=== PATIENT | male | born 1960 | race Caucasian/White ===

== ENCOUNTER → 2018-09-06 | Outpatient (REF) ==
--- NOTE | 2018-09-07 02:00 | REP ---
Clinical: Pain and disability. Technique: Internal rotation, external rotation, and Y view of the left shoulder. Findings: Acromioclavicular joint demonstrates cortical irregularity with spurring and subtle widening. The ossified glenoid rim demonstrates subtle sclerosis and blunting. No obvious periarticular calcifications or loose bodies noted. The subacromial space is normal. Impression: Moderate general degenerative changes Electronically Signed by Jose Qureshi MD 09/07/2018 01:52 A
== END ==
LOC: M SMT 11:57
PROVIDERS: ATTEND Internal Medicine
DX: Z00.00 Encounter for general adult medical examination without abnormal findings (principal)

== ENCOUNTER → 2018-12-30 | Outpatient (CLI) | payer SELFPAY | LOC: M OUTALCOH 10:19 | PROVIDERS: ATTEND Psychiatry & Neurology Psychiatry | DX: F10.10 Alcohol abuse, uncomplicated (principal) ==

== ENCOUNTER 2019-01-19 10:00 | Outpatient (RCR) | payer SELFPAY | END 2019-01-20 | LOC: M OUTALCOH 10:00 | PROVIDERS: ATTEND Psychiatry & Neurology Psychiatry | DX: F10.10 Alcohol abuse, uncomplicated (principal) ==

== ENCOUNTER 2019-02-17 08:00 | Outpatient (RCR) | payer SELFPAY | END 2019-02-19 | LOC: M OUTALCOH 08:00 | PROVIDERS: ATTEND Psychiatry & Neurology Psychiatry | DX: F10.10 Alcohol abuse, uncomplicated (principal) ==

== ENCOUNTER 2019-03-16 09:30 | Outpatient (RCR) | payer SELFPAY | END 2019-03-22 | LOC: M OUTALCOH 09:30 | PROVIDERS: ATTEND Psychiatry & Neurology Psychiatry | DX: F10.10 Alcohol abuse, uncomplicated (principal) ==

== ENCOUNTER 2019-04-10 08:00 | Outpatient (RCR) | payer SELFPAY | END 2019-04-22 | LOC: M OUTALCOH 08:00 | PROVIDERS: ATTEND Psychiatry & Neurology Psychiatry | DX: F10.10 Alcohol abuse, uncomplicated (principal) ==

== ENCOUNTER 2019-04-26 08:57 | Outpatient (RCR) | payer SELFPAY | END 2019-05-22 | LOC: M OUTALCOH 08:57 | PROVIDERS: ATTEND Psychiatry & Neurology Psychiatry | DX: F10.10 Alcohol abuse, uncomplicated (principal) ==

== ENCOUNTER 2019-05-03 13:49 | Outpatient (RCR) | payer SELFPAY | END 2019-05-22 | LOC: M OUTALCOH 13:49 | PROVIDERS: ATTEND Psychiatry & Neurology Psychiatry | DX: F10.10 Alcohol abuse, uncomplicated (principal) ==

== ENCOUNTER 2020-02-05 18:54 | Emergency (ER) | payer MEDICARE, OTHER, SELFPAY ==
[~2020-02-05] VITALS: Ht 177.8 cm; Wt 133.7 kg
[2020-02-05] MEDS ORDERED: OMEP-221 PO (19:06)
[2020-02-05] MEDS ORDERED: LOSA100T50 PO (19:06)
[2020-02-05] MEDS ORDERED: HYDR12CA PO (19:06)
[2020-02-05] MEDS ORDERED: TAMS1CAP17 PO (19:06)
[2020-02-05 19:53] LABS: BASO % 0.8 % (0.0-1.0); EOS # 0.1 10^3/uL (0.0-0.5); EOS % 2.5 % (0.0-3.0); HEMATOCRIT 39.1 % (42.0-52.0); HEMOGLOBIN 13.3 g/dl (13.5-17.5); LYMPH # 0.7 10^3/uL (1.5-5.0); LYMPH % 13.5 % (24.0-44.0); MEAN CORPUSCULAR HEMOGLOBIN 34.1 pg (27.0-33.0); MEAN CORPUSCULAR VOLUME 100.3 fl (80.0-96.0); MONO # 0.7 10^3/uL (0.0-0.8); MONO % 13.5 % (0.0-5.0); NEUTROPHILS # 3.5 10^3/uL (1.5-8.5); NEUTROPHILS % 69.5 % (36.0-66.0); WHITE BLOOD COUNT 5.1 10^3/uL (4.0-10.0)
[2020-02-05 20:04] LABS: INR 1.53; PROTHROMBIN TIME 18.1 SECONDS (11.8-14.0)
[2020-02-05 20:05] LABS: PARTIAL THROMBOPLASTIN TIME 31.7 SECONDS (25.0-38.4)
[2020-02-05] MEDS ORDERED: ISOVUE-370 76% 100ML VIAL As Ordered ONE (20:10)
[2020-02-05 20:15] LABS: PLATELET COUNT, AUTOMATED 96 10^3/uL (150-450)
[2020-02-05 20:17] LABS: ALBUMIN 2.4 GM/DL (3.2-5.2); ALT/SGPT 40 U/L (12-78); BILIRUBIN,DIRECT 2.1 MG/DL (0.0-0.2); BILIRUBIN,TOTAL 5.3 MG/DL (0.2-1.0); C REACTIVE PROTEIN QUANTITATIV 2.36 MG/DL (0.00-0.30); CK-MB VALUE MASS 3.1 NG/ML (<3.6); CPK CREATINE PHOSPHOKINASE 169 U/L (39-308); LIPASE 162 U/L (73-393); MB/CK RELATIVE INDEX 1.83 (< OR =4); NT-PRO BNP 229 PG/ML (<125); TOTAL PROTEIN 6.7 GM/DL (6.4-8.2); TROPONIN I < 0.02 NG/ML (< 0.10)
--- NOTE | 2020-02-05 20:44 | REPVR ---
PROCEDURE INFORMATION: Exam: CT Abdomen And Pelvis With Contrast Exam date and time: 02/05/2020 8:22 PM Age: 60 years old Clinical indication: Abdominal pain; Additional info: Abd swelling TECHNIQUE: Imaging protocol: Computed tomography of the abdomen and pelvis with intravenous contrast. Radiation optimization: All CT scans at this facility use at least one of these dose optimization techniques: automated exposure control; mA and/or kV adjustment per patient size (includes targeted exams where dose is matched to clinical indication); or iterative reconstruction. Contrast material: ISOVUE 370; Contrast volume: 100 ml; Contrast route: IV; COMPARISON: No relevant prior studies available. FINDINGS: Liver: The liver is small in size and slightly irregular in contour. There is hepatic steatosis. There is no focal lesion. Gallbladder and bile ducts: The gallbladder is normal.No calcified calculi. Normal bile ducts. Pancreas: The pancreas is normal. Spleen: There is splenomegaly, 18 cm.. No focal lesion. Adrenals: The adrenals are normal. Kidneys and ureters: The kidneys are normal.No hydronephrosis. Stomach and bowel: There are colonic diverticula. No associated wall thickening or inflammation. Appendix: No evidence of appendicitis. Intraperitoneal space: Moderate to severe ascites in the abdomen and pelvis. No focal fluid collection. No free air. Vasculature: Unremarkable. No abdominal aortic aneurysm. Lymph nodes: Unremarkable. No enlarged lymph nodes. Bladder: The bladder is normal with no evidence of calculi. Reproductive: Unremarkable as visualized. Bones/joints: There are advanced degenerative changes of the lumbar spine. There is moderate compression of the L1 vertebra which appears chronic. No acute fracture is identified. Soft tissues: Unremarkable. IMPRESSION: 1. The liver is irregular in contour without a focal lesion. This is suspicious for cirrhosis. There is also splenomegaly suggestive of portal venous hypertension. 2. There is moderate to severe ascites in the abdomen and pelvis. 3. Minimal colonic diverticula. No evidence of acute diverticulitis. Electronically signed by: Matt Medina On 02/05/2020 20:43:52 PM
[2020-02-05] MEDS ORDERED: LACTULOSE 20 GM/30 ML SYRUP UD PO ONE (21:15)
[2020-02-05] MEDS ORDERED: FUROSEMIDE 40MG/4ML VIAL (J1940) IV ONE (21:15)
[2020-02-05] MEDS ORDERED: LASI20TA3 PO (21:17)
[2020-02-05] MEDS ORDERED: LACT20EL PO (21:17)
[2020-02-05 21:26] VITALS: BP 142/87
[2020-05-22] MEDS ORDERED: METO1TAB32 PO (13:55)
[2020-05-22] MEDS ORDERED: MONT10TA4 PO (13:55)
== END 2020-02-05 21:34 | disposition home or self-care (01) ==
LOC: M ED 18:54
DX: K70.31 Alcoholic cirrhosis of liver with ascites (principal); E72.20 Disorder of urea cycle metabolism, unspecified; I10 Essential (primary) hypertension; J45.909 Unspecified asthma, uncomplicated; Z79.899 Other long term (current) drug therapy
CPT/HCPCS: 74177; 80047; 80076; 82140; 82550; 82553; 83690; 83880; 84484; 85025; 85049; 85055; 85610; 85730; 86140; 93041; 96374; 99284; J1940; Q9967

== ENCOUNTER 2020-03-09 08:20 | Inpatient (IN) | payer MEDICARE, OTHER ==
[~2020-03-09] VITALS: Ht 177.8 cm; Wt 126.8 kg
[~2020-03-09 08:20] MED LIST: HYDR12CA PO; LACT20EL PO; LASI20TA3 PO; LOSA100T50 PO; OMEP-221 PO; TAMS1CAP17 PO
[2020-03-09 09:32] LABS: BASO % 0.8 % (0.0-1.0); EOS # 0.2 10^3/uL (0.0-0.5); EOS % 3.2 % (0.0-3.0); HEMATOCRIT 33.8 % (42.0-52.0); HEMOGLOBIN 11.1 g/dl (13.5-17.5); LYMPH # 0.6 10^3/uL (1.5-5.0); LYMPH % 11.8 % (24.0-44.0); MEAN CORPUSCULAR HEMOGLOBIN 32.9 pg (27.0-33.0); MEAN CORPUSCULAR HGB CONC 32.8 g/dl (32.0-36.5); MEAN CORPUSCULAR VOLUME 100.3 fl (80.0-96.0); MONO # 0.8 10^3/uL (0.0-0.8); NEUTROPHILS # 3.5 10^3/uL (1.5-8.5); RED BLOOD COUNT 3.37 10^6/uL (4.30-6.10); WHITE BLOOD COUNT 5.1 10^3/uL (4.0-10.0)
[2020-03-09 09:33] LABS: PLATELET COUNT, AUTOMATED 96 10^3/uL (150-450)
[2020-03-09 09:42] LABS: INR 1.44; PROTHROMBIN TIME 17.3 SECONDS (11.8-14.0)
[2020-03-09 10:00] LABS: D-DIMER QUANT > 4000.0 ng/ml (<500)
[2020-03-09 10:09] LABS: PARTIAL THROMBOPLASTIN TIME 32.4 SECONDS (25.0-38.4)
--- NOTE | 2020-03-09 10:56 | REP ---
CHEST PORTABLE: REASON: Cough and dyspnea. PRIORS: None. FINDINGS: The technique utilized in obtaining the radiograph has magnified the cardiac silhouette and accentuated the interstitial markings. The superior mediastinal structures are midline. The cardiac silhouette is unremarkable in size, shape, and position. The diaphragmatic surfaces of the lungs are regular, and the costophrenic angles are clear. The pulmonary sr are clear. The imaged osseous structures are intact. IMPRESSION: There is no acute cardiopulmonary disease. Electronically Signed by Aris Hassan DO 03/09/2020 11:00 A
[2020-03-09 11:52] LABS: ALBUMIN 2.2 GM/DL (3.2-5.2); ALT/SGPT 30 U/L (12-78); AMYLASE 36 U/L (25-115); BILIRUBIN,DIRECT 1.2 MG/DL (0.0-0.2); BILIRUBIN,TOTAL 2.5 MG/DL (0.2-1.0); BLOOD UREA NITROGEN 10 MG/DL (7-18); CARBON DIOXIDE LEVEL 30 MEQ/L (21-32); CHLORIDE LEVEL 105 MEQ/L (98-107); CK-MB VALUE MASS 2.5 NG/ML (<3.6); CPK CREATINE PHOSPHOKINASE 152 U/L (39-308); CREATININE FOR GFR 0.82 MG/DL (0.70-1.30); GLOMERULAR FILTRATION RATE > 60.0 (>49); GLUCOSE, FASTING 116 MG/DL (70-100); MB/CK RELATIVE INDEX 1.64 (< OR =4); POTASSIUM SERUM 4.2 MEQ/L (3.5-5.1); SODIUM LEVEL 138 MEQ/L (136-145); THYROXINE (T4) 9.1 UG/DL (4.5-12.0); TOTAL PROTEIN 6.2 GM/DL (6.4-8.2); TROPONIN I < 0.02 NG/ML (< 0.10)
[2020-03-09] MEDS ORDERED: FUROSEMIDE 40MG/4ML VIAL (J1940) IV ONE (13:15)
[2020-03-09] MEDS ORDERED: LACTULOSE 20 GM/30 ML SYRUP UD PO ONE ×2 (13:15→15:00)
[2020-03-09] MEDS ORDERED: CONS10SO3 PO (13:30)
[2020-03-09] MEDS ORDERED: FURO20TA2 PO (13:30)
[2020-03-09] MEDS ORDERED: FLUT44IN INH (13:30)
[2020-03-09] MEDS ORDERED: ISOVUE-370 76% 100ML VIAL As Ordered ONE (13:58)
--- NOTE | 2020-03-09 13:59 | HPEPDOC ---
General Date of Admission 03/09/20 Date of Service: Mar 09, 2020 Chief Complaint The patient is a 60-year-old male admitted with a reason for visit of General Medical. Source: Patient Exam Limitations: No limitations Timing/Duration: Week(s) Severity: Mild, Moderate Associated Symptoms: Shortness of breath History of Present Illness Patient is 60 years old male with past history of EtOH abuse, recently diagnosed cirrhosis, hypertension, arthritis presented hospital with increased abdominal girth and dyspnea. Patient stated that few months ago his been diagnosed with cirrhosis, he was prescribed lactulose and Lasix. However he ran out of medications and for past few days he has been having increased shortness of breath with increased abdominal distention. Patient is poor historian. Patient stated that he continues to drink but less than before, he drinks around 12 beer bottles in a week. In emergency room patient was found to have elevated ammonia level of 63, total bili 2.5, d-dimer 4000. Chest x-ray negative for acute pulmonary infiltrate Home Medications Scheduled Fluticasone Propionate (Flovent Hfa) 44 Mcg/Act Aer.w.adap, 1 PUFF INH BID, (Reported) Furosemide (Furosemide) 20 Mg Tablet, 20 MG PO DAILY, (Reported) Hydrochlorothiazide (Hydrochlorothiazide) 12.5 Mg Capsule, 12.5 MG PO DAILY, (Reported) Losartan Potassium (Losartan Potassium) 100 Mg Tablet, 100 MG PO DAILY, (Reported) Omeprazole (Omeprazole) 40 Mg Capsule.dr, 40 MG PO DAILY, (Reported) Tamsulosin Hcl (Tamsulosin HCl) 0.4 Mg Capsule, 0.4 MG PO DAILY, (Reported) Scheduled PRN Lactulose (Constulose) 10 Gm/15 Ml Solution, 30 ML PO QAM PRN for CONSTIPATION, (Reported) Allergies Coded Allergies: No Known Allergies (Unverified , 02/05/20) Past Medical History Medical History Arthritis, cirrhosis, EtOH abuse, hypertension Family History Mother had diabetes Social History * Smoker: former Smoker Alcohol: heavy Drugs: marijuana A-FIB/CHADSVASC A-FIB History Current/History of A-Fib/PAF?: No Current PO Anticoag Therapy: No Review of Systems Constitutional: Reports: Weakness; Denies: Chills, Fever Eyes: Denies: Pain ENT: Denies: Head Aches Skin: Denies: Rash, Lesions Pulmonary: Reports: Dyspnea Cardiovascular: Denies: Chest Pain, Palpitations Gastrointestinal: Reports: Other Symptoms (abdominal distention); Denies: Nausea, Vomiting Genitourinary: Denies: Dysuria Hematologic: Denies: Bruising Endocrine: Denies: Polydipsia, Polyphagia Musculoskeletal: Denies: Neck Pain, Back Pain Neurological: Denies: Weakness Psych: Reports: Mood Normal Physical Examination General Exam: Positive: Alert, Cooperative Eye Exam: Positive: PERRLA ENT Exam: Positive: Atraumatic Neck Exam: Positive: Supple; Negative: JVD Chest Exam: Positive: Diminished Heart Exam: Positive: Rate Normal Telemetry: Positive: No significant arrhythmia Abdomen Exam: Positive: BS Hypoactive, Other (significant abdominal distention) Extremity Exam: Negative: Clubbing, Cyanosis Skin Exam: Positive: Nl turgor and temperature Neuro Exam: Positive: Strength at 5/5 X4 ext, Cranial Nerves 3-12 NL Psych Exam: Positive: Mental status NL Vital Signs Vital Signs Date Time Temp Pulse Resp B/P (MAP) Pulse Ox O2 Delivery O2 Flow Rate FiO2 03/09/20 11:45 87 20 108/63 (78) 92 Room Air 03/09/20 08:21 99.1 Laboratory Data Labs 24H Laboratory Tests 2 03/09/20 09:17: Immature Granulocyte % (Auto) 0.2, Neutrophils (%) (Auto) 68.0H, Lymphocytes (%) (Auto) 11.8L, Monocytes (%) (Auto) 16.0H, Eosinophils (%) (Auto) 3.2H, Basophils (%) (Auto) 0.8, Neutrophils # (Auto) 3.5, Lymphocytes # (Auto) 0.6L, Monocytes # (Auto) 0.8, Eosinophils # (Auto) 0.2, Basophils # (Auto) 0.0, Nucleated Red Blood Cells % (auto) 0.0, Immature Platelet Fraction 3.4, Prothrombin Time 17.3H, Prothromb Time International Ratio 1.44, Activated Partial Thromboplast Time 32.4, D-Dimer, Quantitative > 4000.0H, Anion Gap 3L, Glomerular Filtration Rate > 60.0, Calcium Level 8.0L, Total Bilirubin 2.5H, Direct Bilirubin 1.2H, Aspartate Amino Transf (AST/SGOT) 65H, Alanine Aminotransferase (ALT/SGPT) 30, Alkaline Phosphatase 192H, Ammonia 63H, Total Creatine Kinase 152, Creatine Kinase MB 2.5, Creatine Kinase MB Relative Index 1.64, Troponin I < 0.02, Total Protein 6.2L, Albumin 2.2L, Albumin/Globulin Ratio 0.6, Amylase Level 36, Thyroid Stimulating Hormone (TSH) 1.740, Thyroxine (T4) 9.1 03/09/20 11:21: Urine Color ALEJANDRO, Urine Appearance CLEAR, Urine pH 6.0, Urine Specific [place] 1.014, Urine Protein NEGATIVE, Urine Glucose (UA) NEGATIVE, Urine Ketones NEGATIVE, Urine Blood 1+H, Urine Nitrite POSITIVEH, Urine Bilirubin NEGATIVE, U rine Urobilinogen 4.0H, Urine Leukocyte Esterase 3+H, Urine WBC (Auto) 42H, Urine RBC (Auto) 8H, Urine Hyaline Casts (Auto) 0, Urine Bacteria (Auto) 2+H, Urine Squamous Epithelial Cells 0, Urine Calcium Oxalate Cryst (Auto) SMALL, Urine Mucus (Auto) SMALL, Urine Sperm (Auto) CBC/BMP Laboratory Tests 03/09/20 09:17 Microbiology Microbiology 03/09/20 Urine Culture, Received Pending 03/09/20 Respiratory Virus Panel (PCR) ([facility]) - Final, Complete Assessment/Plan Patient is 60 years old male with past history of EtOH abuse, recently diagnosed cirrhosis, hypertension, arthritis presented hospital with increased abdominal g irth and dyspnea. Patient stated that few months ago his been diagnosed with cirrhosis, he was prescribed lactulose and Lasix. However he ran out of medications and for past few days he has been having increased shortness of breath with increased abdominal distention. Patient is poor historian. Patient stated that he continues to drink but less than before, he drinks around 12 beer bottles in a week. In emergency room patient was found to have elevated ammonia level of 63, total bili 2.5, d-dimer 4000. Chest x-ray negative for acute pulmonary infiltrate Problems (1) Hyperammonemia Status: Acute Problem Text: Most likely secondary to alcoholic cirrhosis Continue lactulose (2) Cirrhosis Status: Chronic Problem Text: Patient been recently diagnosed with cirrhosis, he was running out of Lasix and lactulose We'll do CT abdomen and pelvis. There is concern for ascites given significant abdominal distention Continue lactulose, Lasix and spironolactone (3) Dyspnea Status: Acute Problem Text: Most likely secondary to ascites However d-dimer was significantly elevated Procedures chest CTA Plan / VTE VTE Prophylaxis Ordered?: Yes MILTON GUARDADO DO Mar 09, 2020 13:59
[2020-03-09 15:50] VITALS: BP 128/91
[2020-03-09] MEDS: SPIRONOLACTONE 25 MG TAB PO SCH (17:21)
[2020-03-09] MEDS: FLUTICASONE HFA 44 MCG 10.6GM INHALER (FLOVENT) INH SCH (20:10)
[2020-03-09] MEDS: HEPARIN SOD (PORCINE) 5000UNITS/ML 1ML VIAL/SYRINGE SC SCH (20:33)
[2020-03-09] MEDS: FUROSEMIDE 40MG/4ML VIAL (J1940) IV SCH (20:33)
[2020-03-09] MEDS: THIAMINE 100 MG TAB PO SCH (20:37)
[2020-03-09] MEDS ORDERED: LORazepam 2 MG TAB PO PRN (20:45)
[2020-03-09] MEDS ORDERED: FLUTICASONE HFA 44 MCG 10.6GM INHALER (FLOVENT) INH SCH (21:00)
[2020-03-09 22:00] VITALS: BP 119/84
[2020-03-10] MEDS: ACETAMINOPHEN TAB 650MG DOSE (2X325MG) PO PRN ×3 (00:48→20:25)
[2020-03-10 06:00] VITALS: BP 120/80
[2020-03-10 06:53] LABS: HEMOGLOBIN 10.8 g/dl (13.5-17.5); MEAN CORPUSCULAR HGB CONC 32.7 g/dl (32.0-36.5); MEAN CORPUSCULAR VOLUME 100.9 fl (80.0-96.0); RED BLOOD COUNT 3.27 10^6/uL (4.30-6.10); WHITE BLOOD COUNT 4.4 10^3/uL (4.0-10.0)
[2020-03-10 07:06] LABS: PLATELET COUNT, AUTOMATED 88 10^3/uL (150-450)
[2020-03-10 07:13] LABS: ALBUMIN 1.9 GM/DL (3.2-5.2); ALT/SGPT 26 U/L (12-78); BLOOD UREA NITROGEN 10 MG/DL (7-18); CALCIUM LEVEL 8.4 MG/DL (8.8-10.2); CARBON DIOXIDE LEVEL 31 MEQ/L (21-32); CHLORIDE LEVEL 103 MEQ/L (98-107); CREATININE FOR GFR 0.96 MG/DL (0.70-1.30); GLOMERULAR FILTRATION RATE > 60.0 (>49); GLUCOSE, FASTING 84 MG/DL (70-100); MAGNESIUM LEVEL 1.9 MG/DL (1.8-2.4); POTASSIUM SERUM 3.6 MEQ/L (3.5-5.1); SODIUM LEVEL 140 MEQ/L (136-145); TOTAL PROTEIN 5.9 GM/DL (6.4-8.2)
--- NOTE | 2020-03-10 07:46 | REP ---
REASON: Chest pain. CONTRAST: 100 mL Isovue-370. PRIORS: None. There is suboptimal visualization of the pulmonary arterial vasculature. Tiny emboli cannot be ruled out. No large emboli are present. The thoracic aorta is within normal limits. There is no mediastinal or hilar adenopathy. There are no pleural or pericardial effusions. The imaged osseous structures are within normal limits. The imaged lung sr are within normal limits, showing no abnormal nodules, masses, or opacities. IMPRESSION: Suboptimal examination; however, no significant emboli are identified. Tiny emboli cannot be ruled out. Electronically Signed by Aris Hassan DO 03/10/2020 08:00 A
--- NOTE | 2020-03-10 07:52 | REP ---
REASON: History of cirrhosis. COMPARISON: 02/05/2020 CONTRAST: 100 mL Isovue-370. There is ascites, status quo. The liver, spleen, pancreas, adrenal glands, and kidneys are unchanged. There are cirrhotic features to the liver, status quo. There is no free air. There is no significant change in the bowel loops or their mesenteries. There is no change in the abdominal aorta and para-aortic regions. No acute masses or adenopathy have developed since the last exam. IMPRESSION: No significant change from 02/05/2020. There is evidence of cirrhosis and ascites, status quo. There is mild splenomegaly, status quo. Electronically Signed by Aris Hassan DO 03/10/2020 08:00 A
[2020-03-10] MEDS ORDERED: hydroCHLOROthiazide 12.5 MG CAPSULE PO SCH (09:00)
[2020-03-10] MEDS: HEPARIN SOD (PORCINE) 5000UNITS/ML 1ML VIAL/SYRINGE SC SCH ×2 (09:00→20:24)
[2020-03-10] MEDS: LOSARTAN 50MG TABLET PO SCH (09:00)
[2020-03-10] MEDS: FOLIC ACID 1 MG TAB PO SCH (09:14)
[2020-03-10] MEDS: THIAMINE 100 MG TAB PO SCH ×2 (09:14→20:25)
[2020-03-10] MEDS: SPIRONOLACTONE 25 MG TAB PO SCH ×2 (09:14→17:24)
[2020-03-10] MEDS: MULTIVITAMINS/MINERALS THERAP 1 TAB PO SCH (09:14)
[2020-03-10] MEDS: TAMSULOSIN 0.4 MG CAP PO SCH (09:14)
[2020-03-10] MEDS: LACTULOSE 20 GM/30 ML SYRUP UD PO SCH (09:14)
[2020-03-10] MEDS: FUROSEMIDE 40MG/4ML VIAL (J1940) IV SCH ×2 (09:15→20:25)
[2020-03-10] MEDS: FLUTICASONE HFA 44 MCG 10.6GM INHALER (FLOVENT) INH SCH ×2 (12:15→18:14)
--- NOTE | 2020-03-10 13:57 | IPNPDOC ---
Text Note Date of Service The patient was seen on 03/10/20. NOTE Objective: Patient continues to complain of abdominal distention. Patient stated that he feels better today, he developed a good urine output. Subjective: VITAL SIGNS: Please see below. GENERAL: awake, alert, NAD, morbidly obese HEENT: NCAT, anicteric sclera, GEOFFREY NECK: supple, no JVD CARDIOVASCULAR EXAMINATION: NS1S2, regular rate/rhythm RESPIRATORY EXAMINATION: CTA b/l, no wheezes/rales/rhonchi ABDOMINAL EXAMINATION: positive bowel sounds x 4, NT, severely distended, obese EXTREMITIES: +2 edema bilaterally SKIN: warm, no rashes. NEUROLOGICAL EXAMINATION: AAO x 3, no motor/sensory deficits PSYCHIATRIC EXAMINATION: calm, normal affect Assessment and plan Patient is 60 years old male with past history of EtOH abuse, recently diagnosed cirrhosis, hypertension, arthritis presented hospital with increased abdominal girth and dyspnea. Patient stated that few months ago his been diagnosed with cirrhosis, he was prescribed lactulose and Lasix. However he ran out of medications and for past few days he has been having increased shortness of breath with increased abdominal distention. Patient is poor historian. Patient stated that he continues to drink but less than before, he drinks around 12 beer bottles in a week. In emergency room patient was found to have elevated ammonia level of 63, total bili 2.5, d-dimer 4000. Chest x-ray negative for acute pulmonary infiltrate (1) Hyperammonemia Most likely secondary to alcoholic cirrhosis Continue lactulose (2) Cirrhosis Patient been recently diagnosed with cirrhosis, he was running out of Lasix and lactulose CT abdomen and pelvis showed: There is evidence of cirrhosis and ascites, status quo. There is mild splenomegaly, status quo. Will proceed with diagnostic and therapeutic paracentesis Continue lactulose, Lasix and spironolactone (3) Dyspnea Improved Most likely secondary to ascites CTA was done, negative for PE Macrocytic anemia Most likely secondary to EtOH abuse We'll check B12 and folate EtOH abuse CIWA VS,Fishbone, I+O VS, Fishbone, I+O Laboratory Tests 03/10/20 06:27 Vital Signs Date Time Temp Pulse Resp B/P (MAP) Pulse Ox O2 Delivery O2 Flow Rate FiO2 03/10/20 09:00 112/71 03/10/20 06:00 90 03/10/20 06:00 97.9 20 94 Room Air I&O- Last 24 Hours up to 6 AM 03/10/20 06:00 Intake Total 730 ml Output Total 5575 ml Balance -4845 ml MILTON GUARDADO DO Mar 10, 2020 13:57
[2020-03-10 14:00] VITALS: BP 111/72
--- NOTE | 2020-03-10 19:09 | ECGEPIP ---
[facility] - ED Test Date: 2020-03-09 Pat Name: JORGE VALERIO Department: Room: [place] [id number] Gender: Male Orthopedic Specialist: donovan : 1960 Requested By: JOLIE Riojas Order Number: [id number] Reading MD: Maximino Cabrera Measurements Intervals [place] Rate: 93 P: AL: 0 QRS: -13 QRSD: 81 T: 22 QT: 319 QTc: 398 Interpretive Statements SUPRAVENTRICULAR RHYTHM LOW QRS VOLTAGE IN PRECORDIAL LEADS POOR R WAVE PROGRESSION NONSPECIFIC ST & T-WAVE ABNORMALITY NO PRIORS FOR COMPARISON Electronically Signed on 03-10-2020 19:09:27 EDT by Maximino Cabrera
[2020-03-10 22:00] VITALS: BP 108/71
[2020-03-11 06:00] VITALS: BP 111/69
[2020-03-11] MEDS: FLUTICASONE HFA 44 MCG 10.6GM INHALER (FLOVENT) INH SCH ×2 (07:59→20:15)
[2020-03-11 08:00] VITALS: BP 111/69
[2020-03-11] MEDS: HEPARIN SOD (PORCINE) 5000UNITS/ML 1ML VIAL/SYRINGE SC SCH ×2 (08:12→19:56)
[2020-03-11] MEDS: FUROSEMIDE 40MG/4ML VIAL (J1940) IV SCH ×2 (08:34→19:57)
[2020-03-11] MEDS: LACTULOSE 20 GM/30 ML SYRUP UD PO SCH (08:35)
[2020-03-11] MEDS: TAMSULOSIN 0.4 MG CAP PO SCH (08:36)
[2020-03-11] MEDS: THIAMINE 100 MG TAB PO SCH ×2 (08:36→19:56)
[2020-03-11] MEDS: MULTIVITAMINS/MINERALS THERAP 1 TAB PO SCH (08:36)
[2020-03-11] MEDS: SPIRONOLACTONE 25 MG TAB PO SCH ×2 (08:36→16:45)
[2020-03-11] MEDS: FOLIC ACID 1 MG TAB PO SCH (08:36)
[2020-03-11] MEDS: ACETAMINOPHEN TAB 650MG DOSE (2X325MG) PO PRN ×2 (08:41→19:59)
[2020-03-11 08:59] LABS: HEMATOCRIT 31.9 % (42.0-52.0); HEMOGLOBIN 10.6 g/dl (13.5-17.5); MEAN CORPUSCULAR HEMOGLOBIN 33.7 pg (27.0-33.0); MEAN CORPUSCULAR HGB CONC 33.2 g/dl (32.0-36.5); MEAN CORPUSCULAR VOLUME 101.3 fl (80.0-96.0); RED BLOOD COUNT 3.15 10^6/uL (4.30-6.10); WHITE BLOOD COUNT 3.5 10^3/uL (4.0-10.0)
[2020-03-11] MEDS: LOSARTAN 50MG TABLET PO SCH (09:00)
[2020-03-11 09:01] LABS: PLATELET COUNT, AUTOMATED 81 10^3/uL (150-450)
[2020-03-11 09:15] LABS: INR 1.53; PROTHROMBIN TIME 18.1 SECONDS (11.8-14.0)
[2020-03-11 09:25] LABS: ALT/SGPT 27 U/L (12-78); BILIRUBIN,TOTAL 2.1 MG/DL (0.2-1.0); BLOOD UREA NITROGEN 10 MG/DL (7-18); CALCIUM LEVEL 8.1 MG/DL (8.8-10.2); CARBON DIOXIDE LEVEL 32 MEQ/L (21-32); CHLORIDE LEVEL 101 MEQ/L (98-107); CREATININE FOR GFR 0.97 MG/DL (0.70-1.30); GLOMERULAR FILTRATION RATE > 60.0 (>49); GLUCOSE, FASTING 154 MG/DL (70-100); MAGNESIUM LEVEL 1.9 MG/DL (1.8-2.4); POTASSIUM SERUM 3.5 MEQ/L (3.5-5.1); SODIUM LEVEL 139 MEQ/L (136-145); TOTAL PROTEIN 5.7 GM/DL (6.4-8.2)
[2020-03-11 10:39] LABS: FOLATE > 24.0 NG/ML; VITAMIN B12 LEVEL 1267 PG/ML
[2020-03-11 13:08] LABS: HEPATITIS A ANTIBODY IGM NEGATIVE (NEGATIVE); HEPATITIS B CORE ANTIBODY IGM NEGATIVE (NEGATIVE); HEPATITIS B SURFACE ANTIGEN NEGATIVE (NEGATIVE); HEPATITIS C VIRUS ABY INDEX 0.2 INDEX (<0.8)
[2020-03-11] MEDS ORDERED: SODIUM BICARBONATE 8.4% INJ 50MEQ 50 ML VIAL As Ordered ONE (14:08)
--- NOTE | 2020-03-11 14:49 | IPNPDOC ---
Text Note Date of Service The patient was seen on 03/11/20. NOTE Mr. Okeefe was seen at bedside today and reported no overnight changes to his condition. He has been urinating frequently since being put on the lasix and has experienced no dysuria. He has not yet had a bowel movement but states the he feels he will be going soon. He denies any overnight headaches, SOB, chest pains. Physical Exam: Vitals: See below General: Obese male laying in bed in no apparent distress HEENT: Normocephalic and atraumatic Respiratory: Scattered expiratory wheezing in both lung sr. normal respiratory rate and remainder of sounds unremarkable CV: RRR. +S1,S2. No murmurs, rubs, gallops Abdomen: Obese abdomen. Soft and nontender. No organomegaly noted. No rashes Extremities: 2+ pitting edema to mid thigh Assessment and Plan: This is a 70 year old male with a pmhx significant for recently diagnosed cirrhosis, EtOH abuse (cut back to <2 drinks a day a few months ago) who presented to the hospital with dyspnea and increased abdominal girth 2/2 running out of his home lasix and lactulose medications. In the ER he was found to have a ammonia level of 63, total bilirubin of 2.5, D-dimer of 4000 and a negative CXR. #Hyperammonemia: -Secondary to alcoholic cirrhosis vs DOLL -Continue lactulose - ammonia 45 today, was 63 yesterday #Cirrhosis with ascites: -recent diagnosis -Diagnostic and Therapeutic paracentesis being performed today- Will assess ascitic fluid for WBC > 250 and give abx if appropriate -Continue Furosemide 40 mg BID IV #Macrocyotic anemia: -Mild and likely 2/2 to chronic EtOH abuse but have not ruled out MDS -Vit B12 and folate are normal -Should follow up with PCP outpatient if needed #Hx of EtOH Abuse -Patient states his drinking is much improved as of three months ago - down to 0-2 drinks a day now -CIWA -Hepatitis panel negative -Thiamine HCl 100mg BID PO -Folic Acid 1 mg PO QD -Multivitamin PO QD #DVT Prophylaxis: -Heparin 5000U SC Q12H VS,Fishbone, I+O VS, Fishbone, I+O Laboratory Tests 03/11/20 08:41 Vital Signs Date Time Temp Pulse Resp B/P (MAP) Pulse Ox O2 Delivery O2 Flow Rate FiO2 03/11/20 14:05 98.4 85 16 99 Room Air 03/11/20 09:00 111/69 I&O- Last 24 Hours up to 6 AM 03/11/20 05:59 Intake Total 1300 ml Output Total 1200 ml Balance 100 ml ROBIN BRODERICK OMS-3 Mar 11, 2020 14:49
[2020-03-11 15:19] LABS: APPEARANCE, BODY FLUID HAZY (CLEAR); ASCITES FL COLOR YELLOW (COLORLESS); SOURCE, BODY FLUID ASCITES
[2020-03-11 15:44] LABS: SOURCE, BODY FLUID ALBUMIN ASCITES; SOURCE, BODY FLUID GLUCOSE ASCITES; SOURCE, BODY FLUID TOT PROTEIN ASCITES
[2020-03-11] MEDS: CIPROFLOXACIN 500MG TABLET PO SCH (16:45)
--- NOTE | 2020-03-11 18:43 | REP ---
Ultrasound-guided paracentesis The procedure was performed by ANJANA Gupta, under the direct supervision of Dr. Stoner. The risks and benefits of the procedure were explained to the patient and informed consent was obtained both verbally and written. Directly prior to the start of the procedure, a formal timeout was completed in the procedure room. Under ultrasound guidance, the largest pocket of fluid in the right flank was localized and skin was marked. The skin was then prepped and draped in a sterile fashion. 10 ml of 1% lidocaine 10 mg/ml was used as a local anesthetic. Using ultrasound guidance, an 8-[place] multi side-hole catheter was inserted using trocar technique. 8,450 mL of yellow colored fluid was withdrawn, 200 ml's were sent to the lab for further analysis, and the rest was discarded. The patient tolerated the procedure well and there were no immediate complications. After the appropriate monitored convalescence the patient was discharged from the department. Reviewed by ANJANA Ford 03/11/2020 05:10 P Electronically Signed by Ziggy Stoner MD 03/11/2020 06:34 P
[2020-03-11 20:00] VITALS: BP 111/67
[2020-03-11 22:00] VITALS: BP 111/67
[2020-03-12] VITALS (10 sets, daily range): BP systolic 110–134; BP diastolic 52–84
[2020-03-12] MEDS: CIPROFLOXACIN 500MG TABLET PO SCH (05:38)
[2020-03-12] MEDS: FLUTICASONE HFA 44 MCG 10.6GM INHALER (FLOVENT) INH SCH ×2 (08:00→18:11)
[2020-03-12 08:10] LABS: HEMATOCRIT 35.5 % (42.0-52.0); MEAN CORPUSCULAR HGB CONC 33.8 g/dl (32.0-36.5); MEAN CORPUSCULAR VOLUME 100.6 fl (80.0-96.0); RED BLOOD COUNT 3.53 10^6/uL (4.30-6.10)
[2020-03-12 08:13] LABS: PLATELET COUNT, AUTOMATED 88 10^3/uL (150-450)
[2020-03-12 08:28] LABS: ALT/SGPT 28 U/L (12-78); BILIRUBIN,TOTAL 2.1 MG/DL (0.2-1.0); BLOOD UREA NITROGEN 10 MG/DL (7-18); CALCIUM LEVEL 8.2 MG/DL (8.8-10.2); CARBON DIOXIDE LEVEL 33 MEQ/L (21-32); CHLORIDE LEVEL 101 MEQ/L (98-107); CREATININE FOR GFR 0.88 MG/DL (0.70-1.30); GLOMERULAR FILTRATION RATE > 60.0 (>49); GLUCOSE, FASTING 100 MG/DL (70-100); POTASSIUM SERUM 3.5 MEQ/L (3.5-5.1); SODIUM LEVEL 140 MEQ/L (136-145)
[2020-03-12] MEDS: HEPARIN SOD (PORCINE) 5000UNITS/ML 1ML VIAL/SYRINGE SC SCH ×2 (09:00→20:10)
[2020-03-12] MEDS: LACTULOSE 20 GM/30 ML SYRUP UD PO SCH (09:33)
[2020-03-12] MEDS: FUROSEMIDE 40MG/4ML VIAL (J1940) IV SCH ×2 (09:34→20:10)
[2020-03-12] MEDS: SPIRONOLACTONE 25 MG TAB PO SCH ×2 (09:35→16:32)
[2020-03-12] MEDS: LOSARTAN 50MG TABLET PO SCH (09:36)
[2020-03-12] MEDS: MULTIVITAMINS/MINERALS THERAP 1 TAB PO SCH (09:36)
[2020-03-12] MEDS: TAMSULOSIN 0.4 MG CAP PO SCH (09:36)
[2020-03-12] MEDS: THIAMINE 100 MG TAB PO SCH (09:36)
[2020-03-12] MEDS: FOLIC ACID 1 MG TAB PO SCH (09:36)
--- NOTE | 2020-03-12 12:54 | IPNPDOC ---
Text Note Date of Service The patient was seen on 03/11/20. NOTE Mr. Okeefe was seen at bedside today and reported no overnight changes to his condition. He has been urinating frequently since being put on the lasix and has experienced no dysuria. He has not yet had a bowel movement but states the he feels he will be going soon. He denies any overnight headaches, SOB, chest pains. Physical Exam: Vitals: See below General: Obese male laying in bed in no apparent distress HEENT: Normocephalic and atraumatic Respiratory: Scattered expiratory wheezing in both lung sr. normal respiratory rate and remainder of sounds unremarkable CV: RRR. +S1,S2. No murmurs, rubs, gallops Abdomen: Obese abdomen. Soft and nontender. No organomegaly noted. No rashes Extremities: 2+ pitting edema to mid thigh Assessment and Plan: This is a 70 year old male with a pmhx significant for recently diagnosed cirrhosis, EtOH abuse (cut back to <2 drinks a day a few months ago) who presented to the hospital with dyspnea and increased abdominal girth 2/2 running out of his home lasix and lactulose medications. In the ER he was found to have a ammonia level of 63, total bilirubin of 2.5, D-dimer of 4000 and a negative CXR. #Hyperammonemia: -Secondary to alcoholic cirrhosis vs DOLL -Continue lactulose - ammonia 45 today, was 63 yesterday #Cirrhosis with ascites: -recent diagnosis -Diagnostic and Therapeutic paracentesis being performed today- Will assess ascitic fluid for WBC > 250 and give abx if appropriate -Continue Furosemide 40 mg BID IV #Macrocyotic anemia: -Mild and likely 2/2 to chronic EtOH abuse but have not ruled out MDS -Vit B12 and folate are normal -Should follow up with PCP outpatient if needed #Hx of EtOH Abuse -Patient states his drinking is much improved as of three months ago - down to 0-2 drinks a day now -CIWA -Hepatitis panel negative -Thiamine HCl 100mg BID PO -Folic Acid 1 mg PO QD -Multivitamin PO QD #DVT Prophylaxis: -Heparin 5000U SC Q12H VS,Fishbone, I+O VS, Fishbone, I+O Laboratory Tests 03/12/20 07:44 Vital Signs Date Time Temp Pulse Resp B/P (MAP) Pulse Ox O2 Delivery O2 Flow Rate FiO2 03/12/20 09:36 124/72 03/12/20 05:37 98.0 78 18 93 Room Air I&O- Last 24 Hours up to 6 AM 03/12/20 06:00 Intake Total 980 ml Output Total 40792 ml Balance -9945 ml ROBIN BRODERICK OMS-3 Mar 12, 2020 12:54 MILTON GUARDADO DO Mar 12, 2020 16:35
[2020-03-12] MEDS ORDERED: ALDA25TA2 PO ×3 (15:01→16:34)
--- NOTE | 2020-03-12 16:14 | DS.PDOC ---
Discharge Summary General Date of Admission Mar 09, 2020 at 13:42 Date of Discharge 03/12/2020 Discharge Summary PROCEDURES PERFORMED DURING STAY: [None]. ADMITTING DIAGNOSES: 1. Hyperammonemia 2. Cirrhosis 3. Dyspnea DISCHARGE DIAGNOSES: 1. Cirrhosis with ascites - resolving 2. Macrocytic anemia 3. Hx of EtOH abuse 4. Hx of Asthma COMPLICATIONS/CHIEF COMPLAINT: Ascites Due To Alcoholic Cirrhosis. HISTORY OF PRESENT ILLNESS: Patient is 60 years old male with past history of EtOH abuse, recently diagnosed cirrhosis, hypertension, arthritis presented hospital with increased abdominal girth and dyspnea. Patient stated that few months prior to discharge his been diagnosed with cirrhosis, he was prescribed lactulose and Lasix. However he ran out of medications and for past few days he has been having increased shortness of breath with increased abdominal distention. Patient is poor historian. Patient stated that he continues to drink but less than before, he drinks around 12 beer bottles in a week. In emergency room patient was found to have elevated ammonia level of 63, total bili 2.5, d-dimer 4000. Chest x-ray negative for acute pulmonary infiltrate HOSPITAL COURSE: Following admission Mr Okeefe received Lasix IV as well as lactulose for his hyperammonemia. He responded well to these treatments with reduced ammonia levels and frequent urination. He also received diagnostic and therapeutic abdominocentesis, where approximately 8.5 L of ascitic fluid was removed and found to be below indications of SBP prophylaxis. He was also noted to have a fairly pronounced bacteriuria with mild suprapubic tenderness so he received ciprofloxacin during his stay to treat for UTI. Due to his high paracentesis volume he was given albumin prior to his discharge. He also was found to have a slight macrocytic anemia and was found to not be vitamin B12 or folate deficient. He had a hepatitis panel which was negative. DISCHARGE MEDICATIONS: Please see below. ALLERGIES: Please see below. PHYSICAL EXAMINATION ON DISCHARGE: VITAL SIGNS: Please see below. General: Obese male laying in bed in no apparent distress. HEENT: Normocephalic and atraumatic Respiratory: Scattered expiratory wheezing in both lung sr. normal respiratory rate and remainder of sounds unremarkable. CV: RRR. +S1,S2. No murmurs, rubs, gallops Abdomen: Obese abdomen. Soft and nontender. No organomegaly noted. No rashes Extremities: 2+ pitting edema to mid thigh. no JVD or crackles LABORATORY DATA: Please see below. IMAGING: CXR 03/09/20: There is no acute cardiopulmonary disease. Aniography CT 03/09/20: Suboptimal examination; however, no significant emboli are identified. Tiny emboli cannot be ruled out. Abdomen/Pelvis CT 03/09/20: No significant change from 02/05/2020. There is evidence of cirrhosis and ascites, status quo. There is mild splenomegaly, status quo. Paracentesis US 03/11/20: 8,450 mL of yellow colored fluid was withdrawn, 200 ml's were sent to the lab for further analysis, and the rest was discarded. PROGNOSIS: fair ACTIVITY: [As tolerated]. DIET: as tolerated DISCHARGE PLAN: DISCHARGE INSTRUCTIONS: 1. 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 Please follow up with outpatient gastroenterology 3. Please follow up with primary care next week DISCHARGE CONDITION: [Stable]. TIME SPENT ON DISCHARGE: Greater than 40 minutes. I, Steffen Guardado, have independently examined this patient and performed my own physical exam, as well as reviewed the documentation. I have discussed in detail with the resident / student the findings and plan of treatment as documented by the resident / student. I agree with their findings and treatment plan. I will continue to follow the patient during this hospital stay. Vital Signs/I&Os Vital Signs Date Time Temp Pulse Resp B/P (MAP) Pulse Ox O2 Delivery O2 Flow Rate FiO2 03/12/20 15:36 98.2 80 18 125/52 96 Room Air I&O- Last 24 Hours up to 6 AM 03/12/20 06:00 Intake Total 980 ml Output Total 34789 ml Balance -9945 ml Laboratory Data Labs 24H Laboratory Tests 2 03/12/20 07:44: Nucleated Red Blood Cells % (auto) 0.0, Anion Gap 6L, Glomerular Filtration Rate > 60.0, Calcium Level 8.2L, Total Bilirubin 2.1H, Aspartate Amino Transf (AST/SGOT) 56H, Alanine Aminotransferase (ALT/SGPT) 28, Alkaline Phosphatase 190H, Total Protein 6.0L, Albumin 2.0L, Albumin/Globulin Ratio 0.5 CBC/BMP Laboratory Tests 03/12/20 07:44 Microbiology Microbiology 03/11/20 Blood Culture, Received Pending 03/11/20 Acid Fast Stain, Received Pending 03/11/20 Mycobacterial Culture, Received Pending 03/11/20 Fungal Smear, Received Pending 03/11/20 Fungal Culture, Received Pending 03/11/20 Gram Stain - Final, Resulted 03/11/20 Body Fluid Culture, Resulted Pending 03/09/20 Urine Culture - Final, Complete Escherichia Coli 03/09/20 Respiratory Virus Panel (PCR) ([facility]) - Final, Complete Discharge Medications Scheduled Fluticasone Propionate (Flovent Hfa) 44 Mcg/Act Aer.w.adap, 1 PUFF INH BID, (Reported) Lactulose (Lactulose) 10 Gm/15 Ml Solution, 30 ML PO QAM Losartan Potassium (Losartan Potassium) 100 Mg Tablet, 100 MG PO DAILY, (Reported) Omeprazole (Omeprazole) 40 Mg Capsule.dr, 40 MG PO DAILY, (Reported) Spironolactone (Aldactone) 25 Mg Tablet, 25 MG PO BID Tamsulosin Hcl (Tamsulosin HCl) 0.4 Mg Capsule, 0.4 MG PO DAILY, (Reported) Scheduled PRN Furosemide (Lasix) 40 Mg Tablet, 40 MG PO DAILY PRN for daily Allergies Coded Allergies: No Known Allergies (Unverified , 02/05/20) ROBIN BRODERICK-3 Mar 12, 2020 16:14 STEFFEN GUARDADO DO Mar 12, 2020 16:31
[2020-03-12] MEDS ORDERED: LASI40TA9 PO (16:25)
[2020-03-12] MEDS ORDERED: LACT20EL PO (16:26)
--- NOTE | 2020-03-14 09:14 | ECHO ---
DATE OF STUDY: 03/12/2020 REFERRING PHYSICIAN: Dr. Steffen Durham INDICATION: Dyspnea. HEIGHT: 178 cm. WEIGHT: 143 kg. 2-D MEASUREMENTS: Aortic root: 3.7 cm Left atrium: 3.2 cm Ventricular septum: 1.15 cm Posterior wall: 1.10 cm Left ventricle diastole: 5.3 cm Aortic annulus: 2.4 cm DOPPLER MEASUREMENTS: Trace aortic regurgitation No aortic stenosis Aortic valve velocity: 197 cm/sec LVOT velocity: 113 cm/sec LVOT VTI: 21.2 cm No mitral regurgitation No mitral stenosis Mitral E velocity: 66.9 cm/sec Mitral A velocity: 85.4 cm/sec Mitral deceleration time: 264 ms Trace tricuspid regurgitation No pulmonic regurgitation Pulmonary artery acceleration time: 95 ms MITRAL ANNULAR TISSUE DOPPLER: E prime septal: 6.7 cm/sec E prime lateral: 17.4 cm/sec DESCRIPTION: The rhythm was sinus, infrequent PVCs. Image quality was fair, however, subcostal windows were technically difficult. No pericardial effusion. This was 2-D, M-mode, color flow Doppler and pulse wave Doppler examination and included mitral annular tissue Doppler. CONCLUSIONS: 1. Normal left ventricle internal dimensions and wall thickness. Normal regional LV wall motion and wall thickening. Normal LV systolic function. LVEF 65% by visual estimate. Grade 1 LV diastolic dysfunction (impaired relaxation filling pattern). Normal left atrial size. 2. Moderate aortic valve sclerosis of a 3-cuspid aortic valve. Trace aortic regurgitation. No aortic stenosis. 3. Abbreviated pulmonary acceleration time suggestive of mild elevation of pulmonary artery systolic pressure. 4. Otherwise normal appearing echocardiogram Doppler findings. ADDITIONAL COMMENTS AND RECOMMENDATIONS: Suggest a followup echocardiogram Doppler in 3 years to follow progression of aortic valve disease.
[2020-05-22] MEDS ORDERED: MONT10TA4 PO (13:55)
[2020-05-22] MEDS ORDERED: METO1TAB32 PO (13:55)
== END 2020-03-12 20:35 | disposition home or self-care (01) | DRG 433 ==
LOC: M ED 08:20 → M ED INP 13:42 → M MS5PR 15:50
PROVIDERS: ADMIT Internal Medicine; ATTEND Internal Medicine
PROC: 0W9F3ZZ Drainage of Abdominal Wall, Percutaneous Approach (ICD-10-PCS; principal; 2020-03-11 15:00)
DX: K70.31 Alcoholic cirrhosis of liver with ascites (principal); E72.20 Disorder of urea cycle metabolism, unspecified; J45.909 Unspecified asthma, uncomplicated; D53.9 Nutritional anemia, unspecified; I10 Essential (primary) hypertension; M19.90 Unspecified osteoarthritis, unspecified site; Z79.899 Other long term (current) drug therapy

== ENCOUNTER → 2020-05-17 | Outpatient (CLI) | payer MEDICARE ==
[~2020-05-17] MED LIST changes: +ALDA25TA2 PO; +CONS10SO3 PO; +FLUT44IN INH; +FURO20TA2 PO; +LASI40TA9 PO; +METO1TAB32 PO; +MONT10TA4 PO
[2020-05-17 14:11] LABS: HEMATOCRIT 34.9 % (42.0-52.0); HEMOGLOBIN 11.8 g/dl (13.5-17.5); MEAN CORPUSCULAR HEMOGLOBIN 33.3 pg (27.0-33.0); MEAN CORPUSCULAR HGB CONC 33.8 g/dl (32.0-36.5); MEAN CORPUSCULAR VOLUME 98.6 fl (80.0-96.0); RED BLOOD COUNT 3.54 10^6/uL (4.30-6.10); WHITE BLOOD COUNT 3.8 10^3/uL (4.0-10.0)
[2020-05-17 14:18] LABS: PLATELET COUNT, AUTOMATED 83 10^3/uL (150-450)
[2020-05-17 14:20] LABS: INR 1.34; PROTHROMBIN TIME 16.9 SECONDS (12.5-14.3)
[2020-05-17 14:39] LABS: ALBUMIN 2.2 GM/DL (3.2-5.2); ALT/SGPT 36 U/L (12-78); BILIRUBIN,TOTAL 2.2 MG/DL (0.2-1.0); BLOOD UREA NITROGEN 15 MG/DL (7-18); CALCIUM LEVEL 8.1 MG/DL (8.8-10.2); CARBON DIOXIDE LEVEL 27 MEQ/L (21-32); CHLORIDE LEVEL 109 MEQ/L (98-107); CREATININE FOR GFR 1.03 MG/DL (0.70-1.30); GLOMERULAR FILTRATION RATE > 60.0 (>49); GLUCOSE, FASTING 115 MG/DL (70-100); SODIUM LEVEL 140 MEQ/L (136-145); TOTAL PROTEIN 6.8 GM/DL (6.4-8.2)
[2020-05-17 14:46] LABS: ERYTHROCYTE SEDIMENTATION RATE 18 mm/hr (0-20)
--- NOTE | 2020-05-18 09:41 | ECGEPIP ---
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
--- NOTE | 2020-05-22 13:27 | REP ---
CHEST X-RAY: 2-VIEWS HISTORY: Osteoarthritis left knee. COMPARISON: Chest x-ray 03/09/2020. FINDINGS: The lungs are well-inflated and clear. The pleural angles are sharp. Heart size is normal. There are mild degenerative changes in the thoracic spine. There is minimal tortuosity in the thoracic aorta. Pulmonary vasculature is not increased. IMPRESSION: No active disease. MTDD
== END ==
LOC: M LAB 13:07
PROVIDERS: ATTEND Orthopaedic Surgery
DX: Z01.818 Encounter for other preprocedural examination (principal); M17.12 Unilateral primary osteoarthritis, left knee

== ENCOUNTER 2020-07-14 08:25 | Inpatient (IN) | payer MEDICAID, MEDICARE, OTHER, SELFPAY ==
[~2020-07-14] VITALS: Ht 180.3 cm; Wt 130.8 kg
[2020-07-14 09:21] LABS: BASO % 0.6 % (0.0-1.0); EOS # 0.1 10^3/uL (0.0-0.5); EOS % 2.9 % (0.0-3.0); HEMATOCRIT 32.9 % (42.0-52.0); LYMPH # 0.8 10^3/uL (1.5-5.0); LYMPH % 15.9 % (24.0-44.0); MEAN CORPUSCULAR HGB CONC 33.4 g/dl (32.0-36.5); MEAN CORPUSCULAR VOLUME 98.8 fl (80.0-96.0); MONO # 0.6 10^3/uL (0.0-0.8); MONO % 12.2 % (0.0-5.0); NEUTROPHILS # 3.3 10^3/uL (1.5-8.5); NEUTROPHILS % 68.2 % (36.0-66.0); RED BLOOD COUNT 3.33 10^6/uL (4.30-6.10); WHITE BLOOD COUNT 4.8 10^3/uL (4.0-10.0)
[2020-07-14 09:23] LABS: PLATELET COUNT, AUTOMATED 91 10^3/uL (150-450)
[2020-07-14 09:27] LABS: INR 1.41; PROTHROMBIN TIME 17.6 SECONDS (12.5-14.3)
[2020-07-14] MEDS ORDERED: dexameTHASONE 20MG/5ML VIAL (J1100 PER 1MG) IV ONE (09:30)
[2020-07-14] MEDS ORDERED: IPRATROPIUM 0.5MG/ALBUTEROL 2.5MG INH SOL UD 3ML (DUONEB) NEB PRN (09:30)
--- NOTE | 2020-07-14 09:42 | REP ---
INDICATION: abdominal pain COMPARISON: 05/17/2020 TECHNIQUE: Portable AP view of the chest FINDINGS: The mediastinum and cardiac silhouette are stable and within normal limits for portable technique. The lung sr are clear without acute consolidation, effusion, or pneumothorax. Skeletal structures are intact. IMPRESSION: No acute cardiopulmonary process appreciated. <Electronically signed by Jose Qureshi > 07/14/20 [id number]
[2020-07-14 09:46] LABS: ALBUMIN 2.2 GM/DL (3.2-5.2); ALT/SGPT 35 U/L (12-78); AMYLASE 43 U/L (25-115); BILIRUBIN,DIRECT 1.9 MG/DL (0.0-0.2); CPK CREATINE PHOSPHOKINASE 462 U/L (39-308); LIPASE 159 U/L (73-393); MB/CK RELATIVE INDEX 0.43 (< OR =4); TOTAL PROTEIN 6.7 GM/DL (6.4-8.2); TROPONIN I < 0.02 NG/ML (< 0.10)
[2020-07-14] MEDS ORDERED: ISOVUE-370 76% 100ML VIAL As Ordered ONE (09:46)
[2020-07-14] MEDS ORDERED: NS 500 ML IV ONE (10:00)
--- NOTE | 2020-07-14 10:37 | REP ---
INDICATION: abd pain and distention, cirrhosis with hx ascites. COMPARISON: 03/09/2020 TECHNIQUE: Axial contrast-enhanced images from the lung bases to the pubic symphysis using 100 cc Isovue 370 intravenous contrast material. Coronal and sagittal reformations obtained. This CT examination was performed using the following dose reduction techniques: Automated exposure control, adjustment of mA and/or kv according to the patient's size, and the use of iterative reconstruction technique. FINDINGS: Marked severe ascites is again noted throughout the abdomen and pelvis relatively similar to prior examination. The liver is shrunken and cirrhotic in appearance without focal hepatic lesion identified. Recanalized patent umbilical vein and portosystemic shunting is again noted. Spleen, pancreas, gallbladder, bilateral adrenal glands and kidneys are essentially normal/stable. The enteric system demonstrates colonic diverticulosis without obstruction or obvious acute inflammatory process. Pelvis demonstrates normal bladder and age-appropriate prostate/seminal vesicles. No obvious adenopathy. Abdominal aorta without aneurysm or dissection. Musculoskeletal structures demonstrate age-related degenerative changes. Lung bases demonstrate emphysematous changes and trace right pleural effusion. IMPRESSION: 1. Marked severe ascites similar to prior examination with evidence for chronic cirrhosis as described above. 2. Diverticulosis without acute diverticulitis. 3. No further obvious acute abdominopelvic pathology appreciated. <Electronically signed by Jose Qureshi > 07/14/20 [id number]
[2020-07-14] MEDS ORDERED: SPIR-10 PO (11:47)
[2020-07-14] MEDS ORDERED: ALBUTEROL SULFATE 2.5 MG/0.5 ML INH NEB SOLN NEB PRN (12:30)
[2020-07-14] MEDS ORDERED: ACETAMINOPHEN TAB 650MG DOSE (2X325MG) PO PRN (12:30)
[2020-07-14] MEDS ORDERED: CONS10SO3 PO (12:44)
[2020-07-14] MEDS ORDERED: VENTAER INH (12:45)
[2020-07-14] MEDS: cefTRIAXone SOD 1 GM in D5W MINI-BAG PLUS 50 ML IV SCH (12:57)
[2020-07-14 13:25] VITALS: BP 131/92
[2020-07-14] MEDS: SPIRONOLACTONE 50 MG TAB PO SCH (15:55)
[2020-07-14] MEDS: TAMSULOSIN 0.4 MG CAP PO SCH (15:55)
[2020-07-14] MEDS: DICLOFENAC EPOLAMINE 1.3 % PATCH TOP SCH ×2 (15:55→22:27)
[2020-07-14] MEDS: FUROSEMIDE 40MG/4ML VIAL (J1940) IV SCH ×2 (15:57→22:27)
--- NOTE | 2020-07-14 16:25 | HPEPDOC ---
General Date of Admission Jul 14, 2020 at 11:33 Date of Service: Jul 14, 2020 Chief Complaint The patient is a 60-year-old male admitted with a reason for visit of Decompensation Of Cirrhosis Of Liver. Source: Patient History of Present Illness 60 year old male with PMH of decompensated alcoholic cirrhosis presented to the ED with increasing distention of the abdomen over the past 3 weeks worst during the last week with increasing pain described as a tense pressure causing some difficulty in breathing. He describes it about 3/10 in intensity. He also reported increased swelling of both of his legs. He complained of pain in his right knee, dull aching in nature and rated it at about 6/10 in intensity with no radiation. He also reported some blood in his stool . He does have loose stools 2 or 3 times a day. Rectal exam in the ED showed brown stool and was heme positive. He was found to have massive ascites. He was admitted for decompensated cirrhosis of liver. Home Medications Scheduled Fluticasone Propionate (Flovent Hfa) 44 Mcg/Act Aer.w.adap, 1 PUFF INH BID, (Reported) Lactulose (Constulose) 10 Gm/15 Ml Solution, 30 ML PO DAILY, (Reported) Losartan Potassium (Losartan Potassium) 100 Mg Tablet, 100 MG PO DAILY, (Reported) Metoprolol Succinate (Metoprolol Succinate) 25 Mg Tab.er.24h, 25 MG PO DAILY, (Reported) Montelukast Sodium (Montelukast Sodium) 10 Mg Tablet, 10 MG PO DAILY, (Reported) Omeprazole (Omeprazole) 40 Mg Capsule.dr, 40 MG PO DAILY, (Reported) Spironolactone (Spironolactone) 25 Mg Tablet, 25 MG PO DAILY, (Reported) Tamsulosin Hcl (Tamsulosin HCl) 0.4 Mg Capsule, 0.4 MG PO DAILY, (Reported) Scheduled PRN Albuterol Sulfate (Ventolin Hfa) 18 Gm Hfa.aer.ad, 2 PUFFS INH QID PRN for SOB/WHEEZING, (Reported) Allergies Coded Allergies: POLLEN (Verified Allergy, Unknown, 05/22/20) Past Medical History Medical History Alcoholic cirrhosis with ascites and thrombocytopenia Morbid obesity Asthma Hypertension Arthritis. Surgical History bilateral inguinal hernia surgery right knee arthroscopy Family History Significant Family History: Asthma (brother and sister), Heart disease (father) Social History * Smoker: former Smoker Alcohol: sober (says last drink was before february) Drugs: marijuana A-FIB/CHADSVASC A-FIB History Current/History of A-Fib/PAF?: No Review of Systems Constitutional: Denies: Chills, Fever, Night Sweats Eyes: Denies: Pain, Vision change ENT: Denies: Head Aches, Ear Pain, Dysphagia Skin: Denies: Rash, Lesions, Breakdown Pulmonary: Reports: Dyspnea; Denies: Cough, Pleuritic Chest Pain Cardiovascular: Reports: Edema; Denies: Chest Pain, Palpitations, Orthopnea, Paroxysmal Noc. Dyspnea, Lt Headedness Gastrointestinal: Reports: Abdominal Pain, Other Symptoms (distension); Denies: Nausea, Vomiting Genitourinary: Denies: Dysuria, Frequency, Incontinence, Retention Hematologic: Denies: Bruising, Bleeding Excessively Musculoskeletal: Reports: Joint Pain (right knee pain) Neurological: Denies: Weakness, Numbness, Change in speech, Confusion Physical Examination General Exam: Positive: Alert, Cooperative, No Acute Distress Eye Exam: Positive: PERRLA, Conjunctiva & lids normal, EOMI; Negative: Sclera icteric ENT Exam: Positive: Atraumatic, Mucous membr. moist/pink, Pharynx Normal Neck Exam: Positive: Supple; Negative: JVD, thyromegaly Chest Exam: Positive: Normal air movement, Wheezing (few wheezes on deep expiration) Heart Exam: Positive: Rate Normal, Regular Rhythm, Normal S1, Normal S2; Negative: Murmurs, Rubs Telemetry: Positive: No significant arrhythmia Abdomen Exam: Positive: Normal bowel sounds, Soft, Other (distended, ascites); Negative: Tenderness Extremity Exam: Positive: Edema; Negative: Clubbing, Cyanosis Skin Exam: Positive: Nl turgor and temperature; Negative: Breakdown, Lesion Neuro Exam: Positive: Normal Gait, Normal Speech, Strength at 5/5 X4 ext, Normal Tone, Other (No flap) Vital Signs Vital Signs Date Time Temp Pulse Resp B/P (MAP) Pulse Ox O2 Delivery O2 Flow Rate FiO2 07/14/20 13:25 98.6 102 20 131/92 (105) 97 Room Air Laboratory Data Labs 24H Laboratory Tests 2 07/14/20 09:01: Immature Granulocyte % (Auto) 0.2, Neutrophils (%) (Auto) 68.2H, Lymphocytes (%) (Auto) 15.9L, Monocytes (%) (Auto) 12.2H, Eosinophils (%) (Auto) 2.9, Basophils (%) (Auto) 0.6, Neutrophils # (Auto) 3.3, Lymphocytes # (Auto) 0.8L, Monocytes # (Auto) 0.6, Eosinophils # (Auto) 0.1, Basophils # (Auto) 0.0, Nucleated Red Blood Cells % (auto) 0.0, Immature Platelet Fraction 2.7, Prothrombin Time 17.6H, Prothromb Time International Ratio 1.41, Lactic Acid Level 2.4*H, Total Bilirubin 4.0H, Direct Bilirubin 1.9H, Aspartate Amino Transf (AST/SGOT) 81H, Alanine Aminotransferase (ALT/SGPT) 35, Alkaline Phosphatase 230H, Ammonia 64H, Total Creatine Kinase 462H, Creatine Kinase MB 2.0, Creatine Kinase MB Relative Index 0.43, Troponin I < 0.02, Total Protein 6.7, Albumin 2.2L, Albumin/Globulin Ratio 0.5, Amylase Level 43, Lipase 159 07/14/20 10:51: Urine Color ALEJANDRO, Urine Appearance HAZY, Urine pH 6.0, Urine Specific [place] 1.033, Urine Protein NEGATIVE, Urine Glucose (UA) NEGATIVE, Urine Ketones NEGATIVE, Urine Blood 1+H, Urine Nitrite POSITIVEH, Urine Bilirubin NEGATIVE, Urine Urobilinogen 2.0H, Urine Leukocyte Esterase 1+H, Urine WBC (Auto) 60H, [place] RBC (Auto) 1, Urine Hyaline Casts (Auto) 0, Urine Bacteria (Auto) 1+H, Urine Squamous Epithelial Cells 0, Urine Mucus (Auto) SMALL, Urine Sperm (Auto) 07/14/20 11:56: Coronavirus (COVID-19)(PCR) NEGATIVE 07/14/20 13:32: Lactic Acid Followup at 4 Hours 1.9 CBC/BMP Laboratory Tests 07/14/20 09:01 Microbiology Microbiology 07/14/20 Urine Culture, Received Pending 07/14/20 Blood Culture, Received Pending Assessment/Plan 60 year old male with PMH of decompensated alcoholic cirrhosis presented to the ED with increasing distention of the abdomen over the past 3 weeks worst during the last week with increasing pain described as a tense pressure causing some difficulty in breathing. He describes it about 3/10 in intensity. He also reported increased swelling of both of his legs. He complained of pain in his right knee, dull aching in nature and rated it at about 6/10 in intensity with no radiation. He also reported some blood in his stool . He does have loose stools 2 or 3 times a day. Rectal exam in the ED showed brown stool and was heme positive. He was found to have massive ascites. He was admitted for decompensated cirrhosis of liver. Decompensated cirrhosis of liver with ascites and thrombocytopenia Patient admits to not watching how much he drinks and also says he does not weigh himself. ? GIB as Heme was positive in the ED. HB stable. IV lasix, spironolactone, ceftriaxone I/O, daily weight. Continue lactulose Paracentesis tomorrow. Asthma fluticasone albuterol prn BPH flomax Arthritis of knee tylenol and diclofenac patch. Plan / VTE VTE Prophylaxis Ordered?: Yes RUBINA MARTIN MD Jul 14, 2020 16:25
[2020-07-14] MEDS: FLUTICASONE HFA 220 MCG 12 GM INHALER (FLOVENT) INH SCH (18:10)
--- NOTE | 2020-07-14 19:01 | ECGEPIP ---
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
[2020-07-14 19:55] VITALS: BP 139/96
[2020-07-14 21:56] LABS: FERRITIN 210 NG/ML (26-388); IRON (FE) 131 UG/DL (65-175); PERCENT SATURATION 74.9 % (19.7-50.0); TOTAL IRON BINDING CAPACITY 175 UG/DL (250-450)
[2020-07-14 22:00] VITALS: BP 139/94
[2020-07-15] MEDS: FUROSEMIDE 40MG/4ML VIAL (J1940) IV SCH ×2 (05:25→17:48)
[2020-07-15 06:00] VITALS: BP 140/93
[2020-07-15 06:32] LABS: HEMATOCRIT 32.1 % (42.0-52.0); HEMOGLOBIN 10.6 g/dl (13.5-17.5); LYMPH # 0.5 10^3/uL (1.5-5.0); MONO # 0.4 10^3/uL (0.0-0.8); MONO % 6.3 % (0.0-5.0); NEUTROPHILS # 5.6 10^3/uL (1.5-8.5); NEUTROPHILS % 85.9 % (36.0-66.0); RED BLOOD COUNT 3.31 10^6/uL (4.30-6.10); WHITE BLOOD COUNT 6.5 10^3/uL (4.0-10.0)
[2020-07-15 06:34] LABS: PLATELET COUNT, AUTOMATED 83 10^3/uL (150-450)
[2020-07-15 06:53] LABS: ALBUMIN 2.2 GM/DL (3.2-5.2); ALT/SGPT 40 U/L (12-78); BLOOD UREA NITROGEN 13 MG/DL (7-18); CALCIUM LEVEL 8.6 MG/DL (8.8-10.2); CARBON DIOXIDE LEVEL 28 MEQ/L (21-32); CHLORIDE LEVEL 99 MEQ/L (98-107); CREATININE FOR GFR 1.29 MG/DL (0.70-1.30); GLOMERULAR FILTRATION RATE > 60.0 (>49); GLUCOSE, FASTING 122 MG/DL (70-100); POTASSIUM SERUM 3.7 MEQ/L (3.5-5.1); SODIUM LEVEL 134 MEQ/L (136-145); TOTAL PROTEIN 7.2 GM/DL (6.4-8.2)
[2020-07-15] MEDS: FLUTICASONE HFA 220 MCG 12 GM INHALER (FLOVENT) INH SCH ×2 (07:23→21:00)
[2020-07-15] MEDS: DICLOFENAC EPOLAMINE 1.3 % PATCH TOP SCH ×2 (09:00→20:51)
[2020-07-15] MEDS: SPIRONOLACTONE 50 MG TAB PO SCH (10:06)
[2020-07-15] MEDS: TAMSULOSIN 0.4 MG CAP PO SCH (10:06)
[2020-07-15 10:31] LABS: FOLATE 10.5 NG/ML (>5.4); VITAMIN B12 LEVEL > 2000 PG/ML (247-911)
--- NOTE | 2020-07-15 12:02 | IPNPDOC ---
Subjective Date Seen The patient was seen on 07/15/20. Subjective Chief Complaint/HPI Reports that his legs are less swollen today. He had 2 episodes of bright red blood per rectum overnight. No abdominal pain just feels tight. Planned for paracentesis today Objective Physical Examination General Exam: Positive: Alert, Cooperative, No Acute Distress Eye Exam: Positive: PERRLA, Conjunctiva & lids normal, EOMI; Negative: Sclera icteric ENT Exam: Positive: Atraumatic, Mucous membr. moist/pink, Pharynx Normal Neck Exam: Positive: Supple; Negative: JVD, thyromegaly Chest Exam: Positive: Normal air movement, Wheezing (few wheezes on deep expiration) Heart Exam: Positive: Rate Normal, Regular Rhythm, Normal S1, Normal S2; Negative: Murmurs, Rubs Telemetry: Positive: No significant arrhythmia Abdomen Exam: Positive: Normal bowel sounds, Soft, Other (distended, ascites); Negative: Tenderness Extremity Exam: Positive: Edema; Negative: Clubbing, Cyanosis Skin Exam: Positive: Nl turgor and temperature; Negative: Breakdown, Lesion Neuro Exam: Positive: Normal Gait, Normal Speech, Strength at 5/5 X4 ext, Normal Tone, Other (No flap) Assessment /Plan Assessment 60 year old male with PMH of decompensated alcoholic cirrhosis presented to the ED with increasing distention of the abdomen over the past 3 weeks worst during the last week with increasing pain described as a tense pressure causing some difficulty in breathing. He describes it about 3/10 in intensity. He also reported increased swelling of both of his legs. He complained of pain in his right knee, dull aching in nature and rated it at about 6/10 in intensity with no radiation. He also reported some blood in his stool . He does have loose stools 2 or 3 times a day. Rectal exam in the ED showed brown stool and was heme positive. He was found to have massive ascites. He was admitted for decompensated cirrhosis of liver. Decompensated cirrhosis of liver with ascites and thrombocytopenia Patient admits to not watching how much he drinks and also says he does not weigh himself. IV lasix, spironolactone, ceftriaxone I/O, daily weight. Continue lactulose Paracentesis GI consulted GIB bleeding per rectum bright red Hemorrhoids/ rectal varices GI eval. Asthma fluticasone albuterol prn BPH flomax Arthritis of knee tylenol and diclofenac patch. Plan/VTE VTE Prophylaxis Ordered?: Yes VS, I&O, 24H, Fishbone Vital Signs/I&O Vital Signs Date Time Temp Pulse Resp B/P (MAP) Pulse Ox O2 Delivery O2 Flow Rate FiO2 07/15/20 06:00 97.6 105 20 140/93 (109) 96 07/14/20 13:25 Room Air I&O- Last 24 Hours up to 6 AM0 07/15/20 07:00 Intake Total 2360 ml Output Total 4090 ml Balance -1730 ml Laboratory Data 24H LABS Laboratory Tests 2 07/14/20 11:56: Coronavirus (COVID-19)(PCR) NEGATIVE 07/14/20 13:32: Lactic Acid Followup at 4 Hours 1.9 07/14/20 21:15: Iron Level 131, Total Iron Binding Capacity 175L, Transferrin % Saturation 74.9H, Ferritin 210, Vitamin B12 Level > 2000H, Folate 10.5 07/15/20 06:11: Immature Granulocyte % (Auto) 0.8, Neutrophils (%) (Auto) 85.9H, Lymphocytes (%) (Auto) 7.0L, Monocytes (%) (Auto) 6.3H, Eosinophils (%) (Auto) 0.0, Basophils (%) (Auto) 0.0, Neutrophils # (Auto) 5.6, Lymphocytes # (Auto) 0.5L, Monocytes # (Auto) 0.4, Eosinophils # (Auto) 0.0, Basophils # (Auto) 0.0, Nucleated Red Blood Cells % (auto) 0.0, Anion Gap 7L, Glomerular Filtration Rate > 60.0, Calcium Level 8.6L, Total Bilirubin 3.0H, Aspartate Amino Transf (AST/SGOT) 85H, Alanine Aminotransferase (ALT/SGPT) 40, Alkaline Phosphatase 197H, Total Protein 7.2, Albumin 2.2L, Albumin/Globulin Ratio 0.4 CBC/BMP Laboratory Tests 07/14/20 21:15 07/15/20 01:39 07/15/20 06:11 Microbiology Microbiology 07/14/20 Urine Culture, Received Pending 07/14/20 Blood Culture - Preliminary, Resulted No growth after 24 hours . All specim... RUBINA MARTIN MD Jul 15, 2020 12:01
[2020-07-15] MEDS: cefTRIAXone SOD 1 GM in D5W MINI-BAG PLUS 50 ML IV SCH (12:22)
[2020-07-15 14:00] VITALS: BP 141/72
[2020-07-15] MEDS ORDERED: POLYETHYLENE GLYCOL (MIRALAX) 238GM BOTTLE PO ONE (17:00)
[2020-07-15] MEDS ORDERED: MOM 30ML SUSPENSION UDC PO ONE (17:00)
[2020-07-15] MEDS: LACTULOSE 20 GM/30 ML SYRUP UD PO SCH (20:49)
[2020-07-15] MEDS: RAMELTEON 8 MG TAB (ROZEREM) PO SCH (20:51)
[2020-07-15 22:00] VITALS: BP_SYST 118; BP_DIAS 79; BP_DIAS 9
[2020-07-16] MEDS ORDERED: POLYETHYLENE GLYCOL (MIRALAX) 238GM BOTTLE PO ONE (05:00)
[2020-07-16 06:00] VITALS: BP 119/73
[2020-07-16 06:18] LABS: EOS % 0.1 % (0.0-3.0); HEMATOCRIT 30.7 % (42.0-52.0); HEMOGLOBIN 10.1 g/dl (13.5-17.5); LYMPH # 0.7 10^3/uL (1.5-5.0); LYMPH % 10.7 % (24.0-44.0); MEAN CORPUSCULAR HEMOGLOBIN 32.6 pg (27.0-33.0); MEAN CORPUSCULAR HGB CONC 32.9 g/dl (32.0-36.5); MONO # 0.7 10^3/uL (0.0-0.8); MONO % 10.3 % (0.0-5.0); NEUTROPHILS # 5.4 10^3/uL (1.5-8.5); NEUTROPHILS % 78.3 % (36.0-66.0); WHITE BLOOD COUNT 6.9 10^3/uL (4.0-10.0)
[2020-07-16 06:21] LABS: PLATELET COUNT, AUTOMATED 77 10^3/uL (150-450)
[2020-07-16 06:40] LABS: ALT/SGPT 40 U/L (12-78); BILIRUBIN,TOTAL 2.4 MG/DL (0.2-1.0); BLOOD UREA NITROGEN 15 MG/DL (7-18); CALCIUM LEVEL 8.3 MG/DL (8.8-10.2); CARBON DIOXIDE LEVEL 32 MEQ/L (21-32); CHLORIDE LEVEL 100 MEQ/L (98-107); CREATININE FOR GFR 1.18 MG/DL (0.70-1.30); GLOMERULAR FILTRATION RATE > 60.0 (>49); GLUCOSE, FASTING 96 MG/DL (70-100); POTASSIUM SERUM 3.4 MEQ/L (3.5-5.1); SODIUM LEVEL 136 MEQ/L (136-145); TOTAL PROTEIN 6.6 GM/DL (6.4-8.2)
[2020-07-16] MEDS: FLUTICASONE HFA 220 MCG 12 GM INHALER (FLOVENT) INH SCH ×2 (08:16→19:46)
[2020-07-16] MEDS: TAMSULOSIN 0.4 MG CAP PO SCH (09:47)
[2020-07-16] MEDS: LACTULOSE 20 GM/30 ML SYRUP UD PO SCH ×2 (09:47→21:15)
[2020-07-16] MEDS: SPIRONOLACTONE 50 MG TAB PO SCH (09:47)
[2020-07-16] MEDS: DICLOFENAC EPOLAMINE 1.3 % PATCH TOP SCH ×2 (09:48→21:15)
[2020-07-16] MEDS: FUROSEMIDE 40MG/4ML VIAL (J1940) IV SCH ×2 (09:48→17:12)
[2020-07-16] MEDS ORDERED: SODIUM BICARBONATE 8.4% INJ 50MEQ 50 ML VIAL As Ordered ONE (10:56)
[2020-07-16] MEDS: cefTRIAXone SOD 1 GM in D5W MINI-BAG PLUS 50 ML IV SCH (12:51)
[2020-07-16] MEDS ORDERED: fentaNYL 100 MCG/2 ML INJECTION (J3010) As Ordered ONE (14:32)
[2020-07-16] MEDS ORDERED: LIDOCAINE 2% 100MG/5ML SDV (FOR ANES.) As Ordered ONE (14:32)
[2020-07-16] MEDS ORDERED: propofoL 200 MG/20 ML VIAL As Ordered ONE (14:32)
--- NOTE | 2020-07-16 14:53 | ROOR ---
Patient Name: Rory Okeefe Procedure Date: 07/16/2020 1:23 PM Date of : 1960 Age: 60 Gender: Male Note Status: Finalized Procedure: Upper GI endoscopy Indications: Alcohol Cirrhosis rule out esophageal varices Providers: Osmani HANCOCK MD Referring MD: 2. Inpatient 2. Inpatient Requesting Provider: Medicines: Monitored Anesthesia Care Complications: No immediate complications. Procedure: Pre-Anesthesia Assessment: - The heart rate, respiratory rate, oxygen saturations, blood pressure, adequacy of pulmonary ventilation, and response to care were monitored throughout the procedure. The Endoscope was introduced through the mouth, and advanced to the second part of duodenum. The upper GI endoscopy was accomplished without difficulty. The patient tolerated the procedure well. Findings: Grade I varices were found in the distal esophagus. They were small in size. (Varices are small today, primary prevention/eradication not indicated today) The exam of the esophagus was otherwise normal. Mild portal hypertensive gastropathy was found in the gastric fundus and in the gastric body. The exam of the stomach was otherwise normal. The examined duodenum was normal. Impression: - Small non-bleeding (Grade I) esophageal varices, otherwise normal esophagus.(Varices are small today, primary prevention/eradication not indicated today) - Mild portal hypertensive gastropathy otherwise normal stomach. No gastric varices - Normal examined duodenum. - No specimens collected. Recommendation: - Observe patient's clinical course. Procedure Code(s): --- Professional --- 43637, Esophagogastroduodenoscopy, flexible, transoral; diagnostic, including collection of specimen(s) by brushing or washing, when performed (separate procedure) Diagnosis Code(s): --- Professional --- K74.60, Unspecified cirrhosis of liver K31.89, Other diseases of stomach and duodenum K76.6, Portal hypertension I85.10, Secondary esophageal varices without bleeding CPT copyright 2019 [employer]. All rights reserved. The codes documented in this report are preliminary and upon enamel machine operator review may be revised to meet current compliance requirements. Osmani Hancock MD Osmani HANCOCK MD 07/16/2020 2:52:34 PM Electronically signed by Osmani HANCOCK MD Number of Addenda: 0 Note Initiated On: 07/16/2020 1:23 PM Estimated Blood Loss: Estimated blood loss: none.
--- NOTE | 2020-07-16 14:59 | ROOR ---
Patient Name: Rory Okeefe Procedure Date: 07/16/2020 1:24 PM Date of : 1960 Age: 60 Gender: Male Note Status: Finalized Procedure: Colonoscopy Indications: Hematochezia Providers: Osmani HANCOCK MD Referring MD: 2. Inpatient 2. Inpatient Requesting Provider: Medicines: Monitored Anesthesia Care Complications: No immediate complications. Procedure: Pre-Anesthesia Assessment: - The heart rate, respiratory rate, oxygen saturations, blood pressure, adequacy of pulmonary ventilation, and response to care were monitored throughout the procedure. The Colonoscope was introduced through the anus and advanced to 10 cm into the ileum. The colonoscopy was performed without difficulty. The patient tolerated the procedure well. The quality of the bowel preparation was adequate. Findings: The perianal and digital rectal examinations were normal. Internal hemorrhoids were found during retroflexion. The hemorrhoids were moderate. The entire examined colon appeared normal on direct and retroflexion views. The terminal ileum appeared normal. Impression: - Moderate internal hemorrhoids. - The entire examined colon is otherwise normal on direct and retroflexion views. - The examined portion of the ileum was normal. - No specimens collected. Recommendation: - Return to my office in 1 month. - Return to primary care physician as previously scheduled. Procedure Code(s): --- Professional --- 49835, Colonoscopy, flexible; diagnostic, including collection of specimen(s) by brushing or washing, when performed (separate procedure) Diagnosis Code(s): --- Professional --- K92.1, Melena (includes Hematochezia) K64.8, Other hemorrhoids CPT copyright 2019 [employer]. All rights reserved. The codes documented in this report are preliminary and upon professional fee coder review may be revised to meet current compliance requirements. Osmani Hancock MD Osmani HANCOCK MD 07/16/2020 2:59:14 PM Electronically signed by Osmani HANCOCK MD Number of Addenda: 0 Note Initiated On: 07/16/2020 1:24 PM Estimated Blood Loss: Estimated blood loss: none.
[2020-07-16] MEDS ORDERED: ONDANSETRON 4MG/2ML VIAL IV PRN (16:00)
[2020-07-16] MEDS ORDERED: LR 1,000 ML IV SCH (16:00)
--- NOTE | 2020-07-16 16:40 | IPNPDOC ---
Text Note Date of Service The patient was seen on 07/16/20. NOTE Subjective: No any acute events overnight. He denies fever, chills, nausea, chest pain, palpitations, diarrhea or dysuria Objective: GENERAL APPEARANCE: NAD HEENT: no scleral icterus, no JVD, EOMI CARDIOVASCULAR: S1S2 LUNGS: CTA ABDOMEN: Moderately distended, bowel sounds present MUSCULOSKELETAL: no cyanosis, no swelling INTEGUMENT: no generalized palor NEUROLOGICAL: cranial nerve function from 2-12 intact intact, follows commands, speech not dysarthric Assessment and plan 60 year old male with PMH of decompensated alcoholic cirrhosis presented to the ED with increasing distention of the abdomen over the past 3 weeks worst during the last week with increasing pain described as a tense pressure causing some difficulty in breathing. He also reported increased swelling of both of his legs. Rectal exam in the ED showed brown stool and was heme positive. He was found to have massive ascites. He was admitted for decompensated cirrhosis of liver. Decompensated cirrhosis of liver with ascites and thrombocytopenia Patient noncompliant to treatment. Patient continues drinking beer. Not candidate for liver transplant IV lasix, spironolactone. Therapy with ceftriaxone started empirically due to high risk of SBP, also patient was found to have pyuria with Escherichia coli I/O, daily weight. Continue lactulose Paracentesis was done today, await peritoneal fluid report GIB bleeding per rectum bright red CT showed diverticulosis Dr. Padilla did colonoscopy. Await report Asthma fluticasone albuterol prn BPH flomax Arthritis of knee tylenol and diclofenac patch. VS,Fishbone, I+O VS, Fishbone, I+O Laboratory Tests 07/16/20 05:52 Vital Signs Date Time Temp Pulse Resp B/P (MAP) Pulse Ox O2 Delivery O2 Flow Rate FiO2 07/16/20 15:05 80 18 138/80 (99) 94 Room Air 07/16/20 14:46 97.2 I&O- Last 24 Hours up to 6 AM 07/16/20 06:00 Intake Total 900 ml Output Total 3100 ml Balance -2200 ml MILTON GUARDADO DO Jul 16, 2020 16:40
[2020-07-16 18:00] VITALS: BP 137/70
--- NOTE | 2020-07-16 18:28 | REP ---
INDICATION: therapeutic The patient has a history of severe ascites and a CT scan dated 07/14/2020. COMPARISON: None. TECHNIQUE: The procedure was performed by Betzaida Starkey RUST, under the direct supervision of Dr. Chung The risks and benefits of the procedure were explained to the patient and an informed consent was obtained both verbally and written. Directly prior to the start of the procedure a formal time-out was completed in the procedure room. The largest pocket of fluid was localized in the right flank using ultrasound guidance. The skin was prepped and draped in a sterile fashion. Eleven ML of buffered lidocaine was used as a local anesthetic. An 8-Wolof multi side-hole catheter was inserted using trocar technique. FINDINGS: 6400 mL of yellow ascites was removed and discarded. The patient tolerated the procedure well and there were no immediate complications. After the appropriate amount of monitored convalescence, the patient was discharged from the department. IMPRESSION: Ultrasound-guided paracentesis with removal of 6400 mL of yellow ascites. <Electronically signed by Betzaida Starkey > 07/16/20 1632 <Electronically signed by Eliezer Chung > 07/16/20 1115
[2020-07-16] MEDS: RAMELTEON 8 MG TAB (ROZEREM) PO SCH (21:15)
[2020-07-16 22:00] VITALS: BP 99/61
[2020-07-17 06:00] VITALS: BP 106/67
[2020-07-17 06:39] LABS: EOS # 0.1 10^3/uL (0.0-0.5); EOS % 1.4 % (0.0-3.0); HEMATOCRIT 30.1 % (42.0-52.0); LYMPH # 0.7 10^3/uL (1.5-5.0); LYMPH % 15.8 % (24.0-44.0); MEAN CORPUSCULAR HEMOGLOBIN 32.7 pg (27.0-33.0); MEAN CORPUSCULAR HGB CONC 33.2 g/dl (32.0-36.5); MEAN CORPUSCULAR VOLUME 98.4 fl (80.0-96.0); MONO # 0.6 10^3/uL (0.0-0.8); MONO % 13.9 % (0.0-5.0); NEUTROPHILS # 2.9 10^3/uL (1.5-8.5); NEUTROPHILS % 68.2 % (36.0-66.0); RED BLOOD COUNT 3.06 10^6/uL (4.30-6.10); WHITE BLOOD COUNT 4.2 10^3/uL (4.0-10.0)
[2020-07-17 06:41] LABS: PLATELET COUNT, AUTOMATED 72 10^3/uL (150-450)
[2020-07-17 07:06] LABS: ALBUMIN 1.9 GM/DL (3.2-5.2); ALT/SGPT 44 U/L (12-78); BILIRUBIN,TOTAL 2.2 MG/DL (0.2-1.0); BLOOD UREA NITROGEN 15 MG/DL (7-18); CALCIUM LEVEL 7.9 MG/DL (8.8-10.2); CARBON DIOXIDE LEVEL 36 MEQ/L (21-32); CHLORIDE LEVEL 95 MEQ/L (98-107); CREATININE FOR GFR 1.04 MG/DL (0.70-1.30); GLOMERULAR FILTRATION RATE > 60.0 (>49); GLUCOSE, FASTING 88 MG/DL (70-100); POTASSIUM SERUM 3.1 MEQ/L (3.5-5.1); SODIUM LEVEL 137 MEQ/L (136-145); TOTAL PROTEIN 6.1 GM/DL (6.4-8.2)
[2020-07-17] MEDS: FLUTICASONE HFA 220 MCG 12 GM INHALER (FLOVENT) INH SCH (07:28)
[2020-07-17] MEDS ORDERED: POTASSIUM CHLORIDE 10 MEQ SR TABLET PO ONE (08:45)
[2020-07-17] MEDS: SPIRONOLACTONE 50 MG TAB PO SCH (09:31)
[2020-07-17] MEDS: TAMSULOSIN 0.4 MG CAP PO SCH (09:31)
[2020-07-17] MEDS: LACTULOSE 20 GM/30 ML SYRUP UD PO SCH (09:31)
[2020-07-17] MEDS: FUROSEMIDE 40MG/4ML VIAL (J1940) IV SCH (09:32)
[2020-07-17] MEDS: DICLOFENAC EPOLAMINE 1.3 % PATCH TOP SCH (09:32)
[2020-07-17] MEDS ORDERED: FUROSEMIDE 40 MG TAB PO SCH (10:30)
[2020-07-17] MEDS ORDERED: ALDA50TA2 PO (10:53)
[2020-07-17] MEDS ORDERED: FURO40TA2 PO (10:53)
[2020-07-17] MEDS ORDERED: LOSA25TA14 PO (10:53)
[2020-07-17 12:14] VITALS: BP 110/58
[2020-07-17 14:00] VITALS: BP 123/63
[2020-07-17 14:27] VITALS: BP 118/70
--- NOTE | 2020-07-17 16:48 | DS.PDOC ---
Discharge Summary General Date of Admission Jul 14, 2020 at 11:33 Date of Discharge 07/17/20 Discharge Summary PROCEDURES PERFORMED DURING STAY: [None]. ADMITTING DIAGNOSES: GIB Decompensated cirrhosis of liver Asthma BPH Arthritis of knee DISCHARGE DIAGNOSES: GIB Decompensated cirrhosis of liver Asthma BPH Arthritis of knee COMPLICATIONS/CHIEF COMPLAINT: Decompensation Of Cirrhosis Of Liver. HISTORY OF PRESENT ILLNESS: 60 year old male with PMH of decompensated alcoholic cirrhosis presented to the ED with increasing distention of the abdomen over the past 3 weeks worst during the last week with increasing pain described as a tense pressure causing some difficulty in breathing. He also reported increased swelling of both of his legs. Rectal exam in the ED showed brown stool and was heme positive. He was found to have massive ascites. He was admitted for decompensated cirrhosis of liver. HOSPITAL COURSE: During hospital stay following issues addressed Decompensated cirrhosis of liver with ascites and thrombocytopenia Patient noncompliant to treatment. Patient continues drinking beer. Not candidate for liver transplant IV lasix, spironolactone. Therapy with ceftriaxone started empirically due to high risk of SBP, also patient was found to have pyuria with Escherichia coli I/O, daily weight. Continue lactulose Paracentesis was done today, await peritoneal fluid report GIB bleeding per rectum bright red CT showed diverticulosis Dr. Padilla did colonoscopy. See below Asthma fluticasone albuterol prn BPH flomax Arthritis of knee tylenol and diclofenac patch. DISCHARGE MEDICATIONS: Please see below. ALLERGIES: Please see below. PHYSICAL EXAMINATION ON DISCHARGE: VITAL SIGNS: Please see below. GENERAL APPEARANCE: NAD HEENT: no scleral icterus, no JVD, EOMI CARDIOVASCULAR: S1S2 LUNGS: CTA ABDOMEN: Moderately distended, bowel sounds present MUSCULOSKELETAL: no cyanosis, no swelling INTEGUMENT: no generalized palor NEUROLOGICAL: cranial nerve function from 2-12 intact intact, follows commands, speech not dysarthric LABORATORY DATA: Please see below. IMAGING: Procedure: Upper GI endoscopy Indications: Alcohol Cirrhosis rule out esophageal varices Providers: Jolie AHNCOCK MD Referring MD: 2. Inpatient 2. Inpatient Requesting Provider: Medicines: Monitored Anesthesia Care Complications: No immediate complications. Procedure: Pre-Anesthesia Assessment: - The heart rate, respiratory rate, oxygen saturations, blood pressure, adequacy of pulmonary ventilation, and response to care were monitored throughout the procedure. The Endoscope was introduced through the mouth, and advanced to the second part of duodenum. The upper GI endoscopy was accomplished without difficulty. The patient tolerated the procedure well. Findings: Grade I varices were found in the distal esophagus. They were small in size. (Varices are small today, primary prevention/eradication not indicated today) The exam of the esophagus was otherwise normal. Mild portal hypertensive gastropathy was found in the gastric fundus and in the gastric body. The exam of the stomach was otherwise normal. The examined duodenum was normal. Impression: - Small non-bleeding (Grade I) esophageal varices, otherwise normal esophagus.(Varices are small today, primary prevention/eradication not indicated today) - Mild portal hypertensive gastropathy otherwise normal stomach. No gastric varices - Normal examined duodenum. - No specimens collected. Recommendation: - Observe patient's clinical course. Procedure Code(s): --- Professional --- 24193, Esophagogastroduodenoscopy, flexible, transoral; diagnostic, including collection of specimen(s) by brushing or washing, when performed (separate procedure) Diagnosis Code(s): --- Professional --- K74.60, Unspecified cirrhosis of liver K31.89, Other diseases of stomach and duodenum K76.6, Portal hypertension I85.10, Secondary esophageal varices without bleeding CPT copyright 2019 [employer]. All rights reserved. The codes documented in this report are preliminary and upon head loader review may be revised to meet current compliance requirements. Jolie Hancock MD Jolie HANCOCK MD 07/16/2020 2:52:34 PM Electronically signed by Jolie HANCOCK MD Number of Addenda: 0 Note Initiated On: 07/16/2020 1:23 PM Estimated Blood Loss: Estimated blood loss: none. DD: JOLIE HANCOCK MD 07/16/20 1323 DT: PU 07/16/20 1323 DS: ANA 07/16/20 1452 07/16/20 1452 DS2: Patient Name: Rory Okeefe Procedure Date: 07/16/2020 1:24 PM Date of : 1960 Age: 60 Gender: Male Note Status: Finalized Procedure: Colonoscopy Indications: Hematochezia Providers: Jolie HANCOCK MD Referring MD: 2. Inpatient 2. Inpatient Requesting Provider: Medicines: Monitored Anesthesia Care Complications: No immediate complications. Procedure: Pre-Anesthesia Assessment: - The heart rate, respiratory rate, oxygen saturations, blood pressure, adequacy of pulmonary ventilation, and response to care were monitored throughout the procedure. The Colonoscope was introduced through the anus and advanced to 10 cm into the ileum. The colonoscopy was performed without difficulty. The patient tolerated the procedure well. The quality of the bowel preparation was adequate. Findings: The perianal and digital rectal examinations were normal. Internal hemorrhoids were found during retroflexion. The hemorrhoids were moderate. The entire examined colon appeared normal on direct and retroflexion views. The terminal ileum appeared normal. Impression: - Moderate internal hemorrhoids. - The entire examined colon is otherwise normal on direct and retroflexion views. - The examined portion of the ileum was normal. - No specimens collected. Recommendation: - Return to my office in 1 month. - Return to primary care physician as previously scheduled. Procedure Code(s): --- Professional --- 72007, Colonoscopy, flexible; diagnostic, including collection of specimen(s) by brushing or washing, when performed (separate procedure) Diagnosis Code(s): --- Professional --- K92.1, Melena (includes Hematochezia) K64.8, Other hemorrhoids CPT copyright 2019 [employer]. All rights reserved. The codes documented in this report are preliminary and upon head loader review may be revised to meet current compliance requirements. Jolie Hancock MD Jolie HANCOCK MD 07/16/2020 2:59:14 PM Electronically signed by Jolie HANCOCK MD Number of Addenda: 0 Note Initiated On: 07/16/2020 1:24 PM Estimated Blood Loss: Estimated blood loss: none. DD: JOLIE HANCOCK MD 07/16/20 1324 DT: PU 07/16/20 1324 DS: REIDA 07/16/20 1459 07/16/20 1459 DS2: PROGNOSIS: fair ACTIVITY: [As tolerated]. DIET: regular DISPOSITION: 01 Home, Self-Care. DISCHARGE INSTRUCTIONS: Follow-up with foam machine operator in 2 weeks, follow-up with PCP in 1 weeks Stopped drinking alcohol Fluid restriction to 2 DISCHARGE CONDITION: [Stable]. TIME SPENT ON DISCHARGE: Greater than 40 minutes. Vital Signs/I&Os Vital Signs Date Time Temp Pulse Resp B/P (MAP) Pulse Ox O2 Delivery O2 Flow Rate FiO2 07/17/20 14:27 98.4 82 19 118/70 95 Room Air I&O- Last 24 Hours up to 6 AM 07/17/20 06:00 Intake Total 1440 ml Output Total 2460 ml Balance -1020 ml Laboratory Data Labs 24H Laboratory Tests 2 07/17/20 05:57: Immature Granulocyte % (Auto) 0.7, Neutrophils (%) (Auto) 68.2H, Lymphocytes (%) (Auto) 15.8L, Monocytes (%) (Auto) 13.9H, Eosinophils (%) (Auto) 1.4, Basophils (%) (Auto) 0.0, Neutrophils # (Auto) 2.9, Lymphocytes # (Auto) 0.7L, Monocytes # (Auto) 0.6, Eosinophils # (Auto) 0.1, Basophils # (Auto) 0.0, Nucleated Red Blood Cells % (auto) 0.0, Immature Platelet Fraction 4.0, Anion Gap 6L, Glomerular Filtration Rate > 60.0, Calcium Level 7.9L, Total Bilirubin 2.2H, Aspartate Amino Transf (AST/SGOT) 87H, Alanine Aminotransferase (ALT/SGPT) 44, Alkaline Phosphatase 178H, Total Protein 6.1L, Albumin 1.9L, Albumin/Globulin Ratio 0.5 CBC/BMP Laboratory Tests 07/17/20 05:57 Microbiology Microbiology 07/14/20 Urine Culture - Final, Complete Escherichia Coli 07/14/20 Blood Culture - Preliminary, Resulted No Growth after 72 hours. All specime... Discharge Medications Scheduled Fluticasone Propionate (Flovent Hfa) 44 Mcg/Act Aer.w.adap, 1 PUFF INH BID, (Reported) Furosemide (Furosemide) 40 Mg Tablet, 20 MG PO BID@09, Lactulose (Constulose) 10 Gm/15 Ml Solution, 30 ML PO DAILY, (Reported) Metoprolol Succinate (Metoprolol Succinate) 25 Mg Tab.er.24h, 25 MG PO DAILY, (Reported) Montelukast Sodium (Montelukast Sodium) 10 Mg Tablet, 10 MG PO DAILY, (Reported) Omeprazole (Omeprazole) 40 Mg Capsule.dr, 40 MG PO DAILY, (Reported) Spironolactone (Aldactone) 50 Mg Tablet, 100 MG PO DAILY Tamsulosin Hcl (Tamsulosin HCl) 0.4 Mg Capsule, 0.4 MG PO DAILY, (Reported) Scheduled PRN Albuterol Sulfate (Ventolin Hfa) 18 Gm Hfa.aer.ad, 2 PUFFS INH QID PRN for SOB/ WHEEZING, (Reported) Allergies Coded Allergies: POLLEN (Verified Allergy, Unknown, 05/22/20) MILTON GUARDADO DO Jul 17, 2020 16:48
== END 2020-07-17 15:42 | disposition home or self-care (01) | DRG 433 ==
LOC: M ED 08:25 → M ED INP 11:33 → ENRESERV 12:15 → M MSPAV 13:26
PROVIDERS: ADMIT Internal Medicine Nephrology; ATTEND Internal Medicine
PROC: 0DJD8ZZ Inspection of Lower Intestinal Tract, Via Natural or Artificial Opening Endoscopic (ICD-10-PCS; 2020-07-16)
PROC: 0W9G3ZZ Drainage of Peritoneal Cavity, Percutaneous Approach (ICD-10-PCS; 2020-07-16)
PROC: 0DJ08ZZ Inspection of Upper Intestinal Tract, Via Natural or Artificial Opening Endoscopic (ICD-10-PCS; principal; 2020-07-16 11:30)
DX: K70.31 Alcoholic cirrhosis of liver with ascites (principal); Z68.41 Body mass index [BMI] 40.0-44.9, adult; K92.2 Gastrointestinal hemorrhage, unspecified; K76.6 Portal hypertension; I85.10 Secondary esophageal varices without bleeding; K92.1 Melena; E66.01 Morbid (severe) obesity due to excess calories; I10 Essential (primary) hypertension; D69.59 Other secondary thrombocytopenia; N40.0 Benign prostatic hyperplasia without lower urinary tract symptoms; J45.909 Unspecified asthma, uncomplicated; K31.89 Other diseases of stomach and duodenum; K64.8 Other hemorrhoids; Z79.899 Other long term (current) drug therapy

== ENCOUNTER 2020-07-24 13:23 | Inpatient (IN) | payer MEDICARE, OTHER ==
[~2020-07-24] VITALS: Ht 180.3 cm; Wt 119.4 kg
[~2020-07-24 13:23] MED LIST changes: +ALDA50TA2 PO; +FURO40TA2 PO; +LOSA25TA14 PO; -MONT10TA4 PO; +MONT5TAB2 PO; +SPIR-10 PO; +VENTAER INH
[2020-07-24 14:15] LABS: BASO % 0.5 % (0.0-1.0); EOS # 0.1 10^3/uL (0.0-0.5); HEMATOCRIT 32.9 % (42.0-52.0); HEMOGLOBIN 10.6 g/dl (13.5-17.5); LYMPH # 0.6 10^3/uL (1.5-5.0); LYMPH % 16.1 % (24.0-44.0); MEAN CORPUSCULAR HEMOGLOBIN 32.6 pg (27.0-33.0); MEAN CORPUSCULAR HGB CONC 32.2 g/dl (32.0-36.5); MEAN CORPUSCULAR VOLUME 101.2 fl (80.0-96.0); MONO # 0.5 10^3/uL (0.0-0.8); MONO % 13.3 % (0.0-5.0); NEUTROPHILS # 2.7 10^3/uL (1.5-8.5); NEUTROPHILS % 67.8 % (36.0-66.0); RED BLOOD COUNT 3.25 10^6/uL (4.30-6.10); WHITE BLOOD COUNT 3.9 10^3/uL (4.0-10.0)
[2020-07-24 14:19] LABS: PLATELET COUNT, AUTOMATED 72 10^3/uL (150-450)
--- NOTE | 2020-07-24 14:19 | REP ---
INDICATION: DYSPNEA/COUGH COMPARISON: 07/14/2020 TECHNIQUE: PA and lateral. FINDINGS: Moderate right pleural effusion and right passive atelectasis. Left hemithorax is clear. No pneumothorax. Visualized portions of the cardiac silhouette are normal. Skeletal structures are intact. IMPRESSION: Moderate right pleural effusion and right passive atelectasis. <Electronically signed by Jose Qureshi > 07/24/20 [id number]
[2020-07-24 14:51] LABS: ALBUMIN 2.1 GM/DL (3.2-5.2); ALT/SGPT 40 U/L (12-78); BILIRUBIN,DIRECT 1.5 MG/DL (0.0-0.2); BILIRUBIN,TOTAL 3.5 MG/DL (0.2-1.0); BLOOD UREA NITROGEN 13 MG/DL (7-18); CALCIUM LEVEL 7.9 MG/DL (8.8-10.2); CARBON DIOXIDE LEVEL 32 MEQ/L (21-32); CHLORIDE LEVEL 98 MEQ/L (98-107); CK-MB VALUE MASS 1.9 NG/ML (<3.6); CPK CREATINE PHOSPHOKINASE 124 U/L (39-308); CREATININE FOR GFR 1.14 MG/DL (0.70-1.30); GLOMERULAR FILTRATION RATE > 60.0 (>49); GLUCOSE, FASTING 142 MG/DL (70-100); MB/CK RELATIVE INDEX 1.53 (< OR =4); SODIUM LEVEL 135 MEQ/L (136-145); TOTAL PROTEIN 6.4 GM/DL (6.4-8.2); TROPONIN I 0.03 NG/ML (< 0.10)
[2020-07-24] MEDS ORDERED: LOSA25TA14 PO (14:57)
[2020-07-24] MEDS ORDERED: MULT-40 PO (14:57)
[2020-07-24] MEDS ORDERED: FURO20TA2 PO (14:57)
[2020-07-24] MEDS ORDERED: SPIR100T3 PO (14:57)
[2020-07-24] MEDS ORDERED: ALBUTEROL 90 MCG/ACT 8GM HFA INHALER INH PRN (16:15)
[2020-07-24] MEDS: FUROSEMIDE 20 MG TAB PO SCH (17:00)
--- NOTE | 2020-07-24 17:10 | REP ---
INDICATION: hx ascites, edema abdomen. COMPARISON: None. TECHNIQUE: The procedure was performed under the direct supervision of . The risks and benefits of the procedure were explained to the patient and informed consent was obtained. The largest pocket of fluid was localized in the RIGHT FLANK using ultrasound guidance. The skin was prepped and draped in a sterile fashion. 1% lidocaine was used as a local anesthetic. An 8-Urdu multi side-hole catheter was inserted using trocar technique. 5500 CC OF YELLOW FLUID WAS WITHDRAWN AND DISCARDED. The patient tolerated the procedure well and there were no immediate complications. After the appropriate amount of monitored convalescence, the patient was discharged from the department. FINDINGS: NONE IMPRESSION: ULTRASOUND-GUIDED PARACENTESIS YIELDING 5500 CC OF YELLOW FLUID. <Electronically signed by Papito Daniels > 07/24/20 1700 <Electronically signed by Sunny Stoner > 07/24/20 8735
--- NOTE | 2020-07-24 18:03 | HPEPDOC ---
General Date of Admission Jul 24, 2020 Date of Service: Jul 24, 2020 Chief Complaint The patient is a 60-year-old male admitted with a reason for visit of SOB. Source: Patient History of Present Illness Mr. Okeefe is a 60-year-old male with history of alcoholic cirrhosis with ascites who is here for shortness of breath secondary to enlarging ascites and right pleural effusion. He was recently admitted on July 14 and discharged on July 17 for decompensated cirrhosis. He was started on diuretics, and since it was the day prior to , he was not able to pecan picker his new medications. He did pick it up the following day. He tells me that he takes his diuretics daily. Since it was the holidays, he ate more canned soup. The past few days has been having progressive dyspnea. Otherwise, today he was at his PCPs office for hospital follow-up. His PCP told to come to the ED. While in the ED, he was grossly fluid overloaded. He is pitting edema in his abdomen. Imaging of his chest demonstrated right pleural effusion. His chest x-ray on July 14 did not have any pleural effusion at all. While in the ED, they ordered paracentesis and requested admission. Home Medications Scheduled Fluticasone Propionate (Flovent Hfa) 44 Mcg/Act Aer.w.adap, 1 PUFF INH BID, (Reported) Furosemide (Furosemide) 20 Mg Tablet, 20 MG PO BID, (Reported) Lactulose (Constulose) 10 Gm/15 Ml Solution, 30 ML PO DAILY, (Reported) Losartan Potassium (Losartan Potassium) 25 Mg Tablet, 25 MG PO DAILY, (Reported) Metoprolol Succinate (Metoprolol Succinate) 25 Mg Tab.er.24h, 25 MG PO DAILY, (Reported) Montelukast Sodium (Montelukast Sodium) 10 Mg Tablet, 10 MG PO DAILY, (Reported) Multivitamin (Multivitamins) 1 Each Tablet, 1 TAB PO DAILY, (Reported) Omeprazole (Omeprazole) 40 Mg Capsule.dr, 40 MG PO DAILY, (Reported) Spironolactone (Spironolactone) 100 Mg Tablet, 100 MG PO DAILY, (Reported) Tamsulosin Hcl (Tamsulosin HCl) 0.4 Mg Capsule, 0.4 MG PO DAILY, (Reported) Scheduled PRN Albuterol Sulfate (Ventolin Hfa) 18 Gm Hfa.aer.ad, 2 PUFFS INH QID PRN for SOB/WHEEZING, (Reported) Allergies Coded Allergies: POLLEN (Verified Allergy, Unknown, 05/22/20) Past Medical History Medical History 1. Alcoholic cirrhosis with ascites and thrombocytopenia 2. Morbid obesity 3. Asthma 4. Hypertension 5. Arthritis. Surgical History 1. bilateral inguinal hernia surgery 2. right knee arthroscopy Family History Father: History of heart disease Brother and sister: Asthma Social History * Smoker: former Smoker Alcohol: Denies (does not remember last drink. On chart, since last drink was before February) Drugs: denies (patient denies, but on chart reports marijuana use) A-FIB/CHADSVASC A-FIB History Current/History of A-Fib/PAF?: No Review of Systems Constitutional: Denies: Chills, Fever Eyes: Denies: Vision change ENT: Denies: Dysphagia, Sore Throat Skin: Denies: Rash Pulmonary: Reports: Dyspnea; Denies: Cough Cardiovascular: Denies: Chest Pain Gastrointestinal: Denies: Nausea, Abdominal Pain Genitourinary: Denies: Dysuria Hematologic: Denies: Bruising Musculoskeletal: Reports: Other Symptoms (increased abdominal swelling) Physical Examination General Exam: Positive: Alert, Cooperative Eye Exam: Positive: EOMI, Sclera icteric ENT Exam: Positive: Atraumatic Neck Exam: Positive: Supple Chest Exam: Positive: Other (did not hear breath sounds in the right lower lobe) Heart Exam: Positive: Rate Normal, Regular Rhythm Abdomen Exam: Positive: Normal bowel sounds, Soft, Other (distended); Negative: Tenderness Extremity Exam: Positive: Edema Neuro Exam: Positive: Cranial Nerves 3-12 NL Psych Exam: Positive: Mental status NL, Mood NL Vital Signs Vital Signs Date Time Temp Pulse Resp B/P (MAP) Pulse Ox O2 Delivery O2 Flow Rate FiO2 07/24/20 16:44 88 20 97 Room Air 07/24/20 16:00 98.1 07/24/20 14:30 115/66 (82) 2.0 Laboratory Data Labs 24H Laboratory Tests 2 07/24/20 14:01: Immature Granulocyte % (Auto) 0.3, Neutrophils (%) (Auto) 67.8H, Lymphocytes (%) (Auto) 16.1L, Monocytes (%) (Auto) 13.3H, Eosinophils (%) (Auto) 2.0, Basophils (%) (Auto) 0.5, Neutrophils # (Auto) 2.7, Lymphocytes # (Auto) 0.6L, Monocytes # (Auto) 0.5, Eosinophils # (Auto) 0.1, Basophils # (Auto) 0.0, Nucleated Red Blood Cells % (auto) 0.0, Immature Platelet Fraction 3.2, Blood Gas Bicarbonate Standard 31.6, Venous Blood pH 7.450H, Venous Blood Partial Pressure CO2 48.9, Venous Blood Partial Pressure O2 50.8H, Venous Blood Total Carbon Dioxide 34.7H, Venous Blood HCO3 33.2H, Venous Blood Oxygen Saturation 85.0H, Venous Blood Base Excess 8.0H, Anion Gap 5L, Glomerular Filtration Rate > 60.0, Calcium Level 7.9L, Total Bilirubin 3.5H, Direct Bilirubin 1.5H, Aspartate Amino Transf (AST/SGOT) 67H, Alanine Aminotransferase (ALT/SGPT) 40, Alkaline Phosphatase 194H, Total Creatine Kinase 124, Creatine Kinase MB 1.9, Creatine Kinase MB Relative Index 1.53, Troponin I 0.03, Total Protein 6.4, Albumin 2.1L, Albumin/Globulin Ratio 0.5 07/24/20 14:40: Ammonia 62H 07/24/20 15:04: Coronavirus (COVID-19)(PCR) NEGATIVE CBC/BMP Laboratory Tests 07/24/20 14:01 Assessment/Plan Mr. Okeefe is a 60-year-old male with history of alcoholic cirrhosis with ascites who is here for shortness of breath secondary to enlarging ascites and right pleural effusion. He reports being compliant with his diuretics. He is noncompliant with his diet. He likes canned soups, and due to Thanksgiving he's had a lot of canned soup. We will start with paracentesis of his abdomen. We'll see if we can pursue a thoracentesis tomorrow. We will restart him on his diuretics. Plan / VTE VTE Prophylaxis Ordered?: Yes Plan Plan 1. Decompensated cirrhosis We will do a therapeutic paracentesis today 2 g sodium diet with 1500 mL fluid restriction Restart his diuretics Continue lactulose 2. Right pleural effusion We will do a diagnostic thoracentesis We will discuss with IR tomorrow Continue with diuretics 3. Asthma Stable Continue fluticasone, montelukast, and as needed albuterol 4. BPH Continue Flomax 5. DVT prophylaxis SCDs and teds ANIRUDH GAY DO Jul 24, 2020 18:03
[2020-07-24 21:25] VITALS: BP 142/77
[2020-07-24] MEDS ORDERED: POTASSIUM CHLORIDE 10 MEQ SR TABLET PO ONE (22:00)
[2020-07-24] MEDS: LACTULOSE 20 GM/30 ML SYRUP UD PO SCH (23:11)
[2020-07-24] MEDS: LIDOCAINE 5% (LIDODERM) PATCH TD SCH (23:12)
[2020-07-24] MEDS: FLUTICASONE HFA 44 MCG 10.6GM INHALER (FLOVENT) INH SCH (23:43)
[2020-07-25] MEDS ORDERED: POTASSIUM CHLORIDE 10 MEQ SR TABLET PO ONE (01:00)
[2020-07-25 06:00] VITALS: BP 112/71
[2020-07-25 06:28] LABS: HEMATOCRIT 30.8 % (42.0-52.0); MEAN CORPUSCULAR HEMOGLOBIN 32.5 pg (27.0-33.0); MEAN CORPUSCULAR HGB CONC 32.5 g/dl (32.0-36.5); RED BLOOD COUNT 3.08 10^6/uL (4.30-6.10); WHITE BLOOD COUNT 3.4 10^3/uL (4.0-10.0)
[2020-07-25 06:31] LABS: PLATELET COUNT, AUTOMATED 66 10^3/uL (150-450)
[2020-07-25 06:49] LABS: ALBUMIN 1.9 GM/DL (3.2-5.2); ALT/SGPT 37 U/L (12-78); BILIRUBIN,TOTAL 3.4 MG/DL (0.2-1.0); BLOOD UREA NITROGEN 12 MG/DL (7-18); CALCIUM LEVEL 7.9 MG/DL (8.8-10.2); CARBON DIOXIDE LEVEL 31 MEQ/L (21-32); CHLORIDE LEVEL 101 MEQ/L (98-107); CREATININE FOR GFR 0.96 MG/DL (0.70-1.30); GLOMERULAR FILTRATION RATE > 60.0 (>49); GLUCOSE, FASTING 76 MG/DL (70-100); POTASSIUM SERUM 3.6 MEQ/L (3.5-5.1); SODIUM LEVEL 137 MEQ/L (136-145); TOTAL PROTEIN 5.7 GM/DL (6.4-8.2)
[2020-07-25] MEDS: FLUTICASONE HFA 44 MCG 10.6GM INHALER (FLOVENT) INH SCH ×2 (07:28→19:36)
[2020-07-25] MEDS ORDERED: LIDOCAINE 5% (LIDODERM) PATCH TD SCH (09:00)
[2020-07-25] MEDS ORDERED: LACTULOSE 20 GM/30 ML SYRUP UD PO SCH (09:00)
[2020-07-25] MEDS: LACTULOSE 20 GM/30 ML SYRUP UD PO SCH (09:03)
[2020-07-25] MEDS: OMEPRAZOLE 20 MG CAP PO SCH (09:04)
[2020-07-25] MEDS: SPIRONOLACTONE 50 MG TAB PO SCH (09:04)
[2020-07-25] MEDS: MULTIVITAMINS/MINERALS THERAP 1 TAB PO SCH (09:04)
[2020-07-25] MEDS: MONTELUKAST 10 MG TAB PO SCH (09:04)
[2020-07-25] MEDS: FUROSEMIDE 20 MG TAB PO SCH ×2 (09:04→17:49)
[2020-07-25] MEDS: TAMSULOSIN 0.4 MG CAP PO SCH (09:04)
[2020-07-25] MEDS: LOSARTAN 25 MG TAB PO SCH (09:05)
[2020-07-25] MEDS: METOPROLOL SUCC *XL* 25MG TAB (TopROL *XL*) PO SCH (09:05)
[2020-07-25] MEDS: **NOTE PATIENT COMMENT** MISC XX SCH (09:05)
--- NOTE | 2020-07-25 12:04 | REP ---
INDICATION: POST RIGHT THORA, 2 VIEW. COMPARISON: Comparison chest x-ray July 24, 2020.. TECHNIQUE: PA and lateral views. FINDINGS: There is been interval decrease in the size of the right pleural effusion post Thora centesis. There is still some blunting of the right lateral and posterior pleural angles and some fissural fluid is seen. There is no evidence of pneumothorax or other complication. Left lung is clear. IMPRESSION: Decreased amount of right pleural fluid post thoracentesis. No complication identified. <Electronically signed by Sunny Stoner > 07/25/20 1200
[2020-07-25 12:31] LABS: PLEURAL FL COLOR YELLOW (COLORLESS); SOURCE, BODY FLUID PLEURAL
[2020-07-25 12:32] LABS: APPEARANCE, BODY FLUID CLOUDY (CLEAR)
[2020-07-25 12:51] LABS: LDH, BODY FLUID 83 U/L (NOT ESTABLISHED); SOURCE, BODY FLUID ALBUMIN PLEURAL; SOURCE, BODY FLUID LDH PLEURAL; SOURCE, BODY FLUID TOT PROTEIN PLEURAL; TOTAL PROTEIN, BODY FLUID 0.9 G/DL (NOT ESTABLISHED)
[2020-07-25 13:39] VITALS: BP 96/54
--- NOTE | 2020-07-25 16:16 | REP ---
INDICATION: Right pleural effusion. COMPARISON: None. TECHNIQUE: The procedure was performed under the direct supervision of Dr. Stoner. The risks and benefits of the procedure were explained to the patient and informed consent was obtained. The right pleural effusion was localized using ultrasound guidance. The skin was prepped and draped in a sterile fashion. 1% lidocaine was used as local anesthetic. An 8 Cypriot multi side hole catheter was inserted using trocar technique. 1100 cc of yellow fluid was withdrawn and sent to the lab for analysis. The patient tolerated the procedure well and there were no immediate complications. FINDINGS: None IMPRESSION: Ultrasound-guided right thoracentesis yielding 1100 cc of yellow fluid. <Electronically signed by Papito Daniels > 07/25/20 1446 <Electronically signed by Sunny Stoner > 07/25/20 1610
[2020-07-25] MEDS ORDERED: **NOTE PATIENT COMMENT** MISC XX SCH (21:00)
--- NOTE | 2020-07-25 21:20 | IPNPDOC ---
Subjective Date Seen The patient was seen on 07/25/20. Subjective Chief Complaint/HPI Mr. Okeefe is a 60-year-old male with history of alcoholic cirrhosis with ascites who is here for shortness of breath secondary to enlarging ascites and right pleural effusion. Yesterday, he went for a therapeutic paracentesis which he tolerated well. Denies any fever, chest pain, abdominal pain, or dysuria. Shortness of breath has improved, but still present. Today, requests that he have a diagnostic thoracentesis of the right lung. Objective Physical Examination General Exam: Positive: Alert, Cooperative Eye Exam: Positive: EOMI, Sclera icteric ENT Exam: Positive: Atraumatic Neck Exam: Positive: Supple Chest Exam: Positive: Other (did not hear breath sounds in the right lower lobe) Heart Exam: Positive: Rate Normal, Regular Rhythm Abdomen Exam: Positive: Normal bowel sounds, Soft, Other (distended); Negative: Tenderness Extremity Exam: Positive: Edema Neuro Exam: Positive: Cranial Nerves 3-12 NL Psych Exam: Positive: Mental status NL, Mood NL Assessment /Plan Assessment Mr. Okeefe is a 60-year-old male with history of alcoholic cirrhosis with ascites who is here for shortness of breath secondary to enlarging ascites and right pleural effusion. He reports being compliant with his diuretics. He is noncompliant with his diet. He likes canned soups, and due to Thanksgiving he's had a lot of canned soup. On 07/24/2020 he had a paracentesis. On 07/25/2020 he had a thoracentesis. Thoracentesis demonstrates transitive fluid which is most likely secondary to samson cirrhosis. Plan/VTE VTE Prophylaxis Ordered?: Yes Plan 1. Decompensated cirrhosis Paracentesis performed on 07/24/2020 2 g sodium diet with 1500 mL fluid restriction Continue diuretics Continue lactulose 2. Right pleural effusion Thoracentesis performed on 07/25/2020. Demonstrated transudative fluid Continue with diuretics 3. Asthma Stable Continue fluticasone, montelukast, and as needed albuterol 4. BPH Continue Flomax 5. DVT prophylaxis SCDs and teds VS, I&O, 24H, Fishbone Vital Signs/I&O Vital Signs Date Time Temp Pulse Resp B/P (MAP) Pulse Ox O2 Delivery O2 Flow Rate FiO2 07/25/20 13:39 99.0 71 18 96/54 (68) 91 Room Air 07/24/20 21:55 2.0 I&O- Last 24 Hours up to 6 AM 07/25/20 06:00 Intake Total 1105 ml Output Total 200 ml Balance 905 ml Laboratory Data 24H LABS Laboratory Tests 2 07/25/20 05:34: Nucleated Red Blood Cells % (auto) 0.0, Anion Gap 5L, Glomerular Filtration Rate > 60.0, Calcium Level 7.9L, Total Bilirubin 3.4H, Aspartate Amino Transf (AST/SGOT) 62H, Alanine Aminotransferase (ALT/SGPT) 37, Alkaline Phosphatase 180H, Total Protein 5.7L, Albumin 1.9L, Albumin/Globulin Ratio 0.5 07/25/20 11:35: Body Fluid WBC (Auto) 242H, Body Fluid RBC (Auto) < 2, Body Fluid Mononuclear Cells % Auto 83.5H, Fluid Polymorphonuclear Cell % Auto 16.5H, Body Fluid Protein Source PLEURAL, Body Fluid Total Protein 0.9, Body Fluid Albumin Source PLEURAL, Body Fluid Albumin 0.4, Body Fluid LDH Source PLEURAL, Body Fluid Lactate Dehydrogenase 83, Pleural Fluid Source PLEURAL, Pleural Fluid Color YELLOW, Pleural Fluid Appearance CLOUDY CBC/BMP Laboratory Tests 07/25/20 05:34 Microbiology Microbiology 07/25/20 Gram Stain - Final, Resulted 07/25/20 Anaerobic Culture, Resulted Pending 07/25/20 Body Fluid Culture, Received Pending ANIRUDH GAY DO Jul 25, 2020 21:20
[2020-07-25 22:00] VITALS: BP 97/52
[2020-07-25] MEDS: LIDOCAINE 5% (LIDODERM) PATCH TD SCH (22:23)
[2020-07-26 06:00] VITALS: BP 100/50
[2020-07-26 06:52] LABS: HEMATOCRIT 30.6 % (42.0-52.0); HEMOGLOBIN 10.3 g/dl (13.5-17.5); MEAN CORPUSCULAR HEMOGLOBIN 33.8 pg (27.0-33.0); MEAN CORPUSCULAR HGB CONC 33.7 g/dl (32.0-36.5); MEAN CORPUSCULAR VOLUME 100.3 fl (80.0-96.0); RED BLOOD COUNT 3.05 10^6/uL (4.30-6.10); WHITE BLOOD COUNT 4.2 10^3/uL (4.0-10.0)
[2020-07-26 06:54] LABS: PLATELET COUNT, AUTOMATED 67 10^3/uL (150-450)
[2020-07-26 07:21] LABS: ALBUMIN 1.8 GM/DL (3.2-5.2); ALT/SGPT 33 U/L (12-78); BILIRUBIN,TOTAL 2.3 MG/DL (0.2-1.0); BLOOD UREA NITROGEN 17 MG/DL (7-18); CALCIUM LEVEL 7.8 MG/DL (8.8-10.2); CARBON DIOXIDE LEVEL 31 MEQ/L (21-32); CHLORIDE LEVEL 101 MEQ/L (98-107); CREATININE FOR GFR 1.25 MG/DL (0.70-1.30); GLOMERULAR FILTRATION RATE > 60.0 (>49); GLUCOSE, FASTING 80 MG/DL (70-100); POTASSIUM SERUM 3.6 MEQ/L (3.5-5.1); SODIUM LEVEL 136 MEQ/L (136-145); TOTAL PROTEIN 5.5 GM/DL (6.4-8.2)
[2020-07-26] MEDS: FLUTICASONE HFA 44 MCG 10.6GM INHALER (FLOVENT) INH SCH (07:29)
--- NOTE | 2020-07-26 07:55 | ECGEPIP ---
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
[2020-07-26] MEDS: LACTULOSE 20 GM/30 ML SYRUP UD PO SCH (08:29)
[2020-07-26] MEDS: MONTELUKAST 10 MG TAB PO SCH (08:30)
[2020-07-26] MEDS: OMEPRAZOLE 20 MG CAP PO SCH (08:30)
[2020-07-26] MEDS: SPIRONOLACTONE 50 MG TAB PO SCH (08:30)
[2020-07-26] MEDS: FUROSEMIDE 20 MG TAB PO SCH (08:31)
[2020-07-26] MEDS: TAMSULOSIN 0.4 MG CAP PO SCH (08:31)
[2020-07-26] MEDS: MULTIVITAMINS/MINERALS THERAP 1 TAB PO SCH (08:31)
[2020-07-26 08:32] VITALS: BP 92/46
[2020-07-26] MEDS: METOPROLOL SUCC *XL* 25MG TAB (TopROL *XL*) PO SCH (08:32)
[2020-07-26] MEDS: LOSARTAN 25 MG TAB PO SCH (08:32)
[2020-07-26] MEDS: **NOTE PATIENT COMMENT** MISC XX SCH (09:00)
--- NOTE | 2020-07-26 20:15 | DS.PDOC ---
Discharge Summary General Date of Admission Jul 24, 2020 at 15:49 Date of Discharge Jul 26, 2020 Discharge Summary PROCEDURES PERFORMED DURING STAY: Paracentesis on 07/24/2020, right thoracentesis performed on 07/25/2020 ADMITTING DIAGNOSES: 1. Decompensated cirrhosis 2. Right pleural effusion 2. Asthma 4. BPH DISCHARGE DIAGNOSES: 1. Decompensated cirrhosis 2. Right pleural effusion 2. Asthma 4. BPH COMPLICATIONS/CHIEF COMPLAINT: Ascites/Pleural Effusion/Decompensation Of Cirrhos. HISTORY OF PRESENT ILLNESS: Mr. Okeefe is a 60-year-old male with history of alcoholic cirrhosis with ascites who is here for shortness of breath secondary to enlarging ascites and right pleural effusion. He was recently admitted on July 14 and discharged on July 17 for decompensated cirrhosis. He was started on diuretics, and since it was the day prior to , he was not able to waste picker his new medications. He did pick it up the following day. He tells me that he takes his diuretics daily. Since it was the holidays, he ate more canned soup. The past few days has been having progressive dyspnea. Otherwise, today he was at his PCPs office for hospital follow-up. His PCP told to come to the ED. While in the ED, he was grossly fluid overloaded. He is pitting edema in his abdomen. Imaging of his chest demonstrated right pleural effusion. His chest x-ray on July 14 did not have any pleural effusion at all. While in the ED, they ordered paracentesis and requested admission. HOSPITAL COURSE: Patient tolerated paracentesis well. The following day he had a right thoracentesis. Diagnostic thoracentesis demonstrated transudate of fluid. I discussed with him about avoiding foods with hidden salt such as canned soup. Today he felt well. Denied any lightheadedness or dizziness, fever or chills, chest pain, dyspnea, abdominal pain, or dysuria. He felt ready for home and was subsequently discharged. DISCHARGE MEDICATIONS: Please see below. ALLERGIES: Please see below. PHYSICAL EXAMINATION ON DISCHARGE: VITAL SIGNS: Please see below. GENERAL: Comfortable, in no apparent distress. HEENT: Head normocephalic/atraumatic, EOMI, sclera clear. NECK: Supple RESPIRATORY: Lungs clear to auscultation bilaterally, no rales, wheeze or rhonchi. CARDIOVASCULAR: Regular rate and rhythm. ABDOMEN: Soft, nontender, no guarding or rebound tenderness. Normal bowel sounds. MUSCLE SKELETAL: Muscle strength 5/5 in all extremities. NEUROLOGICAL: CN 312 grossly intact, no focal deficits noted. PSYCHOLOGICAL: Normal mood and affect LABORATORY DATA: Please see below. IMAGING: Chest x-ray Moderate right pleural effusion and right passive atelectasis. ACTIVITY: As tolerated. DIET: 2 g sodium diet and 2 L fluid restriction DISCHARGE PLAN: Home DISPOSITION: 01 Home, Self-Care. DISCHARGE INSTRUCTIONS: 1. Follow-up with your PCP within 5 days DISCHARGE CONDITION: Stable. Total time spent on discharge planning, discharge summary, medication reconciliation: 45 minutes Vital Signs/I&Os Vital Signs Date Time Temp Pulse Resp B/P (MAP) Pulse Ox O2 Delivery O2 Flow Rate FiO2 07/26/20 08:32 74 92/46 07/26/20 06:00 97.9 20 90 07/25/20 13:39 Room Air 07/24/20 21:55 2.0 I&O- Last 24 Hours up to 6 AM 07/26/20 06:00 Intake Total 1620 ml Output Total 600 ml Balance 1020 ml Laboratory Data Labs 24H Laboratory Tests 2 07/26/20 06:32: Nucleated Red Blood Cells % (auto) 0.0, Immature Platelet Fraction 3.2, Anion Gap 4L, Glomerular Filtration Rate > 60.0, Calcium Level 7.8L, Total Bilirubin 2.3H, Aspartate Amino Transf (AST/SGOT) 65H, Alanine Aminotransferase (ALT/SGPT) 33, Alkaline Phosphatase 190H, Lactate Dehydrogenase 262H, Total Protein 5.5L, Albumin 1.8L, Albumin/Globulin Ratio 0.5 CBC/BMP Laboratory Tests 07/26/20 06:32 Microbiology Microbiology 07/25/20 Gram Stain - Final, Resulted 07/25/20 Anaerobic Culture, Resulted Pending 07/25/20 Body Fluid Culture, Received Pending Discharge Medications Scheduled Fluticasone Propionate (Flovent Hfa) 44 Mcg/Act Aer.w.adap, 1 PUFF INH BID, (Reported) Furosemide (Furosemide) 20 Mg Tablet, 20 MG PO BID, (Reported) Lactulose (Constulose) 10 Gm/15 Ml Solution, 30 ML PO DAILY, (Reported) Losartan Potassium (Losartan Potassium) 25 Mg Tablet, 25 MG PO DAILY, (Reported) Metoprolol Succinate (Metoprolol Succinate) 25 Mg Tab.er.24h, 25 MG PO DAILY, (Reported) Montelukast Sodium (Montelukast Sodium) 10 Mg Tablet, 10 MG PO DAILY, (Reported) Multivitamin (Multivitamins) 1 Each Tablet, 1 TAB PO DAILY, (Reported) Omeprazole (Omeprazole) 40 Mg Capsule.dr, 40 MG PO DAILY, (Reported) Spironolactone (Spironolactone) 100 Mg Tablet, 100 MG PO DAILY, (Reported) Tamsulosin Hcl (Tamsulosin HCl) 0.4 Mg Capsule, 0.4 MG PO DAILY, (Reported) Scheduled PRN Albuterol Sulfate (Ventolin Hfa) 18 Gm Hfa.aer.ad, 2 PUFFS INH QID PRN for SOB/WHEEZING, (Reported) Allergies Coded Allergies: POLLEN (Verified Allergy, Unknown, 05/22/20) ANIRUDH GAY DO Jul 26, 2020 20:15
== END 2020-07-26 12:33 | disposition home or self-care (01) | DRG 433 ==
LOC: M ED 13:23 → M ED INP 15:49 → ENRESERV 20:10 → M MSPAV 21:23
PROVIDERS: ADMIT Internal Medicine; ATTEND Internal Medicine
PROC: 0W9G3ZZ Drainage of Peritoneal Cavity, Percutaneous Approach (ICD-10-PCS; principal; 2020-07-24 16:01)
PROC: 0W993ZX Drainage of Right Pleural Cavity, Percutaneous Approach, Diagnostic (ICD-10-PCS; 2020-07-25)
DX: K70.31 Alcoholic cirrhosis of liver with ascites (principal); J90 Pleural effusion, not elsewhere classified; J45.909 Unspecified asthma, uncomplicated; D69.59 Other secondary thrombocytopenia; N40.0 Benign prostatic hyperplasia without lower urinary tract symptoms; Z79.899 Other long term (current) drug therapy; I10 Essential (primary) hypertension; E66.01 Morbid (severe) obesity due to excess calories; M19.90 Unspecified osteoarthritis, unspecified site

== ENCOUNTER 2020-08-03 13:07 | Inpatient (IN) | payer MEDICARE ==
[2020-08-03] VITALS (7 sets, daily range): BP systolic 101–130; BP diastolic 53–77
[~2020-08-03] VITALS: Ht 180.3 cm; Wt 110.0 kg
[~2020-08-03 13:07] MED LIST changes: +MULT-40 PO; +SPIR100T3 PO
--- NOTE | 2020-08-03 14:09 | REP ---
INDICATION: DYSPNEA/COUGH. COMPARISON: 07/25/2020. TECHNIQUE: SINGLE PORTABLE AP VIEW OF THE CHEST WAS PERFORMED. FINDINGS: There to the prior study there is increased right pleural fluid and right basilar parenchymal opacity. Left lung remains clear. Heart and mediastinum are unchanged. IMPRESSION: Increased right pleural fluid and basilar parenchymal opacity compared to the prior study. <Electronically signed by Eliezer Chung > 08/03/20 0491
[2020-08-03 14:19] LABS: BASO % 0.9 % (0.0-1.0); EOS # 0.1 10^3/uL (0.0-0.5); EOS % 2.8 % (0.0-3.0); HEMOGLOBIN 11.2 g/dl (13.5-17.5); LYMPH # 0.5 10^3/uL (1.5-5.0); LYMPH % 16.4 % (24.0-44.0); MEAN CORPUSCULAR HEMOGLOBIN 33.2 pg (27.0-33.0); MEAN CORPUSCULAR VOLUME 103.9 fl (80.0-96.0); MONO # 0.4 10^3/uL (0.0-0.8); MONO % 12.3 % (0.0-5.0); NEUTROPHILS # 2.1 10^3/uL (1.5-8.5); NEUTROPHILS % 67.3 % (36.0-66.0); RED BLOOD COUNT 3.37 10^6/uL (4.30-6.10); WHITE BLOOD COUNT 3.2 10^3/uL (4.0-10.0)
[2020-08-03 14:20] LABS: PLATELET COUNT, AUTOMATED 69 10^3/uL (150-450)
[2020-08-03 14:29] LABS: INR 1.37; PROTHROMBIN TIME 17.2 SECONDS (12.5-14.3)
[2020-08-03 14:30] LABS: PARTIAL THROMBOPLASTIN TIME 33.8 SECONDS (24.2-38.5)
[2020-08-03 14:41] LABS: ALT/SGPT 41 U/L (12-78); BILIRUBIN,DIRECT 1.5 MG/DL (0.0-0.2); BILIRUBIN,TOTAL 2.9 MG/DL (0.2-1.0); BLOOD UREA NITROGEN 22 MG/DL (7-18); CALCIUM LEVEL 8.2 MG/DL (8.8-10.2); CARBON DIOXIDE LEVEL 29 MEQ/L (21-32); CHLORIDE LEVEL 104 MEQ/L (98-107); CK-MB VALUE MASS 2.4 NG/ML (<3.6); CPK CREATINE PHOSPHOKINASE 101 U/L (39-308); CREATININE FOR GFR 1.94 MG/DL (0.70-1.30); GLOMERULAR FILTRATION RATE 37.8 (>49); GLUCOSE, FASTING 131 MG/DL (70-100); MB/CK RELATIVE INDEX 2.38 (< OR =4); POTASSIUM SERUM 4.2 MEQ/L (3.5-5.1); SODIUM LEVEL 139 MEQ/L (136-145); TOTAL PROTEIN 5.9 GM/DL (6.4-8.2); TROPONIN I < 0.02 NG/ML (< 0.10)
[2020-08-03] MEDS ORDERED: NS 500 ML IV ONE (15:00)
[2020-08-03] MEDS ORDERED: NS 1,000 ML IV SCH (15:00)
--- NOTE | 2020-08-03 15:20 | REP ---
INDICATION: distention; assess ascites. COMPARISON: CT 07/14/2020. TECHNIQUE: Real-time sonographic evaluation of abdomen performed to evaluate ascites. FINDINGS: Moderate diffuse abdominal ascites is present. Fluid is greater on the right than on the left. IMPRESSION: Moderate abdominal ascites. <Electronically signed by Eliezer Chung > 08/03/20 1511
--- NOTE | 2020-08-03 16:57 | HPEPDOC ---
[facility] Medical History & Physical Date of Admission Aug 03, 2020 Date of Service: Aug 03, 2020 History and Physical CHIEF COMPLAINT: Shortness of breath, increasing abdominal distention, lower extremity edema for the past week HISTORY OF PRESENT ILLNESS: 60-year-old male with history of alcoholic liver cirrhosis with decompensated liver failure and recurrent ascites and pleural effusions requiring thoracentesis and paracentesis recently admitted and discharged twice prior to presentation again today. Patient has noted weight gain, increasing lower extremity edema, shortness of breath, increasing abdominal girth, difficulty ambulating due to dyspnea and exertion. . He denies any fever, chills, nausea, vomiting, hematemesis, bright red blood per rectum, melena, or black tarry stools last alcoholic drink was spring 2019. Patient was due to see Dr. Hancock in August 2020 for his first visit. . He admits to eating take-out food and canned prepared foods. . He follows a 2 L fluid restriction and no added salt at home. PAST MEDICAL HISTORY: LVEF65% Grade 1 LV diastolic dysfunction, Asthma, alcoholic liver cirrhosis with recurrent ascites, pleural effusions and chronic thrombocytopenia, morbid obesity, asthma, hypertension, osteoarthritis PAST SURGICAL HISTORY: Multiple thoracentesis and paracentesis due to decompensated liver cirrhosis, bilateral inguinal hernia surgery, right knee arthroscopy, left fourth finger tendon repair HOME MEDICATIONS: SEE BELOW ALLERGIES: SEE BELOW SOCIAL HISTORY: Admits to marijuana use prior cigar use. Prior alcohol abuse, last drink was spring 2019. Lives with his girlfriend at home. 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 Mother age 76. Unknown medical problems asthma in brother and sister ALLERGIES: Please see below. REVIEW OF SYSTEMS: 10 point review of systems negative aside from positive findings in HPI HOME MEDICATIONS: Please see below. PHYSICAL EXAMINATION: VITAL SIGNS: See below GENERAL APPEARANCE: Mild distress, 67 word conversational dyspnea. No pallor or icterus. Obese. Sitting at 90 HEENT: No nasal flaring or tracheal deviation. No JVD. Thick neck. Moist mucous membranes. Poor dentition distress, healthy-appearing CARDIOVASCULAR: S1, S2, regular rate rhythm. Nondisplaced point of maximal impulse LUNGS: Diminished breath sounds on the right with crackles at the base. Left is clear ABDOMEN: Obese, distended, positive fluid wave, positive bowel sounds 4 quadrants. No rebound or guarding. No CVA tenderness Dullness to percussion EXTREMITIES: 3+ pitting edema to the sacrum LABORATORY DATA: See below. IMAGING: See below MICROBIOLOGY: Please see below. ECHOCARDIOGRAM: DATE OF STUDY: 03/12/2020 REFERRING PHYSICIAN: Dr. Steffen Durham INDICATION: Dyspnea. HEIGHT: 178 cm. WEIGHT: 143 kg. 2-D MEASUREMENTS: Aortic root: 3.7 cm Left atrium: 3.2 cm Ventricular septum: 1.15 cm Posterior wall: 1.10 cm Left ventricle diastole: 5.3 cm Aortic annulus: 2.4 cm DOPPLER MEASUREMENTS: Trace aortic regurgitation No aortic stenosis Aortic valve velocity: 197 cm/sec LVOT velocity: 113 cm/sec LVOT VTI: 21.2 cm No mitral regurgitation No mitral stenosis Mitral E velocity: 66.9 cm/sec Mitral A velocity: 85.4 cm/sec Mitral deceleration time: 264 ms Trace tricuspid regurgitation No pulmonic regurgitation Pulmonary artery acceleration time: 95 ms MITRAL ANNULAR TISSUE DOPPLER: E prime septal: 6.7 cm/sec E prime lateral: 17.4 cm/sec DESCRIPTION: The rhythm was sinus, infrequent PVCs. Image quality was fair, however, subcostal windows were technically difficult. No pericardial effusion. This was 2-D, M-mode, color flow Doppler and pulse wave Doppler examination and included mitral annular tissue Doppler. CONCLUSIONS: 1. Normal left ventricle internal dimensions and wall thickness. Normal regional LV wall motion and wall thickening. Normal LV systolic function. LVEF 65% by visual estimate. Grade 1 LV diastolic dysfunction (impaired relaxation filling pattern). Normal left atrial size. 2. Moderate aortic valve sclerosis of a 3-cuspid aortic valve. Trace aortic regurgitation. No aortic stenosis. 3. Abbreviated pulmonary acceleration time suggestive of mild elevation of pulmonary artery systolic pressure. 4. Otherwise normal appearing echocardiogram Doppler findings. ASSESSMENT: 60-year-old male with history of alcoholic liver cirrhosis with decompensated liver failure and recurrent ascites and pleural effusions requiring thoracentesis and paracentesis recently admitted and discharged twice prior to presentation again today. Patient has noted weight gain, increasing lower extremity edema, shortness of breath, increasing abdominal girth, difficulty ambulating due to dyspnea and exertion. . He denies any fever, chills, nausea, vomiting, hematemesis, bright red blood per rectum, melena, or black tarry stools last alcoholic drink was spring 2019. Patient was due to see Dr. Hancock in August 2020 for his first visit. . He admits to eating take-out food and canned prepared foods. He follows a 2 L fluid restriction and no added salt at home. . Acute decompensated liver cirrhosis with recurrent ascites and pleural effusion Recurrent ascites due to portal hypertension Pleural effusion secondary to hypoalbuminemia and decompensated liver cirrhosis . Acute kidney injury secondary to decreased circulating blood volume Anasarca/ third spacing Hypoalbuminemia secondary to alcoholic liver cirrhosis . Chronic pancytopenia secondary to liver cirrhosis . Macrocytic anemia secondary to liver disease , Alcohol abuse . Tobacco abuse with cigar coagulopathy due to etoh liver disease Hyperbilirubinemia due to ETOH liver disease, decompensated PLAN: Patient is admitted as an inpatient for 2 main complaints. Due to low blood pressure. Patient received IV fluids in the emergency room, however, this will only cause worsening ascites and pleural effusion. Therefore, patient has been consented for albumin infusion. He will be transfused 2 units of albumin 25% and diuresis with Zaroxolyn and Bumex every 8 hourly, negative balance. Continue with 1.5 L fluid restriction, strict I's and O's and daily weights. Patient was counseled against salt and water intake and advised to check his weight daily. Thoracentesis and paracentesis. Apparently ordered. No signs of infection or encephalopathy to work due to antibiotics or chills. Patient's blood pressure is too low to start on propranolol. Monitor patient's creatinine while on diuretics. compression stockings. Vital Signs Vital Signs Date Time Temp Pulse Resp B/P (MAP) Pulse Ox O2 Delivery O2 Flow Rate FiO2 08/03/20 16:00 60 94 08/03/20 15:46 93/52 (66) 08/03/20 13:54 Nasal Cannula 2.0 08/03/20 13:30 25 08/03/20 13:07 97.5 Laboratory Data Labs 24H Laboratory Tests 2 08/03/20 13:22: Immature Granulocyte % (Auto) 0.3, Neutrophils (%) (Auto) 67.3H, Lymphocytes (%) (Auto) 16.4L, Monocytes (%) (Auto) 12.3H, Eosinophils (%) (Auto) 2.8, Basophils (%) (Auto) 0.9, Neutrophils # (Auto) 2.1, Lymphocytes # (Auto) 0.5L, Monocytes # (Auto) 0.4, Eosinophils # (Auto) 0.1, Basophils # (Auto) 0.0, Nucleated Red Blood Cells % (auto) 0.0, Immature Platelet Fraction 3.7, Anion Gap 6L, Gl omerular Filtration Rate 37.8L, Calcium Level 8.2L, Total Bilirubin 2.9H, Direct Bilirubin 1.5H, Aspartate Amino Transf (AST/SGOT) 62H, Alanine Aminotransferase (ALT/SGPT) 41, Alkaline Phosphatase 182H, Total Creatine Kinase 101, Creatine Kinase MB 2.4, Creatine Kinase MB Relative Index 2.38, Troponin I < 0.02, Total Protein 5.9L, Albumin 2.0L, Albumin/Globulin Ratio 0.5 08/03/20 13:28: Prothrombin Time 17.2H, Prothromb Time International Ratio 1.37, Activated Partial Thromboplast Time 33.8, XN-Jgn-D-Type Natriuretic Peptide 315H 08/03/20 15:27: Coronavirus (COVID-19)(PCR) NEGATIVE CBC/BMP Laboratory Tests 08/03/20 13:22 Home Medications Scheduled Fluticasone Propionate (Flovent Hfa) 44 Mcg/Act Aer.w.adap, 1 PUFF INH BID Furosemide (Furosemide) 20 Mg Tablet, 20 MG PO DAILY Lactulose (Constulose) 10 Gm/15 Ml Solution, 30 ML PO DAILY Losartan Potassium (Losartan Potassium) 25 Mg Tablet, 25 MG PO DAILY Metoprolol Succinate (Metoprolol Succinate) 25 Mg Tab.er.24h, 25 MG PO DAILY Montelukast Sodium (Montelukast Sodium) 10 Mg Tablet, 10 MG PO DAILY Multivitamin (Multivitamins) 1 Each Tablet, 1 TAB PO DAILY Omeprazole (Omeprazole) 40 Mg Capsule.dr, 40 MG PO DAILY Spironolactone (Spironolactone) 100 Mg Tablet, 100 MG PO DAILY Tamsulosin Hcl (Tamsulosin HCl) 0.4 Mg Capsule, 0.4 MG PO DAILY Scheduled PRN Albuterol Sulfate (Ventolin Hfa) 18 Gm Hfa.aer.ad, 2 PUFFS INH QID PRN for SOB/WHEEZING Allergies Coded Allergies: POLLEN (Verified Allergy, Unknown, 05/22/20) A-FIB/CHADSVASC A-FIB History Current/History of A-Fib/PAF?: No Current PO Anticoag Therapy: No Age/Risk Factor Scoring CHADSVASC: CHADSVASC Response (Comments) Value Age Risk Factor Age < 65 years old 0 Gender Risk Factor Male 0 Hx of CHF Yes 1 Hx of HTN Yes 1 Hx of Stroke/TIA/or VTE No 0 Hx of Diabetes No 0 Hx of Vascular Disease No 0 Total 2 Treatment Treatment ordered: NONE AJSMINA ALMODOVAR MD Aug 03, 2020 16:51
[2020-08-03] MEDS: metOLazone 2.5 MG TAB PO SCH (17:00)
[2020-08-03] MEDS ORDERED: BUMETANIDE 1 MG/4 ML INJ (S0171) IV SCH (17:30)
[2020-08-04] VITALS (17 sets, daily range): BP systolic 90–143; BP diastolic 50–84
[2020-08-04] MEDS: metOLazone 2.5 MG TAB PO SCH ×3 (00:31→16:34)
[2020-08-04] MEDS: IPRATROPIUM 0.5MG/ALBUTEROL 2.5MG INH SOL UD 3ML (DUONEB) NEB PRN ×2 (04:46→22:20)
[2020-08-04 07:59] LABS: EOS # 0.2 10^3/uL (0.0-0.5); EOS % 5.8 % (0.0-3.0); HEMATOCRIT 31.3 % (42.0-52.0); HEMOGLOBIN 10.2 g/dl (13.5-17.5); LYMPH # 0.7 10^3/uL (1.5-5.0); LYMPH % 22.3 % (24.0-44.0); MEAN CORPUSCULAR HEMOGLOBIN 33.6 pg (27.0-33.0); MEAN CORPUSCULAR HGB CONC 32.6 g/dl (32.0-36.5); MONO # 0.4 10^3/uL (0.0-0.8); MONO % 12.3 % (0.0-5.0); NEUTROPHILS # 1.8 10^3/uL (1.5-8.5); NEUTROPHILS % 58.6 % (36.0-66.0); RED BLOOD COUNT 3.04 10^6/uL (4.30-6.10); WHITE BLOOD COUNT 3.1 10^3/uL (4.0-10.0)
[2020-08-04 08:03] LABS: PLATELET COUNT, AUTOMATED 61 10^3/uL (150-450)
[2020-08-04] MEDS: MIDODRINE 5 MG TAB PO SCH ×3 (08:26→15:46)
[2020-08-04 08:29] LABS: ALBUMIN 2.2 GM/DL (3.2-5.2); CREATININE FOR GFR 2.13 MG/DL (0.70-1.30); GLOMERULAR FILTRATION RATE 33.9 (>49); POTASSIUM SERUM 3.9 MEQ/L (3.5-5.1); TOTAL PROTEIN 5.5 GM/DL (6.4-8.2)
--- NOTE | 2020-08-04 08:57 | ECGEPIP ---
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
[2020-08-04] MEDS: BUMETANIDE 1 MG/4 ML INJ (S0171) IV SCH ×2 (09:13→17:07)
--- NOTE | 2020-08-04 09:34 | IPNPDOC ---
Date Seen The patient was seen on 08/04/20. Progress Note SUBJECTIVE: Still complains of abdominal distention, shortness of breath, increased abdominal girth and lower extremity edema. No dizziness or lightheadedness. Patient's systolic pressure is been in the 90s and able to administer intravenous Bumex despite albumin infusion. Denies any chest pain, pressure, tightness, Fever or chills PHYSICAL EXAMINATION: VITAL SIGNS: See below GENERAL APPEARANCE: Lying on his right side. 7-8 word conversational dyspnea HEENT: No nasal flaring or tracheal deviation. No JVD. Thick neck. Moist mucous membranes. Poor dentition CARDIOVASCULAR: S1, S2, regular rate rhythm. LUNGS: Diminished breath sounds on the right with crackles at the base. Left is clear ABDOMEN: Obese, distended, positive fluid wave, positive bowel sounds 4 quadrants. No rebound or guarding. No CVA tenderness Dullness to percussion EXTREMITIES: 3+ pitting edema to the sacrum LABORATORY DATA: See below. IMAGING: See below MICROBIOLOGY: Please see below. ECHOCARDIOGRAM: DATE OF STUDY: 03/12/2020 REFERRING PHYSICIAN: Dr. Steffen Durham INDICATION: Dyspnea. HEIGHT: 178 cm. WEIGHT: 143 kg. 2-D MEASUREMENTS: Aortic root: 3.7 cm Left atrium: 3.2 cm Ventricular septum: 1.15 cm Posterior wall: 1.10 cm Left ventricle diastole: 5.3 cm Aortic annulus: 2.4 cm DOPPLER MEASUREMENTS: Trace aortic regurgitation No aortic stenosis Aortic valve velocity: 197 cm/sec LVOT velocity: 113 cm/sec LVOT VTI: 21.2 cm No mitral regurgitation No mitral stenosis Mitral E velocity: 66.9 cm/sec Mitral A velocity: 85.4 cm/sec Mitral deceleration time: 264 ms Trace tricuspid regurgitation No pulmonic regurgitation Pulmonary artery acceleration time: 95 ms MITRAL ANNULAR TISSUE DOPPLER: E prime septal: 6.7 cm/sec E prime lateral: 17.4 cm/sec DESCRIPTION: The rhythm was sinus, infrequent PVCs. Image quality was fair, however, subcostal windows were technically difficult. No pericardial effusion. This was 2-D, M-mode, color flow Doppler and pulse wave Doppler examination and included mitral annular tissue Doppler. CONCLUSIONS: 1. Normal left ventricle internal dimensions and wall thickness. Normal regional LV wall motion and wall thickening. Normal LV systolic function. LVEF 65% by visual estimate. Grade 1 LV diastolic dysfunction (impaired relaxation filling pattern). Normal left atrial size. 2. Moderate aortic valve sclerosis of a 3-cuspid aortic valve. Trace aortic regurgitation. No aortic stenosis. 3. Abbreviated pulmonary acceleration time suggestive of mild elevation of pulmonary artery systolic pressure. 4. Otherwise normal appearing echocardiogram Doppler findings. ASSESSMENT: 60-year-old male with history of alcoholic liver cirrhosis with decompensated liver failure and recurrent ascites and pleural effusions requiring thoracentesis and paracentesis recently admitted and discharged twice prior to presentation again today. Patient has noted weight gain, increasing lower extremity edema, shortness of breath, increasing abdominal girth, difficulty ambulating due to dyspnea and exertion. . He denies any fever, chills, nausea, vomiting, hematemesis, bright red blood per rectum, melena, or black tarry stools last alcoholic drink was spring 2019. Patient was due to see Dr. Hancock in August 2020 for his first visit. . He admits to eating take-out food and canned prepared foods. He follows a 2 L fluid restriction and no added salt at home. . Acute decompensated liver cirrhosis with recurrent ascites and pleural effusion Recurrent ascites due to portal hypertension Pleural effusion secondary to hypoalbuminemia and decompensated liver cirrhosis . Acute kidney injury secondary to decreased circulating blood volume Anasarca/ third spacing Hypoalbuminemia secondary to alcoholic liver cirrhosis . Chronic pancytopenia secondary to liver cirrhosis . Macrocytic anemia secondary to liver disease , Alcohol abuse . Tobacco abuse with cigar coagulopathy due to etoh liver disease Hyperbilirubinemia due to ETOH liver disease, decompensated Hypotension due to decreased circulating blood volume PLAN: Due to anasarca and third spacing. Patient has been unable to keep a mean arterial pressure greater than 75. we have been unable to give intravenous diuretics despite albumin infusions. Instead of using vasopressors, Will attempt to increase patient's systolic pressure by using midodrine and albumin infusions, and increase Diuresis by using Zaroxolyn and Bumex. Serial electrolyte and creatinine monito ring to adjust supplementation of potassium, magnesium and calcium as needed. Thoracentesis and paracentesis ordered for the morning. . He has no encephalopathy or fever, to warrant antibiotic use empirically. VS, I&O, 24H, Fishbone Vital Signs/I&O Vital Signs Date Time Temp Pulse Resp B/P (MAP) Pulse Ox O2 Delivery O2 Flow Rate FiO2 12//20 07:31 97.4 60 18 95/53 (67) 94 Nasal Cannula 2.0 I&O- Last 24 Hours up to 6 AM 08/04/20 06:00 Intake Total 1260.0 ml Output Total 250 ml Balance 1010.0 ml Laboratory Data 24H LABS Laboratory Tests 2 08/03/20 13:22: Immature Granulocyte % (Auto) 0.3, Neutrophils (%) (Auto) 67.3H, Lymphocytes (%) (Auto) 16.4L, Monocytes (%) (Auto) 12.3H, Eosinophils (%) (Auto) 2.8, Basophils (%) (Auto) 0.9, Neutrophils # (Auto) 2.1, Lymphocytes # (Auto) 0.5L, Monocytes # (Auto) 0.4, Eosinophils # (Auto) 0.1, Basophils # (Auto) 0.0, Nucleated Red Blood Cells % (auto) 0.0, Immature Platelet Fraction 3.7, Anion Gap 6L, Glomerular Filtration Rate 37.8L, Calcium Level 8.2L, Total Bilirubin 2.9H, Direct Bilirubin 1.5H, Aspartate Amino Transf (AST/SGOT) 62H, Alanine Aminotransferase (ALT/SGPT) 41, Alkaline Phosphatase 182H, Total Creatine Kinase 101, Creatine Kinase MB 2.4, Creatine Kinase MB Relative Index 2.38, Troponin I < 0.02, Total Protein 5.9L, Albumin 2.0L, Albumin/Globulin Ratio 0.5 08/03/20 13:28: Prothrombin Time 17.2H, Prothromb Time International Ratio 1.37, Activated Partial Thromboplast Time 33.8, IS-Brz-X-Type Natriuretic Peptide 315H 08/03/20 15:27: Coronavirus (COVID-19)(PCR) NEGATIVE 08/04/20 07:44: Immature Granulocyte % (Auto) 0.0, Neutrophils (%) (Auto) 58.6, Lymphocytes (%) (Auto) 22.3L, Monocytes (%) (Auto) 12.3H, Eosinophils (%) (Auto) 5.8H, Basophils (%) (Auto) 1.0, Neutrophils # (Auto) 1.8, Lymphocytes # (Auto) 0.7L, Monocytes # (Auto) 0.4, Eosinophils # (Auto) 0.2, Basophils # (Auto) 0.0, Nucleated Red Blood Cells % (auto) 0.0, Anion Gap 7L, Glomerular Filtration Rate 33.9L, Calcium Level 8.0L, Total Bilirubin 3.0H, Aspartate Amino Transf (AST/SGOT) 55H, Alanine Aminotransferase (ALT/SGPT) 35, Alkaline Phosphatase 163H, Total Protein 5.5L, Albumin 2.2L, Albumin/Globulin Ratio 0.7 CBC/BMP Laboratory Tests 08/03/20 13:22 08/04/20 07:44 JASMINA ALMODOVAR MD Aug 04, 2020 09:34
[2020-08-05] VITALS (12 sets, daily range): BP systolic 109–146; BP diastolic 58–88
[2020-08-05] MEDS: metOLazone 2.5 MG TAB PO SCH ×3 (01:26→17:45)
[2020-08-05] MEDS: BUMETANIDE 1 MG/4 ML INJ (S0171) IV SCH ×3 (01:30→17:45)
[2020-08-05 05:18] LABS: CALCIUM LEVEL 7.8 MG/DL (8.8-10.2); CREATININE FOR GFR 1.92 MG/DL (0.70-1.30); GLOMERULAR FILTRATION RATE 38.2 (>49); MAGNESIUM LEVEL 1.9 MG/DL (1.8-2.4); POTASSIUM SERUM 3.7 MEQ/L (3.5-5.1)
[2020-08-05] MEDS ORDERED: POTASSIUM CHLORIDE 10 MEQ SR TABLET PO ONE (08:00)
[2020-08-05] MEDS ORDERED: MAG SULF 1GM/100ML (MAG RUN) 1 GM in IV 1 EA IV ONE (08:00)
[2020-08-05] MEDS: MIDODRINE 5 MG TAB PO SCH ×3 (09:32→17:46)
--- NOTE | 2020-08-05 11:07 | IPNPDOC ---
Date Seen The patient was seen on 08/05/20. Progress Note SUBJECTIVE: some improvement in sob. no chest pain, pressure, fever, chills. cough w white sputum. PHYSICAL EXAMINATION: VITAL SIGNS: See below GENERAL APPEARANCE: Mild distress, use of respiratory muscles at 8 with conversational dyspnea HEENT: No nasal flaring or tracheal deviation. No JVD. Thick neck. Moist mucous membranes. Poor dentition CARDIOVASCULAR: S1, S2, regular rate rhythm. LUNGS: Diminished breath sounds on the right ABDOMEN: Obese, distended, positive fluid wave, positive bowel sounds 4 quadrants. No rebound or guarding. No CVA tenderness Dullness to percussion EXTREMITIES: 3+ pitting edema to the sacrum LABORATORY DATA: See below. IMAGING: See below MICROBIOLOGY: Please see below. ECHOCARDIOGRAM: DATE OF STUDY: 03/12/2020 REFERRING PHYSICIAN: Dr. Steffen Durham INDICATION: Dyspnea. HEIGHT: 178 cm. WEIGHT: 143 kg. 2-D MEASUREMENTS: Aortic root: 3.7 cm Left atrium: 3.2 cm Ventricular septum: 1.15 cm Posterior wall: 1.10 cm Left ventricle diastole: 5.3 cm Aortic annulus: 2.4 cm DOPPLER MEASUREMENTS: Trace aortic regurgitation No aortic stenosis Aortic valve velocity: 197 cm/sec LVOT velocity: 113 cm/sec LVOT VTI: 21.2 cm No mitral regurgitation No mitral stenosis Mitral E velocity: 66.9 cm/sec Mitral A velocity: 85.4 cm/sec Mitral deceleration time: 264 ms Trace tricuspid regurgitation No pulmonic regurgitation Pulmonary artery acceleration time: 95 ms MITRAL ANNULAR TISSUE DOPPLER: E prime septal: 6.7 cm/sec E prime lateral: 17.4 cm/sec DESCRIPTION: The rhythm was sinus, infrequent PVCs. Image quality was fair, however, subcostal windows were technically difficult. No pericardial effusion. This was 2-D, M-mode, color flow Doppler and pulse wave Doppler examination and included mitral annular tissue Doppler. CONCLUSIONS: 1. Normal left ventricle internal dimensions and wall thickness. Normal regional LV wall motion and wall thickening. Normal LV systolic function. LVEF 65% by visual estimate. Grade 1 LV diastolic dysfunction (impaired relaxation filling pattern). Normal left atrial size. 2. Moderate aortic valve sclerosis of a 3-cuspid aortic valve. Trace aortic regurgitation. No aortic stenosis. 3. Abbreviated pulmonary acceleration time suggestive of mild elevation of pulmonary artery systolic pressure. 4. Otherwise normal appearing echocardiogram Doppler findings. ASSESSMENT: 60-year-old male with history of alcoholic liver cirrhosis with decompensated liver failure and recurrent ascites and pleural effusions requiring thoracentesis and paracentesis recently admitted and discharged twice prior to presentation again today. Patient has noted weight gain, increasing lower ex tremity edema, shortness of breath, increasing abdominal girth, difficulty ambulating due to dyspnea and exertion. . He denies any fever, chills, nausea, vomiting, hematemesis, bright red blood per rectum, melena, or black tarry stools last alcoholic drink was spring 2019. Patient was due to see Dr. Hancock in August 2020 for his first visit. . He admits to eating take-out food and canned prepared foods. He follows a 2 L fluid restriction and no added salt at home. Acute decompensated liver cirrhosis with recurrent ascites and pleural effusion -Due to hypotension. Patient had to be given midodrine and albumin infusions in order to diurese -On fluid restriction, daily weights, IV diuretics Recurrent ascites due to portal hypertension -Paracentesis tomorrow. -Continue with diuretics, fluid restriction, albumin infusion as needed Pleural effusion secondary to hypoalbuminemia and decompensated liver cirrhosis -Thoracentesis today -TU with IV diuretics . Acute kidney injury secondary to decreased circulating blood volume -Monitoring for worsening renal function -No signs of metabolic acidosis or hyperkalemia Anasarca/ third spacing -Due to decompensated liver cirrhosis with portal hypertension complicated by recurrent ascites and pleural effusions Hypoalbuminemia secondary to alcoholic liver cirrhosis -Status post albumin transfusion due to low blood pressure Chronic pancytopenia secondary to liver cirrhosis -No signs of active bleeding. No indication for blood transfusion -Check folate and B12 Macrocytic anemia secondary to liver disease -No acute indication for blood transfusion. No signs of active GI bleeding History of Alcohol abuse, resolved History of Tobacco abuse with cigar coagulopathy due to etoh liver disease -No active bleeding Hyperbilirubinemia due to ETOH liver disease, decompensated -Continue daily comprehensive panel Hypotension due to decreased circulating blood volume -Improved on midodrine , allowing for diuresis -No fever or signs of SBP -No. Antibiotics DVT prophylaxis compression stockings due to coagulopathy CODE STATUS full code Disposition 1-2 more days. Patient has paracentesis in the morning. Continue with diuretics for now discharged in the afternoon tomorrow if euvolemic. Needs appointment with IR Dr. Waters for TIPS evaluation VS, I&O, 24H, Fishbone Vital Signs/I&O Vital Signs Date Time Temp Pulse Resp B/P (MAP) Pulse Ox O2 Delivery O2 Flow Rate FiO2 08/05/20 08:21 2.0 08/05/20 08:00 97.4 68 18 133/71 (91) 95 Nasal Cannula I&O- Last 24 Hours up to 6 AM 08/05/20 06:00 Intake Total 1495.0 ml Output Total 4400 ml Balance -2905.0 ml Laboratory Data 24H LABS Laboratory Tests 2 08/05/20 04:18: Anion Gap 8, Glomerular Filtration Rate 38.2L, Calcium Level 7.8L, Magnesium Level 1.9 CBC/BMP Laboratory Tests 08/05/20 04:18 JASMINA ALMODOVAR MD Aug 05, 2020 11:07
[2020-08-05] MEDS ORDERED: SODIUM BICARBONATE 8.4% INJ 50MEQ 50 ML VIAL As Ordered ONE ×2 (13:07→13:19)
--- NOTE | 2020-08-05 14:15 | REP ---
INDICATION: POST RIGHT THORA, 2 VIEW. COMPARISON: Comparison radiograph August 03, 2020.. TECHNIQUE: AP and lateral views. FINDINGS: The size of the right pleural effusion is improved. There is D[place] some blunting of the right lateral and posterior pleural angles. Left pleural angles are sharp. There is no evidence of pneumothorax. Heart is not enlarged. The aorta is tortuous. IMPRESSION: Improved right pleural effusion post right thoracentesis. No complication seen. <Electronically signed by Sunny Stoner > 08/05/20 [id number]
[2020-08-05] MEDS: IPRATROPIUM 0.5MG/ALBUTEROL 2.5MG INH SOL UD 3ML (DUONEB) NEB PRN (16:41)
--- NOTE | 2020-08-05 19:40 | REP ---
INDICATION: pleural effusion COMPARISON: None. TECHNIQUE: The procedure was performed by ANJANA Gupta, under the direct supervision of Dr. Stoner The risks and benefits of the procedure were explained to the patient and an informed consent was obtained both verbally and written. Directly prior to the start of the procedure a formal time-out was completed in the procedure room. Pleural fluid in right lung zone was localized using ultrasound guidance. The skin was prepped and draped in a sterile fashion. Seven ML of buffered lidocaine was used as a local anesthetic. Using ultrasound guidance an 8-[place] multi side-hole catheter was inserted using trocar technique. FINDINGS: Two thousand mL of yellow colored fluid was withdrawn. The patient tolerated the procedure well and there were no immediate complications. After the appropriate amount of monitored convalescence, the patient was discharged from the department. IMPRESSION: Ultrasound-guided thoracentesis with removal of 2000 mL of fluid. <Electronically signed by Betzaida Starkey > 08/05/20 [id number] <Electronically signed by Sunny Stoner > 08/05/20 [id number]
[2020-08-06] VITALS: BP 133/76
[2020-08-06] MEDS: metOLazone 2.5 MG TAB PO SCH ×3 (01:00→17:00)
[2020-08-06] MEDS: BUMETANIDE 1 MG/4 ML INJ (S0171) IV SCH ×3 (01:11→17:07)
[2020-08-06 04:00] VITALS: BP 111/63
[2020-08-06 08:00] VITALS: BP 110/57
[2020-08-06 08:11] LABS: HEMATOCRIT 32.4 % (42.0-52.0); HEMOGLOBIN 10.8 g/dl (13.5-17.5); MEAN CORPUSCULAR HGB CONC 33.3 g/dl (32.0-36.5); MEAN CORPUSCULAR VOLUME 99.1 fl (80.0-96.0); RED BLOOD COUNT 3.27 10^6/uL (4.30-6.10); WHITE BLOOD COUNT 4.7 10^3/uL (4.0-10.0)
[2020-08-06 08:18] LABS: PLATELET COUNT, AUTOMATED 56 10^3/uL (150-450)
[2020-08-06 08:40] LABS: ALBUMIN 2.4 GM/DL (3.2-5.2); BILIRUBIN,TOTAL 3.9 MG/DL (0.2-1.0); CALCIUM LEVEL 8.3 MG/DL (8.8-10.2); CREATININE FOR GFR 1.35 MG/DL (0.70-1.30); GLOMERULAR FILTRATION RATE 57.4 (>49); POTASSIUM SERUM 3.3 MEQ/L (3.5-5.1); TOTAL PROTEIN 5.9 GM/DL (6.4-8.2)
[2020-08-06] MEDS ORDERED: SODIUM BICARBONATE 8.4% INJ 50MEQ 50 ML VIAL As Ordered ONE (08:54)
[2020-08-06] MEDS: MIDODRINE 5 MG TAB PO SCH ×3 (09:00→17:13)
[2020-08-06] MEDS ORDERED: POTASSIUM CHLORIDE 10 MEQ SR TABLET PO ONE (09:45)
--- NOTE | 2020-08-06 10:55 | REP ---
INDICATION: ascites. COMPARISON: 08/03/2020. TECHNIQUE: Real-time sonographic evaluation of the abdomen performed. FINDINGS: No significant ascites fluid is seen in any portion of the abdomen or pelvis. IMPRESSION: No ascites fluid present. The scheduled paracentesis is canceled. <Electronically signed by Eliezer Chung > 08/06/20 105
[2020-08-06 12:00] VITALS: BP 118/70
[2020-08-06 16:00] VITALS: BP 116/64
--- NOTE | 2020-08-06 17:57 | IPNPDOC ---
Date Seen The patient was seen on 08/06/20. Progress Note SUBJECTIVE: Thoracentesis done on 08/05/20 with 2 L fluid taken off. Paracentesis cancelled today due to little/no ascites seen. Off O2, saturating at 91% on RA. Denies chest pain, pressure, fever, chills. cough w white sputum. PHYSICAL EXAMINATION: VITAL SIGNS: See below GENERAL APPEARANCE: NAD, resting in bed. AAOx3 HEENT: No nasal flaring or tracheal deviation. No JVD. Thick neck. Moist mucous membranes. Poor dentition CARDIOVASCULAR: S1, S2, regular rate rhythm. LUNGS: Decreased breath sounds b/l, no W/R/R ABDOMEN: Obese, distended,positive bowel sounds 4 quadrants. No rebound or guarding. No CVA tenderness Dullness to percussion EXTREMITIES: 3+ pitting edema to the sacrum LABORATORY DATA: See below. MICROBIOLOGY: Please see below. IMAGING: CXR 08/05/20 s/p thoracentesis: Improved right pleural effusion post right thoracentesis. No complication seen. ECHOCARDIOGRAM 03/12/2020: 1. Normal left ventricle internal dimensions and wall thickness. Normal regional LV wall motion and wall thickening. Normal LV systolic function. LVEF 65% by visual estimate. Grade 1 LV diastolic dysfunction (impaired relaxation filling pattern). Normal left atrial size. 2. Moderate aortic valve sclerosis of a 3-cuspid aortic valve. Trace aortic regurgitation. No aortic stenosis. 3. Abbreviated pulmonary acceleration time suggestive of mild elevation of pulmonary artery systolic pressure. 4. Otherwise normal appearing echocardiogram Doppler findings. ASSESSMENT: 60-year-old male with history of alcoholic liver cirrhosis with decompensated liver failure and recurrent ascites and pleural effusions requiring thoracentesis and paracentesis recently admitted and discharged twice prior to presentation again today. Patient has noted weight gain, increasing lower extr emity edema, shortness of breath, increasing abdominal girth, difficulty ambulating due to dyspnea and exertion. . He denies any fever, chills, nausea, vomiting, hematemesis, bright red blood per rectum, melena, or black tarry stools last alcoholic drink was spring 2019. Patient was due to see Dr. Hancock in August 2020 for his first visit. . He admits to eating take-out food and canned prepared foods. He follows a 2 L fluid restriction and no added salt at home. PLAN: Acute decompensated liver cirrhosis with recurrent ascites and pleural effusion -VS improved. -Remains in neg fluid balance -Patient was given midodrine and albumin infusions in order to thoracentesis -On fluid restriction, daily weights, IV diuretics, metolazone Recurrent ascites due to portal hypertension -Paracentesis not done today due to little ascites seen on abd xr -Continue with diuretics, fluid restriction Pleural effusion secondary to hypoalbuminemia and decompensated liver cirrhosis -S/p thoracentesis 08/05/20 with 2 L fluid removed -Currently off O2 saturating in low 90's -Will need walking desat study in AM to determine need for O2 with activity -Adding incentive spirometer Q2H while awake -Improved CXR above -C/w with IV diuretics Hypotension due to decreased circulating blood volume -Improved on midodrine , allowing for diuresis -No fever or signs of SBP -No Antibiotics -Monitoring closely Hypokalemia likely 2/2 to diuresis -Replace PRN -F/u labs in AM Acute kidney injury secondary to decreased circulating blood volume -Cr 1.35, much improved despite diuresis -F/u AM labs Anasarca/ third spacing 2/2 to decompensated liver cirrhosis with portal hypertension -complicated by recurrent ascites and pleural effusions -C/w treatment above Hypoalbuminemia secondary to alcoholic liver cirrhosis -Status post albumin transfusion due to low blood pressure Chronic pancytopenia secondary to liver cirrhosis -No signs of active bleeding. No indication for blood transfusion -CBC daily Macrocytic anemia secondary to liver disease -No acute indication for blood transfusion. -No signs of active GI bleeding -CBC daily History of Alcohol abuse -Resolved. History of Tobacco abuse with cigar Coagulopathy due to etoh liver disease -No active bleeding -CBC daily Hyperbilirubinemia due to ETOH liver disease, decompensated -Continue daily comprehensive panel DVT prophylaxis compression stockings due to coagulopathy Disposition: Improving slowly after thoracentesis. Will need walking study in AM to determine need for O2 with activity. If does well, consider d/c home with f/u appointment with IR Dr. Waters for TIPS evaluation VS, I&O, 24H, Fishbone Vital Signs/I&O Vital Signs Date Time Temp Pulse Resp B/P (MAP) Pulse Ox O2 Delivery O2 Flow Rate FiO2 08/06/20 16:00 99.0 75 19 116/64 (81) 91 Room Air 08/06/20 09:10 2 I&O- Last 24 Hours up to 6 AM 08/06/20 06:00 Intake Total 2900 ml Output Total 5400 ml Balance -2500 ml Laboratory Data 24H LABS Laboratory Tests 2 08/06/20 07:29: Nucleated Red Blood Cells % (auto) 0.0, Immature Platelet Fraction 4.9, Anion Gap 7L, Glomerular Filtration Rate 57.4, Calcium Level 8.3L, Total Bilirubin 3.9H, Aspartate Amino Transf (AST/SGOT) 56H, Alanine Aminotransferase (ALT/SGPT) 33, Alkaline Phosphatase 166H, Total Protein 5.9L, Albumin 2.4L, Albumin/ Globulin Ratio 0.7 CBC/BMP Laboratory Tests 08/06/20 07:29 Current Medications Current Medications Medications (Trade) Dose Ordered Sig/Dari Route PRN Reason Start Time Stop Time Status Last Admin Dose Admin Albuterol/ Ipratropium (Duoneb (Ipr 0.5mg/Alb 2.5mg)) 3 ml Q4HP PRN NEB SOB/WHEEZING 08/04/20 04:00 08/05/20 16:41 Bumetanide (Bumex) 1 mg DAILY IV 08/03/20 17:30 08/04/20 07:12 DC Bumetanide (Bumex) 2 mg Q8H IV 08/04/20 09:30 08/05/20 17:45 Home Med (Med Rec Complete!) ASDIRECTED XX 08/03/20 16:15 08/03/20 16:07 DC Metolazone (Zaroxolyn) 2.5 mg Q8H PO 08/03/20 17:00 08/04/20 07:12 DC Metolazone (Zaroxolyn) 2.5 mg Q8H PO 08/04/20 09:00 08/05/20 17:45 Midodrine (Proamatine) 10 mg 08,12,16 PO 08/04/20 08:00 08/06/20 17:13 Sodium Chloride 1,000 ml @ 125 mls/hr Q8H IV 08/03/20 15:00 08/03/20 15:35 DC 08/03/20 14:52 Allergies Coded Allergies: POLLEN (Verified Allergy, Unknown, 05/22/20) Martha Arevalo MD Aug 06, 2020 17:57
[2020-08-06 20:00] VITALS: BP 126/73
[2020-08-06] MEDS: IPRATROPIUM 0.5MG/ALBUTEROL 2.5MG INH SOL UD 3ML (DUONEB) NEB PRN (22:52)
[2020-08-07] VITALS: BP 132/76
[2020-08-07] MEDS: metOLazone 2.5 MG TAB PO SCH ×2 (01:00→08:35)
[2020-08-07] MEDS: BUMETANIDE 1 MG/4 ML INJ (S0171) IV SCH ×2 (01:30→10:17)
[2020-08-07 04:00] VITALS: BP 132/78
[2020-08-07 04:36] LABS: HEMATOCRIT 31.7 % (42.0-52.0); HEMOGLOBIN 10.5 g/dl (13.5-17.5); MEAN CORPUSCULAR HEMOGLOBIN 32.7 pg (27.0-33.0); MEAN CORPUSCULAR HGB CONC 33.1 g/dl (32.0-36.5); MEAN CORPUSCULAR VOLUME 98.8 fl (80.0-96.0); RED BLOOD COUNT 3.21 10^6/uL (4.30-6.10); WHITE BLOOD COUNT 4.4 10^3/uL (4.0-10.0)
[2020-08-07 04:39] LABS: PLATELET COUNT, AUTOMATED 57 10^3/uL (150-450)
[2020-08-07 04:51] LABS: ALBUMIN 2.1 GM/DL (3.2-5.2); ALT/SGPT 32 U/L (12-78); BILIRUBIN,TOTAL 2.5 MG/DL (0.2-1.0); BLOOD UREA NITROGEN 20 MG/DL (7-18); CARBON DIOXIDE LEVEL 36 MEQ/L (21-32); CHLORIDE LEVEL 96 MEQ/L (98-107); CREATININE FOR GFR 1.03 MG/DL (0.70-1.30); GLOMERULAR FILTRATION RATE > 60.0 (>49); GLUCOSE, FASTING 94 MG/DL (70-100); POTASSIUM SERUM 3.5 MEQ/L (3.5-5.1); SODIUM LEVEL 138 MEQ/L (136-145); TOTAL PROTEIN 5.5 GM/DL (6.4-8.2)
[2020-08-07] MEDS ORDERED: FURO20TA2 PO (07:57)
[2020-08-07 08:00] VITALS: BP 128/70
[2020-08-07] MEDS: MIDODRINE 5 MG TAB PO SCH (08:34)
--- NOTE | 2020-08-07 15:06 | DS.PDOC ---
Discharge Summary General Date of Admission Aug 03, 2020 at 15:30 Date of Discharge 08/07/20 Attending Physician: Martha Arevalo MD Discharge Summary HISTORY OF PRESENT ILLNESS: 60-year-old male with history of alcoholic liver cirrhosis with decompensated liver failure and recurrent ascites and pleural effusions requiring thoracentesis and paracentesis recently admitted and discharged twice prior to presentation again today. Patient has noted weight gain, increasing lower extre mity edema, shortness of breath, increasing abdominal girth, difficulty ambulating due to dyspnea and exertion. . He denies any fever, chills, nausea, vomiting, hematemesis, bright red blood per rectum, melena, or black tarry stools last alcoholic drink was spring 2019. Patient was due to see Dr. Hancock in August 2020 for his first visit. . He admits to eating take-out food and canned prepared foods. He follows a 2 L fluid restriction and no added salt at home. HOSPITAL COURSE: Patient was treated with albumin for lower than normal blood pressures. He under went thoracentesis done on 08/05/20 with 2 L fluid taken off. He was started on midodrine also this stay due to low BP. Paracentesis was cancelled due to little/no ascites seen. He required several liters of O2 initial on admissi on;however, after diuresing and thoracentesis for pleural effusion, patient's hypoxia improved and he was taken off O2. He remained in neg fluid balance with diuresis. Acute kidney injury and hypokalemia improved over time. He ate well and did well with PT/OT. On 08/07/20 he was discharged home to follow up with Interventional Radiology for outpatient TIPS procedure. He is to follow up with his GI provider and PCP as scheduled. At time of discharge, he denied chest pain, shortness of breath, n/v/d, fevers or chills. PAST MEDICAL HISTORY: LVEF65% Grade 1 LV diastolic dysfunction, Asthma, alcoholic liver cirrhosis with recurrent ascites, pleural effusions and chronic thrombocytopenia, morbid obesity, asthma, hypertension, osteoarthritis PAST SURGICAL HISTORY: Multiple thoracentesis and paracentesis due to decompensated liver cirrhosis, bilateral inguinal hernia surgery, right knee arthroscopy, left fourth finger tendon repair SOCIAL HISTORY: Admits to marijuana use prior cigar use. Prior alcohol abuse, last drink was spring 2019. Lives with his girlfriend at home. 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 Mother age 76. Unknown medical problems asthma in brother and sister ALLERGIES: Please see below. DISCHARGE MEDICATIONS: Please see below. PHYSICAL EXAMINATION: VITAL SIGNS: See below GENERAL APPEARANCE: NAD, resting in bed. AAOx3 HEENT: No nasal flaring or tracheal deviation. No JVD. Thick neck. Moist mucous membranes. Poor dentition CARDIOVASCULAR: S1, S2, regular rate rhythm. LUNGS: Decreased breath sounds b/l, no W/R/R ABDOMEN: Obese, distended,positive bowel sounds 4 quadrants. No rebound or guarding. No CVA tenderness Dullness to percussion EXTREMITIES: 3+ pitting edema to the sacrum LABORATORY DATA: See below. MICROBIOLOGY: Please see below. IMAGING: CXR 08/05/20 s/p thoracentesis: Improved right pleural effusion post right thoracentesis. No complication seen. ECHOCARDIOGRAM 03/12/2020: 1. Normal left ventricle internal dimensions and wall thickness. Normal regional LV wall motion and wall thickening. Normal LV systolic function. LVEF 65% by visual estimate. Grade 1 LV diastolic dysfunction (impaired relaxation filling pattern). Normal left atrial size. 2. Moderate aortic valve sclerosis of a 3-cuspid aortic valve. Trace aortic regurgitation. No aortic stenosis. 3. Abbreviated pulmonary acceleration time suggestive of mild elevation of pulmonary artery systolic pressure. 4. Otherwise normal appearing echocardiogram Doppler findings. ASSESSMENT: 60-year-old male with history of alcoholic liver cirrhosis with decompensated liver failure and recurrent ascites and pleural effusions requiring thoracentesis and paracentesis admitted for further treatment of acute decompensated liver cirrhosis with recurrent ascites and effusions. PLAN: Acute decompensated liver cirrhosis with recurrent ascites and pleural effusion -VS improved. -Remains in neg fluid balance -Patient was given midodrine and albumin infusions in order to thoracentesis but BP much improved -Also treated with fluid restriction, daily weights, IV diuretics, metolazone -To f/u with IR as o/p for TIPS procedure Recurrent ascites due to portal hypertension -Paracentesis not done this admission due to little ascites seen on abd xr -Continue with diuretics, close f/u with GI Pleural effusion secondary to hypoalbuminemia and decompensated liver cirrhosis -S/p thoracentesis 08/05/20 with 2 L fluid removed -Currently off O2 saturating well, used incentive spirometer here -Improved CXR above -C/w with oral diuretics Anasarca/ third spacing 2/2 to decompensated liver cirrhosis with portal hypertension -complicated by recurrent ascites and pleural effusions -Improved with diuresis -C/w treatment above -Follow up with IR for TIPS procedure Hypoalbuminemia secondary to alcoholic liver cirrhosis -Status post albumin transfusion History of Alcohol abuse -Resolved. Chronic pancytopenia secondary to liver cirrhosis -No signs of active bleeding. -No indication for blood transfusion -CBC daily Macrocytic anemia secondary to liver disease -No acute indication for blood transfusion. -No signs of active GI bleeding History of Tobacco abuse with cigar Coagulopathy due to etoh liver disease -No active bleeding Hyperbilirubinemia due to ETOH liver disease, decompensated -F/u with PCP, GI Resolved issues: Hypotension due to decreased circulating blood volume Acute kidney injury secondary to decreased circulating blood volume Hypokalemia likely 2/2 to diuresis Disposition: D/c home with f/u appointment with IR Dr. Waters for TIPS evaluation. F/u with PCP as scheduled. TIME SPENT ON DISCHARGE: Greater than 30 minutes. Vital Signs/I&Os Vital Signs Date Time Temp Pulse Resp B/P (MAP) Pulse Ox O2 Delivery O2 Flow Rate FiO2 08/07/20 08:00 99.5 75 19 128/70 (89) 90 Room Air 08/06/20 09:10 2 I&O- Last 24 Hours up to 6 AM 08/07/20 06:00 Intake Total 1510 ml Output Total 3925 ml Balance -2415 ml Laboratory Data Labs 24H Laboratory Tests 2 08/07/20 04:11: Nucleated Red Blood Cells % (auto) 0.0, Anion Gap 6L, Glomerular Filtration Rate > 60.0, Calcium Level 8.0L, Total Bilirubin 2.5H, Aspartate Amino Transf (AST/SGOT) 55H, Alanine Aminotransferase (ALT/SGPT) 32, Alkaline Phosphatase 171H, Total Protein 5.5L, Albumin 2.1L, Albumin/Globulin Ratio 0.6 CBC/BMP Laboratory Tests 08/07/20 04:11 Discharge Medications Scheduled Fluticasone Propionate (Flovent Hfa) 44 Mcg/Act Aer.w.adap, 1 PUFF INH BID, (Reported) Furosemide (Furosemide) 20 Mg Tablet, 60 MG PO DAILY Lactulose (Constulose) 10 Gm/15 Ml Solution, 30 ML PO DAILY, (Reported) Montelukast Sodium (Montelukast Sodium) 10 Mg Tablet, 10 MG PO DAILY, (Reported) Multivitamin (Multivitamins) 1 Each Tablet, 1 TAB PO DAILY, (Reported) Omeprazole (Omeprazole) 40 Mg Capsule.dr, 40 MG PO DAILY, (Reported) Spironolactone (Spironolactone) 100 Mg Tablet, 100 MG PO DAILY, (Reported) Tamsulosin Hcl (Tamsulosin HCl) 0.4 Mg Capsule, 0.4 MG PO DAILY, (Reported) Scheduled PRN Albuterol Sulfate (Ventolin Hfa) 18 Gm Hfa.aer.ad, 2 PUFFS INH QID PRN for SOB/WHEEZING, (Reported) Allergies Coded Allergies: POLLEN (Verified Allergy, Unknown, 05/22/20) Martha Arevalo MD Aug 07, 2020 15:06
== END 2020-08-07 11:29 | disposition home or self-care (01) | DRG 433 ==
LOC: M ED 13:07 → M PCU 15:30 → ENRESERV 16:51 → M ED 20:27
PROVIDERS: ADMIT General Practice; ATTEND General Practice
PROC: 0W993ZZ Drainage of Right Pleural Cavity, Percutaneous Approach (ICD-10-PCS; principal; 2020-08-05 12:00)
DX: K70.31 Alcoholic cirrhosis of liver with ascites (principal); N17.9 Acute kidney failure, unspecified; D61.818 Other pancytopenia; R60.1 Generalized edema; F12.90 Cannabis use, unspecified, uncomplicated; D53.9 Nutritional anemia, unspecified; Z79.899 Other long term (current) drug therapy; E66.01 Morbid (severe) obesity due to excess calories; J45.909 Unspecified asthma, uncomplicated; I10 Essential (primary) hypertension; M19.90 Unspecified osteoarthritis, unspecified site; I95.9 Hypotension, unspecified; E87.6 Hypokalemia

== ENCOUNTER 2020-08-23 10:07 | Inpatient (IN) | payer MEDICARE ==
[2020-08-23] VITALS (12 sets, daily range): BP systolic 99–127; BP diastolic 57–78
[~2020-08-23] VITALS: Ht 180.3 cm; Wt 103.1 kg
[2020-08-23] MEDS ORDERED: POTA1TAB23 PO (10:18)
[2020-08-23 11:18] LABS: BASO % 0.5 % (0.0-1.0); EOS # 0.2 10^3/uL (0.0-0.5); EOS % 4.3 % (0.0-3.0); HEMATOCRIT 33.5 % (42.0-52.0); HEMOGLOBIN 10.7 g/dl (13.5-17.5); LYMPH # 0.6 10^3/uL (1.5-5.0); LYMPH % 15.2 % (24.0-44.0); MEAN CORPUSCULAR HEMOGLOBIN 32.9 pg (27.0-33.0); MEAN CORPUSCULAR HGB CONC 31.9 g/dl (32.0-36.5); MEAN CORPUSCULAR VOLUME 103.1 fl (80.0-96.0); MONO # 0.5 10^3/uL (0.0-0.8); MONO % 14.4 % (0.0-5.0); NEUTROPHILS # 2.4 10^3/uL (1.5-8.5); NEUTROPHILS % 65.1 % (36.0-66.0); RED BLOOD COUNT 3.25 10^6/uL (4.30-6.10); WHITE BLOOD COUNT 3.7 10^3/uL (4.0-10.0)
[2020-08-23 11:30] LABS: PLATELET COUNT, AUTOMATED 58 10^3/uL (150-450)
--- NOTE | 2020-08-23 11:35 | REP ---
INDICATION: sob COMPARISON: 08/03/2020-07/14/2020 TECHNIQUE: Portable AP view of the chest FINDINGS: Moderate to large increasing right pleural effusion and underlying passive atelectasis/partial collapse has progressed since prior examinations. Aerated lung sr are relatively clear. No pneumothorax. Visualized portions of the cardiac silhouette are normal and without suggestions for cardiomegaly. IMPRESSION: Moderate to large right pleural effusion increased from prior examination with presumed underlying pulmonary pathology. <Electronically signed by Jose Qureshi > 08/23/20 [id number]
[2020-08-23 11:47] LABS: ALBUMIN 2.3 GM/DL (3.2-5.2); ALT/SGPT 44 U/L (12-78); BILIRUBIN,TOTAL 2.9 MG/DL (0.2-1.0); BLOOD UREA NITROGEN 12 MG/DL (7-18); CALCIUM LEVEL 8.4 MG/DL (8.8-10.2); CARBON DIOXIDE LEVEL 32 MEQ/L (21-32); CHLORIDE LEVEL 101 MEQ/L (98-107); CREATININE FOR GFR 1.02 MG/DL (0.70-1.30); GLOMERULAR FILTRATION RATE > 60.0 (>49); GLUCOSE, FASTING 110 MG/DL (70-100); POTASSIUM SERUM 3.7 MEQ/L (3.5-5.1); SODIUM LEVEL 137 MEQ/L (136-145)
--- NOTE | 2020-08-23 11:49 | HPEPDOC ---
[facility] Medical History & Physical Date of Admission Aug 23, 2020 Date of Service: Aug 23, 2020 Attending Physician: Martha Arevalo MD History and Physical CHIEF COMPLAINT: Increased SOB HISTORY OF PRESENT ILLNESS: 60-year-old male with history of alcoholic liver cirrhosis with decompensated liver failure and recurrent ascites, recurrent pleural effusions requiring thoracentesis and paracentesis recently admitted (08/03-) who presented to [facility] ER with chief complaint of increased SOB over the past several weeks. The patient was seen by his primary care provider at the end of last week and she doesn't x-ray showing increasing fluid on the right lung. He was told to have a repeat x-ray done on 08/21/2020 which (according to patient but not in our system) showed right pleural effusion increased from prior examination. His PCP told him to come to the ER but he waited until today to be seen. He has had associated weight gain, increasing lower extremity edema, shortness of breath, d ifficulty ambulating due to dyspnea and exertion and nonproductive cough. He denies any chest pain, fever, chills, nausea, vomiting, hematemesis, bright red blood per rectum, melena, or black tarry stools. Last alcoholic drink was early in Spring 2019. He has a scheduled new patient appointment with GI (Dr. Hancock in August 2020) and outpatient TIPS procedure with Dr. Waters 08/27/2020. He admits to not being compliant with low salt diet at home but states he takes his meds daily. In the ER, VS were stable. Repeat CXR showed moderate to large right pleural effusion increased from prior examination with presumed underlying pulmonary pathology. Patient O2 sats dropped to 80's on RA with movement and he was placed on 2 L NC, he appeared to be sitting in bed, no acute distress. Dr. Castro (CT surgery) was consulted for right pleural effusion drainage. CT chest was ordered STAT. Patient was admitted for acute respiratory failure 2/2 to mod-severe recurrent pleural effusion 2/2 to decompensated liver disease. ROS: neg except mentioned above PAST MEDICAL HISTORY: LVEF65% Grade 1 LV diastolic dysfunction, Asthma, alcoholic liver cirrhosis with recurrent ascites, pleural effusions and chronic thrombocytopenia, morbid obesity, asthma, hypertension, osteoarthritis PAST SURGICAL HISTORY: Multiple thoracentesis and paracentesis due to decompensated liver cirrhosis, bilateral inguinal hernia surgery, right knee arthroscopy, left fourth finger tendon repair SOCIAL HISTORY: Admits to marijuana use prior cigar use. Prior alcohol abuse, last drink was spring 2019. Lives with his girlfriend at home. 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 FAMILY HISTORY: Father age 78 with heart disease. Mother age 76. Unknown medical problems asthma in brother and sister ALLERGIES: Please see below. DISCHARGE MEDICATIONS: Please see below. PHYSICAL EXAMINATION: VITAL SIGNS: See below GENERAL APPEARANCE: NAD, resting in bed. AAOx3 HEENT: No nasal flaring or tracheal deviation. No JVD. Thick neck. Moist mucous membranes. Poor dentition CARDIOVASCULAR: S1, S2, regular rate rhythm. LUNGS: Decreased breath sounds right mid, lower lung, no W/R/R ABDOMEN: Obese, distended without fluid wave, positive bowel sounds 4 quadrants. No rebound or guarding. No CVA tenderness Dullness to percussion EXTREMITIES: 2-3+ pitting edema to upper thighs LABORATORY DATA: See below. MICROBIOLOGY: Please see below. IMAGING: CXR 08/23/20: moderate to large right pleural effusion increased from prior examination with presumed underlying pulmonary pathology ECHOCARDIOGRAM 03/12/2020: 1. Normal left ventricle internal dimensions and wall thickness. Normal regional LV wall motion and wall thickening. Normal LV systolic function. LVEF 65% by visual estimate. Grade 1 LV diastolic dysfunction (impaired relaxation filling pattern). Normal left atrial size. 2. Moderate aortic valve sclerosis of a 3-cuspid aortic valve. Trace aortic regurgitation. No aortic stenosis. 3. Abbreviated pulmonary acceleration time suggestive of mild elevation of pulmonary artery systolic pressure. 4. Otherwise normal appearing echocardiogram Doppler findings. ASSESSMENT: 60-year-old male with history of alcoholic liver cirrhosis with decompensated liver failure and recurrent ascites and pleural effusions, hx of thoracentesis and paracentesis admitted for recurrent right side pleural effusion 2/2 to decompensated liver cirrhosis requiring pleural drainage. PLAN: Recurrent right side pleural effusion secondary to decompensated liver cirrhosis -Currently on 2 L NC, hypoxic with exertion on RA, no resp distress currently. -S/p thoracentesis 08/05/20 with 2 L fluid removed -CXR: moderate to large right pleural effusion increased from prior examination with presumed underlying pulmonary pathology -CT surgery consulted for drainage of right pleural effusion, likely placing pigtail catheter for therapeutic tx -C/w home diuretics, monitor on tele, close monitoring of I&O, fluid restriction -If BP drops, can give albumin and midodrine- has required in the past -C/w medications below Acute decompensated liver cirrhosis with ascites and pleural effusion -No abd discomfort, slightly distended abd, no fluid wave- not requesting paracentesis -VS stable aside from O2 -Also treated with fluid restriction, daily weights, IV diuretics, metolazone -TIPS procedure scheduled for 08/27/19 -New patient appt with GI for for mid August 2020 -AST/ALT are baseline for patient -Follow daily CMP -C/w home spironolactone, lasix, lactulose Recurrent ascites due to portal hypertension -Please see above -Continue with diuretics -F/u with GI, IR for TIPS Anasarca/ third spacing 09/24 to decompensated liver cirrhosis with portal hypertension -complicated by recurrent ascites and pleural effusions -C/w treatment, f/u above above Hypoalbuminemia secondary to alcoholic liver cirrhosis -Watching BP, can give albumin transfusion if needed History of Alcohol abuse -Last drink early 2019 Chronic pancytopenia secondary to liver cirrhosis -Baseline CBC -No signs of active bleeding. -No indication for blood transfusion -CBC daily Macrocytic anemia secondary to liver disease -Baseline CBC -No acute indication for blood transfusion. -No signs of active GI bleeding History of Tobacco abuse with cigar Coagulopathy due to etoh liver disease -No active bleeding Hyperbilirubinemia due to ETOH liver disease, decompensated -F/u with PCP, GI DVT px. -SCD, teds DISPOSITION: CT surgery to see on admission. F/u PT/OT. Plan is discharge home when appropriate. Vital Signs Vital Signs Date Time Temp Pulse Resp B/P (MAP) Pulse Ox O2 Delivery O2 Flow Rate FiO2 08/23/20 11:17 08/23/20 11:15 85 92 Nasal Cannula 2.0 08/23/20 10:52 82 08/23/20 10:08 97.8 Laboratory Data Labs 24H Laboratory Tests 2 08/23/20 11:08: Immature Granulocyte % (Auto) 0.5, Neutrophils (%) (Auto) 65.1, Lymphocytes (%) (Auto) 15.2L, Monocytes (%) (Auto) 14.4H, Eosinophils (%) (Auto) 4.3H, Basophils (%) (Auto) 0.5, Neutrophils # (Auto) 2.4, Lymphocytes # (Auto) 0.6L, Monocytes # (Auto) 0.5, Eosinophils # (Auto) 0.2, Basophils # (Auto) 0.0, Nucleated Red Blood Cells % (auto) 0.0, Immature Platelet Fraction 3.9 CBC/BMP Laboratory Tests 08/23/20 11:08 Home Medications Scheduled Fluticasone Propionate (Flovent Hfa) 44 Mcg/Act Aer.w.adap, 1 PUFF INH BID Furosemide (Furosemide) 20 Mg Tablet, 60 MG PO DAILY Lactulose (Constulose) 10 Gm/15 Ml Solution, 30 ML PO DAILY Losartan Potassium (Losartan Potassium) 25 Mg Tablet, 25 MG PO DAILY Metoprolol Succinate (Metoprolol Succinate) 25 Mg Tab.er.24h, 25 MG PO DAILY Multivitamin (Multivitamins) 1 Each Tablet, 1 TAB PO DAILY Omeprazole (Omeprazole) 40 Mg Capsule.dr, 40 MG PO DAILY Potassium Chloride (Potassium Chloride) 10 Meq Tablet.er, 10 MEQ PO DAILY Spironolactone (Spironolactone) 100 Mg Tablet, 100 MG PO DAILY Tamsulosin Hcl (Tamsulosin HCl) 0.4 Mg Capsule, 0.4 MG PO DAILY Scheduled PRN Albuterol Sulfate (Ventolin Hfa) 18 Gm Hfa.aer.ad, 2 PUFFS INH QID PRN for SOB/WHEEZING Allergies Coded Allergies: POLLEN (Verified Allergy, Unknown, 05/22/20) A-FIB/CHADSVASC A-FIB History Current/History of A-Fib/PAF?: No Current PO Anticoag Therapy: No Age/Risk Factor Scoring CHADSVASC: CHADSVASC Response (Comments) Value Age Risk Factor Age < 65 years old 0 Gender Risk Factor Male 0 Hx of CHF No 0 Hx of HTN Yes 1 Hx of Stroke/TIA/or VTE No 0 Hx of Diabetes No 0 Hx of Vascular Disease No 0 Total 1 Treatment Treatment ordered: Other Other anticoagulant ordered: scd Martha Arvealo MD Aug 23, 2020 11:49
[2020-08-23 11:50] LABS: INR 1.4; PROTHROMBIN TIME 17.5 SECONDS (12.5-14.3)
[2020-08-23] MEDS ORDERED: LOSA25TA14 PO (12:37)
[2020-08-23] MEDS ORDERED: METO1TAB32 PO (12:37)
[2020-08-23] MEDS ORDERED: FURO20TA2 PO (12:37)
--- NOTE | 2020-08-23 12:55 | REP ---
INDICATION: recurrent right pleural effusion COMPARISON: 03/09/2020 TECHNIQUE: Axial noncontrast images from the thoracic inlet to the upper abdomen with coronal and sagittal reformations. This CT examination was performed using the following dose reduction techniques: Automated exposure control, adjustment of mA and/or kv according to the patient's size, and use of iterative reconstruction technique. FINDINGS: Large right pleural effusion with associated collapse of the right lower lobe, right middle lobe, and partial collapse of the right upper lobe. The aerated right upper lobe and left hemithorax are clear. No obvious adenopathy. Further evaluation of the mediastinum demonstrates atherosclerotic changes to the thoracic aorta and coronary arteries without aortic aneurysm or cardiomegaly. No pericardial effusion. Surrounding musculoskeletal structures demonstrate age-related degenerative changes. Upper abdomen demonstrates ascites and infiltrating mesenteric edema with nodular contour to the visualized liver suggesting cirrhosis. IMPRESSION: Large right pleural effusion with associated areas of collapse/partial collapse. Limited upper abdomen demonstrates ascites and findings consistent with cirrhosis. <Electronically signed by Jose Qureshi > 08/23/20 [id number]
[2020-08-23] MEDS ORDERED: ALBUTEROL 90 MCG/ACT 8GM HFA INHALER INH PRN (13:00)
[2020-08-23 13:28] LABS: RSV AMPLIFICATION NEGATIVE (NEGATIVE)
[2020-08-23] MEDS ORDERED: flumazeniL 0.5 MG/5 ML VIAL As Ordered ONE (13:32)
[2020-08-23] MEDS ORDERED: LIDOCAINE 1% MDV 20ML VIAL As Ordered ONE (13:33)
[2020-08-23] MEDS ORDERED: MIDAZOLAM INJ 2MG/2ML VIAL (J2250 PER 1MG) As Ordered ONE (13:33)
[2020-08-23] MEDS ORDERED: BISACODYL 10 MG SUPP PR PRN (14:45)
[2020-08-23] MEDS ORDERED: ONDANSETRON 4MG/2ML VIAL IV PRN (14:45)
[2020-08-23] MEDS ORDERED: PERCOCET 5MG/325MG TAB PO PRN (14:45)
[2020-08-23] MEDS ORDERED: ACETAMINOPHEN TAB 650MG DOSE (2X325MG) PO PRN (14:45)
[2020-08-23] MEDS ORDERED: LEVALBUTEROL 1.25 MG/0.5 ML CONCENTRATE NEB NEB PRN (14:45)
[2020-08-23 15:13] LABS: LDH LACTATE DEHYDROGENASE 276 U/L (87-241)
[2020-08-23 15:48] LABS: SOURCE, BODY FLUID pH PLEURAL
[2020-08-23 15:50] LABS: PH BODY FLUID > 7.800 UNITS (NOT ESTABLISHED)
[2020-08-23] MEDS: KCL 20MEQ IN D5/NS 1000ML 1,000 ML IV SCH (15:50)
[2020-08-23] MEDS: KETOROLAC 30 MG/ML 1ML VIAL IV SCH ×2 (15:50→21:21)
[2020-08-23 16:09] LABS: AMYLASE, BODY FLUID 14 U/L (NOT ESTABLISHED); CHOLESTEROL, BODY FLUID < 50 MG/DL (NOT ESTABLISHED); LDH, BODY FLUID 56 U/L (NOT ESTABLISHED); SOURCE, BODY FLUID AMYLASE PLEURAL; SOURCE, BODY FLUID CHOL PLEURAL; SOURCE, BODY FLUID GLUCOSE PLEURAL; SOURCE, BODY FLUID LDH PLEURAL; SOURCE, BODY FLUID TOT PROTEIN PLEURAL; SOURCE, BODY FLUID TRIG PLEURAL; TOTAL PROTEIN, BODY FLUID 0.9 G/DL (NOT ESTABLISHED); TRIGLYCERIDE, BODY FLUID 16 MG/DL (NOT ESTABLISHED)
[2020-08-23 16:10] LABS: SOURCE, BODY FLUID PLEURAL; SOURCE, BODY FLUID ALBUMIN PLEURAL
[2020-08-23 16:12] LABS: APPEARANCE, BODY FLUID HAZY (CLEAR); PLEURAL FL COLOR YELLOW (COLORLESS)
--- NOTE | 2020-08-23 16:36 | RO ---
OPERATIVE NOTE DATE OF OPERATION: 08/23/2020 PREPROCEDURE DIAGNOSIS: Right pleural effusion secondary to cirrhosis. POSTPROCEDURE DIAGNOSIS: Right pleural effusion secondary to cirrhosis. SURGEON: Kelvin Castro M.D. PROCEDURE: Insertion of chest tube catheter. FINDINGS: The patient has drained over a liter and is still draining at the conclusion of the procedure. Specimens were sent per the requisite are chemistries, hematology, cytologies, and bacteriologies. DESCRIPTION OF PROCEDURE: In the sitting position, the patient was prepped and draped in the usual sterile fashion. The entry site was marked after noting landmarks on the CT scan. The skin was prepped and infiltrated with 1% Lidocaine. Rib was found, incision was made, and a tunnel was created to the rib with a hemostat. The pigtail catheter was then inserted until going from the pleura just over the rib. Stylet was removed and the pigtail catheter activated. The patient drained initially 1000 mL of fluid, which was sent for the requisite for chemistries, cytologies, hematologies, and bacteriologies as noted above. Secured to the chest wall with 2-0 silk suture. The patient tolerated the procedure well and a chest x-ray is pending.
--- NOTE | 2020-08-23 16:55 | CR ---
CONSULTATION DATE: 08/23/2020 REASON FOR CONSULTATION: The patient is seen at the request of Dr. Arevalo for shortness of breath and a large pleural effusion secondary to cirrhotic liver disease. HISTORY OF PRESENT ILLNESS: The patient is a 60-year-old white male who has known cirrhotic liver disease, who has had multiple paracentesis and thoracentesis. He has had two thoracentesis in the past 30 days. He is scheduled for consider of a TIPS procedure on August 27. Over the last four to five days, he has become more progressively short of breath. He has to now sit up to go to sleep. He does not complain of pain. There has been only a slight cough with slight sputum production. There has been no fever, chills, or sweats. There is no dysphagia. He sought attention in the emergency room where he also noted bilateral extremity edema. Shortness of breath is such that he has trouble just walking around his house. Chest x-ray revealed a large pleural effusion, which was confirmed by CT scan. PAST MEDICAL HISTORY: 1. Asthma. 2. Alcoholic liver cirrhosis with recurrent ascites. 3. Thrombocytopenia secondary to his liver cirrhosis 4. Obesity. 5. Hypertension. 6. Osteoarthritis. 7. Diastolic dysfunction. PAST SURGICAL HISTORY: 1. Bilateral inguinal hernia. 2. Right knee arthroscopy. 3. Fourth finger tendon repair. 4. Multiple thoracentesis and paracentesis. ALLERGIES: None. HOME MEDICATIONS: - Flovent one puff b.i.d. - Lasix 60 mg once daily - lactulose 30 mL once daily - losartan 25 mg once daily - metoprolol 25 mg once daily - omeprazole 40 mg once daily - potassium chloride 10 mEq once daily - Spironolactone 100 mg once daily - tamsulosin 0.4 mg once daily HABITS: Used to smoke cigars. States he stopped drinking last spring, but says that he had drank a bottle a week of hard liquor prior to that. He has done occasional marijuana. TRAVEL HISTORY: He has been to the [facility] and [facility], but not to the [facility]. EXPOSURES: No exposure to tuberculosis. He has four dogs and a cat at home. No birds. FAMILY HISTORY: Father with heart disease. Mother with unknown medical problems. REVIEW OF SYSTEMS: Constitutional: See HPI. Without fever, chills, sweats, or night sweats. Eyes: Had retinal detachment as a teenager in his left eye and he is legally blind in his left eye. Without prior jaundice. Without amaurosis fugax in the right eye. Nose: Has occasional epistaxis with oxygen. Respiratory: See HPI. Cardiac: See HPI. Without prior myocardial infarctions or intermittent claudications. Does note peripheral edema. GI: Without nausea, vomiting, diarrhea, constipation, melena, hematochezia, or hematemesis. No abdominal pain. When he collects fluid in his abdomen, it becomes enlarged and tense. Does not complain of that today. : Without dysuria, hematuria, or prior renal stones. Endocrine: Without diabetes or thyroid disease. Psychiatric: Without pathological anxieties, psychosis, or depressions. Neurologic: Without paresthesias, paralysis, or prior seizures or strokes. PHYSICAL EXAMINATION: GENERAL APPEARANCE: Obese white male in moderate distress with shortness of breath. VITAL SIGNS: Temperature is 97.1, heart rate is 96 in sinus rhythm, respiratory rate is 28 with the use of neck accessory muscles. He is 93% saturated on 2 liters nasal cannula. His blood pressure is 166/66. HEENT: Eyes with pupils equal, round, and reactive to light. Extraocular movements intact. Sclerae nonicteric. Nose without deformity. Mouth shows mucous membranes to be pink and moist. Lips and gums without lesions. There is no thrush. NECK: Supple. There is no jugular venous distention. No subcutaneous emphysema. Trachea is midline. There is no thyromegaly or carotid bruits. He has 2+ carotid upstrokes. There is no lymphadenopathy. LUNGS: Show markedly decreased breath sounds with a dull percussion note on the right side. There is E:A egophony on the right side. Left side shows inspiratory crackles at the end of inspiration. Percussion note is full to the diaphragm on the left. CARDIAC: Without murmurs, clicks, gallops, or rubs. I cannot feel his PMI. S1, S2 are normal. His heart sounds are distant. He has a very large barrel chest. ABDOMEN: Soft and nontender. Bowel sounds are positive. There is no hepatomegaly that I can appreciate through his obesity. There is no CVA tenderness. EXTREMITIES: Show 1 to 2+ pretibial edema. No calf tenderness. No differential swelling of the upper extremities. SKIN: Warm, dry, and perfused without cyanosis or mottling, including that of the nail beds and knees. NEUROLOGIC: Shows II through XII intact. Normal gross motor, gross sensation intact. Gait is not tested. PSYCHIATRIC: Shows him to be awake, alert, and oriented x3 with appropriate mood and affect and conversational. INVESTIGATIONS: His white count is 3.7 with hemoglobin and hematocrit of 10.7 and 33.5. His platelet count is 58,000. Differential shows 65% neutrophils, 15% lymphocytes, and 14% monocytes. There are no immature forms and no toxic granulations. His chemistries show normal electrolytes with a BUN and creatinine of 12 and 1.02 with potassium 3.7. Calcium is 8.4 with an albumin of 2.3. AST and ALT are 70 and 44 respectively. His PT/INR is 17.5 and 1.4 respectively. His chest x-ray shows nearly complete opacification of the lower right hemithorax. This is confirmed on CT scan. There is no pericardial effusion. I see no masses underneath. He has very little, if any, ascites; but he does have a lumpy, bumpy, and knobbly liver consistent with cirrhosis. IMPRESSION: 1. Pleural effusion secondary #2. 2. Cirrhosis with ascites. 3. Thrombocytopenia secondary to cirrhosis. 4. Asthma. 5. Diastolic dysfunction. 6. Obesity. 7. Hypertension. 8. Osteoarthritis. PLAN AND DISCUSSION: His MELD score is 20 using the chemistries and INR from today. That gives him a 25% mortality in the next 90 days. His pleural effusion is no doubt secondary to his cirrhosis. As he is going to be considered for a transjugular intrahepatic portosystemic shunt (TIPS) procedure, I will drain him with a pigtail catheter rather than place a PleurX catheter at this point in time. It is my hope that the TIPS procedure will obviate the PleurX catheter and relieve his ascites and his pleural effusion. We will send the specimens off for all the requisite studies including cytologies, hematologies, chemistries, and bacteriologies.
--- NOTE | 2020-08-23 17:13 | REP ---
INDICATION: pleural effusion COMPARISON: 08/23/2020 at 11:23 a.m. TECHNIQUE: PA and lateral. FINDINGS: Patient is status post pigtail chest tube catheter at the right base and the right pleural effusion is moderately decreased. Remainder of the examination is essentially unchanged. IMPRESSION: Newly placed pigtail catheter at the right lung base with decreased pleural fluid. <Electronically signed by Jose Qureshi > 08/23/20 [id number]
[2020-08-23] MEDS ORDERED: LIDOCAINE 1% MDV 20ML VIAL IM ONE (18:30)
[2020-08-23] MEDS: FLUTICASONE HFA 44 MCG 10.6GM INHALER (FLOVENT) INH SCH (20:00)
[2020-08-23] MEDS: LEVALBUTEROL 1.25 MG/0.5 ML CONCENTRATE NEB NEB SCH (20:00)
[2020-08-23] MEDS: DOCUSATE SODIUM 100MG CAPSULE PO SCH (21:20)
[2020-08-23] MEDS: HEPARIN SOD (PORCINE) 5000UNITS/ML 1ML VIAL/SYRINGE SC SCH (21:21)
[2020-08-24] VITALS (12 sets, daily range): BP systolic 90–116; BP diastolic 52–68
[2020-08-24] MEDS: LEVALBUTEROL 1.25 MG/0.5 ML CONCENTRATE NEB NEB SCH ×4 (04:30→20:00)
[2020-08-24] MEDS: KETOROLAC 30 MG/ML 1ML VIAL IV SCH ×4 (04:34→22:56)
[2020-08-24 05:55] LABS: HEMATOCRIT 30.5 % (42.0-52.0); HEMOGLOBIN 9.6 g/dl (13.5-17.5); MEAN CORPUSCULAR HEMOGLOBIN 32.8 pg (27.0-33.0); MEAN CORPUSCULAR HGB CONC 31.5 g/dl (32.0-36.5); MEAN CORPUSCULAR VOLUME 104.1 fl (80.0-96.0); RED BLOOD COUNT 2.93 10^6/uL (4.30-6.10); WHITE BLOOD COUNT 4.5 10^3/uL (4.0-10.0)
[2020-08-24 05:58] LABS: PLATELET COUNT, AUTOMATED 44 10^3/uL (150-450)
[2020-08-24] MEDS: KCL 20MEQ IN D5/NS 1000ML 1,000 ML IV SCH (05:58)
[2020-08-24 06:33] LABS: ALBUMIN 1.9 GM/DL (3.2-5.2); ALT/SGPT 37 U/L (12-78); BILIRUBIN,TOTAL 2.7 MG/DL (0.2-1.0); BLOOD UREA NITROGEN 17 MG/DL (7-18); CALCIUM LEVEL 7.6 MG/DL (8.8-10.2); CARBON DIOXIDE LEVEL 29 MEQ/L (21-32); CHLORIDE LEVEL 104 MEQ/L (98-107); CREATININE FOR GFR 1.14 MG/DL (0.70-1.30); GLOMERULAR FILTRATION RATE > 60.0 (>49); GLUCOSE, FASTING 93 MG/DL (70-100); POTASSIUM SERUM 4.2 MEQ/L (3.5-5.1); SODIUM LEVEL 137 MEQ/L (136-145); TOTAL PROTEIN 5.3 GM/DL (6.4-8.2)
[2020-08-24] MEDS: FLUTICASONE HFA 44 MCG 10.6GM INHALER (FLOVENT) INH SCH ×2 (08:24→21:57)
--- NOTE | 2020-08-24 08:26 | REP ---
INDICATION: pleural effusion COMPARISON: 08/23/2020 and 4:13 p.m. TECHNIQUE: PA and lateral. FINDINGS: Pigtail catheter at the right base remains stable and right pleural effusion along with basilar opacity is considerably improved and near completely resolved. Left hemithorax is clear. Mediastinum and cardiac silhouette are within normal limits. IMPRESSION: 1. Improved aeration and appearance to the right hemithorax with near complete resolution of the pleural effusion and right basilar opacities. 2. No new acute process appreciated. <Electronically signed by Jose Qureshi > 08/24/20 [id number]
[2020-08-24] MEDS: METOPROLOL SUCC *XL* 25MG TAB (TopROL *XL*) PO SCH ×2 (09:00→09:13)
[2020-08-24] MEDS: LOSARTAN 25 MG TAB PO SCH ×2 (09:00→09:11)
[2020-08-24] MEDS ORDERED: FUROSEMIDE 20 MG TAB PO SCH (09:00)
[2020-08-24] MEDS: MOM 30ML SUSPENSION UDC PO SCH (09:00)
[2020-08-24] MEDS ORDERED: SPIRONOLACTONE 50 MG TAB PO SCH (09:00)
[2020-08-24] MEDS: DOCUSATE SODIUM 100MG CAPSULE PO SCH ×2 (09:10→20:26)
[2020-08-24] MEDS: LACTULOSE 20 GM/30 ML SYRUP UD PO SCH (09:10)
[2020-08-24] MEDS: OMEPRAZOLE 20 MG CAP PO SCH (09:11)
[2020-08-24] MEDS: PANTOPRAZOLE 40MG TAB (PROTONIX) PO SCH (09:12)
[2020-08-24] MEDS: TAMSULOSIN 0.4 MG CAP PO SCH (09:12)
[2020-08-24] MEDS: MULTIVITAMINS/MINERALS THERAP 1 TAB PO SCH (09:12)
[2020-08-24] MEDS: POTASSIUM CHLORIDE 10 MEQ SR TABLET PO SCH (09:12)
[2020-08-24] MEDS: HEPARIN SOD (PORCINE) 5000UNITS/ML 1ML VIAL/SYRINGE SC SCH (09:13)
--- NOTE | 2020-08-24 09:18 | ECGEPIP ---
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
[2020-08-24] MEDS: FUROSEMIDE 40MG/4ML VIAL (J1940) IV SCH ×2 (09:37→17:16)
--- NOTE | 2020-08-24 12:44 | IPN ---
PROGRESS NOTE DATE: 08/24/2020 Mr. Okeefe is breathing a whole lot better today and is sitting up comfortably in a chair. His vital signs show a maximum temperature of 98.8 with a heart rate that ranges between 78-83 in a sinus rhythm, respiratory rate that is constant at 18, who is 94%-95% saturated on 2 liters nasal cannula, and his blood pressure is ranging between 116/66 to 102/60. His intake and output for the past 24 hours has been recorded as 1315 in and 6125 out, for a negativity of 4800 mL. He put 6000 mL out his chest tube yesterday and 1455 in the last 12 hours. His weight today is 109 kg compared to 113 kg yesterday. PHYSICAL EXAMINATION: His lungs show equal breath sounds on either side. I hear some faint crackles and inspiratory rales in the right lower hemithorax. There is to E-to-A egophony. Percussion note is full to the diaphragm. Cardiac exam is without murmurs, clicks, gallops, or rubs. I cannot feel his point of maximal impulse (PMI). S1 and S2 are normal. Abdomen is soft and nontender. Bowel sounds are positive. He is tympanitic and slightly distended. I cannot appreciate hepatomegaly through his obesity, and there is no costovertebral angle (CVA) tenderness. Extremities show 1+ pretibial edema. No calf tenderness, no differential swelling of the upper extremities. Skin is warm, dry, and perfused without cyanosis or mottling, including that of the nailbeds and knees. Neck is supple. There is no jugular venous distention. No subcutaneous emphysema. Trachea is midline. Mouth shows the mucous membranes to be pink and moist. Lips and commissures without lesions. No thrush. Eyes show his pupils to be equal and reactive. Extraocular muscles intact. Sclerae anicteric. Neurologic shows II-XII intact. Normal gross motor, gross sensation intact. Gait is not tested. Psychiatric shows him to be awake, alert, and oriented times three with appropriate mood and affect and conversational. His white count today is 4.5 with a hemoglobin and hematocrit of 9.6 and 30.5, slightly down from 10.7 and 33.5 yesterday. Platelet count is 44, down from 58 yesterday. His electrolytes are normal with a BUN and creatinine of 17 and 1.4, glucose of 93, and a calcium of 7.6 with an albumin of 1.9, which is down from 2.3 yesterday. AST and ALT are 63 and 37, respectively. His fluids came back with a pH of greater than 7.8 with a glucose of 117 and an LDH of 56 with a corresponding serum LDH of 275. He has 206 white cells, 92% of which are mononuclear lymphocytes, and 7 are neutrophils. This definitely looks to be a chronic transudative effusion secondary to his liver cirrhosis. His chest x-ray shows his lung fully expanded to the chest wall. Costophrenic angles are sharp. There is a diffuse haze in the right lower hemithorax, which I suspect is secondary to post expansion pulmonary edema, but it does not look particularly infiltrative. I do not see it on the lateral film. It may be secondary to his obesity. IMPRESSION: 1. Right-sided pleural effusion secondary to #2, cirrhosis with ascites. 2. Thrombocytopenia secondary to the cirrhosis. 3. Asthma. 4. Diastolic dysfunction. 5. Obesity. 6. Hypertension. 7. Osteoarthritis. PLAN AND DISCUSSION: I have spoken with Dr. Arevalo of the hospitalist service. I do think we need to aggressively treat his cirrhosis with increased diuresis and albumin if we are to be able to remove his pigtail catheter. He is due for a consideration of a transjugular intrahepatic portosystemic shunt (TIPS) procedure on August 27, but I am not sure if the procedure is going to be done at that point in time. Certainly if his TIPS procedure is successful, it could obviate his pleural effusion. I do not particularly want to put a PleurX catheter in him at this point in time, as it will only nutritionally deplete him.
--- NOTE | 2020-08-24 13:13 | IPNPDOC ---
Date Seen The patient was seen on 08/24/20. Progress Note SUBJECTIVE: 1550 mL at bedside canister to pigtail catheter, improved SOB. Improved CXR. Started diuresis and albumin Q8H. Denies chest pain, n/v/d. OBJECTIVE: PHYSICAL EXAMINATION: VITAL SIGNS: See below GENERAL APPEARANCE: NAD, resting in bed. AAOx3 HEENT: No nasal flaring or tracheal deviation. No JVD. Thick neck. Moist mucous membranes. Poor dentition CARDIOVASCULAR: S1, S2, regular rate rhythm. BACK: right side pigtail catheter entering posterior lung LUNGS: improved breath sounds right mid, lower lung, no W/R/R ABDOMEN: Obese, distended without fluid wave, positive bowel sounds 4 quadrants. No rebound or guarding. No CVA tenderness Dullness to percussion EXTREMITIES: 2-3+ pitting edema to upper thighs LABORATORY DATA: See below. MICROBIOLOGY: Please see below. IMAGING: CXR 08/24/20: 1. Improved aeration and appearance to the right hemithorax with near complete resolution of the pleural effusion and right basilar opacities. 2. No new acute process appreciated. CXR 08/23/20: moderate to large right pleural effusion increased from prior examination with presumed underlying pulmonary pathology ECHOCARDIOGRAM 03/12/2020: 1. Normal left ventricle internal dimensions and wall thickness. Normal regional LV wall motion and wall thickening. Normal LV systolic function. LVEF 65% by visual estimate. Grade 1 LV diastolic dysfunction (impaired relaxation filling pattern). Normal left atrial size. 2. Moderate aortic valve sclerosis of a 3-cuspid aortic valve. Trace aortic regurgitation. No aortic stenosis. 3. Abbreviated pulmonary acceleration time suggestive of mild elevation of pulmonary artery systolic pressure. 4. Otherwise normal appearing echocardiogram Doppler findings. ASSESSMENT: 60-year-old male with history of alcoholic liver cirrhosis with decompensated liver failure and recurrent ascites and pleural effusions, hx of thoracentesis a nd paracentesis admitted for recurrent right side pleural effusion 2/2 to decompensated liver cirrhosis requiring pleural drainage. PLAN: Recurrent right side pleural effusion 2/2 to decompensated liver cirrhosis, s/p pigtail catheter insertion -Currently 94% on 2 L NC. -1550 mL fluid removed thus far -CXR: improved, see above -Started IV lasix BID, albumin Q8hrs -Continue to monitor on tele, close I&O, fluid restriction -If BP drops, can give midodrine- has required in the past -C/w medications below for liver cirrhosis -CT surgery following Acute decompensated liver cirrhosis with recurrent ascites, portal HTN and pleural effusion -No abd discomfort, slightly distended abd, no fluid wave- not sending for paracentesis -VS stable aside from O2 -AST/ALT are baseline for patient -C/w home spironolactone, lasix BID, lactulose, albumin Q8H, fluid restriction, daily weights -TIPS procedure scheduled for 08/27/19- will f/u with Dr. Waters on 07/26/20 to discuss his current admission and see if we can coordinate to do inpatient possibly -New patient appt with GI for for mid August 2020 -Daily CMP Anasarca/ third spacing 09/24 to decompensated liver cirrhosis with portal hypertension -complicated by recurrent ascites and pleural effusions -C/w treatment, f/u above above Hypoalbuminemia secondary to alcoholic liver cirrhosis -C/w treatment above, albumin Q8H until albumin >2 History of Alcohol abuse -Last drink early 2019 Chronic pancytopenia secondary to liver cirrhosis -Baseline CBC -No signs of active bleeding. -No indication for blood transfusion -CBC daily Macrocytic anemia secondary to liver disease -Baseline CBC -No acute indication for blood transfusion. -No signs of active GI bleeding Hypokalemia, chronic -C/w daily supplement Coagulopathy due to etoh liver disease -No active bleeding Hyperbilirubinemia due to ETOH liver disease, decompensated -F/u with PCP, GI GI px -PPI DVT px. -SCD, teds DISPOSITION: CT surgery following. F/u PT/OT. Plan is discharge home when appropriate. VS, I&O, 24H, Fishbone Vital Signs/I&O Vital Signs Date Time Temp Pulse Resp B/P (MAP) Pulse Ox O2 Delivery O2 Flow Rate FiO2 08/24/20 12:00 97.7 77 19 110/62 (78) 94 Room Air 08/24/20 08:00 2.0 08/23/20 16:00 95 I&O- Last 24 Hours up to 6 AM 08/24/20 05:59 Intake Total 2065 ml Output Total 6125 ml Balance -4060 ml Laboratory Data 24H LABS Laboratory Tests 2 08/23/20 15:10: Body Fluid pH > 7.800, Body Fluid pH Source PLEURAL, Body Fluid WBC (Auto) 206H, Body Fluid RBC (Auto) 3, Body Fluid Mononuclear Cells % Auto 92.3H, Fluid Polymorphonuclear Cell % Auto 7.7H, Body Fluid Glucose Source PLEURAL, Body Fluid Glucose 117, Body Fluid Protein Source PLEURAL, Body Fluid Total Protein 0.9, Body Fluid Albumin Source PLEURAL, Body Fluid Albumin 0.4, Body Fluid LDH Source PLEURAL, Body Fluid Lactate Dehydrogenase 56, Body Fluid Amylase Source PLEURAL, Body Fluid Amylase 14, Body Fluid Cholesterol < 50, Body Fluid Cholesterol Source PLEURAL, Body Fluid Triglyceride Source PLEURAL, Body Fluid Triglycerides 16, Pleural Fluid Source PLEURAL, Pleural Fluid Color YELLOW, Pleural Fluid Appearance HAZY 08/24/20 05:31: Nucleated Red Blood Cells % (auto) 0.0, Anion Gap 4L, Glomerular Filtration Rate > 60.0, Calcium Level 7.6L, Total Bilirubin 2.7H, Aspartate Amino Transf (AST/SGOT) 63H, Alanine Aminotransferase (ALT/SGPT) 37, Alkaline Phosphatase 166H, Total Protein 5.3L, Albumin 1.9L, Albumin/Globulin Ratio 0.6 CBC/BMP Laboratory Tests 08/24/20 05:31 Microbiology Microbiology 08/23/20 Acid Fast Stain, Received Pending 08/23/20 Mycobacterial Culture, Received Pending 08/23/20 Fungal Smear, Received Pending 08/23/20 Fungal Culture, Received Pending 08/23/20 Gram Stain - Final, Resulted 08/23/20 Anaerobic Culture, Resulted Pending 08/23/20 Body Fluid Culture, Received Pending Current Medications Current Medications Medications (Trade) Dose Ordered Sig/Dari Route PRN Reason Start Time Stop Time Status Last Admin Dose Admin Acetaminophen (Tylenol Tab) 650 mg Q6HP PRN PO T > 101.5 or GÓMEZ 08/23/20 14:45 Acetaminophen/ Hydrocodone Bitart (Ida, Anexsia 5/325) 1 tab Q3H PRN PO MILD PAIN (PS 1-4) 08/23/20 14:45 Albuterol Sulfate (Proventil, Ventolin Hfa) 2 puff RQID PRN INH SOB/WHEEZING 08/23/20 13:00 Bisacodyl (Dulcolax Suppository) 10 mg Q4HP PRN AK CONSTIPATION 08/23/20 14:45 Docusate Sodium (Colace) 100 mg BID PO 08/23/20 21:00 1/2/21 09:10 Fluticasone Propionate (Flovent Hfa 44 Mcg) 1 puff RBID INH 08/23/20 20:00 08/24/20 08:24 Furosemide (LASIX injection) 40 mg BID@09,17 IV 08/24/20 09:00 08/24/20 09:37 Furosemide (Lasix) 60 mg DAILY PO 08/24/20 09:00 08/24/20 09:12 DC Heparin Sodium (Porcine) (Heparin) 5,000 units Q12H SC 08/23/20 21:00 08/24/20 09:13 Home Med (Med Rec Complete!) ASDIRECTED XX 08/23/20 12:45 08/23/20 12:39 DC Ketorolac Tromethamine (ToRADol) 30 mg Q6H IV 08/23/20 16:00 08/28/20 15:59 08/24/20 09:14 Lactulose (Cephulac) 30 ml DAILY PO 08/24/20 09:00 08/24/20 09:10 Levalbuterol HCl (Xopenex Neb) 1.25 mg Q2HP PRN NEB WHEEZING 08/23/20 14:45 Levalbuterol HCl (Xopenex Neb) 1.25 mg RQ6H NEB 08/23/20 20:00 08/24/20 08:25 Losartan Potassium (Cozaar) 25 mg DAILY PO 08/24/20 09:00 Magnesium Hydroxide (Milk Of Magnesia) 30 ml DAILY PO 08/24/20 09:00 Metoprolol Succinate (TopROL XL) 25 mg DAILY PO 08/24/20 09:00 Multivitamins (Theragram-M) 1 tab DAILY PO 08/24/20 09:00 08/24/20 09:12 Omeprazole (PriLOSEC) 40 mg DAILY PO 08/24/20 09:00 08/24/20 09:11 Ondansetron HCl (ZOFRAN INJection) 4 mg Q4HP PRN IV NAUSEA 08/23/20 14:45 Oxycodone/ Acetaminophen (Percocet 5mg/ 325mg Tablet) 1 tab Q4H PRN PO MODERATE PAIN (PS 5-7) 08/23/20 14:45 Oxycodone/ Acetaminophen (Percocet 5mg/ 325mg Tablet) 2 tab Q4H PRN PO SEVERE PAIN (PS 8-10) 08/23/20 14:45 Pantoprazole Sodium (Protonix) 40 mg DAILY PO 08/24/20 09:00 08/24/20 09:12 Potassium Chloride/Dextrose/ Sod Cl 1,000 ml @ 75 mls/hr [id number] IV 08/23/20 14:45 08/24/20 09:18 DC 08/24/20 05:58 Potassium Chloride (Micro-K Extencaps) 10 meq DAILY PO 08/24/20 09:00 08/24/20 09:12 Spironolactone (Aldactone) 100 mg DAILY PO 08/24/20 09:00 08/24/20 09:12 Tamsulosin HCl (Flomax) 0.4 mg DAILY PO 08/24/20 09:00 08/24/20 09:12 Allergies Coded Allergies: POLLEN (Verified Allergy, Unknown, 05/22/20) Martha Arevalo MD Aug 24, 2020 13:13
[2020-08-25] VITALS (14 sets, daily range): BP systolic 95–162; BP diastolic 50–162
[2020-08-25] MEDS: LEVALBUTEROL 1.25 MG/0.5 ML CONCENTRATE NEB NEB SCH ×4 (01:54→22:15)
[2020-08-25] MEDS: KETOROLAC 30 MG/ML 1ML VIAL IV SCH ×2 (04:02→09:36)
[2020-08-25 05:52] LABS: HEMATOCRIT 29.7 % (42.0-52.0); HEMOGLOBIN 9.6 g/dl (13.5-17.5); MEAN CORPUSCULAR HEMOGLOBIN 33.3 pg (27.0-33.0); MEAN CORPUSCULAR HGB CONC 32.3 g/dl (32.0-36.5); MEAN CORPUSCULAR VOLUME 103.1 fl (80.0-96.0); PLATELET COUNT, AUTOMATED 45 10^3/uL (150-450); RED BLOOD COUNT 2.88 10^6/uL (4.30-6.10); WHITE BLOOD COUNT 2.9 10^3/uL (4.0-10.0)
[2020-08-25 06:17] LABS: BILIRUBIN,TOTAL 2.2 MG/DL (0.2-1.0); CALCIUM LEVEL 7.6 MG/DL (8.8-10.2); CREATININE FOR GFR 1.53 MG/DL (0.70-1.30); GLOMERULAR FILTRATION RATE 49.7 (>49); POTASSIUM SERUM 3.7 MEQ/L (3.5-5.1); TOTAL PROTEIN 5.3 GM/DL (6.4-8.2)
[2020-08-25] MEDS: FLUTICASONE HFA 44 MCG 10.6GM INHALER (FLOVENT) INH SCH ×2 (07:33→22:15)
--- NOTE | 2020-08-25 08:16 | REP ---
INDICATION: pleural effusion COMPARISON: 08/24/2020 TECHNIQUE: PA and lateral. FINDINGS: Pigtail catheter at the right base unchanged in position. Minimal residual basilar atelectasis and small residual pleural fluid is suggested. Remainder lung sr are well aerated and relatively clear. No new acute process identified. Mediastinum and cardiac silhouette are normal. Skeletal structures are intact. IMPRESSION: Very minimal residual basilar atelectasis and small pleural oral effusion suggested. Findings are overall significantly improved from prior examinations. <Electronically signed by Jose Qureshi > 08/25/20 [id number]
[2020-08-25] MEDS ORDERED: FUROSEMIDE 40MG/4ML VIAL (J1940) IV SCH (09:00)
[2020-08-25] MEDS: MOM 30ML SUSPENSION UDC PO SCH (09:33)
[2020-08-25] MEDS: LACTULOSE 20 GM/30 ML SYRUP UD PO SCH (09:33)
[2020-08-25] MEDS: TAMSULOSIN 0.4 MG CAP PO SCH (09:34)
[2020-08-25] MEDS: MULTIVITAMINS/MINERALS THERAP 1 TAB PO SCH (09:34)
[2020-08-25] MEDS: OMEPRAZOLE 20 MG CAP PO SCH (09:35)
[2020-08-25] MEDS: DOCUSATE SODIUM 100MG CAPSULE PO SCH ×2 (09:35→20:03)
[2020-08-25] MEDS: PANTOPRAZOLE 40MG TAB (PROTONIX) PO SCH (09:35)
[2020-08-25] MEDS: POTASSIUM CHLORIDE 10 MEQ SR TABLET PO SCH (09:36)
--- NOTE | 2020-08-25 12:48 | IPNPDOC ---
Date Seen The patient was seen on 08/25/20. Progress Note SUBJECTIVE: Since placement of right pleural catheter, patient has had >8.5 L drained out. Cr increased to 1.5 from wnl, toradol stopped. Heparin stopped 2/2 to worsening thrombocytosis, no s/s of bleeding or rash. Denies increased SOB, chest pain, n/v/d. OBJECTIVE: PHYSICAL EXAMINATION: VITAL SIGNS: See below GENERAL APPEARANCE: NAD, resting in bed. AAOx3 HEENT: No nasal flaring or tracheal deviation. No JVD. Thick neck. Moist mucous membranes. Poor dentition CARDIOVASCULAR: S1, S2, regular rate rhythm. BACK: right side pigtail catheter entering posterior lung LUNGS: improved breath sounds right mid, lower lung, no W/R/R ABDOMEN: Obese, distended without fluid wave, positive bowel sounds 4 quadrants. No rebound or guarding. No CVA tenderness Dullness to percussion EXTREMITIES: 2-3+ pitting edema to upper thighs LABORATORY DATA: See below. MICROBIOLOGY: Please see below. IMAGING: CXR 08/25/19: Very minimal residual basilar atelectasis and small pleural oral effusion mendoza ggested. Findings are overall significantly improved from prior examinations. CXR 08/24/20: 1. Improved aeration and appearance to the right hemithorax with near complete resolution of the pleural effusion and right basilar opacities. 2. No new acute process appreciated. CXR 08/23/20: moderate to large right pleural effusion increased from prior examination with presumed underlying pulmonary pathology ECHOCARDIOGRAM 03/12/2020: 1. Normal left ventricle internal dimensions and wall thickness. Normal regional LV wall motion and wall thickening. Normal LV systolic function. LVEF 65% by visual estimate. Grade 1 LV diastolic dysfunction (impaired relaxation filling pattern). Normal left atrial size. 2. Moderate aortic valve sclerosis of a 3-cuspid aortic valve. Trace aortic regurgitation. No aortic stenosis. 3. Abbreviated pulmonary acceleration time suggestive of mild elevation of pulmonary artery systolic pressure. 4. Otherwise normal appearing echocardiogram Doppler findings. ASSESSMENT: 60-year-old male with history of alcoholic liver cirrhosis with decompensated liver failure and recurrent ascites and pleural effusions, hx of thoracentesis and paracentesis admitted for recurrent right side pleural effusion 2/2 to decompensated liver cirrhosis requiring pleural drainage. PLAN: Recurrent right side pleural effusion 2/2 to decompensated liver cirrhosis, s/p pigtail catheter insertion -Currently 94% on RA -Total of 8.5 L removed from chest tube alone. -CXR: improved, see above -IV lasix BID, albumin Q6hrs -Continue to monitor on tele, close I&O, fluid restriction -If BP drops, can give midodrine- has required in the past -C/w medications below for liver cirrhosis -CT surgery following Acute decompensated liver cirrhosis with recurrent ascites, portal HTN and pleural effusion -No abd discomfort, slightly distended abd, no fluid wave- not sending for paracentesis -VS stable aside from O2 -AST/ALT are baseline for patient -Holding spironolactone while aggressively diuresing with IV lasix BID -C/w lasix BID, lactulose, albumin Q6H, fluid restriction, daily weights -TIPS procedure scheduled for 08/27/19- will f/u with Dr. Waters on 07/26/20 to discuss his current admission and see if we can coordinate to do inpatient possibly -New patient appt with GI for for mid August 2020 -Daily CMP Acute kidney injury likely 2/2 to toradol -Cr baseline is wnl, today 1.53 -C/w diuresis, stopped toradol -Nephrology consulted Anasarca/ third spacing 2/2 to decompensated liver cirrhosis with portal hypertension -complicated by recurrent ascites and pleural effusions -C/w treatment, f/u above above Hypoalbuminemia secondary to alcoholic liver cirrhosis -C/w treatment above, albumin Q6H History of Alcohol abuse -Last drink early 2019 Chronic pancytopenia /chronic thrombocytopenia / macrocytic anemia secondary to liver cirrhosis -PLTs dropped to 45, lower than baseline in 70's, H/H stable -No signs of active bleeding, No indication for blood transfusion -CBC daily -Stopped heparin product Hypokalemia, chronic -C/w daily supplement Hyperbilirubinemia due to ETOH liver disease, decompensated -F/u with GI GI px -PPI DVT px. -SCD, teds DISPOSITION: CT surgery, nephrology following. Plan is to talk to Dr. Waters in AM to discuss upcoming TIPS procedure. Plan is discharge home when appropriate. VS, I&O, 24H, Fishbone Vital Signs/I&O Vital Signs Date Time Temp Pulse Resp B/P (MAP) Pulse Ox O2 Delivery O2 Flow Rate FiO2 1/3/21 12:00 97.2 75 15 99/162 (141) 94 Room Air 08/24/20 08:00 2.0 08/23/20 16:00 95 I&O- Last 24 Hours up to 6 AM 08/25/20 06:00 Intake Total 1420.0 ml Output Total 4355 ml Balance -2935.0 ml Laboratory Data 24H LABS Laboratory Tests 2 08/25/20 05:25: Nucleated Red Blood Cells % (auto) 0.0, Immature Platelet Fraction 4.0, Anion Gap 5L, Glomerular Filtration Rate 49.7, Calcium Level 7.6L, Total Bilirubin 2.2H, Aspartate Amino Transf (AST/SGOT) 58H, Alanine Aminotransferase (ALT/SGPT) 35, Alkaline Phosphatase 182H, Total Protein 5.3L, Albumin 2.0L, Albumin/Globulin Ratio 0.6 CBC/BMP Laboratory Tests 08/25/20 05:25 Microbiology Microbiology 08/23/20 Acid Fast Stain, Received Pending 08/23/20 Mycobacterial Culture, Received Pending 08/23/20 Fungal Smear, Received Pending 08/23/20 Fungal Culture, Received Pending 08/23/20 Gram Stain - Final, Complete 08/23/20 Anaerobic Culture - Final, Complete 08/23/20 Body Fluid Culture - Final, Complete Current Medications Current Medications Medications (Trade) Dose Ordered Sig/Dari Route PRN Reason Start Time Stop Time Status Last Admin Dose Admin Acetaminophen (Tylenol Tab) 650 mg Q6HP PRN PO T > 101.5 or GÓMEZ 08/23/20 14:45 Acetaminophen/ Hydrocodone Bitart (Kake, Anexsia 5/325) 1 tab Q3H PRN PO MILD PAIN (PS 1-4) 08/23/20 14:45 Albuterol Sulfate (Proventil, Ventolin Hfa) 2 puff RQID PRN INH SOB/WHEEZING 08/23/20 13:00 Bisacodyl (Dulcolax Suppository) 10 mg Q4HP PRN [place] CONSTIPATION 08/23/20 14:45 Docusate Sodium (Colace) 100 mg BID PO 08/23/20 21:00 08/25/20 09:35 Fluticasone Propionate (Flovent Hfa 44 Mcg) 1 puff RBID INH 08/23/20 20:00 08/25/20 07:33 Furosemide (LASIX injection) 30 mg BID@09,17 IV 08/25/20 09:00 08/25/20 09:00 Furosemide (LASIX injection) 40 mg BID@,17 IV 08/24/20 09:00 08/25/20 08:01 DC 08/24/20 17:16 Furosemide (Lasix) 60 mg DAILY PO 08/24/20 09:00 08/24/20 09:12 DC Heparin Sodium (Porcine) (Heparin) 5,000 units Q12H SC 08/23/20 21:00 08/24/20 20:24 DC 08/24/20 09:13 Home Med (Med Rec Complete!) ASDIRECTED XX 08/23/20 12:45 08/23/20 12:39 DC Ketorolac Tromethamine (ToRADol) 30 mg Q6H IV 08/23/20 16:00 08/25/20 10:15 DC 08/25/20 04:02 Lactulose (Cephulac) 30 ml DAILY PO 08/24/20 09:00 08/25/20 09:33 Levalbuterol HCl (Xopenex Neb) 1.25 mg Q2HP PRN NEB WHEEZING 08/23/20 14:45 Levalbuterol HCl (Xopenex Neb) 1.25 mg RQ6H NEB 08/23/20 20:00 08/25/20 07:31 Losartan Potassium (Cozaar) 25 mg DAILY PO 08/24/20 09:00 08/25/20 10:47 DC Magnesium Hydroxide (Milk Of Magnesia) 30 ml DAILY PO 08/24/20 09:00 08/25/20 09:33 Metoprolol Succinate (TopROL XL) 25 mg DAILY PO 08/24/20 09:00 08/25/20 10:49 DC Multivitamins (Theragram-M) 1 tab DAILY PO 08/24/20 09:00 08/25/20 09:34 Omeprazole (PriLOSEC) 40 mg DAILY PO 08/24/20 09:00 08/25/20 09:35 Ondansetron HCl (ZOFRAN INJection) 4 mg Q4HP PRN IV NAUSEA 08/23/20 14:45 Oxycodone/ Acetaminophen (Percocet 5mg/ 325mg Tablet) 1 tab Q4H PRN PO MODERATE PAIN (PS 5-7) 08/23/20 14:45 Oxycodone/ Acetaminophen (Percocet 5mg/ 325mg Tablet) 2 tab Q4H PRN PO SEVERE PAIN (PS 8-10) 08/23/20 14:45 Pantoprazole Sodium (Protonix) 40 mg DAILY PO 08/24/20 09:00 08/25/20 09:35 Potassium Chloride/Dextrose/ Sod Cl 1,000 ml @ 75 mls/hr [id number] IV 08/23/20 14:45 08/24/20 09:18 DC 08/24/20 05:58 Potassium Chloride (Micro-K Extencaps) 10 meq DAILY PO 08/24/20 09:00 08/25/20 09:36 Spironolactone (Aldactone) 100 mg DAILY PO 08/24/20 09:00 08/24/20 20:05 DC 08/24/20 09:12 Tamsulosin HCl (Flomax) 0.4 mg DAILY PO 08/24/20 09:00 08/25/20 09:34 Allergies Coded Allergies: POLLEN (Verified Allergy, Unknown, 05/22/20) Martha Arevalo MD Aug 25, 2020 12:48
--- NOTE | 2020-08-25 16:47 | IPN ---
PROGRESS NOTE DATE: 08/25/2020 SUBJECTIVE: Mr. Okeefe is again sitting up comfortably and breathing well. The pain at the chest tube insertion site is being controlled with oral analgesics. His creatinine has bumped up today and I will discontinue his Toradol. OBJECTIVE: VITAL SIGNS: Show a T-max of 98.8 with a heart rate that ranges between 70 and 88 in sinus rhythm, respiratory rate 16 to 19 without the use of accessory muscle who is 93% to 97% saturated on room air, and his blood pressure is ranging between 100/50 to 129/68. INTAKE AND OUTPUT: Over the past 24 hours has been recorded as 2320 in and 3805 out for negativity of 1500 mL. He has put out 2555 mL in the chest tube and 1250 mL in urine. His weight today is 108 kg compared to 109 kg yesterday. RESPIRATORY: He has equal breath sounds on either side. He has some scattered rhonchi and rales most of which clear with coughing. Percussion notes are full to the diaphragm. CARDIAC: Without murmurs, clicks, gallops, or rubs. I cannot feel his PMI. S1 and S2 are normal. ABDOMEN: Soft, nontender, and tympanitic with positive bowel sounds. I do not appreciate hepatomegaly or CVA tenderness. EXTREMITIES: Show trace pretibial edema. No calf tenderness. No differential swelling of the upper extremities. SKIN: Warm, dry, and perfused without cyanosis or mottling, including that of the nail beds and knees. NECK: Supple. There is no jugular venous distention. No subcutaneous emphysema. Trachea is midline. MOUTH: Shows the mucous membranes to be pink and moist. Lips and gums without lesions and no thrush. EYES: Show his pupils equal and reactive. Extraocular movements are intact. Sclerae nonicteric. NEUROLOGIC: Shows II through XII intact. Normal gross motor, gross sensation intact. Gait is not tested. PSYCHIATRIC: Shows him to be awake, alert, and oriented x3 with appropriate mood and affect and conversational. LABORATORY DATA: His white count today is 2.9 with hemoglobin and hematocrit of 9.6 and 29.7 respectively; essentially unchanged from yesterday. Platelet count is 45,000. Chemistries today show normal electrolytes with a BUN and creatinine increasing to 21 and 1.53 from 17 and 1.14 yesterday. Calcium is 7.6 with a corresponding albumin of 2.0. He is now being given 50 mL of 25% albumin every eight hours and I would recommend that it be increased to every six hours. His total bilirubin is down to 2.2. I discussed his pleural fluid findings yesterday being transudative and monocytic. His chest x-ray today shows his lungs fully expand to the chest wall. There is still a bit of a diffuse haze in the right lower hemithorax, but does not look particularly infiltrative. Chest tube is in good place posteriorly and inferiorly. IMPRESSION: 1. Right-sided pleural effusion secondary to #2. 2. Cirrhosis with ascites. 3. Thrombocytopenia secondary to the cirrhosis. 4. Asthma. 5. Diastolic dysfunction. 6. Obesity. 7. Hypertension. 8. Osteoarthritis. 9. Hypoalbuminemia secondary to his cirrhosis. PLAN AND DISCUSSION: I have discussed his management with Dr. Arevalo of the hospitalist service. I will discontinue the Toradol and recommend increasing his albumin infusions to every six hours. I would also continue to diurese him vigorously even though his creatinine has bumped a bit.
[2020-08-25] MEDS: FUROSEMIDE 40MG/4ML VIAL (J1940) IV SCH (17:42)
--- NOTE | 2020-08-25 20:35 | CR ---
CONSULTATION DATE: 08/25/2020 REQUESTING PHYSICIAN: Martha Arevalo MD CONSULTING PHYSICIAN: Leisa Allen DO REASON FOR CONSULTATION: Diuretic management in this patient with decompensated cirrhosis, large right pleural effusion and acute kidney injury. HISTORY OF PRESENT ILLNESS: Rory Okeefe is previously unknown to me. He is a 60-year-old male with a past medical history of alcoholic liver cirrhosis (last alcoholic drink in spring) and decompensated liver failure with recurrent ascites and recurrent right-sided pleural effusion and other past medical history of diastolic congestive heart failure, chronic thrombocytopenia, hypertension and other comorbid conditions mentioned below. The patient has had a recurrent right pleural effusion which required thoracentesis twice during July, here at [facility]. The patient states that he was having increased shortness of breath over the past several weeks and did a chest x-ray with his primary care provider on August 21 which showed a recurrent and increased right pleural effusion and the patient subsequently came to the emergency room on August 23 for further evaluation. The patient was found to hypoxic and placed on oxygen support and subsequent CT of chest showed a large right pleural effusion with associated collapse of the right lower and right middle lobe and partial collapse of the right upper lobe. The patient subsequently had a chest tube placed on August 23 with vigorous output of more than ten liters in the past two days. The patient was receiving IV Toradol around the clock for pain relief and was also ordered for Lasix for diuresis and his creatinine increased from 1.1 to 1.5 and nephrology evaluation was called for help in the management of fluid overload in this patient with decompensated cirrhosis, recurrent effusion and DONITA. PAST MEDICAL HISTORY: 1. Diastolic congestive heart failure. 2. Alcoholic liver cirrhosis with recurrent ascites. 3. Recurrent right pleural effusion. 4. Chronic thrombocytopenia. 5. Asthma. 6. Hypertension. 7. Osteoarthritis. 8. CKD stage 2. 9. Hypoalbuminemia. 10. Leukopenia. 11. Anemia. PAST SURGICAL HISTORY: 1. Multiple thoracentesis and paracentesis for ascites and for effusion. 2. Bilateral inguinal hernia surgery. 3. Right knee arthroscopy. 4. Left fourth finger tendon repair. SOCIAL HISTORY: Admits to marijuana use and heavy alcoholism in the past (whiskey). Last drink was in spring. Currently on disability. FAMILY HISTORY: He denies a family history of renal failure. He reports heart disease for his father. ALLERGIES: POLLEN. HOME MEDICATIONS: Reviewed. 1. Flovent one puff inhaled b.i.d. 2. Lasix 60 mg p.o. daily. 3. Lactulose 30 mg p.o. daily. 4. Losartan 25 mg p.o. daily. 5. Metoprolol 25 mg p.o. daily. 6. Multivitamin one tab p.o. daily. 7. Omeprazole 40 mg p.o. daily. 8. Potassium chloride 10 mEq p.o. daily. 9. Spironolactone 100 mg p.o. daily. 10. Flomax 0.4 mg p.o. daily. 11. Albuterol p.r.n. REVIEW OF SYSTEMS: Constitutional: He denies fevers or chills. HEENT: He denies headaches, visual tearing, blurring or sore throat. Cardiac: He denies chest pain or palpitations. Respiratory: He reports recurrent right pleural effusion and shortness of breath. Gastrointestinal: He has cirrhosis and ascites. He denies nausea or vomiting. Genitourinary: He denies dysuria or hematuria. Endocrine: He denies diabetes or thyroid problem. Hematologic: He reports anemia, thrombocytopenia. He denies easy bleeding. Musculoskeletal: He denies acute myalgias or arthralgias. Neurologic: He denies seizure or syncope. Psychiatric: He denies anxiety or depression. Skin. He denies any new rashes or ulcers. Remainder of review of systems is negative as per HPI. PHYSICAL EXAMINATION: Vital signs: Temperature 98.0, pulse 84, respiratory rate 16, blood pressure 95/51, saturating 95% on room air. Input yesterday was 2320. Urine output yesterday was 1250. His chest tube put out 2500 yesterday and 6000 the day before and today's output is already more than 1000 mL. Weight in the bed scale today is 108 kg. General: The patient is seen sitting out of bed to the chair, middle-aged male in no apparent distress, awake, alert and oriented x3, interactive and conversational. Extraocular muscles are intact. The sclerae are anicteric. The tongue is moist. The neck is supple. Jugular veins were not elevated while he was sitting upright. Heart sounds are regular, S1, S2. There is leg edema present bilaterally, 1-2+. There are diminished breath sounds on the right. There is a chest tube in place on the right posterior back. Abdomen is soft, does not seem to have much ascites. There are bowel sounds. Skin is warm and dry. Neurologic: He is oriented x3, interactive and conversational at baseline mentation. LABORATORY DATA: Sodium 137, potassium 3.7, bicarbonate 28, BUN 21, creatinine 1.5, albumin 2.0, hemoglobin 9.6, platelets 45, white count 2.9. Chest x-ray done today: Pigtail catheter at the right base, small residual pleural fluid. Remainder of lung sr are clear. INPATIENT MEDICATIONS: 1. He is receiving albumin 25%, 25 gm q.8 hourly. 2. Lasix 30 mg IV b.i.d. 3. Tylenol p.r.n. 4. Dulcolax p.r.n. 5. Docusate 100 mg p.o. b.i.d. 6. Flovent puff inhaled b.i.d. 7. Toradol 30 mg IV q.6 hourly. 8. Lactulose 30 mL p.o. daily. 9. Losartan 25 mg p.o. daily. 10. Metoprolol 25 mg p.o. daily (no dose of Losartan or metoprolol has been administered.) 11. Omeprazole 40 mg p.o. daily. 12. Zofran p.r.n. 13. Percocet p.r.n. 14. Protonix 40 mg p.o. daily. 15. Potassium 10 mEq p.o. daily. 16. Spironolactone 100 mg p.o. daily. 17. Flomax 0.4 mg p.o. daily. PROBLEMS: 1. Acute kidney injury superimposed on CKD stage 2. Creatinine has increased from 1.1 to 1.5. I do not feel that it is secondary to diuresis. Rather, his acute kidney injury is because of IV NSAID. His Toradol has already been discontinued. She takes Losartan at home but we will keep him off of it while he is in the hospital. His renal function may continue to worsen the next couple of days because of lingering IV NSAID effect. 2. Recurrent right pleural effusion. The patient had thoracentesis done twice in July for the right pleural effusion. Interestingly, he seems to have minimal ascites on exam and yet his chest tube has put out more than 10 liters since it was placed. I think this is very suggestive of a pleuroperitoneal leak or connection and his right pleural effusion is highly likely to reoccur because of some sort of leak or connection. The primary team will discuss this with thoracic surgery for their input. I would continue to diurese this patient as he is hypervolemic. His albumin is low at 2.0 and are in for albumin 25% 25 gm q.6 hourly and I have increased the Lasix to 40 mg q8 hourly as well. 3. Decompensated alcoholic cirrhosis. The patient states that he has not had much trouble with ascites recently and that his pressing issue the past month has been a recurrent right pleural effusion. He is being diuresed with albumin support and IV Lasix. I have increased the diuretics. His blood pressures are thus far acceptable and he does not seem to require midodrine. I would keep him off of his home antihypertensives including Losartan and metoprolol as it will be very difficult to diurese him if his blood pressures are soft. 4. Pancytopenia. The patient has anemia, leukopenia and thrombocytopenia possibly related to his cirrhosis. He is on GI prophylaxis and his heparin subcu was stopped by primary team. Iron panel is pending. Thank you for involving me in the care of Mr. Okeefe. I will be happy to follow him along with you.
[2020-08-26] VITALS (12 sets, daily range): BP systolic 94–136; BP diastolic 50–71
[2020-08-26] MEDS: LEVALBUTEROL 1.25 MG/0.5 ML CONCENTRATE NEB NEB SCH ×4 (01:28→19:08)
[2020-08-26] MEDS: FUROSEMIDE 40MG/4ML VIAL (J1940) IV SCH ×3 (02:41→17:09)
[2020-08-26 05:29] LABS: HEMOGLOBIN 9.6 g/dl (13.5-17.5); MEAN CORPUSCULAR VOLUME 103.1 fl (80.0-96.0); RED BLOOD COUNT 2.91 10^6/uL (4.30-6.10); WHITE BLOOD COUNT 3.1 10^3/uL (4.0-10.0)
[2020-08-26 05:38] LABS: PLATELET COUNT, AUTOMATED 42 10^3/uL (150-450)
[2020-08-26 05:54] LABS: ALBUMIN 2.5 GM/DL (3.2-5.2); BILIRUBIN,TOTAL 2.6 MG/DL (0.2-1.0); CALCIUM LEVEL 8.3 MG/DL (8.8-10.2); CREATININE FOR GFR 1.48 MG/DL (0.70-1.30); GLOMERULAR FILTRATION RATE 51.6 (>49); PERCENT SATURATION 27.5 % (19.7-50.0); TOTAL PROTEIN 5.4 GM/DL (6.4-8.2)
--- NOTE | 2020-08-26 08:19 | REP ---
INDICATION: pleural effusion COMPARISON: 08/25/2020 TECHNIQUE: PA and lateral. FINDINGS: Right basilar chest tube in stable position. There is mild stable pleural thickening at the right base which may represent chronic change and or small residual pleural fluid. A miniscule residual right apical pneumothorax is suggested. Mediastinum and cardiac silhouette are normal. Left hemithorax is relatively clear. IMPRESSION: Minimal residual changes at the right base as described above. Miniscule right apical pneumothorax noted. <Electronically signed by Jose Qureshi > 08/26/20 0816
[2020-08-26] MEDS: FLUTICASONE HFA 44 MCG 10.6GM INHALER (FLOVENT) INH SCH ×2 (08:34→19:08)
[2020-08-26] MEDS ORDERED: FUROSEMIDE 20MG/2ML VIAL (J1940) IV ONE (09:15)
[2020-08-26] MEDS: MOM 30ML SUSPENSION UDC PO SCH (09:20)
[2020-08-26] MEDS: LACTULOSE 20 GM/30 ML SYRUP UD PO SCH (09:20)
[2020-08-26] MEDS: DOCUSATE SODIUM 100MG CAPSULE PO SCH ×2 (09:21→20:14)
[2020-08-26] MEDS: POTASSIUM CHLORIDE 10 MEQ SR TABLET PO SCH (09:21)
[2020-08-26] MEDS: TAMSULOSIN 0.4 MG CAP PO SCH (09:21)
[2020-08-26] MEDS: NORCO, ANEXSIA 5/325MG TABLET (HYDROcodone/ACETAMINOPHEN) PO PRN (09:21)
[2020-08-26] MEDS: PANTOPRAZOLE 40MG TAB (PROTONIX) PO SCH (09:21)
[2020-08-26] MEDS: MULTIVITAMINS/MINERALS THERAP 1 TAB PO SCH (09:22)
[2020-08-26] MEDS: OMEPRAZOLE 20 MG CAP PO SCH (09:22)
--- NOTE | 2020-08-26 15:32 | IPNPDOC ---
Date Seen The patient was seen on 08/26/20. Progress Note SUBJECTIVE: Increased output from urine vs. chest tube today. Discussed case with Dr. Waters who will telemed with patient 08/27/20. Cr. further decreased. Denies increased SOB, chest pain, n/v/d. OBJECTIVE: PHYSICAL EXAMINATION: VITAL SIGNS: See below GENERAL APPEARANCE: NAD, resting in bed. AAOx3 HEENT: No nasal flaring or tracheal deviation. No JVD. Thick neck. Moist mucous membranes. Poor dentition CARDIOVASCULAR: S1, S2, regular rate rhythm. BACK: right side pigtail catheter entering posterior lung LUNGS: improved breath sounds right mid, lower lung, no W/R/R ABDOMEN: Obese, distended without fluid wave, positive bowel sounds 4 quadrants. No rebound or guarding. No CVA tenderness Dullness to percussion EXTREMITIES: 2-3+ pitting edema to upper thighs LABORATORY DATA: See below. MICROBIOLOGY: Please see below. IMAGING: CXR 08/26/20: Minimal residual changes at the right base as described above. Miniscule right apical pneumothorax noted. CXR 08/25/20: Very minimal residual basilar atelectasis and small pleural oral effusion suggested. Findings are overall significantly improved from prior examinations. CXR 08/24/20: 1. Improved aeration and appearance to the right hemithorax with near complete resolution of the pleural effusion and right basilar opacities. 2. No new acute process appreciated. CXR 08/23/20: moderate to large right pleural effusion increased from prior examination with presumed underlying pulmonary pathology ECHOCARDIOGRAM 03/12/2020: 1. Normal left ventricle internal dimensions and wall thickness. Normal regional LV wall motion and wall thickening. Normal LV systolic function. LVEF 65% by visual estimate. Grade 1 LV diastolic dysfunction (impaired relaxation filling pattern). Normal left atrial size. 2. Moderate aortic valve sclerosis of a 3-cuspid aortic valve. Trace aortic regurgitation. No aortic stenosis. 3. Abbreviated pulmonary acceleration time suggestive of mild elevation of pulmonary artery systolic pressure. 4. Otherwise normal appearing echocardiogram Doppler findings. ASSESSMENT: 60-year-old male with history of alcoholic liver cirrhosis with decompensated liver failure and recurrent ascites and pleural effusions, hx of thoracentesis and paracentesis admitted for recurrent right side pleural effusion 2/2 to decompensated liver cirrhosis requiring pleural drainage. PLAN: Recurrent right side pleural effusion 2/2 to decompensated liver cirrhosis, s/p pigtail catheter insertion -Remains saturating well on RA -Total of 11,630 mL removed from chest tube alone this admission -CXR: above -IV lasix Q8H albumin Q6hrs -Continue to monitor on tele, close I&O, fluid restriction -If BP drops, can give midodrine- has required in the past -C/w medications below for liver cirrhosis -CT surgery following Acute decompensated liver cirrhosis with recurrent ascites, portal HTN and pleural effusion -No abd discomfort, slightly distended abd, no fluid wave- not sending for paracentesis -VS stable aside from O2 -AST/ALT are baseline for patient -Dr. Waters clarified that appointment with her on 08/27/20 is a new patient appointment only. Will do via telemed while inpatient. She will evaluate to see if patient is candidate for TIPS procedure at that time. -New patient appt with GI for for mid August 2020 -C/w lasix Q8H, lactulose, albumin Q6H, fluid restriction, daily weights -Holding spironolactone currently -Daily CMP Acute kidney injury likely 2/2 to toradol -Cr baseline is wnl, today 1.48- slowly improving -C/w diuresis, stopped toradol -Nephrology following Anasarca/ third spacing 2/2 to decompensated liver cirrhosis with portal hypertension -Complicated by recurrent ascites and pleural effusions -C/w treatment, f/u above above Hypoalbuminemia secondary to alcoholic liver cirrhosis -C/w treatment above, albumin Q6H History of Alcohol abuse -Last drink early 2019 Chronic pancytopenia /chronic thrombocytopenia / macrocytic anemia secondary to liver cirrhosis -PLTs dropped slightly further today to 42, lower than baseline in 70's, H/H stable -No signs of active bleeding, No indication for blood transfusion -CBC daily -Stopped heparin product, not suspecting HIT Hypokalemia, chronic -C/w daily supplement Hyperbilirubinemia due to ETOH liver disease, decompensated -F/u with GI GI px -PPI DVT px. -SCD, teds DISPOSITION: CT surgery, nephrology following. Dr. Waters to evaluate 08/27/19. Plan is discharge home when appropriate. VS, I&O, 24H, Fishbone Vital Signs/I&O Vital Signs Date Time Temp Pulse Resp B/P (MAP) Pulse Ox O2 Delivery O2 Flow Rate FiO2 08/26/20 12:00 98.1 71 18 111/56 (74) 97 Room Air 08/24/20 08:00 2.0 08/23/20 16:00 95 I&O- Last 24 Hours up to 6 AM 08/26/20 06:00 Intake Total 1200.0 ml Output Total 4300 ml Balance -3100.0 ml Laboratory Data 24H LABS Laboratory Tests 2 08/26/20 04:52: Nucleated Red Blood Cells % (auto) 0.0, Anion Gap 6L, Glomerular Filtration Rate 51.6, Calcium Level 8.3L, Iron Level 49L, Total Iron Binding Capacity 178L, Tr ansferrin % Saturation 27.5, Total Bilirubin 2.6H, Aspartate Amino Transf (AST/SGOT) 54H, Alanine Aminotransferase (ALT/SGPT) 33, Alkaline Phosphatase 172H, Total Protein 5.4L, Albumin 2.5#L, Albumin/Globulin Ratio 0.9 CBC/BMP Laboratory Tests 08/26/20 04:52 Microbiology Microbiology 08/23/20 Acid Fast Stain, Received Pending 08/23/20 Mycobacterial Culture, Received Pending 08/23/20 Fungal Smear, Received Pending 08/23/20 Fungal Culture, Received Pending 08/23/20 Gram Stain - Final, Complete 08/23/20 Anaerobic Culture - Final, Complete 08/23/20 Body Fluid Culture - Final, Complete Current Medications Current Medications Medications (Trade) Dose Ordered Sig/Dari Route PRN Reason Start Time Stop Time Status Last Admin Dose Admin Acetaminophen (Tylenol Tab) 650 mg Q6HP PRN PO T > 101.5 or GÓMEZ 08/23/20 14:45 Acetaminophen/ Hydrocodone Bitart (Eldred, Anexsia 5/325) 1 tab Q3H PRN PO MILD PAIN (PS 1-4) 08/23/20 14:45 08/26/20 09:21 Albuterol Sulfate (Proventil, Ventolin Hfa) 2 puff RQID PRN INH SOB/WHEEZING 08/23/20 13:00 Bisacodyl (Dulcolax Suppository) 10 mg Q4HP PRN [place] CONSTIPATION 08/23/20 14:45 Docusate Sodium (Colace) 100 mg BID PO 08/23/20 21:00 08/26/20 09:21 Fluticasone Propionate (Flovent Hfa 44 Mcg) 1 puff RBID INH 08/23/20 20:00 08/26/20 08:34 Furosemide (LASIX injection) 30 mg BID@,17 IV 08/25/20 09:00 08/25/20 12:45 DC 08/25/20 09:00 Furosemide (LASIX injection) 40 mg BID@,17 IV 08/24/20 09:00 08/25/20 08:01 DC 08/24/20 17:16 Furosemide (LASIX injection) 40 mg Q8H IV 08/25/20 17:00 08/26/20 02:41 Furosemide (Lasix) 60 mg DAILY PO 08/24/20 09:00 08/24/20 09:12 DC Heparin Sodium (Porcine) (Heparin) 5,000 units Q12H SC 08/23/20 21:00 08/24/20 20:24 DC 08/24/20 09:13 Home Med (Med Rec Complete!) ASDIRECTED XX 08/23/20 12:45 08/23/20 12:39 DC Ketorolac Tromethamine (ToRADol) 30 mg Q6H IV 08/23/20 16:00 08/25/20 10:15 DC 08/25/20 04:02 Lactulose (Cephulac) 30 ml DAILY PO 08/24/20 09:00 08/26/20 09:20 Levalbuterol HCl (Xopenex Neb) 1.25 mg Q2HP PRN NEB WHEEZING 08/23/20 14:45 Levalbuterol HCl (Xopenex Neb) 1.25 mg RQ6H NEB 08/23/20 20:00 08/26/20 13:16 Losartan Potassium (Cozaar) 25 mg DAILY PO 08/24/20 09:00 08/25/20 10:47 DC Magnesium Hydroxide (Milk Of Magnesia) 30 ml DAILY PO 08/24/20 09:00 08/26/20 09:20 Metoprolol Succinate (TopROL XL) 25 mg DAILY PO 08/24/20 09:00 08/25/20 10:49 DC Multivitamins (Theragram-M) 1 tab DAILY PO 08/24/20 09:00 08/26/20 09:22 Omeprazole (PriLOSEC) 40 mg DAILY PO 08/24/20 09:00 08/26/20 09:22 Ondansetron HCl (ZOFRAN INJection) 4 mg Q4HP PRN IV NAUSEA 08/23/20 14:45 Oxycodone/ Acetaminophen (Percocet 5mg/ 325mg Tablet) 1 tab Q4H PRN PO MODERATE PAIN (PS 5-7) 08/23/20 14:45 Oxycodone/ Acetaminophen (Percocet 5mg/ 325mg Tablet) 2 tab Q4H PRN PO SEVERE PAIN (PS 8-10) 08/23/20 14:45 Pantoprazole Sodium (Protonix) 40 mg DAILY PO 08/24/20 09:00 08/26/20 09:21 Potassium Chloride/Dextrose/ Sod Cl 1,000 ml @ 75 mls/hr [id number] IV 08/23/20 14:45 08/24/20 09:18 DC 08/24/20 05:58 Potassium Chloride (Micro-K Extencaps) 10 meq DAILY PO 08/24/20 09:00 08/26/20 09:21 Spironolactone (Aldactone) 100 mg DAILY PO 08/24/20 09:00 08/24/20 20:05 DC 08/24/20 09:12 Tamsulosin HCl (Flomax) 0.4 mg DAILY PO 08/24/20 09:00 08/26/20 09:21 Allergies Coded Allergies: POLLEN (Verified Allergy, Unknown, 05/22/20) Martha Arevalo MD Aug 26, 2020 15:32
--- NOTE | 2020-08-26 20:20 | IPN ---
PROGRESS NOTE DATE: 08/26/2020 SUBJECTIVE: Mr. Okeefe is still pouring increased amounts out his chest catheter. Other than that, he is comfortable. He is not short of breath. I see that he has a scheduled TIPS telemedicine visit tomorrow. OBJECTIVE: VITAL SIGNS: Show a T-max of 99.9 with a heart rate that ranges between 71 and 96 in a sinus rhythm. Respiratory rate of 16 to 19 without the use of accessory muscles who is 97% to 98% saturated on room air and his blood pressure is ranging between 94/56 to 117/55. INTAKE AND OUTPUT: Over the past 24 hours has been recorded as 1450 in and 2525 out for a negativity of 1000 mL. His urine output is in the 1400 mL and his chest tube output has been 1125 mL. His weight today is 106.9 kg compared to 108 kg yesterday. RESPIRATORY: His lungs show equal breath sounds on either side with normal vesicular sounds. Percussion notes are full to the diaphragm. CARDIAC: Without murmurs, clicks, gallops, or rubs. I cannot feel his PMI. S1 and S2 are normal. ABDOMEN: Soft and nontender. Bowel sounds are positive. There is no hepatomegaly appreciated through his obesity. No CVA tenderness. EXTREMITIES: Show 1+ pretibial edema. No calf tenderness. No differential swelling of the upper extremities. SKIN: Warm, dry, and perfused without cyanosis or mottling, including that of the nail beds and knees. NECK: Supple. There is no jugular venous distention. No subcutaneous emphysema. Trachea is midline. MOUTH: Shows the mucous membranes to be pink and moist. Lips and gums without lesions and no thrush. EYES: Show his pupils equal and reactive. Extraocular movements are intact. Sclerae slightly icteric. NEUROLOGIC: Shows II through XII intact. Normal gross motor, gross sensation intact. Gait is not tested. PSYCHIATRIC: Shows him to be awake, alert, and oriented x3 with appropriate mood and affect and conversational. LABORATORY DATA: His white count today is 3.1 with hemoglobin and hematocrit of 9.6 and 30.0 respectively. Platelet count is 42,000 and fairly stable. No differentials on him today. His electrolytes are normal with a BUN and creatinine of 18 and 1.48 down from 21 and 1.53 yesterday. Glucose is 108 with a calcium of 8.3 and a corresponding albumin of 2.5. He has now had a total of seven units of 25% albumin in 50 mL aliquots over the past three days. His AST and ALT are 54 and 33 respectively. PT/INR has not been checked since August 23. I have in prior notes discussed his pleural fluid, which looks transudative and monocytic. Aerobic and anaerobic cultures are negative. IMAGING: His chest x-ray today shows his lungs fully expand to the chest wall with sharp costophrenic angles. A diffuse haze in the right lower hemithorax is getting better. Cardiac silhouette is normal. I see no other infiltrates. IMPRESSION: 1. Right side pleural effusion secondary to cirrhosis. 2. Cirrhosis with ascites. 3. Thrombocytopenia secondary to cirrhosis. 4. Asthma. 5. Diastolic dysfunction. 6. Obesity. 7. Hypertension. 8. Osteoarthritis. 9. Hypoalbuminemia secondary to cirrhosis improving with albumin infusions. PLAN AND DISCUSSION: We are still between a rock and a hard place with regard to his pleural output. I was asked yesterday whether he could have a pleural peritoneal connection. The obvious answer to that is yes, but it is microscopic. Pores have been invoked occasionally in the literature within the diaphragm between the peritoneal and pleural cavities to explain pleural effusion secondary to ascites. They have never really been proven except for the occasional case report of a diaphragmatic hernia, which he does not have. Fluid is leaking through the diaphragm that may be at the esophageal or aortic hiatus. In any case, there is nothing mechanical to fix. The definitive fix is either a liver transplant or a transjugular intrahepatic portosystemic shunt (TIPS) procedure to reduce the portal hypertension.
[2020-08-26] MEDS: PERCOCET 5MG/325MG TAB PO PRN (21:52)
--- NOTE | 2020-08-26 23:54 | IPN ---
NEPHROLOGY PROGRESS NOTE DATE: 08/26/2020 SUBJECTIVE: The patient is seen and examined this morning at the bedside, sitting out of bed to the chair. He denies any overnight events or complaints. Urine output has improved with increased dose of Lasix. He continues to have significant output to the chest tube. He denies shortness of breath at rest. VITAL SIGNS: Temperature 98.1, pulse 71, respiratory rate 18, blood pressure 111/56, saturating 97% on room air. INTAKE AND OUTPUT: Intake yesterday was 1,450. Urine output yesterday was 1,400. Chest tube drainage yesterday was 1,125. So far today urine output is already three and a half liters. However chest tube drainage is also greater than 2 liters. Weight in the bed scale is 106.9 kg. PHYSICAL EXAMINATION: GENERAL APPEARANCE: The patient is seen sitting upright in bed. Head of the bed elevated. Awake, alert, oriented x3 in no apparent distress. HEENT: The extraocular muscles are intact. Tongue is moist. NECK: Supple. Jugular veins are mildly elevated. HEART: Regular, S1 and S2. There is 1+ edema in the legs. LUNGS: Breath sounds are symmetric bilaterally. There is a chest tube present on the right. ABDOMEN: Soft and nontender. His ascites appears to be minimal. SKIN: Warm and dry. NEUROLOGICAL: He is oriented x3, interactive and at baseline mentation. LABORATORY STUDIES: Sodium 139, potassium 4.0, bicarbonate 28, BUN 18, creatinine 1.4. saturation 27%, albumin 2.5, hemoglobin 9.6, platelet count 42. IMAGING: Chest x-ray this morning shows left hemithorax is relatively clear and there is a right basilar chest tube in stable position with a small residual pleural fluid. INPATIENT MEDICATIONS: The patient continues on Lasix 40 mg IV q. 8 hourly. He has received 7 runs of albumin. He is not ordered for any further albumin. His remainder of medications are unchanged as compared to yesterday. PROBLEMS: 1. Acute kidney injury superimposed on chronic kidney disease stage 2 it is secondary to IV NSAIDs. His renal function has improved. He is off of nephrotoxic agents. Please continue to hold any samson inhibitor or ARB. He is tolerating the increased IV diuretic well and his urine output is improving. 2. Recurrent right pleural effusion in this patient with decompensated alcoholic cirrhosis he previously had large volume ascites, however since July of 2020 he has had recurrent, very large volume right pleural effusions suggestive of a pleural peritoneal leak. I feel that his right sided pleural effusions are highly likely to reoccur and be large in volume. Unless he has procedure such as TIPS or possibly a talc pleurodesis. We have increased his diuretics. His urine output is improving. His albumin is up to 2.5. I will bump up the Lasix to 60 mg q. 8 hourly as I note that his chest tube drainage has increased today to more than 2 liters. 3. Decompensated alcoholic cirrhosis more recently instead of large volume ascites, the patient has developed large volume right sided pleural effusion recurrently. He is being diuresed aggressively with Lasix q. 8 hourly. I will increase to 60 mg q. 8 hourly. He has received multiple albumin infusions and his albumin is up to 2.5. If his albumin downtrends, we will continue giving him more albumin infusion. Blood pressures are acceptable. Please keep off of home antihypertensives as it will be difficult to diurese him if his blood pressures are soft. 4. Pancytopenia most likely related to cirrhosis. His iron stores are borderline low. I would hold off on giving him IV iron right now while he is already overloaded, and we are attempting to diurese.
[2020-08-27 00:22] VITALS: BP 103/65
[2020-08-27] MEDS: FUROSEMIDE 100MG/10ML VIAL (J1940) IV SCH ×3 (00:38→17:40)
[2020-08-27] MEDS: LEVALBUTEROL 1.25 MG/0.5 ML CONCENTRATE NEB NEB SCH ×4 (01:55→20:00)
[2020-08-27 04:39] VITALS: BP 99/59
[2020-08-27 05:17] LABS: HEMOGLOBIN 10.2 g/dl (13.5-17.5); MEAN CORPUSCULAR HEMOGLOBIN 33.6 pg (27.0-33.0); MEAN CORPUSCULAR HGB CONC 32.9 g/dl (32.0-36.5); RED BLOOD COUNT 3.04 10^6/uL (4.30-6.10); WHITE BLOOD COUNT 3.3 10^3/uL (4.0-10.0)
[2020-08-27 05:21] LABS: PLATELET COUNT, AUTOMATED 52 10^3/uL (150-450)
[2020-08-27 05:50] LABS: ALBUMIN 2.5 GM/DL (3.2-5.2); ALT/SGPT 31 U/L (12-78); BLOOD UREA NITROGEN 16 MG/DL (7-18); CALCIUM LEVEL 8.2 MG/DL (8.8-10.2); CARBON DIOXIDE LEVEL 30 MEQ/L (21-32); CHLORIDE LEVEL 103 MEQ/L (98-107); CREATININE FOR GFR 1.24 MG/DL (0.70-1.30); GLOMERULAR FILTRATION RATE > 60.0 (>49); GLUCOSE, FASTING 132 MG/DL (70-100); POTASSIUM SERUM 3.6 MEQ/L (3.5-5.1); SODIUM LEVEL 141 MEQ/L (136-145); TOTAL PROTEIN 5.3 GM/DL (6.4-8.2)
[2020-08-27] MEDS: FLUTICASONE HFA 44 MCG 10.6GM INHALER (FLOVENT) INH SCH ×2 (07:33→20:16)
[2020-08-27 08:00] VITALS: BP 116/56
--- NOTE | 2020-08-27 08:05 | REP ---
INDICATION: pleural effusion COMPARISON: 08/26/2020 TECHNIQUE: PA and lateral. FINDINGS: The mediastinum and cardiac silhouette are normal. Pigtail catheter at the right base is again noted and stable. No evidence for residual pneumothorax. Trace changes at the lung bases including subtle blunting to the costophrenic angles suggests small amounts of residual pleural reaction. No new acute process appreciated. IMPRESSION: Pigtail catheter in stable position. No residual pneumothorax identified. Very subtle pleuroparenchymal changes at the lung bases. <Electronically signed by Jose Qureshi > 08/27/20 0802
[2020-08-27] MEDS: LACTULOSE 20 GM/30 ML SYRUP UD PO SCH (08:51)
[2020-08-27] MEDS: MOM 30ML SUSPENSION UDC PO SCH (08:51)
[2020-08-27] MEDS: MULTIVITAMINS/MINERALS THERAP 1 TAB PO SCH (08:51)
[2020-08-27] MEDS: TAMSULOSIN 0.4 MG CAP PO SCH (08:53)
[2020-08-27] MEDS: OMEPRAZOLE 20 MG CAP PO SCH (08:53)
[2020-08-27] MEDS: PANTOPRAZOLE 40MG TAB (PROTONIX) PO SCH (08:53)
[2020-08-27] MEDS: DOCUSATE SODIUM 100MG CAPSULE PO SCH ×2 (08:53→21:41)
[2020-08-27] MEDS: POTASSIUM CHLORIDE 10 MEQ SR TABLET PO SCH (08:53)
--- NOTE | 2020-08-27 09:21 | IPN ---
PROGRESS NOTE DATE: 08/27/2020 SUBJECTIVE: Mr. Okeefe is doing well today. He is still putting out too much from the chest tube to remove it, but it is trending down. OBJECTIVE: VITAL SIGNS: Show a T-max of 98.8 with a heart rate that ranges between 66 and 81 in sinus rhythm. Respiratory rate of constant 18 who is 91% to 93% saturated on room air and whose blood pressure is ranging between 99/59 to 116/56. INTAKE AND OUTPUT: Over the past 24 hours has been recorded as 920 in and 5315 out for a negativity of 4300 mL. He has put out 3225 mL of urine, which continues to go up. He put out 2090 mL from his chest tube yesterday, but with marked decrease over the last 16 hours. RESPIRATORY: His lungs show equal breath sounds on either side. He has some scattered rhonchi, which clear with coughing. Percussion notes are full to the diaphragm. CARDIAC: Without murmurs, clicks, gallops, or rubs. I cannot feel his PMI. S1 and S2 are normal. ABDOMEN: Soft and nontender. Bowel sounds are positive. There is no hepatomegaly. No CVA tenderness. EXTREMITIES: Show trace pretibial edema. No calf tenderness. No differential swelling of the upper extremities. SKIN: Warm, dry, and perfused without cyanosis or mottling, including that of the nail beds and knees. NECK: Supple. There is no jugular venous distention. No subcutaneous emphysema. Trachea is midline. MOUTH: Shows the mucous membranes to be pink and moist. Lips and gums without lesions and no thrush. EYES: Show his pupils equal and reactive. Extraocular movements are intact. Sclerae are slightly icteric. NEUROLOGIC: Shows II through XII intact. Normal gross motor, gross sensation intact. Gait is not tested. PSYCHIATRIC: Shows him to be awake, alert, and oriented x3 with appropriate mood and affect and conversational. LABORATORY DATA: His white count today is 3.3 with a hemoglobin and hematocrit of 10.2 and 31.0 and a platelet count of 52,000. These are essentially all unchanged from yesterday. Electrolytes are normal with a BUN and creatinine now of 16 and 1.24, improved from two days ago of 21 and 1.53 and yesterday of 18 and 1.48. Calcium is 8.2 with an albumin of 2.5. He has been transfused 7 units of 25% albumin at 50 mL/unit. IMAGING: His chest x-ray shows his lungs fully expand to the chest wall. Costophrenic angles are sharp. The chest tube catheter is in good place in the right costophrenic angle. IMPRESSION: 1. End-stage liver disease and cirrhosis. 2. Right-sided pleural effusion secondary to above. 3. Thrombocytopenia secondary to cirrhosis. 4. Asthma. 5. Diastolic dysfunction. 6. Obesity. 7. Hypertension. 8. Osteoarthritis. 9. Hypoalbuminemia, improved with albumin infusions. PLAN AND DISCUSSION: He is to have a teleconference with Dr. Waters of interventional radiology today with regard to a transjugular intrahepatic portosystemic shunt (TIPS) procedure. No one has ever mentioned a liver transplant to him. 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 He has not touched alcohol since the beginning of summer. I will continue his chest tube catheter for the time being. Hopefully with the medical treatment of his cirrhosis including increased diuresis and albumin infusions, I will be able to remove that catheter soon. I am gratified that his kidney function is returning, but we should not let up on the diuresis.
--- NOTE | 2020-08-27 10:25 | IPNPDOC ---
Text Note Date of Service The patient was seen on 08/27/20. NOTE SUBJECTIVE: Patient seen and examined at bedside. No acute overnight events reported. Patient has no new medical complaints this morning. OBJECTIVE: VITAL SIGNS: See below GENERAL APPEARANCE: NAD HEENT: No nasal flaring or tracheal deviation. No JVD. Thick neck. Moist mucous membranes. Poor dentition CARDIOVASCULAR: +S1S2, regular rate rhythm. BACK: right side pigtail catheter entering posterior lung LUNGS: CTA B/L ABDOMEN: Obese, distended without fluid wave, positive bowel sounds 4 quadrants. No rebound or guarding. No CVA tenderness Dullness to percussion EXTREMITIES: 2-3+ pitting edema to upper thighs LABORATORY DATA: See below. MICROBIOLOGY: Please see below. ASSESSMENT: 60-year-old male with history of alcoholic liver cirrhosis with decompensated liver failure and recurrent ascites and pleural effusions, hx of thoracentesis and paracentesis admitted for recurrent right side pleural effusion 2/2 to decompensated liver cirrhosis requiring pleural drainage. PLAN: #Recurrent right side pleural effusion 2/2 to decompensated liver cirrhosis, s/p pigtail catheter insertion -Remains saturating well on RA -Total of 11,630 mL removed from chest tube alone this admission -CXR: above -IV lasix Q8H albumin Q6hrs -Continue to monitor on tele, close I&O, fluid restriction -If BP drops, can give midodrine- has required in the past -C/w medications below for liver cirrhosis -CT surgery following - assistance appreciated #Acute decompensated liver cirrhosis with recurrent ascites, portal HTN and pleural effusion -No abd discomfort, slightly distended abd, no fluid wave- not sending for paracentesis -VS stable aside from O2 -AST/ALT are baseline for patient -Dr. Waters clarified that appointment with her on 08/27/20 is a new patient ap pointment only. Will do via telemed while inpatient. She will evaluate to see if patient is candidate for TIPS procedure at that time. -New patient appt with GI Dr Hancock Aug -C/w lasix 60 IV Q8H, lactulose, fluid restriction, daily weights -Holding spironolactone currently -Daily CMP #Acute kidney injury likely 2/2 to toradol -C/w diuresis, stopped toradol -Nephrology following #Anasarca/ third spacing 2/2 to decompensated liver cirrhosis with portal hypertension -Complicated by recurrent ascites and pleural effusions -C/w treatment, f/u above above #Hypoalbuminemia secondary to alcoholic liver cirrhosis -C/w treatment above #History of Alcohol abuse -Last drink early 2019 #Chronic pancytopenia /chronic thrombocytopenia / macrocytic anemia secondary to liver cirrhosis -PLTs dropped slightly further today to 42, lower than baseline in 70's, H/H stable -No signs of active bleeding, No indication for blood transfusion -CBC daily -Stopped heparin product, not suspecting HIT #Hypokalemia, chronic -C/w daily supplement #Hyperbilirubinemia due to ETOH liver disease, decompensated -F/u with GI #GI px -PPI #DVT px. -SCD, teds DISPOSITION: CT surgery, nephrology following. Dr. Waters to evaluate today. VS,Fishbone, I+O VS, Fishbone, I+O Laboratory Tests 08/27/20 05:02 Vital Signs Date Time Temp Pulse Resp B/P (MAP) Pulse Ox O2 Delivery O2 Flow Rate FiO2 08/27/20 08:00 98.0 66 18 116/56 (76) 91 Room Air 08/24/20 08:00 2.0 08/23/20 16:00 95 I&O- Last 24 Hours up to 6 AM 08/27/20 06:00 Intake Total 1120.0 ml Output Total 3710 ml Balance -2590.0 ml JORGE KEITA MD Aug 27, 2020 10:25
[2020-08-27 12:00] VITALS: BP 95/58
[2020-08-27 15:53] VITALS: BP 110/66
[2020-08-27 20:00] VITALS: BP 130/77
[2020-08-27] MEDS: NORCO, ANEXSIA 5/325MG TABLET (HYDROcodone/ACETAMINOPHEN) PO PRN (21:41)
[2020-08-28] VITALS: BP 116/67
[2020-08-28] MEDS: FUROSEMIDE 100MG/10ML VIAL (J1940) IV SCH ×3 (00:05→17:00)
[2020-08-28] MEDS: LEVALBUTEROL 1.25 MG/0.5 ML CONCENTRATE NEB NEB SCH ×4 (01:18→19:34)
[2020-08-28 04:00] VITALS: BP 102/52
[2020-08-28] MEDS: PERCOCET 5MG/325MG TAB PO PRN ×2 (06:16→20:47)
[2020-08-28 08:00] VITALS: BP 97/56
[2020-08-28 08:23] LABS: BASO % 0.8 % (0.0-1.0); EOS # 0.3 10^3/uL (0.0-0.5); EOS % 7.1 % (0.0-3.0); HEMATOCRIT 32.4 % (42.0-52.0); HEMOGLOBIN 10.7 g/dl (13.5-17.5); LYMPH # 0.7 10^3/uL (1.5-5.0); LYMPH % 19.3 % (24.0-44.0); MEAN CORPUSCULAR HEMOGLOBIN 33.3 pg (27.0-33.0); MEAN CORPUSCULAR VOLUME 100.9 fl (80.0-96.0); MONO # 0.5 10^3/uL (0.0-0.8); MONO % 14.7 % (0.0-5.0); NEUTROPHILS % 57.8 % (36.0-66.0); RED BLOOD COUNT 3.21 10^6/uL (4.30-6.10); WHITE BLOOD COUNT 3.5 10^3/uL (4.0-10.0)
[2020-08-28 08:26] LABS: PLATELET COUNT, AUTOMATED 50 10^3/uL (150-450)
[2020-08-28] MEDS: FLUTICASONE HFA 44 MCG 10.6GM INHALER (FLOVENT) INH SCH ×2 (08:28→19:34)
--- NOTE | 2020-08-28 08:28 | REP ---
INDICATION: pleural effusion COMPARISON: 08/27/2020 TECHNIQUE: PA and lateral. FINDINGS: Posterior basilar pleural catheter in stable position. No obvious residual pneumothorax is appreciated and only minimal pleural reaction at the right base is suggested. The left diaphragmatic surface and costophrenic angle appear relatively sharp and normal. No new acute pleuroparenchymal process is appreciated. Mediastinum and cardiac silhouette are normal/stable. Skeletal structures are intact. IMPRESSION: No obvious residual right pneumothorax. No new acute pleuroparenchymal process appreciated. <Electronically signed by Jose Qureshi > 08/28/20 [id number]
[2020-08-28] MEDS: OMEPRAZOLE 20 MG CAP PO SCH (08:37)
[2020-08-28] MEDS: DOCUSATE SODIUM 100MG CAPSULE PO SCH ×2 (08:38→20:46)
[2020-08-28] MEDS: LACTULOSE 20 GM/30 ML SYRUP UD PO SCH (08:38)
[2020-08-28] MEDS: MOM 30ML SUSPENSION UDC PO SCH (08:38)
[2020-08-28] MEDS: PANTOPRAZOLE 40MG TAB (PROTONIX) PO SCH (08:38)
[2020-08-28] MEDS: POTASSIUM CHLORIDE 10 MEQ SR TABLET PO SCH (08:38)
[2020-08-28] MEDS: TAMSULOSIN 0.4 MG CAP PO SCH (08:38)
[2020-08-28] MEDS: MULTIVITAMINS/MINERALS THERAP 1 TAB PO SCH (08:38)
[2020-08-28 08:49] LABS: ALBUMIN 2.6 GM/DL (3.2-5.2); ALT/SGPT 34 U/L (12-78); BILIRUBIN,TOTAL 3.5 MG/DL (0.2-1.0); BLOOD UREA NITROGEN 16 MG/DL (7-18); CALCIUM LEVEL 8.4 MG/DL (8.8-10.2); CARBON DIOXIDE LEVEL 31 MEQ/L (21-32); CHLORIDE LEVEL 100 MEQ/L (98-107); CREATININE FOR GFR 1.14 MG/DL (0.70-1.30); GLOMERULAR FILTRATION RATE > 60.0 (>49); GLUCOSE, FASTING 89 MG/DL (70-100); POTASSIUM SERUM 3.5 MEQ/L (3.5-5.1); SODIUM LEVEL 138 MEQ/L (136-145); TOTAL PROTEIN 5.7 GM/DL (6.4-8.2)
--- NOTE | 2020-08-28 09:22 | IPN ---
INPATIENT PROGRESS NOTE DATE: 08/27/20 SUBJECTIVE: Rory is seen and examined this morning at the bedside. He reports he feels well. He denies any acute overnight events or complaints. His renal function has recovered nicely towards baseline. He continues to have lots of output to the chest tube, a little over 2 liters in the past 24 hours, but his urine output has also improved nicely. PHYSICAL EXAMINATION: Vital signs: Temperature 99.4, pulse 81, respiratory rate 18, blood pressure 130/77, saturating 95% on room air. Intake yesterday was 720, urine output was 3.2 liters, chest tube output was 0. Weight on the bed scale today is 104 kg. General: Patient is seen awake, alert, oriented in no apparent distress sitting in bed. HEENT: Extraocular muscles are intact. Tongue is moist. Neck: Supple. Jugular veins did not appear elevated. Heart: Sounds are regular S1 and S2. There is 1+ leg edema bilaterally. Regular rate and rhythm. Lungs: Pigtail catheter exiting the right posterior lung. Breath sounds are clear bilaterally. Abdomen: Soft and nontender. There are bowel sounds. Skin: Normal temperature and turgor. Neurologic: Oriented times 3, interactive and at baseline mentation. LABORATORY DATA: White count 3.3, hemoglobin 10.2, platelets 52. Sodium 141, potassium 3.6, bicarbonate 30, BUN 16, creatinine 1.2. Albumin 2.5. IMAGING: Chest x-ray August 27: Pigtail catheter right base, subtle blunting of costophrenic angle suggests small amounts of residual pleural reaction. INPATIENT MEDICATIONS: Reviewed by myself. Lasix was increased to 60 mg I.V. q8h. The remainder of medications is unchanged from prior. PROBLEMS/PLAN: 1. Acute kidney injury superimposed on CKD stage 2: It was secondary to I.V. NSAIDs and this has almost resolved. His urine output has increased. His renal function is improving. He is not on any nephrotoxic agents. Please continue to hold KHUSHBOO or ARB. I have increased the I.V. Lasix. 2. Recurrent right pleural effusion in this patient with decompensated alcoholic cirrhosis: Has had need for recurrent thoracentesis and drainage of his right pleural effusion since July of 2020. It is highly likely to reoccur and be large in volume unless he has a procedure such as TIPS or Talc pleurodesis. I have increased his Lasix to 60 q8h. His albumin is up to 2.5 and he is not being ordered for further albumin at this point as renal function is stable. 3. Decompensated alcoholic cirrhosis: Continue Lasix 60 mg I.V. q8h. He is not requiring midodrine at this time. We will reorder albumin if his albumin levels drop. 4. Hypokalemia: Continue potassium supplementation.
--- NOTE | 2020-08-28 10:27 | IPNPDOC ---
Text Note Date of Service The patient was seen on 08/28/20. NOTE SUBJECTIVE: Patient seen and examined at bedside. No acute overnight events reported. Patient has no new medical complaints this morning. OBJECTIVE: VITAL SIGNS: See below GENERAL APPEARANCE: NAD HEENT: NC/AT, poor dentition, EOMI CARDIOVASCULAR: +S1S2, RRR Chest: CTA B/L, pigtail catheter in place ABDOMEN: Obese, distended, +BS EXTREMITIES: 2+ pitting edema LABORATORY DATA: See below. MICROBIOLOGY: Please see below. ASSESSMENT: 60-year-old male with history of alcoholic liver cirrhosis with decompensated liver failure and recurrent ascites and pleural effusions, hx of thoracentesis and paracentesis admitted for recurrent right side pleural effusion 2/2 to decom pensated liver cirrhosis requiring pleural drainage. PLAN: #Recurrent right side pleural effusion 2/2 to decompensated liver cirrhosis, s/p pigtail catheter insertion -Remains saturating well on RA -over 10L removed from this admission -IV lasix Q8H Q6hrs -Continue to monitor on tele, I&O, fluid restriction -If BP drops, can give midodrine- has required in the past -C/w medications below for liver cirrhosis -CT surgery following - assistance appreciated - seen by IR yesterday - report pending for possible TIPS #Acute decompensated liver cirrhosis with recurrent ascites, portal HTN and pleural effusion -VS stable aside from O2 -AST/ALT are baseline for patient -New patient appt with GI Dr Hancock Aug -C/w lasix 60 IV Q8H, lactulose, fluid restriction, daily weights -Holding spironolactone currently - c/s report pending for possible TIPS procedure #DONITA/CKD - likely 2/2 to toradol -C/w diuresis, stopped toradol -Nephrology following - assistance appreciated #Anasarca/ third spacing 2/2 to decompensated liver cirrhosis with portal hypertension -Complicated by recurrent ascites and pleural effusions -C/w treatment as above #Hypoalbuminemia secondary to alcoholic liver cirrhosis -C/w treatment above - albumin slowly improving #History of Alcohol abuse -Last drink early 2019 #Chronic pancytopenia /chronic thrombocytopenia / macrocytic anemia secondary to liver cirrhosis -No signs of active bleeding, No indication for blood transfusion #Hypokalemia, chronic -C/w daily supplement #Hyperbilirubinemia due to ETOH liver disease, decompensated -F/u with GI #GI px -PPI #DVT px. -SCD, teds DISPOSITION: pending clinical improvement, CT surgery/nephrology follow up, TIPS?, PT VS,Fishbone, I+O VS, Fishbone, I+O Laboratory Tests 08/28/20 07:57 Vital Signs Date Time Temp Pulse Resp B/P (MAP) Pulse Ox O2 Delivery O2 Flow Rate FiO2 08/28/20 08:00 97.6 67 16 97/56 (70) 91 Room Air 08/24/20 08:00 2.0 08/23/20 16:00 95 I&O- Last 24 Hours up to 6 AM 08/28/20 06:00 Intake Total 1130 ml Output Total 3060 ml Balance -1930 ml JORGE KEITA MD Aug 28, 2020 10:27
[2020-08-28 12:00] VITALS: BP 105/61
--- NOTE | 2020-08-28 12:35 | IPN ---
PROGRESS NOTE DATE: 08/28/2020 SUBJECTIVE: Mr. Okeefe is again feeling fairly well and breathing well. He is starting to get more anxious to leave the hospital. He had an evaluation by interventional radiology yesterday of which I do not know the results. OBJECTIVE: VITAL SIGNS: T-max of 99.4 with a heart rate that ranges between 67 and 79 in sinus rhythm, respiratory rate of 16 to 18 without the use of accessory muscles who was 91% to 95% saturated on room air and whose blood pressure is ranging between 97/56 to 116/67. INTAKE AND OUTPUT: Over the past 24 hours has been recorded as 930 in and 3310 out for a negativity of 2380 mL. He has put out 2500 mL in urine and 810 mL from the chest tube. This is markedly down from 2000 mL the day before. His weight today is 76.5 kg down from 104 kg the day before. I think that the weight is spurious as he has been weighing around 106 to 108 kg all the other days. RESPIRATORY: His lungs show equal breath sounds on either side. Percussion notes are full to the diaphragm. CARDIAC: Without murmurs, clicks, gallops, or rubs. I cannot feel his PMI. S1 and S2 are normal. ABDOMEN: Soft and nontender. Bowel sounds are positive. There is no hepatomegaly. No CVA tenderness. EXTREMITIES: Show no pretibial edema. No calf tenderness. No differential swelling of the upper extremities. SKIN: Warm, dry, and perfused without cyanosis or mottling, including that of the nail beds and knees. NECK: Supple. There is no jugular venous distention. No subcutaneous emphysema. Trachea is midline. MOUTH: Shows his mucous membranes to be pink and moist. Lips and gums without lesions and no thrush. EYES: Show his pupils equal and reactive. Extraocular movements are intact. Sclerae nonicteric. NEUROLOGIC: Shows II through XII intact. Normal gross motor, gross sensation intact. Gait is not tested. PSYCHIATRIC: Shows him to be awake, alert, and oriented x3 with appropriate mood and affect and conversational. LABORATORY DATA: His white count today is 3.5 with hemoglobin and hematocrit of 10.7 and 33.4 slightly up from 10.2 and 31.0 yesterday; hopefully secondary to hemoconcentration. Platelet count is 50,000 and stable with a differential that shows 57% neutrophils, 19% lymphocytes, and 14% monocytes. There are no immature forms and no toxic granulations. His electrolytes are normal with a BUN and creatinine of 16 and 1.14, which continues to improve with a glucose of 89 and a calcium of 8.4 with an albumin of 2.6. IMAGING: His chest x-ray today shows his lungs fully expand to the chest wall. The diffuse haze in the right lower hemithorax is resolving. There are no other infiltrates. IMPRESSION: 1. End-stage liver disease with cirrhosis and ascites. 2. Right-sided pleural effusion secondary to cirrhosis. 3. Thrombocytopenia secondary to cirrhosis. 4. Asthma. 5. Diastolic dysfunction. 6. Obesity. 7. Hypertension. 8. Osteoarthritis. 9. Hypoalbuminemia improved with albumin infusions. PLAN AND DISCUSSION: I am pleased that his chest tube output is coming down. We will have a follow-up with Dr. Waters with regard to her recommendation to undergo a transjugular intrahepatic portosystemic shunt (TIPS) procedure. His cirrhosis now looks to becoming under medical control and his renal insufficiency is resolved, and we should continue aggressive diuresis along with albumin infusions. We will continue to follow his chest x-rays and chest tube output.
[2020-08-28 16:00] VITALS: BP 142/91
[2020-08-28 20:00] VITALS: BP 124/72
[2020-08-29] VITALS (10 sets, daily range): BP systolic 94–120; BP diastolic 50–74
[2020-08-29] MEDS: FUROSEMIDE 100MG/10ML VIAL (J1940) IV SCH ×3 (01:00→17:39)
[2020-08-29] MEDS: LEVALBUTEROL 1.25 MG/0.5 ML CONCENTRATE NEB NEB SCH ×4 (01:55→20:00)
[2020-08-29] MEDS: NORCO, ANEXSIA 5/325MG TABLET (HYDROcodone/ACETAMINOPHEN) PO PRN ×2 (02:28→08:44)
[2020-08-29 06:08] LABS: HEMATOCRIT 30.6 % (42.0-52.0); HEMOGLOBIN 10.1 g/dl (13.5-17.5); MEAN CORPUSCULAR HEMOGLOBIN 33.6 pg (27.0-33.0); MEAN CORPUSCULAR VOLUME 101.7 fl (80.0-96.0); PLATELET COUNT, AUTOMATED 48 10^3/uL (150-450); RED BLOOD COUNT 3.01 10^6/uL (4.30-6.10); WHITE BLOOD COUNT 3.5 10^3/uL (4.0-10.0)
[2020-08-29 06:33] LABS: BLOOD UREA NITROGEN 15 MG/DL (7-18); CALCIUM LEVEL 8.3 MG/DL (8.8-10.2); CARBON DIOXIDE LEVEL 32 MEQ/L (21-32); CHLORIDE LEVEL 99 MEQ/L (98-107); CREATININE FOR GFR 1.02 MG/DL (0.70-1.30); GLOMERULAR FILTRATION RATE > 60.0 (>49); GLUCOSE, FASTING 124 MG/DL (70-100); POTASSIUM SERUM 3.3 MEQ/L (3.5-5.1); SODIUM LEVEL 135 MEQ/L (136-145)
[2020-08-29] MEDS: FLUTICASONE HFA 44 MCG 10.6GM INHALER (FLOVENT) INH SCH ×2 (07:20→20:09)
[2020-08-29] MEDS: MOM 30ML SUSPENSION UDC PO SCH (08:44)
[2020-08-29] MEDS: LACTULOSE 20 GM/30 ML SYRUP UD PO SCH (08:44)
[2020-08-29] MEDS: OMEPRAZOLE 20 MG CAP PO SCH (08:45)
[2020-08-29] MEDS: DOCUSATE SODIUM 100MG CAPSULE PO SCH ×2 (08:46→21:15)
[2020-08-29] MEDS: PANTOPRAZOLE 40MG TAB (PROTONIX) PO SCH (08:46)
[2020-08-29] MEDS: TAMSULOSIN 0.4 MG CAP PO SCH (08:46)
[2020-08-29] MEDS: MULTIVITAMINS/MINERALS THERAP 1 TAB PO SCH (08:46)
[2020-08-29] MEDS: POTASSIUM CHLORIDE 10 MEQ SR TABLET PO SCH (08:46)
[2020-08-29 09:09] LABS: ALBUMIN 2.3 GM/DL (3.2-5.2); ALT/SGPT 33 U/L (12-78); BILIRUBIN,TOTAL 2.1 MG/DL (0.2-1.0); MAGNESIUM LEVEL 2.2 MG/DL (1.8-2.4); TOTAL PROTEIN 5.4 GM/DL (6.4-8.2)
--- NOTE | 2020-08-29 09:15 | REP ---
INDICATION: pleural effusion COMPARISON: 08/28/2020 TECHNIQUE: PA and lateral. FINDINGS: Bilateral lung sr are relatively well aerated and stable. Very subtle blunting to the costophrenic angles likely represents residual chronic change. No consolidation. No obvious effusion. No obvious significant pneumothorax. Mediastinum and cardiac silhouette normal. Skeletal structures intact. IMPRESSION: Very minimal chronic suggested changes at the pleural surfaces and costophrenic angles. No obvious or significant pneumothorax appreciated. No new acute process. <Electronically signed by Jose Qureshi > 08/29/20 0911
--- NOTE | 2020-08-29 10:32 | IPN ---
INPATIENT PROGRESS NOTE DATE: 08/28/20 SUBJECTIVE: Rory is seen and examined this morning at the bedside. He denies any overnight events or complaints and denies any shortness of breath, has been ambulating in the room. Chest tube output is still significant. His renal function has recovered to baseline. Apparently he was evaluated for TIPS, but patient tells me he was found not to be a suitable candidate. PHYSICAL EXAMINATION: Vital signs: Temperature 97.5, pulse 81, respiratory rate 20, blood pressure 124/72, saturating 93-95% on room air. Intake yesterday was 930, urine output was 2500, chest tube output was 800. Weight on the bed scale today was not accurately recorded. General: Patient is seen awake, alert, oriented in no apparent distress. HEENT: Extraocular muscles are intact. Tongue is moist. Neck: Supple. Jugular veins are not elevated. Heart: Sounds are regular S1 and S2. There is no leg edema. Lungs: Breath sounds are symmetric bilaterally and equal and clear. Abdomen: Soft and nontender. I do not appreciate much in the way of ascites. There is no suprapubic bladder fullness. Extremities: Show no cyanosis, clubbing or edema. Skin: Warm and dry, normal turgor. Neurologic: He is oriented times 3, interactive, conversational, at baseline mentation. Psychiatric: Appropriate mood and affect. LABORATORY DATA: Today's labs show sodium 138, potassium 3.5, bicarbonate 31, BUN 16, creatinine 1.1. Albumin has come up to 2.6. Hemoglobin 10.7, platelets 50, white count 3.5. IMAGING: Chest x-ray today shows posterior basilar pleural catheter in stable position, only minimal pleural reaction at right base is suggested. INPATIENT MEDICATIONS: Reviewed by myself. He continues on Lasix 60 mg I.V. q8h. There are no medications in the past 24 hours that have been changed. PROBLEMS/PLAN: 1. DONITA on CKD stage 3: It was secondary to I.V. NSAIDs and it has resolved. I am continuing him on I.V. Lasix for another day although I feel that his volume status is getting closer to compensated. Please continue to hold KHUSHBOO or ARB while he is being actively diuresed. 2. Recurrent right pleural effusion in this patient with decompensated alcoholic cirrhosis with need for recurrent thoracentesis and drainage of large right pleural effusion at least 3 times since July of 2020: His pleural effusion is very highly likely to recur and again be very large in volume. Patient tells me he was evaluated for TIPS via a Tele appointment, but was found not to be a suitable candidate. I feel that he most likely has a pleuroperitoneal leak and the reason why that he is not accumulating ascites anymore is because he is having these extremely large volume right pleural effusions. Primary team is going to discuss further with interventional radiology/thoracic surgery service to see if there is any definitive management that can be done such as PleurX catheter, TIPS or Talk pleurodesis. I will continue Lasix 60 mg q8h. His albumin is up to 2.6 and I do not see any need to continue albumin infusions. He has been off of them for a couple of days. His renal function is improved and he is diuresing well. 3. Decompensated alcoholic cirrhosis: As mentioned above instead of accumulating ascites the patient is developing recurrent right pleural effusions most likely due to a pleuroperitoneal connection. Continue oral fluid restriction, continue I.V. Lasix. He is not requiring midodrine at this time. 4. Hypokalemia: Continue potassium supplementation. 5. Thrombocytopenia related to cirrhosis. 6. Diastolic congestive heart failure: Patient's weights are down trending although today's weight was very inaccurate, but he is in daily net negative fluid status. His chest tube output is decreasing. His peripheral edema has resolved. I will leave him on I.V. Lasix for 1 more day, but we are getting close to transitioning to him to an oral diuretic regimen.
[2020-08-29] MEDS: SPIRONOLACTONE 25 MG TAB PO SCH (11:46)
--- NOTE | 2020-08-29 12:52 | IPNPDOC ---
Text Note Date of Service The patient was seen on 08/29/20. NOTE SUBJECTIVE: Patient seen and examined at bedside. No acute overnight events reported. Patient has no new medical complaints this morning. OBJECTIVE: VITAL SIGNS: See below GENERAL APPEARANCE: NAD HEENT: NC/AT, poor dentition, EOMI CARDIOVASCULAR: +S1S2, RRR Chest: CTA B/L, pigtail catheter in place ABDOMEN: Obese, distended, +BS EXTREMITIES: 2+ pitting edema ASSESSMENT: 60-year-old male with history of alcoholic liver cirrhosis with decompensated liver failure and recurrent ascites and pleural effusions, hx of thoracentesis and paracentesis admitted for recurrent right side pleural effusion 2/2 to decompensated liver cirrhosis requiring pleural drainage. PLAN: #Recurrent right side pleural effusion 2/2 to decompensated liver cirrhosis, s/p pigtail catheter insertion -Remains saturating well on RA -over 11L removed from this admission -IV lasix Q8H Q6hrs -Continue to monitor on tele, I&O, fluid restriction -If BP drops, can give midodrine- has required in the past -C/w medications below for liver cirrhosis -CT surgery following - assistance appreciated - seen by IR - to discuss further regarding utility of TIPS procedure #Acute decompensated liver cirrhosis with recurrent ascites, portal HTN and pleural effusion -AST/ALT are baseline for patient -had appt with GI Dr Hancock Aug - to reschedule on discharge -C/w lasix 60 IV Q8H, lactulose, fluid restriction, daily weights - spironolactone restarted #DONITA/CKD - resolved - likely 2/2 to toradol -C/w diuresis -Nephrology following - assistance appreciated #Anasarca/ third spacing 2/2 to decompensated liver cirrhosis with portal hypertension -Complicated by recurrent ascites and pleural effusions -C/w treatment as above #Hypoalbuminemia secondary to alcoholic liver cirrhosis -as above - continues to improve without further infusions #History of Alcohol abuse -Last drink early 2019 #Chronic pancytopenia /chronic thrombocytopenia / macrocytic anemia secondary to liver cirrhosis -No signs of active bleeding, No indication for blood transfusion #Hypokalemia, chronic -C/w daily supplement #Hyperbilirubinemia due to ETOH liver disease, decompensated -F/u with GI #DVT px. -SCD, teds DISPOSITION: pending clinical improvement, cleared by PT VS,Fishbone, I+O Priscila JIMENEZ I+O Laboratory Tests 08/29/20 05:27 Vital Signs Date Time Temp Pulse Resp B/P (MAP) Pulse Ox O2 Delivery O2 Flow Rate FiO2 08/29/20 12:00 98.3 74 19 114/74 (87) 92 Room Air 08/24/20 08:00 2.0 08/23/20 16:00 95 I&O- Last 24 Hours up to 6 AM 08/29/20 06:00 Intake Total 1260 ml Output Total 1500 ml Balance -240 ml JORGE KEITA MD Aug 29, 2020 12:52
--- NOTE | 2020-08-29 16:14 | IPN ---
PROGRESS NOTE DATE: 08/29/2020 Mr. Okeefe is doing fairly well today. His pain is being well controlled, and he is breathing well. His vital signs show a maximum temperature of 99.0 with a heart rate that ranges between 73-86 in a sinus rhythm, respiratory rate of 16-21 without the use of accessory muscles, who is 93%-97% saturated on room air and whose blood pressure is ranging between 104/65 to 114/74. His intake and output for the past 24 hours has been recorded as 1610 in and 1695 out, for a negative of 85 mL. He has put out 670 mL from the chest tube, down from 810 mL the day before. He has put out 1025 mL in urine output. Weight today is 104 kg compared to 104 kg 2 days ago. PHYSICAL EXAMINATION: His lung show normal vesicular sounds without wheezes, rhonchi, or rales. Percussion note is full to the diaphragm. Cardiac exam is without murmurs, clicks, gallops, or rubs. I cannot feel his point of maximal impulse (PMI). S1 and S2 are normal. Abdomen is soft and nontender. Bowel sounds are positive. There is no hepatomegaly. No costovertebral angle (CVA) tenderness. Extremities show maybe trace pretibial edema. No calf tenderness, no differential swelling of the upper extremities. Skin is warm, dry, and perfused without cyanosis or mottling, including that of the nailbeds and knees. Neck is supple. There is no jugular venous distention. No subcutaneous emphysema. Trachea is midline. Mouth shows the mucous membranes to be pink and moist. Lips and commissures without lesions. No thrush. Eyes show his pupils to be equal and reactive. Extraocular motion intact. Sclerae anicteric. Neurologic shows II-XII intact. Normal gross motor, gross sensation intact. Gait is not tested. Psychiatric shows him to be awake, alert, and oriented times three with appropriate mood and affect and conversational. His white count today is 3.5 with a hemoglobin and hematocrit of 10.1 and 30.6, essentially unchanged from yesterday, with a platelet count of 48 and stable. His electrolytes show potassium 3.3 with a BUN and creatinine of 15 and 1.02, glucose of 124, and a calcium of 8.3 with a corresponding albumin of 2.3. He has been transfused a total of 850 mL aliquots of 25% albumin. His chest x-ray today shows the lungs fully expanded to the chest wall. The diffuse haze is even less today in the right lower lobe. Costophrenic angles are sharp with flattened diaphragms. IMPRESSION: 1. End-stage liver disease with cirrhosis and ascites. 2. Right-sided pleural effusion secondary to cirrhosis. 3. Thrombocytopenia secondary to cirrhosis. 4. Asthma. 5. Diastolic dysfunction. 6. Obesity. 7. Hypertension. 8. Osteoarthritis. 9. Hyperalbuminemia, improved with albumin infusions. PLAN AND DISCUSSIONS: He is still putting way too much out of the chest tube, although it is coming down with aggressive diuresis and albumin infusions. His ascites is minimal, but his pleural effusion is quite large. I suspect that his ascites is appearing in his pleural cavity rather than collecting in his abdomen. He may have microscopic pores in the diaphragm, and with negative pressure from breathing and positive pressure in the abdomen, fluid is transudating across the diaphragm to the pleural surface. It is the same thing as his ascitic fluid, except it is just in a different place. It is my understanding that interventional radiology is reticent to undertake and transjugular intrahepatic portosystemic shunt (TIPS) procedure, because he has very little ascites. The ascites is appearing as pleura.
[2020-08-29] MEDS: PERCOCET 5MG/325MG TAB PO PRN (21:14)
[2020-08-30] VITALS (13 sets, daily range): BP systolic 94–125; BP diastolic 52–68
[2020-08-30] MEDS: LEVALBUTEROL 1.25 MG/0.5 ML CONCENTRATE NEB NEB SCH ×4 (00:05→20:30)
[2020-08-30] MEDS: FUROSEMIDE 100MG/10ML VIAL (J1940) IV SCH ×3 (01:00→17:20)
[2020-08-30] MEDS: PERCOCET 5MG/325MG TAB PO PRN ×2 (03:49→11:25)
[2020-08-30 06:26] LABS: HEMATOCRIT 31.4 % (42.0-52.0); HEMOGLOBIN 10.2 g/dl (13.5-17.5); MEAN CORPUSCULAR HEMOGLOBIN 33.1 pg (27.0-33.0); MEAN CORPUSCULAR HGB CONC 32.5 g/dl (32.0-36.5); MEAN CORPUSCULAR VOLUME 101.9 fl (80.0-96.0); RED BLOOD COUNT 3.08 10^6/uL (4.30-6.10); WHITE BLOOD COUNT 3.1 10^3/uL (4.0-10.0)
[2020-08-30 06:30] LABS: PLATELET COUNT, AUTOMATED 50 10^3/uL (150-450)
[2020-08-30 07:00] LABS: ALBUMIN 2.8 GM/DL (3.2-5.2); ALT/SGPT 35 U/L (12-78); BILIRUBIN,TOTAL 2.3 MG/DL (0.2-1.0); BLOOD UREA NITROGEN 15 MG/DL (7-18); CALCIUM LEVEL 8.3 MG/DL (8.8-10.2); CARBON DIOXIDE LEVEL 32 MEQ/L (21-32); CHLORIDE LEVEL 98 MEQ/L (98-107); CREATININE FOR GFR 1.13 MG/DL (0.70-1.30); GLOMERULAR FILTRATION RATE > 60.0 (>49); GLUCOSE, FASTING 105 MG/DL (70-100); POTASSIUM SERUM 3.4 MEQ/L (3.5-5.1); SODIUM LEVEL 136 MEQ/L (136-145); TOTAL PROTEIN 5.5 GM/DL (6.4-8.2)
[2020-08-30] MEDS ORDERED: SLF 3 ML SYR IV PRN (07:45)
[2020-08-30] MEDS: FLUTICASONE HFA 44 MCG 10.6GM INHALER (FLOVENT) INH SCH ×2 (07:54→20:30)
--- NOTE | 2020-08-30 07:57 | REP ---
INDICATION: pleural effusion COMPARISON: 08/29/2020 TECHNIQUE: PA and lateral. FINDINGS: Pleural catheter at the posterior right base. No obvious residual pleural effusion. The mediastinum and cardiac silhouette are normal. The lung sr are clear and without acute consolidation, effusion, or pneumothorax. The skeletal structures are intact and normal. IMPRESSION: No acute cardiopulmonary process. <Electronically signed by Jose Qureshi > 08/30/20 075
[2020-08-30 08:26] LABS: MAGNESIUM LEVEL 2.1 MG/DL (1.8-2.4)
[2020-08-30] MEDS: DOCUSATE SODIUM 100MG CAPSULE PO SCH ×2 (08:56→21:19)
[2020-08-30] MEDS: LACTULOSE 20 GM/30 ML SYRUP UD PO SCH (08:56)
[2020-08-30] MEDS: OMEPRAZOLE 20 MG CAP PO SCH (08:56)
[2020-08-30] MEDS: SPIRONOLACTONE 25 MG TAB PO SCH (08:56)
[2020-08-30] MEDS: PANTOPRAZOLE 40MG TAB (PROTONIX) PO SCH (08:56)
[2020-08-30] MEDS: TAMSULOSIN 0.4 MG CAP PO SCH (08:57)
[2020-08-30] MEDS: MOM 30ML SUSPENSION UDC PO SCH (08:57)
[2020-08-30] MEDS: MULTIVITAMINS/MINERALS THERAP 1 TAB PO SCH (08:57)
[2020-08-30] MEDS: POTASSIUM CHLORIDE 10 MEQ SR TABLET PO SCH (08:57)
--- NOTE | 2020-08-30 10:18 | IPN ---
INPATIENT PROGRESS NOTE DATE: 08/29/20 SUBJECTIVE: Patient seen and examined this morning at the bedside, reports he did not sleep all that well last night just felt restless. He refused the 1:00 a.m. dose of Lasix. Another one of the Lasix doses was held because of low blood pressure. His urine output was lower the past 24 hours, only 1 liter. He continues to have significant drainage from his chest tube, 670 mL. He denies shortness of breath at rest. PHYSICAL EXAMINATION: Temperature 97.7, pulse 73, respiratory rate 16, blood pressure 120/67, saturating 96% on room air. Intake yesterday was 1620, chest tube output was 670, urine output was 1 liter, equivalent fluid balance. Weight on the bed scale today is 104 kg. General: Patient is seen awake, alert, oriented, in no apparent distress. HEENT: Extraocular muscles are intact. Tongue is moist. Neck: Supple. Heart: Sounds are regular S1 and S2. There is absolutely no leg edema. Abdomen: Soft and nontender. There are bowel sounds. Lungs: Symmetric air entry bilaterally. No crackle or rale. He is seen comfortable on room air. Neurologic: He is oriented times 3, interactive and conversational. Psychiatric: Appropriate mood and affect. LABORATORY DATA: White count 3.5, hemoglobin 10.1, platelets 48. Sodium 135, potassium 3.3, bicarbonate 32, BUN 15, creatinine 1, magnesium 2.2. INPATIENT MEDICATIONS: I ordered spironolactone 25 mg by mouth daily and I also ordered 3 doses of albumin 25%. The remainder of medications remain unchanged from prior. PROBLEMS/PLAN: 1. DONITA on CKD stage 3: His DONITA has resolved. It was secondary to I.V. NSAIDs. His renal function is back to baseline. We are continuing him on I.V. Lasix for further diuresis because his chest tube output is still significant hence please continue to hold KHUSHBOO inhibitor or angiotensin receptor marin while he is being actively diuresed with I.V. Lasix. 2. Recurrent right pleural effusion in this patient with decompensated alcoholic cirrhosis with need for recurrent thoracentesis and drainage of the right pleural effusion multiple times since July of 2020: His chest tube output is 670 mL in the past 24 hours. His urine output decreased because 2 doses of I.V. Lasix were held. I see his albumin has also down trended. I have ordered 3 more doses of albumin and we will continue Lasix 60 mg q8h and I have also added spironolactone. 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 3. Decompensated alcoholic cirrhosis with recurrent right pleural effusion: Continue oral fluid restriction, continue I.V. Lasix, 3 doses of albumin 25% are ordered and spironolactone is being added as well. 4. Hypokalemia: Continue potassium supplementation. Spironolactone 25 mg daily is added as well. 5. Decompensated diastolic congestive heart failure: Overall his volume status has significantly improved over the course of this admission and his chest tube output is decreasing; however, it is still not low enough to discontinue the chest tube. We are giving albumin today and we are continuing I.V. Lasix and adding spironolactone as well. I feel he will be able to transition to an oral diuretic regimen in the coming 1-2 days.
[2020-08-30] MEDS ORDERED: POTASSIUM CHLORIDE 10 MEQ SR TABLET PO ONE (11:00)
--- NOTE | 2020-08-30 11:09 | IPNPDOC ---
Text Note Date of Service The patient was seen on 08/30/20. NOTE SUBJECTIVE: Patient seen and examined at bedside. No acute overnight events reported. Patient has no new medical complaints this morning. OBJECTIVE: VITAL SIGNS: See below GENERAL APPEARANCE: NAD HEENT: NC/AT, poor dentition, EOMI CARDIOVASCULAR: +S1S2, RRR Chest: CTA B/L, pigtail catheter in place ABDOMEN: Obese, distended, +BS EXTREMITIES: 2+ pitting edema ASSESSMENT: 60-year-old male with history of alcoholic liver cirrhosis with decompensated liver failure and recurrent ascites and pleural effusions, hx of thoracentesis and paracentesis admitted for recurrent right side pleural effusion 2/2 to decompensated liver cirrhosis requiring pleural drainage. PLAN: #Recurrent right side pleural effusion 2/2 to decompensated liver cirrhosis, s/p pigtail catheter insertion -Remains saturating well on RA -over 11L removed from this admission -IV lasix Q8H Q6hrs -Continue to monitor on tele, I&O, fluid restriction -If BP drops, can give midodrine- has required in the past -C/w medications below for liver cirrhosis -CT surgery following - assistance appreciated - discussed with IR - assistance appreciated - has been placed on liver transplant list, will re-eval in 3-4 months regarding TIPS #Acute decompensated liver cirrhosis with recurrent ascites, portal HTN and pleural effusion -AST/ALT are baseline for patient -had appt with GI Dr Hancock Aug - to reschedule on discharge -C/w lasix 60 IV Q8H, lactulose, fluid restriction, daily weights - spironolactone restarted #DONITA/CKD - resolved - likely 2/2 to toradol -C/w diuresis -Nephrology following - assistance appreciated #Anasarca/ third spacing 2/2 to decompensated liver cirrhosis with portal hypertension -Complicated by recurrent ascites and pleural effusions -C/w treatment as above #Hypoalbuminemia secondary to alcoholic liver cirrhosis -as above - continues to improve without further infusions #History of Alcohol abuse -Last drink early 2019 #Chronic pancytopenia /chronic thrombocytopenia / macrocytic anemia secondary to liver cirrhosis -No signs of active bleeding, No indication for blood transfusion #Hypokalemia, chronic -C/w daily supplement #Hyperbilirubinemia due to ETOH liver disease, decompensated -F/u with GI #DVT px. -SCD, teds DISPOSITION: pending clinical improvement, cleared by PT VS,Priscila, I+O VSPriscila, I+O Laboratory Tests 08/30/20 06:00 Vital Signs Date Time Temp Pulse Resp B/P (MAP) Pulse Ox O2 Delivery O2 Flow Rate FiO2 08/30/20 08:00 96.4 75 20 119/66 (83) 97 Room Air 08/24/20 08:00 2.0 I&O- Last 24 Hours up to 6 AM 08/30/20 06:00 Intake Total 1886.0 ml Output Total 3300 ml Balance -1414.0 ml JORGE KEITA MD Aug 30, 2020 11:09
[2020-08-30] MEDS: SLF 3 ML SYR IV SCH ×2 (13:38→21:19)
[2020-08-30] MEDS: OCTREOTIDE ACETATE 100MCG/ML VIAL (J2354 PER 25MCG) SC SCH ×2 (14:56→21:19)
--- NOTE | 2020-08-30 15:08 | IPN ---
PROGRESS NOTE DATE: 08/30/2020 SUBJECTIVE: Patient seen and examined this morning at the bedside. Nursing staff recorded that he refused the 1 a.m. dose of Lasix again, but the patient tells me that he never refused anything, rather it was held because of low blood pressure. In any case, he continues to have significant drainage from the chest tube, almost a liter in the past 24 hours, and interventional radiology has declined transjugular intrahepatic portosystemic shunt (TIPS) placement. Patient denies shortness of breath at rest. Vital signs: Temperature 96.4, pulse 75, respiratory rate 20, blood pressure 119/66, saturating 97% on room air. Intake yesterday was 1.6 liters. Urine output was 2.1 liters. Chest drainage was 930, net negative 1.3 liters. Weight in the bed scale today is 103 kg. General: Patient seen awake, alert, oriented in no apparent distress. Extraocular muscles are intact. Tongue is moist. Neck is supple. Heart sounds are regular, S1, S2. There is absolutely no leg edema. Abdomen is soft and nontender. There are bowel sounds. Lungs show symmetric air entry bilaterally. No crackle or rale. He has a chest tube that is sitting from the posterior lung. Neurologic: He is oriented times three, interactive and conversational. Psychiatric: Appropriate mood and affect. LABORATORY DATA: White count 3.1, hemoglobin 10.2, platelets 50. Sodium 136, potassium 3.4, bicarbonate 32, BUN 15, creatinine 1.1, albumin 2.8. Chest x-ray today, August 30, shows no acute cardiopulmonary process with clear lung sr and no evidence of effusion. INPATIENT MEDICATIONS: He is ordered for octreotide 100 mg subcutaneous every 8 hours times three. He was also ordered for two more runs of intravenous (IV) albumin. He is also ordered for potassium chloride 40 mEq times one. Remainder of medications is unchanged from prior. PROBLEMS: 1. Recurrent large right pleural effusion. This has been an ongoing problem for the patient since July 2020. He has not had problematic ascites; rather, he has had these very large recurrent right-sided pleural effusions. It is because of a pleural peritoneal leak. He is going to need some sort of definitive procedure. Otherwise, his effusion would occur again and again, much in the same way that a cirrhotic continually produces ascites. I feel he would need either TIPS, liver transplant, PleurX catheter. In the meanwhile, until definitive management is agreed upon, we will continue with diuresis. He is getting Lasix 60 mg every 8 hours. He is getting albumin. I have ordered for octreotide as well as (as that decreases splanchnic perfusion). 2. Decompensated cirrhosis. Patient has a pleural peritoneal leak causing ascites to translocate as a pleural effusion. He is receiving albumin, Lasix, and octreotide. There is no need for midodrine at present. He is also on spironolactone and oral fluid restriction. 3. Hypokalemia. Continue spironolactone. Potassium supplementation is ordered as well. 4. Diastolic congestive heart failure, decompensated, complicated by cirrhosis as well. Continue Lasix 60 mg IV every 8 hours. He usually has one dose held overnight, either because he declines or because his blood pressure is low. He is getting spironolactone as well, and I have ordered further albumin for today. Continue oral fluid restriction. 5. CKD, stage II. Please continue to hold KHUSHBOO inhibitor, and I would recommend that he be eventually discharged off KHUSHBOO inhibitor as well. Given that he is a cirrhotic patient, he has high risk of acute kidney injury/hepatorenal syndrome and KHUSHBOO/ARB will increase that risk.
[2020-08-31] VITALS (8 sets, daily range): BP systolic 96–115; BP diastolic 54–72
[2020-08-31] MEDS: FUROSEMIDE 100MG/10ML VIAL (J1940) IV SCH ×3 (00:31→21:00)
[2020-08-31] MEDS: LEVALBUTEROL 1.25 MG/0.5 ML CONCENTRATE NEB NEB SCH ×4 (01:12→20:35)
[2020-08-31] MEDS: PERCOCET 5MG/325MG TAB PO PRN ×2 (02:45→08:10)
[2020-08-31] MEDS: OCTREOTIDE ACETATE 100MCG/ML VIAL (J2354 PER 25MCG) SC SCH (05:16)
[2020-08-31] MEDS: SLF 3 ML SYR IV SCH ×3 (05:16→21:10)
[2020-08-31 05:37] LABS: HEMATOCRIT 32.6 % (42.0-52.0); HEMOGLOBIN 10.5 g/dl (13.5-17.5); MEAN CORPUSCULAR HGB CONC 32.2 g/dl (32.0-36.5); MEAN CORPUSCULAR VOLUME 102.5 fl (80.0-96.0); RED BLOOD COUNT 3.18 10^6/uL (4.30-6.10)
[2020-08-31 05:45] LABS: PLATELET COUNT, AUTOMATED 56 10^3/uL (150-450)
[2020-08-31 06:03] LABS: ALBUMIN 2.9 GM/DL (3.2-5.2); ALT/SGPT 38 U/L (12-78); BILIRUBIN,TOTAL 3.3 MG/DL (0.2-1.0); BLOOD UREA NITROGEN 14 MG/DL (7-18); CALCIUM LEVEL 8.6 MG/DL (8.8-10.2); CARBON DIOXIDE LEVEL 31 MEQ/L (21-32); CHLORIDE LEVEL 98 MEQ/L (98-107); CREATININE FOR GFR 1.03 MG/DL (0.70-1.30); GLOMERULAR FILTRATION RATE > 60.0 (>49); GLUCOSE, FASTING 108 MG/DL (70-100); POTASSIUM SERUM 3.8 MEQ/L (3.5-5.1); SODIUM LEVEL 136 MEQ/L (136-145); TOTAL PROTEIN 5.9 GM/DL (6.4-8.2)
[2020-08-31] MEDS: FLUTICASONE HFA 44 MCG 10.6GM INHALER (FLOVENT) INH SCH ×2 (07:41→20:36)
--- NOTE | 2020-08-31 07:59 | REP ---
INDICATION: pleural effusion COMPARISON: 08/30/2020 TECHNIQUE: PA and lateral. FINDINGS: Posterior right basilar chest tube in stable position. No obvious residual pleural effusion and no evidence for pneumothorax appreciated. Lung sr are relatively stable and without obvious significant focal consolidations. Mediastinum and cardiac silhouette normal. Skeletal structures intact.. IMPRESSION: 1. Previously noted right effusion appears resolved. 2. No new areas of consolidation or pleuroparenchymal changes appreciated. <Electronically signed by Jose Qureshi > 08/31/20 [id number]
[2020-08-31] MEDS: PANTOPRAZOLE 40MG TAB (PROTONIX) PO SCH (08:05)
[2020-08-31] MEDS: LACTULOSE 20 GM/30 ML SYRUP UD PO SCH (08:05)
[2020-08-31] MEDS: MOM 30ML SUSPENSION UDC PO SCH (08:05)
[2020-08-31] MEDS: MULTIVITAMINS/MINERALS THERAP 1 TAB PO SCH (08:05)
[2020-08-31] MEDS: OMEPRAZOLE 20 MG CAP PO SCH (08:06)
[2020-08-31] MEDS: POTASSIUM CHLORIDE 10 MEQ SR TABLET PO SCH (08:06)
[2020-08-31] MEDS: DOCUSATE SODIUM 100MG CAPSULE PO SCH ×2 (08:06→21:10)
[2020-08-31] MEDS: TAMSULOSIN 0.4 MG CAP PO SCH (08:06)
[2020-08-31] MEDS ORDERED: SPIRONOLACTONE 25 MG TAB PO SCH (09:00)
--- NOTE | 2020-08-31 10:47 | IPNPDOC ---
Text Note Date of Service The patient was seen on 08/31/20. NOTE SUBJECTIVE: Patient seen and examined at bedside. No acute overnight events reported. Patient has no new medical complaints this morning. OBJECTIVE: VITAL SIGNS: See below GENERAL APPEARANCE: NAD HEENT: NC/AT, poor dentition, EOMI CARDIOVASCULAR: +S1S2, RRR Chest: CTA B/L, pigtail catheter in place ABDOMEN: Obese, distended, +BS EXTREMITIES: 2+ pitting edema ASSESSMENT: 60-year-old male with history of alcoholic liver cirrhosis with decompensated liver failure and recurrent ascites and pleural effusions, hx of thoracentesis and paracentesis admitted for recurrent right side pleural effusion 2/2 to decompensated liver cirrhosis requiring pleural drainage. PLAN: #Recurrent right side pleural effusion 2/2 to decompensated liver cirrhosis, s/p pigtail catheter insertion -Remains saturating well on RA -over 13L removed from this admission -IV lasix Q8H Q6hrs -Continue to monitor on tele, I&O, fluid restriction -If BP drops, can give midodrine- has required in the past -C/w medications below for liver cirrhosis - discussed with CT surgery - assistance appreciated - discussed with IR - assistance appreciated - has been placed on liver transplant list, will re-eval in 3-4 months regarding TIPS - octreotide started yesterday - repeat echo pending #Acute decompensated liver cirrhosis with recurrent ascites, portal HTN and pleural effusion -AST/ALT are baseline for patient -had appt with GI Dr Hancock Aug - to reschedule on discharge -C/w lasix 60 IV Q8H, lactulose, fluid restriction, daily weights - spironolactone restarted #DONITA/CKD - resolved - likely 2/2 to toradol -C/w diuresis -Nephrology following - assistance appreciated #Anasarca/ third spacing 2/2 to decompensated liver cirrhosis with portal hypertension -Complicated by recurrent ascites and pleural effusions -C/w treatment as above #Hypoalbuminemia secondary to alcoholic liver cirrhosis -as above - continues to improve without further infusions #History of Alcohol abuse -Last drink early 2019 #Chronic pancytopenia /chronic thrombocytopenia / macrocytic anemia secondary to liver cirrhosis -No signs of active bleeding, No indication for blood transfusion #Hypokalemia, chronic -C/w daily supplement #Hyperbilirubinemia due to ETOH liver disease, decompensated -F/u with GI #DVT px. -SCD, teds DISPOSITION: pending clinical improvement, cleared by PT VS,Priscila, I+O VS, Priscila, I+O Laboratory Tests 08/31/20 05:16 Vital Signs Date Time Temp Pulse Resp B/P (MAP) Pulse Ox O2 Delivery O2 Flow Rate FiO2 08/31/20 08:40 18 Room Air 08/31/20 07:43 97.6 72 111/65 (80) 96 I&O- Last 24 Hours up to 6 AM 08/31/20 06:00 Intake Total 670.0 ml Output Total 2350 ml Balance -1680.0 ml JORGE KEITA MD Aug 31, 2020 10:47
--- NOTE | 2020-08-31 13:24 | IPN ---
PROGRESS NOTE DATE: 08/31/2020 SUBJECTIVE: Mr. Okeefe experienced some diffuse abdominal pain in his lower abdomen. He has not had any nausea or vomiting. It seemed associated with starting octreotide and that has now been discontinued. His chest tube output, however, has been markedly down. I did increase his Spironolactone yesterday to 75 mg q. day and now up to 100 mg q. day. I am not sure whether his chest tube out decrease is secondary to the octreotide or to increased diuresis. OBJECTIVE: VITAL SIGNS: Show a T-max of 98.6 with a heart rate that ranges between 72 and 88 in sinus rhythm. Respiratory rate of 16-20 without the use of accessory muscles who was 94% to 96% saturated on room air and whose blood pressure is ranging between 98/58 to 115/65. INTAKE AND OUTPUT: Over the past 24 hours has been recorded as 926 in and 2324 out for a negativity of nearly 1400 mL. He has put 1350 mL out in urine and 974 mL from the chest tube. However, in the past 12 hours he has only put out 220 mL. His weight today is 101.6 kg compared to 103 kg yesterday. RESPIRATORY: His lungs show equal breath sounds on either side with normal vesicular sounds without wheezes, rhonchi, or rales. Percussion notes are full to the diaphragm. CARDIAC: Without murmurs, clicks, gallops, or rubs. I cannot feel his PMI. S1 and S2 are normal. ABDOMEN: Soft and nontender. Bowel sounds are positive. There is no hepatomegaly. No CVA tenderness. EXTREMITIES: Show no pretibial edema. No calf tenderness. No differential swelling of the upper extremities. SKIN: Warm, dry, and perfused without cyanosis or mottling, including that of the nail beds and knees. NECK: Supple. There is no jugular venous distention. No subcutaneous emphysema. Trachea is midline. MOUTH: Shows his mucous membranes to be pink and moist. Lips and gums without lesions and no thrush. EYES: Show his pupils equal and reactive. Extraocular movements are intact. Sclerae nonicteric. NEUROLOGIC: Shows II through XII intact. Normal gross motor, gross sensation intact. Gait is not tested. PSYCHIATRIC: Shows him to be awake, alert, and oriented x3 with appropriate mood and affect and conversational. LABORATORY DATA: His white count today is 4.0 with a hemoglobin and hematocrit of 10.5 and 32.6 respectively. Platelet count is 56,000 and stable. Chemistries show normal electrolytes with potassium 3.8 with a BUN and creatinine of 14 and 1.03. Glucose is 108 with a calcium of 8.6 with a corresponding albumin of 2.9. AST and ALT are 54 and 38 respectively. IMAGING: His chest x-ray shows his lungs fully expand to the chest wall. The diffuse haze in the right lower hemithorax is resolving. Costophrenic angles are sharp, but his diaphragms are flat. ASSESSMENT: 1. End-stage liver disease with cirrhosis and ascites. 2. Right-sided pleural effusion secondary to cirrhosis. 3. Thrombocytopenia secondary to cirrhosis. 4. Asthma. 5. Diastolic dysfunction. 6. Obesity. 7. Hypertension. 8. Osteoarthritis. 9. Hypoalbuminemia improved with albumin infusions. PLAN AND DISCUSSION: See my comments in the introduction. We are going to have to discontinue his octreotide. I have increased his Spironolactone dose. His chest tube output is what is holding him up and I am somewhat encouraged that he has only put out 250 in the last 12 hours. That may be secondary to the octreotide or to the diuresis.
[2020-09-01] VITALS: BP 112/62
[2020-09-01] MEDS: LEVALBUTEROL 1.25 MG/0.5 ML CONCENTRATE NEB NEB SCH ×4 (02:00→19:38)
[2020-09-01 04:00] VITALS: BP 109/70
[2020-09-01 04:58] LABS: HEMATOCRIT 34.5 % (42.0-52.0); HEMOGLOBIN 11.5 g/dl (13.5-17.5); MEAN CORPUSCULAR HEMOGLOBIN 33.9 pg (27.0-33.0); MEAN CORPUSCULAR HGB CONC 33.3 g/dl (32.0-36.5); MEAN CORPUSCULAR VOLUME 101.8 fl (80.0-96.0); RED BLOOD COUNT 3.39 10^6/uL (4.30-6.10); WHITE BLOOD COUNT 5.2 10^3/uL (4.0-10.0)
[2020-09-01 04:59] LABS: PLATELET COUNT, AUTOMATED 65 10^3/uL (150-450)
[2020-09-01 05:32] LABS: ALT/SGPT 37 U/L (12-78); BILIRUBIN,TOTAL 3.6 MG/DL (0.2-1.0); BLOOD UREA NITROGEN 16 MG/DL (7-18); CALCIUM LEVEL 8.3 MG/DL (8.8-10.2); CARBON DIOXIDE LEVEL 32 MEQ/L (21-32); CHLORIDE LEVEL 98 MEQ/L (98-107); CREATININE FOR GFR 1.07 MG/DL (0.70-1.30); GLOMERULAR FILTRATION RATE > 60.0 (>49); GLUCOSE, FASTING 88 MG/DL (70-100); POTASSIUM SERUM 3.4 MEQ/L (3.5-5.1); SODIUM LEVEL 137 MEQ/L (136-145); TOTAL PROTEIN 6.1 GM/DL (6.4-8.2)
[2020-09-01] MEDS: KETOROLAC TROMETHAMINE 10 MG TAB PO PRN ×2 (05:39→13:00)
[2020-09-01] MEDS: SLF 3 ML SYR IV SCH ×3 (05:44→20:18)
[2020-09-01] MEDS: FLUTICASONE HFA 44 MCG 10.6GM INHALER (FLOVENT) INH SCH ×2 (08:04→19:37)
[2020-09-01 08:35] VITALS: BP 115/76
--- NOTE | 2020-09-01 09:00 | IPN ---
PROGRESS NOTE DATE: 08/31/2020 SUBJECTIVE: Patient was seen and examined at the bedside today morning. He was lying in the bed. He continues to have right-sided pigtail catheter drainage. Renal function is stable. His Spironolactone dose was increased by CT surgery. He continues to be on IV Lasix and he has a good urine output. Volume status is getting better. OBJECTIVE: VITAL SIGNS: Temperature is 97.8 degrees Fahrenheit, blood pressure 113/67, pulse 72, respiratory rate 20, saturating 94% on room air. INTAKE AND OUTPUT: Urine output recorded as 1.3 liters yesterday, 450 mL by the time I saw him. His right-sided pigtail catheter had fluid output of 974 mL yesterday and 220 mL by the time I saw him. Weight on the bed scale is 101.6 kg, which is about 2 kg below his weight yesterday. GENERAL: Patient is awake, alert, and oriented x3. Laying in bed in no apparent distress. HEAD AND NECK: Extraocular muscles intact. Pupils equally round and reactive to light. Mucous membranes are moist. NECK: Supple. There is no JVD. CARDIOVASCULAR: S1, S2. Regular rate. No edema of the bilateral lower extremities. RESPIRATORY: Mildly decreased breath sounds at the bases. He has a right-sided pigtail catheter, which is draining light yellow fluid. ABDOMEN: Soft with positive bowel sounds. No organomegaly and no ascites is noted. MUSCULOSKELETAL: No clubbing or cyanosis. Pulses are 2+. CLIENT PROFESSIONAL: No focal deficits. Power is 5/5 in all extremities. LABORATORY REVIEW: CBC showed WBC 4, hemoglobin 10.5, platelets 56,000. BMP showed sodium 136, potassium 3.8, chloride 98, bicarb 31, BUN 14, creatinine 1.03 it was 1.13 yesterday. Calcium is 8.6. Total bilirubin is 3.3, AST 54, ALT 38, alkaline phosphatase 151, albumin 2.9. CURRENT INPATIENT MEDICATIONS: Patient's medications were all reviewed by myself. He was getting Lasix 60 mg IV q. 8 hourly, but because of soft blood pressure and holding parameters for the last two days almost, he is getting the Lasix only twice a day. His Spironolactone dose was increased to [address] surgery team. ASSESSMENT AND PLAN: 1. Recurrent right-sided pleural effusion. It is secondary to patient's cirrhosis and diaphragmatic defect and drainage of his ascites into the pleural cavity. He has a pigtail catheter on the right side, which is being managed by CT surgery. Patient is being diuresed well. As mentioned above, I have decreased his Lasix dose to 60 mg twice a day. Spironolactone dose was already increased by the CT surgical team. Electrolytes are within the acceptable range. 2. Chronic kidney disease stage III. Patient is tolerating high dose of diuretics despite his cirrhosis. In my opinion, patient is getting volume depleted now and soon, I would switch his diuretics to oral loop diuretics within the next 24 hours. 3. Decompensated liver cirrhosis complicated by portal hypertension and recurrent right-sided pleural effusion. Patient continues to be lactulose with no evidence of hepatic encephalopathy. Diuretic management is as mentioned above. Patient should get a transjugular intrahepatic portosystemic shunt (TIPS) procedure for skilled nursing management of his recurrent right-sided effusion. 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
--- NOTE | 2020-09-01 09:01 | REP ---
INDICATION: pleural effusion COMPARISON: 08/31/2020 TECHNIQUE: PA and lateral. FINDINGS: The mediastinum and cardiac silhouette are normal. The lung sr remain stable and without significant focal consolidation, effusion, or pneumothorax. Skeletal structures intact. The skeletal structures are intact and normal. A pigtail catheter is again identified on lateral radiograph overlying the ribs at the base of the left thoracic cavity and its position within the pleural space versus subcutaneous tissue cannot be determined. IMPRESSION: 1. No evidence for residual pleural effusion or pneumothorax. 2. No obvious acute or new pleuroparenchymal process. 3. Position of the pigtail catheter cannot definitively be determined and may be within the overlying subcutaneous tissue rather than within the pleural cavity. <Electronically signed by Jose Qureshi > 09/01/20 0885
[2020-09-01 09:17] LABS: MAGNESIUM LEVEL 2.1 MG/DL (1.8-2.4)
[2020-09-01] MEDS: DOCUSATE SODIUM 100MG CAPSULE PO SCH ×2 (09:32→20:16)
[2020-09-01] MEDS: MOM 30ML SUSPENSION UDC PO SCH (09:32)
[2020-09-01] MEDS: TAMSULOSIN 0.4 MG CAP PO SCH (09:32)
[2020-09-01] MEDS: LACTULOSE 20 GM/30 ML SYRUP UD PO SCH (09:32)
[2020-09-01] MEDS: OMEPRAZOLE 20 MG CAP PO SCH (09:32)
[2020-09-01] MEDS: MULTIVITAMINS/MINERALS THERAP 1 TAB PO SCH (09:32)
[2020-09-01] MEDS: SPIRONOLACTONE 50 MG TAB PO SCH (09:32)
[2020-09-01] MEDS: POTASSIUM CHLORIDE 10 MEQ SR TABLET PO SCH (09:33)
[2020-09-01] MEDS: PANTOPRAZOLE 40MG TAB (PROTONIX) PO SCH (09:33)
[2020-09-01] MEDS: FUROSEMIDE 100MG/10ML VIAL (J1940) IV SCH (09:34)
[2020-09-01] MEDS ORDERED: POTASSIUM CHLORIDE 10 MEQ SR TABLET PO ONE (10:45)
--- NOTE | 2020-09-01 11:05 | IPNPDOC ---
Text Note Date of Service The patient was seen on 09/01/20. NOTE SUBJECTIVE: Patient seen and examined at bedside. No acute overnight events reported. Patient has no new medical complaints this morning. OBJECTIVE: VITAL SIGNS: See below GENERAL APPEARANCE: NAD HEENT: NC/AT, poor dentition, EOMI CARDIOVASCULAR: +S1S2, RRR Chest: CTA B/L, pigtail catheter in place ABDOMEN: Obese, distended, +BS EXTREMITIES: 2+ pitting edema ASSESSMENT: 60-year-old male with history of alcoholic liver cirrhosis with decompensated liver failure and recurrent ascites and pleural effusions, hx of thoracentesis and paracentesis admitted for recurrent right side pleural effusion 2/2 to decompensated liver cirrhosis requiring pleural drainage. PLAN: #Recurrent right side pleural effusion 2/2 to decompensated liver cirrhosis, s/p pigtail catheter insertion -Remains saturating well on RA -over 13L removed from this admission -off lasix, 100 aldactone qd, 40 demadex bid - chest output has been improving -Continue to monitor on tele, I&O, fluid restriction -If BP drops, can give midodrine- has required in the past -C/w medications below for liver cirrhosis - discussed with CT surgery - assistance appreciated - discussed with IR - assistance appreciated - has been placed on liver transplant list, will re-eval in 3-4 months regarding TIPS - s/p octreotide - repeat echo pending report for interim eval for possible TIPS #Acute decompensated liver cirrhosis with recurrent ascites, portal HTN and pleural effusion -AST/ALT are baseline for patient -still to establish care with GI - dr taylor - lactulose, fluid restriction, daily weights - spironolactone, demadex #DONITA/CKD - resolved - likely 2/2 to toradol -C/w diuresis -Nephrology following - assistance appreciated #Anasarca/ third spacing 2/2 to decompensated liver cirrhosis with portal hypertension -Complicated by recurrent ascites and pleural effusions -C/w treatment as above #Hypoalbuminemia secondary to alcoholic liver cirrhosis -as above - continues to improve without further infusions #History of Alcohol abuse -Last drink early 2019 #Chronic pancytopenia /chronic thrombocytopenia / macrocytic anemia secondary to liver cirrhosis -No signs of active bleeding, No indication for blood transfusion #Hypokalemia, chronic -C/w daily supplement #Hyperbilirubinemia due to ETOH liver disease, decompensated -F/u with GI #DVT px. -SCD, teds DISPOSITION: pending clinical improvement, cleared by PT VS,Priscila, I+O VS, Priscila, I+O Laboratory Tests 09/01/20 04:19 Vital Signs Date Time Temp Pulse Resp B/P (MAP) Pulse Ox O2 Delivery O2 Flow Rate FiO2 09/01/20 08:35 97.9 78 20 115/76 (89) 95 Room Air I&O- Last 24 Hours up to 6 AM 09/01/20 06:00 Intake Total 580 ml Output Total 1145 ml Balance -565 ml JORGE KEITA MD Sep 01, 2020 11:05
[2020-09-01 12:00] VITALS: BP 90/55
[2020-09-01 15:56] VITALS: BP 99/54
[2020-09-01] MEDS: TORSEMIDE 20 MG TAB PO SCH (17:00)
[2020-09-01 20:00] VITALS: BP 101/57
[2020-09-01] MEDS: PERCOCET 5MG/325MG TAB PO PRN (20:17)
--- NOTE | 2020-09-01 22:19 | IPN ---
NEPHROLOGY PROGRESS NOTE DATE: 09/01/2020 SUBJECTIVE: The patient was seen and examined at the bedside today morning. He still has a right sided pigtail catheter. He is responding well to the diuretics. His Lasix dose was decreased to 60 mg IV twice daily yesterday. He continues to be on Spironolactone. Renal function is stable. OBJECTIVE: VITAL SIGNS: Temperature is 97.8 degrees Fahrenheit, blood pressure 99/54, pulse is 84, respiratory rate of 20, saturating 94% on room air. INTAKE AND OUTPUT: Urine output recorded as 1.2 liters yesterday, 600 mL so far today since overnight. Weight in the bed scale is stable at 101.6 kg. PHYSICAL EXAMINATION: GENERAL APPEARANCE: The patient is awake, alert, oriented x3, laying in bed in no apparent distress. HEAD AND NECK: Extraocular muscles intact. Pupils are equally round and reactive to light. Mucous membranes are moist. Neck is supple. There is no jugular venous distention. CARDIOVASCULAR: S1, S2, regular rate. EXTREMITIES: No edema of the bilateral lower extremities. RESPIRATORY: Mildly decreased breath sounds at the right base and he has a right sided pigtail catheter. ABDOMEN: Soft, positive bowel sounds, nontender, no ascites. MUSCULOSKELETAL: No clubbing, no cyanosis. Pulses are 2+. BOX FINISHER: No focal deficits. Power is 5/5 in all extremities. LAB REVIEW: CBC showed a WBC of 5.2, hemoglobin 11.5, platelet count 65. BMP showed sodium of 137, potassium 3.4, chloride 98, bicarbonate 32, BUN 16, creatinine is 1.07. Total bilirubin is 3.6. AST 60, ALT is 37, alkaline phosphatase is 132, albumin is 3. IMAGING: A chest x-ray was done today morning which showed no evidence of residual pleural effusion or pneumothorax and a pigtail catheter might be in the subcutaneous tissue. CURRENT INPATIENT MEDICATIONS: The patient's medications were all reviewed by myself. IV Lasix has been stopped. I have started the patient on Torsemide 40 mg p.o. twice daily. He continues to be on Spironolactone 100 mg p.o. daily. He was given an additional dose of potassium chloride 40 mEq times one dose. ASSESSMENT AND PLAN: 1. Recurrent right sided pleural effusion associated with cirrhosis and portal hypertension - diuretic dose has been adjusted to oral now. Torsemide 40 twice daily with Spironolactone 100 mg daily. Volume status is optimal. Management of pigtail catheter is as per CT Currently. 2. Chronic kidney disease stage 3 the patient's renal function is stable. He is on a high dose of diuretics and he has cirrhosis. I would recommend avoiding IV NSAIDs at this time as it can cause acute renal failure. 3. Decompensated cirrhosis with portal hypertension and recurrent right sided pleural effusions. The patient was evaluated by I.R. and he was not considered to be a candidate for a TIPS procedure. He would need to be referred to the [facility] in [place]. 4. Hypokalemia - The patient was given a dose of potassium chloride 40 mEq. Continue current dose of Spironolactone and daily oral potassium.
[2020-09-02] VITALS: BP 98/54
[2020-09-02] MEDS: LEVALBUTEROL 1.25 MG/0.5 ML CONCENTRATE NEB NEB SCH ×4 (02:49→20:00)
[2020-09-02 04:00] VITALS: BP 101/62
[2020-09-02] MEDS: SLF 3 ML SYR IV SCH ×3 (05:23→21:43)
[2020-09-02] MEDS: PERCOCET 5MG/325MG TAB PO PRN ×3 (05:23→23:43)
--- NOTE | 2020-09-02 05:58 | IPN ---
PROGRESS NOTE DATE: 09/01/2020 SUBJECTIVE: Mr. Okeefe is doing fairly well today. He is not complaining of shortness of breath. Understandably, he is frustrated about remaining in the hospital. His chest tube output has come down, however. OBJECTIVE: VITAL SIGNS: Show a T-max of 99.4 with a heart rate that ranges between 76 and 78 in sinus rhythm. Respiratory rate that is constantly at 20 who was 95% to 92% saturated on room air and whose blood pressure is ranging between 115/76 to 109/70. INTAKE AND OUTPUT: Over the past 24 hours has been recorded as 670 in and 1615 out for a negativity of 945 mL. He has put out 1250 mL in urine output and 365 mL in the chest tube. He has put out 100 mL in the last 12 hours. He weighs 101.6 kg, which is the same as yesterday. RESPIRATORY: His lungs show equal breath sounds on either side. There are no wheezes, rhonchi, or rales. Percussion notes are full to the diaphragm. CARDIAC: Without murmurs, clicks, gallops, or rubs. I cannot feel his PMI. S1 and S2 are normal. ABDOMEN: Soft and nontender. Bowel sounds are positive. There is no hepatomegaly. No CVA tenderness. EXTREMITIES: Show no pretibial edema. No calf tenderness. No differential swelling of the upper extremities. SKIN: Warm, dry, and perfused without cyanosis or mottling, including that of the nail beds and knees. NECK: Supple. There is no jugular venous distention. No subcutaneous emphysema. Trachea is midline. MOUTH: Shows the mucous membranes to be pink and moist. Lips and gums without lesions and no thrush. EYES: Show his pupils equal and reactive. Extraocular movements are intact. Sclerae nonicteric. NEUROLOGIC: Shows II through XII intact. Normal gross motor, gross sensation intact. Gait is not tested. PSYCHIATRIC: Shows him to be awake, alert, and oriented x3 with appropriate mood and affect and conversational. DIAGNOSTIC STUDIES: White count is 5.2 with hemoglobin and hematocrit of 11.5 and 34.5 slightly up from yesterday of 10.5 and 32.6. Platelet count is 65,000 and stable. There is no differential. Electrolytes show a potassium of 3.4 today with a BUN and creatinine of 16 and 1.07 with the remainder of his electrolytes normal. Calcium is 8.3 with an albumin of 3.0. He has now received a total of 11 units of 25% albumin 50 mL aliquots. His total bilirubin is up to 3.6. AST and ALT are 60 and 37 respectively essentially unchanged from yesterday. IMAGING: His chest x-ray today again shows the lungs fully expand to the chest wall. Costophrenic angles are sharp. I see no infiltrates. Diaphragms are flattened. IMPRESSION: 1. End-stage liver cirrhosis with metastatic hydrothorax. 2. Right side pleural effusion secondary to cirrhosis. 3. Thrombocytopenia secondary to cirrhosis. 4. Asthma. 5. Diastolic dysfunction. 6. Obesity. 7. Hypertension. 8. Osteoarthritis. 9. Hypoalbuminemia improved with albumin infusions. PLAN AND DISCUSSION: I ordered an echo a couple of days ago, which I do not yet see in the chart. I wanted to recheck his pulmonary artery pressures. Yesterday, I also increased his Spironolactone and he is on 60 mg of Lasix b.i.d. IV. I am gratified that his chest tube output is coming down. We will see what happens over the next 24 hours.
[2020-09-02 06:49] LABS: HEMATOCRIT 31.6 % (42.0-52.0); HEMOGLOBIN 10.6 g/dl (13.5-17.5); MEAN CORPUSCULAR HEMOGLOBIN 33.9 pg (27.0-33.0); MEAN CORPUSCULAR HGB CONC 33.5 g/dl (32.0-36.5); PLATELET COUNT, AUTOMATED 60 10^3/uL (150-450); RED BLOOD COUNT 3.13 10^6/uL (4.30-6.10); WHITE BLOOD COUNT 4.2 10^3/uL (4.0-10.0)
[2020-09-02 07:15] LABS: ALBUMIN 2.5 GM/DL (3.2-5.2); BILIRUBIN,TOTAL 2.3 MG/DL (0.2-1.0); CALCIUM LEVEL 8.7 MG/DL (8.8-10.2); CREATININE FOR GFR 1.33 MG/DL (0.70-1.30); GLOMERULAR FILTRATION RATE 58.4 (>49); POTASSIUM SERUM 3.7 MEQ/L (3.5-5.1); TOTAL PROTEIN 5.7 GM/DL (6.4-8.2)
--- NOTE | 2020-09-02 07:28 | ECHO ---
DATE OF PROCEDURE: 08/30/2020 Age: 60 Gender: Male Height: 71 inches Weight: 227 pounds Body surface area: 2.22 m2 PATIENT LOCATION: Inpatient PCU, Room 3226. REFERRING PHYSICIAN: Kelvin Castro M.D. INDICATION: Heart failure. MEASUREMENTS: 2D Measurements: RV 4.3 cm LV 5.0 cm Septum 1.2 cm Posterior wall 1.2 cm Aortic Root 4.2 cm LA 4.3 cm LVEF 75% Doppler Measurements: AV 1.54 m/s LVOT 0.99 m/s LVOT diameter 2.1 cm MV-E 80, A 56, E/A ratio 1.4 Early mitral deceleration time 174 msec E prime medial 8.6, A prime medial 12, E prime lateral 13 Average E/E prime ratio 7.4/PCWP 11 mmHg PV 0.95 m/s Pulmonary artery acceleration time 121 msec RVSP 38 mmHg (using estimated mean central venous pressure of 10 mmHg) IVC Could not be visualized COMMENTS: Normal sinus rhythm without intraventricular conduction disturbance. Technically challenging study in light of the patients body habitus, but diagnostically useful information was still obtained. M-mode and two-dimensional echocardiography was performed with pulse, continuous wave, color flow, and tissue Doppler studies. Borderline left ventricular hypertrophy with hyperkinetic wall motion. Mildly dilated left atrium with currently normal Doppler assessment of left ventricular diastolic function and estimated mean left atrial pressure. Mildly dilated right heart chambers with normal right ventricular free wall motion. Doppler evidence of at least mild pulmonary hypertension. His IVC could not be visualized to more accurately estimate his central venous pressure. Mild dilated aortic root. Moderate degenerative changes of the aortic valvular structures, but no significant left ventricular outflow tract obstruction and only mild insufficiency. Normal appearing and functioning mitral valve. Normal appearing tricuspid valve with mild insufficiency. No apparent intracranial mass or pericardial effusion. MTDD
[2020-09-02 08:00] VITALS: BP 104/65
[2020-09-02] MEDS: FLUTICASONE HFA 44 MCG 10.6GM INHALER (FLOVENT) INH SCH ×2 (08:08→20:48)
[2020-09-02] MEDS: POTASSIUM CHLORIDE 10 MEQ SR TABLET PO SCH (09:46)
[2020-09-02] MEDS: MOM 30ML SUSPENSION UDC PO SCH (09:46)
[2020-09-02] MEDS: LACTULOSE 20 GM/30 ML SYRUP UD PO SCH (09:46)
[2020-09-02] MEDS: DOCUSATE SODIUM 100MG CAPSULE PO SCH ×2 (09:47→21:43)
[2020-09-02] MEDS: SPIRONOLACTONE 50 MG TAB PO SCH (09:47)
[2020-09-02] MEDS: MULTIVITAMINS/MINERALS THERAP 1 TAB PO SCH (09:47)
[2020-09-02] MEDS: PANTOPRAZOLE 40MG TAB (PROTONIX) PO SCH (09:47)
--- NOTE | 2020-09-02 09:47 | REP ---
INDICATION: pleural effusion COMPARISON: 09/01/2020 TECHNIQUE: PA and lateral. FINDINGS: Mediastinum and cardiac silhouette are normal. Lung sr are clear and without obvious residual effusion or pneumothorax. No new acute consolidation. Skeletal structures are intact. The exact position of the pleural catheter based on lateral radiograph is again indeterminate and may or may not be within the pleural space versus subcutaneous tissue. IMPRESSION: No obvious acute process and no obvious significant residual pleural effusion or pneumothorax. Questionable position to the pleural catheter. <Electronically signed by Jose Qureshi > 09/02/20 0943
[2020-09-02] MEDS: OMEPRAZOLE 20 MG CAP PO SCH (09:48)
[2020-09-02] MEDS: TORSEMIDE 20 MG TAB PO SCH (09:54)
[2020-09-02] MEDS: TAMSULOSIN 0.4 MG CAP PO SCH (09:54)
[2020-09-02 12:00] VITALS: BP 120/80
--- NOTE | 2020-09-02 12:29 | IPN ---
PROGRESS NOTE DATE: 09/02/2020 SUBJECTIVE: Mr. Okeefe has stabilized his chest tube output now at 390 from 365 yesterday. His urine output is not as good as it has been, however. His weight is also up. OBJECTIVE: VITAL SIGNS: Show a T-max of 97.9 with a heart rate that ranges between 70 and 74 in sinus rhythm. Respiratory rate of 16 to 18 without the use of accessory muscles who is 96% to 98% saturated on room air and whose blood pressure is ranging between 98/54 to 104/65. INTAKE AND OUTPUT: Over the past 24 hours has been recorded as 930 in and 1140 out for a negativity of 200 mL. There is no air leak and he weighs 103.3 kg today compared to 101.6 kg yesterday. He has put out 75 mL in the chest tube in the last 12 hours. RESPIRATORY: His lungs show equal breath sounds on either side. I hear no wheezes, rhonchi, or rales. Percussion notes are full to the diaphragm. CARDIAC: Without murmurs, clicks, gallops, or rubs. I cannot feel his PMI. S1 and S2 are normal. ABDOMEN: Soft and nontender. Bowel sounds are positive. There is no hepatomegaly that I can feel through his obesity. There is no CVA tenderness. EXTREMITIES: Show 1+ pretibial edema on either side. No calf tenderness. No differential swelling of the upper extremities. SKIN: Warm, dry, and perfused without cyanosis or mottling, including that of the nail beds and knees. NECK: Supple. There is no jugular venous distention. No subcutaneous emphysema. Trachea is midline. MOUTH: Shows his mucous membranes to be pink and moist. Lips and gums without lesions and no thrush. EYES: Show his pupils equal and reactive. Extraocular movements are intact. Sclerae nonicteric. NEUROLOGIC: Shows II through XII intact. Normal gross motor, gross sensation intact. Gait is not tested. PSYCHIATRIC: Shows him to be awake, alert, and oriented x3 with appropriate mood and affect and conversational. He is of course quite frustrated about being in the hospital, but understands. DIAGNOSTIC STUDIES: His white count is 4.2 with hemoglobin and hematocrit of 10.6 and 31.8 respectively; it was a little bit less than 11.5 and 34.5 yesterday. Platelet count is 60,000 and stable. Chemistries today show a sodium of 134 with a potassium of 3.7. BUN and creatinine are 22 and 1.33 with a glucose of 107 and 8.7 respectively. Total bilirubin is down to 2.3 from 3.6 yesterday with an AST and ALT of 66 and 39 respectively. Albumin is 2.5 with a corresponding calcium of 8.7. His chest x-ray today shows his lungs fully expand to the chest wall with sharp costophrenic angles, but flat diaphragms. I do not see any infiltrates. IMPRESSION: 1. 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 2. Right-sided pleural effusion secondary to cirrhosis. 3. Thrombocytopenia secondary to cirrhosis. 4. Asthma. 5. Diastolic dysfunction. 6. Obesity. 7. Hypertension. 8. Osteoarthritis. 9. Hypoalbuminemia improved with albumin infusions. PLAN AND DISCUSSION: I am gratified that the chest tube output is not significantly up. I would like it to go down some more before I remove the catheter. We are getting to the point where his diuresis is starting to affect his kidney function, and we are now between a rock and a hard place with regard to diuresis. His echocardiogram done 08/30/2020, shows mild pulmonary hypertension with mildly dilated right heart chambers. His central venous pressure could not be estimated because his inferior vena cava (IVC) could not be visualized. There is mild tricuspid insufficiency. I will therefore, continue his chest tube output drainage. He only has mild pulmonary hypertension, which is consistent with the pulmonary artery acceleration time of 95 msec seen in his last echo in 02/2020.
--- NOTE | 2020-09-02 12:32 | IPNPDOC ---
Text Note Date of Service The patient was seen on 09/02/20. NOTE SUBJECTIVE: Patient seen and examined at bedside. No acute overnight events reported. Patient has no new medical complaints this morning. OBJECTIVE: VITAL SIGNS: See below GENERAL APPEARANCE: NAD HEENT: NC/AT, poor dentition, EOMI CARDIOVASCULAR: +S1S2, RRR Chest: CTA B/L, pigtail catheter in place ABDOMEN: Obese, distended, +BS EXTREMITIES: trace peripheral edema ASSESSMENT: 60-year-old male with history of alcoholic liver cirrhosis with decompensated liver failure and recurrent ascites and pleural effusions, hx of thoracentesis and paracentesis admitted for recurrent right side pleural effusion 2/2 to decompensated liver cirrhosis requiring pleural drainage. #Recurrent right side pleural effusion - 2/2 to end stage liver cirrhosis with metastatic hydrothorax - s/p pigtail catheter insertion -Remains saturating well on RA -over 13L removed from this admission -off lasix, 100 aldactone qd, discontinue 40 demadex bid - chest output has been improving -Continue to monitor on tele, I&O, fluid restriction -If BP drops, can give midodrine- has required in the past -C/w medications below for liver cirrhosis - discussed with CT surgery - assistance appreciated - discussed with IR - assistance appreciated - has been placed on liver transplant list, will re-eval in 3-4 months regarding TIPS - s/p octreotide - repeat echo pending report for interim eval of pulmonary pressures for possible TIPS #Acute decompensated liver cirrhosis with recurrent ascites, portal HTN and pleural effusion -AST/ALT are baseline for patient -still to establish care with GI - dr taylor - lactulose, fluid restriction, daily weights - spironolactone #DONITA/CKD - resolved - but slight bump in creatinine today - initially likely 2/2 to toradol -C/w diuresis -Nephrology following - assistance appreciated #Anasarca/ third spacing 2/2 to decompensated liver cirrhosis with portal hypertension -Complicated by recurrent ascites and pleural effusions -C/w treatment as above #Hypoalbuminemia secondary to alcoholic liver cirrhosis -as above - continues to improve s/p albumin infusion #HFpEF #obesity #History of Alcohol abuse -Last drink early 2019 #Chronic pancytopenia /chronic thrombocytopenia / macrocytic anemia secondary to liver cirrhosis -No signs of active bleeding, No indication for blood transfusion #Hypokalemia, chronic -C/w daily supplement #Hyperbilirubinemia due to ETOH liver disease, decompensated -F/u with GI #DVT px. -SCD, teds DISPOSITION: pending clinical improvement, pending echocardiogram, removal of chest tube, possible re-eval for TIPS; cleared by PT VS,Priscila, I+O VS, Priscila, I+O Laboratory Tests 09/02/20 06:28 Vital Signs Date Time Temp Pulse Resp B/P (MAP) Pulse Ox O2 Delivery O2 Flow Rate FiO2 09/02/20 08:00 96.9 73 16 104/65 (78) 96 Room Air I&O- Last 24 Hours up to 6 AM 09/02/20 06:00 Intake Total 930 ml Output Total 1165 ml Balance -235 ml JORGE KEITA MD Sep 02, 2020 12:26
[2020-09-02 16:00] VITALS: BP 130/60
--- NOTE | 2020-09-02 18:15 | IPNPDOC ---
Subjective Date Seen The patient was seen on 09/02/[address] Dakota Ledbetter and me. Subjective Chief Complaint/HPI Pt reports no acute complaints and nursing staff denies events overnight. Pt states that he is feeling a lot better as he sits up easily in bed and converses with ease. General: Reports: Normal Appetite Constitutional: Denies: Chills, Fever, Malaise, Night Sweats, Weakness, Fatigue, Weight Loss, Lethargy, Other Objective Physical Examination General Exam: Positive: Alert, Cooperative, No Acute Distress Heart Exam: Positive: Rate Normal, Regular Rhythm, Normal S1, Normal S2; Negative: Gallops, Murmurs, Rubs Abdomen Exam: Positive: Normal bowel sounds Extremity Exam: Positive: Normal pulses; Negative: Edema Psych Exam: Positive: Mental status NL Assessment /Plan Assessment #CKD Stage 3: Pt's creatinine level increased a little so tonight's torsemide dose will be held, especially since pt is no longer in fluid overload state. Discontinue Toradol due to elevated Cr level. #Hypokalemia: Continue spironolactone administration. Continue administration of potassium chloride. #Recurrent right-sided pleural effusion a/w cirrhosis: Pt's lung exam is clear at this time. Chronic thrombocytopenia/pancytopenia present. No indication for transfusion at this time. Plan/VTE VTE Prophylaxis Ordered?: No GME ATTESTATION My faculty preceptor for this patient encounter was physically present during the encounter and was fully available. All aspects of the patient interview, examination, medical decision making process, and medical care plan development were reviewed and approved by the faculty preceptor. The faculty preceptor is aw are and concurs with the plan as stated in the body of this note and will attest to such by his/her cosignature. VS, I&O, 24H, Fishbone Vital Signs/I&O Vital Signs Date Time Temp Pulse Resp B/P (MAP) Pulse Ox O2 Delivery O2 Flow Rate FiO2 09/02/20 17:40 20 Room Air 09/02/20 16:00 97.5 88 130/60 (83) 96 I&O- Last 24 Hours up to 6 AM 09/02/20 06:00 Intake Total 930 ml Output Total 1165 ml Balance -235 ml Laboratory Data 24H LABS Laboratory Tests 2 09/02/20 06:28: Nucleated Red Blood Cells % (auto) 0.0, Immature Platelet Fraction 4.7, Anion Gap 3L, Glomerular Filtration Rate 58.4, Calcium Level 8.7L, Total Bilirubin 2.3H, Aspartate Amino Transf (AST/SGOT) 66H, Alanine Aminotransferase (ALT/SGPT) 39, Alkaline Phosphatase 167H, Total Protein 5.7L, Albumin 2.5L, Albumin/Globulin Ratio 0.8 CBC/BMP Laboratory Tests 09/02/20 06:28 Microbiology Microbiology 08/23/20 Acid Fast Stain, Received Pending 08/23/20 Mycobacterial Culture, Received Pending 08/23/20 Fungal Smear, Received Pending 08/23/20 Fungal Culture, Received Pending 08/23/20 Gram Stain - Final, Complete 08/23/20 Anaerobic Culture - Final, Complete 08/23/20 Body Fluid Culture - Final, Complete Propionibacterium Acnes Attending Note Attending Note Pt was seen with the resident Assessment: DONITA on CKD3 Etoh Cirrhosis with portal HTN and Recurrent Rt sided pleural effusion Plan: Hold loop diuretic today. cont spironolactone. Pigtail cather in Rt pleural cavity. Avoid use of Ketorolac/NSAID due to DONITA. Cirrhosis and use of high dose diuretics. Rio Ledbetter DO Sep 02, 2020 18:15 DAKOTA LEDBETTER MD Sep 02, 2020 22:07
[2020-09-02 20:00] VITALS: BP 100/62
[2020-09-03] VITALS: BP 102/56
[2020-09-03] MEDS: LEVALBUTEROL 1.25 MG/0.5 ML CONCENTRATE NEB NEB SCH ×2 (02:00→08:00)
[2020-09-03 04:00] VITALS: BP 99/58
[2020-09-03] MEDS: SLF 3 ML SYR IV SCH (05:28)
[2020-09-03 06:02] LABS: HEMOGLOBIN 10.8 g/dl (13.5-17.5); MEAN CORPUSCULAR HEMOGLOBIN 32.9 pg (27.0-33.0); MEAN CORPUSCULAR HGB CONC 32.7 g/dl (32.0-36.5); MEAN CORPUSCULAR VOLUME 100.6 fl (80.0-96.0); RED BLOOD COUNT 3.28 10^6/uL (4.30-6.10); WHITE BLOOD COUNT 5.6 10^3/uL (4.0-10.0)
[2020-09-03 06:05] LABS: PLATELET COUNT, AUTOMATED 60 10^3/uL (150-450)
[2020-09-03 06:30] LABS: ALBUMIN 2.8 GM/DL (3.2-5.2); CALCIUM LEVEL 8.3 MG/DL (8.8-10.2); CREATININE FOR GFR 1.31 MG/DL (0.70-1.30); GLOMERULAR FILTRATION RATE 59.4 (>49); POTASSIUM SERUM 3.9 MEQ/L (3.5-5.1); TOTAL PROTEIN 5.8 GM/DL (6.4-8.2)
[2020-09-03 08:00] VITALS: BP 117/72
[2020-09-03] MEDS: MOM 30ML SUSPENSION UDC PO SCH (09:00)
--- NOTE | 2020-09-03 09:05 | REP ---
INDICATION: pleural effusion, chest tube COMPARISON: 09/02/2020 TECHNIQUE: PA and lateral. FINDINGS: The mediastinum and cardiac silhouette are normal. The lung sr are essentially stable and very minimal basilar atelectasis cannot be excluded along with small right pleural reaction. No significant effusion identified. No pneumothorax appreciated. Lateral view does not demonstrate the right basilar pigtail catheter to be within the pleural space and correlation is recommended. IMPRESSION: Very minimal basilar atelectasis and possible small right pleural reaction. Position of the pigtail catheter within the right pleural space cannot be confirmed. <Electronically signed by Jose Qureshi > 09/03/20 0902
[2020-09-03] MEDS: LACTULOSE 20 GM/30 ML SYRUP UD PO SCH (10:23)
[2020-09-03] MEDS: PANTOPRAZOLE 40MG TAB (PROTONIX) PO SCH (10:23)
[2020-09-03] MEDS: DOCUSATE SODIUM 100MG CAPSULE PO SCH (10:24)
[2020-09-03] MEDS: MULTIVITAMINS/MINERALS THERAP 1 TAB PO SCH (10:24)
[2020-09-03] MEDS: SPIRONOLACTONE 50 MG TAB PO SCH (10:24)
[2020-09-03] MEDS: POTASSIUM CHLORIDE 10 MEQ SR TABLET PO SCH (10:24)
[2020-09-03] MEDS: TAMSULOSIN 0.4 MG CAP PO SCH (10:24)
[2020-09-03] MEDS: OMEPRAZOLE 20 MG CAP PO SCH (10:24)
[2020-09-03] MEDS: TORSEMIDE 20 MG TAB PO SCH (10:25)
[2020-09-03] MEDS: FLUTICASONE HFA 44 MCG 10.6GM INHALER (FLOVENT) INH SCH (11:44)
[2020-09-03 12:00] VITALS: BP 115/56
--- NOTE | 2020-09-03 14:37 | DS.PDOC ---
Discharge Summary General Date of Admission Aug 23, 2020 at 12:17 Date of Discharge 09/03/20 Attending Physician: Martha Arevalo MD Discharge Summary HISTORY OF PRESENT ILLNESS: 60-year-old male with history of alcoholic liver cirrhosis with decompensated liver failure and recurrent ascites, recurrent pleural effusions requiring thoracentesis and paracentesis recently admitted (08/03-) who presented to [facility] ER with chief complaint of increased SOB over the past several weeks. The patient was seen by his primary care provider at the end of last week and she doesn't x-ray showing increasing fluid on the right lung. He was told to have a repeat x-ray done on 08/21/2020 which (according to patient but not in our system) showed right pleural effusion increased from prior examination. His PCP told him to come to the ER but he waited until today to be seen. He has had associated weight gain, increasing lower extremity edema, shortness of breath, difficulty ambulating due to dyspnea and exertion and nonproductive cough. He denies any chest pain, fever, chills, nausea, vomiting, hematemesis, bright red blood per rectum, melena, or black tarry stools. Last alcoholic drink was early in Spring 2019. He has a scheduled new patient appointment with GI (Dr. Taylor in August 2020) and outpatient TIPS procedure with Dr. Waters 08/27/2020. He admits to not being compliant with low salt diet at home but states he takes his meds daily. In the ER, VS were stable. Repeat CXR showed moderate to large right pleural effusion increased from prior examination with presumed underlying pulmonary pathology. Patient O2 sats dropped to 80's on RA with movement and he was placed on 2 L NC, he appeared to be sitting in bed, no acute distress. Dr. Castro (CT surgery) was consulted for right pleural effusion drainage. CT chest was ordered STAT. Patient was admitted for acute respiratory failure 2/2 to mod-severe recurrent pleural effusion 2/2 to decompensated liver disease. HOSPITAL COURSE: Patient underwent right side pigtail cath placement until 09/03/20 and drainage of right side pleural effusion. He was followed closely by nephrology, CT surgery, IR. His DONITA on CKD was likely 2/2 to toradol and later to diuresis. IR evaluated and did not find him to be candidate for TIPS but referred him to [facility] for liver transplant. He was cleared by PT. Patient was later discharged home on 09/03/20 to f/u with CT surgery, nephrology, GI (new patient appt) and interventional radiology in 3 months. AT time of discharge, he denied chest pain, n/v/d, shortness of breath. PAST MEDICAL HISTORY: LVEF65% Grade 1 LV diastolic dysfunction, Asthma, alcoholic liver cirrhosis with recurrent ascites, pleural effusions and chronic thrombocytopenia, morbid obesity, asthma, hypertension, osteoarthritis PAST SURGICAL HISTORY: Multiple thoracentesis and paracentesis due to decompensated liver cirrhosis, bilateral inguinal hernia surgery, right knee arthroscopy, left fourth finger tendon repair SOCIAL HISTORY: Admits to marijuana use prior cigar use. Prior alcohol abuse, last drink was spring 2019. Lives with his girlfriend at home. 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 FAMILY HISTORY: Father age 78 with heart disease. Mother age 76. Unknown medical problems asthma in brother and sister ALLERGIES: Please see below. DISCHARGE MEDICATIONS: Please see below. PHYSICAL EXAM: VITAL SIGNS: See below GENERAL APPEARANCE: NAD HEENT: NC/AT, poor dentition, EOMI CARDIOVASCULAR: +S1S2, RRR Chest: CTA B/L, pigtail catheter in place ABDOMEN: Obese, distended, +BS, no fluid wave EXTREMITIES: trace peripheral edema ASSESSMENT: 60-year-old male with history of alcoholic liver cirrhosis with decompensated liver failure and recurrent ascites and pleural effusions, hx of thoracentesis and paracentesis admitted for recurrent right side pleural effusion 2/2 to decompensated liver cirrhosis requiring pleural drainage. 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 Waters) -Referred for liver transplant through IR to [facility]. Dr. Waters would like to see in office in 3 months. -Still to establish care with GI - dr taylor, in the next several weeks #CKD stage III -Slight incr in creatinine today -Initially likely 2/2 to toradol, decreased torsemide to daily today -Per nephro, c/w daily torsemide in addition to spironolactone -Nephrology to f/u with him within 2 weeks as o/p #Anasarca/ third spacing 2/2 to decompensated liver cirrhosis with portal hypertension -Complicated by recurrent ascites and pleural effusions -C/w treatment as above #Hypoalbuminemia secondary to alcoholic liver cirrhosis -as above - continues to improve s/p albumin infusion #HFpEF -Most recent echo 07/30/21 showed EF > 70% #Obesity -Complicating care -F/u PCP #History of Alcohol abuse -Last drink early 2019 #Chronic pancytopenia /chronic thrombocytopenia / macrocytic anemia secondary to liver cirrhosis -No signs of active bleeding, No indication for blood transfusion #Hypokalemia, chronic -C/w daily supplement #Hyperbilirubinemia due to ETOH liver disease, decompensated -F/u with GI #DVT px. -SCD, teds DISPOSITION: Discharged home today in improved condition with follow ups being arranged for CT surgery in 2 weeks, nephrology 2 weeks, IR in 3 months and confirming new patient appt with GI. TIME SPENT ON DISCHARGE: Greater than 30 minutes. Vital Signs/I&Os Vital Signs Date Time Temp Pulse Resp B/P (MAP) Pulse Ox O2 Delivery O2 Flow Rate FiO2 09/03/20 12:00 98.8 84 18 115/56 (75) 89 Room Air I&O- Last 24 Hours up to 6 AM 09/03/20 05:59 Intake Total 1140 ml Output Total 2570 ml Balance -1430 ml Laboratory Data Labs 24H Laboratory Tests 2 09/03/20 05:44: Nucleated Red Blood Cells % (auto) 0.0, Anion Gap 6L, Glomerular Filtration Rate 59.4, Calcium Level 8.3L, Total Bilirubin 3.0H, Aspartate Amino Transf (AST/SGOT) 74H, Alanine Aminotransferase (ALT/SGPT) 43, Alkaline Phosphatase 178H, Total Protein 5.8L, Albumin 2.8L, Albumin/Globulin Ratio 0.9 CBC/BMP Laboratory Tests 09/03/20 05:44 Discharge Medications Scheduled Docusate Sodium (Dok) 100 Mg Capsule, 100 MG PO BID Fluticasone Propionate (Flovent Hfa) 44 Mcg/Act Aer.w.adap, 1 PUFF INH BID, (Reported) Lactulose (Constulose) 10 Gm/15 Ml Solution, 30 ML PO DAILY, (Reported) Multivitamin (Multivitamins) 1 Each Tablet, 1 TAB PO DAILY, (Reported) Omeprazole (Omeprazole) 40 Mg Capsule.dr, 40 MG PO DAILY, (Reported) Potassium Chloride (Potassium Chloride) 10 Meq Tablet.er, 10 MEQ PO DAILY, (Reported) Spironolactone (Spironolactone) 100 Mg Tablet, 100 MG PO DAILY, (Reported) Tamsulosin Hcl (Tamsulosin HCl) 0.4 Mg Capsule, 0.4 MG PO DAILY, (Reported) Torsemide (Torsemide) 20 Mg Tablet, 40 MG PO DAILY Scheduled PRN Albuterol Sulfate (Ventolin Hfa) 18 Gm Hfa.aer.ad, 2 PUFFS INH QID PRN for SOB/WHEEZING, (Reported) Allergies Coded Allergies: POLLEN (Verified Allergy, Unknown, 05/22/20) Martha Arevalo MD Sep 03, 2020 14:37
[2020-09-03] MEDS ORDERED: TORS20TA2 PO (14:42)
[2020-09-03] MEDS ORDERED: DOK1CAP7 PO (14:42)
--- NOTE | 2020-09-03 16:08 | IPN ---
PROGRESS NOTE DATE: 09/03/2020 SUBJECTIVE: Mr. Okeefe is doing fairly well today. He has put out considerably less from the chest catheter and I am prepared to remove it today. He is breathing well and ambulating well. OBJECTIVE: VITAL SIGNS: Show a T-max of 98.8 with a heart rate that ranges between 71 and 84 in sinus rhythm. Respiratory rate that is constant 18 who is 89% to 98% saturated on room air and whose blood pressure is ranging between 99/58 to 117/72. INTAKE AND OUTPUT: Over the past 24 hours has been recorded as 1140 in and 2320 out for a negativity of 1180 mL. He has put out 2175 mL out in urine and 145 mL in the chest catheter. There is no air leak. He weighs 103.1 kg today compared to 103.3 kg yesterday. His admission weight was 111.3 kg. RESPIRATORY: He has equal breath sounds on either side. Percussion notes are full to the diaphragm. I hear no wheezes, rhonchi, or rales. CARDIAC: Without murmurs, clicks, gallops, or rubs. I cannot feel his PMI. S1 and S2 are normal. ABDOMEN: Soft and nontender. Bowel sounds are positive. There is no hepatomegaly. No CVA tenderness. EXTREMITIES: Show no pretibial edema. No calf tenderness. No differential swelling of the upper extremities. SKIN: Warm, dry, and perfused without cyanosis or mottling, including that of the nail beds and knees. NECK: Supple. There is no jugular venous distention. No subcutaneous emphysema. Trachea is midline. MOUTH: Shows his mucous membranes to be pink and moist. Lips and gums without lesions and no thrush. EYES: Show his pupils equal and reactive. Extraocular movements are intact. Sclerae are mildly icteric. NEUROLOGIC: Shows II through XII intact. Normal gross motor, gross sensation intact. Gait is not tested. PSYCHIATRIC: Shows him to be awake, alert, and oriented x3 with appropriate mood and affect and conversational. DIAGNOSTIC STUDIES: His white count today is 5.6 with a hemoglobin and hematocrit of 10.8 and 33.1 slightly up from 10.6 and 31.6 yesterday, most likely secondary to hemoconcentration. Platelet count is 60,000 and stable. There is no differential. His electrolytes show sodium 135 with a potassium of 3.9. BUN and creatinine are 20 and 1.31, essentially unchanged from yesterday and has plateaued. Calcium of 8.3 with a total bilirubin of 3.0 and an albumin of 2.8. His chest x-ray shows his lungs fully expand to the chest wall with sharp costophrenic angles; however, with flat diaphragms. I see no infiltrates. IMPRESSION: 1. End-stage liver disease with cirrhosis and ascitic. 2. Right-sided pleural effusion secondary to cirrhosis. 3. Thrombocytopenia secondary to cirrhosis. 4. Asthma. 5. Diastolic dysfunction. 6. Obesity. 7. Hypertension. 8. Osteoarthritis. 9. Hypoalbuminemia, improved with albumin infusions. PLAN AND DISCUSSION: I will remove the chest catheter today. I see no reason why he could not go home today. I will see him back in the office in two weeks with a follow-up chest x-ray. He will need to be continuously diuresed as an outpatient and followed closely by his primary care physicians.
--- NOTE | 2020-09-03 17:59 | IPNPDOC ---
Subjective Date Seen The patient was seen on 09/03/[address] Dakota Ledbetter and me. Subjective Chief Complaint/HPI Pt is seen this morning with no reports of events overnight. Pt denies any adverse events over night and states that his legs are still doing well having had only one dose of torsemide yesterday. General: Denies: ROS Unobtainable, Chills, Night Sweats, Fatigue, Malaise, Normal Appetite, Other Symptoms Constitutional: Denies: Chills, Fever, Malaise, Night Sweats, Weakness, Fatigue, Weight Loss, Lethargy, Other Cardiovascular: Denies: Chest Pain, Palpitations Gastrointestinal: Denies: Nausea, Vomiting Objective Physical Examination General Exam: Positive: Alert, Cooperative, No Acute Distress Eye Exam: Positive: Sclera icteric Heart Exam: Positive: Rate Normal, Regular Rhythm, Normal S1, Normal S2; Negative: Gallops, Murmurs, Rubs Abdomen Exam: Positive: Normal bowel sounds Extremity Exam: Positive: Normal pulses; Negative: Edema Psych Exam: Positive: Mental status NL Assessment /Plan Assessment #CKD Stage 3: Continue pt on only one dose of torsemide since pt's edema is well-controlled on this dose and decreases the adverse effect (compared to two doses per day) on the pt's Cr. #Hypokalemia: Continue spironolactone administration. Continue administration of potassium chloride. #Recurrent right-sided pleural effusion a/w cirrhosis: Pt's lung exam is clear at this time. Chronic thrombocytopenia/pancytopenia present. No indication for transfusion at this time. Plan/VTE VTE Prophylaxis Ordered?: No GME ATTESTATION My faculty preceptor for this patient encounter was physically present during the encounter and was fully available. All aspects of the patient interview, examination, medical decision making process, and medical care plan development were reviewed and approved by the faculty preceptor. The faculty preceptor is aware and concurs with the plan as stated in the body of this note and will attest to such by his/her cosignature. VS, I&O, 24H, Fishbone Vital Signs/I&O Vital Signs Date Time Temp Pulse Resp B/P (MAP) Pulse Ox O2 Delivery O2 Flow Rate FiO2 09/03/20 12:00 98.8 84 18 115/56 (75) 89 Room Air I&O- Last 24 Hours up to 6 AM 09/03/20 05:59 Intake Total 1140 ml Output Total 2570 ml Balance -1430 ml Laboratory Data 24H LABS Laboratory Tests 2 09/03/20 05:44: Nucleated Red Blood Cells % (auto) 0.0, Anion Gap 6L, Glomerular Filtration Rate 59.4, Calcium Level 8.3L, Total Bilirubin 3.0H, Aspartate Amino Transf (AST/SGOT) 74H, Alanine Aminotransferase (ALT/SGPT) 43, Alkaline Phosphatase 178H, Total Protein 5.8L, Albumin 2.8L, Albumin/Globulin Ratio 0.9 CBC/BMP Laboratory Tests 09/03/20 05:44 Attending Note Attending Note Etoh Cirrhosis, Protal HTN, Recurrent Rt sided pleural effusion. s/p Rt sided pigtail catheter.CKD3 Decrease Torsemide 40 mg once a day. Cont spironolactone. Rest of diuretic adjustment as outpatient. Rio Ledbetter DO Sep 03, 2020 17:55 DAKOTA LEDBETTER MD Sep 05, 2020 19:33
[2020-09-04] MEDS ORDERED: TORSEMIDE 20 MG TAB PO SCH (09:00)
== END 2020-09-03 15:41 | disposition home or self-care (01) | DRG 433 ==
LOC: M ED 10:07 → M ED INP 12:17 → ENRESERV 12:30 → M PCU 14:00
PROVIDERS: ADMIT Internal Medicine; ATTEND Internal Medicine
PROC: 0W9930Z Drainage of Right Pleural Cavity with Drainage Device, Percutaneous Approach (ICD-10-PCS; principal; 2020-08-23)
DX: K70.31 Alcoholic cirrhosis of liver with ascites (principal); J90 Pleural effusion, not elsewhere classified; I13.0 Hypertensive heart and chronic kidney disease with heart failure and stage 1 through stage 4 chronic kidney disease, or unspecified chronic kidney disease; I50.32 Chronic diastolic (congestive) heart failure; K76.6 Portal hypertension; D61.818 Other pancytopenia; D68.4 Acquired coagulation factor deficiency; N17.9 Acute kidney failure, unspecified; N18.30 Chronic kidney disease, stage 3 unspecified; E88.09 Other disorders of plasma-protein metabolism, not elsewhere classified; E87.6 Hypokalemia; F12.90 Cannabis use, unspecified, uncomplicated; E66.9 Obesity, unspecified; D69.6 Thrombocytopenia, unspecified; Z79.899 Other long term (current) drug therapy; J45.909 Unspecified asthma, uncomplicated; M19.90 Unspecified osteoarthritis, unspecified site; D53.9 Nutritional anemia, unspecified; K70.40 Alcoholic hepatic failure without coma

== ENCOUNTER → 2020-08-27 | Outpatient (POV) | payer MEDICARE ==
[~2020-08-27] MED LIST changes: +POTA1TAB23 PO
--- NOTE | 2020-08-28 14:57 | IRCOV ---
[facility] IR Consult Office Visit IR Consult Office Visit DATE: Aug 27, 2020 Patient agreed to this telephone consultation. I spent 30 minutes reviewing patient's records, imaging and talking to the patient. REASON FOR CONSULTATION/CHIEF COMPLAINT: End-stage liver disease. Hepatic hydrothorax and refractory ascites. Referred for TIPS evaluation. HISTORY OF PRESENT ILLNESS: 60-year-old male with alcohol-related cirrhosis presents for TIPS evaluation. Patient states his last alcohol intake was summer of last year. At his highest intake he reports drinking a bottle of liquor a week. He is not established with gastroenterology. He has never been evaluated for transplant. He states he first noticed abdominal swelling summer of last year and required paracentesis twice, once in February and once in June. More recently in the last few weeks he noted increased shortness of breath and was diagnosed with a right pleural effusion. This has since been tapped and he now has a chest drain in place. He denies hematemesis or melena. He denies prior encephalopathy or memory issues. He states he's compliant with his diuretic medication at home but he is not sure what he takes. Current diuretics Lasix 60 mg daily and spironolactone 100 mg daily. ALLERGIES: Please see below. HOME MEDICATIONS: Please see below. PAST MEDICAL HISTORY: Diastolic congestive heart failure Alcoholic liver cirrhosis Ascites Pleural effusion Asthma Hypertension Osteoarthritis CKD 2 Hypoalbuminemia Leukopenia Anemia PAST SURGICAL HISTORY: Bilateral inguinal hernia surgery Right knee arthroscopy Thoracocentesis Paracentesis FAMILY HISTORY: Noncontributory. SOCIAL HISTORY: Patient denies smoking. He states his last alcohol intake was in summer of last year. Patient denies drug use. REVIEW OF SYSTEMS: Otherwise negative. PHYSICAL EXAMINATION: No video on patient side. LABORATORY DATA: 08/28/2020 hemoglobin 10.7 hematocrit 32.4 WBC 3.5 platelets 50 sodium 138 potassium 3.5 BUN 16 creatinine 1.14 GFR greater than 60 total bilirubin 3.5 AST 55 ALT 34 ALP 166. Ammonia 62 on 07/24/2020. INR 1.4 on 08/23/2020. MELD sodium score 16 Echocardiogram 03/12/2020. Findings suggestive of elevated pulmonary artery pressures. Imaging: I personally reviewed patient's prior thora and paracentesis. Thoracocentesis right side 08/05/2020; 2 L of fluid Thoracocentesis right side 07/25/20; 1.1 L fluid Paracentesis 07/24/20 5.5 L Paracentesis 07/16/2020 6.4 L Paracentesis 03/11/20 8.4 L I personally reviewed the CT abdomen pelvis with IV contrast performed June 2020. Shrunken liver, nodular in contour with recanalized periumbilical vein and large-volume ascites in keeping with portal hypertension. Patent portal vein. ASSESSMENT/PLAN: 60-year-old male with alcohol related cirrhosis, hepatic hydrothorax, elevated bilirubin, elevated right heart pressures and heart failure. Patient is not a good candidate for TIPS. As patient already has elevated bilirubin, post TIPS the diversion of blood away from the liver can cause worsening liver failure. The additional volume back to the right heart may cause worsening heart failure. At this time, I would recommend aggressive diuretic management with optimization of spironolactone up to 200 mg per day. He may be a candidate for octreotide for hepatic hydrothorax management, decision best made in discussion with cardiothoracic surgery and pulmonology. I will refer the patient for transplant evaluation. Thank you for this referral. Cc Dr. Venegas Allergies Coded Allergies: POLLEN (Verified Allergy, Unknown, 05/22/20) Home Medications Scheduled Fluticasone Propionate (Flovent Hfa), 1 PUFF INH BID, (Reported) Furosemide (Furosemide), 60 MG PO DAILY, (Reported) Lactulose (Constulose), 30 ML PO DAILY, (Reported) Losartan Potassium (Losartan Potassium), 25 MG PO DAILY, (Reported) Metoprolol Succinate (Metoprolol Succinate), 25 MG PO DAILY, (Reported) Multivitamin (Multivitamins), 1 TAB PO DAILY, (Reported) Omeprazole (Omeprazole), 40 MG PO DAILY, (Reported) Potassium Chloride (Potassium Chloride), 10 MEQ PO DAILY, (Reported) Spironolactone (Spironolactone), 100 MG PO DAILY, (Reported) Tamsulosin Hcl (Tamsulosin HCl), 0.4 MG PO DAILY, (Reported) Scheduled PRN Albuterol Sulfate (Ventolin Hfa), 2 PUFFS INH QID PRN for SOB/WHEEZING, (Reported) Discontinued Medications Furosemide (Furosemide), 60 MG PO DAILY Discontinued Reason: Re-entering as new Montelukast Sodium (Montelukast Sodium), 10 MG PO DAILY, (Reported) Discontinued Reason: Pt states not taking ZION JIMÉNEZ MD 6, 2021 14:57
== END ==
LOC: M TMIRPOV 12:59
PROVIDERS: ATTEND Radiology Diagnostic Radiology
DX: K70.31 Alcoholic cirrhosis of liver with ascites (principal); I50.30 Unspecified diastolic (congestive) heart failure; J90 Pleural effusion, not elsewhere classified; I12.9 Hypertensive chronic kidney disease with stage 1 through stage 4 chronic kidney disease, or unspecified chronic kidney disease; J45.909 Unspecified asthma, uncomplicated; M19.90 Unspecified osteoarthritis, unspecified site; N18.2 Chronic kidney disease, stage 2 (mild); E88.09 Other disorders of plasma-protein metabolism, not elsewhere classified; D72.819 Decreased white blood cell count, unspecified

== ENCOUNTER → 2020-09-19 | Outpatient (REF) | payer MEDICARE ==
[~2020-09-19] MED LIST changes: +DOK1CAP7 PO; +MONT10TA10 PO; -MONT5TAB2 PO; +TORS20TA2 PO
[2020-09-19 18:17] LABS: INR 1.29; PROTHROMBIN TIME 16.4 SECONDS (12.5-14.3)
[2020-09-19 18:18] LABS: PARTIAL THROMBOPLASTIN TIME 37.3 SECONDS (24.2-38.5)
[2020-09-19 18:41] LABS: PLATELET COUNT, AUTOMATED 70 10^3/uL (150-450)
== END ==
LOC: M LAB REF 16:44
PROVIDERS: ATTEND Thoracic Surgery (Cardiothoracic Vascular Surgery)
DX: Z01.812 Encounter for preprocedural laboratory examination (principal); Z79.899 Other long term (current) drug therapy

== ENCOUNTER → 2020-09-19 | Outpatient (CLI) | payer MEDICARE ==
--- NOTE | 2020-09-19 09:51 | REPPI ---
INDICATION: PLEURAL EFFUSION COMPARISON: 09/03/2020 TECHNIQUE: PA and lateral. FINDINGS: New moderate to large right pleural effusion. Visualized aerated lung sr are otherwise clear. Visualized cardiac silhouette is within normal limits. Skeletal structures are intact. IMPRESSION: New moderate to large right pleural effusion. <Electronically signed by Jose Qureshi > 09/19/20 0948
== END ==
LOC: M PLAIMG 09:30
PROVIDERS: ATTEND Thoracic Surgery (Cardiothoracic Vascular Surgery)
DX: Z01.812 Encounter for preprocedural laboratory examination (principal); J90 Pleural effusion, not elsewhere classified; J45.909 Unspecified asthma, uncomplicated; Z79.899 Other long term (current) drug therapy

== ENCOUNTER → 2020-09-26 | Outpatient (CLI) | payer MEDICARE ==
[~2020-09-26] MED LIST changes: +LIDOCAINE 1% MDV 20ML VIAL As Ordered ONE
[2020-09-26 12:36] LABS: INR 1.24; PROTHROMBIN TIME 15.9 SECONDS (12.5-14.3)
[2020-09-26 12:37] LABS: PARTIAL THROMBOPLASTIN TIME 35.8 SECONDS (24.2-38.5)
[2020-09-26 12:59] LABS: TOTAL PROTEIN 6.3 GM/DL (6.4-8.2)
--- NOTE | 2020-09-26 13:35 | REP ---
INDICATION: POST RIGHT THORA, 2 VIEW. COMPARISON: Comparison chest x-ray 19 September 2020.. TECHNIQUE: PA and lateral chest x-ray. FINDINGS: There is very slight residual blunting right lateral pleural angle and some fissural thickening is seen. There is no evidence of pneumothorax. Left lung is clear. Heart is not enlarged. There is substantial improvement in the right pleural effusion since the 19 September 2020 study. IMPRESSION: Status post right thoracentesis. Right pleural effusion much improved. No complication seen. <Electronically signed by Sunny Stoner > 09/26/20 [id number]
[2020-09-26 13:40] VITALS: BP 123/78
[2020-09-26 14:25] LABS: SOURCE, BODY FLUID pH PLEURAL
[2020-09-26 14:28] LABS: PH BODY FLUID > 7.800 UNITS (NOT ESTABLISHED)
[2020-09-26 14:31] LABS: APPEARANCE, BODY FLUID HAZY (CLEAR); PLEURAL FL COLOR YELLOW (COLORLESS); SOURCE, BODY FLUID PLEURAL
[2020-09-26 16:27] LABS: AMYLASE, BODY FLUID 15 U/L (NOT ESTABLISHED); LDH, BODY FLUID 91 U/L (NOT ESTABLISHED); SOURCE, BODY FLUID AMYLASE PLEURAL; SOURCE, BODY FLUID GLUCOSE PLEURAL; SOURCE, BODY FLUID LDH PLEURAL; SOURCE, BODY FLUID TOT PROTEIN PLEURAL; TOTAL PROTEIN, BODY FLUID 1.3 G/DL (NOT ESTABLISHED)
--- NOTE | 2020-09-26 16:56 | REP ---
INDICATION: RT LUNG PLEURAL EFFUSION LABS 1ST. COMPARISON: None. TECHNIQUE: The procedure was performed under the direct supervision of Dr. Stoner. The risks and benefits of the procedure were explained to the patient and informed consent was obtained. The right pleural effusion was localized using ultrasound guidance. The skin was prepped and draped in a sterile fashion. 1% lidocaine was used as a local anesthetic. An 8 Telugu multi side hole catheter was inserted using trocar technique. 1655 cc of yellow fluid was withdrawn and sent to the lab for analysis. The patient tolerated the procedure well and there were no immediate complications. After the appropriate amount to monitor convalescence the patient was discharged from the department. FINDINGS: None IMPRESSION: Ultrasound-guided right thoracentesis yielding 1655 cc of yellow fluid. <Electronically signed by Papito Daniels > 09/26/20 1605 <Electronically signed by Sunny Stoner > 09/26/20 [id number]
== END ==
LOC: M IRPRO 11:49 → M LAB 11:49
PROVIDERS: ATTEND Thoracic Surgery (Cardiothoracic Vascular Surgery)
DX: J90 Pleural effusion, not elsewhere classified (principal)

== ENCOUNTER → 2020-10-07 | Outpatient (CLI) | payer MEDICARE ==
[~2020-10-07] MED LIST changes: -LIDOCAINE 1% MDV 20ML VIAL As Ordered ONE
--- NOTE | 2020-10-07 09:23 | REPPI ---
INDICATION: PLEURAL EFFUSION, ALCOHOLIC CIRRHOSIS OF LIVER WITH ASCITIES COMPARISON: 09/19/2020 TECHNIQUE: PA and lateral. FINDINGS: Small to moderate right pleural effusion with right basilar atelectasis is again noted, but improved as compared with prior examination. Aerated lung sr are otherwise clear. No pneumothorax. Visualized mediastinum and cardiac silhouette stable and within normal limits. IMPRESSION: Small to moderate right pleural effusion decreased from prior examination. <Electronically signed by Jose Qureshi > 10/07/20 [id number]
== END ==
LOC: M PLAIMG 09:01
PROVIDERS: ATTEND Thoracic Surgery (Cardiothoracic Vascular Surgery)
DX: J90 Pleural effusion, not elsewhere classified (principal); K70.31 Alcoholic cirrhosis of liver with ascites

== ENCOUNTER → 2020-11-05 | Outpatient (CLI) | payer MEDICARE ==
--- NOTE | 2020-11-05 09:26 | REPPI ---
INDICATION: K70.31 ALCOHOLIC CIRRHOSIS OF LIVER J90 PLEURAL EFFUSION AST. COMPARISON: Comparison chest radiograph October 07, 2020. TECHNIQUE: Two views.. FINDINGS: There has been an interval increase in the size of the right pleural effusion which now opacifies the lower half of the right hemithorax. The left lung is clear and left pleural angles remain sharp. No infiltrate is seen on either side. Heart is not enlarged. Pulmonary vasculature is not increased. No acute bony abnormality is seen. IMPRESSION: Recurrent moderate right pleural effusion.. <Electronically signed by Sunny Stoner > 11/05/20 0928
== END ==
LOC: M PLAIMG 08:53
PROVIDERS: ATTEND Thoracic Surgery (Cardiothoracic Vascular Surgery)
DX: K70.31 Alcoholic cirrhosis of liver with ascites (principal); J90 Pleural effusion, not elsewhere classified; J45.909 Unspecified asthma, uncomplicated

== ENCOUNTER → 2020-11-14 | Outpatient (CLI) | payer MEDICARE ==
[~2020-11-14] MED LIST changes: +ACET1TAB55 PO; +COLA100C5 PO; +LIDOCAINE 1% MDV 20ML VIAL As Ordered ONE; +PANT40TA29 PO; +PERCOCET PO; +TORS100T PO
--- NOTE | 2020-11-14 10:39 | REP ---
INDICATION: POST RIGHT THORA, 2 VIEW. COMPARISON: 11/05/2020. TECHNIQUE: Two views of the chest are performed following right thoracentesis. FINDINGS: There is no pneumothorax. The right pleural effusion has essentially resolved. No consolidation is seen. The heart and mediastinum are within normal limits. There are degenerative changes of the spine. IMPRESSION: No pneumothorax status post right thoracentesis. The right pleural effusion has essentially resolved. <Electronically signed by Eliezer Chung > 11/14/20 [id number]
[2020-11-14 11:02] LABS: APPEARANCE, BODY FLUID HAZY (CLEAR); PLEURAL FL COLOR YELLOW (COLORLESS); SOURCE, BODY FLUID PLEURAL
[2020-11-14 11:17] LABS: AMYLASE, BODY FLUID 16 U/L (NOT ESTABLISHED); LDH, BODY FLUID 99 U/L (NOT ESTABLISHED); SOURCE, BODY FLUID AMYLASE PLEURAL; SOURCE, BODY FLUID GLUCOSE PLEURAL; SOURCE, BODY FLUID LDH PLEURAL; SOURCE, BODY FLUID TOT PROTEIN PLEURAL; TOTAL PROTEIN, BODY FLUID 1.4 G/DL (NOT ESTABLISHED)
[2020-11-14 12:00] VITALS: BP 95/59
[2020-11-14 12:09] LABS: PH BODY FLUID < 6.500 UNITS (NOT ESTABLISHED); SOURCE, BODY FLUID pH PLEURAL
--- NOTE | 2020-11-14 18:53 | REP ---
INDICATION: RT PLEURAL EFFUSION. COMPARISON: None. TECHNIQUE: The procedure was performed under the direct supervision of Dr. Chung. The risks and benefits of the procedure were explained to the patient and informed consent was obtained. The procedure was performed by Dr. Lanza under my personal guidance. The right pleural effusion was localized using ultrasound guidance. The skin was prepped and draped in a sterile fashion. 1% lidocaine was used as a local anesthetic. An 8 Chinese multi side hole catheter was inserted using trocar technique. 2345 cc of silvia colored fluid was withdrawn with a sample sent to lab for analysis. The patient tolerated the procedure well and there were no immediate complications. After the appropriate amount to monitor convalescence the patient was discharged from the department. FINDINGS: None IMPRESSION: Ultrasound-guided right thoracentesis yielding 2345 cc of islvia colored fluid. <Electronically signed by Papito Daniels > 11/14/20 [id number] <Electronically signed by Eliezer Chung > 11/14/20 [id number]
== END ==
LOC: M IRPRO 09:21
PROVIDERS: ATTEND Thoracic Surgery (Cardiothoracic Vascular Surgery)
DX: J90 Pleural effusion, not elsewhere classified (principal)

== ENCOUNTER 2020-11-30 10:39 | Inpatient (IN) | payer MEDICARE ==
[2020-11-30] VITALS (10 sets, daily range): BP systolic 97–109; BP diastolic 56–71
[~2020-11-30] VITALS: Ht 177.8 cm; Wt 100.5 kg
[~2020-11-30 10:39] MED LIST changes: -ACET1TAB55 PO; -COLA100C5 PO; -LIDOCAINE 1% MDV 20ML VIAL As Ordered ONE; -PANT40TA29 PO; -PERCOCET PO; -TORS100T PO
[2020-11-30] MEDS ORDERED: LOSA25TA14 PO (10:53)
[2020-11-30 11:44] LABS: BASO % 0.8 % (0.0-1.0); EOS # 0.2 10^3/uL (0.0-0.5); EOS % 3.4 % (0.0-3.0); HEMATOCRIT 35.6 % (42.0-52.0); LYMPH # 0.7 10^3/uL (1.5-5.0); LYMPH % 13.5 % (24.0-44.0); MEAN CORPUSCULAR HEMOGLOBIN 34.5 pg (27.0-33.0); MEAN CORPUSCULAR HGB CONC 33.7 g/dl (32.0-36.5); MEAN CORPUSCULAR VOLUME 102.3 fl (80.0-96.0); MONO # 0.7 10^3/uL (0.0-0.8); MONO % 13.7 % (2.0-8.0); NEUTROPHILS # 3.4 10^3/uL (1.5-8.5); NEUTROPHILS % 68.4 % (36.0-66.0); RED BLOOD COUNT 3.48 10^6/uL (4.30-6.10)
--- NOTE | 2020-11-30 11:44 | REP ---
INDICATION: DYSPNEA/COUGH. COMPARISON: 11/14/2020. TECHNIQUE: SINGLE PORTABLE AP VIEW OF THE CHEST WAS PERFORMED. FINDINGS: There is a large right pleural effusion with adjacent right lung compressive atelectasis.Left lung is clear. The remainder of the study appears unchanged. IMPRESSION: Large right pleural effusion. <Electronically signed by Eliezer Chung > 11/30/20 [id number]
[2020-11-30 11:50] LABS: PLATELET COUNT, AUTOMATED 61 10^3/uL (150-450)
[2020-11-30] MEDS ORDERED: TORS100T PO (12:07)
[2020-11-30] MEDS ORDERED: COLA100C5 PO (12:07)
[2020-11-30 12:34] LABS: RSV AMPLIFICATION NEGATIVE (NEGATIVE)
[2020-11-30 12:37] LABS: ALBUMIN 2.3 GM/DL (3.2-5.2); ALT/SGPT 41 U/L (12-78); BILIRUBIN,DIRECT 1.3 MG/DL (0.0-0.2); BILIRUBIN,TOTAL 2.6 MG/DL (0.2-1.0); BLOOD UREA NITROGEN 16 MG/DL (7-18); CALCIUM LEVEL 8.3 MG/DL (8.8-10.2); CARBON DIOXIDE LEVEL 31 MEQ/L (21-32); CHLORIDE LEVEL 99 MEQ/L (98-107); CK-MB VALUE MASS 1.4 NG/ML (<3.6); CPK CREATINE PHOSPHOKINASE 96 U/L (39-308); CREATININE FOR GFR 1.32 MG/DL (0.70-1.30); GLOMERULAR FILTRATION RATE 58.9 (>49); GLUCOSE, FASTING 104 MG/DL (70-100); MB/CK RELATIVE INDEX 1.46 (< OR =4); NT-PRO BNP 145 PG/ML (<125); POTASSIUM SERUM 4.3 MEQ/L (3.5-5.1); SODIUM LEVEL 136 MEQ/L (136-145); TOTAL PROTEIN 6.4 GM/DL (6.4-8.2); TROPONIN I < 0.02 NG/ML (< 0.10)
--- NOTE | 2020-11-30 13:34 | HPEPDOC ---
General Date of Admission 11/30/20 Date of Service: Nov 30, 2020 Chief Complaint The patient is a 60-year-old male admitted with a reason for visit of Short Of Breath. Source: Patient, RN/MD History of Present Illness 60 year old male with decompensated alcoholic cirrhosis with ascites, thrombocytopenia, esophageal varices with h/o right sided hepatic hydrothorax meeting a recurrent thoracocentesis presents to the ED today for 4-5 days of increasing shortness of breath. With this increasing shortness of breath. His exercise capacity has become limited and he can only walk a few feet at present and then becomes extremely short of breath and has to rest. He also noticed some increased swelling of his belly and some swelling in his legs. He reports that he has been compliant with his medications, fluid and salt restriction. Is able to lay down, almost flat, needing only one to 2 pillows. He is able to talk in full sentences without any conversational dyspnea. He denies any cough, any fever, chills, denies any confusion. Denies any abdominal pain, nausea, vomiting or diarrhea. He denies any bleeding from anywhere. Chest x-ray and the CT showed large right-sided pleural effusion. . He was admitted for right pleural effusion. Have consulted Dr. Castro for a possible thoracocentesis. Home Medications Scheduled Fluticasone Propionate (Flovent Hfa) 44 Mcg/Act Aer.w.adap, 1 PUFF INH BID, (Reported) Lactulose (Constulose) 10 Gm/15 Ml Solution, 30 ML PO DAILY, (Reported) Losartan Potassium (Losartan Potassium) 25 Mg Tablet, 1 TAB PO DAILY, (Reported) Multivitamin (Multivitamins) 1 Each Tablet, 1 TAB PO DAILY, (Reported) Omeprazole (Omeprazole) 40 Mg Capsule.dr, 40 MG PO DAILY, (Reported) Potassium Chloride (Potassium Chloride) 10 Meq Tablet.er, 10 MEQ PO DAILY, (Reported) Spironolactone (Spironolactone) 100 Mg Tablet, 100 MG PO DAILY, (Reported) Tamsulosin Hcl (Tamsulosin HCl) 0.4 Mg Capsule, 0.4 MG PO DAILY, (Reported) Torsemide (Torsemide) 100 Mg Tablet, 50 MG PO DAILY, (Reported) Scheduled PRN Albuterol Sulfate (Ventolin Hfa) 18 Gm Hfa.aer.ad, 2 PUFFS INH QID PRN for SOB/WHEEZING, (Reported) Docusate Sodium (Colace) 100 Mg Capsule, 100 MG PO BID PRN for CONSTIPATION, (Reported) Allergies Coded Allergies: POLLEN (Verified Allergy, Unknown, 05/22/20) Past Medical History Medical History Decompensated alcoholic cirrhosis with ascites, thrombocytopenia, Esophageal varices grade 1 in Jun 2020. 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 Diastolic CHF: LVEF65% Grade 1 LV diastolic dysfunction, Internal hemorrhoids Asthma, obesity, hypertension, osteoarthritis CKD stage 2 to 3 Hypoalbuminemia. Anemia. Surgical History Multiple thoracentesis and paracentesis due to decompensated liver cirrhosis, bilateral inguinal hernia surgery, right knee arthroscopy, left fourth finger tendon repair Family History Significant Family History: Asthma (brother and sister), Heart disease (father) Social History * Smoker: former Smoker Alcohol: sober (Last drink spring 2019) Drugs: marijuana A-FIB/CHADSVASC A-FIB History Current/History of A-Fib/PAF?: No Review of Systems Constitutional: Denies: Chills, Fever, Night Sweats Eyes: Denies: Pain, Vision change ENT: Denies: Head Aches, Ear Pain, Dysphagia Skin: Denies: Rash, Lesions, Breakdown Pulmonary: Reports: Dyspnea Cardiovascular: Denies: Chest Pain, Palpitations, Orthopnea, Paroxysmal Noc. Dyspnea, Lt Headedness Gastrointestinal: Denies: Nausea, Vomiting, Abdominal Pain, Diarrhea Genitourinary: Denies: Dysuria, Frequency, Incontinence, Retention Hematologic: Denies: Bruising, Bleeding Excessively Musculoskeletal: Denies: Neck Pain, Back Pain, Joint Pain, Muscle Pain, Spasms Physical Examination General Exam: Positive: Alert, Cooperative, No Acute Distress Eye Exam: Positive: PERRLA, Conjunctiva & lids normal, EOMI; Negative: Sclera icteric ENT Exam: Positive: Atraumatic, Mucous membr. moist/pink, Pharynx Normal Neck Exam: Positive: Supple; Negative: JVD, thyromegaly Chest Exam: Positive: Diminished (on the right till a little above the tip of the shoulder blade), Other (dull to percussion on the right till just above the shoulder blade. Egophony at the left of the tip of scpula. ) Heart Exam: Positive: Rate Normal, Regular Rhythm, Normal S1, Normal S2, Murmurs (systolic 2/6); Negative: Rubs Abdomen Exam: Positive: Normal bowel sounds, Soft, Other (ascites present); Negative: Tenderness Extremity Exam: Positive: Edema (2+); Negative: Clubbing, Cyanosis Skin Exam: Positive: Nl turgor and temperature; Negative: Breakdown, Lesion Vital Signs Vital Signs Date Time Temp Pulse Resp B/P (MAP) Pulse Ox O2 Delivery O2 Flow Rate FiO2 11/30/20 12:30 112/77 (89) 11/30/20 12:24 75 94 Nasal Cannula 2.0 11/30/20 10:40 97.9 18 Laboratory Data Labs 24H Laboratory Tests 2 11/30/20 11:11: Immature Granulocyte % (Auto) 0.2, Neutrophils (%) (Auto) 68.4H, Lymphocytes (%) (Auto) 13.5L, Monocytes (%) (Auto) 13.7H, Eosinophils (%) (Auto) 3.4H, Basophils (%) (Auto) 0.8, Neutrophils # (Auto) 3.4, Lymphocytes # (Auto) 0.7L, Monocytes # (Auto) 0.7, Eosinophils # (Auto) 0.2, Basophils # (Auto) 0.0, Nucleated Red Blood Cells % (auto) 0.0, Immature Platelet Fraction 3.6, Anion Gap 6L, Glomerular Filtration Rate 58.9, Calcium Level 8.3L, Total Bilirubin 2.6H, Direct Bilirubin 1.3H, Aspartate Amino Transf (AST/SGOT) 79H, Alanine Aminotr ansferase (ALT/SGPT) 41, Alkaline Phosphatase 243H, Total Creatine Kinase 96, Creatine Kinase MB 1.4, Creatine Kinase MB Relative Index 1.46, Troponin I < 0.02, FZ-Lis-W-Type Natriuretic Peptide 145H, Total Protein 6.4, Albumin 2.3L, Albumin/Globulin Ratio 0.6 11/30/20 11:50: Coronavirus (COVID-19)(PCR) NEGATIVE, Influenza Type A (RT-PCR) NEGATIVE, Influenza Type B (RT-PCR) NEGATIVE, Respiratory Syncytial Virus (PCR) NEGATIVE CBC/BMP Laboratory Tests 11/30/20 11:11 Assessment/Plan 60 year old male with decompensated alcoholic cirrhosis with ascites, thrombocytopenia, esophageal varices with h/o right sided hepatic hydrothorax meeting a recurrent thoracocentesis presents to the ED today for 4-5 days of increasing shortness of breath. With this increasing shortness of breath. His exercise capacity has become limited and he can only walk a few feet at present and then becomes extremely short of breath and has to rest. He also noticed some increased swelling of his belly and some swelling in his legs. He reports that he has been compliant with his medications, fluid and salt restriction. Is able to lay down, almost flat, needing only one to 2 pillows. He is able to talk in full sentences without any conversational dyspnea. He denies any cough, any fever, chills, denies any confusion. Denies any abdominal pain, nausea, vomiting or diarrhea. He denies any bleeding from anywhere. Chest x-ray and the CT showed large right-sided pleural effusion. . He was admitted for right pleural effusion. Have consulted Dr. Castro for a possible thoracocentesis. Record into the right hepatitic hydrothorax Due to decompensated cirrhosis Will need thoracocentesis Consulted Dr. Castro Decompensated cirrhosis of liver due to alcohol abuse With ascites, thrombocytopenia and esophageal varices No history of variceal bleeding or hepatitic encephalopathy or SBP Will start the patient on Lasix and albumin Continue spironolactone and lactulose Hypertension Will hold losartan as I would like to have good blood pressure. 2. He'll be diu resed CTD stage 2-3 Creatinine stable monitor BPH continue Flomax GERD. PPI DVT prophylaxis with teds and SCDs Plan / VTE VTE Prophylaxis Ordered?: Yes RUBINA MARTIN MD Nov 30, 2020 13:34
[2020-11-30 14:10] LABS: ETHYL ALCOHOL (ETHANOL) < 0.003 % (0.000-0.010)
[2020-11-30] MEDS ORDERED: ALBUTEROL 90 MCG/ACT 8GM HFA INHALER INH PRN (14:10)
[2020-11-30 14:12] LABS: INR 1.3; PROTHROMBIN TIME 16.4 SECONDS (12.5-14.3)
[2020-11-30 14:13] LABS: PARTIAL THROMBOPLASTIN TIME 36.4 SECONDS (24.2-38.5)
[2020-11-30] MEDS ORDERED: LIDOCAINE 1% MDV 20ML VIAL As Ordered ONE (14:51)
[2020-11-30] MEDS ORDERED: MIDAZOLAM INJ 2MG/2ML VIAL (J2250 PER 1MG) As Ordered ONE (14:51)
[2020-11-30] MEDS ORDERED: flumazeniL 0.5 MG/5 ML VIAL As Ordered ONE (14:52)
[2020-11-30] MEDS: FUROSEMIDE 40MG/4ML VIAL (J1940) IV SCH ×2 (15:44→21:00)
[2020-11-30] MEDS ORDERED: NORCO, ANEXSIA 5/325MG TABLET (HYDROcodone/ACETAMINOPHEN) PO PRN (16:30)
[2020-11-30] MEDS ORDERED: BISACODYL 10 MG SUPP PR PRN (16:30)
[2020-11-30] MEDS ORDERED: ONDANSETRON 4MG/2ML VIAL IV PRN (16:30)
[2020-11-30] MEDS ORDERED: PERCOCET 5MG/325MG TAB PO PRN (16:30)
[2020-11-30] MEDS ORDERED: LEVALBUTEROL 1.25 MG/0.5 ML CONCENTRATE NEB NEB PRN (16:30)
[2020-11-30] MEDS ORDERED: ACETAMINOPHEN TAB 650MG DOSE (2X325MG) PO PRN (16:30)
[2020-11-30 17:03] LABS: LDH LACTATE DEHYDROGENASE 321 U/L (87-241)
[2020-11-30 17:40] LABS: APPEARANCE, BODY FLUID CLEAR (CLEAR); PH BODY FLUID > 7.800 UNITS (NOT ESTABLISHED); PLEURAL FL COLOR YELLOW (COLORLESS); SOURCE, BODY FLUID PLEURAL; SOURCE, BODY FLUID pH PLEURAL
[2020-11-30 17:57] LABS: AMYLASE, BODY FLUID 14 U/L (NOT ESTABLISHED); CHOLESTEROL, BODY FLUID < 50 MG/DL (NOT ESTABLISHED); LDH, BODY FLUID 75 U/L (NOT ESTABLISHED); SOURCE, BODY FLUID AMYLASE PLEURAL; SOURCE, BODY FLUID CHOL PLEURAL; SOURCE, BODY FLUID GLUCOSE PLEURAL; SOURCE, BODY FLUID LDH PLEURAL; SOURCE, BODY FLUID TRIG PLEURAL; TRIGLYCERIDE, BODY FLUID 22 MG/DL (NOT ESTABLISHED)
[2020-11-30 18:06] LABS: SOURCE, BODY FLUID ALBUMIN PLEURAL; SOURCE, BODY FLUID TOT PROTEIN PLEURAL
--- NOTE | 2020-11-30 18:24 | REP ---
INDICATION: s/p Chest Tube insertion COMPARISON: 11/30/2020, 11:25 a.m. TECHNIQUE: PA/Lateral FINDINGS: Pigtail drainage catheter is seen posteriorly and inferiorly in the right hemithorax. The right pleural effusion has resolved. There is patchy atelectasis or infiltrate in the right lower lung zone. There is a tiny right apical pneumothorax. The air gap is 6 mm. The left lung remains clear. The heart is normal in size. The mediastinal silhouette is unremarkable. There are degenerative changes of the spine. IMPRESSION: Insertion of right pigtail drainage catheter, resolution of right pleural effusion. Tiny right apical pneumothorax. Patchy atelectasis or infiltrate right lower lung zone. <Electronically signed by Eliezer Chung > 11/30/20 [id number]
[2020-11-30] MEDS: LEVALBUTEROL 1.25 MG/0.5 ML CONCENTRATE NEB NEB SCH (20:00)
[2020-11-30] MEDS: FLUTICASONE HFA 44 MCG 10.6GM INHALER (FLOVENT) INH SCH (20:01)
[2020-11-30] MEDS: HEPARIN SOD (PORCINE) 5000UNITS/ML 1ML VIAL/SYRINGE SC SCH (20:37)
[2020-11-30] MEDS: DOCUSATE SODIUM 100MG CAPSULE PO SCH (20:37)
[2020-11-30] MEDS: PERCOCET 5MG/325MG TAB PO PRN (20:37)
[2020-12-01] VITALS (17 sets, daily range): BP systolic 89–105; BP diastolic 49–64
[2020-12-01] MEDS: LEVALBUTEROL 1.25 MG/0.5 ML CONCENTRATE NEB NEB SCH ×4 (01:27→20:42)
[2020-12-01] MEDS: FUROSEMIDE 40MG/4ML VIAL (J1940) IV SCH ×4 (03:00→21:00)
[2020-12-01] MEDS: PERCOCET 5MG/325MG TAB PO PRN ×3 (04:39→14:12)
[2020-12-01 05:35] LABS: BASO % 0.3 % (0.0-1.0); EOS # 0.3 10^3/uL (0.0-0.5); EOS % 3.6 % (0.0-3.0); HEMATOCRIT 32.1 % (42.0-52.0); HEMOGLOBIN 10.9 g/dl (13.5-17.5); LYMPH # 0.6 10^3/uL (1.5-5.0); LYMPH % 8.6 % (24.0-44.0); MEAN CORPUSCULAR HEMOGLOBIN 34.7 pg (27.0-33.0); MEAN CORPUSCULAR VOLUME 102.2 fl (80.0-96.0); MONO # 0.6 10^3/uL (0.0-0.8); MONO % 8.4 % (2.0-8.0); NEUTROPHILS # 5.7 10^3/uL (1.5-8.5); NEUTROPHILS % 78.8 % (36.0-66.0); RED BLOOD COUNT 3.14 10^6/uL (4.30-6.10); WHITE BLOOD COUNT 7.2 10^3/uL (4.0-10.0)
[2020-12-01 05:38] LABS: PLATELET COUNT, AUTOMATED 44 10^3/uL (150-450)
[2020-12-01 05:56] LABS: CALCIUM LEVEL 8.6 MG/DL (8.8-10.2); CREATININE FOR GFR 1.41 MG/DL (0.70-1.30); GLOMERULAR FILTRATION RATE 54.6 (>49); POTASSIUM SERUM 3.9 MEQ/L (3.5-5.1)
[2020-12-01] MEDS: FLUTICASONE HFA 44 MCG 10.6GM INHALER (FLOVENT) INH SCH ×2 (08:01→20:42)
[2020-12-01] MEDS: HEPARIN SOD (PORCINE) 5000UNITS/ML 1ML VIAL/SYRINGE SC SCH (08:04)
[2020-12-01] MEDS: LACTULOSE 20 GM/30 ML SYRUP UD PO SCH (08:51)
[2020-12-01] MEDS: MOM 30ML SUSPENSION UDC PO SCH (08:51)
[2020-12-01] MEDS: SPIRONOLACTONE 50 MG TAB PO SCH (08:51)
[2020-12-01] MEDS: TAMSULOSIN 0.4 MG CAP PO SCH (08:52)
[2020-12-01] MEDS: POTASSIUM CHLORIDE 10 MEQ SR TABLET PO SCH (08:52)
[2020-12-01] MEDS: PANTOPRAZOLE 40MG TAB (PROTONIX) PO SCH (08:52)
[2020-12-01] MEDS: DOCUSATE SODIUM 100MG CAPSULE PO SCH ×2 (08:53→21:03)
--- NOTE | 2020-12-01 11:00 | IPNPDOC ---
Subjective Date Seen The patient was seen on 12/01/20. Subjective Chief Complaint/HPI SOB is better, no complaints. Chest tube drainage was 5550 ml after it was placed. Objective Physical Examination General Exam: Positive: Alert, Cooperative, No Acute Distress Eye Exam: Positive: PERRLA, Conjunctiva & lids normal, EOMI; Negative: Sclera icteric ENT Exam: Positive: Atraumatic, Mucous membr. moist/pink, Pharynx Normal Neck Exam: Positive: Supple; Negative: JVD, thyromegaly Chest Exam: Positive: Diminished (on the right till a little above the tip of the shoulder blade), Other (dull to percussion on the right till just above the shoulder blade. Egophony at the left of the tip of scpula. ) Heart Exam: Positive: Rate Normal, Regular Rhythm, Normal S1, Normal S2, Mu rmurs (systolic 2/6); Negative: Rubs Abdomen Exam: Positive: Normal bowel sounds, Soft, Other (ascites present); Negative: Tenderness Extremity Exam: Positive: Edema (2+); Negative: Clubbing, Cyanosis Skin Exam: Positive: Nl turgor and temperature; Negative: Breakdown, Lesion Assessment /Plan Assessment 60 year old male with decompensated alcoholic cirrhosis with ascites, thrombocytopenia, esophageal varices with h/o right sided hepatic hydrothorax meeting a recurrent thoracocentesis presents to the ED today for 4-5 days of increasing shortness of breath. With this increasing shortness of breath. His exercise capacity has become limited and he can only walk a few feet at present and then becomes extremely short of breath and has to rest. He also noticed some increased swelling of his belly and some swelling in his legs. He reports that he has been compliant with his medications, fluid and salt restriction. Is able to lay down, almost flat, needing only one to 2 pillows. He is able to talk in full sentences without any conversational dyspnea. He denies any cough, any fever, chills, denies any confusion. Denies any abdominal pain, nausea, vomiting or diarrhea. He denies any bleeding from anywhere. Chest x-ray and the CT showed large right-sided pleural effusion. . He was admitted for right pleural effusion. Recurrent right hepatitic hydrothorax Due to decompensated cirrhosis s/p right pig tail catheter on 11/30 had 5550 ml out. Will continue albumin q6 hours. pain meds ordered, levalbuterol Decompensated cirrhosis of liver due to alcohol abuse With ascites, thrombocytopenia and esophageal varices No history of variceal bleeding or hepatitic encephalopathy or SBP patient on Lasix and albumin. However BPs have been low so he has not been able to get any lasix. Continue spironolactone and lactulose Hypertension Now hypotensive with large amount of pleural fluid drainage. Will hold losartan as I would like to have good blood pressure to diurese him CTD stage 2-3 Creatinine stable monitor BPH continue Flomax GERD. PPI DVT prophylaxis with teds and SCDs as patient is thrombocytopenic. Plan/VTE VTE Prophylaxis Ordered?: Yes VS, I&O, 24H, Fishbone Vital Signs/I&O Vital Signs Date Time Temp Pulse Resp B/P (MAP) Pulse Ox O2 Delivery O2 Flow Rate FiO2 12/01/20 09:22 18 Nasal Cannula 3.0 12/01/20 07:22 97.6 76 94/53 91 I&O- Last 24 Hours up to 6 AM 12/01/20 06:00 Intake Total 700.0 ml Output Total 6400 ml Balance -5700.0 ml Laboratory Data 24H LABS Laboratory Tests 2 11/30/20 11:11: Immature Granulocyte % (Auto) 0.2, Neutrophils (%) (Auto) 68.4H, Lymphocytes (%) (Auto) 13.5L, Monocytes (%) (Auto) 13.7H, Eosinophils (%) (Auto) 3.4H, Basophils (%) (Auto) 0.8, Neutrophils # (Auto) 3.4, Lymphocytes # (Auto) 0.7L, Monocytes # (Auto) 0.7, Eosinophils # (Auto) 0.2, Basophils # (Auto) 0.0, Nucleated Red Blood Cells % (auto) 0.0, Immature Platelet Fraction 3.6, Anion Gap 6L, Glomerular Filtration Rate 58.9, Calcium Level 8.3L, Total Bilirubin 2.6H, Direct Bilirubin 1.3H, Aspartate Amino Transf (AST/SGOT) 79H, Alanine Aminotransferase (ALT/SGPT) 41, Alkaline Phosphatase 243H, Lactate Dehydrogenase 321H, Total Creatine Kinase 96, Creatine Kinase MB 1.4, Creatine Kinase MB Relative Index 1.46, Troponin I < 0.02, EV-Kcb-D-Type Natriuretic Peptide 145H, Total Protein 6.4, Albumin 2.3L, Albumin/Globulin Ratio 0.6, Ethyl Alcohol Level < 0.003 11/30/20 11:15: Prothrombin Time 16.4H, Prothromb Time International Ratio 1.30, Activated Partial Thromboplast Time 36.4 11/30/20 11:50: Coronavirus (COVID-19)(PCR) NEGATIVE, Influenza Type A (RT-PCR) NEGATIVE, Influenza Type B (RT-PCR) NEGATIVE, Respiratory Syncytial Virus (PCR) NEGATIVE 11/30/20 15:50: Body Fluid pH > 7.800, Body Fluid pH Source PLEURAL, Body Fluid WBC (Auto) 94H, Body Fluid RBC (Auto) < 2, Body Fluid Mononuclear Cells % Auto 78.7H, Fluid Polymorphonuclear Cell % Auto 21.3H, Body Fluid Glucose Source PLEURAL, Body Fluid Glucose 121, Body Fluid Protein Source PLEURAL, Body Fluid Total Protein 1.0, Body Fluid Albumin Source PLEURAL, Body Fluid Albumin 0.5, Body Fluid LDH Source PLEURAL, Body Fluid Lactate Dehydrogenase 75, Body Fluid Amylase Source PLEURAL, Body Fluid Amylase 14, Body Fluid Cholesterol < 50, Body Fluid Cholesterol Source PLEURAL, Body Fluid Triglyceride Source PLEURAL, Body Fluid Triglycerides 22, Pleural Fluid Source PLEURAL, Pleural Fluid Color YELLOW, Pleural Fluid Appearance CLEAR 12/01/20 04:58: Immature Granulocyte % (Auto) 0.3, Neutrophils (%) (Auto) 78.8H, Lymphocytes (%) (Auto) 8.6L, Monocytes (%) (Auto) 8.4H, Eosinophils (%) (Auto) 3.6H, Basophils (%) (Auto) 0.3, Neutrophils # (Auto) 5.7, Lymphocytes # (Auto) 0.6L, Monocytes # (Auto) 0.6, Eosinophils # (Auto) 0.3, Basophils # (Auto) 0.0, Nucleated Red Blood Cells % (auto) 0.0, Anion Gap 5L, Glomerular Filtration Rate 54.6, Calcium Level 8.6L CBC/BMP Laboratory Tests 11/30/20 11:11 12/01/20 04:58 Microbiology Microbiology 11/30/20 Acid Fast Stain, Received Pending 11/30/20 Mycobacterial Culture, Received Pending 11/30/20 Fungal Smear, Received Pending 11/30/20 Fungal Culture, Received Pending 11/30/20 Gram Stain - Final, Resulted 11/30/20 Anaerobic Culture, Resulted Pending 11/30/20 Body Fluid Culture, Received Pending RUBINA MARTIN MD Dec 01, 2020 11:00
--- NOTE | 2020-12-01 12:24 | REP ---
INDICATION: pleural effusion COMPARISON: 11/30/2020. TECHNIQUE: PA/Lateral FINDINGS: There is a small right pneumothorax following insertion of a pigtail drainage catheter 11/30/2020. The drainage catheter is again seen posteriorly and inferiorly in the right pleural space. The air gap at the apex is 2.4 cm. There is a small pneumothorax in the right costophrenic angle demonstrates an air gap of 1.7 cm. Mild patchy parenchymal opacities are again seen in the right lung base. There is blunting of the left costophrenic angle probably representing a small effusion. No infiltrate is seen in the left lung. The heart is normal in size and the mediastinal silhouette is unremarkable. There are mild degenerative changes of the spine. IMPRESSION: Pigtail drainage catheter again seen inferiorly and posteriorly on the right. Small right pneumothorax. Mild patchy parenchymal opacities right lung base. <Electronically signed by Eliezer Chung > 12/01/20 [id number]
--- NOTE | 2020-12-01 15:37 | ECGEPIP ---
[facility] - ED Test Date: 2020-11-30 Pat Name: JORGE VALERIO Department: Room: - Gender: Male E Commerce Manager: JOSE ARMANDO : 1960 Requested By: Kathy Elliott Order Number: [id number] Reading MD: Osmani Lima Measurements Intervals [place] Rate: 80 P: 49 HI: 168 QRS: -3 QRSD: 86 T: 7 QT: 382 QTc: 440 Interpretive Statements Sinus rhythm with premature atrial complexes with aberrant conduction Septal infarct , age undetermined Delayed anterior R wave progression Nonspecific ST-T wave abnormalities Similar to tracing done 08-23-20 Electronically Signed on 12-01-2020 15:37:27 EDT by Osmani Lima
[2020-12-02] VITALS (15 sets, daily range): BP systolic 93–116; BP diastolic 53–68
[2020-12-02] MEDS: PERCOCET 5MG/325MG TAB PO PRN ×3 (00:23→20:13)
[2020-12-02] MEDS: LEVALBUTEROL 1.25 MG/0.5 ML CONCENTRATE NEB NEB SCH ×4 (01:12→19:44)
[2020-12-02] MEDS: FUROSEMIDE 40MG/4ML VIAL (J1940) IV SCH ×4 (03:54→20:13)
[2020-12-02 05:24] LABS: BASO % 0.7 % (0.0-1.0); EOS # 0.5 10^3/uL (0.0-0.5); EOS % 11.2 % (0.0-3.0); HEMATOCRIT 32.1 % (42.0-52.0); HEMOGLOBIN 10.7 g/dl (13.5-17.5); LYMPH # 0.7 10^3/uL (1.5-5.0); LYMPH % 15.7 % (24.0-44.0); MEAN CORPUSCULAR HEMOGLOBIN 34.5 pg (27.0-33.0); MEAN CORPUSCULAR HGB CONC 33.3 g/dl (32.0-36.5); MEAN CORPUSCULAR VOLUME 103.5 fl (80.0-96.0); MONO # 0.5 10^3/uL (0.0-0.8); MONO % 12.2 % (2.0-8.0); NEUTROPHILS # 2.6 10^3/uL (1.5-8.5); NEUTROPHILS % 59.7 % (36.0-66.0); WHITE BLOOD COUNT 4.3 10^3/uL (4.0-10.0)
[2020-12-02 05:26] LABS: PLATELET COUNT, AUTOMATED 48 10^3/uL (150-450)
[2020-12-02 05:47] LABS: BLOOD UREA NITROGEN 20 MG/DL (7-18); CALCIUM LEVEL 8.3 MG/DL (8.8-10.2); CARBON DIOXIDE LEVEL 32 MEQ/L (21-32); CHLORIDE LEVEL 96 MEQ/L (98-107); CREATININE FOR GFR 1.19 MG/DL (0.70-1.30); GLOMERULAR FILTRATION RATE > 60.0 (>49); GLUCOSE, FASTING 114 MG/DL (70-100); POTASSIUM SERUM 3.9 MEQ/L (3.5-5.1); SODIUM LEVEL 133 MEQ/L (136-145)
[2020-12-02] MEDS: FLUTICASONE HFA 44 MCG 10.6GM INHALER (FLOVENT) INH SCH ×2 (07:29→19:44)
[2020-12-02] MEDS: PANTOPRAZOLE 40MG TAB (PROTONIX) PO SCH (08:43)
[2020-12-02] MEDS: LACTULOSE 20 GM/30 ML SYRUP UD PO SCH (08:43)
[2020-12-02] MEDS: POTASSIUM CHLORIDE 10 MEQ SR TABLET PO SCH (08:43)
[2020-12-02] MEDS: SPIRONOLACTONE 50 MG TAB PO SCH (08:43)
[2020-12-02] MEDS: TAMSULOSIN 0.4 MG CAP PO SCH (08:44)
[2020-12-02] MEDS: MOM 30ML SUSPENSION UDC PO SCH (08:44)
[2020-12-02] MEDS: DOCUSATE SODIUM 100MG CAPSULE PO SCH ×2 (08:44→20:11)
--- NOTE | 2020-12-02 08:44 | CR ---
CONSULTATION DATE: 11/30/2020 REASON FOR CONSULTATION: The patient is seen at the request of the hospitalist service, Dr. Pickett, for increasing shortness of breath and a pleural effusion. HISTORY OF PRESENT ILLNESS: The patient is a 60-year-old white male who has known cirrhotic disease and who had multiple paracentesis and thoracentesis. He was at one time considered for a TIPS, which interventional radiology declined. He has also been seen at [facility] for consideration of a liver transplant. He has not been drinking for over nine to ten months. Over the past few days, he has become again short of breath. This has been accompanied by cough with clear sputum production, but no fever, chills, or sweats. There has been no dysphagia or chest pain. He was in the hospital in August for an extended course with a chest catheter in and finally, his cirrhosis was brought under control. Since then, he has had reaccumulation of the effusions and has undergone yet another thoracentesis. PAST MEDICAL HISTORY: 1. Asthma. 2. Alcoholic liver cirrhosis with recurrent ascites and pleural effusions. 3. Thrombocytopenia secondary to liver cirrhosis. 4. Obesity. 5. Hypertension. 6. Osteoarthritis. 7. Diastolic dysfunction. PAST SURGICAL HISTORY: 1. Bilateral inguinal hernia. 2. Right knee arthroplasty. 3. Fourth finger tendon repair. 4. Multiple thoracentesis and paracentesis. ALLERGIES: None. HOME MEDICATIONS: 1. Ventolin two puffs q.i.d. p.r.n. shortness of breath. 2. Colace 100 mg p.o. b.i.d. p.r.n. constipation. 3. Flovent one puff b.i.d. 4. Lactulose 30 mL q. day. 5. Losartan 25 mg q. day. 6. Multivitamins one q. day. 7. Omeprazole 40 mg q. day. 8. Potassium chloride 10 mEq q. day. 9. Spironolactone 100 mg q. day. 10. Tamsulosin 0.4 mg q. day. 11. Torsemide 50 mg q. day. HABITS: He used to smoke cigars. Says he stopped drinking last spring, but prior to that drank a bottle a week of hard liquor. He uses occasional marijuana. TRAVEL HISTORY: He has been to the [facility] and to [facility], but not to the [facility]. EXPOSURES: No exposure to tuberculosis. He has four dogs and a cat at home; two pugs and two other mixed dogs. FAMILY HISTORY: Father with heart disease. Mother with unknown medical problems. REVIEW OF SYSTEMS: Constitutional: See HPI. Without fever, chills, sweats, or night sweats. Eyes: Had a retinal detachment as a teenager in his left eye and he is legally blind in the left eye. Has been jaundiced in the past. Without amaurosis fugax in the right eye. Nose has occasional epistaxis with oxygen. Respiratory: See HPI. Cardiac: See HPI. Without prior myocardial infarctions or intermittent claudications. He has not noted peripheral edema lately. GI: Without nausea, vomiting, diarrhea, constipation, melena, hematochezia, or hematemesis. No abdominal pain. : Without dysuria, hematuria, or prior renal stones. Endocrine: Without diabetes or thyroid disease. Psychiatric: Without pathological anxieties, psychosis, or depressions. Neurologic: Without paresthesias, paralysis, prior seizures, or strokes. PHYSICAL EXAMINATION: GENERAL: Well-developed moderately obese white male in moderate distress from shortness of breath. VITAL SIGNS: Temperature 97.1, respirations 18 without the use of accessory muscles and who is 95% saturated on 4 liters nasal cannula and whose blood pressure is 123/63. EYES: Pupils equal, round, and reactive to light. Extraocular muscles intact. Sclerae are slightly icteric. NOSE: Without deformity. MOUTH: Shows the mucous membranes to be pink and moist. Lips and commisures without lesions. There is no thrush. HEAD: Normocephalic. NECK: Supple. There is no jugular venous distention. No subcutaneous emphysema. Trachea is midline. There is no lymphadenopathy or thyromegaly. He has 2+ carotid upstrokes and no bruits. LUNGS: Show markedly decreased breath sounds with E:A egophony in the right side with a dull percussion note half-way up the chest. Left lung shows normal vesicular sounds. Percussion note full to the diaphragm on the left. CARDIAC: Without murmurs, clicks, gallops, or rubs. I cannot feel his PMI. S1, S2 are normal. ABDOMEN: Soft and nontender. Bowel sounds are positive. There is no hepatosplenomegaly. No CVA tenderness. I cannot detect a fluid wave. EXTREMITIES: Show no pretibial edema and no calf tenderness. No differential swelling of the upper extremities. SKIN: Warm, dry, and perfuse without cyanosis or mottling including that of the nail beds and knees. NEUROLOGIC: Shows 2 through 12 intact. Normal gross motor and gross sensation intact. Gait is also intact. PSYCHIATRIC: Shows him to be awake, alert, and oriented x3 with appropriate mood and affect and conversational. LABORATORY DATA: His white count today is 5.0 with hemoglobin and hematocrit of 12.0 and 35.6. Platelet count is 61,000 and differential shows 68% neutrophils, 13% lymphocytes, and 13% monocytes. There are no immature forms and no toxic granulations. His electrolytes are normal with a BUN and creatinine of 16 and 1.32, glucose of 4, and a calcium of 8.3. Albumin is 2.3. AST and ALT are 79 and 41 respectively. Total bilirubin is 2.6 with a direct bilirubin of 1.3. IMAGING DATA: His chest x-ray shows a dense opacity in the right lower hemithorax consistent with fluid. IMPRESSION: 1. End-stage liver disease with cirrhosis and ascites. 2. Right side pleural effusions secondary to cirrhosis, recurrent. 3. Thrombocytopenia secondary to cirrhosis. 4. Asthma. 5. Diastolic dysfunction. 6. Obesity. 7. Hypertension. 8. Osteoarthritis. 9. Hypoalbuminemia. PLAN AND DISCUSSION: I will place a pigtail catheter. I have been resistant to placing a PleurX catheter as I do not want to nutritionally deplete him. I am concerned about lung entrapment and we will need to completely evacuate the chest once again. I suspect that the pigtail catheter will be a short course. We will follow his chest x-rays q. day. I have recommended increasing his diuresis, as well as giving him albumin.
--- NOTE | 2020-12-02 08:51 | RO ---
OPERATIVE NOTE DATE OF OPERATION: 11/30/2020 PREOPERATIVE DIAGNOSIS: Right pleural effusion probably acidic in nature from liver cirrhosis. POSTOPERATIVE DIAGNOSIS: Right pleural effusion probably acidic in nature from liver cirrhosis. PROCEDURE: Insertion of a pigtail chest tube catheter. SURGEON: Kelvin Castro M.D. NUCLEAR CONTROL ROOM OPERATOR: None. ANESTHESIA: FINDINGS: The catheter initially drained 600 mL, but as it was draining slowly it was connected to the Pleur-Evac. We will ascertain the final volume in about a half-hour to an hour. It was sent for all of the requisite studies including bacteriologies, chemistries, cytologies, and hematologies. DESCRIPTION OF PROCEDURE: The patient's back was prepped and draped in the usual sterile fashion and the approximate 9th intercostal space was infiltrated with Lidocaine from the skin to the pleura. A small incision was made and a pigtail catheter was placed. Clear fluid was obtained and the pigtail catheter was then deployed. The above findings were noted. The catheter was secured to the chest wall with 2-0 silk suture. The patient tolerated the procedure well. A chest x-ray is pending.
--- NOTE | 2020-12-02 09:14 | IPN ---
PROGRESS NOTE DATE: 12/01/2020 SUBJECTIVE: Mr. Okeefe drained over 5 liters yesterday from his chest tube. He is breathing a whole lot better today. His cirrhosis is being treated with diuresis and with albumin. OBJECTIVE: VITAL SIGNS: Show a T-max of 98.7 with a heart rate that ranges between 75 and 97 in sinus rhythm. Respiratory rate of 18 to 20 without the use of accessory muscles who is 91% to 98% saturated on 3 liters nasal cannula and whose blood pressure is ranging between 94/53 to 105/57. INTAKE AND OUTPUT: Over the past 24 hours has been recorded as 350 in and 6100 mL out. He has put out 550 mL in urine and 5550 from the chest tube. The last eight hour output is not recorded yet on the chest tube. His weight today is 96.7 kg compared to 106.82 kg yesterday. RESPIRATORY: He has equal breath sounds on either side with some fine crackles during late inspiration on the right side. Percussion notes are full to the diaphragm. CARDIAC: Without murmurs, clicks, gallops, or rubs. I cannot feel his PMI. S1 and S2 are normal. ABDOMEN: Soft and nontender. Bowel sounds are positive. There is no hepatomegaly. No CVA tenderness. EXTREMITIES: Show no pretibial edema. No calf tenderness. No differential swelling of the upper extremities. SKIN: Warm, dry, and perfused without cyanosis or mottling, including that of the nail beds and knees. NECK: Supple. There is no jugular venous distention. No subcutaneous emphysema. Trachea is midline. MOUTH: Shows the mucous membranes to be pink and moist. Lips and commisures are without lesions and no thrush. EYES: Show his pupils equal and reactive. Extraocular muscles are intact. Sclerae nonicteric. NEUROLOGIC: Shows II through XII intact. Normal gross motor, gross sensation intact. Gait is not tested. PSYCHIATRIC: Shows him to be awake, alert, and oriented x3 with appropriate mood and affect and conversational. LABORATORY DATA: His white count today is 7.2 with a hemoglobin and hematocrit of 10.6 and 32.1 respectively with a platelet count of 44,000. Differential shows 78% neutrophils, 8% lymphocytes, and 8% monocytes. There are no immature forms and no toxic granulations. His electrolytes show a marginally low sodium of 133 with a potassium of 3.9. BUN and creatinine are 23 and 1.41 up from 16 and 1.32 yesterday. Glucose is 86 with a calcium of 85. His pleural fluid has been returned with a pH of greater than 7.8 with glucose of 121 and an LDH of 75 with a corresponding serum LDH of 321. He has 94 white cells, 78% are mononuclears, and 21 are neutrophils. This therefore looks like a chronic transudative effusion no doubt secondary to his cirrhosis. IMAGING DATA: His chest x-ray shows his lungs now fully expand to the chest wall. Almost all of the fluid is gone. He has what looks to be an atelectasis in the right lower lobe, but it is minimal. IMPRESSION: 1. End-stage liver cirrhosis. 2. Ascitic pleural effusion. 3. Renal insufficiency. 4. Obesity. 5. Asthma. 6. Diastolic dysfunction. 7. Thrombocytopenia secondary to cirrhosis. 8. Hypertension. 9. Osteoarthritis. 10. Hypoalbuminemia. PLAN AND DISCUSSION: I will take his chest tube off suction today. His cirrhosis will need to be brought again under control. He is receiving albumin infusions.
--- NOTE | 2020-12-02 11:27 | IPNPDOC ---
Subjective Date Seen The patient was seen on 12/02/20. Subjective Chief Complaint/HPI Only 50 cc output from the chest drain overnight. CXR looks good. Bp remains soft in 90s to 100s . No dizziness or light headedness. will continue with diuresis and albumin. SOB improved. Objective Physical Examination General Exam: Positive: Alert, Cooperative, No Acute Distress Eye Exam: Positive: PERRLA, Conjunctiva & lids normal, EOMI; Negative: Sclera icteric ENT Exam: Positive: Atraumatic, Mucous membr. moist/pink, Pharynx Normal Neck Exam: Positive: Supple; Negative: JVD, thyromegaly Chest Exam: Positive: Clear to auscultation, Rales (ramone crackles at the right base. ) Heart Exam: Positive: Rate Normal, Regular Rhythm, Normal S1, Normal S2, Murmurs (systolic 2/6); Negative: Rubs Abdomen Exam: Positive: Normal bowel sounds, Soft, Other (ascites present); Negative: Tenderness Extremity Exam: Positive: Edema (2+); Negative: Clubbing, Cyanosis Skin Exam: Positive: Nl turgor and temperature; Negative: Breakdown, Lesion Assessment /Plan Assessment 60 year old male with decompensated alcoholic cirrhosis with ascites, thrombocytopenia, esophageal varices with h/o right sided hepatic hydrothorax meeting a recurrent thoracocentesis presents to the ED today for 4-5 days of increasing shortness of breath. With this increasing shortness of breath. His exercise capacity has become limited and he can only walk a few feet at present and then becomes extremely short of breath and has to rest. He also noticed some increased swelling of his belly and some swelling in his legs. He reports that he has been compliant with his medications, fluid and salt restriction. Is able to lay down, almost flat, needing only one to 2 pillows. He is able to talk in full sentences without any conversational dyspnea. He denies any cough, any fever, chills, denies any confusion. Denies any abdominal pain, nausea, vomiting or diarrhea. He denies any bleeding from anywhere. Chest x-ray and the CT showed large right-sided pleural effusion. . He was admitted for right pleural e ffusion. Recurrent right hepatitic hydrothorax Due to decompensated cirrhosis s/p right pig tail catheter on 11/30 had 5550 ml out. Will continue albumin q6 hours. pain meds ordered, levalbuterol Pig tail now off suction for 24 hours No fluid collection in this am CXR. Pig tail will likely come out today. Decompensated cirrhosis of liver due to alcohol abuse With ascites, thrombocytopenia and esophageal varices No history of variceal bleeding or hepatitic encephalopathy or SBP patient on Lasix and albumin. However BPs have been low so he has not been able to get much of lasix. Continue spironolactone and lactulose Hypertension Now low normal BP with large amount of pleural fluid drainage. Will hold losartan as I would like to have good blood pressure to diurese him CTD stage 2-3 Creatinine stable monitor BPH continue Flomax GERD. PPI DVT prophylaxis with teds and SCDs as patient is thrombocytopenic. Plan/VTE VTE Prophylaxis Ordered?: Yes VS, I&O, 24H, Fishbone Vital Signs/I&O Vital Signs Date Time Temp Pulse Resp B/P (MAP) Pulse Ox O2 Delivery O2 Flow Rate FiO2 12/02/20 07:24 97.6 68 18 100/56 (71) 95 Nasal Cannula 2.0 I&O- Last 24 Hours up to 6 AM 12/02/20 06:00 Intake Total 1880.0 ml Output Total 2420 ml Balance -540.0 ml Laboratory Data 24H LABS Laboratory Tests 2 12/02/20 04:54: Immature Granulocyte % (Auto) 0.5, Neutrophils (%) (Auto) 59.7, Lymphocytes (%) (Auto) 15.7L, Monocytes (%) (Auto) 12.2H, Eosinophils (%) (Auto) 11.2H, Basophils (%) (Auto) 0.7, Neutrophils # (Auto) 2.6, Lymphocytes # (Auto) 0.7L, Monocytes # (Auto) 0.5, Eosinophils # (Auto) 0.5, Basophils # (Auto) 0.0, Nucleated Red Blood Cells % (auto) 0.0, Immature Platelet Fraction 4.6, Anion Gap 5L, Glomerular Filtration Rate > 60.0, Calcium Level 8.3L CBC/BMP Laboratory Tests 12/02/20 04:54 Microbiology Microbiology 11/30/20 Acid Fast Stain, Received Pending 11/30/20 Mycobacterial Culture, Received Pending 11/30/20 Fungal Smear, Received Pending 11/30/20 Fungal Culture, Received Pending 11/30/20 Gram Stain - Final, Complete 11/30/20 Anaerobic Culture - Final, Complete 11/30/20 Body Fluid Culture, Received Pending RUBINA MARTIN MD Dec 02, 2020 11:27
--- NOTE | 2020-12-02 12:32 | REP ---
INDICATION: pleural effusion. COMPARISON: Multiple the latest 12/01/2020 TECHNIQUE: PA and lateral FINDINGS: The small pneumothorax seen previously has improved with only a small component persisting in the right lung apex. There is mild bilateral CP angle blunting. Mild patchy right lower lobe opacities are noted. The cardiomediastinal silhouette is unchanged for the heart is not enlarged. The osseous structures are stable. The right posterior lower lobe pigtail catheter is unchanged. IMPRESSION: 1. Evidence of improved but persistent pneumothorax. 2. Small bilateral pleural effusions. 3. Mild patchy right lower lobe opacities etiology uncertain. Follow-up is recommended. <Electronically signed by Aris Hassan > 12/02/20 [id number]
--- NOTE | 2020-12-02 16:05 | IPN ---
PROGRESS NOTE DATE: 12/02/2020 SUBJECTIVE: Mr. Okeefe has had a comfortable 24 hours. He has put out little from the chest tube in the last 12 hours. OBJECTIVE: VITAL SIGNS: Show a T-max of 98.8 with a heart rate that ranges between 60 and 72 in sinus rhythm. Respiratory rate of 18 to 20 without the use of accessory muscles who is 93% to 96% saturated on 1 liter nasal cannula and whose blood pressure is ranging between 93/53 to 116/59. INTAKE AND OUTPUT: Over the past 24 hours has been recorded as 1940 in and 207 out for a negativity of 130 mL. He put out 845 mL from the chest tube yesterday, but in the last 12 hours has only put out 50 mL. He weighs 99 kg today compared to 96.7 kg yesterday. RESPIRATORY: His lungs show equal breath sounds on either side with some inspiratory rales particularly on the right side at the end of inspiration. Percussion notes are full to the diaphragm. CARDIAC: Without murmurs, clicks, gallops, or rubs. I cannot feel his PMI. S1 and S2 are normal. ABDOMEN: Soft and nontender. Bowel sounds are positive. There is no hepatomegaly. No CVA tenderness. EXTREMITIES: Show no pretibial edema. No calf tenderness. No differential swelling of the upper extremities. SKIN: Warm, dry, and perfused without cyanosis or mottling, including that of the nail beds and knees. NECK: Supple. There is no jugular venous distention. No subcutaneous emphysema. Trachea is midline. MOUTH: Shows the mucous membranes to be pink and moist. Lips and commisures are without lesions and no thrush. EYES: Show his pupils equal and reactive. Extraocular muscles are intact. Sclerae nonicteric. NEUROLOGIC: Shows II through XII intact. Normal gross motor, gross sensation intact. Gait is not tested. PSYCHIATRIC: Shows him to be awake, alert, and oriented x3 with appropriate mood and affect and conversational. LABORATORY DATA: His white count today is 4.3 with a hemoglobin and hematocrit of 10.7 and 32.1 unchanged from yesterday with a platelet count of 48,000 again unchanged from yesterday. Differential shows 59% neutrophils, 15% lymphocytes, 12% monocytes. There are no immature forms and no toxic granulations. His chemistries today show a marginally low sodium of 133, which is unchanged from yesterday with a BUN and creatinine of 20 and 1.19, which is now completely normalized. Glucose is 114 with a calcium of 8.3. His chest x-ray today shows his lungs fully expand to the chest wall. Costophrenic angles are sharp. There is still a slightly diffuse haze in the right lower hemithorax, but there is no pleural effusion on the lateral films. This may be leftover compression atelectasis. IMPRESSION: 1. End-stage liver cirrhosis. 2. Ascitic pleural effusion. 3. Renal insufficiency, resolved. 4. Obesity. 5. Asthma. 6. Diastolic dysfunction. 7. Thrombocytopenia secondary to cirrhosis. 8. Hypertension. 9. Osteoarthritis. 10. Hypoalbuminemia. PLAN AND DISCUSSION: I will remove his chest catheter today. I have indicated to him that he can go home tomorrow, but I have no objections if the medical service wishes to send him home today. I will not need to see him back in followup; if his pleural effusion recurs, that can be addressed by his primary care physician. He should have x-rays once every two weeks to monitor the pleural effusion. If the pleural effusion returns significantly, he should undergo a thoracentesis to prevent lung entrapment. He is going to be seeing the transplant service in [place] in the beginning of December and I have indicated to him that he should inform the transplant surgeon that we drained over 5 liters of fluid from him this admission. He states that he is not yet on the transplant list, but that may impinge on the transplant strategy of the transplant service.
[2020-12-03] VITALS (7 sets, daily range): BP systolic 90–111; BP diastolic 50–65
[2020-12-03] MEDS: PERCOCET 5MG/325MG TAB PO PRN ×2 (00:41→08:05)
[2020-12-03] MEDS: LEVALBUTEROL 1.25 MG/0.5 ML CONCENTRATE NEB NEB SCH ×3 (01:39→13:33)
[2020-12-03] MEDS: FUROSEMIDE 40MG/4ML VIAL (J1940) IV SCH ×3 (03:32→14:04)
[2020-12-03 05:49] LABS: BASO % 0.5 % (0.0-1.0); EOS # 0.4 10^3/uL (0.0-0.5); EOS % 10.2 % (0.0-3.0); HEMATOCRIT 30.7 % (42.0-52.0); HEMOGLOBIN 10.4 g/dl (13.5-17.5); LYMPH # 0.6 10^3/uL (1.5-5.0); LYMPH % 14.2 % (24.0-44.0); MEAN CORPUSCULAR HGB CONC 33.9 g/dl (32.0-36.5); MEAN CORPUSCULAR VOLUME 103.4 fl (80.0-96.0); MONO # 0.5 10^3/uL (0.0-0.8); MONO % 13.2 % (2.0-8.0); NEUTROPHILS # 2.5 10^3/uL (1.5-8.5); NEUTROPHILS % 61.7 % (36.0-66.0); RED BLOOD COUNT 2.97 10^6/uL (4.30-6.10)
[2020-12-03 05:50] LABS: PLATELET COUNT, AUTOMATED 44 10^3/uL (150-450)
[2020-12-03 06:08] LABS: BLOOD UREA NITROGEN 18 MG/DL (7-18); CALCIUM LEVEL 8.3 MG/DL (8.8-10.2); CARBON DIOXIDE LEVEL 32 MEQ/L (21-32); CHLORIDE LEVEL 97 MEQ/L (98-107); CREATININE FOR GFR 1.17 MG/DL (0.70-1.30); GLOMERULAR FILTRATION RATE > 60.0 (>49); GLUCOSE, FASTING 109 MG/DL (70-100); POTASSIUM SERUM 3.8 MEQ/L (3.5-5.1); SODIUM LEVEL 136 MEQ/L (136-145)
[2020-12-03] MEDS: FLUTICASONE HFA 44 MCG 10.6GM INHALER (FLOVENT) INH SCH (07:47)
--- NOTE | 2020-12-03 08:13 | REP ---
INDICATION: pleural effusion COMPARISON: 12/02/2020 TECHNIQUE: PA and lateral. FINDINGS: Small residual right-sided pneumothorax and small amount of residual pleural fluid improved from prior examination noted. Subtle patchy right basilar airspace disease again cannot be excluded. IMPRESSION: 1. Miniscule residual pneumothorax cannot be excluded. 2. Trace amount of residual pleural fluid improved from prior examination. Subtle patchy right basilar airspace disease. <Electronically signed by Jose Qureshi > 12/03/20 0879
[2020-12-03] MEDS: LACTULOSE 20 GM/30 ML SYRUP UD PO SCH (08:42)
[2020-12-03] MEDS: MOM 30ML SUSPENSION UDC PO SCH ×2 (08:42→08:46)
[2020-12-03] MEDS: TAMSULOSIN 0.4 MG CAP PO SCH (08:42)
[2020-12-03] MEDS: DOCUSATE SODIUM 100MG CAPSULE PO SCH (08:42)
[2020-12-03] MEDS: PANTOPRAZOLE 40MG TAB (PROTONIX) PO SCH (08:43)
[2020-12-03] MEDS: POTASSIUM CHLORIDE 10 MEQ SR TABLET PO SCH (08:43)
[2020-12-03] MEDS: SPIRONOLACTONE 50 MG TAB PO SCH (08:43)
[2020-12-03] MEDS ORDERED: POTA1TAB23 PO (12:17)
[2020-12-03] MEDS ORDERED: ACET1TAB55 PO (12:17)
[2020-12-03] MEDS ORDERED: PERCOCET PO (12:17)
[2020-12-03] MEDS ORDERED: FURO40TA2 PO (12:17)
[2020-12-03] MEDS ORDERED: PANT40TA29 PO (12:17)
[2020-12-03] MEDS ORDERED: CONS10SO3 PO (12:17)
--- NOTE | 2020-12-03 12:23 | DS.PDOC ---
Discharge Summary General Date of Admission Nov 30, 2020 at 13:07 Date of Discharge 12/03/20 Discharge Summary PROCEDURES PERFORMED DURING STAY: [None]. ADMITTING DIAGNOSES: R hepatic hydrothorax Decompensated cirrhosis of liver due to alcohol abuse Hypertension CKD stage 3 BPH GERD DISCHARGE DIAGNOSES: R hepatic hydrothorax Decompensated cirrhosis of liver due to alcohol abuse Hypertension CKD stage 3 BPH GERD. COMPLICATIONS/CHIEF COMPLAINT: Decompensated Hepatic Cirrhosis Pleural Effusion. HISTORY OF PRESENT ILLNESS:60 year old male with decompensated alcoholic cirrhosis with ascites, thrombocytopenia, esophageal varices with h/o right sided hepatic hydrothorax meeting a recurrent thoracocentesis presents to the ED today for 4-5 days of increasing shortness of breath. With this increasing s hortness of breath. His exercise capacity has become limited and he can only walk a few feet at present and then becomes extremely short of breath and has to rest. He also noticed some increased swelling of his belly and some swelling in his legs. He reports that he has been compliant with his medications, fluid and salt restriction. Is able to lay down, almost flat, needing only one to 2 pillows. He is able to talk in full sentences without any conversational dyspnea. He denies any cough, any fever, chills, denies any confusion. Denies any abdominal pain, nausea, vomiting or diarrhea. He denies any bleeding from anywhere. Chest x-ray and the CT showed large right-sided pleural effusion. . He was admitted for right pleural effusion. Have consulted Dr. Castro for a possible thoracocentesis. HOSPITAL COURSE: Recurrent right hepatitic hydrothorax Due to decompensated cirrhosis s/p right pig tail catheter on 11/30 had 5550 ml out. Will continue albumin q6 hours. pain meds ordered, levalbuterol Pig tail now off suction for 24 hours No fluid collection in this am CXR. Pig tail will likely come out today. Decompensated cirrhosis of liver due to alcohol abuse With ascites, thrombocytopenia and esophageal varices No history of variceal bleeding or hepatitic encephalopathy or SBP patient on Lasix and albumin. However BPs have been low so he has not been able to get much of lasix. Continue spironolactone and lactulose Hypertension Now low normal BP with large amount of pleural fluid drainage. Will hold losartan as I would like to have good blood pressure to diurese him CTD stage 2-3 Creatinine stable monitor BPH continue Flomax GERD. PPI DISCHARGE MEDICATIONS: Please see below. ALLERGIES: Please see below. PHYSICAL EXAMINATION ON DISCHARGE: VITAL SIGNS: please see below General: NAD, comfortable HEENT: PERRLA, EOMI, sclerae clear Neck: supple, normal ROM, no JVD Respiratory: lungs CTAB, no wheeze, no rales, no crackles CVS: RRR, normal S1, S2, no murmurs Abdo: soft, no masses, no hepatosplenomegaly, BS+, no rebound tenderness, ascites present Extremities: no edema, pulses 2+ MSK: no joint deformities, normal ROM Neuro: no focal neuro deficits, moving all 4 extremities, CN2-12 intact. Strength 5/5 in all 4 extremities. No nystagmus. Psych: calm, cooperative, AAO x 3 LABORATORY DATA: Please see below. IMAGING: CXR (11/30/20): FINDINGS: There is a large right pleural effusion with adjacent right lung compressive atelectasis.Left lung is clear. The remainder of the study appears unchanged. CXR (12/01/20): Pigtail drainage catheter again seen inferiorly and posteriorly on the right. Small right pneumothorax. Mild patchy parenchymal opacities right lung base. IMPRESSION: Large right pleural effusion. CXR (12/03/20): 1. Miniscule residual pneumothorax cannot be excluded. 2. Trace amount of residual pleural fluid improved from prior examination. Subtle patchy right basilar airspace disease PROGNOSIS: fair ACTIVITY: [As tolerated]. DIET: 2g sodium restricted DISCHARGE PLAN: DC home with PCP follow up in 3 days. Requires weekly albumin infusions via [facility]. Needs to repeat chest XR [id number] to evaluate for re-accumulation of hydrothorax. DISPOSITION: home DISCHARGE INSTRUCTIONS: . Please follow-up with your primary care doctor within 3-5 days . Please obtain follow up chest X rays every 2 weeks to monitor reaccumulation of fluid in your chest . You require weekly albumin infusions, please continue to receive infusions qweekly at the [facility]. . Please taking medications as prescribed. Please stop taking losartan until you follow up with your PCP. Please continue . If you develop bleeding, chest pain, shortness of breath, seizures, nausea, fevers, or otherwise worsening of your symptoms, please call 911 or return to the nearest emergency room ITEMS TO FOLLOWUP ON ON OUTPATIENT: 1. Weekly albumin infusion 2. Chest XR [id number]. DISCHARGE CONDITION: [Stable]. TIME SPENT ON DISCHARGE: 35 minutes Vital Signs/I&Os Vital Signs Date Time Temp Pulse Resp B/P (MAP) Pulse Ox O2 Delivery O2 Flow Rate FiO2 12/03/20 11:18 97.6 54 18 92/57 (69) 91 Room Air 12/02/20 12:40 1.0 I&O- Last 24 Hours up to 6 AM 12/03/20 06:00 Intake Total 3200.0 ml Output Total 2925 ml Balance 275.0 ml Laboratory Data Labs 24H Laboratory Tests 2 12/03/20 05:19: Immature Granulocyte % (Auto) 0.2, Neutrophils (%) (Auto) 61.7, Lymphocytes (%) (Auto) 14.2L, Monocytes (%) (Auto) 13.2H, Eosinophils (%) (Auto) 10.2H, Basophils (%) (Auto) 0.5, Neutrophils # (Auto) 2.5, Lymphocytes # (Auto) 0.6L, Monocytes # (Auto) 0.5, Eosinophils # (Auto) 0.4, Basophils # (Auto) 0.0, Nucl eated Red Blood Cells % (auto) 0.0, Immature Platelet Fraction 4.4, Anion Gap 7L, Glomerular Filtration Rate > 60.0, Calcium Level 8.3L CBC/BMP Laboratory Tests 12/03/20 05:19 Microbiology Microbiology 11/30/20 Acid Fast Stain, Received Pending 11/30/20 Mycobacterial Culture, Received Pending 11/30/20 Fungal Smear, Received Pending 11/30/20 Fungal Culture, Received Pending 11/30/20 Gram Stain - Final, Complete 11/30/20 Anaerobic Culture - Final, Complete 11/30/20 Body Fluid Culture - Final, Complete Staphylococcus Hominis Ssp Angel Discharge Medications Scheduled Fluticasone Propionate (Flovent Hfa) 44 Mcg/Act Aer.w.adap, 1 PUFF INH BID, (Reported) Furosemide (Furosemide) 40 Mg Tablet, 1 TAB PO DAILY Lactulose (Constulose) 10 Gm/15 Ml Solution, 30 ML PO DAILY Multivitamin (Multivitamins) 1 Each Tablet, 1 TAB PO DAILY, (Reported) Omeprazole (Omeprazole) 40 Mg Capsule.dr, 40 MG PO DAILY, (Reported) Pantoprazole Sodium (Pantoprazole Sodium) 40 Mg Tablet.dr, 40 MG PO DAILY Potassium Chloride (Potassium Chloride) 10 Meq Tablet.er, 10 MEQ PO DAILY Spironolactone (Spironolactone) 100 Mg Tablet, 100 MG PO DAILY, (Reported) Tamsulosin Hcl (Tamsulosin HCl) 0.4 Mg Capsule, 0.4 MG PO DAILY, (Reported) Scheduled PRN Acetaminophen (Acetaminophen) 325 Mg Tablet, 650 MG PO Q6HP PRN for T > 101.5 or GÓMEZ Albuterol Sulfate (Ventolin Hfa) 18 Gm Hfa.aer.ad, 2 PUFFS INH QID PRN for SOB/WHEEZING, (Reported) Docusate Sodium (Colace) 100 Mg Capsule, 100 MG PO BID PRN for CONSTIPATION, (Reported) Oxycodone/Acetaminophen (Oxycodone-Acetaminophen 5-325) 1 Each Tablet, 1 TAB PO Q4H PRN for MODERATE PAIN (PS 5-7) Allergies Coded Allergies: POLLEN (Verified Allergy, Unknown, 05/22/20) RANDAL DIXON MD Dec 03, 2020 12:23
== END 2020-12-03 16:14 | disposition home or self-care (01) | DRG 187 ==
LOC: M ED 10:39 → M ED INP 13:07 → ENRESERV 13:56 → M PCU 15:09
PROVIDERS: ADMIT Internal Medicine Nephrology; ATTEND Family Medicine
PROC: 0W993ZZ Drainage of Right Pleural Cavity, Percutaneous Approach (ICD-10-PCS; principal; 2020-11-30)
DX: J94.8 Other specified pleural conditions (principal); I50.32 Chronic diastolic (congestive) heart failure; I13.0 Hypertensive heart and chronic kidney disease with heart failure and stage 1 through stage 4 chronic kidney disease, or unspecified chronic kidney disease; I85.10 Secondary esophageal varices without bleeding; K70.31 Alcoholic cirrhosis of liver with ascites; N18.30 Chronic kidney disease, stage 3 unspecified; N40.0 Benign prostatic hyperplasia without lower urinary tract symptoms; K21.9 Gastro-esophageal reflux disease without esophagitis; D69.6 Thrombocytopenia, unspecified; Z79.899 Other long term (current) drug therapy; E66.9 Obesity, unspecified; J45.909 Unspecified asthma, uncomplicated; K64.8 Other hemorrhoids; K31.89 Other diseases of stomach and duodenum; M19.90 Unspecified osteoarthritis, unspecified site

== ENCOUNTER 2020-12-11 09:47 | Outpatient (CLI) | payer MEDICARE ==
[~2020-12-11] VITALS: Ht 177.8 cm; Wt 102.7 kg
[~2020-12-11 09:47] MED LIST changes: +ACET1TAB55 PO; +COLA100C5 PO; +PANT40TA29 PO; +PERCOCET PO; +TORS100T PO
[2020-12-11 10:00] VITALS: BP 131/77
[2020-12-11 11:42] VITALS: BP 137/88
[2020-12-11 13:37] VITALS: BP 117/67
== END 2020-12-11 13:45 | disposition home or self-care (01) ==
LOC: M INFU 09:47
PROVIDERS: ATTEND Family Medicine
DX: K72.90 Hepatic failure, unspecified without coma (principal)
CPT/HCPCS: 36415; 36430; 82040; P9047

== ENCOUNTER → 2020-12-16 | Outpatient (CLI) | payer MEDICARE ==
--- NOTE | 2020-12-16 09:55 | REPPI ---
INDICATION: PLEURAL EFFUSION COMPARISON: 12/03/2020. TECHNIQUE: PA/Lateral FINDINGS: There is a moderate to large right pleural effusion. Left lung is clear with no left effusion noted. Visualized mediastinal silhouette is unchanged. There are mild degenerative changes of the spine. IMPRESSION: New moderate to large right pleural effusion. <Electronically signed by Eliezer Chung > 12/16/20 0999
== END ==
LOC: M PLAIMG 09:03
PROVIDERS: ATTEND Thoracic Surgery (Cardiothoracic Vascular Surgery)
DX: J90 Pleural effusion, not elsewhere classified (principal)

== ENCOUNTER 2020-12-17 08:36 | Outpatient (CLI) | payer MEDICARE ==
[~2020-12-17] VITALS: Ht 177.8 cm; Wt 102.5 kg
[~2020-12-17 08:36] MED LIST changes: -CEPH500C PO; -DOXY1CAP62 PO
[2020-12-17 08:48] VITALS: BP 133/84
[2020-12-17 10:00] VITALS: BP 133/84
[2020-12-17 12:12] VITALS: BP 119/78
[2020-12-17 13:00] VITALS: BP 142/78
== END 2020-12-17 13:00 | disposition home or self-care (01) ==
LOC: M INFU 08:36
PROVIDERS: ATTEND Family Medicine
DX: K72.90 Hepatic failure, unspecified without coma (principal)
CPT/HCPCS: 36415; 36430; 82040; P9047

== ENCOUNTER → 2020-12-17 | Outpatient (CLI) | payer MEDICARE ==
[~2020-12-17] VITALS: Ht 177.8 cm; Wt 104.5 kg
[~2020-12-17] MED LIST changes: +CEPH500C PO; +DOXY1CAP62 PO
[2020-12-17 13:00] VITALS: BP 122/73
--- NOTE | 2020-12-18 14:24 | IRPN ---
[facility] IR Progress Note IR Progress Note DATE: Dec 17, 2020 FOLLOW-UP: 60-year-old male with alcohol-related cirrhosis with recurrent hepatic hydrothorax requiring chest tube insertion in August 2020, thoracocentesis in October 2020 and repeat chest tube insertion in November 2020. Patient has now seen [facility] and states he was not listed for transplant. He has been off alcohol now for many months. He is on 100 mg spironolactone and only 60 mg of Lasix a day. He is still active and ambulatory. He is not on home oxygen. He reports he had endoscopy in August but I do not see any endoscopy reports. He denies hematemesis or melena. He denies varices. ON EXAMINATION: Patient appears well. Comfortable at rest. No shortness of breath. No scleral icterus. Decreased breath sounds right lung. Abdomen soft nontender. LABS: 12/03/2020 hemoglobin 10.4 hematocrit 30.7 WBC 4.0 platelets 44 sodium 136 potassium 3.8 BUN 18 creatinine 1.17 GFR greater than 60. 11/30/2020 total bilirubin 2.6 direct bilirubin 1.3 AST 79 ALT 41 ALP 243 INR 1.3 12/17/2020 albumin 2.8 07/24/2020 ammonia 62 Na Meld score: 15 Imaging: I personally reviewed the chest x-ray performed 12/16/2020. He has a moderate size right pleural effusion. This has reaccumulated in 13 days since his last intervention. IMPRESSION: 60-year-old male with alcohol-related cirrhosis with refractory hepatic hydrothorax. Patient is currently only on spironolactone 100 mg a day and one tablet of Lasix. There is room to move up to 200 mg spironolactone a day and 120 mg of Lasix with careful monitoring of renal function. This may help improve his hepatic hydrothorax and delay reaccumulation and need for thoracocentesis. Patient has severe thrombocytopenia, hyperbilirubinemia and remains at very high-risk candidate for TIPS. I think increasing his diuretics for improved control of hepatic hydrothorax is the best and safest option at present. Patient also needs to follow-up with GI for routine surveillance for varices. Cc Dr. Castro CC Dr. Yap Cc Dr. Allison Brady Allergies Coded Allergies: POLLEN (Verified Allergy, Unknown, 9/30/20) VS,Fishbone, I+O VS, Fishbone, I+O Vital Signs Date Time Temp Pulse Resp B/P (MAP) Pulse Ox O2 Delivery O2 Flow Rate FiO2 12/17/20 13:00 98.6 72 20 122/73 (89) 96 Room Air ZION JIMÉNEZ MD Dec 18, 2020 14:24
== END ==
LOC: M IRPOV 09:28
PROVIDERS: ATTEND Thoracic Surgery (Cardiothoracic Vascular Surgery)
DX: J94.8 Other specified pleural conditions (principal); K70.30 Alcoholic cirrhosis of liver without ascites

== ENCOUNTER → 2020-12-20 | Outpatient (CLI) | payer MEDICARE ==
[~2020-12-20] MED LIST changes: +LIDOCAINE 1% MDV 20ML VIAL As Ordered ONE; +SODIUM BICARBONATE 8.4% INJ 50MEQ 50 ML VIAL As Ordered ONE
[2020-12-20 09:43] LABS: SOURCE, BODY FLUID PLEURAL
[2020-12-20 09:44] LABS: APPEARANCE, BODY FLUID CLOUDY (CLEAR); PLEURAL FL COLOR YELLOW (COLORLESS)
[2020-12-20 09:54] LABS: PH BODY FLUID 7.648 UNITS (NOT ESTABLISHED); SOURCE, BODY FLUID pH PLEURAL
[2020-12-20 10:04] LABS: AMYLASE, BODY FLUID 17 U/L (NOT ESTABLISHED); LDH, BODY FLUID 123 U/L (NOT ESTABLISHED); SOURCE, BODY FLUID AMYLASE PLEURAL; SOURCE, BODY FLUID GLUCOSE PLEURAL; SOURCE, BODY FLUID LDH PLEURAL; SOURCE, BODY FLUID TOT PROTEIN PLEURAL; TOTAL PROTEIN, BODY FLUID 1.8 G/DL (NOT ESTABLISHED)
[2020-12-20 10:45] VITALS: BP 116/70
--- NOTE | 2020-12-20 10:55 | REP ---
INDICATION: POST RIGHT THORA, 2 VIEW. COMPARISON: Comparison chest x-ray 03 December 2020. 16 December 2020 radiograph is also reviewed.. TECHNIQUE: PA and lateral views of the chest. FINDINGS: There is still moderate right pleural effusion only slightly improved from the 16 December 2020 study. There is no evidence of pneumothorax. Left lung remains clear. IMPRESSION: Moderate right pleural effusion persists. No pneumothorax. <Electronically signed by Sunny Stoner > 12/20/20 [id number]
--- NOTE | 2020-12-20 13:46 | REP ---
INDICATION: RIGHT PLEURAL EFFUSION The patient has a history of right pleural effusion COMPARISON: None. TECHNIQUE: The procedure was performed by ANJANA Gupta, under the direct supervision of Dr. Stoner The risks and benefits of the procedure were explained to the patient and an informed consent was obtained both verbally and written. Directly prior to the start of the procedure a formal time-out was completed in the procedure room. Pleural fluid in right lung zone was localized using ultrasound guidance. The skin was prepped and draped in a sterile fashion. Eight ML of buffered lidocaine was used as a local anesthetic. Using ultrasound guidance an 8-Maltese multi side-hole catheter was inserted using trocar technique. FINDINGS: One thousand three hundred eighty-five mL of silvia colored fluid was withdrawn and sent to the laboratory for further analysis. The patient tolerated the procedure well and there were no immediate complications. After the appropriate amount of monitored convalescence, the patient was discharged from the department. IMPRESSION: Right sided thoracentesis with removal 1385 mL of silvia colored pleural fluid. <Electronically signed by Betzaida Starkey > 12/20/20 1335 <Electronically signed by Sunny Sotner > 12/20/20 1342
== END ==
LOC: M IRPRO 07:59
PROVIDERS: ATTEND Thoracic Surgery (Cardiothoracic Vascular Surgery)
DX: J90 Pleural effusion, not elsewhere classified (principal)

== ENCOUNTER 2020-12-26 07:32 | Outpatient (CLI) | payer MEDICAID, MEDICARE ==
[~2020-12-26] VITALS: Ht 177.8 cm; Wt 104.5 kg
[~2020-12-26 07:32] MED LIST changes: -LIDOCAINE 1% MDV 20ML VIAL As Ordered ONE; -SODIUM BICARBONATE 8.4% INJ 50MEQ 50 ML VIAL As Ordered ONE
[2020-12-26 09:32] VITALS: BP 125/69
[2020-12-26 10:40] VITALS: BP 117/74
[2020-12-26 11:39] VITALS: BP 139/67
== END 2020-12-26 12:00 | disposition home or self-care (01) ==
LOC: M INFU 07:32
PROVIDERS: ATTEND Family Medicine
DX: K74.60 Unspecified cirrhosis of liver (principal)
CPT/HCPCS: 36430; 36592; 82040; P9047

== ENCOUNTER 2020-12-31 10:03 | Outpatient (CLI) | payer MEDICARE ==
[~2020-12-31] VITALS: Ht 177.8 cm; Wt 104.5 kg
[2020-12-31 10:23] VITALS: BP 112/69
[2020-12-31 11:32] VITALS: BP 112/69
[2020-12-31 13:15] VITALS: BP 122/68
[2020-12-31 13:47] VITALS: BP 120/71
== END 2020-12-31 13:55 | disposition home or self-care (01) ==
LOC: M INFU 10:03
PROVIDERS: ATTEND Family Medicine
DX: K72.90 Hepatic failure, unspecified without coma (principal)
CPT/HCPCS: 36430; 82040; P9047

== ENCOUNTER 2021-01-03 07:49 | Inpatient (IN) | payer MEDICARE ==
[~2021-01-03] VITALS: Ht 179.1 cm; Wt 98.5 kg
[2021-01-03] MEDS ORDERED: DOXY100C37 PO (09:02)
[2021-01-03] MEDS ORDERED: SODIUM BICARBONATE 8.4% INJ 50MEQ 50 ML VIAL As Ordered ONE (10:29)
[2021-01-03] MEDS ORDERED: LIDOCAINE 1% MDV 20ML VIAL As Ordered ONE ×2 (10:29→13:51)
--- NOTE | 2021-01-03 11:32 | REP ---
INDICATION: POST RIGHT THORA, 2 VIEW. COMPARISON: 12/20/2020. TECHNIQUE: Two views of the chest are performed. FINDINGS: There is a small right pneumothorax status post right thoracentesis. There is a very small amount of residual right pleural fluid. The heart is normal in size. The mediastinal silhouette is unremarkable. There are degenerative changes of the spine IMPRESSION: Small right pneumothorax status post right thoracentesis. Follow-up recommended. <Electronically signed by Eliezer Chung > 01/03/21 1129
[2021-01-03] MEDS ORDERED: ACETAMINOPHEN 325 MG TAB As Ordered ONE (11:41)
--- NOTE | 2021-01-03 13:08 | REP ---
INDICATION: POST RIGHT THORA/PNEUMO, 2 VIEW. COMPARISON: 01/03/2021, 11:15 a.m.. TECHNIQUE: Two views of the chest are performed. FINDINGS: Previously noted right pneumothorax has mildly increased in size. The air gap at the apex is approximately 4 cm. The pneumothorax extends inferiorly. There is a small right pleural effusion. There is mild atelectatic change in the right lung base. Left lung remains clear. The heart and mediastinum are unremarkable and unchanged. IMPRESSION: Mild increase in size of right pneumothorax. <Electronically signed by Eliezer Chung > 01/03/21 2110
--- NOTE | 2021-01-03 14:46 | REP ---
INDICATION: POST CHEST TUBE PLACEMENT, RIGHT, 1 VIEW. COMPARISON: 01/03/2021, 1:02 p.m. TECHNIQUE: Single frontal view of the chest is performed. FINDINGS: There is placement of a right chest catheter. The right pneumothorax has resolved. Mild atelectatic changes are seen in the right lung base. Heart and mediastinum are unchanged. Left lung is clear. IMPRESSION: Placement of right chest tube with resolution of right pneumothorax. <Electronically signed by Eliezer Chung > 01/03/21 [id number]
[2021-01-03] MEDS ORDERED: ALBUTEROL 90 MCG/ACT 8GM HFA INHALER INH PRN (15:00)
[2021-01-03] MEDS ORDERED: DOCUSATE SODIUM 100MG CAPSULE PO PRN (15:05)
--- NOTE | 2021-01-03 15:49 | HPE ---
HISTORY AND PHYSICAL DATE OF ADMISSION: 01/03/2021 CHIEF COMPLAINT: Postprocedure pneumothorax. HISTORY OF PRESENT ILLNESS: Mr. Okeefe is a 61-year-old male with a past medical history of alcoholic cirrhosis with recurrent ascites and pleural effusion who presented as an outpatient for repeat thoracentesis. Patient has a history of recurrent hepatic hydrothorax with a recurrent right pleural effusion that has been requiring frequent thoracenteses as an outpatient due to symptomatic shortness of breath and dyspnea with reaccumulation. He has previously been requiring paracenteses as well in the past but more recently in the past several months has been requiring multiple thoracentesis due to the rapid reaccumulation. His last hospitalization was in November of this year, again with right pleural effusion secondary to his hepatic hydrothorax and again requiring a thoracentesis. Patient follows up with Dr. Castro as an outpatient and was seen in the end of November and scheduled for thoracentesis every 2 weeks. Patient also has been evaluated by [facility] for possibility of a liver transplant. At the time, they had not thought that he was decompensated enough to require being placed on the liver transplant list, and he was due to have a repeat followup this month, but his appointment was changed, he states now, until January or February. Patient also follows up with gastroenterology and nephrology. He is on torsemide and spironolactone for diuretics. He does also does have a history of hepatic encephalopathy, for which he is on lactulose. Patient also had been evaluated in the past by interventional radiology for possibility of transjugular intrahepatic portosystemic shunt (TIPS), but they had declined TIPS procedure at that time. Today, patient states that he had come in as scheduled for his usual thoracentesis with radiology. Of note, patient had also been complaining of pain in his left hand, where he had an intravenous (IV) placed previously with increasing erythema, swelling, and tenderness. He had been sent to the emergency department (ED) for evaluation of cellulitis, and he was given antibiotics to take at home with doxycycline. He then had his scheduled thoracentesis with removal of almost 2 liters of red-tinged pleural fluid. Post procedure, patient denied having any significant chest pain or shortness of breath. He was saturating around 94% on room air. His postprocedural chest x-ray did show a small right apical pneumothorax as well as suspected air tracking along the lateral part of the chest on the right, which may have been a pneumothorax ex vacuo. He was kept for further observation and had a repeat chest x-ray performed 2 hours later. On the repeat chest x-ray, the pneumothorax on the right had significantly increased in size with a measurement of almost 4 cm from the apex. Patient continued to remain asymptomatic throughout this as well as hemodynamically stable. Given the increasing pneumothorax, however, in particular the size, patient was consented for a chest tube for evacuation of the air. PAST MEDICAL AND SURGICAL HISTORY: 1. Asthma. 2. Alcoholic liver cirrhosis with recurrent ascites and pleural effusion with prior history of recurrent thoracenteses and paracenteses. 3. Thrombocytopenia secondary to his chronic liver cirrhosis. 4. Obesity. 5. Hypertension. 6. Osteoarthritis. 7. Diastolic dysfunction. 8. Bilateral inguinal hernia surgery. 9. Right knee arthroplasty. 10. Fourth finger tendon repair. HOME MEDICATIONS: - acetaminophen - albuterol - Colace - Flovent - doxycycline, - furosemide 40 mg by mouth daily - pantoprazole - potassium chloride 10 mEq by mouth daily - spironolactone 100 mg daily - tamsulosin 0.4 mg daily ALLERGIES: No known drug allergies. Reports seasonal allergies to pollen. SOCIAL HISTORY: Patient previously used to smoke cigars. He is a former alcohol user. Used to drink a bottle of hard liquor a week. His last alcohol use was in the spring. He uses occasional marijuana. FAMILY HISTORY: Father with a history of heart disease. Mother with known medical problems. PHYSICAL EXAMINATION: VITAL SIGNS: Temperature 98.7, pulse 63, respirations 20, blood pressure 117/67, oxygen saturation 100% on nonrebreather. GENERAL: Patient is a pleasant male. Is overweight. Sitting in the stretcher in no acute distress. He is able to speak in complete sentences. He is alert and oriented times three. HEENT: Is normocephalic, atraumatic. Pupils are reactive to light bilaterally. The patient has mild scleral icterus noted. NECK: Supple. Trachea is midline. No palpable cervical lymphadenopathy. CARDIAC: Regular rate and rhythm. Normal S1, S2. Unable to appreciate any murmurs. LUNGS: Diminished breath sounds on the right with hyperresonance to percussion. There is mild expiratory wheezing on the left side with no rhonchi. Minimal crackles at the left base. ABDOMEN: Soft, nontender with no clear fluid wave or palpable mass. EXTREMITIES: There is no significant bilateral lower extremity edema. On the left hand on the dorsal surface there is area of erythema, increased swelling, tenderness, and warmth. No labs for today. IMAGING: Chest x-ray post procedure showed a small right apical pneumothorax as well as some air tracking more laterally on the right. There is very small amount of residual right pleural effusion. Repeat chest x-ray 2 hours later showed significant increase in the right pneumothorax with now air noted approximately 4 cm from the apex. Pneumothorax is also extending more inferiorly. There is a small right pleural effusion. There is mild atelectatic change of the right lung base. ASSESSMENT AND PLAN: Mr. Okeefe is a 61-year-old male with a past medical history of cirrhosis with recurrent ascites and hepatic hydrothorax, history of chronic thrombocytopenia, history of hepatic encephalopathy, and asthma who presented as an outpatient for a scheduled thoracentesis. Patient has a history of recurrent right hepatic hydrothorax and has required thoracentesis every 2 weeks, being managed by cardiothoracic surgery. He had come in for his usual scheduled thoracentesis but otherwise had not noticed significant worsening in terms of his shortness of breath or dyspnea on exertion. He had not noticed any fevers or chills and denied any chest pain. He denied noticing increased lower extremity edema or orthopnea. He did, however, complain of some increased erythema, warmth, swelling, and tenderness in his left hand from a prior intravenous (IV) site, consistent with a local cellulitis. He was seen in the emergency department (ED) earlier, before his thoracentesis, and given doxycycline to take on discharge. He then had his scheduled thoracentesis with removal of almost 2 liters of fluid. Post procedure his chest x-ray showed evidence initially of a small right apical pneumothorax. He was kept for further monitoring, and a repeat chest x-ray 2 hours later showed significant increase in the right pneumothorax. Pulmonary was therefore called, and patient was consented for a chest tube placement for evacuation of the pneumothorax. He had 14-Wolof chest tube placed in the right and upon placement immediately did have brisk air leak noted, which then improved. His chest x-ray done post chest tube placement showed expansion of his right lung with no significant residual pneumothorax. He did have some red-tingled pleural fluid in the chest tube as well. 1. Postprocedural right-sided pneumothorax, status post chest tube placement. Patient's postprocedure chest x-ray shows re-expansion of the right lung. He was on 20 cm wall suction. He does not appear to have any further air leak on the chest tube currently with wall suction. Will attempt to place him to water seal and repeat a chest x-ray in 2 hours. If there is no significant reaccumulation of his pneumothorax, will maintain him to water seal and repeat CXR in AM. Will start patient on Percocet for pain control and incentive spirometer. 2. Localized cellulitis. Will start patient on Keflex for his local cellulitis with a methicillin-resistant Staphylococcus aureus (MRSA) screen. Will check white blood cell count (WBC) for any leukocytosis and monitor his fever curve. 3. History of cirrhosis with chronic thrombocytopenia with a history of hepatic encephalopathy. Will continue patient on his home medications for his history of decompensated cirrhosis with Lasix and Aldactone. Will continue his lactulose for his history of hepatic encephalopathy. Will check coagulations and monitor his platelets. He does have a history of chronic thrombocytopenia. If he does have significant thrombocytopenia, would transfuse as needed. Would get an active type and screen. 4. Asthma. Will continue patient with his home inhaler, Flovent and albuterol as needed. 5. BPH. Continue with Flomax. 6. Gastrointestinal (GI) prophylaxis. Patient on pantoprazole for home medication. Will continue. 7. Code status. Full code. 8. Deep venous thrombosis (DVT) prophylaxis. Heparin. MTDD
[2021-01-03 15:57] LABS: BASO % 0.4 % (0.0-1.0); EOS # 0.2 10^3/uL (0.0-0.5); EOS % 3.6 % (0.0-3.0); HEMATOCRIT 33.3 % (42.0-52.0); HEMOGLOBIN 11.2 g/dl (13.5-17.5); LYMPH # 0.6 10^3/uL (1.5-5.0); LYMPH % 13.3 % (24.0-44.0); MEAN CORPUSCULAR HEMOGLOBIN 34.8 pg (27.0-33.0); MEAN CORPUSCULAR HGB CONC 33.6 g/dl (32.0-36.5); MEAN CORPUSCULAR VOLUME 103.4 fl (80.0-96.0); MONO # 0.9 10^3/uL (0.0-0.8); MONO % 19.4 % (2.0-8.0); NEUTROPHILS % 63.1 % (36.0-66.0); RED BLOOD COUNT 3.22 10^6/uL (4.30-6.10); WHITE BLOOD COUNT 4.7 10^3/uL (4.0-10.0)
[2021-01-03 15:58] LABS: PLATELET COUNT, AUTOMATED 63 10^3/uL (150-450)
[2021-01-03] MEDS: oxyCODONE 5MG TAB PO PRN (15:58)
[2021-01-03 16:16] LABS: CALCIUM LEVEL 8.4 MG/DL (8.8-10.2); CREATININE FOR GFR 1.33 MG/DL (0.70-1.30); GLOMERULAR FILTRATION RATE 58.2 (>49); POTASSIUM SERUM 3.4 MEQ/L (3.5-5.1)
[2021-01-03 16:21] LABS: INR 1.51; PROTHROMBIN TIME 18.5 SECONDS (12.5-14.3)
[2021-01-03] MEDS ORDERED: SLF 3 ML SYR IV PRN (16:45)
--- NOTE | 2021-01-03 17:27 | REP ---
INDICATION: RT PLEURAL EFFUSION The patient has a history of a right pleural effusion COMPARISON: None. TECHNIQUE: The procedure was performed by Betzaida Starkey [facility], under the direct supervision of Dr. Chung The risks and benefits of the procedure were explained to the patient and an informed consent was obtained both verbally and written. Directly prior to the start of the procedure a formal time-out was completed in the procedure room. Pleural fluid in right lung zone was localized using ultrasound guidance. The skin was prepped and draped in a sterile fashion. Ten ML of buffered lidocaine was used as a local anesthetic. Using ultrasound guidance an 8-Bulgarian multi side-hole catheter was inserted using trocar technique. FINDINGS: 1895 ML of dark silvia colored fluid was withdrawn and sent to the laboratory for further analysis. The patient tolerated the procedure well and there were no immediate complications. A small pneumothorax was visualized on the chest x-ray directly after the procedure. A follow-up chest x-ray done approximately 2 hours later demonstrated the pneumothorax enlarging. Dr. Reece from the pulmonary department was consulted and will be taking over care of the patient. IMPRESSION: Ultrasound-guided thoracentesis with removal of 1895 mL dark silvia pleural fluid. <Electronically signed by Betzaida Starkey > 01/03/21 1326 <Electronically signed by Eliezer Chung > 01/03/21 1035
[2021-01-03] MEDS ORDERED: MORPHINE 2 MG/ML 1ML VIAL (J2270) IV ONE (18:30)
--- NOTE | 2021-01-03 18:30 | REP ---
INDICATION: s/p pneumothorax.. COMPARISON: 01/03/2021 2:20 p.m. TECHNIQUE: Single portable AP view of the chest was performed. FINDINGS: Right chest tube remains in good position. There is a very small right base pneumothorax and pleural effusion. There are mild atelectatic changes in the right lung base. The remainder of the study is unchanged. IMPRESSION: There is small right base pneumothorax and pleural effusion, with mild atelectatic changes inferiorly in the right lung. <Electronically signed by Eliezer Chung > 01/03/21 1135
[2021-01-03] MEDS: POTASSIUM CHLORIDE 10 MEQ SR TABLET PO SCH (18:41)
[2021-01-03] MEDS: PANTOPRAZOLE 40MG TAB (PROTONIX) PO SCH (18:41)
[2021-01-03] MEDS: CEPHALEXIN 500 MG CAP PO SCH (18:42)
[2021-01-03] MEDS: FLUTICASONE HFA 110 MCG 12 GM INHALER (FLOVENT) INH SCH (19:27)
[2021-01-03 20:00] VITALS: BP 98/57
[2021-01-03] MEDS ORDERED: PHYTONADIONE 5 MG TAB PO ONE (20:20)
[2021-01-03] MEDS ORDERED: POTASSIUM CHLORIDE 10 MEQ SR TABLET PO ONE (20:20)
[2021-01-03] MEDS ORDERED: TAMSULOSIN 0.4 MG CAP PO SCH (21:00)
[2021-01-03] MEDS: LACTULOSE 20 GM/30 ML SYRUP UD PO SCH (21:06)
[2021-01-03] MEDS: HEPARIN SOD (PORCINE) 5000UNITS/ML 1ML VIAL/SYRINGE SC SCH (21:09)
[2021-01-03] MEDS: SLF 3 ML SYR IV SCH (21:09)
[2021-01-03] MEDS ORDERED: HEPARIN SOD (PORCINE) 5000UNITS/ML 1ML VIAL/SYRINGE SC SCH (22:00)
[2021-01-04] MEDS: CEPHALEXIN 500 MG CAP PO SCH ×3 (00:09→11:44)
[2021-01-04 00:10] VITALS: BP 127/89
[2021-01-04] MEDS: PERCOCET 5MG/325MG TAB PO PRN ×3 (00:16→13:55)
[2021-01-04 04:05] VITALS: BP 137/73
[2021-01-04 05:46] LABS: HEMATOCRIT 32.6 % (42.0-52.0); HEMOGLOBIN 11.1 g/dl (13.5-17.5); MEAN CORPUSCULAR VOLUME 102.8 fl (80.0-96.0); RED BLOOD COUNT 3.17 10^6/uL (4.30-6.10); WHITE BLOOD COUNT 4.7 10^3/uL (4.0-10.0)
[2021-01-04 05:47] LABS: PLATELET COUNT, AUTOMATED 61 10^3/uL (150-450)
[2021-01-04] MEDS: SLF 3 ML SYR IV SCH (05:55)
[2021-01-04 06:15] LABS: ALT/SGPT 22 U/L (12-78); BILIRUBIN,TOTAL 5.2 MG/DL (0.2-1.0); BLOOD UREA NITROGEN 19 MG/DL (7-18); CALCIUM LEVEL 8.3 MG/DL (8.8-10.2); CARBON DIOXIDE LEVEL 32 MEQ/L (21-32); CHLORIDE LEVEL 98 MEQ/L (98-107); GLOMERULAR FILTRATION RATE > 60.0 (>49); GLUCOSE, FASTING 106 MG/DL (70-100); MAGNESIUM LEVEL 2.2 MG/DL (1.8-2.4); POTASSIUM SERUM 3.2 MEQ/L (3.5-5.1); SODIUM LEVEL 137 MEQ/L (136-145); TOTAL PROTEIN 6.2 GM/DL (6.4-8.2)
[2021-01-04] MEDS: FLUTICASONE HFA 110 MCG 12 GM INHALER (FLOVENT) INH SCH (07:08)
[2021-01-04 07:32] VITALS: BP 121/69
--- NOTE | 2021-01-04 08:00 | RO ---
OPERATIVE NOTE DATE OF OPERATION: 01/03/2021 PREOPERATIVE DIAGNOSIS: Postprocedure pneumothorax. POSTOPERATIVE DIAGNOSIS: Postprocedure pneumothorax. PROCEDURE: Chest tube. SURGEON: Love Reece MD INDICATION: Pneumothorax. Consent was obtained from the patient prior to the procedure. Indications, risks and benefits were explained at length. DESCRIPTION OF PROCEDURE: Time out was performed prior to the procedure. After the chest x-ray was reviewed the appropriate side was confirmed and marked using chest x-ray and ultrasound. Full sterile technique was maintained throughout the procedure including surgical cap, mask, protective eyewear, sterile gown and sterile gloves. The patient was prepped and draped in sterile manner using Chlorhexidine scrub after the patient was positioned in usual fashion. Total of 5 mL of 1% Lidocaine was used to anesthetize the skin, subcutaneous tissues, superior aspect of right periosteum and parietal pleura. An introducer needle was inserted in the second intercostal space in midclavicular line with aspiration of air. A guidewire was placed through the introducer needle. The introducer needle was removed over the guidewire and incision was made with scalpel parallel to the rib. Dilator was placed over the guidewire. After appropriate dilation was obtained the trocar with the 14-Syriac chest tube was used to introduce the chest tube into the pleural cavity space. The trocar and wire were removed and chest tube was placed and connected securely to Pleur-evac. Upon immediate connection there was noted air leak and bubbling on the Pleur-evac. The chest tube was then sutured in place to the skin at the insertion site. Sterile occlusive dressing was placed over the insertion site. No immediate complications were noted. Postprocedure chest x-ray showed reexpansion of the right lung and satisfactory position of the right-sided chest tube. ESTIMATED BLOOD LOSS: Less than 2 mL. MTDD
[2021-01-04] MEDS ORDERED: SPIRONOLACTONE 50 MG TAB PO SCH (09:00)
[2021-01-04] MEDS: HEPARIN SOD (PORCINE) 5000UNITS/ML 1ML VIAL/SYRINGE SC SCH (09:00)
[2021-01-04] MEDS ORDERED: FUROSEMIDE 40 MG TAB PO SCH (09:00)
[2021-01-04] MEDS ORDERED: POTASSIUM CHLORIDE 10% LIQ 20 MEQ/15 ML UDC PO ONE (09:00)
--- NOTE | 2021-01-04 09:04 | REP ---
INDICATION: chest tube COMPARISON: 01/03/2021. TECHNIQUE: PA/Lateral FINDINGS: Right chest tube remains in place. There is a tiny right pneumothorax. There is mild bibasilar atelectatic change with a tiny right effusion. The heart and mediastinum are unchanged. IMPRESSION: Tiny right pneumothorax. Right chest tube. Mild bibasilar atelectatic change. <Electronically signed by Eliezer Chung > 01/04/21 0946
[2021-01-04] MEDS: LACTULOSE 20 GM/30 ML SYRUP UD PO SCH (09:18)
[2021-01-04] MEDS: oxyCODONE 5MG TAB PO PRN (09:19)
[2021-01-04] MEDS: POTASSIUM CHLORIDE 10 MEQ SR TABLET PO SCH (09:20)
[2021-01-04] MEDS: PANTOPRAZOLE 40MG TAB (PROTONIX) PO SCH (09:20)
--- NOTE | 2021-01-04 11:30 | REP ---
INDICATION: pneumothorax. COMPARISON: 01/04/2021 7:41 a.m. TECHNIQUE: Single portable AP view of the chest was performed. FINDINGS: Right chest tube is again noted. No visible right pneumothorax is seen. The heart and mediastinum are unchanged. The lungs are unchanged in appearance. IMPRESSION: No visible pneumothorax. Otherwise stable. <Electronically signed by Eliezer Chung > 01/04/21 1121
[2021-01-04 11:40] VITALS: BP 109/71
[2021-01-04] MEDS ORDERED: CEPH500C PO (12:36)
--- NOTE | 2021-01-04 12:52 | DS.PDOC ---
Discharge Summary General Date of Admission January 03, 2021 at 13:43 Date of Discharge 01/04/21 Discharge Summary PROCEDURES PERFORMED DURING STAY: Right thoracentesis. Right sided chest tube placement ADMITTING DIAGNOSES: 1. Right pleural effusion 2. Right postprocedural pneumothorax 3. Cirrhosis 4. Cellulitis 5. Chronic thrombocytopenia DISCHARGE DIAGNOSES: 1. Right pleural effusion 2. Right postprocedural pneumothorax 3. Cirrhosis 4. Cellulitis 5. Chronic thrombocytopenia 6. Hypokalemia COMPLICATIONS/CHIEF COMPLAINT: Rt Pleural Effusion s/p thoracentesis with post- procedural pneumothorax HISTORY OF PRESENT ILLNESS: : Mr. Okeefe is a 61-year-old male with a past medical history of alcoholic cirrhosis with recurrent ascites and pleural effusion who presented as an outpatient for repeat thoracentesis. Patient has a history of recurrent hepatic hydrothorax with a recurrent right pleural effusion that has been requiring frequent thoracenteses as an outpatient due to symptomatic shortness of breath and dyspnea with reaccumulation. He has previously been requiring paracenteses as well in the past but more recently in the past several months has been requiring multiple thoracentesis due to the rapid reaccumulation. His last hospitalization was in November of this year, again with right pleural effusion secondary to his hepatic hydrothorax and again requiring a thoracentesis. Patient follows up with Dr. Castro as an outpatient and was seen in the end of November and scheduled for thoracentesis every 2 weeks. Patient also has been evaluated by [facility] for possibility of a liver transplant. At the time, they had not thought that he was decompensated enough to require being placed on the liver transplant list, and he was due to have a repeat followup this month, but his appointment was changed, he states now, until January or February. Patient also follows up with gastroenterology and nephrology. He is on torsemide and spironolactone for diuretics. He does also does have a history of hepatic encephalopathy, for which he is on lactulose. Patient also had been evaluated in the past by interventional radiology for possibility of transjugular intrahepatic portosystemic shunt (TIPS), but they had declined TIPS procedure at that time. Today, patient states that he had come in as scheduled for his usual thoracentesis with radiology. Of note, patient had also been complaining of pain in his left hand, where he had an intravenous (IV) placed previously with increasing erythema, swelling, and tenderness. He had been sent to the emergency department (ED) for evaluation of cellulitis, and he was given antibiotics to take at home with doxycycline. He then had his scheduled thoracentesis with removal of almost 2 liters of red-tinged pleural fluid. Post procedure, patient denied having any significant chest pain or shortness of breath. He was saturating around 94% on room air. His postprocedural chest x-ray did show a small right apical pneumothorax as well as suspected air tracking along the lateral part of the chest on the right, which may have been a pneumothorax ex vacuo. He was kept for further observation and had a repeat chest x-ray performed 2 hours later. On the repeat chest x-ray, the pneumothorax on the right had significantly increased in size with a measurement of almost 4 cm from the apex. Patient continued to remain asymptomatic throughout this as well as hemodynamically stable. Given the increasing pneumothorax, however, in particular the size, patient was consented for a chest tube for evacuation of the air. HOSPITAL COURSE: Patient had placement of 14Fr chest tube in right chest in 2nd intercostal space mid-clavicular line. Tolerated procedure well with post-procedure CXR showing re-expansion of the lung. Chest tube was kept to water-seal and repeat CXR showed small basilar pneumothorax. Overnight patient's chest tube reportedly had become disconnected but was quickly re-connected to pleurovac. Provider was not notified overnight. AM CXR showed small basilar pneumothorax. Chest tube was then clamped and a repeat CXR 2.5hrs later showed no significant pneumothorax. Patient had remained saturating well on RA and hemodynamically stable throughout his stay. He initially had mild DONITA, his diuretics were on hold and repeat showed resolution of DONITA. He did have mild hypokalemia and was repleted. 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 Patient was also started on keflex for local cellulitis on left hand from prior IV insertion. His hand this morning showed improvement in erythema, swelling and tenderness. MRSA screen was negative. He will be discharged with additional 5 days of keflex. Patient's chest tube was removed and occlusive dressing placed. He will be ordered for repeat CXR on Wednesday and results will be followed up by pulmonary. DISCHARGE MEDICATIONS: Please see below. ALLERGIES: Please see below. PHYSICAL EXAMINATION ON DISCHARGE: VITAL SIGNS: Please see below. GENERAL: Patient is a pleasant male. Is overweight. Sitting in the bed no acute distress. He is able to speak in complete sentences. He is alert and oriented times three. HEENT: Is normocephalic, atraumatic. Pupils are reactive to light bilaterally. The patient has scleral icterus noted. NECK: Supple. Trachea is midline. No palpable cervical lymphadenopathy. CARDIAC: Regular rate and rhythm. Normal S1, S2. Unable to appreciate any murmurs. LUNGS: Improved breath sounds on the right and improved with no wheezing, rales or rhonchi noted. ABDOMEN: Soft, nontender with no clear fluid wave or palpable mass. EXTREMITIES: There is no significant bilateral lower extremity edema. On the left hand on the dorsal surface the previous area of erythema and swelling appears significantly improved LABORATORY DATA: Please see below. IMAGIN01/03/21 Chest x-ray post procedure showed a small right apical pneumothorax as well as some air tracking more laterally on the right. There is very small amount of residual right pleural effusion. Repeat chest x-ray 2 hours later showed significant increase in the right pneumothorax with now air noted approximately 4 cm from the apex. Pneumothorax is also extending more inferiorly. There is a small right pleural effusion. There is mild atelectatic change of the right lung base. 01/03/21 Placement of right chest tube with resolution of right pneumothorax. 01/04/21 Tiny right pneumothorax. Right chest tube. Mild bibasilar atelectatic change. PROGNOSIS: Good ACTIVITY: No strenuous activity or heavy lifting DIET: Regular DISCHARGE PLAN: Repeat CXR on Wednesday. Follow-up results with pulmonary DISPOSITION: Home DISCHARGE INSTRUCTIONS: 1. Continue antibiotics with keflex for 5 days 2. Occlusive dressing from chest tube site in right upper chest for 48hrs. 3. Repeat CXR as outpatient on Wednesday. follow-up results with pulmonary ITEMS TO FOLLOWUP ON ON OUTPATIENT: 1. Repeat CXR DISCHARGE CONDITION: Stable TIME SPENT ON DISCHARGE: Greater than 30 minutes. Vital Signs/I&Os Vital Signs Date Time Temp Pulse Resp B/P (MAP) Pulse Ox O2 Delivery O2 Flow Rate FiO2 01/04/21 11:40 96.2 60 18 109/71 (84) 92 Room Air 01/03/21 14:00 15.0 I&O- Last 24 Hours up to 6 AM 01/04/21 06:00 Intake Total 360 ml Output Total 1425 ml Balance -1065 ml Laboratory Data Labs 24H Laboratory Tests 2 01/03/21 15:45: Immature Granulocyte % (Auto) 0.2, Neutrophils (%) (Auto) 63.1, Lymphocytes (%) (Auto) 13.3L, Monocytes (%) (Auto) 19.4H, Eosinophils (%) (Auto) 3.6H, Basophils (%) (Auto) 0.4, Neutrophils # (Auto) 3.0, Lymphocytes # (Auto) 0.6L, Monocytes # (Auto) 0.9H, Eosinophils # (Auto) 0.2, Basophils # (Auto) 0.0, Nucleated Red Blood Cells % (auto) 0.0, Immature Platelet Fraction 4.7, Prothrombin Time 18.5H, Prothromb Time International Ratio 1.51, Anion Gap 3L, Glomerular Filtration Rate 58.2, Calcium Level 8.4L 01/04/21 02:23: Methicillin-Resist S.aureus DNA PCR NOT DETECTED 01/04/21 05:14: Nucleated Red Blood Cells % (auto) 0.0, Anion Gap 7L, Glomerular Filtration Rate > 60.0, Calcium Level 8.3L, Magnesium Level 2.2, Total Bilirubin 5.2H, Aspartate Amino Transf (AST/SGOT) 42H, Alanine Aminotransferase (ALT/SGPT) 22, Alkaline Phosphatase 161H, Total Protein 6.2L, Albumin 3.0L, Albumin/Globulin Ratio 0.9 CBC/BMP Laboratory Tests 01/03/21 15:45 01/04/21 05:14 Microbiology Microbiology 01/03/21 Respiratory Virus Panel (PCR) ([facility]) - Final, Complete Discharge Medications Scheduled Cephalexin (Cephalexin) 500 Mg Capsule, 500 MG PO Q6H Fluticasone Propionate (Flovent Hfa) 44 Mcg/Act Aer.w.adap, 1 PUFF INH BID, (Reported) Furosemide (Furosemide) 40 Mg Tablet, 1 TAB PO DAILY Lactulose (Constulose) 10 Gm/15 Ml Solution, 30 ML PO DAILY Multivitamin (Multivitamins) 1 Each Tablet, 1 TAB PO DAILY, (Reported) Omeprazole (Omeprazole) 40 Mg Capsule.dr, 40 MG PO DAILY, (Reported) Potassium Chloride (Potassium Chloride) 10 Meq Tablet.er, 10 MEQ PO DAILY Spironolactone (Spironolactone) 100 Mg Tablet, 100 MG PO DAILY, (Reported) Tamsulosin Hcl (Tamsulosin HCl) 0.4 Mg Capsule, 0.4 MG PO DAILY, (Reported) Scheduled PRN Acetaminophen (Acetaminophen) 325 Mg Tablet, 650 MG PO Q6HP PRN for T > 101.5 or GÓMEZ Albuterol Sulfate (Ventolin Hfa) 18 Gm Hfa.aer.ad, 2 PUFFS INH QID PRN for SOB/WHEEZING, (Reported) Docusate Sodium (Colace) 100 Mg Capsule, 100 MG PO BID PRN for CONSTIPATION, (Reported) Allergies Coded Allergies: POLLEN (Verified Allergy, Unknown, 05/22/20) RAGHAV LOVE MD January 04, 2021 12:52
== END 2021-01-04 14:15 | disposition home or self-care (01) | DRG 200 ==
LOC: M IRPRO 07:49 → M PCU 13:43
PROVIDERS: ADMIT Internal Medicine Pulmonary Disease; ATTEND Internal Medicine Pulmonary Disease
PROC: 0W993ZZ Drainage of Right Pleural Cavity, Percutaneous Approach (ICD-10-PCS; principal; 2021-01-03 09:00)
DX: J95.811 Postprocedural pneumothorax (principal); J90 Pleural effusion, not elsewhere classified; L03.114 Cellulitis of left upper limb; E87.6 Hypokalemia; D69.6 Thrombocytopenia, unspecified; K70.31 Alcoholic cirrhosis of liver with ascites; Z79.899 Other long term (current) drug therapy; J45.909 Unspecified asthma, uncomplicated; E66.9 Obesity, unspecified; M19.90 Unspecified osteoarthritis, unspecified site; I10 Essential (primary) hypertension; Z96.651 Presence of right artificial knee joint; N40.0 Benign prostatic hyperplasia without lower urinary tract symptoms

== ENCOUNTER 2021-01-03 08:25 | Emergency (ER) | payer MEDICARE, OTHER ==
[~2021-01-03] VITALS: Ht 177.8 cm; Wt 101.4 kg
[2021-01-03 08:27] VITALS: BP 95/58
[2021-01-03] MEDS ORDERED: DOXYCYCLINE HYCLATE 100MG TABLET PO ONE (09:00)
[2021-01-03] MEDS ORDERED: DOXY100C37 PO (09:02)
[2021-01-04] MEDS ORDERED: CEPH500C PO (12:36)
== END 2021-01-03 09:37 | disposition home or self-care (01) ==
LOC: M ED 08:25
DX: L03.114 Cellulitis of left upper limb (principal); K21.9 Gastro-esophageal reflux disease without esophagitis; K74.60 Unspecified cirrhosis of liver; F12.10 Cannabis abuse, uncomplicated

== ENCOUNTER 2021-01-07 08:22 | Outpatient (CLI) | payer MEDICARE, OTHER ==
[~2021-01-07] VITALS: Ht 177.8 cm; Wt 102.5 kg
[~2021-01-07 08:22] MED LIST changes: +DOXY100C37 PO; -DOXY1CAP62 PO
[2021-01-07 08:45] VITALS: BP 125/67
[2021-01-07 11:46] VITALS: BP 110/67
== END 2021-01-07 11:45 | disposition home or self-care (01) ==
LOC: M INFU 08:22
PROVIDERS: ATTEND Family Medicine
DX: K72.90 Hepatic failure, unspecified without coma (principal)
CPT/HCPCS: 36415; 36430; 82040; P9047

== ENCOUNTER → 2021-01-07 | Outpatient (CLI) | payer MEDICARE, OTHER ==
[~2021-01-07] MED LIST changes: +CEPH500C PO; +DOXY1CAP62 PO
--- NOTE | 2021-01-07 13:59 | REP ---
INDICATION: PLEURL EFFUSION, POST PROCEDURE PTX. COMPARISON: Comparison chest x-ray January 04, 2021. TECHNIQUE: PA and lateral views... FINDINGS: There is a moderate size right-sided pneumothorax. An air-fluid level is seen in the right base indicating hydrothorax as well. The lateral view shows pleural air posterior to the long on the right side in addition to superior and lateral. There is no midline shift. The left lung is well inflated and clear. The left pleural angles are sharp. Heart is not enlarged. In the interval since the 04 Jan 2021 study, the right pleural drainage catheter has been removed. IMPRESSION: Moderate-size right-sided hydropneumothorax.. <Electronically signed by Sunny Stoner > 01/07/21 [id number]
== END ==
LOC: M RAD 11:28
PROVIDERS: ATTEND Thoracic Surgery (Cardiothoracic Vascular Surgery)
DX: J90 Pleural effusion, not elsewhere classified (principal)

== ENCOUNTER → 2021-01-13 | Outpatient (CLI) | payer MEDICARE, OTHER ==
[~2021-01-13] MED LIST changes: -DOXY100C37 PO; +DOXY1CAP62 PO
--- NOTE | 2021-01-13 12:03 | REPPI ---
INDICATION: J90 PLEURAL EFFUSION K70.31 ALCOHOLIC CIRRHOSIS OF LIVER COMPARISON: 01/07/2021 TECHNIQUE: PA and lateral. FINDINGS: Right-sided hydropneumothorax essentially unchanged from prior examination. Cardiac silhouette is normal/stable. Left hemithorax is clear. Skeletal structures are intact. IMPRESSION: Significant right-sided hydropneumothorax unchanged. No new acute process identified. <Electronically signed by Jose Qureshi > 01/13/21 1200
== END ==
LOC: M PLAIMG 09:38
PROVIDERS: ATTEND Thoracic Surgery (Cardiothoracic Vascular Surgery)
DX: J90 Pleural effusion, not elsewhere classified (principal); K70.31 Alcoholic cirrhosis of liver with ascites

== ENCOUNTER 2021-01-14 09:10 | Outpatient (CLI) | payer MEDICARE ==
[~2021-01-14] VITALS: Ht 177.8 cm; Wt 98.5 kg
[~2021-01-14 09:10] MED LIST changes: +DOXY100C37 PO; -DOXY1CAP62 PO
[2021-01-14 09:27] VITALS: BP 107/58
[2021-01-14 10:31] VITALS: BP 107/58
[2021-01-14 12:35] VITALS: BP 124/76
== END 2021-01-14 12:50 | disposition home or self-care (01) ==
LOC: M INFU 09:10
PROVIDERS: ATTEND Family Medicine
DX: K72.90 Hepatic failure, unspecified without coma (principal)
CPT/HCPCS: 36415; 36430; 82040; P9047

== ENCOUNTER 2021-01-21 12:43 | Outpatient (CLI) | payer MEDICARE ==
[~2021-01-21] VITALS: Ht 177.8 cm; Wt 102.5 kg
[2021-01-21 13:10] VITALS: BP 123/63
[2021-01-21 14:48] VITALS: BP 98/53
[2021-01-21 16:56] VITALS: BP 124/73
== END 2021-01-21 16:50 | disposition home or self-care (01) ==
LOC: M INFU 12:43
PROVIDERS: ATTEND Family Medicine
DX: K72.90 Hepatic failure, unspecified without coma (principal)
CPT/HCPCS: 36415; 36430; 82040; P9047

== ENCOUNTER 2021-01-28 12:17 | Outpatient (CLI) | payer MEDICARE ==
[~2021-01-28] VITALS: Ht 177.8 cm; Wt 102.5 kg
[2021-01-28 14:20] VITALS: BP 118/55
[2021-01-28 14:50] VITALS: BP 126/84
[2021-01-28 15:32] VITALS: BP 122/76
[2021-01-28 16:00] VITALS: BP 109/75
[2021-01-28 16:30] VITALS: BP 120/84
== END 2021-01-28 16:30 | disposition home or self-care (01) ==
LOC: M INFU 12:17
PROVIDERS: ATTEND Family Medicine
DX: K72.90 Hepatic failure, unspecified without coma (principal)
CPT/HCPCS: 36430; 36592; 82040; 96365; 96366; P9047

== ENCOUNTER → 2021-01-31 | Outpatient (CLI) | payer MEDICARE ==
[~2021-01-31] MED LIST changes: +LIDOCAINE 1% MDV 20ML VIAL As Ordered ONE; +SODIUM BICARBONATE 8.4% INJ 50MEQ 50 ML VIAL As Ordered ONE
--- NOTE | 2021-01-31 10:04 | REP ---
INDICATION: POST RIGHT THORA, 2 VIEW. COMPARISON: 01/13/2021. TECHNIQUE: Two views chest. FINDINGS: There is no pneumothorax status post right thoracentesis. Previously noted pleural fluid has decreased. There is mild right base parenchymal scarring. The heart is normal in size. There is mild calcification of the thoracic aorta. The mediastinal silhouette is unchanged. There are degenerative changes of the spine. IMPRESSION: No pneumothorax status post right thoracentesis. <Electronically signed by Eliezer Chung > 01/31/21 1000
[2021-01-31 11:45] VITALS: BP 124/72
--- NOTE | 2021-01-31 18:36 | REP ---
INDICATION: RT PLEURAL EFFUSION The patient has a history of right sided pleural effusion COMPARISON: None. TECHNIQUE: The procedure was performed by Betzaida Starkey [facility], under the direct supervision of Dr. Chung The risks and benefits of the procedure were explained to the patient and an informed consent was obtained both verbally and written. Directly prior to the start of the procedure a formal time-out was completed in the procedure room. Pleural fluid in right lung zone was localized using ultrasound guidance. The skin was prepped and draped in a sterile fashion. Ten ML of buffered lidocaine was used as a local anesthetic. Using ultrasound guidance an 8-Thai multi side-hole catheter was inserted using trocar technique. FINDINGS: Six hundred five mL of silvia colored fluid was withdrawn and discarded. The patient tolerated the procedure well and there were no immediate complications. After the appropriate amount of monitored convalescence, the patient was discharged from the department. IMPRESSION: Ultrasound-guided thoracentesis with removal of 605 mL of silvia colored pleural fluid. <Electronically signed by Betzaida Starkey > 01/31/21 1248 <Electronically signed by Eliezer Chung > 01/31/21 [id number]
== END ==
LOC: M IRPRO 09:01
PROVIDERS: ATTEND Thoracic Surgery (Cardiothoracic Vascular Surgery)
DX: J90 Pleural effusion, not elsewhere classified (principal)

== ENCOUNTER 2021-02-04 11:31 | Outpatient (CLI) | payer MEDICARE ==
[~2021-02-04] VITALS: Ht 177.8 cm; Wt 102.5 kg
[~2021-02-04 11:31] MED LIST changes: -LIDOCAINE 1% MDV 20ML VIAL As Ordered ONE; -SODIUM BICARBONATE 8.4% INJ 50MEQ 50 ML VIAL As Ordered ONE
[2021-02-04 13:06] VITALS: BP 108/58
[2021-02-04 13:47] VITALS: BP 128/78
[2021-02-04 15:07] VITALS: BP 98/55
== END 2021-02-04 15:50 | disposition home or self-care (01) ==
LOC: M INFU 11:31
PROVIDERS: ATTEND Family Medicine
DX: K72.90 Hepatic failure, unspecified without coma (principal)
CPT/HCPCS: 36430; 36592; 82040; P9047

== ENCOUNTER → 2021-02-10 | Outpatient (CLI) | payer MEDICARE ==
[~2021-02-10] MED LIST changes: -DOXY100C37 PO; +DOXY1CAP62 PO
--- NOTE | 2021-02-10 10:17 | REPPI ---
INDICATION: J90 PLEURAL EFFUSION K70.31 ALCOHOLIC CIRRHOSIS. COMPARISON: Multiple the latest 01/31/2021 TECHNIQUE: PA and lateral FINDINGS: The cardiomediastinal silhouette is unchanged. The heart is not enlarged. There are bibasilar opacities consistent with fibrotic changes status quo. There is unchanged chronic right CP angle blunting. No new abnormal patchy parenchymal opacities or pleural effusions have developed. There is no change in the osseous structures. IMPRESSION: There is no acute cardiopulmonary disease. Findings as described above <Electronically signed by Aris Hassan > 02/10/21 1019
== END ==
LOC: M PLAIMG 08:35
PROVIDERS: ATTEND Thoracic Surgery (Cardiothoracic Vascular Surgery)
DX: J90 Pleural effusion, not elsewhere classified (principal); K70.31 Alcoholic cirrhosis of liver with ascites

== ENCOUNTER 2021-02-12 08:25 | Outpatient (CLI) | payer MEDICARE ==
[~2021-02-12] VITALS: Ht 177.8 cm; Wt 102.5 kg
[2021-02-12 08:40] VITALS: BP 122/71
[2021-02-12 09:49] VITALS: BP 122/71
[2021-02-12 11:00] VITALS: BP 108/75
[2021-02-12 12:00] VITALS: BP 120/77
[2021-02-12 12:05] VITALS: BP 120/77
== END 2021-02-12 12:05 | disposition home or self-care (01) ==
LOC: M INFU 08:25
PROVIDERS: ATTEND Family Medicine
DX: K72.90 Hepatic failure, unspecified without coma (principal)
CPT/HCPCS: 36592; 82040; 96365; P9047

== ENCOUNTER 2021-02-18 12:10 | Outpatient (CLI) | payer MEDICARE ==
[~2021-02-18] VITALS: Ht 177.8 cm; Wt 102.5 kg
[~2021-02-18 12:10] MED LIST changes: +DOK1CAP4 PO; -DOK1CAP7 PO
[2021-02-18 12:36] VITALS: BP 133/65
[2021-02-18 12:56] VITALS: BP 133/65
[2021-02-18 14:45] VITALS: BP 113/74
[2021-02-18 15:15] VITALS: BP 120/79
[2021-02-18 16:10] VITALS: BP 134/78
[2021-02-18 16:22] VITALS: BP 134/78
== END 2021-02-18 16:20 | disposition home or self-care (01) ==
LOC: M INFU 12:10
PROVIDERS: ATTEND Family Medicine
DX: K72.90 Hepatic failure, unspecified without coma (principal)
CPT/HCPCS: 36592; 82040; 96365; 96366; P9047

== ENCOUNTER 2021-02-25 12:21 | Outpatient (CLI) | payer MEDICARE, OTHER ==
[~2021-02-25] VITALS: Ht 177.8 cm; Wt 101.2 kg
[~2021-02-25 12:21] MED LIST changes: -DOK1CAP4 PO; +DOK1CAP7 PO
[2021-02-25 12:25] VITALS: BP 89/51
[2021-02-25 14:21] VITALS: BP 93/61
[2021-02-25 14:59] VITALS: BP 94/53
[2021-02-25 16:00] VITALS: BP 97/54
== END 2021-02-25 16:00 | disposition home or self-care (01) ==
LOC: M INFU 12:21
PROVIDERS: ATTEND Family Medicine
DX: K72.90 Hepatic failure, unspecified without coma (principal)
CPT/HCPCS: 36415; 82040; 96365; 96366; P9047

== ENCOUNTER → 2021-03-13 | Outpatient (CLI) | payer MEDICARE ==
--- NOTE | 2021-03-13 09:33 | REP ---
INDICATION: PLEURAL EFFUSION, NOT ELSEWHERE CLASSIFIED. COMPARISON: Comparison chest x-ray January 31, 2021. TECHNIQUE: Two views.. FINDINGS: The lungs are well inflated and free of infiltrate. The pleural angles are sharp. The heart size is normal. Pulmonary vasculature is not increased. No significant bony abnormality is seen. There are degenerative changes in the thoracic spine. IMPRESSION: No active disease.. <Electronically signed by Sunny Stoner > 03/13/21 0999
== END ==
LOC: M PLAIMG 08:59
PROVIDERS: ATTEND Thoracic Surgery (Cardiothoracic Vascular Surgery)
DX: J90 Pleural effusion, not elsewhere classified (principal)

== ENCOUNTER 2021-03-25 11:26 | Outpatient (CLI) | payer MEDICARE ==
[~2021-03-25] VITALS: Ht 177.8 cm; Wt 101.0 kg
[2021-03-25 11:46] VITALS: BP 132/74
[2021-03-25 12:54] VITALS: BP 132/74
[2021-03-25 15:15] VITALS: BP 131/74
[2021-03-25 15:29] VITALS: BP 131/74
== END 2021-03-25 15:25 | disposition home or self-care (01) ==
LOC: M INFU 11:26
PROVIDERS: ATTEND Student in an Organized Health Care Education/Training Program
DX: K72.90 Hepatic failure, unspecified without coma (principal)
CPT/HCPCS: 36592; 82040; 96365; 96366; P9047

== ENCOUNTER 2021-04-01 11:20 | Outpatient (CLI) | payer MEDICARE ==
[~2021-04-01] VITALS: Ht 177.8 cm; Wt 100.0 kg
[~2021-04-01 11:20] MED LIST changes: +DOK1CAP4 PO; -DOK1CAP7 PO
[2021-04-01 11:35] VITALS: BP 117/65
== END 2021-04-01 15:10 | disposition home or self-care (01) ==
LOC: M INFU 11:20
PROVIDERS: ATTEND Student in an Organized Health Care Education/Training Program
DX: K72.90 Hepatic failure, unspecified without coma (principal)
CPT/HCPCS: 36592; 82040; 96365; P9047

== ENCOUNTER 2021-04-08 11:07 | Outpatient (CLI) | payer MEDICARE ==
[~2021-04-08] VITALS: Ht 177.8 cm; Wt 100.0 kg
[2021-04-08 11:33] VITALS: BP 119/74
[2021-04-08 12:13] VITALS: BP 119/74
[2021-04-08 13:18] VITALS: BP 119/60
[2021-04-08 14:28] VITALS: BP 148/85
== END 2021-04-08 14:30 | disposition home or self-care (01) ==
LOC: M INFU 11:07
PROVIDERS: ATTEND Student in an Organized Health Care Education/Training Program
DX: K72.90 Hepatic failure, unspecified without coma (principal)
CPT/HCPCS: 36592; 82040; 96365; P9047

== ENCOUNTER 2021-04-15 10:49 | Outpatient (CLI) | payer MEDICARE ==
[~2021-04-15] VITALS: Ht 177.8 cm; Wt 100.0 kg
[~2021-04-15 10:49] MED LIST changes: +DOXY-443 PO; -DOXY1CAP62 PO
[2021-04-15 10:50] VITALS: BP 140/76
[2021-04-15 12:06] VITALS: BP 140/76
[2021-04-15 13:10] VITALS: BP 119/65
[2021-04-15 14:05] VITALS: BP 120/74
[2021-04-15 14:10] VITALS: BP 120/74
== END 2021-04-15 14:10 | disposition home or self-care (01) ==
LOC: M INFU 10:49
PROVIDERS: ATTEND Student in an Organized Health Care Education/Training Program
DX: K72.90 Hepatic failure, unspecified without coma (principal)
CPT/HCPCS: 36592; 82040; 96365; 96366; P9047

== ENCOUNTER 2021-04-22 10:16 | Outpatient (CLI) | payer MEDICARE ==
[~2021-04-22] VITALS: Ht 177.8 cm; Wt 100.0 kg
[~2021-04-22 10:16] MED LIST changes: -DOXY-443 PO; +DOXY1CAP62 PO
[2021-04-22 10:35] VITALS: BP 119/70
[2021-04-22 11:51] VITALS: BP 119/70
[2021-04-22 12:30] VITALS: BP 111/63
[2021-04-22 13:00] VITALS: BP 112/60
[2021-04-22 13:58] VITALS: BP 125/71
== END 2021-04-22 13:55 | disposition home or self-care (01) ==
LOC: M INFU 10:16
PROVIDERS: ATTEND Student in an Organized Health Care Education/Training Program
DX: K72.90 Hepatic failure, unspecified without coma (principal)
CPT/HCPCS: 36592; 82040; 96365; 96366; P9047

== ENCOUNTER 2021-04-29 12:31 | Outpatient (CLI) | payer MEDICARE ==
[~2021-04-29] VITALS: Ht 177.8 cm; Wt 100.0 kg
[~2021-04-29 12:31] MED LIST changes: +DOXY-443 PO; -DOXY1CAP62 PO
[2021-04-29 12:51] VITALS: BP 125/68
[2021-04-29 13:41] VITALS: BP 125/68
[2021-04-29 15:00] VITALS: BP 114/68
[2021-04-29 16:00] VITALS: BP 118/71
== END 2021-04-29 16:05 | disposition home or self-care (01) ==
LOC: M INFU 12:31
PROVIDERS: ATTEND Student in an Organized Health Care Education/Training Program
DX: K72.90 Hepatic failure, unspecified without coma (principal)
CPT/HCPCS: 82040; 96365; 96366; P9047

== ENCOUNTER 2021-05-06 10:54 | Outpatient (CLI) | payer MEDICARE ==
[~2021-05-06] VITALS: Ht 177.8 cm; Wt 100.0 kg
[~2021-05-06 10:54] MED LIST changes: -DOXY-443 PO; +DOXY1CAP62 PO
[2021-05-06 11:45] VITALS: BP 131/74
[2021-05-06 12:54] VITALS: BP 118/79
[2021-05-06 13:00] VITALS: BP 118/76
[2021-05-06 13:32] VITALS: BP 122/66
[2021-05-06 14:04] VITALS: BP 140/77
== END 2021-05-06 14:40 | disposition home or self-care (01) ==
LOC: M INFU 10:54
PROVIDERS: ATTEND Student in an Organized Health Care Education/Training Program
DX: K72.90 Hepatic failure, unspecified without coma (principal)
CPT/HCPCS: 36592; 82040; 96365; 96366; P9047

== ENCOUNTER 2021-05-13 11:15 | Outpatient (CLI) | payer MEDICARE ==
[~2021-05-13] VITALS: Ht 177.8 cm; Wt 100.0 kg
[2021-05-13 11:32] VITALS: BP 129/84
[2021-05-13 12:36] VITALS: BP 129/84
[2021-05-13 13:30] VITALS: BP 117/76
[2021-05-13 14:40] VITALS: BP 117/76
== END 2021-05-13 14:40 | disposition home or self-care (01) ==
LOC: M INFU 11:15
PROVIDERS: ATTEND Student in an Organized Health Care Education/Training Program
DX: K72.90 Hepatic failure, unspecified without coma (principal)
CPT/HCPCS: 36592; 82040; 96365; 96366; P9047

== ENCOUNTER 2021-05-20 11:36 | Outpatient (CLI) | payer MEDICARE ==
[~2021-05-20] VITALS: Ht 177.8 cm; Wt 100.0 kg
[2021-05-20 12:21] VITALS: BP 123/61
[2021-05-20 12:57] VITALS: BP 123/61
[2021-05-20 15:01] VITALS: BP 112/66
[2021-05-20 15:30] VITALS: BP 126/72
== END 2021-05-20 15:30 | disposition home or self-care (01) ==
LOC: M INFU 11:36
PROVIDERS: ATTEND Student in an Organized Health Care Education/Training Program
DX: K72.90 Hepatic failure, unspecified without coma (principal)
CPT/HCPCS: 36592; 82040; 96365; 96366; P9047

== ENCOUNTER 2021-05-27 11:21 | Outpatient (CLI) | payer MEDICARE ==
[~2021-05-27] VITALS: Ht 177.8 cm; Wt 100.0 kg
[2021-05-27 12:14] VITALS: BP 98/55
[2021-05-27 13:00] VITALS: BP 98/55
[2021-05-27 15:00] VITALS: BP 106/61
== END 2021-05-27 15:10 | disposition home or self-care (01) ==
LOC: M INFU 11:21
PROVIDERS: ATTEND Student in an Organized Health Care Education/Training Program
DX: K72.90 Hepatic failure, unspecified without coma (principal)
CPT/HCPCS: 36592; 82040; 96365; 96366; P9047

== ENCOUNTER 2021-06-03 10:59 | Outpatient (CLI) | payer MEDICARE ==
[~2021-06-03] VITALS: Ht 177.8 cm; Wt 100.0 kg
[2021-06-03 11:29] VITALS: BP 127/77
[2021-06-03 12:06] VITALS: BP 127/77
[2021-06-03 14:30] VITALS: BP 112/67
== END 2021-06-03 14:30 | disposition home or self-care (01) ==
LOC: M INFU 10:59
PROVIDERS: ATTEND Student in an Organized Health Care Education/Training Program
DX: K72.90 Hepatic failure, unspecified without coma (principal)
CPT/HCPCS: 82040; 96365; 96366; P9047

== ENCOUNTER 2021-06-10 10:49 | Outpatient (CLI) | payer MEDICARE ==
[~2021-06-10 10:49] MED LIST changes: +DOXY-443 PO; -DOXY1CAP62 PO
[2021-06-10 12:24] VITALS: BP 120/64
[2021-06-10 14:30] VITALS: BP 145/82
== END 2021-06-10 14:45 | disposition home or self-care (01) ==
LOC: M INFU 10:49
PROVIDERS: ATTEND Student in an Organized Health Care Education/Training Program
DX: K72.90 Hepatic failure, unspecified without coma (principal)
CPT/HCPCS: 36592; 82040; 96365; 96366; P9047

== ENCOUNTER → 2021-06-24 | Outpatient (REF) | payer MEDICARE ==
[2021-06-24 18:16] LABS: MAGNESIUM LEVEL 2.2 MG/DL (1.8-2.4); PERCENT SATURATION 21.9 % (19.7-50.0)
== END ==
LOC: M LAB REF 17:10
PROVIDERS: ATTEND Internal Medicine Nephrology
DX: D50.9 Iron deficiency anemia, unspecified (principal); E83.42 Hypomagnesemia; N18.31 Chronic kidney disease, stage 3a

== ENCOUNTER 2021-08-11 09:38 | Inpatient (IN) | payer MEDICARE ==
[~2021-08-11] VITALS: Ht 177.8 cm; Wt 102.3 kg
[~2021-08-11 09:38] MED LIST changes: +LOSA100T45 PO; -LOSA100T50 PO; +LOSA25TA13 PO; -LOSA25TA14 PO; -MONT10TA10 PO; +MONT10TA97 PO; -OMEP-221 PO; +OMEP40CA5 PO
[2021-08-11] MEDS ORDERED: TORS10TA3 PO (09:58)
[2021-08-11] MEDS ORDERED: ALBUTEROL SULFATE 2.5 MG/0.5 ML INH NEB SOLN INH ONE (10:20)
[2021-08-11] MEDS ORDERED: methylPREDNISolone 125MG 2ML VIAL IV ONE (10:20)
[2021-08-11] MEDS ORDERED: IPRATROPIUM 0.5MG/ALBUTEROL 2.5MG INH SOL UD 3ML (DUONEB) NEB ONE ×2 (10:20→22:00)
[2021-08-11 12:08] LABS: BASO % 0.5 % (0.0-1.0); EOS # 0.1 10^3/uL (0.0-0.5); HEMATOCRIT 31.9 % (42.0-52.0); HEMOGLOBIN 10.8 g/dl (13.5-17.5); LYMPH % 17.2 % (24.0-44.0); MEAN CORPUSCULAR HGB CONC 33.9 g/dl (32.0-36.5); MEAN CORPUSCULAR VOLUME 97.6 fl (80.0-96.0); MONO # 0.9 10^3/uL (0.0-0.8); MONO % 16.3 % (2.0-8.0); NEUTROPHILS # 3.6 10^3/uL (1.5-8.5); NEUTROPHILS % 63.6 % (36.0-66.0); RED BLOOD COUNT 3.27 10^6/uL (4.30-6.10); WHITE BLOOD COUNT 5.6 10^3/uL (4.0-10.0)
[2021-08-11 12:09] LABS: RSV AMPLIFICATION NEGATIVE (NEGATIVE)
[2021-08-11 12:13] LABS: PLATELET COUNT, AUTOMATED 66 10^3/uL (150-450)
[2021-08-11 12:16] LABS: INR 1.61; PROTHROMBIN TIME 19.5 SECONDS (12.7-14.5)
[2021-08-11 12:17] LABS: PARTIAL THROMBOPLASTIN TIME 38.4 SECONDS (25.9-37.0)
[2021-08-11 12:57] LABS: ALBUMIN 2.1 GM/DL (3.2-5.2); BILIRUBIN,TOTAL 9.4 MG/DL (0.2-1.0); CALCIUM LEVEL 8.4 MG/DL (8.8-10.2); CREATININE FOR GFR 1.52 MG/DL (0.70-1.30); GLOMERULAR FILTRATION RATE 49.9 (>49); POTASSIUM SERUM 2.6 MEQ/L (3.5-5.1); THYROID STIMULATING HORMONE 1.92 uIU/ML (0.358-3.740); THYROXINE (T4) 6.9 UG/DL (4.5-12.0); TOTAL PROTEIN 6.2 GM/DL (6.4-8.2)
[2021-08-11] MEDS ORDERED: KCL 10MEQ/100ML SWI (KRUN) 10 MEQ in IV 1 EA IV ONE (13:20)
[2021-08-11] MEDS ORDERED: POTASSIUM CHLORIDE 10MEQ SR TABLET PO ONE (13:20)
[2021-08-11] MEDS ORDERED: ISOVUE-370 76% 100ML VIAL As Ordered ONE (13:26)
[2021-08-11 13:39] LABS: MAGNESIUM LEVEL 1.8 MG/DL (1.8-2.4)
[2021-08-11] MEDS ORDERED: HOME MED LIST COMPLETE! XX SCH (15:20)
[2021-08-11 17:17] LABS: BASO % 0.3 % (0.0-1.0); HEMATOCRIT 30.3 % (42.0-52.0); HEMOGLOBIN 10.5 g/dl (13.5-17.5); LYMPH # 0.2 10^3/uL (1.5-5.0); LYMPH % 6.2 % (24.0-44.0); MEAN CORPUSCULAR HEMOGLOBIN 33.9 pg (27.0-33.0); MEAN CORPUSCULAR HGB CONC 34.7 g/dl (32.0-36.5); MEAN CORPUSCULAR VOLUME 97.7 fl (80.0-96.0); MONO # 0.1 10^3/uL (0.0-0.8); MONO % 2.7 % (2.0-8.0); NEUTROPHILS # 3.3 10^3/uL (1.5-8.5); WHITE BLOOD COUNT 3.7 10^3/uL (4.0-10.0)
[2021-08-11 17:20] LABS: PLATELET COUNT, AUTOMATED 64 10^3/uL (150-450)
[2021-08-11 17:52] LABS: CALCIUM LEVEL 8.5 MG/DL (8.8-10.2); CREATININE FOR GFR 1.66 MG/DL (0.70-1.30); GLOMERULAR FILTRATION RATE 45.1 (>49); POTASSIUM SERUM 3.2 MEQ/L (3.5-5.1)
[2021-08-11] MEDS ORDERED: HEPARIN DRIP 25,000 UNITS in IV 1 EA IV SCH (18:05)
[2021-08-11] MEDS ORDERED: HEPARIN SOD (PORCINE) 5000UNITS/ML 1ML VIAL/SYRINGE IV ONE (18:05)
[2021-08-11] MEDS ORDERED: NS 1,000 ML IV ONE (19:30)
[2021-08-11] MEDS: HEPARIN DRIP 25,000 UNITS in IV 1 EA IV SCH ×2 (19:44→23:53)
[2021-08-11 21:38] LABS: HEMATOCRIT 28.7 % (42.0-52.0); HEMOGLOBIN 9.8 g/dl (13.5-17.5); LYMPH # 0.4 10^3/uL (1.5-5.0); LYMPH % 9.7 % (24.0-44.0); MEAN CORPUSCULAR HEMOGLOBIN 33.6 pg (27.0-33.0); MEAN CORPUSCULAR HGB CONC 34.1 g/dl (32.0-36.5); MEAN CORPUSCULAR VOLUME 98.3 fl (80.0-96.0); MONO # 0.1 10^3/uL (0.0-0.8); MONO % 2.8 % (2.0-8.0); NEUTROPHILS # 3.2 10^3/uL (1.5-8.5); NEUTROPHILS % 86.9 % (36.0-66.0); RED BLOOD COUNT 2.92 10^6/uL (4.30-6.10); WHITE BLOOD COUNT 3.6 10^3/uL (4.0-10.0)
[2021-08-11 21:43] LABS: PLATELET COUNT, AUTOMATED 97 10^3/uL (150-450)
[2021-08-11] MEDS ORDERED: PERCOCET 5MG/325MG TAB PO ONE (22:00)
[2021-08-11] MEDS ORDERED: PANTOPRAZOLE 40MG VIAL (C9113 PER 1) IV ONE (23:35)
[2021-08-11 23:52] LABS: HEMATOCRIT 31.4 % (42.0-52.0); HEMOGLOBIN 10.6 g/dl (13.5-17.5); LYMPH # 0.4 10^3/uL (1.5-5.0); LYMPH % 9.2 % (24.0-44.0); MEAN CORPUSCULAR HEMOGLOBIN 33.4 pg (27.0-33.0); MEAN CORPUSCULAR HGB CONC 33.8 g/dl (32.0-36.5); MEAN CORPUSCULAR VOLUME 99.1 fl (80.0-96.0); MONO # 0.1 10^3/uL (0.0-0.8); MONO % 2.9 % (2.0-8.0); NEUTROPHILS # 3.3 10^3/uL (1.5-8.5); NEUTROPHILS % 87.4 % (36.0-66.0); RED BLOOD COUNT 3.17 10^6/uL (4.30-6.10); WHITE BLOOD COUNT 3.8 10^3/uL (4.0-10.0)
[2021-08-12 00:02] LABS: PLATELET COUNT, AUTOMATED 60 10^3/uL (150-450)
[2021-08-12 06:55] LABS: HEMATOCRIT 29.7 % (42.0-52.0); LYMPH # 0.5 10^3/uL (1.5-5.0); LYMPH % 7.4 % (24.0-44.0); MEAN CORPUSCULAR HEMOGLOBIN 33.2 pg (27.0-33.0); MEAN CORPUSCULAR HGB CONC 33.7 g/dl (32.0-36.5); MEAN CORPUSCULAR VOLUME 98.7 fl (80.0-96.0); MONO # 0.5 10^3/uL (0.0-0.8); MONO % 6.5 % (2.0-8.0); NEUTROPHILS % 85.5 % (36.0-66.0); PLATELET COUNT, AUTOMATED 61 10^3/uL (150-450); RED BLOOD COUNT 3.01 10^6/uL (4.30-6.10); WHITE BLOOD COUNT 7.1 10^3/uL (4.0-10.0)
[2021-08-12 07:57] LABS: ALBUMIN 1.9 GM/DL (3.2-5.2); BILIRUBIN,TOTAL 7.6 MG/DL (0.2-1.0); CALCIUM LEVEL 8.4 MG/DL (8.8-10.2); CREATININE FOR GFR 1.93 MG/DL (0.70-1.30); GLOMERULAR FILTRATION RATE 37.9 (>49)
[2021-08-12] MEDS: MULTIVITAMINS/MINERALS THERAP 1 TAB PO SCH (09:00)
[2021-08-12] MEDS ORDERED: FUROSEMIDE 40MG/4ML VIAL (J1940) IV SCH (09:00)
[2021-08-12] MEDS: methylPREDNISolone 40MG 1ML VIAL IV SCH (09:00)
[2021-08-12] MEDS ORDERED: POTASSIUM CHLORIDE 10MEQ SR TABLET PO ONE (11:40)
[2021-08-12] MEDS: THIAMINE 200MG 2ML VIAL IV SCH (12:00)
[2021-08-12] MEDS: KCL 10MEQ/100ML SWI (KRUN) 10 MEQ in IV 1 EA IV SCH ×4 (12:00→15:46)
[2021-08-12] MEDS: PERCOCET 5MG/325MG TAB PO PRN (12:27)
[2021-08-12 12:29] LABS: MAGNESIUM LEVEL 2.1 MG/DL (1.8-2.4); PHOSPHORUS LEVEL 2.1 MG/DL (2.5-4.9)
[2021-08-12] MEDS ORDERED: CEFOTAXIME SOD 2 GM in D5W MINI-BAG PLUS 50 ML IV SCH (12:30)
[2021-08-12] MEDS ORDERED: FOLIC ACID 1 MG TAB PO ONE ×2 (13:00→19:00)
[2021-08-12 13:13] LABS: INR 1.79; PROTHROMBIN TIME 21.2 SECONDS (12.7-14.5)
[2021-08-12 16:13] VITALS: BP 117/69
[2021-08-12] MEDS: cefTRIAXone SOD 2 GM in D5W MINI-BAG PLUS 50 ML IV SCH (16:57)
[2021-08-12] MEDS: LACTULOSE 20 GM/30 ML SYRUP UD PO SCH ×2 (16:57→22:20)
[2021-08-12 19:58] LABS: ALBUMIN 1.9 GM/DL (3.2-5.2); CALCIUM LEVEL 8.3 MG/DL (8.8-10.2); CREATININE FOR GFR 1.78 MG/DL (0.70-1.30); GLOMERULAR FILTRATION RATE 41.6 (>49); MAGNESIUM LEVEL 2.1 MG/DL (1.8-2.4); PHOSPHORUS LEVEL 2.7 MG/DL (2.5-4.9); POTASSIUM SERUM 3.6 MEQ/L (3.5-5.1); TOTAL PROTEIN 5.8 GM/DL (6.4-8.2)
[2021-08-12 22:12] VITALS: BP 110/75
[2021-08-12 23:15] VITALS: BP 110/72
[2021-08-13] MEDS: THIAMINE 200MG 2ML VIAL IV SCH ×4 (00:45→22:52)
[2021-08-13 02:06] VITALS: BP 96/54
[2021-08-13] MEDS: HEPARIN SOD (PORCINE) 5000UNITS/ML 1ML VIAL/SYRINGE IV PRN ×2 (03:03→14:17)
[2021-08-13 03:10] VITALS: BP 121/74
[2021-08-13 03:58] VITALS: BP 121/69
[2021-08-13 08:09] LABS: ALBUMIN 2.2 GM/DL (3.2-5.2); BILIRUBIN,TOTAL 5.7 MG/DL (0.2-1.0); CALCIUM LEVEL 8.3 MG/DL (8.8-10.2); CREATININE FOR GFR 1.63 MG/DL (0.70-1.30); MAGNESIUM LEVEL 2.3 MG/DL (1.8-2.4); PHOSPHORUS LEVEL 2.9 MG/DL (2.5-4.9); POTASSIUM SERUM 3.4 MEQ/L (3.5-5.1); TOTAL PROTEIN 5.7 GM/DL (6.4-8.2)
[2021-08-13] MEDS: MULTIVITAMINS/MINERALS THERAP 1 TAB PO SCH (08:18)
[2021-08-13] MEDS: methylPREDNISolone 40MG 1ML VIAL IV SCH (08:18)
[2021-08-13] MEDS: LACTULOSE 20 GM/30 ML SYRUP UD PO SCH ×3 (08:18→22:50)
[2021-08-13] MEDS ORDERED: POTASSIUM CHLORIDE 10MEQ SR TABLET PO ONE (10:45)
[2021-08-13 11:21] LABS: DRVV SCREEN 55.6 SEC
[2021-08-13 11:24] LABS: PTT LUPUS TYPE ANTICOAG SCREEN 1.5 (0-1.2)
[2021-08-13 11:32] LABS: DRVV CONFIRM 62.1 SEC; LUPUS CONFIRM RATIO 1.6
[2021-08-13 11:34] LABS: NORMALIZED RATIO 0.94 (0.00-1.20)
[2021-08-13 11:43] LABS: APPEARANCE, BODY FLUID CLEAR (CLEAR); ASCITES FL COLOR YELLOW (COLORLESS); SOURCE, BODY FLUID ASCITES
[2021-08-13 11:45] LABS: SPEC. GRAVITY BODY FLUIDS 1.006 (NOT ESTABLISHED)
[2021-08-13] MEDS: cefTRIAXone SOD 2 GM in D5W MINI-BAG PLUS 50 ML IV SCH (13:05)
[2021-08-13 14:00] VITALS: BP 123/77
[2021-08-13] MEDS: HEPARIN DRIP 25,000 UNITS in IV 1 EA IV SCH (14:19)
[2021-08-13] MEDS: PERCOCET 5MG/325MG TAB PO PRN (16:58)
[2021-08-13 20:16] LABS: SOURCE, BODY FLUID ALBUMIN ASCITES; SOURCE, BODY FLUID GLUCOSE ASCITES; SOURCE, BODY FLUID TOT PROTEIN ASCITES; TOTAL PROTEIN, BODY FLUID 0.3 G/DL (NOT ESTABLISHED)
[2021-08-13 22:00] VITALS: BP 133/76
[2021-08-14 04:29] LABS: BASO % 0.1 % (0.0-1.0); HEMATOCRIT 29.5 % (42.0-52.0); HEMOGLOBIN 9.9 g/dl (13.5-17.5); LYMPH # 0.5 10^3/uL (1.5-5.0); LYMPH % 6.6 % (24.0-44.0); MEAN CORPUSCULAR HEMOGLOBIN 33.9 pg (27.0-33.0); MEAN CORPUSCULAR HGB CONC 33.6 g/dl (32.0-36.5); MONO # 0.5 10^3/uL (0.0-0.8); NEUTROPHILS # 6.5 10^3/uL (1.5-8.5); NEUTROPHILS % 85.5 % (36.0-66.0); RED BLOOD COUNT 2.92 10^6/uL (4.30-6.10); WHITE BLOOD COUNT 7.6 10^3/uL (4.0-10.0)
[2021-08-14 04:32] LABS: PLATELET COUNT, AUTOMATED 44 10^3/uL (150-450)
[2021-08-14 04:37] LABS: INR 1.91; PROTHROMBIN TIME 22.3 SECONDS (12.7-14.5)
[2021-08-14 04:47] LABS: ALBUMIN 2.2 GM/DL (3.2-5.2); BILIRUBIN,TOTAL 5.7 MG/DL (0.2-1.0); CALCIUM LEVEL 8.2 MG/DL (8.8-10.2); CREATININE FOR GFR 1.4 MG/DL (0.70-1.30); GLOMERULAR FILTRATION RATE 54.8 (>49); MAGNESIUM LEVEL 2.1 MG/DL (1.8-2.4); PHOSPHORUS LEVEL 2.7 MG/DL (2.5-4.9); POTASSIUM SERUM 3.3 MEQ/L (3.5-5.1); TOTAL PROTEIN 5.9 GM/DL (6.4-8.2)
[2021-08-14] MEDS: THIAMINE 200MG 2ML VIAL IV SCH ×2 (04:49→11:12)
[2021-08-14 05:44] LABS: PARTIAL THROMBOPLASTIN TIME 192.5 SECONDS (25.9-37.0)
[2021-08-14 06:00] VITALS: BP 127/77
[2021-08-14] MEDS: methylPREDNISolone 40MG 1ML VIAL IV SCH (10:11)
[2021-08-14] MEDS: LACTULOSE 20 GM/30 ML SYRUP UD PO SCH ×2 (10:11→15:23)
[2021-08-14] MEDS: MULTIVITAMINS/MINERALS THERAP 1 TAB PO SCH (10:11)
[2021-08-14] MEDS: PERCOCET 5MG/325MG TAB PO PRN (11:12)
[2021-08-14] MEDS ORDERED: POTASSIUM CHLORIDE 10MEQ SR TABLET PO ONE ×2 (11:45→12:30)
[2021-08-14] MEDS ORDERED: ELIQ5TAB PO ×2 (13:31→14:27)
[2021-08-14] MEDS: cefTRIAXone SOD 2 GM in D5W MINI-BAG PLUS 50 ML IV SCH (13:32)
[2021-08-14 14:00] VITALS: BP 125/79
[2021-08-14] MEDS ORDERED: FOLI1TAB11 PO (14:27)
[2021-08-14] MEDS ORDERED: VITMTA PO (14:27)
[2021-08-14] MEDS ORDERED: THIA100T7 PO (14:27)
[2021-08-14] MEDS ORDERED: LACT20EL PO (14:27)
[2021-08-14] MEDS ORDERED: ALDA25TA2 PO (14:27)
[2021-08-14] MEDS ORDERED: APIXABAN 5 MG TAB (ELIQUIS) PO SCH (14:30)
[2021-08-14] MEDS ORDERED: CIPR500T39 PO (14:39)
[2021-08-14] MEDS ORDERED: DICL1GEL3 TOP (14:51)
[2021-08-14] MEDS ORDERED: BENG1CRE TOP (15:26)
[2021-08-15] MEDS ORDERED: SPIRONOLACTONE 25 MG TAB PO SCH (09:00)
[2021-08-18 13:07] LABS: ANTI THROMBIN 3 ANTIGEN IMMUNO 43 % (72-124); ANTI THROMBIN 3 FUNCT ACTIVITY 47 % (75-135); CARDIOLIPIN IGA ANTIBODY <9 APL U/mL (0-11); CARDIOLIPIN IGG ANTIBODY 13 GPL U/mL (0-14); CARDIOLIPIN IGM ANTIBODY <9 MPL U/mL (0-12); PHOSPHOLIPIDS LEVEL 109 mg/dL (150-250); PROTEIN C FUNCTIONAL ACTIVITY 38 % (73-180); PROTEIN S FUNCTIONAL ACTIVITY 51 % (63-140)
[2021-08-22] MEDS ORDERED: OMEP40CA5 PO (07:16)
[2021-09-08] MEDS ORDERED: FOLI1TAB11 PO (09:05)
[2021-09-08] MEDS ORDERED: SPIR50TA4 PO (09:05)
[2021-09-08] MEDS ORDERED: FLOV50AE INH (09:05)
[2021-09-08] MEDS ORDERED: TORS10TA3 PO (09:05)
[2021-09-08] MEDS ORDERED: [UNRECOGNIZED DRUG - OTHER] PO (09:05)
[2021-09-08] MEDS ORDERED: ELIQ5TAB PO (09:16)
[2021-09-08] MEDS ORDERED: LASI20TA3 PO (16:46)
== END 2021-08-14 17:18 | disposition home or self-care (01) | DRG 432 ==
LOC: M ED 09:38 → M ED INP 08-12 11:34 → M MSPAV 08-12 16:13
PROVIDERS: ADMIT Internal Medicine; ATTEND Internal Medicine
PROC: 0W9D3ZX Drainage of Pericardial Cavity, Percutaneous Approach, Diagnostic (ICD-10-PCS; principal; 2021-08-13 10:00)
DX: K70.31 Alcoholic cirrhosis of liver with ascites (principal); I81 Portal vein thrombosis; N17.9 Acute kidney failure, unspecified; I50.32 Chronic diastolic (congestive) heart failure; E87.2 Acidosis; N18.30 Chronic kidney disease, stage 3 unspecified; J45.909 Unspecified asthma, uncomplicated; N40.0 Benign prostatic hyperplasia without lower urinary tract symptoms; Z20.822 Contact with and (suspected) exposure to COVID-19; Z79.899 Other long term (current) drug therapy; E66.9 Obesity, unspecified; I11.0 Hypertensive heart disease with heart failure; M19.90 Unspecified osteoarthritis, unspecified site; D64.9 Anemia, unspecified; E88.09 Other disorders of plasma-protein metabolism, not elsewhere classified; R60.1 Generalized edema; E87.6 Hypokalemia

== ENCOUNTER 2021-08-18 12:07 | Inpatient (IN) | payer MEDICARE, MEDICAID ==
[~2021-08-18] VITALS: Ht 177.8 cm; Wt 111.9 kg
[~2021-08-18 12:07] MED LIST changes: +BENG1CRE TOP; +CIPR500T39 PO; +DICL1GEL3 TOP; +ELIQ5TAB PO; +FOLI1TAB11 PO; -LOSA100T45 PO; +LOSA100T50 PO; -LOSA25TA13 PO; +LOSA25TA14 PO; +MONT10TA10 PO; -MONT10TA97 PO; +OMEP-221 PO; -OMEP40CA5 PO; +THIA100T7 PO; +TORS10TA3 PO; +VITMTA PO
--- NOTE | 2021-08-18 13:38 | REP ---
INDICATION: shortness of breath COMPARISON: 08/11/2021 TECHNIQUE: Portable AP view of the chest FINDINGS: The mediastinum and cardiac silhouette are stable and within normal limits for portable technique. The lung sr are clear without acute consolidation, effusion, or pneumothorax. Skeletal structures are intact. IMPRESSION: No acute cardiopulmonary process appreciated. <Electronically signed by Jose Qureshi > 08/18/21 [id number]
[2021-08-18 14:25] LABS: BASO % 0.2 % (0.0-1.0); EOS # 0.1 10^3/uL (0.0-0.5); EOS % 2.9 % (0.0-3.0); HEMATOCRIT 29.2 % (42.0-52.0); LYMPH # 0.5 10^3/uL (1.5-5.0); LYMPH % 10.7 % (24.0-44.0); MEAN CORPUSCULAR HEMOGLOBIN 34.8 pg (27.0-33.0); MEAN CORPUSCULAR HGB CONC 34.2 g/dl (32.0-36.5); MEAN CORPUSCULAR VOLUME 101.7 fl (80.0-96.0); MONO # 0.6 10^3/uL (0.0-0.8); MONO % 12.4 % (2.0-8.0); NEUTROPHILS # 3.5 10^3/uL (1.5-8.5); NEUTROPHILS % 71.3 % (36.0-66.0); RED BLOOD COUNT 2.87 10^6/uL (4.30-6.10); WHITE BLOOD COUNT 4.9 10^3/uL (4.0-10.0)
[2021-08-18 14:26] LABS: PLATELET COUNT, AUTOMATED 37 10^3/uL (150-450)
[2021-08-18 14:34] LABS: INR 1.91; PROTHROMBIN TIME 22.3 SECONDS (12.7-14.5)
[2021-08-18 14:35] LABS: PARTIAL THROMBOPLASTIN TIME 40.1 SECONDS (25.9-37.0)
[2021-08-18 14:54] LABS: BILIRUBIN,TOTAL 7.5 MG/DL (0.2-1.0); CREATININE FOR GFR 1.31 MG/DL (0.70-1.30); GLOMERULAR FILTRATION RATE 59.2 (>49); POTASSIUM SERUM 3.1 MEQ/L (3.5-5.1); TOTAL PROTEIN 5.4 GM/DL (6.4-8.2)
[2021-08-18 14:58] LABS: RSV AMPLIFICATION NEGATIVE (NEGATIVE)
[2021-08-18] MEDS ORDERED: ISOVUE-370 76% 100ML VIAL As Ordered ONE (15:06)
--- NOTE | 2021-08-18 15:49 | REP ---
INDICATION: abdominal pain, ascites. COMPARISON: 08/11/2021, 07/14/2020 TECHNIQUE: Axial contrast-enhanced images from the lung bases to the pubic symphysis using 100 cc Isovue 370 intravenous contrast material. . This CT examination was performed using the following dose reduction techniques: Automated exposure control, adjustment of mA and/or kv according to the patient's size, and the use of iterative reconstruction technique. FINDINGS: Liver is stable and significantly shrunken with nodular contour and marked ascites throughout the abdomen and pelvis again consistent with cirrhosis and portal hypertension. No focal hepatic lesions are identified. Splenomegaly is appreciated and the small triangular area of low density extending from the capsule medially appears less pronounced than prior examination and likely represent sequelae of small infarction. The spleen is otherwise normal and homogeneous in parenchymal density without further splenic abnormalities identified. Gallbladder, pancreas, bilateral adrenal glands, and kidneys are essentially normal/stable. Small hiatal hernia at the gastroesophageal junction is again noted. Remainder of the enteric system is relatively normal and there is no evidence for obstruction or obvious focal inflammatory process. Diverticulosis noted without acute diverticulitis. No free air. Pelvis demonstrates normal bladder and age-appropriate prostate/seminal vesicles. No ascites. No free air. No intraperitoneal or retroperitoneal adenopathy. Abdominal aorta and vasculature appear normal. Musculoskeletal structures demonstrate osteopenia and degenerative changes along with chronic appearing compression deformity at L1. IMPRESSION: 1. Findings related to cirrhosis including ascites and portal hypertension described above are unchanged. 2. Low-density area within the spleen is less pronounced and likely represent sequelae of prior infarction. No new splenic abnormalities are identified. 3. Further nonacute findings as noted above. <Electronically signed by Jose Qureshi > 08/18/21 2016
[2021-08-18] MEDS ORDERED: POTASSIUM CHLORIDE 10MEQ SR TABLET PO ONE (16:20)
[2021-08-18] MEDS ORDERED: LORazepam 2 MG TAB PO PRN (16:25)
[2021-08-18] MEDS ORDERED: ELIQ5TAB PO (17:20)
[2021-08-18] MEDS ORDERED: POTA1TAB23 PO (17:20)
[2021-08-18] MEDS ORDERED: THIA100T7 PO (17:20)
[2021-08-18] MEDS ORDERED: SPIR-10 PO (17:20)
[2021-08-18] MEDS ORDERED: BENG1CRE TOP (17:20)
[2021-08-18] MEDS ORDERED: CIPR-249 PO (17:20)
[2021-08-18] MEDS ORDERED: LACT20EL PO (17:20)
[2021-08-18] MEDS ORDERED: FOLI1TAB11 PO (17:20)
[2021-08-18] MEDS ORDERED: HOME MED LIST COMPLETE! XX SCH (17:25)
[2021-08-18] MEDS ORDERED: MULTIVITAMIN -ADULT INJECTION 10 ML, THIAMINE INJection 100 MG, FOLIC ACID 1 MG in NS 1... IV ONE (18:00)
[2021-08-18 18:39] VITALS: BP 133/70
[2021-08-18] MEDS: LACTOBACILLUS ACIDOPHILUS CAP (BACID) PO SCH (18:59)
[2021-08-18] MEDS: MIDODRINE 5 MG TAB PO SCH (19:00)
[2021-08-18 19:18] LABS: INR 1.81; PARTIAL THROMBOPLASTIN TIME 38.7 SECONDS (25.9-37.0); PROTHROMBIN TIME 21.4 SECONDS (12.7-14.5)
[2021-08-18 20:00] VITALS: BP 97/61
--- NOTE | 2021-08-18 20:00 | REPVR ---
PROCEDURE INFORMATION: Exam: MR Abdomen Without Contrast Exam date and time: 08/18/2021 5:37 PM Age: 61 years old Clinical indication: Abdominal pain; Acute; Additional info: Elevated bili R/O ductal dilatation TECHNIQUE: Imaging protocol: MR of the abdomen without contrast. COMPARISON: CT ABD/PEL W/IV CONTRAST ONLY 08/18/2021 3:25 PM FINDINGS: Limitations: Exam is severely degraded (borderline nondiagnostic) due to patient motion. Mediastinal space: There is a small hiatal hernia. Liver: Small liver with cirrhotic morphology and surface nodularity. No liver mass is seen. Gallbladder and bile ducts: Mild gallbladder wall thickening. No calculi. No ductal dilation. No obstructing biliary tract stones are seen. Pancreas: Not well visualized. Spleen: The spleen is enlarged measuring 16 cm craniocaudally. Adrenal glands: Not well visualized Kidneys and ureters: Not well visualized. Stomach and bowel: Not well visualized. Intraperitoneal space: There is a large volume of abdominal ascites, similar to the prior exam. Arteries: Not well visualized. IMPRESSION: 1. Very limited exam secondary to excessive patient motion. 2. No large biliary calculi or biliary duct dilation. Mild gallbladder wall thickening may be secondary to cirrhosis and portal hypertension. 3. Cirrhotic liver with large volume of ascites. 4. Small hiatal hernia. Electronically signed by: Elijah Angel On 08/18/2021 20:00:30 PM
[2021-08-18] MEDS ORDERED: HEPARIN SOD (PORCINE) 5000UNITS/ML 1ML VIAL/SYRINGE IV PRN (20:20)
[2021-08-18] MEDS ORDERED: HEPARIN DRIP 25,000 UNITS in IV 1 EA IV SCH (20:20)
--- NOTE | 2021-08-18 20:32 | HPEPDOC ---
[facility] Medical History & Physical Date of Admission Aug 18, 2021 Date of Service: Aug 18, 2021 History and Physical CHIEF COMPLAINT: Increasing abdominal distention 15 pound weight gain from 218 to 240 pounds HISTORY OF PRESENT ILLNESS: 61-year-old male full code with history of alcoholic liver cirrhosis with portal hypertension, left portal vein thrombosis diagnosed August 12, 2021 discharged on Eliquis, recurrent ascites, grade 1 esophageal varices, portal hypertensive gastropathy, congestive heart failure with preserved ejection fraction and grade 1 left ventricular diastolic dysfunction, chronic kidney disease stage III, hypertension, obesity BMI of 34.5, was recently discharged from [facility] on August 14, 2021 with decompensated liver cirrhosis with ascites complicated by renal failure discharge and spironolactone 25 mg daily presents again today with weight gain abdominal distention slight shortness of breath with exertion, without nausea, vomiting, fever, chills, bright red blood per rectum, coffee- ground emesis, hematemesis, melena, black tarry stools, or confusion. Patient has not noticed if he was increasingly jaundiced, but bilirubin on admission today is 7.5 meld score of 26 and discriminant function of 51.7. Covid negative. Chest x-ray negative, CT abdomen pelvis: Ascites liver cirrhosis with portal hypertension, small splenic infarct, old. Hospitalist was asked to admit for decompensated liver cirrhosis with recurrent ascites portal hypertension, on Eliquis for portal venous thrombosis, with hypotension status post midodrine and banana bag infusion. PAST MEDICAL HISTORY: Decompensated alcoholic cirrhosis with ascites, thrombocytopenia, Esophageal varices grade 1 in Jun 2020. 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 Diastolic CHF: [id number]% Grade 1 LV diastolic dysfunction, Internal hemorrhoids Asthma obesity hypertension osteoarthritis CKD stage 2 to 3 Hypoalbuminemia. Anemia. PAST SURGICAL HISTORY: Multiple thoracentesis and paracentesis due to decompensated liver cirrhosis, bilateral inguinal hernia surgery, right knee arthroscopy, left fourth finger tendon repair SOCIAL HISTORY: Last drink 2 years ago denies smoking. Last use of marijuana was late June FAMILY HISTORY: Father: Coronary artery disease Brother: Possible brain aneurysm ALLERGIES: Please see below. REVIEW OF SYSTEMS: 10 point review of system was negative except for what is noted in the HPI HOME MEDICATIONS: Please see below. PHYSICAL EXAMINATION: VITAL SIGNS: Please see below General: Sitting up in 90 degree position jaundice icterus no conversational dyspnea Head/Neck/Throat: No JVD thyromegaly or cervical lymphadenopathy trachea midl ine, mucous membranes moist Lungs: Diminished but clear to auscultation no wheezing rales or rhonchi Heart: S1-S2 regular rate rhythm no murmurs rubs or gallops no carotid bruit Abdomen: Distended positive bowel sounds positive fluid wave positive splenomegaly left lower quadrant tenderness No rebound guarding no CVA tenderness Extremities 2+ pitting edema to the sacrum excoriations noted on the shins bilaterally LABORATORY DATA, IMAGING STUDIES, MICROBIOLOGY: SEE BELOW 61-year-old male full code with history of alcoholic liver cirrhosis with portal hypertension, left portal vein thrombosis diagnosed August 12, 2021 discharged on Eliquis, recurrent ascites, grade 1 esophageal varices, portal hypertensive gastropathy, congestive heart failure with preserved ejection fraction and grade 1 left ventricular diastolic dysfunction, chronic kidney disease stage III, hypertension, obesity BMI of 34.5, was recently discharged from [facility] on August 14, 2021 with decompensated liver cirrhosis with ascites complicated by renal failure discharge and spironolactone 25 mg daily presents again today with weight gain abdominal distention slight shortness of breath with exertion, without nausea, vomiting, fever, chills, bright red blood per rectum, coffee- ground emesis, hematemesis, melena, black tarry stools, or confusion. Patient has not noticed if he was increasingly jaundiced, but bilirubin on admission today is 7.5 meld score of 26 and discriminant function of 51.7. Covid negati ve. Chest x-ray negative, CT abdomen pelvis: Ascites liver cirrhosis with portal hypertension, small splenic infarct, old. Hospitalist was asked to admit for decompensated liver cirrhosis with recurrent ascites portal hypertension, on Eliquis for portal venous thrombosis, with hypotension status post midodrine and banana bag infusion. Acute decompensated alcoholic liver cirrhosis with recurrent ascites, portal hypertension, portal gastropathy, left portal vein thrombosis, jaundice Supportive care discontinue Eliquis due to planned ultrasound-guided paracentesis. .IV heparin drip while waiting for procedure. IV heparin drip to be held 6 hours prior to therapeutic ultrasound-guided paracentesis. Xifaxan twice daily, PPI. Peritoneal fluid analysis. Resume anticoagulation after paracentesis. Midodrine 10 mg at 8 AM, noon, 4 PM to keep mean arterial pressure above 65-70. Monitor electrolytes, while on Lasix intravenous drip at 5 mg/h to be held if creatinine is greater than 1.6 or systolic pressure less than 110 mmHg. Transfuse albumin 12.5 g 25% every 6 hourly x4 after paracent esis. Check MRCP to rule out obstruction as cause for patient's jaundice. Prednisone 40 daily. Monitor for GI bleed fevers and rule out spontaneous bacterial peritonitis with paracentesis tomorrow. Rule out other etiologies for sudden decompensation such as acetaminophen level, hepatitis profile, CMV, EBV, parvovirus, MINDI. Refer for TIPS procedure as outpatient. Chronic kidney disease stage III Secondary to decompensated liver cirrhosis with decreased effective circulating volume. Albumin transfusions and midodrine to increase mean arterial pressure and improve perfusion. Avoid Lasix boluses due to sudden hypotension which could worsen renal failure. Trial of Lasix intravenous drip to be held if worsening creatinine or hypotension. 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 On chronic Eliquis but held temporarily due to planned paracentesis for recurrent ascites. Chronic hypotension in the setting of decompensated liver cirrhosis -Midodrine [address] holding parameters on Lasix drip to prevent further hypotension. No signs of infection. Check procalcitonin ESR CRP. If p atient develops a fever empirically treat for SBP. Chest x-ray negative for infection. CT abdomen pelvis negative for infectious etiology negative UA. Paracentesis in the morning to rule out SBP CHF, diastolic dysfunction with preserved ejection fraction, compensated -Chest x-ray without edema vascular congestion. Strict I's and O's Daily weights Anemia of chronic disease -No signs of GI bleed. No acute indication for RBC transfusion Asthma, compensated Obesity BMI of 34.5 Most likely due to fluid overload due to liver cirrhosis. Diet: Renal diet CODE STATUS: Full code DVT prophylaxis: Was on Eliquis at home, on IV heparin drip for portal vein thrombosis as inpatient. Vital Signs Vital Signs Date Time Temp Pulse Resp B/P (MAP) Pulse Ox O2 Delivery O2 Flow Rate FiO2 08/18/21 18:39 97.8 101 20 133/70 (91) 98 Room Air Laboratory Data Labs 24H Laboratory Tests 2 08/18/21 13:17: Immature Granulocyte % (Auto) 2.5, Neutrophils (%) (Auto) 71.3H, Lymphocytes (%) (Auto) 10.7L, Monocytes (%) (Auto) 12.4H, Eosinophils (%) (Auto) 2.9, Basophils (%) (Auto) 0.2, Neutrophils # (Auto) 3.5, Lymphocytes # (Auto) 0.5L, Monocytes # (Auto) 0.6, Eosinophils # (Auto) 0.1, Basophils # (Auto) 0.0, Nucleated Red Blood Cells % (auto) 0.0, Immature Platelet Fraction 7.6, Prothrombin Time 22.3H, Prothromb Time International Ratio 1.91, Activated Partial Thromboplast Time 40.1H, Anion Gap 7L, Glomerular Filtration Rate 59.2, Lactic Acid Level 1.9, Calcium Level 8.0L, Total Bilirubin 7.5H, Direct Bilirubin 4.0H, Aspartate Amino Transf (AST/SGOT) 107H, Alanine Aminotransferase (ALT/SGPT) 87H, Alkaline Phosphatase 230H, Total Protein 5.4L, Albumin 2.0L, Albumin/Globulin Ratio 0.6, Amylase Level 70, Lipase 225 08/18/21 13:33: Urine Color ALEJANDRO, Urine Appearance CLEAR, Urine pH 5.0, Urine Specific [place] 1.011, Urine Protein NEGATIVE, Urine Glucose (UA) NEGATIVE, Urine Ketones NEGATIVE, Urine Blood NEGATIVE, Urine Nitrite NEGATIVE, Urine Bilirubin NEGATIVE, Urine Urobilinogen 0.2, Urine Leukocyte Esterase TRACEH, Urine WBC (Auto) 8H, Urine RBC (Auto) 0, Urine Hyaline Casts (Auto) 4, Urine Bacteria (Auto) NEGATIVE, Urine Squamous Epithelial Cells 0, Urine Mucus (Auto) SMALL, Urine Sperm (Auto) , Coronavirus (COVID-19)(PCR) NEGATIVE, Influenza Type A (RT- PCR) NEGATIVE, Influenza Type B (RT-PCR) NEGATIVE, Respiratory Syncytial Virus (PCR) NEGATIVE 08/18/21 18:53: Prothrombin Time 21.4H, Prothromb Time International Ratio 1.81, Activated Partial Thromboplast Time 38.7H CBC/BMP Laboratory Tests 08/18/21 13:17 Microbiology Microbiology 08/18/21 Urine Culture, Received Pending 08/18/21 Blood Culture, Received Pending 08/18/21 Blood Culture, Received Pending Home Medications Scheduled Apixaban (Eliquis) 5 Mg Tablet, 5 MG PO BID Ciprofloxacin HCl (Cipro) 500 Mg Tablet, 500 MG PO BID Fluticasone Propionate (Flovent Hfa) 44 Mcg/Act Aer.w.adap, 1 PUFF INH BID Folic Acid (Folic Acid) 1 Mg Tablet, 1 MG PO DAILY Lactulose (Lactulose) 10 Gm/15 Ml Solution, 15 ML PO TID Methyl Salicylate/Menth/Camph (Bengay Ultra Strength Cream) 57 Gm Cream..g., 1 APPFUL TOP DAILY APPLY TO BILAT KNEES Multivitamin (Multivitamins) 1 Each Tablet, 1 TAB PO DAILY Omeprazole (Omeprazole) 40 Mg Capsule.dr, 40 MG PO DAILY Potassium Chloride (Potassium Chloride) 10 Meq Tablet.er, 10 MEQ PO DAILY Spironolactone (Spironolactone) 25 Mg Tablet, 25 MG PO DAILY Tamsulosin Hcl (Tamsulosin HCl) 0.4 Mg Capsule, 0.4 MG PO DAILY Thiamine HCl (Thiamine HCl) 100 Mg Tablet, 100 MG PO DAILY Scheduled PRN Albuterol Sulfate (Ventolin Hfa) 18 Gm Hfa.aer.ad, 2 PUFFS INH QID PRN for SOB/WHEEZING Allergies Coded Allergies: POLLEN (Verified Allergy, Unknown, 05/22/20) A-FIB/CHADSVASC A-FIB History Current/History of A-Fib/PAF?: No Current PO Anticoag Therapy: No Age/Risk Factor Scoring CHADSVASC: CHADSVASC Response (Comments) Value Age Risk Factor Age < 65 years old 0 Hx of CHF Yes 1 Hx of HTN No 0 Hx of Stroke/TIA/or VTE No 0 Hx of Diabetes No 0 Hx of Vascular Disease No 0 Total 1 Treatment Treatment ordered: Heparin IV bridge Therapy JASMINA ALMODOVAR MD Aug 18, 2021 19:26
[2021-08-18] MEDS: FUROSEMIDE injection 250 MG in D5W 225 ML IV SCH ×2 (22:00→22:26)
[2021-08-18] MEDS ORDERED: MORPHINE 4 MG/ML 1ML VIAL/SYRINGE (J2270) IV PRN (22:15)
[2021-08-18] MEDS: THIAMINE 100 MG TAB PO SCH (22:25)
[2021-08-18] MEDS: POTASSIUM CHLORIDE 10MEQ SR TABLET PO SCH (22:26)
[2021-08-18] MEDS: MORPHINE 2 MG/ML 1ML VIAL (J2270) IV PRN (22:29)
[2021-08-18 23:52] VITALS: BP 98/64
[2021-08-19] VITALS (8 sets, daily range): BP systolic 95–108; BP diastolic 51–66
[2021-08-19] MEDS: FUROSEMIDE injection 250 MG in D5W 225 ML IV SCH (00:02)
[2021-08-19 00:37] LABS: CALCIUM LEVEL 7.6 MG/DL (8.8-10.2); CREATININE FOR GFR 1.31 MG/DL (0.70-1.30); GLOMERULAR FILTRATION RATE 59.2 (>49); MAGNESIUM LEVEL 1.7 MG/DL (1.8-2.4); POTASSIUM SERUM 3.4 MEQ/L (3.5-5.1)
[2021-08-19 05:11] LABS: EOS # 0.2 10^3/uL (0.0-0.5); EOS % 3.4 % (0.0-3.0); HEMATOCRIT 22.6 % (42.0-52.0); LYMPH # 0.5 10^3/uL (1.5-5.0); LYMPH % 10.8 % (24.0-44.0); MEAN CORPUSCULAR HEMOGLOBIN 35.2 pg (27.0-33.0); MEAN CORPUSCULAR HGB CONC 33.6 g/dl (32.0-36.5); MEAN CORPUSCULAR VOLUME 104.6 fl (80.0-96.0); MONO # 0.6 10^3/uL (0.0-0.8); MONO % 12.8 % (2.0-8.0); NEUTROPHILS % 69.3 % (36.0-66.0); RED BLOOD COUNT 2.16 10^6/uL (4.30-6.10); WHITE BLOOD COUNT 4.4 10^3/uL (4.0-10.0)
[2021-08-19 05:16] LABS: HEMOGLOBIN 7.6 g/dl (13.5-17.5); PLATELET COUNT, AUTOMATED 31 10^3/uL (150-450)
[2021-08-19 05:21] LABS: INR 2.51; PROTHROMBIN TIME 27.4 SECONDS (12.7-14.5)
[2021-08-19 05:57] LABS: ALBUMIN 1.6 GM/DL (3.2-5.2); ALT/SGPT 60 U/L (12-78); BILIRUBIN,TOTAL 5.1 MG/DL (0.2-1.0); BLOOD UREA NITROGEN 20 MG/DL (7-18); CALCIUM LEVEL 6.5 MG/DL (8.8-10.2); CARBON DIOXIDE LEVEL 26 MEQ/L (21-32); CHLORIDE LEVEL 106 MEQ/L (98-107); CREATININE FOR GFR 1.01 MG/DL (0.70-1.30); GLOMERULAR FILTRATION RATE > 60.0 (>49); GLUCOSE, FASTING 91 MG/DL (70-100); MAGNESIUM LEVEL 1.3 MG/DL (1.8-2.4); PARTIAL THROMBOPLASTIN TIME > 240.0 SECONDS (25.9-37.0); POTASSIUM SERUM 3.4 MEQ/L (3.5-5.1); SODIUM LEVEL 137 MEQ/L (136-145); TOTAL PROTEIN 4.2 GM/DL (6.4-8.2)
[2021-08-19] MEDS ORDERED: MAG SULF 1GM/100ML (MAG RUN) 1 GM in IV 1 EA IV ONE (08:00)
[2021-08-19] MEDS: POTASSIUM CHLORIDE 10MEQ SR TABLET PO SCH ×2 (08:39→20:19)
[2021-08-19] MEDS: OMEPRAZOLE 20 MG CAP PO SCH (08:39)
[2021-08-19] MEDS: THIAMINE 100 MG TAB PO SCH ×2 (08:39→20:18)
[2021-08-19] MEDS: MULTIVITAMINS/MINERALS THERAP 1 TAB PO SCH (08:39)
[2021-08-19] MEDS: MIDODRINE 5 MG TAB PO SCH ×3 (08:39→16:28)
[2021-08-19] MEDS: FOLIC ACID 1 MG TAB PO SCH (08:39)
[2021-08-19] MEDS: LACTOBACILLUS ACIDOPHILUS CAP (BACID) PO SCH ×2 (08:39→18:31)
[2021-08-19] MEDS: predniSONE 20 MG TAB PO SCH (08:40)
[2021-08-19 13:08] LABS: HEMATOCRIT 25.9 % (42.0-52.0); HEMOGLOBIN 8.8 g/dl (13.5-17.5); MEAN CORPUSCULAR HEMOGLOBIN 34.9 pg (27.0-33.0); MEAN CORPUSCULAR VOLUME 102.8 fl (80.0-96.0); PLATELET COUNT, AUTOMATED 36 10^3/uL (150-450); RED BLOOD COUNT 2.52 10^6/uL (4.30-6.10); WHITE BLOOD COUNT 5.1 10^3/uL (4.0-10.0)
[2021-08-19 13:12] LABS: BLOOD UREA NITROGEN 22 MG/DL (7-18); CALCIUM LEVEL 7.9 MG/DL (8.8-10.2); CARBON DIOXIDE LEVEL 28 MEQ/L (21-32); CHLORIDE LEVEL 98 MEQ/L (98-107); CREATININE FOR GFR 1.15 MG/DL (0.70-1.30); GLOMERULAR FILTRATION RATE > 60.0 (>49); GLUCOSE, FASTING 98 MG/DL (70-100); POTASSIUM SERUM 3.9 MEQ/L (3.5-5.1); SODIUM LEVEL 133 MEQ/L (136-145)
[2021-08-19 13:17] LABS: INR 1.74; PROTHROMBIN TIME 20.8 SECONDS (12.7-14.5)
[2021-08-19 13:18] LABS: PARTIAL THROMBOPLASTIN TIME 44.6 SECONDS (25.9-37.0)
[2021-08-19 15:54] LABS: SPEC. GRAVITY BODY FLUIDS 1.006 (NOT ESTABLISHED)
[2021-08-19 15:56] LABS: SOURCE, BODY FLUID PERITONEAL
[2021-08-19 15:57] LABS: APPEARANCE, BODY FLUID HAZY (CLEAR); PERITONEAL FL COLOR PALE YELLOW (COLORLESS)
[2021-08-19 16:24] LABS: SOURCE, BODY FLUID ALBUMIN PERITONEAL; SOURCE, BODY FLUID GLUCOSE PERITONEAL; SOURCE, BODY FLUID TOT PROTEIN PERITONEAL; TOTAL PROTEIN, BODY FLUID 0.3 G/DL (NOT ESTABLISHED)
--- NOTE | 2021-08-19 16:41 | REP ---
INDICATION: RECURRENT ASCITES THERAPEUTIC. COMPARISON: None. TECHNIQUE: The procedure was performed under the direct supervision of Dr. Chung. The risks and benefits of the procedure were explained to the patient and informed consent was obtained. The largest pocket of fluid was localized in the right flank using ultrasound guidance. The skin was prepped and draped in a sterile fashion. Five mL of 1% lidocaine was used as a local anesthetic. An 8-Yi multi side-hole catheter was inserted using trocar technique.4150 mL of low viscosity red colored fluid was withdrawn with a sample sent to the lab for analysis. Estimated blood loss: Less than 1 The patient tolerated the procedure well and there were no immediate complications. After the appropriate amount of monitored convalescence, the patient was discharged from the department. FINDINGS: None IMPRESSION: Ultrasound-guided paracentesis [id number] mL of low viscosity red colored fluid. <Electronically signed by Papito Daniels > 08/19/21 1530 <Electronically signed by Eliezer Chung > 08/19/21 1154
[2021-08-19] MEDS ORDERED: ALBUTEROL 90 MCG/ACT 8GM HFA INHALER INH PRN (16:50)
--- NOTE | 2021-08-19 17:07 | IPNPDOC ---
Date Seen The patient was seen on 08/19/21. Progress Note SUBJECTIVE: H&H decreased to 7.6/22 today, repeat 8.8/25.9. Lasix drip stopped and heparin drip stopped due to occult blood being positive and high risk for bleeding. Blood pressure soft, patient asymptomatic and on midodrine. Went for paracentesis already took 4.1 L off, has been getting albumin. Denies increased abdominal pain, chest pain or shortness of breath. OBJECTIVE: PHYSICAL EXAMINATION: VITAL SIGNS: Please see below General: Sitting up in bed, no acute distress, awake alert oriented x3 Head/Neck/Throat: No JVD thyromegaly or cervical lymphadenopathy trachea midline, mucous membranes moist Lungs: Diminished but clear to auscultation, no wheezing/ rales/ rhonchi Heart: S1-S2 regular rate rhythm, no murmurs/ rubs/ gallops, no carotid bruit GI: Distended, positive bowel sounds in 4 quad, positive fluid wave, positive splenomegaly, nontender, no rebound guarding no CVA tenderness Integumentary: Jaundiced, multiple bruises on the upper and lower extremities. Excoriation tyler on the lower extremities bilaterally. Extremities: 2+ pitting edema to the sacrum, no cyanosis or clubbing Neuro: No focal deficits, cranial nerves II-XII intact Psych: Mood and affect appropriate LABORATORY DATA, IMAGING STUDIES, MICROBIOLOGY: SEE BELOW ASSESSMENT: 61-year-old male PMH alcoholic liver cirrhosis with portal hypertension, left portal vein thrombosis diagnosed August 12, 2021 discharged on Eliquis, recurrent ascites, grade 1 esophageal varices, portal hypertensive g astropathy, congestive heart failure with preserved ejection fraction and grade 1 left ventricular diastolic dysfunction, chronic kidney disease stage III, hypertension, obesity BMI of 34.5 admitted for acute decompensated alcoholic liver cirrhosis with recurrent ascites. PLAN: Acute decompensated alcoholic liver cirrhosis with recurrent ascites -AAOx3 -Paracentesis done today, 4.1 L of fluid taken off with improvement of abdominal discomfort -Ordered albumin x 5, still infusing -MELD score 24, bili has been high and has improved since admission (fluctuates and has ) -Denies abd pain currently -Case discussed with GI last admission, decision was made to follow up as o/p after discharge then -AST/ALT, INR improving -F/u ascites fluid studies, cx. Low PMNs on ascites fluid testing so unlikely SBP; However, high risk with cirrhosis and ? GI bleed with occult blood +. -Stopped lasix drip, heparin gtt. No anticoagulation with occult + stool -Restarted home spironolactone, ciprofloxacin BID, lactulose TID. C/w xifaxan BID, PPI, midodrine. Acute on chronic anemia cannot r/o GI bleed -Hx of known esophageal varices, Grade 1- seen on endoscopy Jun 2020 -H/H 7.6/22 this AM, repeat at 14:00 showed H/H improved to 8.8/25 -Occult blood + with dark stools seen this AM -No overt bleeding, HR wnl, BP soft -Stopped heparin gtt and would recommend NOT RESTARTING anticoagulation now or at discharge for this patient -Monitor closely with tele, CBC Q12H, type and screen. -If s/s worsen, make NPO -Repeat has improved so will hold off on transfer at this time. If worsens, will need transfer. If does well overnight, will curbside o/p GI to get recommendations on 08/20/21. Case discussed with Dr. Yap last admission. Hypomagnesemia -S/p mag run -F/u mag level in AM Chronic kidney disease stage III 2/2 to decompensated liver cirrhosis -Cr improved, currently 1.15 -Recently discharged with Cr 1.4 -Has received albumin transfusions and midodrine to increase mean arterial p ressure -Stop lasix gtt for now -Daily labs- watch as restarting lactulose, spironolactone -Consider nephrology consult if Cr bumps again or fluid accumulates further Portal vein thrombosis -Dx on recent hospitalization -GI recommended anticogulation at discharge last admission -Stopping all anticoagulation now with occult blood +, ruling out GI bleed 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 -Holding anticoagulation Chronic hypotension in the setting of decompensated liver cirrhosis -Stopped lasix gtt -C/w midodrine 3 times daily -At this time, not suspecting sepsis/septic shock or infection as cause. On empiric abx for SBP. -Tele HFpEF without exacerbation -Chest x-ray without edema vascular congestion. -Strict I's and O's Daily weights Asthma, compensated -RA, no SOB -C/w home inhalers Obesity BMI of 34.5 Most likely due to fluid overload due to liver cirrhosis. CODE STATUS: Full code DVT prophylaxis: Teds/SCD DISPOSITION: No GI to consult, watching CBC closely. Full Code. VS, I&O, 24H, Fishbone Vital Signs/I&O Vital Signs Date Time Temp Pulse Resp B/P (MAP) Pulse Ox O2 Delivery O2 Flow Rate FiO2 08/19/21 15:34 97.7 70 17 108/53 (71) 99 08/19/21 15:15 Room Air I&O- Last 24 Hours up to 6 AM 08/19/21 06:00 Intake Total 770.0 ml Output Total 450 ml Balance 320.0 ml Laboratory Data 24H LABS Laboratory Tests 2 08/18/21 18:53: Prothrombin Time 21.4H, Prothromb Time International Ratio 1.81, Activated Partial Thromboplast Time 38.7H 08/19/21 00:02: Anion Gap 7L, Glomerular Filtration Rate 59.2, Calcium Level 7.6L, Whole Blood Ionized Calcium 3.7L, Magnesium Level 1.7L 08/19/21 04:44: Prothrombin Time 27.4H, Prothromb Time International Ratio 2.51, Activated Partial Thromboplast Time > 240.0*H, Anion Gap 5L, Glomerular Filtration Rate > 60.0, Calcium Level 6.5L, Whole Blood Ionized Calcium 3.7L, Magnesium Level 1.3L, Immature Granulocyte % (Auto) 3.7H, Neutrophils (%) (Auto) 69.3H, Lymphocytes (%) (Auto) 10.8L, Monocytes (%) (Auto) 12.8H, Eosinophils (%) (Auto) 3.4H, Basophils (%) (Auto) 0.0, Neutrophils # (Auto) 3.0, Lymphocytes # (Auto) 0.5L, Monocytes # (Auto) 0.6, Eosinophils # (Auto) 0.2, Basophils # (Auto) 0.0, Nucleated Red Blood Cells % (auto) 0.0, Total Bilirubin 5.1H, Aspartate Amino Transf (AST/SGOT) 70H, Alanine Aminotransferase (ALT/SGPT) 60, Alkaline Phosphatase 153H, Total Protein 4.2#L, Albumin 1.6L, Albumin/Globulin Ratio 0.6 08/19/21 08:05: Activated Partial Thromboplast Time 201.4*H 08/19/21 12:15: Anion Gap 7L, Glomerular Filtration Rate > 60.0, Calcium Level 7.9#L 08/19/21 12:52: Nucleated Red Blood Cells % (auto) 0.0, Prothrombin Time 20.8H, Prothromb Time International Ratio 1.74, Activated Partial Thromboplast Time 44.6H 08/19/21 15:00: Body Fluid Specific [place] 1.006, Body Fluid WBC (Auto) 44H, Body Fluid RBC (Auto) 5, Body Fluid Mononuclear Cells % Auto 86.4H, Fluid Polymorphonuclear Cell % Auto 13.6H, Peritoneal Fluid Source PERITONEAL, Peritoneal Fluid Color PALE YELLOW, Peritoneal Fluid Appearance HAZY CBC/BMP Laboratory Tests 08/19/21 00:02 08/19/21 04:44 08/19/21 12:15 08/19/21 12:52 Microbiology Microbiology 08/19/21 Fungal Smear, Received Pending 08/19/21 Fungal Culture, Received Pending 08/19/21 Anaerobic Culture, Received Pending 08/19/21 Gram Stain, Received Pending 08/19/21 Body Fluid Culture, Received Pending 08/19/21 Stool Occult Blood (ROGER) - Final, Complete 08/18/21 Urine Culture - Final, Complete 08/18/21 Blood Culture - Preliminary, Resulted No growth after 24 hours . All specim... 08/18/21 Blood Culture - Preliminary, Resulted No growth after 24 hours . All specim... Martha Arevalo MD Aug 19, 2021 17:07
[2021-08-19] MEDS: CIPROFLOXACIN 500MG TABLET PO SCH (18:31)
[2021-08-19] MEDS: FLUTICASONE HFA 44 MCG 10.6GM INHALER (FLOVENT) INH SCH (20:03)
[2021-08-19] MEDS: LACTULOSE 20 GM/30 ML SYRUP UD PO SCH (20:19)
[2021-08-19] MEDS: MORPHINE 2 MG/ML 1ML VIAL (J2270) IV PRN (20:33)
[2021-08-19] MEDS ORDERED: BACTRIM 160MG/800MG DS TAB PO SCH (21:00)
[2021-08-20] VITALS (11 sets, daily range): BP systolic 90–126; BP diastolic 50–63
[2021-08-20] MEDS: CIPROFLOXACIN 500MG TABLET PO SCH ×2 (05:21→17:43)
[2021-08-20 05:50] LABS: HEMATOCRIT 24.4 % (42.0-52.0); HEMOGLOBIN 8.1 g/dl (13.5-17.5); MEAN CORPUSCULAR HEMOGLOBIN 34.5 pg (27.0-33.0); MEAN CORPUSCULAR HGB CONC 33.2 g/dl (32.0-36.5); MEAN CORPUSCULAR VOLUME 103.8 fl (80.0-96.0); RED BLOOD COUNT 2.35 10^6/uL (4.30-6.10); WHITE BLOOD COUNT 4.1 10^3/uL (4.0-10.0)
[2021-08-20 05:52] LABS: PLATELET COUNT, AUTOMATED 34 10^3/uL (150-450)
[2021-08-20 05:58] LABS: INR 1.74; PROTHROMBIN TIME 20.8 SECONDS (12.7-14.5)
[2021-08-20 05:59] LABS: PARTIAL THROMBOPLASTIN TIME 40.1 SECONDS (25.9-37.0)
[2021-08-20 06:23] LABS: ALBUMIN 2.1 GM/DL (3.2-5.2); ALT/SGPT 62 U/L (12-78); BLOOD UREA NITROGEN 21 MG/DL (7-18); CALCIUM LEVEL 7.7 MG/DL (8.8-10.2); CARBON DIOXIDE LEVEL 24 MEQ/L (21-32); CHLORIDE LEVEL 104 MEQ/L (98-107); CREATININE FOR GFR 1.15 MG/DL (0.70-1.30); GLOMERULAR FILTRATION RATE > 60.0 (>49); GLUCOSE, FASTING 92 MG/DL (70-100); MAGNESIUM LEVEL 1.8 MG/DL (1.8-2.4); POTASSIUM SERUM 4.4 MEQ/L (3.5-5.1); SODIUM LEVEL 134 MEQ/L (136-145); TOTAL PROTEIN 5.1 GM/DL (6.4-8.2)
[2021-08-20] MEDS: FLUTICASONE HFA 44 MCG 10.6GM INHALER (FLOVENT) INH SCH ×2 (07:44→20:11)
[2021-08-20] MEDS: predniSONE 20 MG TAB PO SCH (09:16)
[2021-08-20] MEDS: LACTULOSE 20 GM/30 ML SYRUP UD PO SCH ×3 (09:16→21:03)
[2021-08-20] MEDS: POTASSIUM CHLORIDE 10MEQ SR TABLET PO SCH ×2 (09:17→21:00)
[2021-08-20] MEDS: MIDODRINE 5 MG TAB PO SCH ×3 (09:17→15:52)
[2021-08-20] MEDS: LACTOBACILLUS ACIDOPHILUS CAP (BACID) PO SCH ×2 (09:17→17:43)
[2021-08-20] MEDS: MULTIVITAMINS/MINERALS THERAP 1 TAB PO SCH (09:18)
[2021-08-20] MEDS: THIAMINE 100 MG TAB PO SCH ×2 (09:18→21:04)
[2021-08-20] MEDS: FOLIC ACID 1 MG TAB PO SCH (09:18)
[2021-08-20] MEDS: TAMSULOSIN 0.4 MG CAP PO SCH (09:18)
[2021-08-20] MEDS: SPIRONOLACTONE 25 MG TAB PO SCH (09:18)
[2021-08-20] MEDS: OMEPRAZOLE 20 MG CAP PO SCH (09:18)
--- NOTE | 2021-08-20 13:46 | IPNPDOC ---
Date Seen The patient was seen on 08/20/21. Progress Note SUBJECTIVE: H&H has remained stable, waxes and wanes. Nephrology consulted. Started on octreotide today. Nephrology consulted to help with fluid management. Denies increased abdominal pain, chest pain or shortness of breath. OBJECTIVE: PHYSICAL EXAMINATION: VITAL SIGNS: Please see below General: Sitting up in bed, no acute distress, awake alert oriented x3 Head/Neck/Throat: No JVD thyromegaly or cervical lymphadenopathy trachea midline, mucous membranes moist Lungs: Diminished but clear to auscultation, no wheezing/ rales/ rhonchi Heart: S1-S2 regular rate rhythm, no murmurs/ rubs/ gallops, no carotid bruit GI: Distended, positive bowel sounds in 4 quad, positive splenomegaly, mild tenderness in umbilical area, no rebound guarding no CVA tenderness Integumentary: Jaundiced, multiple bruises on the upper and lower extremities. Excoriation tyler on the lower extremities bilaterally. Extremities: 2+ pitting edema to the sacrum, no cyanosis or clubbing Neuro: No focal deficits, cranial nerves II-XII intact Psych: Mood and affect appropriate LABORATORY DATA, IMAGING STUDIES, MICROBIOLOGY: SEE BELOW ASSESSMENT: 61-year-old male PMH alcoholic liver cirrhosis with portal hyp ertension, left portal vein thrombosis diagnosed August 12, 2021 discharged on Eliquis, recurrent ascites, grade 1 esophageal varices, portal hypertensive gastropathy, congestive heart failure with preserved ejection fraction and grade 1 left ventricular diastolic dysfunction, chronic kidney disease stage III, hypertension, obesity BMI of 34.5 admitted for acute decompensated alcoholic liver cirrhosis with recurrent ascites. PLAN: Acute decompensated alcoholic liver cirrhosis with recurrent ascites, hx of grade 1 esophageal varices -AAOx3 -Paracentesis done today, 4.1 L of fluid taken off with improvement of abdominal discomfort on 08/19/21 -S/p albumin x 5 -MELD score 24, bili has been high (fluctuates and appears to be close to what it was like previously when discharged) -Mild umbilical pain on exam -Case discussed with GI last admission, decision was made to follow up as o/p after discharge then. -AST/ALT, INR stable -No infection suspected on ascites fluid but cultures still pending. Low PMNs on ascites fluid testing so unlikely SBP; However, high risk with cirrhosis and ? GI bleed with occult blood +. -Stopped lasix drip, heparin gtt. No anticoagulation with occult + stool -C/w spironolactone, ciprofloxacin BID, lactulose TID, octreotide, PPI IV, xifaxan BID, midodrine. -Nephrology consulted to help with fluid management in setting of hypotension. -Reaching out to [facility] Hepatology team (has seen Dr. Presley in past) to discuss suggestions of care for patient. No GI available at our facility at this time. Acute on chronic anemia cannot r/o GI bleed -Hx of known esophageal varices, Grade 1- seen on endoscopy Jun 2020 -H/H 7.6/22 on 08/20/21, H/H shown some improvement since then- possibly dilutional?, H/H waxing and waning -Occult blood + with dark stools at times -No overt bleeding seen, HR wnl, BP soft -Stopped heparin gtt and would recommend NOT RESTARTING anticoagulation now or at discharge for this patient -Monitor closely with tele, CBC Q12H, type and screen. -If s/s worsen, make NPO -No surgery to scope (does not do banding and does not scope known esophageal varices patients- discussed with Dr. Snyder, general surgery). No GI here or convention services manager to do endoscopy to assess for varices bleeding. -Hope to discuss with Dr. 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 Chronic thrombocytopenia 2/2 to liver disease -PLTs 34, waxes and wanes low -Platelets to be transfused today due to ? 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 -Holding anticoagulation Chronic hypotension in the setting of decompensated liver cirrhosis -Stopped lasix gtt -C/w midodrine 3 times daily -At this time, not suspecting sepsis/septic shock or infection as cause. On empiric abx for SBP. -Tele HFpEF without exacerbation -Chest x-ray without edema vascular congestion. -Strict I's and O's Daily weights Asthma, compensated -RA, no SOB -C/w home inhalers Obesity BMI of 34.5 Most likely due to fluid overload due to liver cirrhosis. CODE STATUS: Full code DVT prophylaxis: Teds/SCD DISPOSITION: No GI to consult, surgery cannot do endoscopy to assess esophageal varices. Reaching out to [facility] Hepatology today- hopefully will get call back. Will also try calling [facility] to see what their GI specialists suggest. Full Code. VS, I&O, 24H, Fishbone Vital Signs/I&O Vital Signs Date Time Temp Pulse Resp B/P (MAP) Pulse Ox O2 Delivery O2 Flow Rate FiO2 08/20/21 12:33 98.1 64 16 126/61 (82) 96 Room Air I&O- Last 24 Hours up to 6 AM 08/20/21 06:00 Intake Total 3040.0 ml Output Total 4650 ml Balance -1610.0 ml Laboratory Data 24H LABS Laboratory Tests 2 08/19/21 15:00: Body Fluid Specific [place] 1.006, Body Fluid WBC (Auto) 44H, Body Fluid RBC (Auto) 5, Body Fluid Mononuclear Cells % Auto 86.4H, Fluid Polymorphonuclear Cell % Auto 13.6H, Body Fluid Glucose Source PERITONEAL, Body Fluid Glucose 110, Body Fluid Protein Source PERITONEAL, Body Fluid Total Protein 0.3, Body Fluid Albumin Source PERITONEAL, Body Fluid Albumin 0.1, Peritoneal Fluid Source PERITONEAL, Peritoneal Fluid Color PALE YELLOW, Peritoneal Fluid Appearance HAZY 08/20/21 05:27: Nucleated Red Blood Cells % (auto) 0.0, Immature Platelet Fraction 5.0, Prothrombin Time 20.8H, Prothromb Time International Ratio 1.74, Activated Partial Thromboplast Time 40.1H, Anion Gap 6L, Glomerular Filtration Rate > 60.0, Calcium Level 7.7L, Magnesium Level 1.8, Total Bilirubin 6.0H, Aspartate Amino Transf (AST/SGOT) 68H, Alanine Aminotransferase (ALT/SGPT) 62, Alkaline Phosphatase 170H, Total Protein 5.1#L, Albumin 2.1#L, Albumin/Globulin Ratio 0.7 CBC/BMP Laboratory Tests 08/20/21 05:27 Microbiology Microbiology 08/19/21 Fungal Smear, Received Pending 08/19/21 Fungal Culture, Received Pending 08/19/21 Anaerobic Culture, Received Pending 08/19/21 Gram Stain, Received Pending 08/19/21 Body Fluid Culture, Received Pending 08/19/21 Stool Occult Blood (ROGER) - Final, Complete 08/18/21 Urine Culture - Final, Complete 08/18/21 Blood Culture - Preliminary, Resulted No growth after 24 hours . All specim... 08/18/21 Blood Culture - Preliminary, Resulted No growth after 24 hours . All specim... Martha Arevalo MD Aug 20, 2021 13:46
[2021-08-20] MEDS: OCTREOTIDE ACETATE 1,200 MCG in NS 238.8 ML IV SCH (14:47)
[2021-08-20] MEDS: MORPHINE 2 MG/ML 1ML VIAL (J2270) IV PRN ×2 (15:53→23:59)
[2021-08-20 18:22] LABS: HEMATOCRIT 23.8 % (42.0-52.0); HEMOGLOBIN 8.1 g/dl (13.5-17.5); MEAN CORPUSCULAR HEMOGLOBIN 35.4 pg (27.0-33.0); MEAN CORPUSCULAR VOLUME 103.9 fl (80.0-96.0); RED BLOOD COUNT 2.29 10^6/uL (4.30-6.10); WHITE BLOOD COUNT 3.1 10^3/uL (4.0-10.0)
[2021-08-20 18:23] LABS: PLATELET COUNT, AUTOMATED 30 10^3/uL (150-450)
[2021-08-20] MEDS: PANTOPRAZOLE 40MG VIAL (C9113 PER 1) IV SCH (21:04)
[2021-08-21] VITALS: BP 113/69
[2021-08-21 04:00] VITALS: BP 102/68
[2021-08-21 05:32] LABS: HEMATOCRIT 23.9 % (42.0-52.0); HEMOGLOBIN 7.9 g/dl (13.5-17.5); MEAN CORPUSCULAR HEMOGLOBIN 34.8 pg (27.0-33.0); MEAN CORPUSCULAR HGB CONC 33.1 g/dl (32.0-36.5); MEAN CORPUSCULAR VOLUME 105.3 fl (80.0-96.0); RED BLOOD COUNT 2.27 10^6/uL (4.30-6.10); WHITE BLOOD COUNT 4.6 10^3/uL (4.0-10.0)
[2021-08-21 05:37] LABS: PLATELET COUNT, AUTOMATED 33 10^3/uL (150-450)
[2021-08-21 05:40] LABS: INR 1.69; PROTHROMBIN TIME 20.3 SECONDS (12.7-14.5)
[2021-08-21 05:41] LABS: PARTIAL THROMBOPLASTIN TIME 38.5 SECONDS (25.9-37.0)
[2021-08-21 06:08] LABS: ALT/SGPT 61 U/L (12-78); BILIRUBIN,TOTAL 5.4 MG/DL (0.2-1.0); BLOOD UREA NITROGEN 18 MG/DL (7-18); CALCIUM LEVEL 7.6 MG/DL (8.8-10.2); CARBON DIOXIDE LEVEL 20 MEQ/L (21-32); CHLORIDE LEVEL 107 MEQ/L (98-107); CREATININE FOR GFR 1.19 MG/DL (0.70-1.30); GLOMERULAR FILTRATION RATE > 60.0 (>49); GLUCOSE, FASTING 167 MG/DL (70-100); MAGNESIUM LEVEL 1.9 MG/DL (1.8-2.4); POTASSIUM SERUM 4.8 MEQ/L (3.5-5.1); SODIUM LEVEL 133 MEQ/L (136-145); TOTAL PROTEIN 5.4 GM/DL (6.4-8.2)
[2021-08-21] MEDS: CIPROFLOXACIN 500MG TABLET PO SCH ×2 (06:10→17:17)
[2021-08-21] MEDS: LACTULOSE 20 GM/30 ML SYRUP UD PO SCH ×3 (08:00→21:41)
[2021-08-21] MEDS: PANTOPRAZOLE 40MG VIAL (C9113 PER 1) IV SCH ×2 (08:00→21:40)
[2021-08-21] MEDS: LACTOBACILLUS ACIDOPHILUS CAP (BACID) PO SCH ×2 (08:02→17:17)
[2021-08-21] MEDS: SPIRONOLACTONE 25 MG TAB PO SCH (08:02)
[2021-08-21] MEDS: THIAMINE 100 MG TAB PO SCH (08:02)
[2021-08-21] MEDS: predniSONE 20 MG TAB PO SCH (08:02)
[2021-08-21] MEDS: TAMSULOSIN 0.4 MG CAP PO SCH (08:02)
[2021-08-21] MEDS: MIDODRINE 5 MG TAB PO SCH ×3 (08:02→15:48)
[2021-08-21] MEDS: MULTIVITAMINS/MINERALS THERAP 1 TAB PO SCH (08:02)
[2021-08-21] MEDS: FOLIC ACID 1 MG TAB PO SCH (08:02)
[2021-08-21] MEDS: POTASSIUM CHLORIDE 10MEQ SR TABLET PO SCH ×2 (08:22→21:00)
[2021-08-21 08:44] VITALS: BP 113/73
[2021-08-21] MEDS: FLUTICASONE HFA 44 MCG 10.6GM INHALER (FLOVENT) INH SCH ×2 (09:04→18:21)
--- NOTE | 2021-08-21 13:00 | CR ---
CONSULTATION DATE: 08/21/2021 REFERRING PHYSICIAN: YUE CASTRO MD REASON FOR CONSULTATION: REASON FOR CONSULTATION: To assist in the management of fluids and kidney disease. HISTORY OF PRESENT ILLNESS: Mr. Okeefe is a 61-year-old gentleman with known history of alcoholic liver cirrhosis, portal hypertension, left portal vein thrombosis and recurrent ascites. He was discharged from the hospital on August 12 on Eliquis and he returned on August 18 with 15 pounds of weight gain. He was admitted and a Nephrology consultation was requested yesterday. Patient is seen this morning. Patient has a known history of esophageal varices and portal hypertensive gastropathy in addition to diastolic congestive heart failure. He did have a paracentesis done yesterday and about 4 liters of fluid was drained. PAST MEDICAL HISTORY: 1. Alcoholic cirrhosis with recurrent ascites, thrombocytopenia, complicated with esophageal varices and portal vein thrombosis. 2. History of portal hypertensive gastropathy. 3. 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 4. History of diastolic congestive heart failure. 5. History of internal hemorrhoids. 6. History of hypertension. 7. History of CKD. 8. History of anemia. 9. History of recurrent hypotension lately requiring Midodrine. PAST SURGICAL HISTORY: 1. Multiple paracentesis procedures due to decompensated liver cirrhosis, bilateral inguinal hernia surgery, right knee arthroscopy and left fourth finger tendon repair. PERSONAL AND SOCIAL HISTORY: Patient reports that his last drink was two years ago and he denies any smoking or recreational drug use. The last use of marijuana was late June. FAMILY HISTORY: Father with coronary artery disease and brother with brain aneurysm. MEDICATIONS: The patient was discharged on Eliquis 5 mg b.i.d. last time, Cipro 500 mg b.i.d., Flovent inhaler one puff b.i.d., Folic Acid 1 mg daily, Lactulose 15 mg t.i.d., multivitamin one tablet daily, omeprazole 40 mg daily, potassium chloride 10 mEq daily, Spironolactone 25 mg daily, Tamsulosin 0.4 mg daily and Thiamine 100 mg daily. ALLERGIES: Patient has no known drug allergies. REVIEW OF SYSTEMS: At present, patient is feeling much better and still abdominal discomfort and pain persists. He denies any nausea or vomiting, black colored stool, rectal bleeding, fever or chills. Ears, nose and throat are unremarkable. Cardiovascular system is significant for edema and weight gain. He denies any chest pain. Respiratory system is negative for cough or hemoptysis. GI system is significant for cirrhosis of liver with recurrent ascites. He has a known history of esophageal varices but no black colored stool or bright-red blood in the stool reported. His stool tested positive for occult blood. system is negative for dysuria or hematuria. Musculoskeletal system is significant for some leg edema and abdominal bloating. Hematological system is significant for anemia and thrombocytopenia. Psychosocial system is negative for depression or anxiety. Endocrine system is negative for diabetes or thyroid problems. GI system is also significant for portal vein thrombosis for which he has been anticoagulated. Skin is negative for rash or ulcers. Neurological system is negative for seizures or stroke. PHYSICAL EXAMINATION: GENERAL: Patient is awake and alert and without any acute distress at the time of my visit this morning. VITAL SIGNS: Temperature 97.6 degrees Fahrenheit, heart rate is 68 per minute and respiratory rate is 18 per minute. Blood pressure 112/72 mmHg and oxygen saturation 98% on room air. HEAD: Atraumatic. NECK: Supple. JVD is not abnormally elevated. Oral mucosa is moist and healthy. EYES: Pupils equal and reactive to light. Sclerae anicteric. NOSE AND THROAT: Unremarkable. HEART: Irregular rhythm but no pericardial friction rub. LUNGS: Slightly diminished breath sounds at bases. ABDOMEN: Mildly tender and moderately distended with ascites. Bowel sounds are present. EXTREMITIES: Without cyanosis or clubbing. He does have 1+ ankle edema. NEUROLOGIC: He is awake and at his baseline mentation without any focal neurological deficit at present. LABORATORY DATA: Today's labs showed a WBC count of 4.6, hemoglobin 7.9 and hematocrit 23.9, platelets are only 33,000. Sodium is 133, potassium is 4.8, CO2 20, BUN 18 and creatinine 1.19. Glucose is 167 and calcium is 7.6. Total protein is 5.4 and albumin is 2.0. Bilirubin is 5.4, AST is 78 and ALT 61. PROBLEMS: 1. Cirrhosis of liver with recurrent ascites. Patient already had a paracentesis done and I would recommend to continue with Spironolactone 25 mg once a day for now. 2. Hyponatremia, mild hyponatremia is related to liver problems and likely to improve. No specific intervention is needed at present. 3. Acute kidney injury superimposed on chronic kidney disease. Kidney function is stable at present with minimal change. I do not feel his kidney problem is significant at present. He does not seem to have hepatorenal syndrome as of yet. 4. Anemia with blood loss. Patient has a known history of esophageal varices and his stool has tested positive for occult blood. He is likely to require transfusions. At present, he is off his anticoagulation. 5. Hypotension, patient has chronic low blood pressure and has been on Midodrine which should be continued. 6. History of hepatic encephalopathy. Patient is alert at present without any encephalopathy features. He should continue with chronic lactulose therapy. Thank you for involving me in the care of Mr. Okeefe. I will follow him along with you.
[2021-08-21 13:06] VITALS: BP 137/76
[2021-08-21] MEDS ORDERED: LIDOCAINE 1% MDV 20ML VIAL As Ordered ONE (14:08)
--- NOTE | 2021-08-21 15:03 | IPNPDOC ---
Date Seen The patient was seen on 08/21/21. Progress Note SUBJECTIVE: Hgb dropped slightly, no increased s/s of bleeding. PICC to be placed today because octreotide had to be stopped due to IV lost. F/u nephrology suggestions. Attempted to reach out to [facility] hepatology, no call back but left message at [phone], number given to me by the patient's daughter. Denies increased abdominal pain, chest pain or shortness of breath. OBJECTIVE: PHYSICAL EXAMINATION: VITAL SIGNS: Please see below General: Sitting up in bed, no acute distress, awake alert oriented x3 Head/Neck/Throat: No JVD thyromegaly or cervical lymphadenopathy trachea midline, mucous membranes moist Lungs: Diminished but clear to auscultation, no wheezing/ rales/ rhonchi Heart: S1-S2 regular rate rhythm, no murmurs/ rubs/ gallops, no carotid bruit GI: Distended, positive bowel sounds in 4 quad, positive splenomegaly, mild tenderness in umbilical area- slightly improved, no rebound guarding no CVA tenderness Integumentary: Jaundiced, multiple bruises on the upper and lower extremities. Excoriation tyler on the lower extremities bilaterally. Extremities: 2+ pitting edema to the sacrum, no cyanosis or clubbing Neuro: No focal deficits, cranial nerves II-XII intact Psych: Mood and affect appropriate LABORATORY DATA, IMAGING STUDIES, MICROBIOLOGY: SEE BELOW ASSESSMENT: 61-year-old male PMH alcoholic liver cirrhosis with portal hypertension, left portal vein thrombosis diagnosed August 12, 2021 discharged on Eliquis, recurrent ascites, grade 1 esophageal varices, portal hypertensive gastropathy, congestive heart failure with preserved ejection fraction and grade 1 left ventricular diastolic dysfunction, chronic kidney disease stage III, hypertension, obesity BMI of 34.5 admitted for acute decompensated alcoholic liver cirrhosis with recurrent ascites. PLAN: Acute decompensated alcoholic liver cirrhosis with recurrent ascites, hx of grad e 1 esophageal varices -AAOx3 -Paracentesis done today, 4.1 L of fluid taken off with improvement of abdominal discomfort on 08/19/21 -S/p albumin x 5 -MELD score 24, bili has been high (fluctuates and appears to be close to what it was like previously when discharged) -Mild umbilical pain on exam -Case discussed with GI last admission, decision was made to follow up as o/p after discharge then. -AST/ALT, INR stable -No infection suspected on ascites fluid but cultures still pending. Low PMNs on ascites fluid testing so unlikely SBP; However, high risk with cirrhosis and ? GI bleed with occult blood +. -Stopped lasix drip, heparin gtt. No anticoagulation with occult + stool -C/w spironolactone, ciprofloxacin BID, lactulose TID, octreotide, PPI IV, xifaxan BID, midodrine. -Nephrology consulted to help with fluid management in setting of hypotension. -Reaching out to [facility] Hepatology team (has seen Dr. Presley in past) again today, will try several different numbers today. Looking to speak with provider to discuss patient's case- known to heir service. Would like to discuss suggestions of care for patient. No GI available at our facility at this time. Acute on chronic anemia cannot r/o GI bleed -Hx of known esophageal varices, Grade 1- seen on endoscopy Jun 2020 and internal hemorrhoids -H/H 7.05/15 on 08/21/21, H/H waxing and waning -Occult blood +, dark stools have improved being off heparin gtt and eliquis -No overt bleeding seen, HR wnl, BP soft always -Stopped heparin gtt and would recommend NOT RESTARTING anticoagulation now or at discharge for this patient -Monitor closely with tele, CBC Q12H, type and screen. -If s/s worsen, make NPO -No surgery to scope (does not do banding and does not scope known esophageal varices patients- discussed with Dr. Snyder, general surgery). No GI here or investor relations specialist to do endoscopy to assess for varices bleeding. -Hope to discuss with Dr. 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 -Holding anticoagulation Chronic hypotension in the setting of decompensated liver cirrhosis -Stopped lasix gtt -C/w midodrine 3 times daily -At this time, not suspecting sepsis/septic shock or infection as cause. On empiric abx for SBP. -Tele HFpEF without exacerbation -Chest x-ray without edema vascular congestion. -Strict I's and O's Daily weights Asthma, compensated -RA, no SOB -C/w home inhalers Obesity BMI of 34.5 CODE STATUS: Full code DVT prophylaxis: Teds/SCD DISPOSITION: Will again be reaching out to [facility] Hepatology this afternoon, trying several different numbers on file. They refused a potential transfer of patient based on his insurance both the last hospitalization and this hospitalization as well. Tried calling [facility] to see what their GI specialists suggest but they have no beds. Updated patient's daughter Eli on 08/20/21 at length. Full Code. VS, I&O, 24H, Fishbone VS, I&O, 24H, Fishbone Vital Signs/I&O Vital Signs Date Time Temp Pulse Resp B/P (MAP) Pulse Ox O2 Delivery O2 Flow Rate FiO2 08/21/21 08:44 97.6 65 18 113/73 (86) 98 Room Air I&O- Last 24 Hours up to 6 AM 08/21/21 05:59 Intake Total 1115.0 ml Output Total 1000 ml Balance 115.0 ml Laboratory Data 24H LABS Laboratory Tests 2 08/20/21 17:59: Nucleated Red Blood Cells % (auto) 0.0 08/21/21 05:06: Nucleated Red Blood Cells % (auto) 0.0, Prothrombin Time 20.3H, Prothromb Time International Ratio 1.69, Activated Partial Thromboplast Time 38.5H, Anion Gap 6L, Glomerular Filtration Rate > 60.0, Calcium Level 7.6L, Magnesium Level 1.9, Total Bilirubin 5.4H, Aspartate Amino Transf (AST/SGOT) 78H, Alanine Am inotransferase (ALT/SGPT) 61, Alkaline Phosphatase 165H, Total Protein 5.4L, Albumin 2.0L, Albumin/Globulin Ratio 0.6 CBC/BMP Laboratory Tests 08/20/21 17:59 08/21/21 05:06 Microbiology Microbiology 08/19/21 Fungal Smear, Received Pending 08/19/21 Fungal Culture, Received Pending 08/19/21 Anaerobic Culture - Final, Complete 08/19/21 Gram Stain - Final, Complete 08/19/21 Body Fluid Culture - Final, Complete 08/19/21 Stool Occult Blood (ROGER) - Final, Complete 08/18/21 Urine Culture - Final, Complete 08/18/21 Blood Culture - Preliminary, Resulted No Growth after 72 hours. All specime... 08/18/21 Blood Culture - Preliminary, Resulted No Growth after 72 hours. All specime... Martha Arevalo MD Aug 21, 2021 15:03
[2021-08-21] MEDS: OCTREOTIDE ACETATE 1,200 MCG in NS 238.8 ML IV SCH (15:47)
[2021-08-21 16:31] VITALS: BP 114/67
--- NOTE | 2021-08-21 16:50 | REP ---
INDICATION: poor access.. COMPARISON: None. TECHNIQUE: The procedure was performed under the direct supervision of Dr. Chung. The risks and benefits of the procedure were explained to the patient and informed consent was obtained. The right basilic vein was localized using ultrasound guidance. The skin was prepped and draped in a sterile fashion. 1 mL of 1% lidocaine was used as a local anesthetic. Using ultrasound guidance the basilic vein was cannulated and a 0.018 guidewire was inserted and advanced to the SVC using fluoroscopic guidance, and last image hold technology. The needle was removed and a 5.5 Irish dilator and peel-away sheath was inserted over the guide wire. A 5.5 Irish dual lumen catheter was cut to length of 43 cm. The dilator was removed and the catheter was inserted over the guide wire with the tip ending in the SVC. The peel-away sheath was removed and the catheter was flushed with heparinized saline as per Hospital protocol. The catheter was affixed to the skin and a sterile dressing was applied. Estimated blood loss: Less than 1 mL The patient tolerated the procedure well and there were no immediate complications. 0.1 minutes of fluoro time was utilized for this procedure. FINDINGS: None IMPRESSION: PICC line insertion right basilic vein with the tip ending in the SVC. <Electronically signed by Papito Daniels > 08/21/21 [id number] <Electronically signed by Eliezer Chung > 08/21/21 [id number]
[2021-08-21 18:19] LABS: HEMATOCRIT 24.9 % (42.0-52.0); HEMOGLOBIN 8.1 g/dl (13.5-17.5); MEAN CORPUSCULAR HEMOGLOBIN 35.1 pg (27.0-33.0); MEAN CORPUSCULAR HGB CONC 32.5 g/dl (32.0-36.5); MEAN CORPUSCULAR VOLUME 107.8 fl (80.0-96.0); RED BLOOD COUNT 2.31 10^6/uL (4.30-6.10); WHITE BLOOD COUNT 4.6 10^3/uL (4.0-10.0)
[2021-08-21 18:20] LABS: PLATELET COUNT, AUTOMATED 38 10^3/uL (150-450)
[2021-08-21 20:00] VITALS: BP 132/69
[2021-08-21] MEDS: MORPHINE 2 MG/ML 1ML VIAL (J2270) IV PRN (21:53)
[2021-08-22] VITALS: BP 102/69
[2021-08-22 04:00] VITALS: BP 106/61
[2021-08-22 06:38] LABS: HEMATOCRIT 24.2 % (42.0-52.0); MEAN CORPUSCULAR HEMOGLOBIN 35.6 pg (27.0-33.0); MEAN CORPUSCULAR HGB CONC 33.1 g/dl (32.0-36.5); MEAN CORPUSCULAR VOLUME 107.6 fl (80.0-96.0); RED BLOOD COUNT 2.25 10^6/uL (4.30-6.10); WHITE BLOOD COUNT 5.9 10^3/uL (4.0-10.0)
[2021-08-22 06:41] LABS: PLATELET COUNT, AUTOMATED 38 10^3/uL (150-450)
[2021-08-22 06:48] LABS: INR 1.75; PROTHROMBIN TIME 20.9 SECONDS (12.7-14.5)
[2021-08-22 06:49] LABS: PARTIAL THROMBOPLASTIN TIME 39.3 SECONDS (25.9-37.0)
[2021-08-22 07:06] LABS: ALBUMIN 1.9 GM/DL (3.2-5.2); ALT/SGPT 50 U/L (12-78); BILIRUBIN,TOTAL 4.4 MG/DL (0.2-1.0); BLOOD UREA NITROGEN 16 MG/DL (7-18); CALCIUM LEVEL 6.8 MG/DL (8.8-10.2); CARBON DIOXIDE LEVEL 23 MEQ/L (21-32); CHLORIDE LEVEL 112 MEQ/L (98-107); CREATININE FOR GFR 0.94 MG/DL (0.70-1.30); GLOMERULAR FILTRATION RATE > 60.0 (>49); GLUCOSE, FASTING 82 MG/DL (70-100); MAGNESIUM LEVEL 1.8 MG/DL (1.8-2.4); POTASSIUM SERUM 3.7 MEQ/L (3.5-5.1); SODIUM LEVEL 139 MEQ/L (136-145); TOTAL PROTEIN 4.5 GM/DL (6.4-8.2)
[2021-08-22] MEDS ORDERED: MIDO5TA PO (07:16)
[2021-08-22] MEDS ORDERED: XIFA200T2 PO (07:16)
[2021-08-22] MEDS ORDERED: RISATAB3 PO (07:16)
[2021-08-22] MEDS ORDERED: OMEP-221 PO (07:16)
[2021-08-22 07:29] VITALS: BP 99/61
[2021-08-22] MEDS: MIDODRINE 5 MG TAB PO SCH ×2 (07:34→12:35)
[2021-08-22] MEDS: CIPROFLOXACIN 500MG TABLET PO SCH (07:34)
[2021-08-22] MEDS: LACTOBACILLUS ACIDOPHILUS CAP (BACID) PO SCH (07:34)
[2021-08-22] MEDS: FLUTICASONE HFA 44 MCG 10.6GM INHALER (FLOVENT) INH SCH (08:23)
[2021-08-22] MEDS ORDERED: TRAM50TA2 PO (08:48)
[2021-08-22] MEDS: PANTOPRAZOLE 40MG VIAL (C9113 PER 1) IV SCH (08:53)
[2021-08-22] MEDS: MULTIVITAMINS/MINERALS THERAP 1 TAB PO SCH (08:53)
[2021-08-22] MEDS: predniSONE 20 MG TAB PO SCH (08:53)
[2021-08-22] MEDS: LACTULOSE 20 GM/30 ML SYRUP UD PO SCH (08:53)
[2021-08-22] MEDS: TAMSULOSIN 0.4 MG CAP PO SCH (08:53)
[2021-08-22] MEDS: SPIRONOLACTONE 25 MG TAB PO SCH (08:54)
[2021-08-22] MEDS: POTASSIUM CHLORIDE 10MEQ SR TABLET PO SCH (08:54)
[2021-08-22] MEDS: FOLIC ACID 1 MG TAB PO SCH (08:54)
[2021-08-22 12:04] VITALS: BP 109/72
--- NOTE | 2021-08-22 20:01 | DS.PDOC ---
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 Chronic hypotension in the setting of decompensated liver cirrhosis CHF, diastolic dysfunction with preserved ejection fraction, compensated Anemia of chronic disease Asthma, compensated DISCHARGE DIAGNOSES: 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 HISTORY OF PRESENT ILLNESS: 61-year-old male full code with history of alcoholic liver cirrhosis with portal hypertension, left portal vein thrombosis diagnosed August 12, 2021 discharged on Eliquis, recurrent ascites, grade 1 esophageal varices, portal hypertensive gastropathy, congestive heart failure with preserved ejection fraction and grade 1 left ventricular diastolic dysfunction, chronic kidney disease stage III, hypertension, obesity BMI of 34.5, was recently discharged from [facility] on D 2020 with decompensated liver cirrhosis with ascites complicated by renal failure discharge and spironolactone 25 mg daily presents again today with weight gain abdominal distention slight shortness of breath with exertion, without nausea, vomiting, fever, chills, bright red blood per rectum, coffee- ground emesis, hematemesis, melena, black tarry stools, or confusion. Patient has not noticed if he was increasingly jaundiced, but bilirubin on admission today is 7.5 meld score of 26 and discriminant function of 51.7. Covid negative. Chest x-ray negative, CT abdomen pelvis: Ascites liver cirrhosis with portal hypertension, small splenic infarct, old. Hospitalist was asked to admit for decompensated liver cirrhosis with recurrent ascites portal hypertension, on Eliquis for portal venous thrombosis, with hypotension status post midodrine and banana bag infusion. HOSPITAL COURSE: During the patient's hospitalization the following issues were treated/addressed: Acute decompensated alcoholic liver cirrhosis with recurrent ascites, hx of grade 1 esophageal varices -AAOx3 -Paracentesis done08/19/21, 4.1 L of fluid taken off with improvement of abdominal discomfort -S/p albumin x 5 -MELD score 24, bili has been high (fluctuates and appears to be close to what it was like previously when discharged) -Case discussed with GI last admission, decision was made to follow up as o/p after discharge then. -AST/ALT, INR stable -No infection suspected on ascites fluid. Low PMNs on ascites fluid testing so unlikely SBP; However, high risk with cirrhosis and ? GI bleed with occult blood +. -Stopped lasix drip, heparin gtt on admission. No anticoagulation with occult + stool -Treated with and discharged on spironolactone, ciprofloxacin BID, lactulose TID, PPI, midodrine. -Nephrology was consulted to help with fluid management in setting of hypotension. -Reached out to [facility] Hepatology team (has seen Dr. Presley in past) multiple times to update him and discuss case. No GI was available at our facility this hospitalization. Acute on chronic anemia cannot r/o GI bleed -Hx of known portal vein thrombosis on AC as o/p, esophageal varices, Grade 1 seen on endoscopy Jun 2020 and internal hemorrhoids -Hgb >8 for several days -Stopped heparin gtt -After admission occult blood +, dark stools but have resolved improved being off heparin gtt and eliquis -No overt bleeding seen, HR wnl, BP soft always -Monitor closely CBC outpatient. -No surgery to scope (does not do banding and does not scope known esophageal varices patients- discussed with Dr. Snyder, general surgery). No GI here or hospital admissions officer to do endoscopy to assess for varices bleeding. -At this time believe, if a bleed was present, it has stopped and can f/u as o/p with scope by GI-to see 08/08/21 -PPI BID. Will NOT RESTART anticoagulation at discharge for this patient. Would recommend discussion with GI and PCP before restarting and likely AFTER endoscope to assess varices Chronic thrombocytopenia 2/2 to liver disease -PLTs 38, waxes and wanes but has shown improvement over past several days -Recommend checking CBC as o/p Hypomagnesemia-resolved -Mg wnl Chronic kidney disease stage III 2/2 to decompensated liver cirrhosis -Cr improved, currently wnl -Has received albumin transfusions and midodrine to increase mean arterial pressure -Nephrology was consulted Portal vein thrombosis -Dx on recent hospitalization -GI recommended anticoagulation at discharge last admission -Stopping all anticoagulation now with occult blood +, f/u with PCP/GI to restart outpatient 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 -Holding anticoagulation Chronic hypotension in the setting of decompensated liver cirrhosis -C/w midodrine 3 times daily -At this time, not suspecting sepsis/septic shock or infection as cause. On empiric abx for SBP. -Tele HFpEF without exacerbation -Chest x-ray without edema vascular congestion. Asthma, compensated -RA, no SOB -C/w home inhalers Obesity BMI of 34.5 DISCHARGE MEDICATIONS: Please see below. ALLERGIES: Please see below. PHYSICAL EXAMINATION ON DISCHARGE: VITAL SIGNS: Please see below General: Sitting up in bed, no acute distress, awake alert oriented x3 Head/Neck/Throat: No JVD thyromegaly or cervical lymphadenopathy trachea midline, mucous membranes moist Lungs: Diminished but clear to auscultation, no wheezing/ rales/ rhonchi Heart: S1-S2 regular rate rhythm, no murmurs/ rubs/ gallops, no carotid bruit GI: Distended, positive bowel sounds in 4 quad, positive splenomegaly, mild tenderness in umbilical area- slightly improved, no rebound guarding no CVA tenderness Integumentary: Jaundiced, multiple bruises on the upper and lower extremities. Excoriation tyler on the lower extremities bilaterally. Extremities: 2+ pitting edema to the sacrum, no cyanosis or clubbing Neuro: No focal deficits, cranial nerves II-XII intact Psych: Mood and affect appropriate LABORATORY DATA: Please see below. IMAGING: See chart ACTIVITY: As tolerated DIET: 2 gm sodium DISPOSITION: 01 Home, Self-Care. DISCHARGE INSTRUCTIONS /ITEMS TO FOLLOWUP ON ON OUTPATIENT: 1. Please follow up closely with your primary care provider and GI specialist. We attempted multiple times, left multiple messages for [facility] without any response back. In your best interests, please get ahold of them to explain your recent back to back admissions for decompensating liver cirrhosis and the need to follow up with them again sooner than later. 2. Due to high risk of bleeding, your anticoagulation for the diagnosed portal vein thrombosis was stopped. There was some suspicion of ? bleed, but due to improvement in all blood numbers, no further workup was done. Please discuss with both your GI provider and PCP if and when to restart. 3. Per nephrology, you will likely need weekly paracentesis, so if your abdomen should become increasingly distended, tender please get seen by medical professional. the paracentesis this hospital stay was done on 08/19/21 and took off 4.1 L fluid . 4. If any increased rectal or oral bleeding, darker than normal stools should occur let a medical professional know immediately. DISCHARGE CONDITION: Stable TIME SPENT ON DISCHARGE: 35 minutes. Vital Signs/I&Os Vital Signs Date Time Temp Pulse Resp B/P (MAP) Pulse Ox O2 Delivery O2 Flow Rate FiO2 08/22/21 12:04 97.1 71 19 109/72 (84) 98 Room Air I&O- Last 24 Hours up to 6 AM 08/22/21 06:00 Intake Total 1920 ml Output Total 0 ml Balance 1920 ml Laboratory Data Labs 24H Laboratory Tests 2 08/22/21 06:00: Nucleated Red Blood Cells % (auto) 0.0, Prothrombin Time 20.9H, Prothromb Time International Ratio 1.75, Activated Partial Thromboplast Time 39.3H, Anion Gap 4L, Glomerular Filtration Rate > 60.0, Calcium Level 6.8L, Magnesium Level 1.8, Total Bilirubin 4.4H, Aspartate Amino Transf (AST/SGOT) 52H, Alanine Aminotransferase (ALT/SGPT) 50, Alkaline Phosphatase 129H, Total Protein 4.5L, Albumin 1.9L, Albumin/Globulin Ratio 0.7 CBC/BMP Laboratory Tests 08/22/21 06:00 Microbiology Microbiology 08/19/21 Fungal Smear, Received Pending 08/19/21 Fungal Culture, Received Pending 08/19/21 Anaerobic Culture - Final, Complete 08/19/21 Gram Stain - Final, Complete 08/19/21 Body Fluid Culture - Final, Complete 08/19/21 Stool Occult Blood (ROGER) - Final, Complete 08/18/21 Urine Culture - Final, Complete 08/18/21 Blood Culture - Preliminary, Resulted No Growth after 72 hours. All specime... 08/18/21 Blood Culture - Preliminary, Resulted No Growth after 72 hours. All specime... Discharge Medications Scheduled Ciprofloxacin HCl (Cipro) 500 Mg Tablet, 500 MG PO BID, (Reported) Fluticasone Propionate (Flovent Hfa) 44 Mcg/Act Aer.w.adap, 1 PUFF INH BID, (Reported) Folic Acid (Folic Acid) 1 Mg Tablet, 1 MG PO DAILY, (Reported) L.acidoph/L.bulg/B.bif/S.therm (Kailey-Bid Caplet) 1 Each Tablet, 1 EA PO BIDWM Lactulose (Lactulose) 10 Gm/15 Ml Solution, 15 ML PO TID, (Reported) Methyl Salicylate/Menth/Camph (Bengay Ultra Strength Cream) 57 Gm Cream..g., 1 APPFUL TOP DAILY, (Reported) APPLY TO BILAT KNEES Midodrine HCl (Midodrine HCl) 5 Mg Tablet, 10 MG PO 08,12,16 Multivitamin (Multivitamins) 1 Each Tablet, 1 TAB PO DAILY, (Reported) Omeprazole (Omeprazole) 40 Mg Capsule.dr, 40 MG PO BID Potassium Chloride (Potassium Chloride) 10 Meq Tablet.er, 10 MEQ PO DAILY, (Reported) Spironolactone (Spironolactone) 25 Mg Tablet, 25 MG PO DAILY, (Reported) Tamsulosin Hcl (Tamsulosin HCl) 0.4 Mg Capsule, 0.4 MG PO DAILY, (Reported) Thiamine HCl (Thiamine HCl) 100 Mg Tablet, 100 MG PO DAILY, (Reported) Scheduled PRN Albuterol Sulfate (Ventolin Hfa) 18 Gm Hfa.aer.ad, 2 PUFFS INH QID PRN for SOB/WHEEZING, (Reported) Tramadol HCl (Tramadol HCl) 50 Mg Tablet, 50 MG PO Q8HP PRN for pain Allergies Coded Allergies: POLLEN (Verified Allergy, Unknown, 05/22/20) Martha Arevalo MD Aug 22, 2021 20:01
== END 2021-08-22 13:03 | disposition home or self-care (01) | DRG 433 ==
LOC: M ED 12:07 → M ED INP 16:13 → ENRESERV 18:12 → M PCU 18:35
PROVIDERS: ADMIT General Practice; ATTEND Internal Medicine
PROC: 0W9F3ZZ Drainage of Abdominal Wall, Percutaneous Approach (ICD-10-PCS; 2021-08-19)
PROC: 02HV33Z Insertion of Infusion Device into Superior Vena Cava, Percutaneous Approach (ICD-10-PCS; principal; 2021-08-21 15:00)
DX: K70.31 Alcoholic cirrhosis of liver with ascites (principal); K76.6 Portal hypertension; I50.32 Chronic diastolic (congestive) heart failure; E87.1 Hypo-osmolality and hyponatremia; I82.890 Acute embolism and thrombosis of other specified veins; E83.42 Hypomagnesemia; D69.6 Thrombocytopenia, unspecified; N18.30 Chronic kidney disease, stage 3 unspecified; J45.909 Unspecified asthma, uncomplicated; E66.9 Obesity, unspecified; Z68.34 Body mass index [BMI] 34.0-34.9, adult; R16.1 Splenomegaly, not elsewhere classified; Z79.01 Long term (current) use of anticoagulants; Z79.899 Other long term (current) drug therapy; K64.8 Other hemorrhoids; I95.89 Other hypotension; D50.0 Iron deficiency anemia secondary to blood loss (chronic)

== ENCOUNTER → 2021-09-02 | Outpatient (CLI) | payer MEDICARE ==
[~2021-09-02] MED LIST changes: +CIPR-249 PO; +LOSA100T45 PO; -LOSA100T50 PO; +LOSA25TA13 PO; -LOSA25TA14 PO; +MIDO5TA PO; -MONT10TA10 PO; +MONT10TA97 PO; +RISATAB3 PO; +TRAM50TA2 PO; +XIFA200T2 PO
[2021-09-02 14:06] VITALS: BP 105/61
[2021-09-02 14:16] VITALS: BP 115/68
[2021-09-02 14:22] VITALS: BP 120/66
[2021-09-02 14:32] VITALS: BP 121/67
[2021-09-02 14:39] VITALS: BP 108/58
== END ==
LOC: M IRPRO 13:00
PROVIDERS: ATTEND Internal Medicine Gastroenterology
DX: K70.31 Alcoholic cirrhosis of liver with ascites (principal)
CPT/HCPCS: 49083; 96365; P9047

== ENCOUNTER → 2021-09-06 | Outpatient (CLI) | payer MEDICARE, MEDICAID ==
[~2021-09-06] MED LIST changes: +FLOV50AE INH; -OMEP-221 PO; +OMEP40CA5 PO; +SPIR50TA4 PO; +[UNRECOGNIZED DRUG - OTHER] PO
== END ==
LOC: M LABSMTC 10:55
PROVIDERS: ATTEND Anesthesiology
DX: Z01.812 Encounter for preprocedural laboratory examination (principal); Z20.822 Contact with and (suspected) exposure to COVID-19

== ENCOUNTER → 2021-09-09 | Outpatient (CLI) | payer MEDICARE ==
[2021-09-09 15:51] VITALS: BP 102/74
[2021-09-09 15:58] VITALS: BP 110/60
[2021-09-09 16:09] VITALS: BP 107/58
[2021-09-09 16:17] VITALS: BP 105/58
[2021-09-09 16:25] VITALS: BP 111/58
[2021-09-09 16:32] VITALS: BP 103/60
== END ==
LOC: M IRPRO 14:15
PROVIDERS: ATTEND Internal Medicine Gastroenterology
DX: K70.31 Alcoholic cirrhosis of liver with ascites (principal); Z20.822 Contact with and (suspected) exposure to COVID-19
CPT/HCPCS: 49083; 96365; P9047

== ENCOUNTER 2021-09-11 11:00 | Day surgery (SDC) | payer MEDICARE ==
[~2021-09-11] VITALS: Ht 177.8 cm; Wt 113.8 kg
[~2021-09-11 11:00] MED LIST changes: +NS 1,000 ML IV ONE
[2021-09-11] MEDS ORDERED: fentaNYL 100 MCG/2 ML INJECTION (J3010) As Ordered ONE (12:33)
[2021-09-11] MEDS ORDERED: propofoL 200 MG/20 ML VIAL As Ordered ONE (12:33)
[2021-09-11] MEDS ORDERED: ePHEDrine SULFATE 25 MG/5 ML(5MG/ML) SYRINGE As Ordered ONE (13:00)
[2021-09-11 13:33] VITALS: BP 95/63
== END 2021-09-11 13:41 | disposition home or self-care (01) ==
LOC: M OPP 11:00
PROVIDERS: ATTEND Internal Medicine Gastroenterology
DX: I85.00 Esophageal varices without bleeding (principal); D62 Acute posthemorrhagic anemia; K74.60 Unspecified cirrhosis of liver; Z79.891 Long term (current) use of opiate analgesic; Z79.899 Other long term (current) drug therapy; F17.210 Nicotine dependence, cigarettes, uncomplicated
CPT/HCPCS: 43244; J3010

== ENCOUNTER → 2021-09-16 | Outpatient (CLI) | payer MEDICARE ==
[~2021-09-16] MED LIST changes: -NS 1,000 ML IV ONE
[2021-09-16 15:42] VITALS: BP 104/69
[2021-09-16 15:49] VITALS: BP 103/58
[2021-09-16 15:55] VITALS: BP 109/74
[2021-09-16 16:11] VITALS: BP 104/65
[2021-09-16 16:23] VITALS: BP 107/70
== END ==
LOC: M IRPRO 14:54
PROVIDERS: ATTEND Internal Medicine Gastroenterology
DX: K70.31 Alcoholic cirrhosis of liver with ascites (principal)
CPT/HCPCS: 49083; 96365; P9047

== ENCOUNTER 2021-09-23 11:28 | Observation (INO) | payer MEDICARE, OTHER, SELFPAY ==
[~2021-09-23] VITALS: Ht 177.8 cm; Wt 101.7 kg
[2021-09-23 12:10] LABS: BASO % 0.4 % (0.0-1.0); EOS % 0.7 % (0.0-3.0); HEMATOCRIT 30.5 % (42.0-52.0); HEMOGLOBIN 10.4 g/dl (13.5-17.5); LYMPH # 0.5 10^3/uL (1.5-5.0); MEAN CORPUSCULAR HEMOGLOBIN 34.3 pg (27.0-33.0); MEAN CORPUSCULAR HGB CONC 34.1 g/dl (32.0-36.5); MEAN CORPUSCULAR VOLUME 100.7 fl (80.0-96.0); MONO # 0.6 10^3/uL (0.0-0.8); MONO % 11.9 % (2.0-8.0); NEUTROPHILS # 3.5 10^3/uL (1.5-8.5); NEUTROPHILS % 76.3 % (36.0-66.0); RED BLOOD COUNT 3.03 10^6/uL (4.30-6.10); WHITE BLOOD COUNT 4.6 10^3/uL (4.0-10.0)
[2021-09-23 12:11] LABS: PLATELET COUNT, AUTOMATED 79 10^3/uL (150-450)
[2021-09-23 12:34] LABS: VENOUS HCO3 26.8 MEQ/L (23.0-27.0); VENOUS O2 SATURATION 69.2 % (60.0-80.0); VENOUS PARTIAL PRESSURE CO2 38.4 mmHg (38.0-50.0); VENOUS PARTIAL PRESSURE O2 38.6 mmHg (30.0-50.0); VENOUS PH 7.462 UNITS (7.330-7.430); VENOUS STANDARD HCO3 26.5 MEQ/L
[2021-09-23 12:38] LABS: ACETAMINOPHEN LEVEL < 2.0 UG/ML (10.0-30.0); ALBUMIN 2.7 GM/DL (3.2-5.2); ALT/SGPT 43 U/L (12-78); BILIRUBIN,DIRECT 3.7 MG/DL (0.0-0.2); BILIRUBIN,TOTAL 8.2 MG/DL (0.2-1.0); BLOOD UREA NITROGEN 13 MG/DL (7-18); CALCIUM LEVEL 8.5 MG/DL (8.8-10.2); CARBON DIOXIDE LEVEL 25 MEQ/L (21-32); CHLORIDE LEVEL 95 MEQ/L (98-107); CREATININE FOR GFR 1.32 MG/DL (0.70-1.30); ETHYL ALCOHOL (ETHANOL) < 0.003 % (0.000-0.010); GLOMERULAR FILTRATION RATE 58.7 (>49); GLUCOSE, FASTING 119 MG/DL (70-100); POTASSIUM SERUM 3.1 MEQ/L (3.5-5.1); SALICYLATE LEVEL < 1.7 MG/DL (5.0-30.0); SODIUM LEVEL 131 MEQ/L (136-145); TOTAL PROTEIN 5.9 GM/DL (6.4-8.2)
[2021-09-23 12:39] LABS: OSMOLALITY SERUM 271 MOSM/KG (280-301)
[2021-09-23] MEDS ORDERED: NS IV ONE (12:40)
[2021-09-23] MEDS ORDERED: cefTRIAXone SOD 2 GM in D5W MINI-BAG PLUS 50 ML IV ONE (12:40)
[2021-09-23 12:47] LABS: CK-MB VALUE MASS 1.2 NG/ML (<3.6); MB/CK RELATIVE INDEX 1.13 (< OR =4)
[2021-09-23] MEDS ORDERED: OMEP40CA4 PO (14:03)
[2021-09-23] MEDS ORDERED: TRAM50TA2 PO (14:03)
[2021-09-23] MEDS ORDERED: MIDO10TA PO (14:03)
[2021-09-23] MEDS ORDERED: FOLI1TAB11 PO (14:03)
[2021-09-23 14:05] LABS: RSV AMPLIFICATION NEGATIVE (NEGATIVE)
[2021-09-23] MEDS ORDERED: HOME MED LIST COMPLETE! XX SCH (14:05)
[2021-09-23] MEDS ORDERED: MAALOX 30 ML SUSP *UDC PO PRN (15:10)
[2021-09-23] MEDS ORDERED: MOM 30ML SUSPENSION UDC PO PRN (15:10)
[2021-09-23] MEDS ORDERED: ACETAMINOPHEN TAB 650MG DOSE (2X325MG) PO PRN (15:10)
[2021-09-23] MEDS ORDERED: POTASSIUM CHLORIDE 10MEQ SR TABLET PO ONE (15:50)
[2021-09-23] MEDS ORDERED: ALBUTEROL 90 MCG/ACT 8GM HFA INHALER INH PRN (15:50)
[2021-09-23] MEDS ORDERED: LACTULOSE 20 GM/30 ML SYRUP UD PO ONE (15:50)
[2021-09-23 16:16] LABS: MAGNESIUM LEVEL 1.8 MG/DL (1.8-2.4)
[2021-09-23 20:03] LABS: INR 2.05; PROTHROMBIN TIME 23.5 SECONDS (12.7-14.5)
[2021-09-23 20:04] LABS: PARTIAL THROMBOPLASTIN TIME 42.7 SECONDS (25.9-37.0)
[2021-09-23] MEDS: MIDODRINE 5 MG TAB PO SCH (20:41)
[2021-09-23 20:42] VITALS: BP 118/80
[2021-09-23] MEDS: DOCUSATE SODIUM 100MG CAPSULE PO SCH (21:00)
[2021-09-23] MEDS: LACTULOSE 20 GM/30 ML SYRUP UD PO SCH (21:09)
[2021-09-23] MEDS: traMADol 50 MG TAB PO PRN (23:03)
[2021-09-24] VITALS (8 sets, daily range): BP systolic 97–137; BP diastolic 59–80
[2021-09-24 04:54] LABS: BASO % 0.8 % (0.0-1.0); EOS # 0.1 10^3/uL (0.0-0.5); EOS % 3.6 % (0.0-3.0); HEMATOCRIT 26.9 % (42.0-52.0); HEMOGLOBIN 9.1 g/dl (13.5-17.5); LYMPH # 0.7 10^3/uL (1.5-5.0); MEAN CORPUSCULAR HEMOGLOBIN 34.1 pg (27.0-33.0); MEAN CORPUSCULAR HGB CONC 33.8 g/dl (32.0-36.5); MEAN CORPUSCULAR VOLUME 100.7 fl (80.0-96.0); MONO # 0.7 10^3/uL (0.0-0.8); MONO % 18.8 % (2.0-8.0); NEUTROPHILS # 2.3 10^3/uL (1.5-8.5); NEUTROPHILS % 59.3 % (36.0-66.0); RED BLOOD COUNT 2.67 10^6/uL (4.30-6.10); WHITE BLOOD COUNT 3.9 10^3/uL (4.0-10.0)
[2021-09-24 04:55] LABS: PLATELET COUNT, AUTOMATED 59 10^3/uL (150-450)
[2021-09-24 05:29] LABS: ALBUMIN 2.3 GM/DL (3.2-5.2); ALT/SGPT 36 U/L (12-78); BILIRUBIN,TOTAL 7.8 MG/DL (0.2-1.0); BLOOD UREA NITROGEN 13 MG/DL (7-18); CALCIUM LEVEL 8.3 MG/DL (8.8-10.2); CARBON DIOXIDE LEVEL 30 MEQ/L (21-32); CHLORIDE LEVEL 101 MEQ/L (98-107); CREATININE FOR GFR 1.23 MG/DL (0.70-1.30); GLOMERULAR FILTRATION RATE > 60.0 (>49); GLUCOSE, FASTING 79 MG/DL (70-100); POTASSIUM SERUM 3.1 MEQ/L (3.5-5.1); SODIUM LEVEL 136 MEQ/L (136-145); TOTAL PROTEIN 4.8 GM/DL (6.4-8.2)
[2021-09-24] MEDS ORDERED: POTASSIUM CHLORIDE 10MEQ SR TABLET PO ONE (07:25)
[2021-09-24 08:08] LABS: INR 2.12; PROTHROMBIN TIME 24.1 SECONDS (12.7-14.5)
[2021-09-24 08:09] LABS: PARTIAL THROMBOPLASTIN TIME 45.7 SECONDS (25.9-37.0)
[2021-09-24] MEDS ORDERED: ENOXAPARIN 40MG/0.4ML SYRINGE (J1650 PER 10MG) SC SCH (09:00)
[2021-09-24] MEDS: THIAMINE 100 MG TAB PO SCH (09:02)
[2021-09-24] MEDS: FOLIC ACID 1 MG TAB PO SCH (09:02)
[2021-09-24] MEDS: TAMSULOSIN 0.4 MG CAP PO SCH (09:02)
[2021-09-24] MEDS: OMEPRAZOLE 20MG CAP PO SCH (09:02)
[2021-09-24] MEDS: DOCUSATE SODIUM 100MG CAPSULE PO SCH ×2 (09:02→20:21)
[2021-09-24] MEDS: MIDODRINE 5 MG TAB PO SCH ×3 (09:02→16:39)
[2021-09-24] MEDS: traMADol 50 MG TAB PO PRN (09:03)
[2021-09-24] MEDS: cefTRIAXone SOD 2 GM in D5W MINI-BAG PLUS 50 ML IV SCH (12:25)
[2021-09-24 16:16] LABS: APPEARANCE, BODY FLUID CLEAR (CLEAR); ASCITES FL COLOR YELLOW (COLORLESS); SOURCE, BODY FLUID ASCITES; SPEC. GRAVITY BODY FLUIDS 1.007 (NOT ESTABLISHED)
[2021-09-24 16:31] LABS: SOURCE, BODY FLUID ALBUMIN ASCITES; SOURCE, BODY FLUID GLUCOSE ASCITES; SOURCE, BODY FLUID TOT PROTEIN ASCITES; TOTAL PROTEIN, BODY FLUID 0.4 G/DL (NOT ESTABLISHED)
[2021-09-24] MEDS: MAG SULF 1GM/100ML (MAG RUN) 1 GM in IV 1 EA IV SCH ×2 (17:58→20:20)
[2021-09-24] MEDS: LACTULOSE 20 GM/30 ML SYRUP UD PO SCH (20:20)
[2021-09-24] MEDS ORDERED: MAGIC MOUTHWASH SUSPENSION BTL SSP PRN (22:30)
[2021-09-25] VITALS (13 sets, daily range): BP systolic 92–127; BP diastolic 56–81
[2021-09-25] MEDS: traMADol 50 MG TAB PO PRN (01:14)
[2021-09-25] MEDS ORDERED: HYDROmorphone 2 MG TAB PO ONE (02:20)
[2021-09-25] MEDS ORDERED: PROMETHAZINE 25 MG TAB PO PRN (03:25)
[2021-09-25] MEDS ORDERED: fentaNYL 100 MCG/2 ML INJECTION IV PRN (03:50)
[2021-09-25 05:58] LABS: BASO % 0.3 % (0.0-1.0); EOS # 0.1 10^3/uL (0.0-0.5); EOS % 2.3 % (0.0-3.0); HEMATOCRIT 25.7 % (42.0-52.0); HEMOGLOBIN 8.4 g/dl (13.5-17.5); LYMPH # 0.4 10^3/uL (1.5-5.0); MEAN CORPUSCULAR HEMOGLOBIN 33.7 pg (27.0-33.0); MEAN CORPUSCULAR HGB CONC 32.7 g/dl (32.0-36.5); MEAN CORPUSCULAR VOLUME 103.2 fl (80.0-96.0); MONO # 0.6 10^3/uL (0.0-0.8); MONO % 15.7 % (2.0-8.0); NEUTROPHILS # 2.4 10^3/uL (1.5-8.5); NEUTROPHILS % 69.1 % (36.0-66.0); RED BLOOD COUNT 2.49 10^6/uL (4.30-6.10); WHITE BLOOD COUNT 3.5 10^3/uL (4.0-10.0)
[2021-09-25 06:11] LABS: PLATELET COUNT, AUTOMATED 55 10^3/uL (150-450)
[2021-09-25 06:20] LABS: ALBUMIN 2.4 GM/DL (3.2-5.2); ALT/SGPT 34 U/L (12-78); BILIRUBIN,TOTAL 6.4 MG/DL (0.2-1.0); BLOOD UREA NITROGEN 10 MG/DL (7-18); CALCIUM LEVEL 7.7 MG/DL (8.8-10.2); CARBON DIOXIDE LEVEL 26 MEQ/L (21-32); CHLORIDE LEVEL 101 MEQ/L (98-107); CREATININE FOR GFR 1.14 MG/DL (0.70-1.30); GLOMERULAR FILTRATION RATE > 60.0 (>49); GLUCOSE, FASTING 144 MG/DL (70-100); POTASSIUM SERUM 3.4 MEQ/L (3.5-5.1); SODIUM LEVEL 135 MEQ/L (136-145)
[2021-09-25] MEDS ORDERED: POTASSIUM CHLORIDE 10MEQ SR TABLET PO ONE (07:25)
[2021-09-25] MEDS: DOCUSATE SODIUM 100MG CAPSULE PO SCH ×2 (09:00→20:47)
[2021-09-25] MEDS: MIDODRINE 5 MG TAB PO SCH ×3 (09:33→17:39)
[2021-09-25] MEDS: TAMSULOSIN 0.4 MG CAP PO SCH (09:33)
[2021-09-25] MEDS: OMEPRAZOLE 20MG CAP PO SCH (09:34)
[2021-09-25] MEDS: THIAMINE 100 MG TAB PO SCH (09:34)
[2021-09-25] MEDS: FOLIC ACID 1 MG TAB PO SCH (09:34)
[2021-09-25] MEDS ORDERED: LACTULOSE 20 GM/30 ML SYRUP UD PO ONE (13:45)
[2021-09-25] MEDS: cefTRIAXone SOD 2 GM in D5W MINI-BAG PLUS 50 ML IV SCH (15:18)
[2021-09-25] MEDS: LACTULOSE 20 GM/30 ML SYRUP UD PO SCH (20:47)
[2021-09-26 03:47] LABS: BASO % 0.7 % (0.0-1.0); EOS # 0.1 10^3/uL (0.0-0.5); EOS % 4.9 % (0.0-3.0); HEMATOCRIT 26.9 % (42.0-52.0); HEMOGLOBIN 8.8 g/dl (13.5-17.5); LYMPH # 0.5 10^3/uL (1.5-5.0); LYMPH % 17.7 % (24.0-44.0); MEAN CORPUSCULAR HGB CONC 32.7 g/dl (32.0-36.5); MEAN CORPUSCULAR VOLUME 103.9 fl (80.0-96.0); MONO # 0.4 10^3/uL (0.0-0.8); MONO % 15.3 % (2.0-8.0); NEUTROPHILS # 1.8 10^3/uL (1.5-8.5); NEUTROPHILS % 61.1 % (36.0-66.0); RED BLOOD COUNT 2.59 10^6/uL (4.30-6.10); WHITE BLOOD COUNT 2.9 10^3/uL (4.0-10.0)
[2021-09-26 03:49] LABS: PLATELET COUNT, AUTOMATED 56 10^3/uL (150-450)
[2021-09-26 04:14] LABS: ALBUMIN 2.7 GM/DL (3.2-5.2); ALT/SGPT 36 U/L (12-78); BILIRUBIN,TOTAL 6.6 MG/DL (0.2-1.0); BLOOD UREA NITROGEN 9 MG/DL (7-18); CALCIUM LEVEL 8.1 MG/DL (8.8-10.2); CARBON DIOXIDE LEVEL 30 MEQ/L (21-32); CHLORIDE LEVEL 102 MEQ/L (98-107); CREATININE FOR GFR 1.11 MG/DL (0.70-1.30); GLOMERULAR FILTRATION RATE > 60.0 (>49); GLUCOSE, FASTING 80 MG/DL (70-100); POTASSIUM SERUM 3.4 MEQ/L (3.5-5.1); SODIUM LEVEL 137 MEQ/L (136-145); TOTAL PROTEIN 5.2 GM/DL (6.4-8.2)
[2021-09-26 04:24] VITALS: BP 101/72
[2021-09-26 07:55] VITALS: BP 112/74
[2021-09-26] MEDS ORDERED: POTASSIUM CHLORIDE 10MEQ SR TABLET PO ONE (08:00)
[2021-09-26] MEDS: MIDODRINE 5 MG TAB PO SCH ×2 (08:00→12:00)
[2021-09-26] MEDS: DOCUSATE SODIUM 100MG CAPSULE PO SCH (09:06)
[2021-09-26] MEDS: THIAMINE 100 MG TAB PO SCH (09:07)
[2021-09-26] MEDS: OMEPRAZOLE 20MG CAP PO SCH (09:07)
[2021-09-26] MEDS: TAMSULOSIN 0.4 MG CAP PO SCH (09:07)
[2021-09-26] MEDS: FOLIC ACID 1 MG TAB PO SCH (09:07)
[2021-09-26 09:27] LABS: INR 1.97; PROTHROMBIN TIME 22.8 SECONDS (12.7-14.5)
[2021-09-26 09:28] LABS: PARTIAL THROMBOPLASTIN TIME 44.7 SECONDS (25.9-37.0)
[2021-09-26] MEDS ORDERED: CIPR500T39 PO (12:21)
[2021-09-26] MEDS ORDERED: LACT20EL PO (12:21)
[2021-09-26] MEDS ORDERED: LEVO750T13 PO (12:21)
[2021-09-26 12:43] VITALS: BP 109/66
[2021-09-26 12:47] VITALS: BP 109/66
[2021-09-26] MEDS: cefTRIAXone SOD 2 GM in D5W MINI-BAG PLUS 50 ML IV SCH (13:00)
== END 2021-09-26 16:24 | disposition home or self-care (01) ==
LOC: M ED 11:28 → M ED INP 11:29 → M PCU 21:04
PROVIDERS: ADMIT Internal Medicine; ATTEND Internal Medicine
DX: K70.31 Alcoholic cirrhosis of liver with ascites (principal); K70.40 Alcoholic hepatic failure without coma; K65.2 Spontaneous bacterial peritonitis; I67.82 Cerebral ischemia; I50.31 Acute diastolic (congestive) heart failure; K76.6 Portal hypertension; K29.70 Gastritis, unspecified, without bleeding; I85.10 Secondary esophageal varices without bleeding; I81 Portal vein thrombosis; N18.30 Chronic kidney disease, stage 3 unspecified; I13.0 Hypertensive heart and chronic kidney disease with heart failure and stage 1 through stage 4 chronic kidney disease, or unspecified chronic kidney disease; M19.90 Unspecified osteoarthritis, unspecified site; E88.09 Other disorders of plasma-protein metabolism, not elsewhere classified; D64.9 Anemia, unspecified; K92.2 Gastrointestinal hemorrhage, unspecified; E87.2 Acidosis; I95.9 Hypotension, unspecified; E83.42 Hypomagnesemia; R41.82 Altered mental status, unspecified; F17.210 Nicotine dependence, cigarettes, uncomplicated; Z79.899 Other long term (current) drug therapy; Z79.2 Long term (current) use of antibiotics; Z79.51 Long term (current) use of inhaled steroids; J30.1 Allergic rhinitis due to pollen
CPT/HCPCS: 36415; 36514; 49083; 70450; 71045; 73630; 74018; 80048; 80053; 80076; 80143; 81001; 82042; 82077; 82140; 82550; 82553; 82803; 82945; 83605; 83735; 83930; 84157; 84315; 84443; 84484; 85025; 85049; 85055; 85610; 85730; 86850; 86900; 86901; 87040; 87070; 87077; 87102; 87116; 87186; 87205; 87206; 87631; 89051; 93005; 93041; 96365; 96366; 96376; 99285; G0378; J0696; J3475; P9047

== ENCOUNTER → 2021-09-30 | Outpatient (CLI) | payer MEDICARE ==
[~2021-09-30] MED LIST changes: +LEVO750T13 PO; +MIDO10TA PO; +OMEP40CA4 PO
[2021-09-30 13:57] VITALS: BP 96/64
[2021-09-30 14:08] VITALS: BP 92/65
[2021-09-30 14:15] VITALS: BP 96/57
[2021-09-30 14:21] VITALS: BP 101/68
[2021-09-30 14:40] VITALS: BP 108/70
== END ==
LOC: M IRPRO 13:15
PROVIDERS: ATTEND Internal Medicine Gastroenterology
DX: K70.31 Alcoholic cirrhosis of liver with ascites (principal)
CPT/HCPCS: 49083; 96365; P9047

== ENCOUNTER → 2021-10-07 | Outpatient (CLI) | payer MEDICARE ==
[2021-10-07 14:51] VITALS: BP 95/55
[2021-10-07 14:52] LABS: BASO % 0.5 % (0.0-1.0); EOS # 0.1 10^3/uL (0.0-0.5); EOS % 1.3 % (0.0-3.0); HEMATOCRIT 28.6 % (42.0-52.0); HEMOGLOBIN 9.6 g/dl (13.5-17.5); LYMPH # 0.5 10^3/uL (1.5-5.0); LYMPH % 11.6 % (24.0-44.0); MEAN CORPUSCULAR HEMOGLOBIN 33.1 pg (27.0-33.0); MEAN CORPUSCULAR HGB CONC 33.6 g/dl (32.0-36.5); MEAN CORPUSCULAR VOLUME 98.6 fl (80.0-96.0); MONO # 0.6 10^3/uL (0.0-0.8); NEUTROPHILS # 2.7 10^3/uL (1.5-8.5); NEUTROPHILS % 70.3 % (36.0-66.0); WHITE BLOOD COUNT 3.9 10^3/uL (4.0-10.0)
[2021-10-07 14:54] LABS: PLATELET COUNT, AUTOMATED 67 10^3/uL (150-450)
[2021-10-07 14:55] VITALS: BP 103/55
[2021-10-07 15:01] VITALS: BP 97/59
[2021-10-07 15:02] LABS: INR 1.65; PROTHROMBIN TIME 19.9 SECONDS (12.7-14.5)
[2021-10-07 15:05] VITALS: BP 99/59
[2021-10-07 15:11] LABS: ALBUMIN 2.7 GM/DL (3.2-5.2); ALT/SGPT 61 U/L (12-78); BILIRUBIN,DIRECT 3.2 MG/DL (0.0-0.2); BILIRUBIN,TOTAL 6.9 MG/DL (0.2-1.0); BLOOD UREA NITROGEN 26 MG/DL (7-18); CALCIUM LEVEL 8.3 MG/DL (8.8-10.2); CARBON DIOXIDE LEVEL 28 MEQ/L (21-32); CHLORIDE LEVEL 94 MEQ/L (98-107); CREATININE FOR GFR 1.61 MG/DL (0.70-1.30); GLOMERULAR FILTRATION RATE 46.7 (>49); GLUCOSE, FASTING 138 MG/DL (70-100); IRON (FE) 95 UG/DL (65-175); PERCENT SATURATION 44.8 % (19.7-50.0); POTASSIUM SERUM 3.8 MEQ/L (3.5-5.1); SODIUM LEVEL 130 MEQ/L (136-145); TOTAL IRON BINDING CAPACITY 212 UG/DL (250-450); TOTAL PROTEIN 5.6 GM/DL (6.4-8.2)
[2021-10-07 15:12] VITALS: BP 96/65
[2021-10-07 15:15] VITALS: BP 96/62
[2021-10-07 15:30] LABS: HEPATITIS B SURFACE ANTIGEN NEGATIVE (NEGATIVE)
[2021-10-07 15:58] LABS: HEPATITIS C VIRUS ABY INDEX 0.1 INDEX (<0.8)
[2021-10-07 15:59] LABS: HEPATITIS B CORE ANTIBODY IGM NEGATIVE (NEGATIVE)
== END ==
LOC: M IRPRO 13:27
PROVIDERS: ATTEND Internal Medicine Gastroenterology
DX: K70.31 Alcoholic cirrhosis of liver with ascites (principal)
CPT/HCPCS: 49083; 80048; 80076; 82390; 83550; 85025; 85049; 85055; 85610; 86015; 86037; 86038; 86255; 86376; 86705; 86709; 86803; 87340; 96365; P9047

== ENCOUNTER → 2021-10-10 | Outpatient (CLI) | payer MEDICARE ==
[~2021-10-10] MED LIST changes: +LACT10SO3 PO; +MED REC COMMENT; +OXYC-517 PO
== END ==
LOC: M RAD 08:28
PROVIDERS: ATTEND Internal Medicine Hematology & Oncology
DX: M17.12 Unilateral primary osteoarthritis, left knee (principal); Z79.01 Long term (current) use of anticoagulants; R09.89 Other specified symptoms and signs involving the circulatory and respiratory systems

== ENCOUNTER → 2021-10-10 | Outpatient (CLI) | payer MEDICARE ==
[~2021-10-10] MED LIST changes: -LACT10SO3 PO; -MED REC COMMENT; -OXYC-517 PO
[2021-10-10 10:00] LABS: HEMATOCRIT 27.7 % (42.0-52.0); HEMOGLOBIN 9.5 g/dl (13.5-17.5); MEAN CORPUSCULAR HEMOGLOBIN 33.9 pg (27.0-33.0); MEAN CORPUSCULAR HGB CONC 34.3 g/dl (32.0-36.5); MEAN CORPUSCULAR VOLUME 98.9 fl (80.0-96.0); WHITE BLOOD COUNT 3.9 10^3/uL (4.0-10.0)
[2021-10-10 10:03] LABS: PLATELET COUNT, AUTOMATED 65 10^3/uL (150-450)
[2021-10-10 10:12] LABS: INR 1.61; PROTHROMBIN TIME 19.6 SECONDS (12.7-14.5)
[2021-10-10 10:34] LABS: ERYTHROCYTE SEDIMENTATION RATE 11 mm/hr (0-20)
[2021-10-10 10:46] LABS: ALBUMIN 2.9 GM/DL (3.2-5.2); BILIRUBIN,TOTAL 6.6 MG/DL (0.2-1.0); CALCIUM LEVEL 8.3 MG/DL (8.8-10.2); CREATININE FOR GFR 1.52 MG/DL (0.70-1.30); GLOMERULAR FILTRATION RATE 49.9 (>49); POTASSIUM SERUM 3.9 MEQ/L (3.5-5.1); TOTAL PROTEIN 5.4 GM/DL (6.4-8.2)
== END ==
LOC: M LAB 08:34
PROVIDERS: ATTEND Orthopaedic Surgery
DX: M17.12 Unilateral primary osteoarthritis, left knee (principal); Z79.01 Long term (current) use of anticoagulants

== ENCOUNTER → 2021-10-13 | Outpatient (CLI) | payer MEDICARE | LOC: M LABSMTC 12:06 | PROVIDERS: ATTEND Anesthesiology | DX: Z01.812 Encounter for preprocedural laboratory examination (principal); Z11.52 Encounter for screening for COVID-19 ==

== ENCOUNTER → 2021-10-14 | Outpatient (CLI) | payer MEDICARE ==
[2021-10-14 14:14] VITALS: BP 97/64
[2021-10-14 14:18] VITALS: BP 97/58
[2021-10-14 14:24] VITALS: BP 93/59
[2021-10-14 14:30] VITALS: BP 96/58
[2021-10-14 14:45] VITALS: BP 96/56
== END ==
LOC: M IRPRO 12:54
PROVIDERS: ATTEND Internal Medicine Gastroenterology
DX: K70.31 Alcoholic cirrhosis of liver with ascites (principal)
CPT/HCPCS: 49083; 96365; P9047

== ENCOUNTER 2021-10-17 11:36 | Day surgery (SDC) | payer MEDICARE ==
[~2021-10-17] VITALS: Ht 177.8 cm; Wt 99.8 kg
[~2021-10-17 11:36] MED LIST changes: -LACT10SO3 PO; -MED REC COMMENT; +NS 1,000 ML IV ONE; -OXYC-517 PO
[2021-10-17] MEDS ORDERED: LIDOCAINE 2% MDV 20ML VIAL As Ordered ONE (13:48)
[2021-10-17] MEDS ORDERED: fentaNYL 100 MCG/2 ML INJECTION As Ordered ONE (13:48)
[2021-10-17] MEDS ORDERED: propofoL 200 MG/20 ML VIAL As Ordered ONE (13:48)
[2021-10-17 13:55] VITALS: BP 106/66
== END 2021-10-17 14:15 | disposition home or self-care (01) ==
LOC: M SDC 11:36
PROVIDERS: ATTEND Internal Medicine Gastroenterology
DX: I85.00 Esophageal varices without bleeding (principal); M17.12 Unilateral primary osteoarthritis, left knee; I10 Essential (primary) hypertension; Z87.891 Personal history of nicotine dependence; Z79.899 Other long term (current) drug therapy

== ENCOUNTER → 2021-10-17 | Outpatient (CLI) | payer MEDICARE ==
[~2021-10-17] MED LIST changes: +LACT10SO3 PO; +MED REC COMMENT; +OXYC-517 PO
[2021-10-17 15:07] LABS: HEMATOCRIT 29.1 % (42.0-52.0); HEMOGLOBIN 9.7 g/dl (13.5-17.5); MEAN CORPUSCULAR HEMOGLOBIN 33.3 pg (27.0-33.0); MEAN CORPUSCULAR HGB CONC 33.3 g/dl (32.0-36.5); RED BLOOD COUNT 2.91 10^6/uL (4.30-6.10); WHITE BLOOD COUNT 2.9 10^3/uL (4.0-10.0)
[2021-10-17 15:08] LABS: PLATELET COUNT, AUTOMATED 59 10^3/uL (150-450)
[2021-10-17 15:18] LABS: INR 1.79; PROTHROMBIN TIME 21.2 SECONDS (12.7-14.5)
[2021-10-17 15:24] LABS: ERYTHROCYTE SEDIMENTATION RATE 9 mm/hr (0-20)
[2021-10-17 15:39] LABS: ALBUMIN 2.8 GM/DL (3.2-5.2); BILIRUBIN,TOTAL 7.9 MG/DL (0.2-1.0); CALCIUM LEVEL 8.6 MG/DL (8.8-10.2); CREATININE FOR GFR 1.74 MG/DL (0.70-1.30); GLOMERULAR FILTRATION RATE 42.7 (>49); POTASSIUM SERUM 3.8 MEQ/L (3.5-5.1); TOTAL PROTEIN 5.4 GM/DL (6.4-8.2)
== END ==
LOC: M RAD 13:57
PROVIDERS: ATTEND Student in an Organized Health Care Education/Training Program
DX: Z01.818 Encounter for other preprocedural examination (principal); M17.12 Unilateral primary osteoarthritis, left knee

== ENCOUNTER 2021-10-20 10:15 | Inpatient (IN) | payer MEDICARE ==
[~2021-10-20] VITALS: Ht 182.9 cm; Wt 94.3 kg
[~2021-10-20 10:15] MED LIST changes: -NS 1,000 ML IV ONE
[2021-10-20] MEDS ORDERED: OXYC-517 PO (10:29)
[2021-10-20 11:12] LABS: VENOUS BASE EXCESS 2.3 (-2.0-2.0); VENOUS HCO3 25.9 MEQ/L (23.0-27.0); VENOUS O2 SATURATION 60.4 % (60.0-80.0); VENOUS PARTIAL PRESSURE CO2 36.8 mmHg (38.0-50.0); VENOUS PARTIAL PRESSURE O2 33.5 mmHg (30.0-50.0); VENOUS PH 7.466 UNITS (7.330-7.430); VENOUS STANDARD HCO3 25.8 MEQ/L; VENOUS TOTAL CO2 27.1 MEQ/L (24.0-28.0)
[2021-10-20 11:18] LABS: BASO % 0.5 % (0.0-1.0); HEMATOCRIT 30.3 % (42.0-52.0); HEMOGLOBIN 10.3 g/dl (13.5-17.5); LYMPH # 0.5 10^3/uL (1.5-5.0); LYMPH % 11.1 % (24.0-44.0); MEAN CORPUSCULAR HEMOGLOBIN 33.1 pg (27.0-33.0); MEAN CORPUSCULAR VOLUME 97.4 fl (80.0-96.0); MONO # 0.5 10^3/uL (0.0-0.8); MONO % 13.1 % (2.0-8.0); NEUTROPHILS % 73.8 % (36.0-66.0); RED BLOOD COUNT 3.11 10^6/uL (4.30-6.10); WHITE BLOOD COUNT 4.1 10^3/uL (4.0-10.0)
[2021-10-20 11:21] LABS: PLATELET COUNT, AUTOMATED 62 10^3/uL (150-450)
[2021-10-20 11:47] LABS: CK-MB VALUE MASS 1.9 NG/ML (<3.6); MB/CK RELATIVE INDEX 3.02 (< OR =4)
[2021-10-20 11:57] LABS: ACETAMINOPHEN LEVEL < 2.0 UG/ML (10.0-30.0); ALBUMIN 2.8 GM/DL (3.2-5.2); ALT/SGPT 55 U/L (12-78); BILIRUBIN,DIRECT 3.8 MG/DL (0.0-0.2); BILIRUBIN,TOTAL 8.9 MG/DL (0.2-1.0); BLOOD UREA NITROGEN 16 MG/DL (7-18); CALCIUM LEVEL 8.6 MG/DL (8.8-10.2); CARBON DIOXIDE LEVEL 27 MEQ/L (21-32); CHLORIDE LEVEL 100 MEQ/L (98-107); CREATININE FOR GFR 1.37 MG/DL (0.70-1.30); ETHYL ALCOHOL (ETHANOL) < 0.003 % (0.000-0.010); GLOMERULAR FILTRATION RATE 56.2 (>49); GLUCOSE, FASTING 108 MG/DL (70-100); POTASSIUM SERUM 4.1 MEQ/L (3.5-5.1); SALICYLATE LEVEL < 1.7 MG/DL (5.0-30.0); SODIUM LEVEL 134 MEQ/L (136-145); TOTAL PROTEIN 5.4 GM/DL (6.4-8.2)
[2021-10-20 12:06] LABS: OSMOLALITY SERUM 281 MOSM/KG (280-301)
[2021-10-20] MEDS ORDERED: LACT10SO3 PO (12:42)
[2021-10-20] MEDS ORDERED: CIPR-249 PO (12:42)
[2021-10-20] MEDS ORDERED: MED REC COMMENT (12:44)
[2021-10-20] MEDS ORDERED: HOME MED LIST COMPLETE! XX SCH (12:45)
[2021-10-20 12:51] LABS: INR 1.65; PROTHROMBIN TIME 19.9 SECONDS (12.7-14.5)
[2021-10-20] MEDS ORDERED: LACTULOSE 20 GM/30 ML SYRUP UD PR ONE (13:30)
[2021-10-20] MEDS ORDERED: SPIR100T3 PO (13:33)
[2021-10-20 13:36] LABS: AMPHETAMINES LEVEL URINE NEGATIVE (NEGATIVE); BARBITURATES URINE NEGATIVE (NEGATIVE); BENZODIAZEPINES URINE NEGATIVE (NEGATIVE); CANNABINOIDS URINE POSITIVE (NEGATIVE); COCAINE METABOLITE URINE NEGATIVE (NEGATIVE); METHADONE URINE NEGATIVE (NEGATIVE); OPIATES URINE NEGATIVE (NEGATIVE); PHENCYCLIDINE URINE NEGATIVE (NEGATIVE)
[2021-10-20] MEDS: cefTRIAXone SOD 1 GM in D5W MINI-BAG PLUS 50 ML IV SCH (14:00)
[2021-10-20 14:54] LABS: RSV AMPLIFICATION NEGATIVE (NEGATIVE)
[2021-10-20 16:40] VITALS: BP 133/69
[2021-10-20] MEDS: NS 1,000 ML IV SCH (16:59)
[2021-10-20] MEDS: LACTULOSE 20 GM/30 ML SYRUP UD PO SCH ×2 (18:08→23:16)
[2021-10-20] MEDS ORDERED: ANALGESIC BALM CRM 3OZ TOP PRN (20:25)
[2021-10-20] MEDS ORDERED: oxyCODONE 5MG TAB PO ONE (21:40)
[2021-10-20 22:00] VITALS: BP 126/84
[2021-10-21] MEDS: LACTULOSE 20 GM/30 ML SYRUP UD PO SCH ×2 (05:27→21:13)
[2021-10-21] MEDS: NS 1,000 ML IV SCH (05:27)
[2021-10-21 06:00] VITALS: BP 124/82
[2021-10-21 06:31] LABS: BASO % 0.5 % (0.0-1.0); EOS # 0.1 10^3/uL (0.0-0.5); EOS % 2.9 % (0.0-3.0); HEMATOCRIT 27.6 % (42.0-52.0); HEMOGLOBIN 9.1 g/dl (13.5-17.5); LYMPH # 0.6 10^3/uL (1.5-5.0); MEAN CORPUSCULAR HEMOGLOBIN 32.5 pg (27.0-33.0); MEAN CORPUSCULAR VOLUME 98.6 fl (80.0-96.0); MONO # 0.5 10^3/uL (0.0-0.8); MONO % 13.6 % (2.0-8.0); NEUTROPHILS # 2.5 10^3/uL (1.5-8.5); NEUTROPHILS % 66.5 % (36.0-66.0); WHITE BLOOD COUNT 3.8 10^3/uL (4.0-10.0)
[2021-10-21 06:32] LABS: PLATELET COUNT, AUTOMATED 58 10^3/uL (150-450)
[2021-10-21 07:01] LABS: ALBUMIN 2.6 GM/DL (3.2-5.2); ALT/SGPT 52 U/L (12-78); BILIRUBIN,TOTAL 8.1 MG/DL (0.2-1.0); BLOOD UREA NITROGEN 15 MG/DL (7-18); CALCIUM LEVEL 8.2 MG/DL (8.8-10.2); CARBON DIOXIDE LEVEL 26 MEQ/L (21-32); CHLORIDE LEVEL 104 MEQ/L (98-107); CREATININE FOR GFR 1.24 MG/DL (0.70-1.30); GLOMERULAR FILTRATION RATE > 60.0 (>49); GLUCOSE, FASTING 98 MG/DL (70-100); POTASSIUM SERUM 3.7 MEQ/L (3.5-5.1); SODIUM LEVEL 138 MEQ/L (136-145)
[2021-10-21] MEDS: TAMSULOSIN 0.4 MG CAP PO SCH (07:57)
[2021-10-21] MEDS: OMEPRAZOLE 20MG CAP PO SCH (07:57)
[2021-10-21] MEDS: MIDODRINE 5 MG TAB PO SCH ×3 (08:00→15:58)
[2021-10-21] MEDS: oxyCODONE 5MG TAB PO PRN ×2 (09:57→21:13)
[2021-10-21 12:05] VITALS: BP 121/85
[2021-10-21 14:00] VITALS: BP 111/67
[2021-10-21] MEDS: cefTRIAXone SOD 1 GM in D5W MINI-BAG PLUS 50 ML IV SCH (14:53)
[2021-10-21 16:19] LABS: APPEARANCE, BODY FLUID HAZY (CLEAR); ASCITES FL COLOR YELLOW (COLORLESS); SOURCE, BODY FLUID ASCITES
[2021-10-21 22:00] VITALS: BP 102/73
[2021-10-22 05:11] LABS: BASO % 0.5 % (0.0-1.0); EOS # 0.1 10^3/uL (0.0-0.5); EOS % 3.4 % (0.0-3.0); HEMATOCRIT 26.7 % (42.0-52.0); HEMOGLOBIN 8.8 g/dl (13.5-17.5); LYMPH # 0.6 10^3/uL (1.5-5.0); LYMPH % 14.6 % (24.0-44.0); MONO # 0.5 10^3/uL (0.0-0.8); MONO % 13.6 % (2.0-8.0); NEUTROPHILS # 2.6 10^3/uL (1.5-8.5); NEUTROPHILS % 67.4 % (36.0-66.0); RED BLOOD COUNT 2.67 10^6/uL (4.30-6.10); WHITE BLOOD COUNT 3.8 10^3/uL (4.0-10.0)
[2021-10-22 05:18] LABS: PLATELET COUNT, AUTOMATED 54 10^3/uL (150-450)
[2021-10-22] MEDS: oxyCODONE 5MG TAB PO PRN ×2 (05:19→17:05)
[2021-10-22 05:40] LABS: ALBUMIN 2.3 GM/DL (3.2-5.2); ALT/SGPT 52 U/L (12-78); BILIRUBIN,TOTAL 6.3 MG/DL (0.2-1.0); BLOOD UREA NITROGEN 11 MG/DL (7-18); CALCIUM LEVEL 7.6 MG/DL (8.8-10.2); CARBON DIOXIDE LEVEL 27 MEQ/L (21-32); CHLORIDE LEVEL 102 MEQ/L (98-107); CREATININE FOR GFR 1.01 MG/DL (0.70-1.30); GLOMERULAR FILTRATION RATE > 60.0 (>49); GLUCOSE, FASTING 105 MG/DL (70-100); POTASSIUM SERUM 4.1 MEQ/L (3.5-5.1); SODIUM LEVEL 133 MEQ/L (136-145); TOTAL PROTEIN 4.7 GM/DL (6.4-8.2)
[2021-10-22 06:00] VITALS: BP 106/72
[2021-10-22] MEDS: MIDODRINE 5 MG TAB PO SCH ×3 (08:00→17:05)
[2021-10-22] MEDS: OMEPRAZOLE 20MG CAP PO SCH (08:58)
[2021-10-22] MEDS: LACTULOSE 20 GM/30 ML SYRUP UD PO SCH ×2 (08:58→20:53)
[2021-10-22] MEDS: TAMSULOSIN 0.4 MG CAP PO SCH (08:58)
[2021-10-22 08:59] VITALS: BP 119/70
[2021-10-22] MEDS ORDERED: ISOVUE-370 76% 100ML VIAL As Ordered ONE (11:03)
[2021-10-22] MEDS: TORSEMIDE 10 MG TABLET PO SCH (12:27)
[2021-10-22] MEDS: rifAXIMin 550 MG TAB (XIFAXAN) PO SCH ×2 (12:28→20:53)
[2021-10-22] MEDS: SPIRONOLACTONE 50 MG TAB PO SCH (12:28)
[2021-10-22 12:29] VITALS: BP 116/72
[2021-10-22 14:00] VITALS: BP 110/60
[2021-10-22] MEDS: cefTRIAXone SOD 1 GM in D5W MINI-BAG PLUS 50 ML IV SCH (14:18)
[2021-10-22 17:00] VITALS: BP 89/53
[2021-10-22] MEDS: APIXABAN 5 MG TAB (ELIQUIS) PO SCH (20:53)
[2021-10-22 22:00] VITALS: BP 99/57
[2021-10-23] MEDS: oxyCODONE 5MG TAB PO PRN ×2 (01:18→09:29)
[2021-10-23 06:00] VITALS: BP 96/63
[2021-10-23 07:19] LABS: BASO % 0.6 % (0.0-1.0); EOS # 0.1 10^3/uL (0.0-0.5); HEMATOCRIT 26.4 % (42.0-52.0); LYMPH # 0.6 10^3/uL (1.5-5.0); LYMPH % 12.8 % (24.0-44.0); MEAN CORPUSCULAR HEMOGLOBIN 33.3 pg (27.0-33.0); MEAN CORPUSCULAR HGB CONC 34.1 g/dl (32.0-36.5); MEAN CORPUSCULAR VOLUME 97.8 fl (80.0-96.0); MONO # 0.6 10^3/uL (0.0-0.8); MONO % 12.3 % (2.0-8.0); NEUTROPHILS # 3.3 10^3/uL (1.5-8.5); NEUTROPHILS % 70.9 % (36.0-66.0); PLATELET COUNT, AUTOMATED 55 10^3/uL (150-450); WHITE BLOOD COUNT 4.7 10^3/uL (4.0-10.0)
[2021-10-23 07:48] LABS: ALBUMIN 2.1 GM/DL (3.2-5.2); ALT/SGPT 51 U/L (12-78); BILIRUBIN,TOTAL 5.4 MG/DL (0.2-1.0); BLOOD UREA NITROGEN 11 MG/DL (7-18); CALCIUM LEVEL 7.6 MG/DL (8.8-10.2); CARBON DIOXIDE LEVEL 26 MEQ/L (21-32); CHLORIDE LEVEL 98 MEQ/L (98-107); CREATININE FOR GFR 1.16 MG/DL (0.70-1.30); GLOMERULAR FILTRATION RATE > 60.0 (>49); GLUCOSE, FASTING 104 MG/DL (70-100); POTASSIUM SERUM 3.5 MEQ/L (3.5-5.1); SODIUM LEVEL 130 MEQ/L (136-145); TOTAL PROTEIN 4.6 GM/DL (6.4-8.2)
[2021-10-23 07:56] LABS: INR 1.81; PROTHROMBIN TIME 21.4 SECONDS (12.7-14.5)
[2021-10-23 07:57] LABS: PARTIAL THROMBOPLASTIN TIME 43.4 SECONDS (25.9-37.0)
[2021-10-23] MEDS: OMEPRAZOLE 20MG CAP PO SCH (08:52)
[2021-10-23] MEDS: LACTULOSE 20 GM/30 ML SYRUP UD PO SCH (08:52)
[2021-10-23] MEDS: TAMSULOSIN 0.4 MG CAP PO SCH (08:52)
[2021-10-23] MEDS: APIXABAN 5 MG TAB (ELIQUIS) PO SCH (08:53)
[2021-10-23] MEDS: MIDODRINE 5 MG TAB PO SCH ×3 (08:53→15:37)
[2021-10-23] MEDS: TORSEMIDE 10 MG TABLET PO SCH (08:53)
[2021-10-23] MEDS: SPIRONOLACTONE 50 MG TAB PO SCH (08:53)
[2021-10-23] MEDS: rifAXIMin 550 MG TAB (XIFAXAN) PO SCH (08:53)
[2021-10-23] MEDS ORDERED: ELIQ5TAB PO (09:08)
[2021-10-23] MEDS ORDERED: XIFA550T PO (09:08)
[2021-10-23] MEDS ORDERED: ELIQ2.5T PO (09:46)
[2021-10-23 14:00] VITALS: BP 93/58
[2021-10-23] MEDS ORDERED: CIPR-249 PO (16:11)
== END 2021-10-23 18:46 | disposition home or self-care (01) | DRG 441 ==
LOC: M ED 10:15 → M ED INP 13:17 → ENRESERV 15:30 → M MSPAV 16:47
PROVIDERS: ADMIT Internal Medicine Nephrology; ATTEND Internal Medicine Nephrology
PROC: 0W9J3ZZ Drainage of Pelvic Cavity, Percutaneous Approach (ICD-10-PCS; principal; 2021-10-21 14:00)
DX: K72.90 Hepatic failure, unspecified without coma (principal); I81 Portal vein thrombosis; E87.2 Acidosis; I13.0 Hypertensive heart and chronic kidney disease with heart failure and stage 1 through stage 4 chronic kidney disease, or unspecified chronic kidney disease; I50.32 Chronic diastolic (congestive) heart failure; D68.4 Acquired coagulation factor deficiency; J94.8 Other specified pleural conditions; K70.31 Alcoholic cirrhosis of liver with ascites; J45.909 Unspecified asthma, uncomplicated; N18.30 Chronic kidney disease, stage 3 unspecified; D69.6 Thrombocytopenia, unspecified; E66.9 Obesity, unspecified; M19.90 Unspecified osteoarthritis, unspecified site; K64.8 Other hemorrhoids; I95.89 Other hypotension; D64.9 Anemia, unspecified; R16.1 Splenomegaly, not elsewhere classified; E88.09 Other disorders of plasma-protein metabolism, not elsewhere classified; K42.9 Umbilical hernia without obstruction or gangrene; K21.9 Gastro-esophageal reflux disease without esophagitis; N40.0 Benign prostatic hyperplasia without lower urinary tract symptoms; Z79.899 Other long term (current) drug therapy; F17.200 Nicotine dependence, unspecified, uncomplicated

== ENCOUNTER 2021-10-31 20:39 | Inpatient (IN) | payer MEDICARE, OTHER, SELFPAY ==
[~2021-10-31] VITALS: Ht 182.9 cm; Wt 104.7 kg
[~2021-10-31 20:39] MED LIST changes: +ELIQ2.5T PO; +LACT10SO3 PO; +MED REC COMMENT; +OXYC-517 PO; +XIFA550T PO
[2021-10-31] MEDS ORDERED: THIA100T22 PO (21:22)
[2021-10-31 22:24] LABS: VENOUS BASE EXCESS -0.8 (-2.0-2.0); VENOUS HCO3 21.6 MEQ/L (23.0-27.0); VENOUS O2 SATURATION 81.7 % (60.0-80.0); VENOUS PARTIAL PRESSURE CO2 28.6 mmHg (38.0-50.0); VENOUS PARTIAL PRESSURE O2 48.1 mmHg (30.0-50.0); VENOUS PH 7.495 UNITS (7.330-7.430); VENOUS STANDARD HCO3 23.5 MEQ/L; VENOUS TOTAL CO2 22.4 MEQ/L (24.0-28.0)
[2021-10-31 22:28] LABS: BASO % 0.3 % (0.0-1.0); EOS % 0.8 % (0.0-3.0); HEMATOCRIT 27.4 % (42.0-52.0); HEMOGLOBIN 9.7 g/dl (13.5-17.5); LYMPH # 0.4 10^3/uL (1.5-5.0); LYMPH % 11.1 % (24.0-44.0); MEAN CORPUSCULAR HGB CONC 35.4 g/dl (32.0-36.5); MEAN CORPUSCULAR VOLUME 96.1 fl (80.0-96.0); MONO # 0.5 10^3/uL (0.0-0.8); MONO % 14.6 % (2.0-8.0); NEUTROPHILS # 2.7 10^3/uL (1.5-8.5); NEUTROPHILS % 72.7 % (36.0-66.0); RED BLOOD COUNT 2.85 10^6/uL (4.30-6.10); WHITE BLOOD COUNT 3.7 10^3/uL (4.0-10.0)
[2021-10-31 22:32] LABS: PLATELET COUNT, AUTOMATED 60 10^3/uL (150-450)
[2021-10-31 22:58] LABS: CK-MB VALUE MASS 2.5 NG/ML (<3.6); MB/CK RELATIVE INDEX 2.23 (< OR =4)
[2021-10-31] MEDS ORDERED: LACTULOSE 20 GM/30 ML SYRUP UD PO ONE (23:05)
[2021-10-31 23:07] LABS: ACETAMINOPHEN LEVEL < 2.0 UG/ML (10.0-30.0); ALBUMIN 2.5 GM/DL (3.2-5.2); ALT/SGPT 86 U/L (12-78); BILIRUBIN,DIRECT 2.8 MG/DL (0.0-0.2); BILIRUBIN,TOTAL 9.3 MG/DL (0.2-1.0); BLOOD UREA NITROGEN 32 MG/DL (7-18); CALCIUM LEVEL 8.6 MG/DL (8.8-10.2); CARBON DIOXIDE LEVEL 25 MEQ/L (21-32); CHLORIDE LEVEL 94 MEQ/L (98-107); CREATININE FOR GFR 2.19 MG/DL (0.70-1.30); ETHYL ALCOHOL (ETHANOL) < 0.003 % (0.000-0.010); GLOMERULAR FILTRATION RATE 32.7 (>49); GLUCOSE, FASTING 116 MG/DL (70-100); POTASSIUM SERUM 5.4 MEQ/L (3.5-5.1); SALICYLATE LEVEL < 1.7 MG/DL (5.0-30.0); SODIUM LEVEL 130 MEQ/L (136-145); TOTAL PROTEIN 5.8 GM/DL (6.4-8.2)
[2021-10-31 23:15] LABS: RSV AMPLIFICATION NEGATIVE (NEGATIVE)
[2021-10-31] MEDS ORDERED: NS 1,000 ML IV ONE (23:15)
[2021-11-01] MEDS ORDERED: ELIQ2.5T PO (00:03)
[2021-11-01] MEDS ORDERED: CIPR500T39 PO (00:03)
[2021-11-01] MEDS ORDERED: HOME MED LIST COMPLETE! XX SCH (00:10)
[2021-11-01] MEDS ORDERED: ALBUTEROL 90 MCG/ACT 8GM HFA INHALER INH PRN (01:10)
[2021-11-01 01:31] LABS: INR 1.99
[2021-11-01 01:32] LABS: PARTIAL THROMBOPLASTIN TIME 42.2 SECONDS (25.9-37.0)
[2021-11-01 01:43] LABS: CK-MB VALUE MASS 2.7 NG/ML (<3.6); MB/CK RELATIVE INDEX 3.42 (< OR =4)
[2021-11-01] MEDS ORDERED: NS 1,000 ML IV ONE (02:05)
[2021-11-01 04:38] LABS: ALBUMIN 2.3 GM/DL (3.2-5.2); BILIRUBIN,TOTAL 8.7 MG/DL (0.2-1.0); CALCIUM LEVEL 8.6 MG/DL (8.8-10.2); CREATININE FOR GFR 1.88 MG/DL (0.70-1.30); MAGNESIUM LEVEL 2.2 MG/DL (1.8-2.4); TOTAL PROTEIN 4.7 GM/DL (6.4-8.2)
[2021-11-01 05:08] LABS: AMPHETAMINES LEVEL URINE NEGATIVE (NEGATIVE); BARBITURATES URINE NEGATIVE (NEGATIVE); BENZODIAZEPINES URINE NEGATIVE (NEGATIVE); CANNABINOIDS URINE POSITIVE (NEGATIVE); COCAINE METABOLITE URINE NEGATIVE (NEGATIVE); METHADONE URINE NEGATIVE (NEGATIVE); OPIATES URINE NEGATIVE (NEGATIVE); PHENCYCLIDINE URINE NEGATIVE (NEGATIVE)
[2021-11-01] MEDS: cefTRIAXone SOD 1 GM in D5W MINI-BAG PLUS 50 ML IV SCH (06:10)
[2021-11-01] MEDS: MIDODRINE 5 MG TAB PO SCH ×3 (08:00→17:40)
[2021-11-01 09:08] LABS: BASO % 0.3 % (0.0-1.0); EOS # 0.1 10^3/uL (0.0-0.5); EOS % 4.5 % (0.0-3.0); HEMATOCRIT 24.5 % (42.0-52.0); HEMOGLOBIN 8.6 g/dl (13.5-17.5); LYMPH # 0.6 10^3/uL (1.5-5.0); LYMPH % 19.5 % (24.0-44.0); MEAN CORPUSCULAR HEMOGLOBIN 33.9 pg (27.0-33.0); MEAN CORPUSCULAR HGB CONC 35.1 g/dl (32.0-36.5); MEAN CORPUSCULAR VOLUME 96.5 fl (80.0-96.0); MONO # 0.6 10^3/uL (0.0-0.8); MONO % 20.6 % (2.0-8.0); NEUTROPHILS # 1.6 10^3/uL (1.5-8.5); NEUTROPHILS % 54.4 % (36.0-66.0); RED BLOOD COUNT 2.54 10^6/uL (4.30-6.10); WHITE BLOOD COUNT 2.9 10^3/uL (4.0-10.0)
[2021-11-01 09:09] LABS: PLATELET COUNT, AUTOMATED 45 10^3/uL (150-450)
[2021-11-01] MEDS: LACTULOSE 20 GM/30 ML SYRUP UD PO SCH ×2 (09:54→21:53)
[2021-11-01] MEDS: THIAMINE 100 MG TAB PO SCH (09:55)
[2021-11-01] MEDS: APIXABAN 2.5 MG TAB (ELIQUIS) PO SCH ×2 (09:55→21:53)
[2021-11-01] MEDS: OMEPRAZOLE 20MG CAP PO SCH (09:55)
[2021-11-01] MEDS: TAMSULOSIN 0.4 MG CAP PO SCH (09:55)
[2021-11-01] MEDS: FOLIC ACID 1 MG TAB PO SCH (09:55)
[2021-11-01] MEDS: GI COCKTAIL 50ML BTL(HYOSCYAMINE/MAALOX/LIDOCAINE VISCOUS)(1:3:1) PO PRN ×2 (09:56→22:36)
[2021-11-01] MEDS ORDERED: MIDODRINE 2.5 MG TAB PO SCH (10:00)
[2021-11-01] MEDS: rifAXIMin 550 MG TAB (XIFAXAN) PO SCH ×2 (11:24→22:07)
[2021-11-01 18:05] LABS: CREATININE,RANDOM URINE 77.8 MG/DL
[2021-11-01 22:42] VITALS: BP 133/66
[2021-11-02] MEDS ORDERED: MORPHINE 4 MG/ML 1ML VIAL/SYRINGE (J2270) IV ONE
[2021-11-02] MEDS ORDERED: UNRESOLVED CLARIFICATION ENTRY XX SCH (00:01)
[2021-11-02] MEDS: cefTRIAXone SOD 1 GM in D5W MINI-BAG PLUS 50 ML IV SCH (05:29)
[2021-11-02 06:21] LABS: HEMATOCRIT 23.8 % (42.0-52.0); HEMOGLOBIN 8.2 g/dl (13.5-17.5); MEAN CORPUSCULAR HEMOGLOBIN 33.3 pg (27.0-33.0); MEAN CORPUSCULAR HGB CONC 34.5 g/dl (32.0-36.5); MEAN CORPUSCULAR VOLUME 96.7 fl (80.0-96.0); RED BLOOD COUNT 2.46 10^6/uL (4.30-6.10); WHITE BLOOD COUNT 3.3 10^3/uL (4.0-10.0)
[2021-11-02 06:23] LABS: PLATELET COUNT, AUTOMATED 55 10^3/uL (150-450)
[2021-11-02 06:50] LABS: ALBUMIN 2.1 GM/DL (3.2-5.2); BILIRUBIN,TOTAL 7.8 MG/DL (0.2-1.0); CREATININE FOR GFR 1.79 MG/DL (0.70-1.30); GLOMERULAR FILTRATION RATE 41.3 (>49); MAGNESIUM LEVEL 2.2 MG/DL (1.8-2.4); POTASSIUM SERUM 4.2 MEQ/L (3.5-5.1); TOTAL PROTEIN 4.8 GM/DL (6.4-8.2)
[2021-11-02] MEDS: OMEPRAZOLE 20MG CAP PO SCH (08:09)
[2021-11-02] MEDS: LACTULOSE 20 GM/30 ML SYRUP UD PO SCH ×2 (08:10→20:31)
[2021-11-02] MEDS: rifAXIMin 550 MG TAB (XIFAXAN) PO SCH ×2 (08:14→20:32)
[2021-11-02] MEDS: THIAMINE 100 MG TAB PO SCH (08:15)
[2021-11-02] MEDS: FOLIC ACID 1 MG TAB PO SCH (08:15)
[2021-11-02] MEDS: APIXABAN 2.5 MG TAB (ELIQUIS) PO SCH ×2 (08:15→20:32)
[2021-11-02] MEDS: TAMSULOSIN 0.4 MG CAP PO SCH (08:15)
[2021-11-02] MEDS: MIDODRINE 5 MG TAB PO SCH ×3 (08:15→17:06)
[2021-11-02] MEDS: NS 1,000 ML IV SCH ×2 (10:27→23:42)
[2021-11-02] MEDS: oxyCODONE 5MG TAB PO PRN (10:44)
[2021-11-02 14:00] VITALS: BP 98/56
[2021-11-02 17:07] VITALS: BP 93/59
[2021-11-02 21:00] VITALS: BP 93/60
[2021-11-03] MEDS: oxyCODONE 5MG TAB PO PRN ×2 (00:39→13:00)
[2021-11-03 05:00] VITALS: BP 92/59
[2021-11-03 05:53] LABS: HEMOGLOBIN 7.9 g/dl (13.5-17.5); MEAN CORPUSCULAR HEMOGLOBIN 33.8 pg (27.0-33.0); MEAN CORPUSCULAR HGB CONC 34.3 g/dl (32.0-36.5); MEAN CORPUSCULAR VOLUME 98.3 fl (80.0-96.0); RED BLOOD COUNT 2.34 10^6/uL (4.30-6.10); WHITE BLOOD COUNT 3.4 10^3/uL (4.0-10.0)
[2021-11-03 05:54] LABS: PLATELET COUNT, AUTOMATED 47 10^3/uL (150-450)
[2021-11-03] MEDS: cefTRIAXone SOD 1 GM in D5W MINI-BAG PLUS 50 ML IV SCH (06:03)
[2021-11-03 06:13] LABS: BILIRUBIN,TOTAL 6.4 MG/DL (0.2-1.0); CALCIUM LEVEL 7.5 MG/DL (8.8-10.2); CREATININE FOR GFR 1.46 MG/DL (0.70-1.30); GLOMERULAR FILTRATION RATE 52.3 (>49); MAGNESIUM LEVEL 2.3 MG/DL (1.8-2.4); POTASSIUM SERUM 4.3 MEQ/L (3.5-5.1); TOTAL PROTEIN 4.5 GM/DL (6.4-8.2)
[2021-11-03] MEDS: OMEPRAZOLE 20MG CAP PO SCH (08:44)
[2021-11-03] MEDS: FOLIC ACID 1 MG TAB PO SCH (08:44)
[2021-11-03] MEDS: TAMSULOSIN 0.4 MG CAP PO SCH (08:44)
[2021-11-03] MEDS: rifAXIMin 550 MG TAB (XIFAXAN) PO SCH ×2 (08:45→20:49)
[2021-11-03] MEDS: LACTULOSE 20 GM/30 ML SYRUP UD PO SCH ×2 (08:45→20:48)
[2021-11-03] MEDS: MIDODRINE 5 MG TAB PO SCH ×3 (08:45→16:40)
[2021-11-03] MEDS: APIXABAN 2.5 MG TAB (ELIQUIS) PO SCH ×2 (08:45→20:49)
[2021-11-03] MEDS: THIAMINE 100 MG TAB PO SCH (08:45)
[2021-11-03 08:48] VITALS: BP 98/62
[2021-11-03 12:07] LABS: HEMATOCRIT 23.4 % (42.0-52.0); HEMOGLOBIN 8.2 g/dl (13.5-17.5); MEAN CORPUSCULAR HEMOGLOBIN 34.3 pg (27.0-33.0); MEAN CORPUSCULAR VOLUME 97.9 fl (80.0-96.0); PLATELET COUNT, AUTOMATED 43 10^3/uL (150-450); RED BLOOD COUNT 2.39 10^6/uL (4.30-6.10); WHITE BLOOD COUNT 3.2 10^3/uL (4.0-10.0)
[2021-11-03 14:00] VITALS: BP 93/61
[2021-11-03 22:00] VITALS: BP 101/66
[2021-11-03] MEDS ORDERED: oxyCODONE 5MG TAB PO ONE (23:20)
[2021-11-04] VITALS (10 sets, daily range): BP systolic 82–120; BP diastolic 48–60
[2021-11-04] MEDS: cefTRIAXone SOD 1 GM in D5W MINI-BAG PLUS 50 ML IV SCH (05:15)
[2021-11-04] MEDS: MIDODRINE 5 MG TAB PO SCH ×3 (05:54→16:00)
[2021-11-04 06:59] LABS: HEMATOCRIT 22.6 % (42.0-52.0); HEMOGLOBIN 7.8 g/dl (13.5-17.5); MEAN CORPUSCULAR HEMOGLOBIN 34.1 pg (27.0-33.0); MEAN CORPUSCULAR HGB CONC 34.5 g/dl (32.0-36.5); MEAN CORPUSCULAR VOLUME 98.7 fl (80.0-96.0); RED BLOOD COUNT 2.29 10^6/uL (4.30-6.10); WHITE BLOOD COUNT 3.8 10^3/uL (4.0-10.0)
[2021-11-04 07:03] LABS: PLATELET COUNT, AUTOMATED 49 10^3/uL (150-450)
[2021-11-04 07:21] LABS: BILIRUBIN,TOTAL 5.1 MG/DL (0.2-1.0); CALCIUM LEVEL 7.5 MG/DL (8.8-10.2); CREATININE FOR GFR 1.41 MG/DL (0.70-1.30); GLOMERULAR FILTRATION RATE 54.4 (>49); MAGNESIUM LEVEL 2.3 MG/DL (1.8-2.4); POTASSIUM SERUM 4.2 MEQ/L (3.5-5.1); TOTAL PROTEIN 4.4 GM/DL (6.4-8.2)
[2021-11-04] MEDS ORDERED: NS 500 ML IV ONE (08:00)
[2021-11-04 08:32] LABS: HEMATOCRIT 23.8 % (42.0-52.0); HEMOGLOBIN 8.3 g/dl (13.5-17.5)
[2021-11-04] MEDS: LACTULOSE 20 GM/30 ML SYRUP UD PO SCH ×2 (09:17→20:07)
[2021-11-04] MEDS: TAMSULOSIN 0.4 MG CAP PO SCH (09:17)
[2021-11-04] MEDS: rifAXIMin 550 MG TAB (XIFAXAN) PO SCH ×2 (09:18→20:06)
[2021-11-04] MEDS: THIAMINE 100 MG TAB PO SCH (09:18)
[2021-11-04] MEDS: APIXABAN 2.5 MG TAB (ELIQUIS) PO SCH ×2 (09:19→20:06)
[2021-11-04] MEDS: FOLIC ACID 1 MG TAB PO SCH (09:19)
[2021-11-04] MEDS: OMEPRAZOLE 20MG CAP PO SCH (09:19)
[2021-11-04] MEDS ORDERED: XIFA550T PO (09:39)
[2021-11-04] MEDS: GI COCKTAIL 50ML BTL(HYOSCYAMINE/MAALOX/LIDOCAINE VISCOUS)(1:3:1) PO PRN (10:18)
[2021-11-04] MEDS ORDERED: METR-265 PO (10:42)
[2021-11-04] MEDS ORDERED: BACITAB PO (10:42)
[2021-11-04] MEDS ORDERED: CIPR-249 PO (10:42)
[2021-11-04 12:14] LABS: CALCIUM LEVEL 7.8 MG/DL (8.8-10.2); CREATININE FOR GFR 1.41 MG/DL (0.70-1.30); GLOMERULAR FILTRATION RATE 54.4 (>49); POTASSIUM SERUM 4.1 MEQ/L (3.5-5.1)
[2021-11-04 13:58] LABS: SPEC. GRAVITY BODY FLUIDS 1.007 (NOT ESTABLISHED)
[2021-11-04 14:00] LABS: APPEARANCE, BODY FLUID CLEAR (CLEAR); PERITONEAL FL COLOR PALE YELLOW (COLORLESS); SOURCE, BODY FLUID PERITONEAL
[2021-11-04 14:16] LABS: SOURCE, BODY FLUID ALBUMIN PERITONEAL; SOURCE, BODY FLUID GLUCOSE PERITONEAL; SOURCE, BODY FLUID TOT PROTEIN PERITONEAL; TOTAL PROTEIN, BODY FLUID 0.3 G/DL (NOT ESTABLISHED)
[2021-11-04] MEDS ORDERED: SODIUM CHLORIDE 1 GM TAB PO SCH (18:00)
[2021-11-04] MEDS: oxyCODONE 5MG TAB PO PRN (20:07)
[2021-11-04 20:48] LABS: CALCIUM LEVEL 7.7 MG/DL (8.8-10.2); CREATININE FOR GFR 1.37 MG/DL (0.70-1.30); GLOMERULAR FILTRATION RATE 56.2 (>49); POTASSIUM SERUM 4.4 MEQ/L (3.5-5.1)
[2021-11-05] VITALS (13 sets, daily range): BP systolic 80–125; BP diastolic 50–74
[2021-11-05 03:10] LABS: CALCIUM LEVEL 7.4 MG/DL (8.8-10.2); CREATININE FOR GFR 1.36 MG/DL (0.70-1.30); GLOMERULAR FILTRATION RATE 56.7 (>49); POTASSIUM SERUM 4.4 MEQ/L (3.5-5.1)
[2021-11-05] MEDS: cefTRIAXone SOD 1 GM in D5W MINI-BAG PLUS 50 ML IV SCH (05:13)
[2021-11-05] MEDS ORDERED: TOLVAPTAN 7.5 MG HALF-TAB PO ONE (05:25)
[2021-11-05] MEDS: COSYNTROPIN 0.25 MG/ML VIAL (J0834 PER 0.25MG) IV ONE ×2 (05:54→08:09)
[2021-11-05 06:25] LABS: HEMATOCRIT 22.3 % (42.0-52.0); HEMOGLOBIN 7.6 g/dl (13.5-17.5); MEAN CORPUSCULAR HEMOGLOBIN 34.1 pg (27.0-33.0); MEAN CORPUSCULAR HGB CONC 34.1 g/dl (32.0-36.5); RED BLOOD COUNT 2.23 10^6/uL (4.30-6.10); WHITE BLOOD COUNT 2.4 10^3/uL (4.0-10.0)
[2021-11-05 06:28] LABS: PLATELET COUNT, AUTOMATED 39 10^3/uL (150-450)
[2021-11-05 06:54] LABS: ALBUMIN 2.2 GM/DL (3.2-5.2); BILIRUBIN,TOTAL 4.6 MG/DL (0.2-1.0); CALCIUM LEVEL 7.5 MG/DL (8.8-10.2); CREATININE FOR GFR 1.38 MG/DL (0.70-1.30); GLOMERULAR FILTRATION RATE 55.8 (>49); MAGNESIUM LEVEL 2.3 MG/DL (1.8-2.4); POTASSIUM SERUM 4.4 MEQ/L (3.5-5.1); TOTAL PROTEIN 4.3 GM/DL (6.4-8.2)
[2021-11-05 07:03] LABS: ALBUMIN 2.2 GM/DL (3.2-5.2); BILIRUBIN,DIRECT 2.6 MG/DL (0.0-0.2); BILIRUBIN,TOTAL 4.6 MG/DL (0.2-1.0); C REACTIVE PROTEIN QUANTITATIV 1.03 MG/DL (0.00-0.30); TOTAL PROTEIN 4.2 GM/DL (6.4-8.2)
[2021-11-05 07:21] LABS: ERYTHROCYTE SEDIMENTATION RATE 7 mm/hr (0-20)
[2021-11-05] MEDS: SODIUM CHLORIDE 1 GM TAB PO SCH ×3 (08:56→18:21)
[2021-11-05] MEDS: LACTULOSE 20 GM/30 ML SYRUP UD PO SCH ×2 (08:56→20:22)
[2021-11-05] MEDS: TAMSULOSIN 0.4 MG CAP PO SCH (08:56)
[2021-11-05] MEDS: APIXABAN 2.5 MG TAB (ELIQUIS) PO SCH ×2 (08:57→20:24)
[2021-11-05] MEDS: rifAXIMin 550 MG TAB (XIFAXAN) PO SCH ×2 (08:57→20:24)
[2021-11-05] MEDS: OMEPRAZOLE 20MG CAP PO SCH (08:57)
[2021-11-05] MEDS: MIDODRINE 5 MG TAB PO SCH ×3 (08:57→16:01)
[2021-11-05] MEDS: FOLIC ACID 1 MG TAB PO SCH (08:57)
[2021-11-05] MEDS: THIAMINE 100 MG TAB PO SCH (08:58)
[2021-11-05] MEDS: oxyCODONE 5MG TAB PO PRN ×2 (09:17→21:35)
[2021-11-05 09:33] LABS: CORTISOL BASELINE 5.7 UG/DL (4.3-22.4)
[2021-11-05 12:53] LABS: HEMATOCRIT 23.5 % (42.0-52.0)
[2021-11-05 13:11] LABS: CALCIUM LEVEL 8.1 MG/DL (8.8-10.2); CREATININE FOR GFR 1.34 MG/DL (0.70-1.30); GLOMERULAR FILTRATION RATE 57.7 (>49); POTASSIUM SERUM 4.7 MEQ/L (3.5-5.1)
[2021-11-05 13:25] LABS: SODIUM,RANDOM URINE < 10 MEQ/L
[2021-11-05 15:23] LABS: OSMOLALITY URINE 267 MOSM/KG (50-1400)
[2021-11-05 18:55] LABS: CALCIUM LEVEL 7.9 MG/DL (8.8-10.2); CREATININE FOR GFR 1.38 MG/DL (0.70-1.30); GLOMERULAR FILTRATION RATE 55.8 (>49); POTASSIUM SERUM 4.9 MEQ/L (3.5-5.1)
[2021-11-06] VITALS (11 sets, daily range): BP systolic 90–107; BP diastolic 53–67
[2021-11-06 00:24] LABS: CALCIUM LEVEL 7.8 MG/DL (8.8-10.2); CREATININE FOR GFR 1.39 MG/DL (0.70-1.30); GLOMERULAR FILTRATION RATE 55.3 (>49); POTASSIUM SERUM 4.4 MEQ/L (3.5-5.1)
[2021-11-06] MEDS: cefTRIAXone SOD 1 GM in D5W MINI-BAG PLUS 50 ML IV SCH (05:58)
[2021-11-06 08:27] LABS: HEMATOCRIT 22.3 % (42.0-52.0); HEMOGLOBIN 7.7 g/dl (13.5-17.5); MEAN CORPUSCULAR HEMOGLOBIN 35.2 pg (27.0-33.0); MEAN CORPUSCULAR HGB CONC 34.5 g/dl (32.0-36.5); MEAN CORPUSCULAR VOLUME 101.8 fl (80.0-96.0); RED BLOOD COUNT 2.19 10^6/uL (4.30-6.10); WHITE BLOOD COUNT 2.6 10^3/uL (4.0-10.0)
[2021-11-06 08:28] LABS: PLATELET COUNT, AUTOMATED 42 10^3/uL (150-450)
[2021-11-06 08:52] LABS: ALBUMIN 2.8 GM/DL (3.2-5.2); BILIRUBIN,TOTAL 4.4 MG/DL (0.2-1.0); CALCIUM LEVEL 7.9 MG/DL (8.8-10.2); CREATININE FOR GFR 1.32 MG/DL (0.70-1.30); GLOMERULAR FILTRATION RATE 58.7 (>49); MAGNESIUM LEVEL 2.3 MG/DL (1.8-2.4); POTASSIUM SERUM 4.4 MEQ/L (3.5-5.1); TOTAL PROTEIN 4.7 GM/DL (6.4-8.2)
[2021-11-06] MEDS: MIDODRINE 5 MG TAB PO SCH ×3 (09:04→15:36)
[2021-11-06] MEDS: APIXABAN 2.5 MG TAB (ELIQUIS) PO SCH (09:04)
[2021-11-06] MEDS: THIAMINE 100 MG TAB PO SCH (09:04)
[2021-11-06] MEDS: FOLIC ACID 1 MG TAB PO SCH (09:04)
[2021-11-06] MEDS: OMEPRAZOLE 20MG CAP PO SCH (09:05)
[2021-11-06] MEDS: LACTULOSE 20 GM/30 ML SYRUP UD PO SCH (09:05)
[2021-11-06] MEDS: SODIUM CHLORIDE 1 GM TAB PO SCH ×3 (09:05→17:34)
[2021-11-06] MEDS: rifAXIMin 550 MG TAB (XIFAXAN) PO SCH (09:05)
[2021-11-06] MEDS: TAMSULOSIN 0.4 MG CAP PO SCH (09:05)
[2021-11-06] MEDS: oxyCODONE 5MG TAB PO PRN (09:29)
[2021-11-06 10:38] LABS: HEMATOCRIT 21.4 % (42.0-52.0); HEMOGLOBIN 7.4 g/dl (13.5-17.5)
[2021-11-06 13:01] LABS: CALCIUM LEVEL 8.1 MG/DL (8.8-10.2); CREATININE FOR GFR 1.32 MG/DL (0.70-1.30); GLOMERULAR FILTRATION RATE 58.7 (>49); POTASSIUM SERUM 4.3 MEQ/L (3.5-5.1)
[2021-11-06 17:29] LABS: BLOOD UREA NITROGEN 17 MG/DL (7-18); CALCIUM LEVEL 7.9 MG/DL (8.8-10.2); CARBON DIOXIDE LEVEL 25 MEQ/L (21-32); CHLORIDE LEVEL 103 MEQ/L (98-107); CREATININE FOR GFR 1.27 MG/DL (0.70-1.30); GLOMERULAR FILTRATION RATE > 60.0 (>49); GLUCOSE, FASTING 103 MG/DL (70-100); POTASSIUM SERUM 4.4 MEQ/L (3.5-5.1); SODIUM LEVEL 132 MEQ/L (136-145)
[2021-11-06 17:35] LABS: HEMATOCRIT 24.3 % (42.0-52.0); HEMOGLOBIN 8.4 g/dl (13.5-17.5)
== END 2021-11-06 18:53 | disposition home or self-care (01) | DRG 280 ==
LOC: M ED 20:39 → M ED INP 23:53 → ENRESERV 11-01 21:10 → M MSPAV 11-01 22:42
PROVIDERS: ADMIT Family Medicine; ATTEND General Practice
PROC: 0W9G3ZZ Drainage of Peritoneal Cavity, Percutaneous Approach (ICD-10-PCS; principal; 2021-11-04 12:14)
DX: K70.31 Alcoholic cirrhosis of liver with ascites (principal); E87.1 Hypo-osmolality and hyponatremia; N17.9 Acute kidney failure, unspecified; K21.9 Gastro-esophageal reflux disease without esophagitis; K72.00 Acute and subacute hepatic failure without coma; I82.890 Acute embolism and thrombosis of other specified veins; D61.818 Other pancytopenia; Z79.899 Other long term (current) drug therapy; N18.30 Chronic kidney disease, stage 3 unspecified; J45.909 Unspecified asthma, uncomplicated; D69.6 Thrombocytopenia, unspecified; I50.32 Chronic diastolic (congestive) heart failure; I95.89 Other hypotension; E87.2 Acidosis; Z90.81 Acquired absence of spleen; M19.90 Unspecified osteoarthritis, unspecified site; F17.200 Nicotine dependence, unspecified, uncomplicated; E87.5 Hyperkalemia

== ENCOUNTER → 2021-11-11 | Outpatient (CLI) | payer MEDICARE ==
[~2021-11-11] MED LIST changes: +BACITAB PO; +METR-265 PO; +THIA100T22 PO
[2021-11-11 13:46] VITALS: BP 105/61
[2021-11-11 13:50] VITALS: BP 98/51
[2021-11-11 14:00] VITALS: BP 95/58
[2021-11-11 14:08] VITALS: BP 112/63
[2021-11-11 14:17] VITALS: BP 108/58
== END ==
LOC: M IRPRO 12:45
PROVIDERS: ATTEND Internal Medicine Gastroenterology
DX: K70.31 Alcoholic cirrhosis of liver with ascites (principal); Z79.899 Other long term (current) drug therapy; Z79.01 Long term (current) use of anticoagulants
CPT/HCPCS: 36415; 49083; 80053; 83735; 85025; 85049; 85055; 85610; 96365; P9047

== ENCOUNTER → 2021-11-11 | Outpatient (CLI) | payer MEDICARE ==
[2021-11-11 16:00] LABS: ALBUMIN 2.7 GM/DL (3.2-5.2); BILIRUBIN,TOTAL 5.7 MG/DL (0.2-1.0); CALCIUM LEVEL 8.1 MG/DL (8.8-10.2); CREATININE FOR GFR 1.53 MG/DL (0.70-1.30); GLOMERULAR FILTRATION RATE 49.5 (>49); MAGNESIUM LEVEL 1.9 MG/DL (1.8-2.4); POTASSIUM SERUM 4.4 MEQ/L (3.5-5.1); TOTAL PROTEIN 4.9 GM/DL (6.4-8.2)
[2021-11-11 16:03] LABS: BASO % 0.9 % (0.0-1.0); EOS # 0.1 10^3/uL (0.0-0.5); EOS % 2.9 % (0.0-3.0); HEMATOCRIT 25.9 % (42.0-52.0); HEMOGLOBIN 8.8 g/dl (13.5-17.5); LYMPH # 0.4 10^3/uL (1.5-5.0); LYMPH % 12.6 % (24.0-44.0); MEAN CORPUSCULAR HEMOGLOBIN 34.6 pg (27.0-33.0); MONO # 0.5 10^3/uL (0.0-0.8); MONO % 13.8 % (2.0-8.0); NEUTROPHILS # 2.4 10^3/uL (1.5-8.5); NEUTROPHILS % 69.2 % (36.0-66.0); RED BLOOD COUNT 2.54 10^6/uL (4.30-6.10); WHITE BLOOD COUNT 3.4 10^3/uL (4.0-10.0)
[2021-11-11 16:04] LABS: PLATELET COUNT, AUTOMATED 43 10^3/uL (150-450)
[2021-11-11 16:05] LABS: INR 1.93; PROTHROMBIN TIME 22.5 SECONDS (12.7-14.5)
== END ==
LOC: M LAB 12:57
DX: Z79.899 Other long term (current) drug therapy (principal); Z79.01 Long term (current) use of anticoagulants

== ENCOUNTER → 2021-11-18 | Outpatient (CLI) | payer MEDICARE ==
[2021-11-18 13:29] VITALS: BP 108/72
[2021-11-18 13:40] VITALS: BP 98/66
[2021-11-18 13:50] VITALS: BP 98/66
[2021-11-18 14:11] VITALS: BP 101/68
== END ==
LOC: M IRPRO 12:54
PROVIDERS: ATTEND Internal Medicine Gastroenterology
DX: K70.31 Alcoholic cirrhosis of liver with ascites (principal)
CPT/HCPCS: 49083; 96365; P9047

== ENCOUNTER → 2021-11-27 | Outpatient (CLI) | payer MEDICARE ==
[~2021-11-27] MED LIST changes: +CIPR250T3 PO; +OXYC1TAB23 PO
[2021-11-27 14:08] VITALS: BP 133/82
[2021-11-27 14:17] VITALS: BP 129/90
[2021-11-27 14:17] LABS: EOS # 0.1 10^3/uL (0.0-0.5); EOS % 2.6 % (0.0-3.0); HEMATOCRIT 30.1 % (42.0-52.0); HEMOGLOBIN 10.2 g/dl (13.5-17.5); LYMPH # 0.5 10^3/uL (1.5-5.0); LYMPH % 16.3 % (24.0-44.0); MEAN CORPUSCULAR HEMOGLOBIN 34.5 pg (27.0-33.0); MEAN CORPUSCULAR HGB CONC 33.9 g/dl (32.0-36.5); MEAN CORPUSCULAR VOLUME 101.7 fl (80.0-96.0); MONO # 0.5 10^3/uL (0.0-0.8); NEUTROPHILS % 64.8 % (36.0-66.0); RED BLOOD COUNT 2.96 10^6/uL (4.30-6.10); WHITE BLOOD COUNT 3.1 10^3/uL (4.0-10.0)
[2021-11-27 14:20] LABS: PLATELET COUNT, AUTOMATED 62 10^3/uL (150-450)
[2021-11-27 14:29] VITALS: BP 128/80
[2021-11-27 14:29] LABS: INR 1.74; PROTHROMBIN TIME 20.8 SECONDS (12.7-14.5)
[2021-11-27 14:42] LABS: ALBUMIN 2.8 GM/DL (3.2-5.2); BILIRUBIN,DIRECT 2.5 MG/DL (0.0-0.2); BILIRUBIN,TOTAL 5.7 MG/DL (0.2-1.0); CALCIUM LEVEL 8.2 MG/DL (8.8-10.2); CREATININE FOR GFR 1.38 MG/DL (0.70-1.30); GLOMERULAR FILTRATION RATE 55.8 (>49); POTASSIUM SERUM 3.9 MEQ/L (3.5-5.1); TOTAL PROTEIN 5.3 GM/DL (6.4-8.2)
[2021-11-27 14:46] VITALS: BP 125/76
[2021-11-27 15:00] VITALS: BP 119/73
== END ==
LOC: M IRPRO 13:15
PROVIDERS: ATTEND Internal Medicine Gastroenterology
DX: K70.31 Alcoholic cirrhosis of liver with ascites (principal)
CPT/HCPCS: 36415; 49083; 80053; 82248; 85025; 85049; 85055; 85610; 96365; P9047

== ENCOUNTER → 2021-12-02 | Outpatient (CLI) | payer MEDICARE ==
[2021-12-02 13:42] VITALS: BP 111/69
[2021-12-02 13:59] VITALS: BP 118/73
[2021-12-02 14:18] VITALS: BP 133/75
[2021-12-02 14:37] VITALS: BP 119/70
== END ==
LOC: M IRPRO 13:05
PROVIDERS: ATTEND Internal Medicine Gastroenterology
DX: R18.8 Other ascites (principal)
CPT/HCPCS: 49083; 96365; P9047

== ENCOUNTER → 2021-12-09 | Outpatient (CLI) | payer MEDICARE ==
[2021-12-09 14:18] VITALS: BP 116/69
[2021-12-09 14:32] VITALS: BP 122/66
[2021-12-09 14:45] VITALS: BP 125/70
[2021-12-09 14:56] VITALS: BP 116/67
== END ==
LOC: M IRPRO 13:11
PROVIDERS: ATTEND Internal Medicine Gastroenterology
DX: K70.31 Alcoholic cirrhosis of liver with ascites (principal)
CPT/HCPCS: 49083; 96365; P9047

== ENCOUNTER → 2021-12-16 | Outpatient (CLI) | payer MEDICARE ==
[2021-12-16 13:54] VITALS: BP 108/55
[2021-12-16 14:00] VITALS: BP 105/70
[2021-12-16 14:05] VITALS: BP 108/75
[2021-12-16 14:11] VITALS: BP 110/74
[2021-12-16 14:35] VITALS: BP 119/67
== END ==
LOC: M IRPRO 13:01
PROVIDERS: ATTEND Internal Medicine Gastroenterology
DX: K70.31 Alcoholic cirrhosis of liver with ascites (principal)
CPT/HCPCS: 49083; 96365; P9047

== ENCOUNTER → 2021-12-24 | Outpatient (CLI) | payer MEDICARE ==
[2021-12-24 11:54] VITALS: BP 117/65
[2021-12-24 12:08] VITALS: BP 105/52
[2021-12-24 12:27] VITALS: BP 111/62
[2021-12-24 12:39] VITALS: BP 103/58
[2021-12-24 12:56] VITALS: BP 108/54
== END ==
LOC: M IRPRO 11:00
PROVIDERS: ATTEND Internal Medicine Gastroenterology
DX: K70.31 Alcoholic cirrhosis of liver with ascites (principal)
CPT/HCPCS: 49083; 96365; P9047

== ENCOUNTER → 2021-12-30 | Outpatient (CLI) | payer MEDICARE ==
[2021-12-30 10:05] VITALS: BP 135/70
[2021-12-30 10:56] LABS: BASO % 0.8 % (0.0-1.0); EOS # 0.1 10^3/uL (0.0-0.5); EOS % 2.2 % (0.0-3.0); HEMATOCRIT 31.4 % (42.0-52.0); HEMOGLOBIN 10.8 g/dl (13.5-17.5); LYMPH # 0.4 10^3/uL (1.5-5.0); LYMPH % 11.1 % (24.0-44.0); MEAN CORPUSCULAR HEMOGLOBIN 34.4 pg (27.0-33.0); MEAN CORPUSCULAR HGB CONC 34.4 g/dl (32.0-36.5); MONO # 0.6 10^3/uL (0.0-0.8); MONO % 15.2 % (2.0-8.0); NEUTROPHILS # 2.6 10^3/uL (1.5-8.5); NEUTROPHILS % 70.4 % (36.0-66.0); PLATELET COUNT, AUTOMATED 48 10^3/uL (150-450); RED BLOOD COUNT 3.14 10^6/uL (4.30-6.10); WHITE BLOOD COUNT 3.7 10^3/uL (4.0-10.0)
[2021-12-30 11:06] LABS: INR 1.92; PROTHROMBIN TIME 22.4 SECONDS (12.7-14.5)
[2021-12-30 11:25] LABS: ALBUMIN 3.4 GM/DL (3.2-5.2); BILIRUBIN,TOTAL 7.3 MG/DL (0.2-1.0); CALCIUM LEVEL 8.8 MG/DL (8.8-10.2); CREATININE FOR GFR 1.57 MG/DL (0.70-1.30); GLOMERULAR FILTRATION RATE 48.1 (>49); MAGNESIUM LEVEL 2.2 MG/DL (1.8-2.4); POTASSIUM SERUM 4.4 MEQ/L (3.5-5.1)
== END ==
LOC: M IRPRO 09:57
PROVIDERS: ATTEND Internal Medicine Gastroenterology
DX: K70.31 Alcoholic cirrhosis of liver with ascites (principal); Z53.8 Procedure and treatment not carried out for other reasons

== ENCOUNTER → 2022-01-07 | Outpatient (CLI) | payer MEDICARE | LOC: M IRPRO 14:17 | PROVIDERS: ATTEND Internal Medicine Gastroenterology | DX: K70.31 Alcoholic cirrhosis of liver with ascites (principal); Z53.8 Procedure and treatment not carried out for other reasons ==

== ENCOUNTER → 2022-01-07 | Outpatient (CLI) | payer MEDICARE ==
[2022-01-07 15:20] LABS: BASO % 0.9 % (0.0-1.0); EOS # 0.1 10^3/uL (0.0-0.5); EOS % 2.3 % (0.0-3.0); HEMATOCRIT 33.1 % (42.0-52.0); HEMOGLOBIN 11.2 g/dl (13.5-17.5); LYMPH # 0.5 10^3/uL (1.5-5.0); LYMPH % 11.8 % (24.0-44.0); MEAN CORPUSCULAR HEMOGLOBIN 33.8 pg (27.0-33.0); MEAN CORPUSCULAR HGB CONC 33.8 g/dl (32.0-36.5); MONO # 0.7 10^3/uL (0.0-0.8); MONO % 15.2 % (2.0-8.0); NEUTROPHILS # 3.1 10^3/uL (1.5-8.5); NEUTROPHILS % 69.3 % (36.0-66.0); RED BLOOD COUNT 3.31 10^6/uL (4.30-6.10); WHITE BLOOD COUNT 4.4 10^3/uL (4.0-10.0)
[2022-01-07 15:22] LABS: PLATELET COUNT, AUTOMATED 47 10^3/uL (150-450)
[2022-01-07 15:33] LABS: INR 1.88
[2022-01-07 15:39] LABS: ALBUMIN 2.7 GM/DL (3.2-5.2); BILIRUBIN,TOTAL 6.1 MG/DL (0.2-1.0); CALCIUM LEVEL 8.7 MG/DL (8.8-10.2); CREATININE FOR GFR 1.35 MG/DL (0.70-1.30); POTASSIUM SERUM 4.1 MEQ/L (3.5-5.1); TOTAL PROTEIN 5.6 GM/DL (6.4-8.2)
== END ==
LOC: M IRPRO 14:25
PROVIDERS: ATTEND Internal Medicine Gastroenterology
DX: K70.30 Alcoholic cirrhosis of liver without ascites (principal)

== ENCOUNTER → 2022-01-13 | Outpatient (CLI) | payer MEDICARE ==
[2022-01-13 14:13] VITALS: BP 116/71
[2022-01-13 14:27] VITALS: BP 116/65
[2022-01-13 14:36] VITALS: BP 112/66
[2022-01-13 14:44] VITALS: BP 119/72
[2022-01-13 14:45] VITALS: BP 113/68
== END ==
LOC: M IRPRO 12:36
PROVIDERS: ATTEND Internal Medicine Gastroenterology
DX: R18.8 Other ascites (principal); K70.30 Alcoholic cirrhosis of liver without ascites
CPT/HCPCS: 49083; 80053; 83735; 85025; 85049; 85055; 85610; 96365; P9047

== ENCOUNTER → 2022-01-13 | Outpatient (CLI) | payer MEDICARE ==
[2022-01-13 13:45] LABS: BASO % 0.7 % (0.0-1.0); EOS # 0.2 10^3/uL (0.0-0.5); EOS % 3.8 % (0.0-3.0); HEMATOCRIT 31.9 % (42.0-52.0); HEMOGLOBIN 10.9 g/dl (13.5-17.5); LYMPH # 0.5 10^3/uL (1.5-5.0); LYMPH % 10.8 % (24.0-44.0); MEAN CORPUSCULAR HEMOGLOBIN 34.5 pg (27.0-33.0); MEAN CORPUSCULAR HGB CONC 34.2 g/dl (32.0-36.5); MEAN CORPUSCULAR VOLUME 100.9 fl (80.0-96.0); MONO # 0.7 10^3/uL (0.0-0.8); MONO % 15.2 % (2.0-8.0); NEUTROPHILS # 3.1 10^3/uL (1.5-8.5); NEUTROPHILS % 69.3 % (36.0-66.0); RED BLOOD COUNT 3.16 10^6/uL (4.30-6.10); WHITE BLOOD COUNT 4.5 10^3/uL (4.0-10.0)
[2022-01-13 13:46] LABS: PLATELET COUNT, AUTOMATED 45 10^3/uL (150-450)
[2022-01-13 13:58] LABS: INR 2.05; PROTHROMBIN TIME 23.5 SECONDS (12.7-14.5)
[2022-01-13 14:14] LABS: ALBUMIN 2.7 GM/DL (3.2-5.2); ALT/SGPT 38 U/L (12-78); BILIRUBIN,TOTAL 5.3 MG/DL (0.2-1.0); BLOOD UREA NITROGEN 15 MG/DL (7-18); CALCIUM LEVEL 8.6 MG/DL (8.8-10.2); CARBON DIOXIDE LEVEL 25 MEQ/L (21-32); CHLORIDE LEVEL 102 MEQ/L (98-107); CREATININE FOR GFR 1.22 MG/DL (0.70-1.30); GLOMERULAR FILTRATION RATE > 60.0 (>49); GLUCOSE, FASTING 95 MG/DL (70-100); MAGNESIUM LEVEL 1.9 MG/DL (1.8-2.4); POTASSIUM SERUM 3.8 MEQ/L (3.5-5.1); SODIUM LEVEL 135 MEQ/L (136-145); TOTAL PROTEIN 5.4 GM/DL (6.4-8.2)
== END ==
LOC: M LAB 12:43
PROVIDERS: ATTEND Internal Medicine Gastroenterology
DX: K70.30 Alcoholic cirrhosis of liver without ascites (principal)

== ENCOUNTER → 2022-01-20 | Outpatient (CLI) | payer MEDICARE ==
[2022-01-20 13:09] LABS: BASO % 0.7 % (0.0-1.0); EOS # 0.1 10^3/uL (0.0-0.5); EOS % 3.1 % (0.0-3.0); HEMATOCRIT 31.8 % (42.0-52.0); HEMOGLOBIN 11.1 g/dl (13.5-17.5); LYMPH # 0.6 10^3/uL (1.5-5.0); LYMPH % 14.5 % (24.0-44.0); MEAN CORPUSCULAR HEMOGLOBIN 35.1 pg (27.0-33.0); MEAN CORPUSCULAR HGB CONC 34.9 g/dl (32.0-36.5); MEAN CORPUSCULAR VOLUME 100.6 fl (80.0-96.0); MONO # 0.7 10^3/uL (0.0-0.8); MONO % 17.6 % (2.0-8.0); NEUTROPHILS # 2.7 10^3/uL (1.5-8.5); NEUTROPHILS % 63.6 % (36.0-66.0); RED BLOOD COUNT 3.16 10^6/uL (4.30-6.10); WHITE BLOOD COUNT 4.2 10^3/uL (4.0-10.0)
[2022-01-20 13:14] LABS: PLATELET COUNT, AUTOMATED 50 10^3/uL (150-450)
[2022-01-20 13:19] LABS: INR 1.83; PROTHROMBIN TIME 21.6 SECONDS (12.7-14.5)
[2022-01-20 13:49] LABS: BILIRUBIN,TOTAL 6.6 MG/DL (0.2-1.0); CALCIUM LEVEL 9.2 MG/DL (8.8-10.2); CREATININE FOR GFR 1.38 MG/DL (0.70-1.30); GLOMERULAR FILTRATION RATE 55.6 (>49); TOTAL PROTEIN 5.7 GM/DL (6.4-8.2)
== END ==
LOC: M LAB 12:36
PROVIDERS: ATTEND Internal Medicine Gastroenterology
DX: K70.31 Alcoholic cirrhosis of liver with ascites (principal)

== ENCOUNTER → 2022-01-20 | Outpatient (CLI) | payer MEDICARE | LOC: M IRPRO 12:28 | PROVIDERS: ATTEND Internal Medicine Gastroenterology | DX: K70.31 Alcoholic cirrhosis of liver with ascites (principal) ==

== ENCOUNTER → 2022-01-27 | Outpatient (CLI) | payer MEDICARE | LOC: M IRPRO 12:28 | PROVIDERS: ATTEND Internal Medicine Gastroenterology | DX: K70.31 Alcoholic cirrhosis of liver with ascites (principal) ==

== ENCOUNTER → 2022-02-10 | Outpatient (CLI) | payer MEDICARE ==
[2022-02-10 14:29] LABS: BASO % 0.7 % (0.0-1.0); EOS # 0.2 10^3/uL (0.0-0.5); HEMATOCRIT 31.8 % (42.0-52.0); HEMOGLOBIN 10.9 g/dl (13.5-17.5); LYMPH # 0.7 10^3/uL (1.5-5.0); LYMPH % 13.4 % (24.0-44.0); MEAN CORPUSCULAR HEMOGLOBIN 35.5 pg (27.0-33.0); MEAN CORPUSCULAR HGB CONC 34.3 g/dl (32.0-36.5); MEAN CORPUSCULAR VOLUME 103.6 fl (80.0-96.0); MONO % 19.4 % (2.0-8.0); NEUTROPHILS # 3.4 10^3/uL (1.5-8.5); NEUTROPHILS % 62.9 % (36.0-66.0); RED BLOOD COUNT 3.07 10^6/uL (4.30-6.10); WHITE BLOOD COUNT 5.4 10^3/uL (4.0-10.0)
[2022-02-10 14:34] LABS: PLATELET COUNT, AUTOMATED 51 10^3/uL (150-450)
[2022-02-10 14:48] LABS: INR 1.76; PROTHROMBIN TIME 20.9 SECONDS (12.7-14.5)
[2022-02-10 15:43] LABS: CALCIUM LEVEL 8.5 MG/DL (8.8-10.2); CREATININE FOR GFR 1.42 MG/DL (0.70-1.30); GLOMERULAR FILTRATION RATE 53.8 (>49); POTASSIUM SERUM 4.2 MEQ/L (3.5-5.1)
[2022-02-10 15:44] LABS: ALBUMIN 2.5 GM/DL (3.2-5.2); BILIRUBIN,TOTAL 4.5 MG/DL (0.2-1.0); TOTAL PROTEIN 5.3 GM/DL (6.4-8.2)
== END ==
LOC: M IRPRO 13:38
PROVIDERS: ATTEND Internal Medicine Gastroenterology
DX: K70.31 Alcoholic cirrhosis of liver with ascites (principal)

== ENCOUNTER → 2022-02-25 | Outpatient (CLI) | payer MEDICARE ==
[2022-02-25 15:35] VITALS: BP 130/73
[2022-02-25 15:41] VITALS: BP 130/71
[2022-02-25 15:45] VITALS: BP 115/71
[2022-02-25 15:50] VITALS: BP 115/72
== END ==
LOC: M IRPRO 14:17
PROVIDERS: ATTEND Internal Medicine Gastroenterology
DX: K70.31 Alcoholic cirrhosis of liver with ascites (principal)
CPT/HCPCS: 49083; 80053; 83735; 85025; 85049; 85055; 85610; 96365; P9047

== ENCOUNTER → 2022-02-25 | Outpatient (CLI) | payer MEDICARE ==
[2022-02-25 16:03] LABS: BASO % 0.8 % (0.0-1.0); EOS # 0.2 10^3/uL (0.0-0.5); EOS % 3.3 % (0.0-3.0); HEMATOCRIT 36.1 % (42.0-52.0); HEMOGLOBIN 12.1 g/dl (13.5-17.5); LYMPH # 0.7 10^3/uL (1.5-5.0); LYMPH % 14.3 % (24.0-44.0); MEAN CORPUSCULAR HGB CONC 33.5 g/dl (32.0-36.5); MEAN CORPUSCULAR VOLUME 101.4 fl (80.0-96.0); MONO # 0.8 10^3/uL (0.0-0.8); MONO % 15.8 % (2.0-8.0); NEUTROPHILS # 3.4 10^3/uL (1.5-8.5); NEUTROPHILS % 65.4 % (36.0-66.0); RED BLOOD COUNT 3.56 10^6/uL (4.30-6.10); WHITE BLOOD COUNT 5.1 10^3/uL (4.0-10.0)
[2022-02-25 16:11] LABS: PLATELET COUNT, AUTOMATED 61 10^3/uL (150-450)
[2022-02-25 16:24] LABS: ALBUMIN 2.5 GM/DL (3.2-5.2); ALT/SGPT 49 U/L (12-78); BILIRUBIN,TOTAL 7.4 MG/DL (0.2-1.0); BLOOD UREA NITROGEN 15 MG/DL (7-18); CALCIUM LEVEL 8.6 MG/DL (8.8-10.2); CARBON DIOXIDE LEVEL 27 MEQ/L (21-32); CHLORIDE LEVEL 102 MEQ/L (98-107); CREATININE FOR GFR 1.25 MG/DL (0.70-1.30); GLOMERULAR FILTRATION RATE > 60.0 (>49); GLUCOSE, FASTING 116 MG/DL (70-100); POTASSIUM SERUM 3.4 MEQ/L (3.5-5.1); SODIUM LEVEL 136 MEQ/L (136-145); TOTAL PROTEIN 6.1 GM/DL (6.4-8.2)
[2022-02-25 16:26] LABS: INR 1.74; PROTHROMBIN TIME 20.8 SECONDS (12.7-14.5)
== END ==
LOC: M LAB 14:25
PROVIDERS: ATTEND Internal Medicine Gastroenterology
DX: K70.31 Alcoholic cirrhosis of liver with ascites (principal)

== ENCOUNTER → 2022-03-03 | Outpatient (CLI) | payer MEDICARE ==
[2022-03-03 11:54] LABS: BASO # 0.1 10^3/uL (0.0-0.2); BASO % 1.1 % (0.0-1.0); EOS # 0.1 10^3/uL (0.0-0.5); EOS % 2.5 % (0.0-3.0); HEMATOCRIT 31.7 % (42.0-52.0); LYMPH # 0.6 10^3/uL (1.5-5.0); LYMPH % 13.5 % (24.0-44.0); MEAN CORPUSCULAR HEMOGLOBIN 35.4 pg (27.0-33.0); MEAN CORPUSCULAR HGB CONC 34.7 g/dl (32.0-36.5); MEAN CORPUSCULAR VOLUME 101.9 fl (80.0-96.0); MONO # 0.8 10^3/uL (0.0-0.8); MONO % 17.8 % (2.0-8.0); NEUTROPHILS # 2.8 10^3/uL (1.5-8.5); NEUTROPHILS % 64.6 % (36.0-66.0); RED BLOOD COUNT 3.11 10^6/uL (4.30-6.10); WHITE BLOOD COUNT 4.4 10^3/uL (4.0-10.0)
[2022-03-03 11:55] LABS: PLATELET COUNT, AUTOMATED 51 10^3/uL (150-450)
[2022-03-03 13:43] LABS: ALBUMIN 2.6 GM/DL (3.2-5.2); ALT/SGPT 45 U/L (12-78); BILIRUBIN,TOTAL 5.5 MG/DL (0.2-1.0); BLOOD UREA NITROGEN 17 MG/DL (7-18); CALCIUM LEVEL 8.3 MG/DL (8.8-10.2); CARBON DIOXIDE LEVEL 28 MEQ/L (21-32); CHLORIDE LEVEL 103 MEQ/L (98-107); CREATININE FOR GFR 1.28 MG/DL (0.70-1.30); GLOMERULAR FILTRATION RATE > 60.0 (>49); GLUCOSE, FASTING 115 MG/DL (70-100); POTASSIUM SERUM 3.9 MEQ/L (3.5-5.1); SODIUM LEVEL 135 MEQ/L (136-145); TOTAL PROTEIN 5.4 GM/DL (6.4-8.2)
== END ==
LOC: M IRPRO 11:08
PROVIDERS: ATTEND Internal Medicine Gastroenterology
DX: K70.30 Alcoholic cirrhosis of liver without ascites (principal)

== ENCOUNTER → 2022-03-10 | Outpatient (CLI) | payer MEDICARE ==
[2022-03-10 13:23] LABS: EOS # 0.1 10^3/uL (0.0-0.5); EOS % 2.7 % (0.0-3.0); HEMATOCRIT 31.4 % (42.0-52.0); HEMOGLOBIN 10.7 g/dl (13.5-17.5); LYMPH # 0.6 10^3/uL (1.5-5.0); LYMPH % 14.9 % (24.0-44.0); MEAN CORPUSCULAR HGB CONC 34.1 g/dl (32.0-36.5); MEAN CORPUSCULAR VOLUME 102.6 fl (80.0-96.0); MONO # 0.7 10^3/uL (0.0-0.8); MONO % 16.9 % (2.0-8.0); NEUTROPHILS # 2.7 10^3/uL (1.5-8.5); NEUTROPHILS % 64.3 % (36.0-66.0); RED BLOOD COUNT 3.06 10^6/uL (4.30-6.10); WHITE BLOOD COUNT 4.2 10^3/uL (4.0-10.0)
[2022-03-10 13:41] LABS: INR 1.77
[2022-03-10 13:46] LABS: PLATELET COUNT, AUTOMATED 55 10^3/uL (150-450)
[2022-03-10 14:03] LABS: ALBUMIN 2.5 GM/DL (3.2-5.2); ALT/SGPT 38 U/L (12-78); BILIRUBIN,TOTAL 5.7 MG/DL (0.2-1.0); BLOOD UREA NITROGEN 19 MG/DL (7-18); CALCIUM LEVEL 8.7 MG/DL (8.8-10.2); CARBON DIOXIDE LEVEL 26 MEQ/L (21-32); CHLORIDE LEVEL 106 MEQ/L (98-107); CREATININE FOR GFR 1.22 MG/DL (0.70-1.30); GLOMERULAR FILTRATION RATE > 60.0 (>49); GLUCOSE, FASTING 89 MG/DL (70-100); MAGNESIUM LEVEL 1.9 MG/DL (1.8-2.4); POTASSIUM SERUM 3.9 MEQ/L (3.5-5.1); SODIUM LEVEL 138 MEQ/L (136-145); TOTAL PROTEIN 5.3 GM/DL (6.4-8.2)
== END ==
LOC: M LAB 12:10
PROVIDERS: ATTEND Internal Medicine Gastroenterology
DX: K74.60 Unspecified cirrhosis of liver (principal)

== ENCOUNTER → 2022-03-10 | Outpatient (CLI) | payer MEDICARE ==
[~2022-03-10] MED LIST changes: +LIDOCAINE 1% MDV 20ML VIAL As Ordered ONE
[2022-03-10 12:45] VITALS: BP 125/76
[2022-03-10 12:54] VITALS: BP 123/77
[2022-03-10 13:01] VITALS: BP 121/73
[2022-03-10 13:09] VITALS: BP 120/78
[2022-03-10 13:15] VITALS: BP 126/81
== END ==
LOC: M IRPRO 11:28
PROVIDERS: ATTEND Internal Medicine Gastroenterology
DX: R18.8 Other ascites (principal); K74.60 Unspecified cirrhosis of liver
CPT/HCPCS: 49083; 80053; 83735; 85025; 85049; 85055; 85610; 96365; P9047

== ENCOUNTER → 2022-03-24 | Outpatient (CLI) | payer MEDICARE ==
[~2022-03-24] MED LIST changes: +LEVO1TAB40 PO; -LEVO750T13 PO; -LIDOCAINE 1% MDV 20ML VIAL As Ordered ONE
[2022-03-24 12:59] LABS: BASO % 0.7 % (0.0-1.0); EOS # 0.1 10^3/uL (0.0-0.5); EOS % 2.5 % (0.0-3.0); HEMOGLOBIN 11.1 g/dl (13.5-17.5); LYMPH # 0.5 10^3/uL (1.5-5.0); LYMPH % 12.3 % (24.0-44.0); MEAN CORPUSCULAR HEMOGLOBIN 34.8 pg (27.0-33.0); MEAN CORPUSCULAR HGB CONC 33.6 g/dl (32.0-36.5); MEAN CORPUSCULAR VOLUME 103.4 fl (80.0-96.0); MONO # 0.6 10^3/uL (0.0-0.8); MONO % 14.3 % (2.0-8.0); NEUTROPHILS # 3.1 10^3/uL (1.5-8.5); NEUTROPHILS % 69.7 % (36.0-66.0); RED BLOOD COUNT 3.19 10^6/uL (4.30-6.10); WHITE BLOOD COUNT 4.4 10^3/uL (4.0-10.0)
[2022-03-24 13:07] LABS: PLATELET COUNT, AUTOMATED 54 10^3/uL (150-450)
[2022-03-24 13:11] LABS: INR 1.65
[2022-03-24 13:34] LABS: ALBUMIN 2.6 GM/DL (3.2-5.2); ALT/SGPT 44 U/L (12-78); BILIRUBIN,TOTAL 6.2 MG/DL (0.2-1.0); BLOOD UREA NITROGEN 16 MG/DL (7-18); CALCIUM LEVEL 8.7 MG/DL (8.8-10.2); CARBON DIOXIDE LEVEL 23 MEQ/L (21-32); CHLORIDE LEVEL 106 MEQ/L (98-107); CREATININE FOR GFR 1.21 MG/DL (0.70-1.30); GLOMERULAR FILTRATION RATE > 60.0 (>49); GLUCOSE, FASTING 122 MG/DL (70-100); POTASSIUM SERUM 4.3 MEQ/L (3.5-5.1); SODIUM LEVEL 138 MEQ/L (136-145); TOTAL PROTEIN 5.9 GM/DL (6.4-8.2)
== END ==
LOC: M LAB 12:16
PROVIDERS: ATTEND Internal Medicine Gastroenterology
DX: K70.30 Alcoholic cirrhosis of liver without ascites (principal)

== ENCOUNTER → 2022-03-24 | Outpatient (CLI) | payer MEDICARE ==
[~2022-03-24] MED LIST changes: +LIDOCAINE 1% MDV 20ML VIAL As Ordered ONE
[2022-03-24 13:20] VITALS: BP 117/72
[2022-03-24 13:34] VITALS: BP 131/74
[2022-03-24 13:44] VITALS: BP 119/72
[2022-03-24 13:52] VITALS: BP 113/70
== END ==
LOC: M IRPRO 12:20
PROVIDERS: ATTEND Internal Medicine Gastroenterology
DX: K70.31 Alcoholic cirrhosis of liver with ascites (principal)
CPT/HCPCS: 36415; 49083; 80053; 83735; 85025; 85049; 85055; 85610; 96365; P9047

== ENCOUNTER → 2022-03-31 | Outpatient (CLI) | payer MEDICARE ==
[~2022-03-31] MED LIST changes: -LIDOCAINE 1% MDV 20ML VIAL As Ordered ONE
[2022-03-31 12:34] LABS: BASO % 0.8 % (0.0-1.0); EOS # 0.2 10^3/uL (0.0-0.5); EOS % 6.5 % (0.0-3.0); HEMATOCRIT 28.2 % (42.0-52.0); HEMOGLOBIN 9.5 g/dl (13.5-17.5); LYMPH # 0.5 10^3/uL (1.5-5.0); LYMPH % 13.8 % (24.0-44.0); MEAN CORPUSCULAR HEMOGLOBIN 35.3 pg (27.0-33.0); MEAN CORPUSCULAR HGB CONC 33.7 g/dl (32.0-36.5); MEAN CORPUSCULAR VOLUME 104.8 fl (80.0-96.0); MONO # 0.6 10^3/uL (0.0-0.8); MONO % 15.5 % (2.0-8.0); NEUTROPHILS # 2.2 10^3/uL (1.5-8.5); NEUTROPHILS % 63.1 % (36.0-66.0); RED BLOOD COUNT 2.69 10^6/uL (4.30-6.10); WHITE BLOOD COUNT 3.6 10^3/uL (4.0-10.0)
[2022-03-31 12:35] LABS: PLATELET COUNT, AUTOMATED 42 10^3/uL (150-450)
[2022-03-31 12:44] LABS: INR 1.67; PROTHROMBIN TIME 20.1 SECONDS (12.7-14.5)
[2022-03-31 13:43] LABS: ALBUMIN 2.3 GM/DL (3.2-5.2); CALCIUM LEVEL 7.8 MG/DL (8.8-10.2); CREATININE FOR GFR 1.61 MG/DL (0.70-1.30); GLOMERULAR FILTRATION RATE 46.5 (>49); MAGNESIUM LEVEL 2.2 MG/DL (1.8-2.4); POTASSIUM SERUM 6.5 MEQ/L (3.5-5.1); TOTAL PROTEIN 5.5 GM/DL (6.4-8.2)
== END ==
LOC: M LAB 11:32
PROVIDERS: ATTEND Internal Medicine Gastroenterology
DX: K72.10 Chronic hepatic failure without coma (principal)

== ENCOUNTER → 2022-03-31 | Outpatient (CLI) | payer MEDICARE, OTHER ==
[2022-03-31 12:35] VITALS: BP 118/66
[2022-03-31 12:51] VITALS: BP 103/58
[2022-03-31 12:58] VITALS: BP 113/60
[2022-03-31 13:09] VITALS: BP 98/59
== END ==
LOC: M IRPRO 11:26
PROVIDERS: ATTEND Internal Medicine Gastroenterology
DX: R18.8 Other ascites (principal); K72.10 Chronic hepatic failure without coma
CPT/HCPCS: 49083; 80053; 83735; 85025; 85027; 85049; 85055; 85610; 96365; P9047

== ENCOUNTER → 2022-04-07 | Outpatient (CLI) | payer MEDICARE ==
[2022-04-07 12:59] LABS: BASO # 0.1 10^3/uL (0.0-0.2); BASO % 1.1 % (0.0-1.0); EOS # 0.2 10^3/uL (0.0-0.5); EOS % 3.7 % (0.0-3.0); HEMATOCRIT 30.3 % (42.0-52.0); HEMOGLOBIN 10.4 g/dl (13.5-17.5); LYMPH # 0.6 10^3/uL (1.5-5.0); LYMPH % 13.5 % (24.0-44.0); MEAN CORPUSCULAR HEMOGLOBIN 35.5 pg (27.0-33.0); MEAN CORPUSCULAR HGB CONC 34.3 g/dl (32.0-36.5); MEAN CORPUSCULAR VOLUME 103.4 fl (80.0-96.0); MONO # 0.6 10^3/uL (0.0-0.8); MONO % 13.5 % (2.0-8.0); NEUTROPHILS # 3.1 10^3/uL (1.5-8.5); NEUTROPHILS % 67.8 % (36.0-66.0); RED BLOOD COUNT 2.93 10^6/uL (4.30-6.10); WHITE BLOOD COUNT 4.6 10^3/uL (4.0-10.0)
[2022-04-07 13:04] LABS: PLATELET COUNT, AUTOMATED 56 10^3/uL (150-450)
[2022-04-07 13:14] LABS: INR 1.82; PROTHROMBIN TIME 21.5 SECONDS (12.7-14.5)
[2022-04-07 13:26] LABS: ALBUMIN 2.8 GM/DL (3.2-5.2); BILIRUBIN,TOTAL 4.7 MG/DL (0.2-1.0); CALCIUM LEVEL 8.2 MG/DL (8.8-10.2); CREATININE FOR GFR 1.53 MG/DL (0.70-1.30); GLOMERULAR FILTRATION RATE 49.3 (>49); POTASSIUM SERUM 3.6 MEQ/L (3.5-5.1); TOTAL PROTEIN 5.6 GM/DL (6.4-8.2)
== END ==
LOC: M LAB 11:42
DX: K72.10 Chronic hepatic failure without coma (principal); D68.32 Hemorrhagic disorder due to extrinsic circulating anticoagulants; C22.0 Liver cell carcinoma; Z79.899 Other long term (current) drug therapy; E87.5 Hyperkalemia

== ENCOUNTER → 2022-04-07 | Outpatient (CLI) | payer MEDICARE | LOC: M IRPRO 11:33 | PROVIDERS: ATTEND Internal Medicine Gastroenterology | DX: K70.31 Alcoholic cirrhosis of liver with ascites (principal) ==

== ENCOUNTER → 2022-04-14 | Outpatient (CLI) | payer MEDICARE ==
[2022-04-14 10:51] LABS: BASO % 0.7 % (0.0-1.0); EOS # 0.1 10^3/uL (0.0-0.5); EOS % 2.2 % (0.0-3.0); HEMATOCRIT 33.5 % (42.0-52.0); HEMOGLOBIN 11.2 g/dl (13.5-17.5); LYMPH # 0.5 10^3/uL (1.5-5.0); LYMPH % 11.4 % (24.0-44.0); MEAN CORPUSCULAR HEMOGLOBIN 33.9 pg (27.0-33.0); MEAN CORPUSCULAR HGB CONC 33.4 g/dl (32.0-36.5); MEAN CORPUSCULAR VOLUME 101.5 fl (80.0-96.0); MONO # 0.7 10^3/uL (0.0-0.8); MONO % 14.6 % (2.0-8.0); NEUTROPHILS # 3.2 10^3/uL (1.5-8.5); NEUTROPHILS % 70.7 % (36.0-66.0); WHITE BLOOD COUNT 4.6 10^3/uL (4.0-10.0)
[2022-04-14 10:55] LABS: PLATELET COUNT, AUTOMATED 56 10^3/uL (150-450)
[2022-04-14 11:08] LABS: INR 1.61; PROTHROMBIN TIME 19.6 SECONDS (12.7-14.5)
[2022-04-14 11:21] LABS: BILIRUBIN,TOTAL 5.3 MG/DL (0.2-1.0); CALCIUM LEVEL 8.8 MG/DL (8.8-10.2); CREATININE FOR GFR 1.49 MG/DL (0.70-1.30); GLOMERULAR FILTRATION RATE 50.9 (>49); POTASSIUM SERUM 4.3 MEQ/L (3.5-5.1); TOTAL PROTEIN 6.2 GM/DL (6.4-8.2)
== END ==
LOC: M LAB 10:18
DX: K72.10 Chronic hepatic failure without coma (principal); D68.32 Hemorrhagic disorder due to extrinsic circulating anticoagulants; C22.0 Liver cell carcinoma; E87.5 Hyperkalemia; Z79.899 Other long term (current) drug therapy

== ENCOUNTER → 2022-04-14 | Outpatient (CLI) | payer MEDICARE | LOC: M IRPRO 10:12 | PROVIDERS: ATTEND Internal Medicine Gastroenterology | DX: K70.31 Alcoholic cirrhosis of liver with ascites (principal) ==

== ENCOUNTER → 2022-04-21 | Outpatient (CLI) | payer MEDICARE ==
[2022-04-21 12:29] LABS: BASO % 0.8 % (0.0-1.0); EOS # 0.1 10^3/uL (0.0-0.5); EOS % 2.3 % (0.0-3.0); HEMATOCRIT 34.1 % (42.0-52.0); HEMOGLOBIN 11.5 g/dl (13.5-17.5); LYMPH # 0.5 10^3/uL (1.5-5.0); LYMPH % 9.7 % (24.0-44.0); MEAN CORPUSCULAR HEMOGLOBIN 33.9 pg (27.0-33.0); MEAN CORPUSCULAR HGB CONC 33.7 g/dl (32.0-36.5); MEAN CORPUSCULAR VOLUME 100.6 fl (80.0-96.0); MONO # 0.8 10^3/uL (0.0-0.8); NEUTROPHILS # 3.7 10^3/uL (1.5-8.5); NEUTROPHILS % 70.8 % (36.0-66.0); RED BLOOD COUNT 3.39 10^6/uL (4.30-6.10); WHITE BLOOD COUNT 5.3 10^3/uL (4.0-10.0)
[2022-04-21 12:31] LABS: PLATELET COUNT, AUTOMATED 58 10^3/uL (150-450)
[2022-04-21 12:43] LABS: INR 1.62; PROTHROMBIN TIME 19.6 SECONDS (12.7-14.5)
[2022-04-21 12:56] LABS: ALBUMIN 2.8 GM/DL (3.2-5.2); BILIRUBIN,TOTAL 4.8 MG/DL (0.2-1.0); CALCIUM LEVEL 8.5 MG/DL (8.8-10.2); CREATININE FOR GFR 1.65 MG/DL (0.70-1.30); GLOMERULAR FILTRATION RATE 45.2 (>49); POTASSIUM SERUM 4.5 MEQ/L (3.5-5.1); TOTAL PROTEIN 6.4 GM/DL (6.4-8.2)
== END ==
LOC: M LAB 11:39
PROVIDERS: ATTEND Student in an Organized Health Care Education/Training Program
DX: E87.5 Hyperkalemia (principal); I10 Essential (primary) hypertension; R79.1 Abnormal coagulation profile; Z79.899 Other long term (current) drug therapy

== ENCOUNTER → 2022-04-21 | Outpatient (CLI) | payer MEDICARE | LOC: M IRPRO 11:32 | PROVIDERS: ATTEND Internal Medicine Gastroenterology | DX: K70.31 Alcoholic cirrhosis of liver with ascites (principal) ==

== ENCOUNTER → 2022-04-28 | Outpatient (CLI) | payer MEDICARE | LOC: M IRPRO 11:43 | PROVIDERS: ATTEND Internal Medicine Gastroenterology | DX: K70.31 Alcoholic cirrhosis of liver with ascites (principal) ==

== ENCOUNTER → 2022-04-28 | Outpatient (CLI) | payer MEDICARE ==
[2022-04-28 12:41] LABS: BASO % 0.4 % (0.0-1.0); EOS # 0.1 10^3/uL (0.0-0.5); EOS % 1.6 % (0.0-3.0); HEMATOCRIT 32.8 % (42.0-52.0); HEMOGLOBIN 11.3 g/dl (13.5-17.5); LYMPH # 0.5 10^3/uL (1.5-5.0); LYMPH % 9.8 % (24.0-44.0); MEAN CORPUSCULAR HEMOGLOBIN 34.8 pg (27.0-33.0); MEAN CORPUSCULAR HGB CONC 34.5 g/dl (32.0-36.5); MEAN CORPUSCULAR VOLUME 100.9 fl (80.0-96.0); MONO # 0.9 10^3/uL (0.0-0.8); MONO % 16.1 % (2.0-8.0); NEUTROPHILS % 71.7 % (36.0-66.0); RED BLOOD COUNT 3.25 10^6/uL (4.30-6.10); WHITE BLOOD COUNT 5.5 10^3/uL (4.0-10.0)
[2022-04-28 12:50] LABS: INR 1.74; PROTHROMBIN TIME 20.8 SECONDS (12.7-14.5)
[2022-04-28 13:11] LABS: ALBUMIN 2.6 GM/DL (3.2-5.2); BILIRUBIN,TOTAL 5.8 MG/DL (0.2-1.0); CALCIUM LEVEL 8.7 MG/DL (8.8-10.2); CREATININE FOR GFR 1.42 MG/DL (0.70-1.30); GLOMERULAR FILTRATION RATE 53.8 (>49); POTASSIUM SERUM 4.1 MEQ/L (3.5-5.1); TOTAL PROTEIN 5.7 GM/DL (6.4-8.2)
[2022-04-28 13:22] LABS: PLATELET COUNT, AUTOMATED 41 10^3/uL (150-450)
== END ==
LOC: M LAB 11:58
DX: K72.10 Chronic hepatic failure without coma (principal); D68.32 Hemorrhagic disorder due to extrinsic circulating anticoagulants; C22.0 Liver cell carcinoma; Z79.899 Other long term (current) drug therapy; E87.5 Hyperkalemia

== ENCOUNTER → 2022-05-04 | Outpatient (CLI) | payer MEDICARE | LOC: M IRPRO 11:53 | DX: R18.8 Other ascites (principal) ==

== ENCOUNTER → 2022-05-04 | Outpatient (CLI) | payer MEDICARE ==
[2022-05-04 13:10] LABS: BASO % 0.5 % (0.0-1.0); EOS # 0.1 10^3/uL (0.0-0.5); EOS % 2.1 % (0.0-3.0); HEMATOCRIT 33.7 % (42.0-52.0); HEMOGLOBIN 11.5 g/dl (13.5-17.5); LYMPH # 0.6 10^3/uL (1.5-5.0); LYMPH % 10.1 % (24.0-44.0); MEAN CORPUSCULAR HEMOGLOBIN 34.7 pg (27.0-33.0); MEAN CORPUSCULAR HGB CONC 34.1 g/dl (32.0-36.5); MEAN CORPUSCULAR VOLUME 101.8 fl (80.0-96.0); MONO # 0.8 10^3/uL (0.0-0.8); MONO % 12.8 % (2.0-8.0); NEUTROPHILS # 4.6 10^3/uL (1.5-8.5); NEUTROPHILS % 74.2 % (36.0-66.0); RED BLOOD COUNT 3.31 10^6/uL (4.30-6.10); WHITE BLOOD COUNT 6.2 10^3/uL (4.0-10.0)
[2022-05-04 13:17] LABS: PLATELET COUNT, AUTOMATED 49 10^3/uL (150-450)
[2022-05-04 13:19] LABS: INR 1.65
[2022-05-04 15:10] LABS: ALBUMIN 2.6 GM/DL (3.2-5.2); ALT/SGPT 49 U/L (12-78); BILIRUBIN,TOTAL 4.9 MG/DL (0.2-1.0); BLOOD UREA NITROGEN 18 MG/DL (7-18); CALCIUM LEVEL 8.7 MG/DL (8.8-10.2); CARBON DIOXIDE LEVEL 26 MEQ/L (21-32); CHLORIDE LEVEL 97 MEQ/L (98-107); CREATININE FOR GFR 1.48 MG/DL (0.70-1.30); GLOMERULAR FILTRATION RATE 51.3 (>49); GLUCOSE, FASTING 125 MG/DL (70-100); POTASSIUM SERUM 4.4 MEQ/L (3.5-5.1); SODIUM LEVEL 128 MEQ/L (136-145)
== END ==
LOC: M LAB 11:22
DX: K72.10 Chronic hepatic failure without coma (principal); D68.32 Hemorrhagic disorder due to extrinsic circulating anticoagulants; C22.0 Liver cell carcinoma; Z79.899 Other long term (current) drug therapy; E87.5 Hyperkalemia

== ENCOUNTER → 2022-05-04 | Outpatient (CLI) | payer MEDICARE | LOC: M IRPRO 11:16 | PROVIDERS: ATTEND Internal Medicine Gastroenterology | DX: K70.31 Alcoholic cirrhosis of liver with ascites (principal) ==

== ENCOUNTER → 2022-05-14 | Outpatient (CLI) | payer MEDICARE ==
[~2022-05-14] MED LIST changes: +LIDOCAINE 1% MDV 20ML VIAL As Ordered ONE
[2022-05-14 13:32] VITALS: BP 111/66
[2022-05-14 13:39] VITALS: BP 123/68
[2022-05-14 13:47] VITALS: BP 117/66
[2022-05-14 13:55] VITALS: BP 114/56
== END ==
LOC: M IRPRO 12:15
PROVIDERS: ATTEND Internal Medicine Gastroenterology
DX: R18.8 Other ascites (principal)
CPT/HCPCS: 36415; 49083; 80053; 82105; 85025; 85049; 85055; 85610; 96365; P9047

== ENCOUNTER → 2022-05-14 | Outpatient (CLI) | payer MEDICARE ==
[~2022-05-14] MED LIST changes: -LIDOCAINE 1% MDV 20ML VIAL As Ordered ONE
[2022-05-14 13:02] LABS: BASO % 0.7 % (0.0-1.0); EOS # 0.1 10^3/uL (0.0-0.5); EOS % 2.6 % (0.0-3.0); HEMATOCRIT 30.6 % (42.0-52.0); HEMOGLOBIN 10.5 g/dl (13.5-17.5); LYMPH # 0.6 10^3/uL (1.5-5.0); LYMPH % 13.9 % (24.0-44.0); MEAN CORPUSCULAR HEMOGLOBIN 35.2 pg (27.0-33.0); MEAN CORPUSCULAR HGB CONC 34.3 g/dl (32.0-36.5); MEAN CORPUSCULAR VOLUME 102.7 fl (80.0-96.0); MONO # 0.7 10^3/uL (0.0-0.8); MONO % 14.8 % (2.0-8.0); NEUTROPHILS # 3.1 10^3/uL (1.5-8.5); NEUTROPHILS % 67.8 % (36.0-66.0); RED BLOOD COUNT 2.98 10^6/uL (4.30-6.10); WHITE BLOOD COUNT 4.6 10^3/uL (4.0-10.0)
[2022-05-14 13:06] LABS: PLATELET COUNT, AUTOMATED 42 10^3/uL (150-450)
[2022-05-14 13:09] LABS: INR 1.6; PROTHROMBIN TIME 19.5 SECONDS (12.7-14.5)
[2022-05-14 13:37] LABS: ALBUMIN 2.3 GM/DL (3.2-5.2); BILIRUBIN,TOTAL 5.5 MG/DL (0.2-1.0); CALCIUM LEVEL 8.4 MG/DL (8.8-10.2); CREATININE FOR GFR 1.75 MG/DL (0.70-1.30); GLOMERULAR FILTRATION RATE 42.3 (>49); TOTAL PROTEIN 5.5 GM/DL (6.4-8.2)
== END ==
LOC: M LAB 12:13
DX: K72.10 Chronic hepatic failure without coma (principal); D68.32 Hemorrhagic disorder due to extrinsic circulating anticoagulants; C22.0 Liver cell carcinoma; E78.5 Hyperlipidemia, unspecified; Z79.899 Other long term (current) drug therapy

== ENCOUNTER 2022-06-15 20:57 | Emergency (ER) | payer MEDICARE ==
[~2022-06-15] VITALS: Ht 177.8 cm; Wt 88.7 kg
[2022-06-15] MEDS ORDERED: BACT400T PO (21:24)
[2022-06-15] MEDS ORDERED: FOLI1TAB11 PO (21:24)
[2022-06-15] MEDS ORDERED: VALG1TAB PO (21:24)
[2022-06-15] MEDS ORDERED: ASPI81TA26 PO (21:24)
[2022-06-15] MEDS ORDERED: TACR1CAP3 PO (21:24)
[2022-06-15] MEDS ORDERED: THIA100T7 PO (21:24)
[2022-06-15] MEDS ORDERED: CLOT10TR PO (21:24)
[2022-06-15] MEDS ORDERED: HYDR-4279 PO (21:24)
[2022-06-15] MEDS ORDERED: PANT40TA29 PO (21:24)
[2022-06-15] MEDS ORDERED: CELL500T PO (21:24)
[2022-06-15] MEDS ORDERED: PRED10PA PO (21:24)
[2022-06-15] MEDS ORDERED: vitamin d3 PO (21:24)
[2022-06-15 22:07] LABS: BASO % 0.3 % (0.0-1.0); HEMATOCRIT 33.4 % (42.0-52.0); HEMOGLOBIN 11.1 g/dl (13.5-17.5); LYMPH # 0.3 10^3/uL (1.5-5.0); LYMPH % 2.4 % (24.0-44.0); MEAN CORPUSCULAR HGB CONC 33.2 g/dl (32.0-36.5); MEAN CORPUSCULAR VOLUME 96.3 fl (80.0-96.0); MONO # 0.7 10^3/uL (0.0-0.8); MONO % 5.3 % (2.0-8.0); NEUTROPHILS # 11.6 10^3/uL (1.5-8.5); NEUTROPHILS % 91.4 % (36.0-66.0); PLATELET COUNT, AUTOMATED 272 10^3/uL (150-450); RED BLOOD COUNT 3.47 10^6/uL (4.30-6.10); WHITE BLOOD COUNT 12.7 10^3/uL (4.0-10.0)
[2022-06-15] MEDS ORDERED: ONDANSETRON 4MG 2ML VIAL IV ONE (22:20)
[2022-06-15] MEDS ORDERED: NS 1,000 ML IV ONE (22:20)
[2022-06-15 22:21] LABS: INR 0.92; PROTHROMBIN TIME 12.6 SECONDS (12.5-14.5)
[2022-06-15 22:22] LABS: PARTIAL THROMBOPLASTIN TIME 22.9 SECONDS (24.8-34.2)
[2022-06-15] MEDS: HYDROMORPHONE HCL 0.5 MG/ 0.5 ML SYRINGE (J1170 PER 1) IV PRN (22:33)
[2022-06-15 22:45] LABS: RSV AMPLIFICATION NEGATIVE (NEGATIVE)
[2022-06-15 22:46] LABS: CK-MB VALUE MASS < 1.0 NG/ML (<3.6); CPK CREATINE PHOSPHOKINASE 27 U/L (39-308)
[2022-06-15 22:54] LABS: ALBUMIN 3.3 GM/DL (3.2-5.2); ALT/SGPT 12 U/L (12-78); BILIRUBIN,DIRECT 0.1 MG/DL (0.0-0.2); BILIRUBIN,TOTAL 0.8 MG/DL (0.2-1.0); BLOOD UREA NITROGEN 26 MG/DL (7-18); CALCIUM LEVEL 9.2 MG/DL (8.8-10.2); CARBON DIOXIDE LEVEL 21 MEQ/L (21-32); CHLORIDE LEVEL 101 MEQ/L (98-107); CREATININE FOR GFR 1.89 MG/DL (0.70-1.30); GLOMERULAR FILTRATION RATE 38.7 (>49); GLUCOSE, FASTING 147 MG/DL (70-100); LIPASE 41 U/L (73-393); POTASSIUM SERUM 4.4 MEQ/L (3.5-5.1); SODIUM LEVEL 131 MEQ/L (136-145); TOTAL PROTEIN 6.6 GM/DL (6.4-8.2)
[2022-06-15 23:01] LABS: ETHYL ALCOHOL (ETHANOL) < 0.003 % (0.000-0.010)
[2022-06-15 23:53] LABS: CK-MB VALUE MASS < 1.0 NG/ML (<3.6); CPK CREATINE PHOSPHOKINASE 29 U/L (39-308); MB/CK RELATIVE INDEX 3.45 (< OR =4)
[2022-06-16] MEDS ORDERED: PIPERACILLIN/TAZOBACTAM SOD 3.375 GM in D5W MINI-BAG PLUS 50 ML IV ONE (00:15)
[2022-06-16] MEDS: HYDROMORPHONE HCL 0.5 MG/ 0.5 ML SYRINGE (J1170 PER 1) IV PRN (00:33)
[2022-06-16] MEDS ORDERED: HYDROMORPHONE HCL 0.5 MG/ 0.5 ML SYRINGE (J1170 PER 1) IV PRN (05:35)
[2022-06-16] MEDS ORDERED: PIPERACILLIN/TAZOBACTAM SOD 4.5 GM in D5W MINI-BAG PLUS 50 ML IV ONE (05:35)
[2022-06-16] MEDS ORDERED: ONDANSETRON 4MG 2ML VIAL IV ONE (06:10)
[2022-06-16 06:39] VITALS: BP 117/73
== END 2022-06-16 06:42 | disposition short-term general hospital (02) ==
LOC: EEVIPCON 20:57 → M ED 20:57
DX: J18.9 Pneumonia, unspecified organism (principal); Z94.4 Liver transplant status; R10.9 Unspecified abdominal pain; I49.1 Atrial premature depolarization; E11.9 Type 2 diabetes mellitus without complications; N18.9 Chronic kidney disease, unspecified; Z79.899 Other long term (current) drug therapy; Z79.82 Long term (current) use of aspirin
CPT/HCPCS: 71250; 74176; 80047; 80048; 80076; 81000; 81015; 82077; 82140; 82550; 82553; 83605; 83690; 84484; 85025; 85610; 85730; 86850; 86900; 86901; 87040; 87088; 87184; 87186; 87631; 93005; 93041; 96365; 96366; 96375; 99285; J1170; J2405; J2543

== ENCOUNTER → 2022-07-13 | Outpatient (CLI) | payer MEDICARE, SELFPAY ==
[~2022-07-13] MED LIST changes: +ASPI81TA26 PO; +BACT400T PO; +CELL500T PO; +CLOT10TR PO; +HYDR-4279 PO; +PRED10PA PO; +TACR1CAP3 PO; +VALG1TAB PO; +vitamin d3 PO
[2022-07-13 11:44] LABS: HEMATOCRIT 32.7 % (42.0-52.0); HEMOGLOBIN 10.3 g/dl (13.5-17.5); MEAN CORPUSCULAR HGB CONC 31.5 g/dl (32.0-36.5); MEAN CORPUSCULAR VOLUME 101.6 fl (80.0-96.0); PLATELET COUNT, AUTOMATED 162 10^3/uL (150-450); RED BLOOD COUNT 3.22 10^6/uL (4.30-6.10); WHITE BLOOD COUNT 6.6 10^3/uL (4.0-10.0)
[2022-07-13 12:14] LABS: ALBUMIN 3.5 G/DL (3.2-5.2); ALT/SGPT < 9 U/L (7.0-40); BILIRUBIN,DIRECT 0.2 MG/DL (<0.4); BILIRUBIN,TOTAL 0.4 MG/DL (0.3-1.2); BLOOD UREA NITROGEN 30 MG/DL (9-23); CALCIUM LEVEL 8.5 MG/DL (8.3-10.6); CARBON DIOXIDE LEVEL 21 MMOL/L (20-31); CHLORIDE LEVEL 105 MMOL/L (98-107); CREATININE FOR GFR 1.66 MG/DL (0.70-1.30); GLOMERULAR FILTRATION RATE 44.9 (>49); GLUCOSE, FASTING 94 MG/DL (74-106); MAGNESIUM LEVEL 1.2 MG/DL (1.8-2.4); POTASSIUM SERUM 4.5 MMOL/L (3.5-5.1); SODIUM LEVEL 137 MMOL/L (136-145); TOTAL PROTEIN 5.8 G/DL (5.7-8.2)
[2022-07-13 12:15] LABS: BASOPHILS 1 % (0-1); LYMPHOCYTES 11 % (16-44); MONOCYTES 2 % (0-5); NEUTROPHILS 84 % (28-66); PLATELET ESTIMATE NORMAL (NORMAL)
[2022-07-13 12:16] LABS: ANISOCYTOSIS 1+
== END ==
LOC: M LAB 10:22
PROVIDERS: ATTEND Internal Medicine Gastroenterology
DX: K72.10 Chronic hepatic failure without coma (principal); C22.0 Liver cell carcinoma; E78.5 Hyperlipidemia, unspecified; R74.8 Abnormal levels of other serum enzymes; E80.7 Disorder of bilirubin metabolism, unspecified; E61.2 Magnesium deficiency; Z79.899 Other long term (current) drug therapy

== ENCOUNTER → 2022-08-19 | Outpatient (CLI) | payer MEDICARE ==
[~2022-08-19] MED LIST changes: -VALG1TAB PO; +VALG450T10 PO
[2022-08-19 11:12] LABS: HEMATOCRIT 34.4 % (42.0-52.0); HEMOGLOBIN 10.8 g/dl (13.5-17.5); MEAN CORPUSCULAR HEMOGLOBIN 30.5 pg (27.0-33.0); MEAN CORPUSCULAR HGB CONC 31.4 g/dl (32.0-36.5); MEAN CORPUSCULAR VOLUME 97.2 fl (80.0-96.0); PLATELET COUNT, AUTOMATED 122 10^3/uL (150-450); RED BLOOD COUNT 3.54 10^6/uL (4.30-6.10)
[2022-08-19 11:43] LABS: BILIRUBIN,DIRECT 0.1 MG/DL (<0.4); MAGNESIUM LEVEL 1.7 MG/DL (1.8-2.4)
[2022-08-19 11:44] LABS: ALBUMIN 3.3 G/DL (3.2-5.2); ALKALINE PHOSPHATASE 66 U/L (46-116); ALT/SGPT < 9 U/L (7.0-40); AST/SGOT 13 U/L (<34); BILIRUBIN,TOTAL 0.4 MG/DL (0.3-1.2); BLOOD UREA NITROGEN 25 MG/DL (9-23); CALCIUM LEVEL 8.5 MG/DL (8.3-10.6); CARBON DIOXIDE LEVEL 25 MMOL/L (20-31); CHLORIDE LEVEL 107 MMOL/L (98-107); CREATININE FOR GFR 1.34 MG/DL (0.70-1.30); GLOMERULAR FILTRATION RATE 57.5 (>49); GLUCOSE, FASTING 106 MG/DL (74-106); POTASSIUM SERUM 4.2 MMOL/L (3.5-5.1); SODIUM LEVEL 139 MMOL/L (136-145); TOTAL PROTEIN 5.7 G/DL (5.7-8.2)
[2022-08-19 11:58] LABS: BASOPHILS 1 % (0-1); EOSINOPHILS 6 % (0-3); LYMPHOCYTES 21 % (16-44); MONOCYTES 9 % (0-5); NEUTROPHILS 61 % (28-66)
[2022-08-19 11:59] LABS: PLATELET ESTIMATE DECREASED (NORMAL)
== END ==
LOC: M LAB 10:22
PROVIDERS: ATTEND Internal Medicine Gastroenterology
DX: K72.10 Chronic hepatic failure without coma (principal); C22.0 Liver cell carcinoma; Z79.899 Other long term (current) drug therapy; E87.5 Hyperkalemia; R74.8 Abnormal levels of other serum enzymes; E80.7 Disorder of bilirubin metabolism, unspecified; E61.2 Magnesium deficiency

== ENCOUNTER → 2022-09-28 | Outpatient (CLI) | payer MEDICARE, SELFPAY ==
[2022-09-28 13:44] LABS: BASO % 0.6 % (0.0-1.0); EOS # 0.1 10^3/uL (0.0-0.5); EOS % 2.5 % (0.0-3.0); HEMATOCRIT 37.3 % (42.0-52.0); HEMOGLOBIN 11.8 g/dl (13.5-17.5); LYMPH # 0.5 10^3/uL (1.5-5.0); LYMPH % 9.8 % (24.0-44.0); MEAN CORPUSCULAR HEMOGLOBIN 29.5 pg (27.0-33.0); MEAN CORPUSCULAR HGB CONC 31.6 g/dl (32.0-36.5); MEAN CORPUSCULAR VOLUME 93.3 fl (80.0-96.0); MONO # 0.3 10^3/uL (0.0-0.8); MONO % 6.3 % (2.0-8.0); NEUTROPHILS # 3.9 10^3/uL (1.5-8.5); NEUTROPHILS % 76.1 % (36.0-66.0); PLATELET COUNT, AUTOMATED 165 10^3/uL (150-450); WHITE BLOOD COUNT 5.1 10^3/uL (4.0-10.0)
[2022-09-28 14:05] LABS: ALBUMIN 3.8 G/DL (3.2-5.2); BILIRUBIN,DIRECT 0.3 MG/DL (<0.4); BILIRUBIN,TOTAL 0.8 MG/DL (0.3-1.2); CALCIUM LEVEL 9.3 MG/DL (8.3-10.6); CREATININE FOR GFR 1.57 MG/DL (0.70-1.30); GLOMERULAR FILTRATION RATE 47.9 (>49); MAGNESIUM LEVEL 1.6 MG/DL (1.8-2.4); POTASSIUM SERUM 4.1 MMOL/L (3.5-5.1); TOTAL PROTEIN 5.8 G/DL (5.7-8.2)
== END ==
LOC: M LAB 12:39
PROVIDERS: ATTEND Internal Medicine Gastroenterology
DX: K72.10 Chronic hepatic failure without coma (principal); C22.0 Liver cell carcinoma; Z79.899 Other long term (current) drug therapy; E87.5 Hyperkalemia; E80.7 Disorder of bilirubin metabolism, unspecified; E61.2 Magnesium deficiency

== ENCOUNTER → 2022-11-18 | Outpatient (CLI) | payer MEDICARE ==
[2022-11-18 13:06] LABS: HEMOGLOBIN 12.5 g/dl (13.5-17.5); MEAN CORPUSCULAR HEMOGLOBIN 30.6 pg (27.0-33.0); MEAN CORPUSCULAR HGB CONC 32.9 g/dl (32.0-36.5); MEAN CORPUSCULAR VOLUME 92.9 fl (80.0-96.0); PLATELET COUNT, AUTOMATED 158 10^3/uL (150-450); RED BLOOD COUNT 4.09 10^6/uL (4.30-6.10); WHITE BLOOD COUNT 3.2 10^3/uL (4.0-10.0)
[2022-11-18 13:12] LABS: INR 0.91; PROTHROMBIN TIME 12.5 SECONDS (12.5-14.5)
[2022-11-18 13:23] LABS: ANISOCYTOSIS 1+; ATYPICAL LYMPH 6 % (0-5); EOSINOPHILS 4 % (0-3); LYMPHOCYTES 10 % (16-44); MONOCYTES 15 % (0-5); NEUTROPHILS 56 % (28-66); PLATELET ESTIMATE NORMAL (NORMAL); POIKILOCYTOSIS 1+
[2022-11-18 13:29] LABS: ALBUMIN 3.7 G/DL (3.2-5.2); BILIRUBIN,DIRECT 0.3 MG/DL (<0.4); BILIRUBIN,TOTAL 1.1 MG/DL (0.3-1.2); CREATININE FOR GFR 1.38 MG/DL (0.70-1.30); GLOMERULAR FILTRATION RATE 55.6 (>49); POTASSIUM SERUM 4.2 MMOL/L (3.5-5.1); TOTAL PROTEIN 6.2 G/DL (5.7-8.2)
== END ==
LOC: M LAB 12:04
PROVIDERS: ATTEND Internal Medicine Gastroenterology
DX: K72.10 Chronic hepatic failure without coma (principal)

== ENCOUNTER → 2022-12-30 | Outpatient (CLI) | payer MEDICARE ==
[~2022-12-30] MED LIST changes: -LOSA100T45 PO; +LOSA100T46 PO
[2022-12-30 11:49] LABS: PLATELET COUNT, AUTOMATED 169 10^3/uL (150-450)
[2022-12-30 12:11] LABS: INR 1.02; PROTHROMBIN TIME 13.6 SECONDS (12.5-14.5)
[2022-12-30 12:12] LABS: PARTIAL THROMBOPLASTIN TIME 27.3 SECONDS (24.8-34.2)
== END ==
LOC: M LAB 10:44
PROVIDERS: ATTEND Physical Medicine & Rehabilitation
DX: Z01.812 Encounter for preprocedural laboratory examination (principal)

== ENCOUNTER → 2022-12-30 | Outpatient (CLI) | payer MEDICARE ==
[2022-12-30 12:00] LABS: BASO % 0.6 % (0.0-1.0); EOS # 0.3 10^3/uL (0.0-0.5); EOS % 4.6 % (0.0-3.0); HEMATOCRIT 35.5 % (42.0-52.0); HEMOGLOBIN 11.4 g/dl (13.5-17.5); LYMPH # 0.7 10^3/uL (1.5-5.0); LYMPH % 12.4 % (24.0-44.0); MEAN CORPUSCULAR HEMOGLOBIN 28.9 pg (27.0-33.0); MEAN CORPUSCULAR HGB CONC 32.1 g/dl (32.0-36.5); MEAN CORPUSCULAR VOLUME 90.1 fl (80.0-96.0); MONO # 0.5 10^3/uL (0.0-0.8); MONO % 8.5 % (2.0-8.0); NEUTROPHILS % 73.2 % (36.0-66.0); PLATELET COUNT, AUTOMATED 171 10^3/uL (150-450); RED BLOOD COUNT 3.94 10^6/uL (4.30-6.10); WHITE BLOOD COUNT 5.4 10^3/uL (4.0-10.0)
[2022-12-30 12:11] LABS: INR 1.02; PROTHROMBIN TIME 13.6 SECONDS (12.5-14.5)
[2022-12-30 12:30] LABS: ALBUMIN 3.3 G/DL (3.2-5.2); BILIRUBIN,TOTAL 0.4 MG/DL (0.3-1.2); CALCIUM LEVEL 8.9 MG/DL (8.3-10.6); CREATININE FOR GFR 1.83 MG/DL (0.70-1.30); GLOMERULAR FILTRATION RATE 40.1 (>49); POTASSIUM SERUM 4.1 MMOL/L (3.5-5.1); TOTAL PROTEIN 5.8 G/DL (5.7-8.2)
== END ==
LOC: M LAB 10:50
PROVIDERS: ATTEND Internal Medicine Gastroenterology
DX: Z01.812 Encounter for preprocedural laboratory examination (principal); K72.10 Chronic hepatic failure without coma; T86.40 Unspecified complication of liver transplant; Z79.899 Other long term (current) drug therapy; D68.32 Hemorrhagic disorder due to extrinsic circulating anticoagulants

== ENCOUNTER → 2023-02-10 | Outpatient (CLI) | payer MEDICARE ==
[2023-02-10 12:20] LABS: BASO % 0.6 % (0.0-1.0); EOS # 0.3 10^3/uL (0.0-0.5); EOS % 4.9 % (0.0-3.0); HEMATOCRIT 34.7 % (42.0-52.0); HEMOGLOBIN 11.5 g/dl (13.5-17.5); LYMPH # 0.9 10^3/uL (1.5-5.0); LYMPH % 16.9 % (24.0-44.0); MEAN CORPUSCULAR HEMOGLOBIN 28.7 pg (27.0-33.0); MEAN CORPUSCULAR HGB CONC 33.1 g/dl (32.0-36.5); MEAN CORPUSCULAR VOLUME 86.5 fl (80.0-96.0); MONO # 0.6 10^3/uL (0.0-0.8); MONO % 11.1 % (2.0-8.0); NEUTROPHILS # 3.4 10^3/uL (1.5-8.5); NEUTROPHILS % 65.5 % (36.0-66.0); PLATELET COUNT, AUTOMATED 161 10^3/uL (150-450); RED BLOOD COUNT 4.01 10^6/uL (4.30-6.10); WHITE BLOOD COUNT 5.1 10^3/uL (4.0-10.0)
[2023-02-10 12:31] LABS: INR 0.93; PROTHROMBIN TIME 12.7 SECONDS (12.5-14.5)
[2023-02-10 12:41] LABS: ALBUMIN 3.6 G/DL (3.2-5.2); ALKALINE PHOSPHATASE 106 U/L (46-116); ALT/SGPT < 9 U/L (7.0-40); AST/SGOT < 8 U/L (<34); BILIRUBIN,TOTAL 0.6 MG/DL (0.3-1.2); BLOOD UREA NITROGEN 24 MG/DL (9-23); CALCIUM LEVEL 8.5 MG/DL (8.3-10.6); CARBON DIOXIDE LEVEL 27 MMOL/L (20-31); CHLORIDE LEVEL 106 MMOL/L (98-107); CREATININE FOR GFR 1.54 MG/DL (0.70-1.30); GLOMERULAR FILTRATION RATE 48.8 (>49); GLUCOSE, FASTING 96 MG/DL (74-106); POTASSIUM SERUM 4.5 MMOL/L (3.5-5.1); SODIUM LEVEL 139 MMOL/L (136-145); TOTAL PROTEIN 5.7 G/DL (5.7-8.2)
== END ==
LOC: M LAB 11:40
PROVIDERS: ATTEND Internal Medicine Gastroenterology
DX: K72.10 Chronic hepatic failure without coma (principal); T86.40 Unspecified complication of liver transplant; Z79.899 Other long term (current) drug therapy; D68.32 Hemorrhagic disorder due to extrinsic circulating anticoagulants

== ENCOUNTER → 2023-05-04 | Outpatient (CLI) | payer MEDICARE ==
[~2023-05-04] MED LIST changes: +DICL100G10 TOP; -DICL1GEL3 TOP
== END ==
LOC: M WHC 13:28
PROVIDERS: ATTEND Internal Medicine Gastroenterology
DX: Z94.4 Liver transplant status (principal); M85.88 Other specified disorders of bone density and structure, other site

== ENCOUNTER → 2023-06-21 | Outpatient (CLI) | payer MEDICARE ==
[2023-06-21 13:55] LABS: BASO % 0.4 % (0.0-1.0); EOS # 0.2 10^3/uL (0.0-0.5); EOS % 4.6 % (0.0-3.0); HEMATOCRIT 37.7 % (42.0-52.0); HEMOGLOBIN 12.4 g/dl (13.5-17.5); LYMPH # 1.6 10^3/uL (1.5-5.0); LYMPH % 34.7 % (24.0-44.0); MEAN CORPUSCULAR HEMOGLOBIN 27.9 pg (27.0-33.0); MEAN CORPUSCULAR HGB CONC 32.9 g/dl (32.0-36.5); MEAN CORPUSCULAR VOLUME 84.9 fl (80.0-96.0); MONO # 0.4 10^3/uL (0.0-0.8); MONO % 8.6 % (2.0-8.0); NEUTROPHILS # 2.3 10^3/uL (1.5-8.5); NEUTROPHILS % 51.5 % (36.0-66.0); PLATELET COUNT, AUTOMATED 150 10^3/uL (150-450); RED BLOOD COUNT 4.44 10^6/uL (4.30-6.10); WHITE BLOOD COUNT 4.6 10^3/uL (4.0-10.0)
[2023-06-21 13:56] LABS: INR 1.08; PROTHROMBIN TIME 13.7 SECONDS (12.5-14.5)
[2023-06-21 14:16] LABS: ALBUMIN 3.8 G/DL (3.2-5.2); CALCIUM LEVEL 9.2 MG/DL (8.3-10.6); CREATININE FOR GFR 1.39 MG/DL (0.70-1.30); GLOMERULAR FILTRATION RATE 54.9 (>49); POTASSIUM SERUM 4.1 MMOL/L (3.5-5.1); TOTAL PROTEIN 6.5 G/DL (5.7-8.2)
== END ==
LOC: M LAB 13:15
PROVIDERS: ATTEND Internal Medicine Gastroenterology
DX: K72.10 Chronic hepatic failure without coma (principal); D68.32 Hemorrhagic disorder due to extrinsic circulating anticoagulants; T86.40 Unspecified complication of liver transplant; Z79.899 Other long term (current) drug therapy

== ENCOUNTER 2023-07-06 19:38 | Inpatient (IN) | payer MEDICARE ==
[~2023-07-06] VITALS: Ht 177.8 cm; Wt 90.9 kg
[2023-07-06] MEDS ORDERED: MORPHINE 4 MG/ML 1ML VIAL IV ONE (22:05)
[2023-07-06 23:28] LABS: HEMATOCRIT 35.5 % (42.0-52.0); HEMOGLOBIN 11.8 g/dl (13.5-17.5); MEAN CORPUSCULAR HGB CONC 33.2 g/dl (32.0-36.5); MEAN CORPUSCULAR VOLUME 84.1 fl (80.0-96.0); PLATELET COUNT, AUTOMATED 146 10^3/uL (150-450); RED BLOOD COUNT 4.22 10^6/uL (4.30-6.10); WHITE BLOOD COUNT 7.1 10^3/uL (4.0-10.0)
[2023-07-07] MEDS ORDERED: LIDOCAINE 2% 5ML JELLY UROJET TOP ONE (01:50)
[2023-07-07] MEDS ORDERED: HYDROMORPHONE HCL 0.5 MG/ 0.5 ML SYRINGE IV ONE (01:50)
[2023-07-07] MEDS ORDERED: HYDROMORPHONE HCL 0.5 MG/ 0.5 ML SYRINGE IV PRN (06:20)
[2023-07-07] MEDS: HYDROMORPHONE HCL 0.5 MG/ 0.5 ML SYRINGE IV PRN ×3 (07:01→13:20)
[2023-07-07 07:29] LABS: ALBUMIN 3.4 G/DL (3.2-5.2); ALKALINE PHOSPHATASE 107 U/L (46-116); ALT/SGPT 18 U/L (7.0-40); AST/SGOT 33 U/L (<34); BILIRUBIN,TOTAL 0.9 MG/DL (0.3-1.2); BLOOD UREA NITROGEN 27 MG/DL (9-23); CALCIUM LEVEL 8.8 MG/DL (8.3-10.6); CARBON DIOXIDE LEVEL 23 MMOL/L (20-31); CHLORIDE LEVEL 105 MMOL/L (98-107); CREATININE FOR GFR 1.24 MG/DL (0.70-1.30); GLOMERULAR FILTRATION RATE > 60.0 (>49); GLUCOSE, FASTING 107 MG/DL (74-106); POTASSIUM SERUM 4.3 MMOL/L (3.5-5.1); SODIUM LEVEL 137 MMOL/L (136-145); TOTAL PROTEIN 6.1 G/DL (5.7-8.2)
[2023-07-07] MEDS ORDERED: MED REC IN PROGRESS XX SCH (10:00)
[2023-07-07] MEDS ORDERED: ONDANSETRON 4MG 2ML VIAL IV PRN (10:35)
[2023-07-07] MEDS ORDERED: NORCO, ANEXSIA 5/325MG TABLET (HYDROcodone/ACETAMINOPHEN) PO PRN (10:35)
[2023-07-07] MEDS ORDERED: MOM 30ML SUSPENSION UDC PO PRN (10:35)
[2023-07-07] MEDS ORDERED: MORPHINE 2 MG/ML 1ML VIAL IV PRN (10:35)
[2023-07-07] MEDS ORDERED: AMLO1TAB25 PO (11:37)
[2023-07-07] MEDS ORDERED: MULT-90 PO (11:37)
[2023-07-07] MEDS ORDERED: OXYC-517 PO (11:37)
[2023-07-07] MEDS ORDERED: MAGN400T2 PO (11:37)
[2023-07-07] MEDS ORDERED: HOME MED LIST COMPLETE! XX SCH (11:40)
[2023-07-07] MEDS: ENOXAPARIN 40MG/0.4ML SYRINGE (J1650 PER 10MG) SC SCH (13:19)
[2023-07-07] MEDS: ASPIRIN 81MG ENTERIC TABLET PO SCH (16:34)
[2023-07-07] MEDS: MULTIVITAMINS/MINERALS THERAP 1 TAB PO SCH (16:35)
[2023-07-07] MEDS: MAGNESIUM OXIDE 400MG TAB (MAG-OX) PO SCH (16:35)
[2023-07-07] MEDS: NORCO, ANEXSIA 5/325MG TABLET (HYDROcodone/ACETAMINOPHEN) PO PRN ×2 (16:36→22:36)
[2023-07-07 20:00] VITALS: BP 131/82; TEMP 96.6; O2SAT 93
[2023-07-07] MEDS: SENOKOT S TAB PO SCH (20:54)
[2023-07-07] MEDS: TACROLIMUS 1MG CAP PO SCH (20:54)
[2023-07-07] MEDS: KETOROLAC 30 MG/ML 1ML VIAL IV PRN (20:54)
[2023-07-08] MEDS: KETOROLAC 30 MG/ML 1ML VIAL IV PRN ×4 (02:54→21:27)
[2023-07-08] MEDS: NORCO, ANEXSIA 5/325MG TABLET (HYDROcodone/ACETAMINOPHEN) PO PRN ×3 (05:26→17:49)
[2023-07-08 05:50] VITALS: BP 125/72; TEMP 96.8; O2SAT 97
[2023-07-08 06:11] LABS: HEMOGLOBIN 10.8 g/dl (13.5-17.5); MEAN CORPUSCULAR HGB CONC 32.7 g/dl (32.0-36.5); MEAN CORPUSCULAR VOLUME 85.5 fl (80.0-96.0); PLATELET COUNT, AUTOMATED 124 10^3/uL (150-450); RED BLOOD COUNT 3.86 10^6/uL (4.30-6.10)
[2023-07-08 06:32] LABS: ALBUMIN 3.2 G/DL (3.2-5.2); BILIRUBIN,TOTAL 0.9 MG/DL (0.3-1.2); CALCIUM LEVEL 8.5 MG/DL (8.3-10.6); CREATININE FOR GFR 1.64 MG/DL (0.70-1.30); GLOMERULAR FILTRATION RATE 45.4 (>49); POTASSIUM SERUM 4.4 MMOL/L (3.5-5.1); TOTAL PROTEIN 5.6 G/DL (5.7-8.2)
[2023-07-08] MEDS: SENOKOT S TAB PO SCH ×2 (08:27→20:14)
[2023-07-08] MEDS: MAGNESIUM OXIDE 400MG TAB (MAG-OX) PO SCH (08:27)
[2023-07-08] MEDS: ENOXAPARIN 40MG/0.4ML SYRINGE (J1650 PER 10MG) SC SCH (08:27)
[2023-07-08] MEDS: ASPIRIN 81MG ENTERIC TABLET PO SCH (08:27)
[2023-07-08] MEDS: MULTIVITAMINS/MINERALS THERAP 1 TAB PO SCH (08:27)
[2023-07-08] MEDS: PANTOPRAZOLE 40MG TAB (PROTONIX) PO SCH (08:27)
[2023-07-08 10:12] VITALS: BP 120/80; TEMP 96.6; O2SAT 93
[2023-07-08] MEDS: TACROLIMUS 1MG CAP PO SCH ×2 (11:34→20:14)
[2023-07-08] MEDS ORDERED: INFLUENZA QUADRIVALENT PF VACCINE 0.5ML SYRINGE IM.IMMUN ONE (12:00)
[2023-07-08] MEDS ORDERED: ISOVUE-370 76% 100ML VIAL As Ordered ONE (13:46)
[2023-07-08 15:00] VITALS: BP 140/80; TEMP 98.1; O2SAT 96
[2023-07-08 20:30] VITALS: BP 127/79; TEMP 97.7; O2SAT 95
[2023-07-09] MEDS: NORCO, ANEXSIA 5/325MG TABLET (HYDROcodone/ACETAMINOPHEN) PO PRN ×3 (00:02→12:56)
[2023-07-09] MEDS: KETOROLAC 30 MG/ML 1ML VIAL IV PRN ×2 (04:13→11:12)
[2023-07-09 05:35] VITALS: BP 138/84; TEMP 97.9; O2SAT 97
[2023-07-09 06:18] LABS: HEMATOCRIT 33.9 % (42.0-52.0); HEMOGLOBIN 11.3 g/dl (13.5-17.5); MEAN CORPUSCULAR HEMOGLOBIN 28.1 pg (27.0-33.0); MEAN CORPUSCULAR HGB CONC 33.3 g/dl (32.0-36.5); MEAN CORPUSCULAR VOLUME 84.3 fl (80.0-96.0); PLATELET COUNT, AUTOMATED 140 10^3/uL (150-450); RED BLOOD COUNT 4.02 10^6/uL (4.30-6.10); WHITE BLOOD COUNT 4.7 10^3/uL (4.0-10.0)
[2023-07-09 06:48] LABS: ALBUMIN 3.2 G/DL (3.2-5.2); BILIRUBIN,TOTAL 0.7 MG/DL (0.3-1.2); CALCIUM LEVEL 8.6 MG/DL (8.3-10.6); CREATININE FOR GFR 1.68 MG/DL (0.70-1.30); GLOMERULAR FILTRATION RATE 44.2 (>49); POTASSIUM SERUM 4.2 MMOL/L (3.5-5.1); TOTAL PROTEIN 5.9 G/DL (5.7-8.2)
[2023-07-09 08:30] VITALS: BP 90/48
[2023-07-09] MEDS: SENOKOT S TAB PO SCH (09:00)
[2023-07-09] MEDS: TACROLIMUS 1MG CAP PO SCH (09:24)
[2023-07-09] MEDS: MULTIVITAMINS/MINERALS THERAP 1 TAB PO SCH (09:25)
[2023-07-09] MEDS: ASPIRIN 81MG ENTERIC TABLET PO SCH (09:25)
[2023-07-09] MEDS: MAGNESIUM OXIDE 400MG TAB (MAG-OX) PO SCH (09:25)
[2023-07-09 09:26] VITALS: BP 138/84
[2023-07-09] MEDS: PANTOPRAZOLE 40MG TAB (PROTONIX) PO SCH (09:26)
[2023-07-09] MEDS: ENOXAPARIN 40MG/0.4ML SYRINGE (J1650 PER 10MG) SC SCH (09:27)
[2023-07-09 13:11] VITALS: BP 130/53
[2023-07-09] MEDS ORDERED: ACET-683 PO (15:15)
[2023-07-09] MEDS ORDERED: LIDO1PAD TOP (15:15)
[2023-07-09] MEDS ORDERED: CYCL-707 PO (15:15)
[2023-07-09] MEDS ORDERED: IBUP-1022 PO (15:15)
== END 2023-07-09 16:50 | disposition home or self-care (01) | DRG 964 ==
LOC: M ED 19:38 → M ED INP 07-07 03:40 → ENRESERV 07-07 15:40 → M MS5PR 07-07 16:15
PROVIDERS: ADMIT Internal Medicine; ATTEND Student in an Organized Health Care Education/Training Program
DX: S22.41XA Multiple fractures of ribs, right side, initial encounter for closed fracture (principal); S37.20XA Unspecified injury of bladder, initial encounter; S32.509A Unspecified fracture of unspecified pubis, initial encounter for closed fracture; Z94.4 Liver transplant status; D84.9 Immunodeficiency, unspecified; S52.201A Unspecified fracture of shaft of right ulna, initial encounter for closed fracture; K70.30 Alcoholic cirrhosis of liver without ascites; K21.9 Gastro-esophageal reflux disease without esophagitis; R58 Hemorrhage, not elsewhere classified; I12.9 Hypertensive chronic kidney disease with stage 1 through stage 4 chronic kidney disease, or unspecified chronic kidney disease; N18.30 Chronic kidney disease, stage 3 unspecified; J45.909 Unspecified asthma, uncomplicated; W18.30XA Fall on same level, unspecified, initial encounter; Y92.009 Unspecified place in unspecified non-institutional (private) residence as the place of occurrence of the external cause; Z79.82 Long term (current) use of aspirin; Z79.899 Other long term (current) drug therapy

== ENCOUNTER → 2023-07-21 | Outpatient (CLI) | payer MEDICARE ==
[~2023-07-21] MED LIST changes: +ACET-683 PO; +AMLO1TAB25 PO; +CYCL-707 PO; +IBUP-1022 PO; +LIDO1PAD TOP; +MAGN400T2 PO; +MULT-90 PO
== END ==
LOC: M SOG 11:24
PROVIDERS: ATTEND Physician Assistant
DX: S32.89XD Fracture of other parts of pelvis, subsequent encounter for fracture with routine healing (principal); M79.631 Pain in right forearm

== ENCOUNTER 2023-07-26 15:55 | Observation (INO) | payer MEDICARE ==
[~2023-07-26] VITALS: Ht 177.8 cm; Wt 92.3 kg
[2023-07-26] MEDS ORDERED: ACETAMINOPHEN TAB 650MG DOSE (2X325MG) PO PRN (17:25)
[2023-07-26] MEDS ORDERED: MOM 30ML SUSPENSION UDC PO PRN (17:25)
[2023-07-26 18:00] VITALS: BP 143/84; TEMP 98.4; O2SAT 97
[2023-07-26] MEDS ORDERED: MORPHINE 2 MG/ML 1ML VIAL IV PRN (18:00)
[2023-07-26] MEDS ORDERED: CYCL10TA20 PO (18:08)
[2023-07-26] MEDS ORDERED: HOME MED LIST COMPLETE! XX SCH (18:10)
[2023-07-26] MEDS ORDERED: CYCLOBENZAPRINE 5MG TABLET PO PRN (18:10)
[2023-07-26] MEDS ORDERED: oxyCODONE 5MG TAB PO PRN (18:10)
[2023-07-26 18:19] LABS: HEMATOCRIT 31.5 % (42.0-52.0); HEMOGLOBIN 10.5 g/dl (13.5-17.5); MEAN CORPUSCULAR HEMOGLOBIN 27.7 pg (27.0-33.0); MEAN CORPUSCULAR HGB CONC 33.3 g/dl (32.0-36.5); MEAN CORPUSCULAR VOLUME 83.1 fl (80.0-96.0); PLATELET COUNT, AUTOMATED 186 10^3/uL (150-450); RED BLOOD COUNT 3.79 10^6/uL (4.30-6.10)
[2023-07-26 18:52] LABS: ALBUMIN 3.3 G/DL (3.2-5.2); ALKALINE PHOSPHATASE 196 U/L (46-116); ALT/SGPT 23 U/L (7.0-40); AST/SGOT 11 U/L (<34); BILIRUBIN,DIRECT 0.2 MG/DL (<0.4); BILIRUBIN,TOTAL 0.5 MG/DL (0.3-1.2); BLOOD UREA NITROGEN 24 MG/DL (9-23); CALCIUM LEVEL 8.8 MG/DL (8.3-10.6); CARBON DIOXIDE LEVEL 25 MMOL/L (20-31); CHLORIDE LEVEL 106 MMOL/L (98-107); CREATININE FOR GFR 1.22 MG/DL (0.70-1.30); GLOMERULAR FILTRATION RATE > 60.0 (>49); GLUCOSE, FASTING 116 MG/DL (74-106); POTASSIUM SERUM 4.4 MMOL/L (3.5-5.1); SODIUM LEVEL 138 MMOL/L (136-145); TOTAL PROTEIN 6.1 G/DL (5.7-8.2)
[2023-07-26 19:55] VITALS: BP 128/82; TEMP 98.4; O2SAT 98
[2023-07-26] MEDS: TACROLIMUS 1MG CAP PO SCH (20:24)
[2023-07-26] MEDS: DOCUSATE SODIUM 100MG CAPSULE PO SCH (20:25)
[2023-07-26] MEDS: MORPHINE 4 MG/ML 1ML VIAL IV PRN (22:40)
[2023-07-27] MEDS: MORPHINE 4 MG/ML 1ML VIAL IV PRN ×2 (04:54→08:42)
[2023-07-27] MEDS: HEPARIN SOD (PORCINE) 5000UNITS/ML 1ML VIAL/SYRINGE SC SCH ×3 (05:04→20:40)
[2023-07-27] MEDS ORDERED: CALCIUM CARBONATE 500 MG CHEW U/D PO ONE (05:05)
[2023-07-27 05:30] VITALS: BP 130/79; TEMP 98.8; O2SAT 98
[2023-07-27] MEDS: TACROLIMUS 1MG CAP PO SCH ×2 (08:45→20:40)
[2023-07-27] MEDS: MULTIVITAMINS/MINERALS THERAP 1 TAB PO SCH (08:45)
[2023-07-27] MEDS: DOCUSATE SODIUM 100MG CAPSULE PO SCH ×2 (08:45→20:40)
[2023-07-27] MEDS: PANTOPRAZOLE 40MG TAB (PROTONIX) PO SCH (08:45)
[2023-07-27] MEDS: MAGNESIUM OXIDE 400MG TAB (MAG-OX) PO SCH (08:45)
[2023-07-27] MEDS: oxyCODONE 5MG TAB PO PRN ×3 (11:44→23:47)
[2023-07-27 14:06] VITALS: BP 108/73; TEMP 98.1; O2SAT 97
[2023-07-27 20:15] VITALS: BP 126/85; TEMP 98.2; O2SAT 96
[2023-07-28] VITALS (8 sets, daily range): BP systolic 112–136; BP diastolic 66–96; TEMP 97.2–98.2; O2SAT 95–98
[2023-07-28] MEDS: HEPARIN SOD (PORCINE) 5000UNITS/ML 1ML VIAL/SYRINGE SC SCH ×3 (05:49→20:11)
[2023-07-28 06:25] LABS: HEMATOCRIT 32.8 % (42.0-52.0); HEMOGLOBIN 10.8 g/dl (13.5-17.5); MEAN CORPUSCULAR HEMOGLOBIN 27.1 pg (27.0-33.0); MEAN CORPUSCULAR HGB CONC 32.9 g/dl (32.0-36.5); MEAN CORPUSCULAR VOLUME 82.4 fl (80.0-96.0); PLATELET COUNT, AUTOMATED 192 10^3/uL (150-450); RED BLOOD COUNT 3.98 10^6/uL (4.30-6.10); WHITE BLOOD COUNT 4.1 10^3/uL (4.0-10.0)
[2023-07-28 06:50] LABS: CALCIUM LEVEL 8.8 MG/DL (8.3-10.6); CREATININE FOR GFR 1.4 MG/DL (0.70-1.30); GLOMERULAR FILTRATION RATE 54.5 (>49); POTASSIUM SERUM 4.4 MMOL/L (3.5-5.1)
[2023-07-28] MEDS: MORPHINE 4 MG/ML 1ML VIAL IV PRN (06:51)
[2023-07-28] MEDS: PANTOPRAZOLE 40MG TAB (PROTONIX) PO SCH (09:43)
[2023-07-28] MEDS: oxyCODONE 5MG TAB PO PRN (09:43)
[2023-07-28] MEDS: MAGNESIUM OXIDE 400MG TAB (MAG-OX) PO SCH (09:43)
[2023-07-28] MEDS: DOCUSATE SODIUM 100MG CAPSULE PO SCH ×2 (09:43→20:34)
[2023-07-28] MEDS: TACROLIMUS 1MG CAP PO SCH ×2 (09:43→20:23)
[2023-07-28] MEDS: MULTIVITAMINS/MINERALS THERAP 1 TAB PO SCH (09:43)
[2023-07-28] MEDS ORDERED: fentaNYL 100 MCG/2 ML INJECTION As Ordered ONE (09:54)
[2023-07-28] MEDS ORDERED: MIDAZOLAM INJ 2MG/2ML VIAL As Ordered ONE (09:54)
[2023-07-28] MEDS ORDERED: LIDOCAINE 2% 100MG/5ML SDV (FOR ANES.) As Ordered ONE (09:54)
[2023-07-28] MEDS ORDERED: propofoL 200 MG/20 ML VIAL As Ordered ONE (09:54)
[2023-07-28] MEDS ORDERED: ONDANSETRON 4MG 2ML VIAL As Ordered ONE (09:55)
[2023-07-28] MEDS ORDERED: ROPIvacaine 0.5% 30ML VIAL PN ONE (10:20)
[2023-07-28] MEDS ORDERED: MIDAZOLAM INJ 2MG/2ML VIAL IV PRN (10:20)
[2023-07-28] MEDS ORDERED: LIDOCAINE 1% SDV 5ML VIAL PN ONE (10:20)
[2023-07-28] MEDS ORDERED: dexAMETHasone 10MG/1ML VIAL PRES.FREE PN ONE (10:20)
[2023-07-28] MEDS: fentaNYL 100 MCG/2 ML INJECTION IV PRN ×2 (10:53→10:54)
[2023-07-28] MEDS ORDERED: BACITRACIN OINTMENT 30GM TUBE As Ordered ONE (11:04)
[2023-07-28] MEDS ORDERED: ACETAMINOPHEN 1000MG 100ML IV BAG As Ordered ONE (11:45)
[2023-07-28] MEDS ORDERED: fentaNYL 100 MCG/2 ML INJECTION IV PRN (13:20)
[2023-07-28] MEDS ORDERED: LR 1,000 ML IV SCH (13:20)
[2023-07-28] MEDS ORDERED: HYDROMORPHONE HCL 0.5 MG/ 0.5 ML SYRINGE IV PRN (13:20)
[2023-07-28] MEDS ORDERED: oxyCODONE 5MG TAB PO PRN (13:20)
[2023-07-28] MEDS ORDERED: ONDANSETRON 4MG 2ML VIAL IV PRN (13:20)
[2023-07-28] MEDS: CALCIUM CARBONATE 500 MG CHEW U/D PO PRN (20:33)
[2023-07-28] MEDS: ceFAZolin SOD 1 GM in D5W MINI-BAG PLUS 50 ML IV SCH (20:33)
[2023-07-29] MEDS: CALCIUM CARBONATE 500 MG CHEW U/D PO PRN ×3 (00:34→11:50)
[2023-07-29 02:00] VITALS: BP 130/83; TEMP 98.6; O2SAT 95
[2023-07-29] MEDS: ceFAZolin SOD 1 GM in D5W MINI-BAG PLUS 50 ML IV SCH ×2 (03:44→11:46)
[2023-07-29] MEDS: oxyCODONE 5MG TAB PO PRN ×3 (03:59→18:50)
[2023-07-29] MEDS: HEPARIN SOD (PORCINE) 5000UNITS/ML 1ML VIAL/SYRINGE SC SCH ×3 (05:30→21:05)
[2023-07-29 06:00] VITALS: BP 146/87; TEMP 97; O2SAT 95
[2023-07-29] MEDS: MORPHINE 4 MG/ML 1ML VIAL IV PRN ×5 (06:38→21:05)
[2023-07-29 08:00] VITALS: BP 144/86; TEMP 97.2; O2SAT 96
[2023-07-29] MEDS: MULTIVITAMINS/MINERALS THERAP 1 TAB PO SCH (09:04)
[2023-07-29] MEDS: DOCUSATE SODIUM 100MG CAPSULE PO SCH ×2 (09:05→21:05)
[2023-07-29] MEDS: PANTOPRAZOLE 40MG TAB (PROTONIX) PO SCH (09:06)
[2023-07-29] MEDS: MAGNESIUM OXIDE 400MG TAB (MAG-OX) PO SCH (09:06)
[2023-07-29] MEDS: TACROLIMUS 1MG CAP PO SCH ×2 (09:06→21:05)
[2023-07-29 09:57] LABS: HEMATOCRIT 32.7 % (42.0-52.0); MEAN CORPUSCULAR HEMOGLOBIN 27.6 pg (27.0-33.0); MEAN CORPUSCULAR HGB CONC 33.6 g/dl (32.0-36.5); MEAN CORPUSCULAR VOLUME 82.2 fl (80.0-96.0); PLATELET COUNT, AUTOMATED 217 10^3/uL (150-450); RED BLOOD COUNT 3.98 10^6/uL (4.30-6.10); WHITE BLOOD COUNT 7.3 10^3/uL (4.0-10.0)
[2023-07-29 10:00] VITALS: BP 143/85; TEMP 98.2; O2SAT 93
[2023-07-29 10:54] LABS: CALCIUM LEVEL 9.1 MG/DL (8.3-10.6); CREATININE FOR GFR 1.36 MG/DL (0.70-1.30); GLOMERULAR FILTRATION RATE 56.3 (>49); POTASSIUM SERUM 3.9 MMOL/L (3.5-5.1)
[2023-07-29 13:50] VITALS: BP 107/75; TEMP 98.8; O2SAT 96
[2023-07-29 20:06] VITALS: BP 137/97; TEMP 98.4; O2SAT 98
[2023-07-30] MEDS: MORPHINE 4 MG/ML 1ML VIAL IV PRN ×2 (01:03→13:15)
[2023-07-30] MEDS: oxyCODONE 5MG TAB PO PRN ×2 (04:23→10:43)
[2023-07-30] MEDS: HEPARIN SOD (PORCINE) 5000UNITS/ML 1ML VIAL/SYRINGE SC SCH (05:22)
[2023-07-30 05:43] VITALS: BP 122/74; TEMP 97.9; O2SAT 97
[2023-07-30 09:22] VITALS: BP 122/74
[2023-07-30] MEDS: DOCUSATE SODIUM 100MG CAPSULE PO SCH (09:22)
[2023-07-30] MEDS: MAGNESIUM OXIDE 400MG TAB (MAG-OX) PO SCH (09:22)
[2023-07-30] MEDS: PANTOPRAZOLE 40MG TAB (PROTONIX) PO SCH (09:22)
[2023-07-30] MEDS: TACROLIMUS 1MG CAP PO SCH (09:22)
[2023-07-30] MEDS: MULTIVITAMINS/MINERALS THERAP 1 TAB PO SCH (09:22)
[2023-07-30] MEDS ORDERED: OXYC-517 PO (11:54)
== END 2023-07-30 13:45 | disposition home or self-care (01) ==
LOC: PREINTOOBSV 17:20 → M MS5PR 17:22
PROVIDERS: ADMIT Internal Medicine; ATTEND Internal Medicine
DX: S52.201A Unspecified fracture of shaft of right ulna, initial encounter for closed fracture (principal); W11.XXXA Fall on and from ladder, initial encounter; Y92.89 Other specified places as the place of occurrence of the external cause; Y93.9 Activity, unspecified; I10 Essential (primary) hypertension; K21.9 Gastro-esophageal reflux disease without esophagitis; K74.60 Unspecified cirrhosis of liver; Z94.4 Liver transplant status; Z79.82 Long term (current) use of aspirin; J30.2 Other seasonal allergic rhinitis; Z79.620 Long term (current) use of immunosuppressive biologic
CPT/HCPCS: 25545; 36415; 76000; 80048; 80076; 85027; 87635; 96365; 96366; 96372; 96375; 96376; 97161; 97530; C1713; C1762; G0378; J0131; J0665; J0690; J1100; J2250; J2405; J2795; J3010; J7507

== ENCOUNTER → 2023-08-09 | Outpatient (CLI) | payer MEDICARE ==
[~2023-08-09] MED LIST changes: +CYCL10TA20 PO
== END ==
LOC: M SOG 07:52
PROVIDERS: ATTEND Physician Assistant
DX: S52.231A Displaced oblique fracture of shaft of right ulna, initial encounter for closed fracture (principal); X58.XXXA Exposure to other specified factors, initial encounter; Y92.9 Unspecified place or not applicable

== ENCOUNTER → 2023-09-09 | Outpatient (CLI) | payer MEDICARE, OTHER | LOC: M SOG 15:32 | PROVIDERS: ATTEND Physician Assistant | DX: S52.231A Displaced oblique fracture of shaft of right ulna, initial encounter for closed fracture (principal); X58.XXXA Exposure to other specified factors, initial encounter; Y92.9 Unspecified place or not applicable; Y93.9 Activity, unspecified; Y99.9 Unspecified external cause status ==

== ENCOUNTER → 2023-10-12 | Outpatient (CLI) | payer MEDICARE ==
[2023-10-12 13:07] LABS: BASO % 0.5 % (0.0-1.0); EOS # 0.2 10^3/uL (0.0-0.5); EOS % 2.9 % (0.0-3.0); HEMATOCRIT 35.9 % (42.0-52.0); HEMOGLOBIN 11.8 g/dl (13.5-17.5); LYMPH # 1.5 10^3/uL (1.5-5.0); LYMPH % 24.9 % (24.0-44.0); MEAN CORPUSCULAR HEMOGLOBIN 27.3 pg (27.0-33.0); MEAN CORPUSCULAR HGB CONC 32.9 g/dl (32.0-36.5); MEAN CORPUSCULAR VOLUME 83.1 fl (80.0-96.0); MONO # 0.4 10^3/uL (0.0-0.8); MONO % 6.3 % (2.0-8.0); NEUTROPHILS # 3.8 10^3/uL (1.5-8.5); NEUTROPHILS % 65.2 % (36.0-66.0); PLATELET COUNT, AUTOMATED 214 10^3/uL (150-450); RED BLOOD COUNT 4.32 10^6/uL (4.30-6.10); WHITE BLOOD COUNT 5.9 10^3/uL (4.0-10.0)
[2023-10-12 13:27] LABS: ALBUMIN 3.6 G/DL (3.2-5.2); BILIRUBIN,DIRECT 0.2 MG/DL (<0.4); BILIRUBIN,TOTAL 0.6 MG/DL (0.3-1.2); CREATININE FOR GFR 1.39 MG/DL (0.70-1.30); GLOMERULAR FILTRATION RATE 54.9 (>49); POTASSIUM SERUM 4.5 MMOL/L (3.5-5.1); TOTAL PROTEIN 6.2 G/DL (5.7-8.2)
[2023-10-13 19:07] LABS: CMV QUANT DNA PCR (PLASMA) Negative (Negative)
== END ==
LOC: M LAB 10:48
PROVIDERS: ATTEND Internal Medicine Gastroenterology
DX: E80.7 Disorder of bilirubin metabolism, unspecified (principal); F10.10 Alcohol abuse, uncomplicated; B25.9 Cytomegaloviral disease, unspecified; T86.40 Unspecified complication of liver transplant; Z79.899 Other long term (current) drug therapy; K72.10 Chronic hepatic failure without coma; R74.8 Abnormal levels of other serum enzymes; R82.5 Elevated urine levels of drugs, medicaments and biological substances; E87.5 Hyperkalemia

== ENCOUNTER → 2023-10-21 | Outpatient (CLI) | payer MEDICARE | LOC: M SOG 09:05 | PROVIDERS: ATTEND Physician Assistant | DX: S52.231A Displaced oblique fracture of shaft of right ulna, initial encounter for closed fracture (principal); W18.30XA Fall on same level, unspecified, initial encounter; Y92.009 Unspecified place in unspecified non-institutional (private) residence as the place of occurrence of the external cause ==

== ENCOUNTER → 2023-12-08 | Outpatient (CLI) | payer MEDICARE ==
[2023-12-08 11:38] LABS: BASO % 0.5 % (0.0-1.0); EOS # 0.1 10^3/uL (0.0-0.5); EOS % 3.4 % (0.0-3.0); HEMATOCRIT 36.6 % (42.0-52.0); HEMOGLOBIN 11.9 g/dl (13.5-17.5); LYMPH % 24.6 % (24.0-44.0); MEAN CORPUSCULAR HEMOGLOBIN 27.7 pg (27.0-33.0); MEAN CORPUSCULAR HGB CONC 32.5 g/dl (32.0-36.5); MEAN CORPUSCULAR VOLUME 85.1 fl (80.0-96.0); MONO # 0.4 10^3/uL (0.0-0.8); MONO % 8.7 % (2.0-8.0); NEUTROPHILS # 2.6 10^3/uL (1.5-8.5); NEUTROPHILS % 62.6 % (36.0-66.0); PLATELET COUNT, AUTOMATED 192 10^3/uL (150-450); WHITE BLOOD COUNT 4.1 10^3/uL (4.0-10.0)
[2023-12-08 12:00] LABS: BLOOD UREA NITROGEN 20 MG/DL (9-23); CALCIUM LEVEL 9.1 MG/DL (8.3-10.6); CARBON DIOXIDE LEVEL 26 MMOL/L (20-31); CHLORIDE LEVEL 106 MMOL/L (98-107); CREATININE FOR GFR 1.21 MG/DL (0.70-1.30); GLOMERULAR FILTRATION RATE > 60.0 (>49); GLUCOSE, FASTING 98 MG/DL (74-106); POTASSIUM SERUM 4.4 MMOL/L (3.5-5.1); SODIUM LEVEL 139 MMOL/L (136-145)
== END ==
LOC: M LAB 11:09
PROVIDERS: ATTEND Family Medicine
DX: Z01.818 Encounter for other preprocedural examination (principal); G89.29 Other chronic pain

== ENCOUNTER → 2024-07-17 | Outpatient (CLI) | payer MEDICARE ==
[~2024-07-17] MED LIST changes: +DOXY-441 PO; -DOXY-443 PO; +E-Z-GAS II EFFERVESCENT PACKET (SODIUM BICARB./CITRIC ACID/SIMETHICONE) As Ordered ONE; +E-Z-HD 98% w/w 340GM SUSP BTL As Ordered ONE; +E-Z-PAQUE 96% w/w SUSP 176GM BTL As Ordered ONE; +FAMO1TAB11 PO; -LACT10SO3 PO; +LACT10SO94 PO; -MIDO10TA PO; +MIDO10TA3 PO; +ONE1TAB2 PO
== END ==
LOC: M RAD 07:59
PROVIDERS: ATTEND Surgery
DX: R13.10 Dysphagia, unspecified (principal); K44.9 Diaphragmatic hernia without obstruction or gangrene

== ENCOUNTER → 2024-08-09 | Outpatient (CLI) | payer OTHER ==
[~2024-08-09] MED LIST changes: -E-Z-GAS II EFFERVESCENT PACKET (SODIUM BICARB./CITRIC ACID/SIMETHICONE) As Ordered ONE; -E-Z-HD 98% w/w 340GM SUSP BTL As Ordered ONE; -E-Z-PAQUE 96% w/w SUSP 176GM BTL As Ordered ONE
== END ==
LOC: M WHC 13:11
PROVIDERS: ATTEND Family Medicine
DX: Z13.820 Encounter for screening for osteoporosis (principal); M85.851 Other specified disorders of bone density and structure, right thigh

== ENCOUNTER → 2024-08-30 | Outpatient (CLI) | payer MEDICARE, OTHER ==
[~2024-08-30] MED LIST changes: +PRED10TA2 PO
[2024-08-30 13:56] LABS: BASO % 0.7 % (0.0-1.0); EOS # 0.2 10^3/uL (0.0-0.5); HEMATOCRIT 42.8 % (42.0-52.0); HEMOGLOBIN 13.8 g/dl (13.5-17.5); LYMPH # 1.2 10^3/uL (1.5-5.0); LYMPH % 21.8 % (24.0-44.0); MEAN CORPUSCULAR HEMOGLOBIN 27.9 pg (27.0-33.0); MEAN CORPUSCULAR HGB CONC 32.2 g/dl (32.0-36.5); MEAN CORPUSCULAR VOLUME 86.5 fl (80.0-96.0); MONO # 0.4 10^3/uL (0.0-0.8); MONO % 7.2 % (2.0-8.0); NEUTROPHILS # 3.7 10^3/uL (1.5-8.5); NEUTROPHILS % 66.9 % (36.0-66.0); PLATELET COUNT, AUTOMATED 208 10^3/uL (150-450); RED BLOOD COUNT 4.95 10^6/uL (4.30-6.10); WHITE BLOOD COUNT 5.6 10^3/uL (4.0-10.0)
[2024-08-30 14:28] LABS: TOTAL 25(OH) VITAMIN D 33.8 NG/ML (20.0-100.0)
[2024-08-30 14:32] LABS: ALBUMIN 3.9 G/DL (3.2-5.2); BILIRUBIN,DIRECT 0.2 MG/DL (<0.4); BILIRUBIN,TOTAL 0.6 MG/DL (0.3-1.2); CALCIUM LEVEL 9.3 MG/DL (8.3-10.6); CREATININE FOR GFR 1.29 MG/DL (0.70-1.30); GLOMERULAR FILTRATION RATE 59.7 (>49); MAGNESIUM LEVEL 1.8 MG/DL (1.8-2.4); POTASSIUM SERUM 4.7 MMOL/L (3.5-5.1); TOTAL PROTEIN 6.9 G/DL (5.7-8.2)
[2024-08-31 23:58] LABS: FK 506 (TACROLIMUS) 6.3 mcg/L (5.0-20.0)
[2024-09-02 15:47] LABS: EBV PCR QUANTITATIVE Not Detected copies/mL; EBV SOURCE Whole Blood; log10 EBV DNA QN PCR Not Detected Log cps/mL
[2024-09-02 16:27] LABS: CMV QUANT DNA PCR (PLASMA) Not Detected; CMV SOURCE Whole Blood; log10 CMV QN DNA P1 Not Detected log IU/mL
[2024-09-05 17:03] LABS: PHOSPHATIDYLETHANOL NEGATIVE ng/mL (<20); PLPETOH NEGATIVE ng/mL (<20)
== END ==
LOC: M LAB 13:10
PROVIDERS: ATTEND Internal Medicine Gastroenterology
DX: K72.10 Chronic hepatic failure without coma (principal); F10.10 Alcohol abuse, uncomplicated; Z79.899 Other long term (current) drug therapy; T86.40 Unspecified complication of liver transplant; E55.9 Vitamin D deficiency, unspecified; E61.2 Magnesium deficiency; B25.9 Cytomegaloviral disease, unspecified
CPT/HCPCS: 36415; 80053; 80197; 82248; 82306; 82977; 83735; 85025; 87497; 87799; G0480

== ENCOUNTER 2024-09-06 09:49 | Emergency (ER) | payer OTHER ==
[~2024-09-06] VITALS: Ht 174 cm; Wt 105.6 kg
[~2024-09-06 09:49] MED LIST changes: -PRED10TA2 PO
[2024-09-06 11:54] VITALS: BP 140/78; TEMP 97; O2SAT 95
[2024-09-06] MEDS: KETOROLAC 30 MG/ML 1ML VIAL IM ONE (13:05)
[2024-09-06] MEDS ORDERED: PRED10TA2 PO (13:10)
== END 2024-09-06 13:19 | disposition home or self-care (01) ==
LOC: M ED 09:49
DX: M75.121 Complete rotator cuff tear or rupture of right shoulder, not specified as traumatic (principal); M25.511 Pain in right shoulder; Z94.4 Liver transplant status; Z91.048 Other nonmedicinal substance allergy status; Z79.82 Long term (current) use of aspirin; Z79.899 Other long term (current) drug therapy; Z79.52 Long term (current) use of systemic steroids
CPT/HCPCS: 73030; 96372; 99283; J1885

== ENCOUNTER → 2024-12-18 | Outpatient (CLI) | payer MEDICARE, OTHER ==
[~2024-12-18] MED LIST changes: -CLOT10TR PO; +CLOT10TR11 PO; +PRED10TA2 PO
[2024-12-18 13:40] LABS: BASO % 0.6 % (0.0-1.0); EOS # 0.2 10^3/uL (0.0-0.5); EOS % 3.8 % (0.0-3.0); HEMATOCRIT 41.5 % (42.0-52.0); HEMOGLOBIN 13.7 g/dl (13.5-17.5); LYMPH # 1.5 10^3/uL (1.5-5.0); LYMPH % 28.5 % (24.0-44.0); MEAN CORPUSCULAR HEMOGLOBIN 28.3 pg (27.0-33.0); MEAN CORPUSCULAR VOLUME 85.7 fl (80.0-96.0); MONO # 0.5 10^3/uL (0.0-0.8); NEUTROPHILS % 57.9 % (36.0-66.0); PLATELET COUNT, AUTOMATED 215 10^3/uL (150-450); RED BLOOD COUNT 4.84 10^6/uL (4.30-6.10); WHITE BLOOD COUNT 5.2 10^3/uL (4.0-10.0)
[2024-12-18 14:08] LABS: ALBUMIN 3.9 G/DL (3.2-5.2); BILIRUBIN,TOTAL 0.6 MG/DL (0.3-1.2); CREATININE FOR GFR 1.34 MG/DL (0.70-1.30); GLOMERULAR FILTRATION RATE 59.2 (>49); MAGNESIUM LEVEL 1.8 MG/DL (1.8-2.4); POTASSIUM SERUM 4.5 MMOL/L (3.5-5.1); TOTAL PROTEIN 6.6 G/DL (5.7-8.2)
[2024-12-18 14:10] LABS: TOTAL 25(OH) VITAMIN D 32.6 NG/ML (20.0-100.0)
[2024-12-20 10:03] LABS: FK 506 (TACROLIMUS) 8.1 mcg/L (5.0-20.0)
[2024-12-22 08:29] LABS: EBV PCR QUANTITATIVE Not Detected; log10 EBV DNA QN PCR Not Detected Log IU/mL
[2024-12-22 10:22] LABS: CMV QUANT DNA PCR (PLASMA) Not Detected; log10 CMV QN DNA P1 Not Detected log IU/mL
[2024-12-22 18:52] LABS: PHOSPHATIDYLETHANOL NEGATIVE ng/mL (<20); PLPETOH NEGATIVE ng/mL (<20)
== END ==
LOC: M LAB 12:37
PROVIDERS: ATTEND Internal Medicine Gastroenterology
DX: K72.10 Chronic hepatic failure without coma (principal); Z79.899 Other long term (current) drug therapy; F10.10 Alcohol abuse, uncomplicated; T86.40 Unspecified complication of liver transplant; E55.9 Vitamin D deficiency, unspecified; E61.2 Magnesium deficiency; B25.9 Cytomegaloviral disease, unspecified; G25.81 Restless legs syndrome; R20.2 Paresthesia of skin

== ENCOUNTER → 2024-12-18 | Outpatient (CLI) | payer MEDICARE, OTHER ==
[2024-12-18 13:39] LABS: BASO % 0.6 % (0.0-1.0); EOS # 0.2 10^3/uL (0.0-0.5); EOS % 3.2 % (0.0-3.0); HEMATOCRIT 41.5 % (42.0-52.0); HEMOGLOBIN 13.8 g/dl (13.5-17.5); LYMPH # 1.5 10^3/uL (1.5-5.0); LYMPH % 30.6 % (24.0-44.0); MEAN CORPUSCULAR HGB CONC 33.3 g/dl (32.0-36.5); MEAN CORPUSCULAR VOLUME 84.2 fl (80.0-96.0); MONO # 0.4 10^3/uL (0.0-0.8); MONO % 8.2 % (2.0-8.0); NEUTROPHILS # 2.8 10^3/uL (1.5-8.5); NEUTROPHILS % 57.2 % (36.0-66.0); PLATELET COUNT, AUTOMATED 229 10^3/uL (150-450); RED BLOOD COUNT 4.93 10^6/uL (4.30-6.10)
[2024-12-18 14:09] LABS: ALBUMIN 3.8 G/DL (3.2-5.2); ALKALINE PHOSPHATASE 101 U/L (40-129); ALT/SGPT 21 U/L (7.0-40); AST/SGOT 12 U/L (<34); BILIRUBIN,TOTAL 0.6 MG/DL (0.3-1.2); BLOOD UREA NITROGEN 25 MG/DL (9-23); CARBON DIOXIDE LEVEL 24 MMOL/L (20-31); CHLORIDE LEVEL 106 MMOL/L (98-107); CREATININE FOR GFR 1.33 MG/DL (0.70-1.30); FOLATE > 24.00 NG/ML (>5.4); GLOMERULAR FILTRATION RATE 59.7 (>49); GLUCOSE, FASTING 102 MG/DL (74-106); POTASSIUM SERUM 4.5 MMOL/L (3.5-5.1); SODIUM LEVEL 139 MMOL/L (136-145); THYROID STIMULATING HORMONE 1.224 uIU/ML (0.55-4.78); TOTAL PROTEIN 6.6 G/DL (5.7-8.2); VITAMIN B12 LEVEL 527 PG/ML (211-911)
[2024-12-18 14:10] LABS: FREE T4 1.33 NG/DL (0.89-1.76)
== END ==
LOC: M LAB 12:35
PROVIDERS: ATTEND Family Medicine
DX: G25.81 Restless legs syndrome (principal); R20.2 Paresthesia of skin; Z79.899 Other long term (current) drug therapy; K72.10 Chronic hepatic failure without coma; F10.10 Alcohol abuse, uncomplicated; T86.40 Unspecified complication of liver transplant; E55.9 Vitamin D deficiency, unspecified; E61.2 Magnesium deficiency; B25.9 Cytomegaloviral disease, unspecified
CPT/HCPCS: 36415; 80053; 80197; 82306; 82607; 82746; 83036; 83735; 84439; 84443; 85025; 87497; 87799; G0480

== ENCOUNTER → 2025-05-25 | Outpatient (CLI) | payer MEDICARE ==
[~2025-05-25] MED LIST changes: +HYDR12.510 PO; -HYDR12CA PO; -IBUP-1022 PO; +IBUP600T42 PO
[2025-05-25 12:40] LABS: BASO # 0.0 10^3/uL (0.0-0.2); BASO % 0.4 % (0.0-1.0); EOS # 0.3 10^3/uL (0.0-0.5); EOS % 5.6 % (0.0-3.0); LYMPH # 1.5 10^3/uL (1.5-5.0); LYMPH % 28.0 % (24.0-44.0); MONO # 0.5 10^3/uL (0.0-0.8); MONO % 9.3 % (2.0-8.0); NEUTROPHILS # 2.9 10^3/uL (1.5-8.5); NEUTROPHILS % 56.5 % (36.0-66.0); PLATELET COUNT, AUTOMATED 229 10^3/uL (150-450)
[2025-05-25 13:04] LABS: ALT/SGPT 20.0 U/L (7.0-40); AST/SGOT 19.0 U/L (<34); CALCIUM LEVEL 9.0 MG/DL (8.3-10.6); CARBON DIOXIDE LEVEL 26.0 MMOL/L (20-31); CHLORIDE LEVEL 105.0 MMOL/L (98-107); CHOLESTEROL LEVEL 145.0 MG/DL (<200); CHOLESTEROL RISK RATIO 3.25 (<5); CREATININE FOR GFR 1.36 MG/DL (0.70-1.30); GLOMERULAR FILTRATION RATE 57.8 (>49); IRON (FE) 43.0 UG/DL (65-175); LDL CHOLESTEROL 69.3 MG/DL (<100); NON-HDL-C 100.5 MG/DL; PERCENT SATURATION 12.4 % (19.7-50.0); POTASSIUM SERUM 4.3 MMOL/L (3.5-5.1); SODIUM LEVEL 140.0 MMOL/L (136-145); TRIGLYCERIDES LEVEL 156.0 MG/DL (<150)
== END ==
LOC: M LAB 11:39
PROVIDERS: ATTEND Family Medicine
DX: I10 Essential (primary) hypertension (principal)

== ENCOUNTER → 2025-05-25 | Outpatient (CLI) | payer MEDICARE ==
[2025-05-25 12:41] LABS: BASO # 0.0 10^3/uL (0.0-0.2); BASO % 0.6 % (0.0-1.0); EOS # 0.3 10^3/uL (0.0-0.5); EOS % 5.9 % (0.0-3.0); LYMPH # 1.5 10^3/uL (1.5-5.0); LYMPH % 27.9 % (24.0-44.0); MONO # 0.5 10^3/uL (0.0-0.8); MONO % 9.7 % (2.0-8.0); NEUTROPHILS # 3.0 10^3/uL (1.5-8.5); NEUTROPHILS % 55.7 % (36.0-66.0); PLATELET COUNT, AUTOMATED 219 10^3/uL (150-450)
[2025-05-25 13:05] LABS: ALT/SGPT 21.0 U/L (7.0-40); AST/SGOT 17.0 U/L (<34); CALCIUM LEVEL 8.9 MG/DL (8.3-10.6); CARBON DIOXIDE LEVEL 26.0 MMOL/L (20-31); CHLORIDE LEVEL 105.0 MMOL/L (98-107); CREATININE FOR GFR 1.36 MG/DL (0.70-1.30); GLOMERULAR FILTRATION RATE 57.8 (>49); MAGNESIUM LEVEL 1.8 MG/DL (1.8-2.4); POTASSIUM SERUM 4.4 MMOL/L (3.5-5.1); SODIUM LEVEL 139.0 MMOL/L (136-145)
[2025-05-25 13:06] LABS: TOTAL 25(OH) VITAMIN D 34.5 NG/ML (20.0-100.0)
[2025-05-29 17:37] LABS: CMV QUANT DNA PCR (PLASMA) Not Detected; log10 CMV QN DNA P1 Not Detected log IU/mL
[2025-05-29 20:17] LABS: EBV PCR QUANTITATIVE Not Detected
[2025-05-30 12:27] LABS: FK 506 (TACROLIMUS) 10.4 mcg/L (5.0-20.0)
[2025-05-30 19:12] LABS: PHOSPHATIDYLETHANOL NEGATIVE ng/mL (<20); PLPETOH NEGATIVE ng/mL (<20)
== END ==
LOC: M LAB 11:41
PROVIDERS: ATTEND Internal Medicine Gastroenterology
DX: B25.9 Cytomegaloviral disease, unspecified (principal); K72.10 Chronic hepatic failure without coma; Z79.899 Other long term (current) drug therapy; F10.10 Alcohol abuse, uncomplicated; T86.40 Unspecified complication of liver transplant; E55.9 Vitamin D deficiency, unspecified; E61.2 Magnesium deficiency; I10 Essential (primary) hypertension
CPT/HCPCS: 36415; 80053; 80061; 80197; 82248; 82306; 82977; 83550; 83735; 85025; 87497; 87799; G0480

== ENCOUNTER → 2025-06-27 | Outpatient (REF) | payer MEDICARE ==
[2025-06-27 17:18] LABS: BASO # 0.0 10^3/uL (0.0-0.2); BASO % 0.5 % (0.0-1.0); EOS # 0.2 10^3/uL (0.0-0.5); EOS % 3.7 % (0.0-3.0); LYMPH # 1.7 10^3/uL (1.5-5.0); LYMPH % 28.1 % (24.0-44.0); MONO # 0.5 10^3/uL (0.0-0.8); MONO % 9.1 % (2.0-8.0); NEUTROPHILS # 3.5 10^3/uL (1.5-8.5); NEUTROPHILS % 58.3 % (36.0-66.0); PLATELET COUNT, AUTOMATED 215 10^3/uL (150-450)
[2025-06-27 17:25] LABS: CALCIUM LEVEL 9.3 MG/DL (8.3-10.6); CARBON DIOXIDE LEVEL 24.0 MMOL/L (20-31); CHLORIDE LEVEL 106.0 MMOL/L (98-107); CREATININE FOR GFR 1.31 MG/DL (0.70-1.30); GLOMERULAR FILTRATION RATE 60.4 (>49); POTASSIUM SERUM 4.8 MMOL/L (3.5-5.1); SODIUM LEVEL 141.0 MMOL/L (136-145)
== END ==
LOC: M SFHCLERA 13:57
PROVIDERS: ATTEND Family Medicine
DX: Z01.818 Encounter for other preprocedural examination (principal)